=== PATIENT | female | born 1950 | race American Indian/Alaskan Native ===

== ENCOUNTER 2017-05-13 06:45 | Inpatient (IN) | payer MEDICARE, MEDICAID ==
[2017-05-13 06:46] VITALS: BMI 30.4
[2017-05-13 07:14] LABS: BASO # 0.1 K/uL (0.0-0.2); BASO % 1.4 % (0.0-2.0); EOS # 0.3 K/uL (0.0-0.7); EOS % 4.7 % (0.0-4.0); HEMATOCRIT 31.4 % (34.0-47.0); LYMPH # 0.7 K/uL (1.0-4.3); LYMPH % 12.5 % (20.0-40.0); MEAN CELL VOLUME 92.1 fL (81.0-99.0); MEAN CORPUSCULAR HEMOGLOBIN 28.8 pg (27.0-31.0); MEAN CORPUSCULAR HGB CONC 31.3 g/dL (33.0-37.0); MEAN PLATELET VOLUME 9.5 fL (7.2-11.7); MONO # 0.4 K/uL (0.0-0.8); MONO % 7.2 % (0.0-10.0); NRBC % 0.1 % (0.0-2.0); RED CELL DISTRIBUTION WIDTH 17.5 % (11.5-14.5); WHITE BLOOD COUNT 5.8 K/uL (4.8-10.8)
[2017-05-13 07:33] LABS: POTASSIUM 4.9 mmol/L (3.6-5.2)
[2017-05-13 07:35] LABS: ALB/GLOB RATIO 1.2 (1.0-2.1); BILIRUBIN,TOTAL 0.8 mg/dL (0.2-1.3); TOTAL PROTEIN 6.8 g/dL (6.3-8.3)
[2017-05-13 07:36] LABS: CALCIUM 8.5 mg/dl (8.6-10.4)
[2017-05-13 07:48] LABS: INR 2.4
[2017-05-13] MEDS ORDERED: Cefepime IV 1 gm in Dextrose 1 GM/50 ML BAG IVPB STA (08:23)
[2017-05-13] MEDS ORDERED: Sodium Chloride 0.9% 500 ML IV ONE ×2 (08:33→09:40)
--- NOTE | 2017-05-13 08:37 | C.PDOC ---
History Of Present Illness 67 year old female, with a PMHx of Diabetes, COPD, and CHF, sent to the ED from [facility] for evaluation of painful right heel wound for unknown duration. HPI limited due to language barrier, patient speaks Creole. Patient denies fever, but admits that the area is painful. Time Seen by Provider: 05/13/17 07:06 Chief Complaint (Nursing): Lower Extremity Problem/Injury History Per: Patient, Other (NH records & PMD) History/Exam Limitations: language barrier (patient speaks Creole ) Onset/Duration Of Symptoms: Unknown Current Symptoms Are (Timing): Still Present Severity: Moderate Additional History Per: Longterm Past Medical History Reviewed: Historical Data, Nursing Documentation, Vital Signs Vital Signs: Last Vital Signs Temp 97.9 F 05/13/17 06:52 Pulse 58 L 05/13/17 06:52 Resp 20 05/13/17 06:52 BP 154/98 H 05/13/17 06:52 Pulse Ox 94 L 05/13/17 08:42 - Medical History PMH: CHF, Diabetes, HTN, Hypercholesterolemia, End Stage Renal Disease, Chronic Kidney Disease - [facility] Procedures ANGIOPLASTY OF OTHER NON-CORONARY VESSEL(S) (09/15/14) ATHERECTOMY OF OTHER NON-CORONARY VESSEL(S) (01/14/14) CONTRAST ARTERIOGRAM-LEG (09/15/14) INSEJ [id number] PERIPHERAL NON-CORONARY VES STENT(S) (02/10/14) INSEJ OF DRUG-ELUTING STENT(S) OF OTH PERIPHERAL VESSEL(S) (09/15/14) INSERTION OF ONE VASCULAR STENT (09/15/14) LOC EXC LES METATAR/TAR (03/20/14) PACKED CELL TRANSFUSION (01/14/14) PROCEDURE ON SINGLE VESSEL (09/15/14) RADICAL EXCIS SKIN LES (01/11/99) VENOUS CATHETERIZATION NEC (03/03/14) Family History: States: No Known Family Hx - Social History Hx Tobacco Use: No Hx Alcohol Use: No Hx Substance Use: No - Immunization History Hx Tetanus Toxoid Vaccination: No (unknown) Hx Influenza Vaccination: No (unknown) Hx Pneumococcal Vaccination: (unknown) Review Of Systems Except As Marked, All Systems Reviewed And Found Negative. Constitutional: Negative for: Fever Cardiovascular: Negative for: Chest Pain, Palpitations Respiratory: Negative for: Cough, Shortness of Breath Gastrointestinal: Negative for: Abdominal Pain Musculoskeletal: Positive for: Other (right heel pain, wound ) Physical Exam - Physical Exam Appears: Well, Non-toxic, No Acute Distress Skin: Warm, Dry Head: Atraumatic, Normacephalic Eye(s): bilateral: Normal Inspection Oral Mucosa: Moist Cardiovascular: Rhythm Regular Respiratory: Normal Breath Sounds, No Rales, No Rhonchi, No Wheezing Gastrointestinal/Abdominal: Normal Exam, Bowel Sounds, Soft, No Tenderness, No Distention Extremity: Normal ROM, Tenderness (right heel ulcer, right foot warm to touch), No Pedal Edema, No Calf Tenderness, Other (approx 4-5 cm ulcer to the right heel with foul smelling, with discharge, chronic skin changes B/L lower legs) Pulses: Left Dorsalis Pedis: Normal, Right Dorsalis Pedis: Normal Neurological/Psych: Oriented x3 ED Course And Treatment - Laboratory Results Result Diagrams: 05/13/17 07:11 05/13/17 07:11 ECG: Interpreted By Me, Viewed By Me (sinus bradycardia 59 bpm, PVCs, left axis deviation, RBBB, no acute ST changes) ECG Interpretation: Abnormal O2 Sat by Pulse Oximetry: 94 (RA) Pulse Ox Interpretation: Normal - Other Rad right foot Xray X-Ray: Interpreted by Me, Viewed By Me (no fractures, no gas, no obvious periosteal elevation) Progress Note: Blood work, EKG, right foot X-Ray, and wound cultures were ordered. Patient given IV NS bolus, IV Vancomycin and IV cefepime. Consult entered for Dr. Romero, who has seen patient previously. - Physician Consult Information Physician Contacted: Maite Denis Outcome Of Conversation: Discussed patient with PMD, he agrees with admission for infected diabetic foot wound, dehydration/ARF. Disposition - Disposition Referrals: Maite Denis MD [Primary Care Provider] - Disposition Time: 08:33 Condition: STABLE Forms: [facility] (Bruneian) - Clinical Impression Clinical Impression: Diabetic infection of right foot, Acute on chronic renal failure, Dehydration - Scribe Statement The provider has reviewed the documentation as recorded by the Scribe Lesia Castellano All medical record entries made by the Scribe were at my direction and personally dictated by me. I have reviewed the chart and agree that the record accurately reflects my personal performance of the history, physical exam, medical decision making, and the department course for this patient. I have also personally directed, reviewed, and agree with the discharge instructions and disposition. Decision To Admit - Pt Status Changed To: Hospital Disposition Of: Inpatient - Admit Certification Admit to Inpatient:: After my assessment, the patient will require hospitalization for at least two midnights. This is because of the severity of symptoms shown, intensity of services needed, and/or the medical risk in this patient being treated as an outpatient. - InPatient: Physician Admission Certification: I certify that this patient requires 2 or more midnights of care for the following reason:: see notes - . Bed Request Type: Regular Admitting Physician: Maite Denis Patient Diagnosis: Diabetic infection of right foot, Dehydration, Acute on chronic renal failure
[2017-05-13] MEDS ORDERED: Vancomycin 1 gm/NS 200 ml 1 GM/200 ML BAG IVPB SCH (09:00)
[2017-05-13] MEDS ORDERED: Vancomycin 1 gm/NS 200 ml 1 GM/200 ML BAG IVPB ONE ×2 (09:00→10:00)
[2017-05-13] MEDS ORDERED: Vancomycin 1 GM 1 GM/250 ML BAG IVPB SCH (09:00)
[2017-05-13] MEDS ORDERED: Oxycodone/Acetaminophen 5/325 mg Tab PO PRN (10:01)
[2017-05-13] MEDS ORDERED: Sodium Chloride 0.9% 1,000 ML IV SCH (10:30)
--- NOTE | 2017-05-13 10:35 | CP.PCM.CON ---
History of Present Illness - History of Present Illness History of Present Illness: 67 year old female, with a PMHx of Diabetes, COPD, and CHF, sent to the ED from [facility] for evaluation of painful right heel wound for unknown duration. Has had surgery on right foot 2014 - 5th ray resection with angioplasty - Medical History PMH: CHF, Diabetes, HTN, Hypercholesterolemia, End Stage Renal Disease, Chronic Kidney Disease PVD - [facility] Procedures ANGIOPLASTY OF OTHER NON-CORONARY VESSEL(S) (09/15/14) ATHERECTOMY OF OTHER NON-CORONARY VESSEL(S) (01/14/14) CONTRAST ARTERIOGRAM-LEG (09/15/14) INSEJ [id number] PERIPHERAL NON-CORONARY VES STENT(S) (02/10/14) INSEJ OF DRUG-ELUTING STENT(S) OF OTH PERIPHERAL VESSEL(S) (09/15/14) INSERTION OF ONE VASCULAR STENT (09/15/14) LOC EXC LES METATAR/TAR (03/20/14) PACKED CELL TRANSFUSION (01/14/14) PROCEDURE ON SINGLE VESSEL (09/15/14) RADICAL EXCIS SKIN LES (01/11/99) VENOUS CATHETERIZATION NEC (03/03/14) Review of Systems - Constitutional Constitutional: As Per HPI - EENT Eyes: absent: As Per HPI, Blind Spots, Blurred Vision, Change in Vision, Decreased Night Vision, Diplopia, Discharge, Dry Eye, Exophthalmos, Floaters, Irritation, Itchy Eyes, Loss of Peripheral Vision, Pain, Photophobia, Requires Corrective Lenses, Sees Flashes, Spots in Vision, Tunnel Vision, Other Visual Disturbances, Loss of Vision, Other Ears: absent: As Per HPI, Decreased Hearing, Ear Discharge, Ear Pain, Tinnitus, Abnormal Hearing, Disequilibrium, Dizziness, Other Nose/Mouth/Throat: absent: As Per HPI, Epistaxis, Nasal Congestion, Nasal Discharge, Nasal Obstruction, Nasal Trauma, Nose Pain, Post Nasal Drip, Sinus Pain, Sinus Pressure, Bleeding Gums, Change in Voice, Dental Pain, Dry Mouth, Dysphagia, Halitosis, Hoarsness, Lip Swelling, Mouth Lesions, Mouth Pain, Odynophagia, Sore Throat, Throat Swelling, Tongue Swelling, Facial Pain, Neck Pain, Neck Mass, Other - Breasts Breasts: absent: As Per HPI, Change in Shape, Mass, Pain, Nipple Discharge, Nipple Inversion, Skin Changes, Swelling, Other - Cardiovascular Cardiovascular: absent: As Per HPI, Acrocyanosis, Chest Pain, Chest Pain at Rest , Chest Pain with Activity, Claudication, Diaphoresis, Dyspnea, Dyspnea on Exertion, Edema, Irregular Heart Rhythm, Pain Radiating to Arm/Neck/Jaw, Leg Edema, Leg Ulcers, Lightheadedness, Orthopnea, Palpitations, Paroxysmal Nocturnal Dyspnea, Pedal Edema, Radiating Pain, Rapid Heart Rate, Slow Heart Rate, Syncope, Other - Respiratory Respiratory: absent: As Per HPI, Cough, Dyspnea, Hemoptysis, Dyspnea on Exertion , Wheezing, Snoring, Stridor, Pain on Inspiration, Chest Congestion, Excessive Mucous Production, Change in Mucous Color, Pain with Coughing, Other - Gastrointestinal Gastrointestinal: absent: As Per HPI, Abdominal Pain, Belching, Bloating, Change in Bowel Habits, Change in Stool Character, Coffee Ground Emesis, Constipation, Cramping, Diarrhea, Dyspepsia, Dysphagia, Early Satiety, Excessive Flatus, Fecal Incontinence, Heartburn, Hematemesis, Hematochezia, Loose Stools, Melena, Nausea, Odynophagia, Temesmus, Vomiting, Other - Genitourinary Genitourinary: absent: As Per HPI, Change in Urinary Stream, Difficulty Urinating, Dysuria, Flank Pain, Hematuria, Pyuria, Nocturia, Urinary Incontinence, Urinary Frequency, Urinary Hesitance, Urinary Urgency, Voiding Freq/Small Amts, Freq UTI, Hx Renal/Bladder Calculi, Hx /Renal Surgery, Bladder Distension, Other - Reproductive: Female Reproductive:Female: absent: As Per HPI, Amenorrhea, Amenorrhea/ Control, Currently Menstual, Cycle <21 Days, Cycle >35 Days, Cycle Variable, Menses 1-7 Days, Menses >/= 8 Days, Menses Variable, Cycle > 4 Weeks Between, No Menses for 6 Months, Heavy Menses, Light Menses, Normal Menses, Spotting Between Cycles , S/P Hysterectomy, Menopausal, Post Menopausal, Premenarche, Abnormal Vaginal Bleeding, Dysmenorrhea, Dyspareunia, Genital Lesions, Genital Pruritis, Pelvic Pain, Prolapse Symptoms, Sexual Dysfunction, Vaginal Discharge, Vaginal Dryness , Vaginal Odor, Vaginal Pruritis, Other - Menstruation Menstruation: absent: As Per HPI, Amenorrhea, Amenorrhea/ Control, Currently Menstual, Cycle <21 Days, Cycle >35 Days, Cycle Variable, Menses 1-7 Days, Menses >/= 8 Days, Menses Variable, Cycle > 4 Weeks Between, No Menses for 6 Months, Heavy Menses, Light Menses, Normal Menses, Spotting Between Cycles , S/P Hysterectomy, Menopausal, Post Menopausal, Premenarche, Abnormal Vaginal Bleeding, Dysmenorrhea, Other - Musculoskeletal Musculoskeletal: As Per HPI, Numbness - Integumentary Integumentary: As Per HPI, Skin Pain, Wounds - Neurological Neurological: As Per HPI - Psychiatric Psychiatric: absent: As Per HPI, Abnormal Sleep Pattern, Anhedonia, Anxiety, Auditory Hallucinations, Behavioral Changes, Change in Appetite, Change in Libido, Confusion, Depression, Difficulty Concentrating, Hallucinations, Homicidal Ideation, Hopelessness, Irritability, Memory Loss, Mood Swings, Panic Attacks, Paranoia, Suicidal Ideation, Visual Hallucinations, Tactile Hallucinations, Other - Endocrine Endocrine: absent: As Per HPI, Change in Body Appearance, Change in Libido, Cold Intolorance, Deepening of Voice, Excessive Sweating, Fatigue, Flushing, Heat Intolorance, Increase in Ring/Shoe/Hat Size, Palpitations, Polydipsia, Polyphagia, Polyuria, Other - Hematologic/Lymphatic Hematologic: absent: As Per HPI, Easy Bleeding, Easy Bruising, Lymphadenopathy, Other Past Patient History - Past Medical History & Family History Past Medical History?: Yes - Past Social History Smoking Status: Never Smoked - CARDIAC Hx Congestive Heart Failure: Yes Hx Hypercholesterolemia: Yes Hx Hypertension: Yes - PULMONARY Hx Respiratory Disorders: Yes (Dyspnea) - NEUROLOGICAL Hx Neurological Disorder: Yes HX Cerebrovascular Accident: Yes - HEENT Hx HEENT Problems: No - RENAL Hx Chronic Kidney Disease: Yes - ENDOCRINE/METABOLIC Hx Endocrine Disorders: Yes Hx Diabetes Mellitus Type 2: Yes - HEMATOLOGICAL/ONCOLOGICAL Hx Blood Disorders: No - INTEGUMENTARY Hx Dermatological Problems: Yes Other/Comment: pt. w/ diabetic ulcer-left heel - MUSCULOSKELETAL/RHEUMATOLOGICAL Hx Musculoskeletal Disorders: Yes Hx Falls: Yes Hx Osteomyelitis: Yes - GASTROINTESTINAL Hx Gastrointestinal Disorders: No - GENITOURINARY/GYNECOLOGICAL Hx Genitourinary Disorders: No - PSYCHIATRIC Hx Substance Use: No - SURGICAL HISTORY Hx Surgeries: Yes Hx Amputation: Yes (Toe) Hx Angiogram: Yes Hx Angioplasty: Yes (02/10/14) - ANESTHESIA Hx Anesthesia: Yes Hx Anesthesia Reactions: No Hx Malignant Hyperthermia: No Meds Allergies/Adverse Reactions: Allergies Allergy/AdvReac Type Severity Reaction Status Date / Time No Known Allergies Allergy Verified 03/20/14 15:10 - Medications Medications: Current Medications Amlodipine Besylate (Norvasc) 5 mg PO DAILY ON LICENSE OF [facility] Clopidogrel Bisulfate (Plavix) 75 mg PO DAILY ON LICENSE OF [facility] Epoetin Etienne (Procrit) unit SC MWF ON LICENSE OF [facility] Fluoxetine HCl (Prozac) 20 mg PO DAILY ON LICENSE OF [facility] Furosemide (Lasix) 40 mg PO DAILY ON LICENSE OF [facility] Home Med (Atorvastatin [Lipitor]) 20 mg PO HS ON LICENSE OF [facility] Home Med (Calcium Acetate) 667 mg PO TID ON LICENSE OF [facility] Home Med (Warfarin [Coumadin]) 5 mg PO HS ON LICENSE OF [facility] Vancomycin/Sodium Chloride (Vancomycin 1 Gm/Ns 200 Ml) 1 gm in 200 mls @ 133.333 mls/hr IVPB ONCE ONE Stop: 05/13/17 11:29 Last Admin: 05/13/17 09:30 Dose: 133.333 mls/hr Sodium Chloride (Sodium Chloride 0.9%) 1,000 mls @ 60 mls/hr IV .[id number] ON LICENSE OF [facility] Insulin Aspart (Novolog Mix 70/30 (70/30 Units/Ml)) 0 units SC QID ON LICENSE OF [facility] PRN Reason: Protocol Insulin Glargine (Lantus) 10 unit SC HS ON [facility] OF [facility] Lactulose (Enulose) 20 gm PO HS ON LICENSE OF [facility] Oxycodone/Acetaminophen (Percocet 5/325 Mg Tab) 1 tab PO Q4 PRN PRN Reason: Pain, Mild (1-3) Stop: 05/16/17 10:02 Pantoprazole Sodium (Protonix Ec Tab) 40 mg PO DAILY ON [facility] Sucralfate (Carafate Tab) 1 gm PO BID ON LICENSE OF [facility] Vitamin B Complex/Vit C/Folic Acid (Nephro-Naren) 1 tab PO DAILY ON LICENSE OF [facility] Physical Exam - Constitutional Appears: Non-toxic, Chronically Ill - Head Exam Head Exam: ATRAUMATIC, NORMAL INSPECTION, NORMOCEPHALIC - Eye Exam Eye Exam: EOMI, PERRL. absent: Scleral icterus - ENT Exam ENT Exam: Mucous Membranes Dry, Normal External Ear Exam - Neck Exam Neck exam: Negative for: Lymphadenopathy - Respiratory Exam Respiratory Exam: Decreased Breath Sounds - Cardiovascular Exam Cardiovascular Exam: REGULAR RHYTHM, +S1, +S2 - GI/Abdominal Exam GI & Abdominal Exam: Diminished Bowel Sounds, Soft. absent: Tenderness - Rectal Exam Rectal Exam: Deferred - Extremities Exam Extremities exam: Positive for: pedal edema, tenderness. Negative for: calf tenderness, pedal pulses present - Back Exam Back exam: absent: CVA tenderness (L), CVA tenderness (R) - Neurological Exam Neurological exam: Alert, CN II-XII Intact, Reflexes Normal - Psychiatric Exam Psychiatric exam: Depressed - Skin Skin Exam: Dry, Intact Results - Vital Signs Recent Vital Signs: Last Vital Signs Temp 97.9 F 05/13/17 06:52 Pulse 58 L 05/13/17 06:52 Resp 20 05/13/17 06:52 BP 154/98 H 05/13/17 06:52 Pulse Ox 94 L 05/13/17 09:24 - Labs Result Diagrams: 05/13/17 07:11 05/13/17 07:11 Labs: Laboratory Results - last 24 hr 05/13/17 05/13/17 05/13/17 06:50 07:00 07:11 WBC 5.8 RBC 3.41 L Hgb 9.8 L Hct 31.4 L MCV 92.1 D MCH 28.8 MCHC 31.3 L RDW 17.5 H Plt Count 227 MPV 9.5 Neut % (Auto) 74.2 Lymph % (Auto) 12.5 L Giles % (Auto) 7.2 Eos % (Auto) 4.7 H Baso % (Auto) 1.4 Neut # 4.3 Lymph # 0.7 L Giles # 0.4 Eos # 0.3 Baso # 0.1 PT INR APTT Sodium Potassium Chloride Carbon Dioxide Anion Gap BUN Creatinine Est GFR ( Amer) Est GFR (Non-Af Amer) POC Glucose (mg/dL) 249 H Random Glucose Calcium Total Bilirubin AST ALT Alkaline Phosphatase Total Protein Albumin Globulin Albumin/Globulin Ratio Blood Type O POSITIVE Antibody Screen Negative 05/13/17 05/13/17 07:11 07:11 WBC RBC Hgb Hct MCV MCH MCHC RDW Plt Count MPV Neut % (Auto) Lymph % (Auto) Giles % (Auto) Eos % (Auto) Baso % (Auto) Neut # Lymph # Giles # Eos # Baso # PT 27.6 H INR 2.4 APTT 42 H Sodium 138 Potassium 4.9 Chloride 105 Carbon Dioxide 22 Anion Gap 16 BUN 73 H Creatinine 2.4 H Est GFR ( Amer) 24 Est GFR (Non-Af Amer) 20 POC Glucose (mg/dL) Random Glucose 214 H Calcium 8.5 L Total Bilirubin 0.8 AST 33 ALT 41 Alkaline Phosphatase 191 H Total Protein 6.8 Albumin 3.7 Globulin 3.1 Albumin/Globulin Ratio 1.2 Blood Type Antibody Screen Assessment & Plan (1) Acute on chronic renal failure Status: Acute (2) Dehydration Status: Acute (3) Diabetic infection of right foot Status: Acute (4) Anemia Status: Acute (5) Chronic heel ulcer Status: Acute - Assessment and Plan (Free Text) Assessment: recc: wound cultures, vascular eval , arterial dopplers, MRI and or ceretec scan r/o OM IV Vanco/ zosyn ordered
--- NOTE | 2017-05-13 10:42 | CP.PCM.PN ---
Subjective - Date & Time of Evaluation Date of Evaluation: 05/13/17 Time of Evaluation: 10:00 - Subjective Subjective: PGY3 Medicine Note - Dr. Denis's Service: Patient seen and examined at bedside this morning in the ED. Patient is a 67 year old female with PMHx of DM II, COPD, CHF, HLD, HtN, PVD, CvA, ESRD and osteomyelitis presenting for right heel ulcer. Patient speaks Creole and some Chinese. She says she does not walk without another person helping her. She is not sure how long she has had the ulcer but she thinks 3-4 days. She says it was bleeding and painful but does not hurt now because they gave her medicine for it. She says her legs are always swollen but the right one more than the left recently. Patient denies fever, chills, chest pain, SOB. PMHx: as above PSHx: Right 5th metatarsal amputation and angioplasty 2013 Social Hx: no tobacco, no ETOH, no drugs Allergies: NKDA Objective - Vital Signs/Intake and Output Vital Signs (last 24 hours): Temp Pulse Resp BP Pulse Ox 97.9 F 58 L 20 154/98 H 94 L 05/13/17 06:52 05/13/17 06:52 05/13/17 06:52 05/13/17 06:52 05/13/17 09:24 - Medications Medications: Current Medications Amlodipine Besylate (Norvasc) 5 mg PO DAILY [facility] Clopidogrel Bisulfate (Plavix) 75 mg PO DAILY [facility] Epoetin Etienne (Procrit) unit SC MWF [facility] Fluoxetine HCl (Prozac) 20 mg PO DAILY [facility] Furosemide (Lasix) 40 mg PO DAILY [facility] Home Med (Atorvastatin [Lipitor]) 20 mg PO HS [facility] Home Med (Calcium Acetate) 667 mg PO TID [facility] Home Med (Warfarin [Coumadin]) 5 mg PO HS [facility] Vancomycin/Sodium Chloride (Vancomycin 1 Gm/Ns 200 Ml) 1 gm in 200 mls @ 133.333 mls/hr IVPB ONCE ONE Stop: 05/13/17 11:29 Last Admin: 05/13/17 09:30 Dose: 133.333 mls/hr Sodium Chloride (Sodium Chloride 0.9%) 1,000 mls @ 60 mls/hr IV .[id number] [facility] Insulin Aspart (Novolog Mix 70/30 (70/30 Units/Ml)) 0 units SC QID [facility] PRN Reason: Protocol Insulin Glargine (Lantus) 10 unit SC HS [facility] Lactulose (Enulose) 20 gm PO HS [facility] Oxycodone/Acetaminophen (Percocet 5/325 Mg Tab) 1 tab PO Q4 PRN PRN Reason: Pain, Mild (1-3) Stop: 05/16/17 10:02 Pantoprazole Sodium (Protonix Ec Tab) 40 mg PO DAILY [facility] Sucralfate (Carafate Tab) 1 gm PO BID [facility] Vitamin B Complex/Vit C/Folic Acid (Nephro-Naren) 1 tab PO DAILY [facility] - Labs Labs: 05/13/17 07:11 05/13/17 07:11 PT 27.6 SECONDS (9.7-12.2) H 05/13/17 07:11 INR 2.4 05/13/17 07:11 APTT 42 SECONDS (21-34) H 05/13/17 07:11 - Constitutional Appears: Non-toxic, No Acute Distress - Head Exam Head Exam: NORMAL INSPECTION - Eye Exam Eye Exam: EOMI - ENT Exam ENT Exam: Mucous Membranes Moist - Respiratory Exam Respiratory Exam: Clear to Ausculation Bilateral, NORMAL BREATHING PATTERN. absent: Rales, Rhonchi, Wheezes - Cardiovascular Exam Cardiovascular Exam: REGULAR RHYTHM, +S1, +S2. absent: Gallop, Rubs, Murmur - GI/Abdominal Exam GI & Abdominal Exam: Soft, Normal Bowel Sounds. absent: Tenderness - Extremities Exam Extremities Exam: Pedal Edema Additional comments: pitting edema and venous stasis changes to mid calf b/l negative Shiloh's Warm toes b/l Right heel wrapped in clean bandage odorous feet - Neurological Exam Neurological Exam: Alert, Awake, Oriented x3 - Psychiatric Exam Psychiatric exam: Normal Affect, Normal Mood - Skin Skin Exam: Normal Color, Warm Assessment and Plan - Assessment and Plan (Free Text) Assessment: Right Diabetic Heel Ulcer F/U Right foot X ray result Cefepime and Vanco in ER ID consult - Dr. Nunez - f/u recs Vascular Surgery consult - Dr. Romero - f/u recs Wound Care Nurse consult - f/u recs NPO in case of surgery NS @ 60ml/hr Percocet 5/325mg PO Q4H PRN pain Pedal Edema and PVD Stopping Norvasc Starting Lisinopril 10mg PO daily Acute on Chronic ESRD Dailysis [facility] Procrit [facility] Nephrology consult - Dr. Jett - help appreciated Phoslo 667mg PO TID DMII F/U HgbA1C Lantus 10U SC HS Novolog 70/30 ISS H/O CVA Plavix 75mg PO daily H/O PVD with stents Plavix 75mg PO daily Warfarin 5mg PO HS INR 2.4 F/U INR daily H/O CHF Lasix 40mg PO daily No B-kam secondary to bradycardia Starting Lisinopril 10mg PO daily H/O Hyperlipidemia Converting home med of lipitor 20mg PO daily to formulary Depression Prozac 20mg PO daily Prophylaxis Protonix 40mg PO daily Sucralfate Warfarin Plavix All medical management per Dr. Denis
[2017-05-13] MEDS ORDERED: Sodium Chloride 0.9% 1,000 ML ONE (10:54)
--- NOTE | 2017-05-13 11:49 | RAD ---
PROCEDURE: Right Foot Radiographs. HISTORY: heel wound, r/o gas, osteo COMPARISON: 03/02/2014 FINDINGS: BONES: No evidence of acute osteomyelitis. Postoperative findings related to resection of the 5th digit and distal 5th metatarsal. JOINTS: Normal. SOFT TISSUES: Ulcer adjacent to the calcaneus without evidence of calcaneal osteomyelitis. Diffuse soft tissue swelling about the right ankle and foot. OTHER FINDINGS: None. IMPRESSION: Soft tissue swelling without acute articular or osseous abnormality. No evidence radiographically of acute osteomyelitis. Concordant results with the preliminary interpretation rendered by the emergency department physician procedure.
[2017-05-13] MEDS: Piperacill/Tazo 2.25gm in Dex 2.25 GM/50 ML BAG IVPB SCH ×2 (12:05→20:00)
--- NOTE | 2017-05-13 15:11 | CP.PCM.CON ---
History of Present Illness - History of Present Illness History of Present Illness: Initial Nephrology Consultation: Assessment: Stable Non-healing ulcer on heel with celluliits Diabetic chronic Kidney Disease (E11.22) Hypertensive Chronic Kidney Disease (I12.9) Chronic Kidney Disease (N18.4) Stage 4 with ? mg proteinuria (R80.9) possibly due to DM and or HTN Anemia (D64.9), Hyperphosphatemia (E83.39), HTN (I12.9) CHF, obesity, PVD, depression Plan No acute need for renal replacement therapy at this time. Hypertension control with meds as ordered. Patient on ACEI/ARB as lisinopril Monitor Input/Output, daily weights and renal function with basic metabolic panel if planned for angiogram, pt will be at increased risk of contrast nephropathy. IVF not indicated due to CHF and current edema (would hold lasix in that case) and continue with statin, give mucormyst 1200 mg bid x 48 hrs. continue with her home dose epogen (hold if Hb>11) and phoslo Check urine analysis, spot protein/creatinine and albumin/creatinine ratio, renal sonogram. Check for 25-OH vitamin D, iPTH, TSAT and Ferritin Check serum protein electrophoresis with immunofixation Dose meds/antibiotics for reduced GFR. Avoid fleets enema/magnesium based laxatives. Avoid nephrotoxins/NSAIDs/ iodinated contrast (unless needed emergently) Glycemic control Further work up/management as per primary team Thanks for allowing me to participate in care of your patient. Will follow patient with you. Please call if any Qs Dr Juan Torres Office: [phone] Chief Complaint; heel ulcer HPI: Pt is a 67 y/o F with hx of diabetes Mellitus hypertension, CHF, chronic anemia, hyperphos, DVT on coumadin, drpression, obesity, dementia, CVA, CKD ? stage and a long-term resident at [facility] presented with complaints of non healing ulcer Rt heel. staff helped in creole interpretation. She Denies chest pain, palpitation, shortness of breath, leg swelling but unable to provide comprehensive ROS due to her dementia ROS: unable to obtain further Physical Examination: General Appearance: Comfortable, in no acute respiratory distress, co-operative . obese Vitals reviewed and noted as below Head; Atraumatic, normocephalic ENT: no ulcers no thrush. Tongue is midline. Oropharynx: no rash or ulcers. EYES: Pupils are equal, round and reactive to light accommodation. Eye muscles and extraocular movement intact. Sclera is anicteric. Neck; supple no lymphadenopathy, no thyromegaly or bruit Lungs: Normal respiratory rate/effort. Breath sounds bilateral equal and clear Heart: Normal rate. s1s2 normal. No rub or gallop. Extremities: 1-2+ edema. No varicose veins. has chronic venous stasis changes. both feets in dressings. Neurological: Patient is alert, awake and not oriented to person, place or time. No focal deficit. Strength bilateral appropriate and equal Skin: Warm and dry. Normal turgor. No rash. Palpitation: Normal elasticity for age Abdomen: Abdomen is soft. Bowel sounds +. There is no abdominal tenderness, no guarding/rigidity no organomegaly. she is obese, flank and lower abdomen fullness noted. Psych: lack insight MSK: no joint tenderness or swelling. Digits and nails normal, no deformity : kidney or bladder not palpable Labs/imaging/EKG reviewed. Past medical history, past surgical history, family history, social history, allergy reviewed and noted as below Family hx: no hx of CKD. Rest non-contributory Past Patient History - Past Medical History & Family History Past Medical History?: Yes - Past Social History Smoking Status: Never Smoked - CARDIAC Hx Congestive Heart Failure: Yes Hx Hypercholesterolemia: Yes Hx Hypertension: Yes - PULMONARY Hx Respiratory Disorders: Yes (Dyspnea) - NEUROLOGICAL Hx Neurological Disorder: Yes HX Cerebrovascular Accident: Yes - HEENT Hx HEENT Problems: No - RENAL Hx Chronic Kidney Disease: Yes - ENDOCRINE/METABOLIC Hx Endocrine Disorders: Yes Hx Diabetes Mellitus Type 2: Yes - HEMATOLOGICAL/ONCOLOGICAL Hx Blood Disorders: No - INTEGUMENTARY Hx Dermatological Problems: Yes Other/Comment: pt. w/ diabetic ulcer-left heel - MUSCULOSKELETAL/RHEUMATOLOGICAL Hx Musculoskeletal Disorders: Yes Hx Falls: Yes Hx Osteomyelitis: Yes - GASTROINTESTINAL Hx Gastrointestinal Disorders: No - GENITOURINARY/GYNECOLOGICAL Hx Genitourinary Disorders: No - PSYCHIATRIC Hx Substance Use: No - SURGICAL HISTORY Hx Surgeries: Yes Hx Amputation: Yes (Toe) Hx Angiogram: Yes Hx Angioplasty: Yes (02/10/14) - ANESTHESIA Hx Anesthesia: Yes Hx Anesthesia Reactions: No Hx Malignant Hyperthermia: No Meds Allergies/Adverse Reactions: Allergies Allergy/AdvReac Type Severity Reaction Status Date / Time No Known Allergies Allergy Verified 03/20/14 15:10 - Medications Medications: Current Medications Calcium Acetate (Phoslo) 667 mg PO TID [facility] Last Admin: 05/13/17 14:22 Dose: 667 mg Clopidogrel Bisulfate (Plavix) 75 mg PO DAILY [facility] Epoetin Etienne (Procrit) 10,000 unit SC MWF [facility] Fluoxetine HCl (Prozac) 20 mg PO DAILY [facility] Furosemide (Lasix) 40 mg PO DAILY [facility] Sodium Chloride (Sodium Chloride 0.9%) 1,000 mls @ 60 mls/hr IV .[id number] [facility] Last Admin: 05/13/17 10:55 Dose: 60 mls/hr Piperacillin Sod/Tazobactam Sod (Zosyn 2.25 Gm Iv Premix) 2.25 gm in 50 mls @ 100 mls/hr IVPB Q8H [facility] Last Admin: 05/13/17 12:05 Dose: 100 mls/hr Vancomycin HCl 1,000 mg/ (Sodium Chloride) 100 mls @ 100 mls/hr IVPB MWF [facility] Insulin Aspart (Novolog Mix 70/30 (70/30 Units/Ml)) 0 units SC QID [facility] PRN Reason: Protocol Insulin Glargine (Lantus) 10 unit SC HS [facility] Lactulose (Enulose) 20 gm PO HS [facility] Lisinopril (Zestril) 10 mg PO DAILY [facility] Last Admin: 05/13/17 11:58 Dose: Not Given Oxycodone/Acetaminophen (Percocet 5/325 Mg Tab) 1 tab PO Q4 PRN PRN Reason: Pain, Mild (1-3) Stop: 05/16/17 10:02 Pantoprazole Sodium (Protonix Ec Tab) 40 mg PO DAILY [facility] Rosuvastatin Calcium (Crestor) 10 mg PO HS [facility] Sucralfate (Carafate Tab) 1 gm PO BID [facility] Vitamin B Complex/Vit C/Folic Acid (Nephro-Naren) 1 tab PO DAILY [facility] Warfarin Sodium (Coumadin) 5 mg PO DAILY@1800 [facility] Results - Vital Signs Recent Vital Signs: Last Vital Signs Temp 98.6 F 05/13/17 14:17 Pulse 88 05/13/17 14:17 Resp 18 05/13/17 14:17 BP 176/84 H 05/13/17 14:17 Pulse Ox 95 05/13/17 14:17 - Labs Result Diagrams: 05/13/17 07:11 05/13/17 07:11 Labs: Laboratory Results - last 24 hr 05/13/17 05/13/17 05/13/17 06:50 07:00 07:11 WBC 5.8 RBC 3.41 L Hgb 9.8 L Hct 31.4 L MCV 92.1 D MCH 28.8 MCHC 31.3 L RDW 17.5 H Plt Count 227 MPV 9.5 Neut % (Auto) 74.2 Lymph % (Auto) 12.5 L [place] % (Auto) 7.2 Eos % (Auto) 4.7 H Baso % (Auto) 1.4 Neut # 4.3 Lymph # 0.7 L [place] # 0.4 Eos # 0.3 Baso # 0.1 PT INR APTT Sodium Potassium Chloride Carbon Dioxide Anion Gap BUN Creatinine Est GFR ( Amer) Est GFR (Non-Af Amer) POC Glucose (mg/dL) 249 H Random Glucose Calcium Total Bilirubin AST ALT Alkaline Phosphatase Total Protein Albumin Globulin Albumin/Globulin Ratio Blood Type O POSITIVE Antibody Screen Negative 05/13/17 05/13/17 05/13/17 07:11 07:11 14:24 WBC RBC Hgb Hct MCV MCH MCHC RDW Plt Count MPV Neut % (Auto) Lymph % (Auto) [place] % (Auto) Eos % (Auto) Baso % (Auto) Neut # Lymph # [place] # Eos # Baso # PT 27.6 H INR 2.4 APTT 42 H Sodium 138 Potassium 4.9 Chloride 105 Carbon Dioxide 22 Anion Gap 16 BUN 73 H Creatinine 2.4 H Est GFR ( Amer) 24 Est GFR (Non-Af Amer) 20 POC Glucose (mg/dL) 200 H Random Glucose 214 H Calcium 8.5 L Total Bilirubin 0.8 AST 33 ALT 41 Alkaline Phosphatase 191 H Total Protein 6.8 Albumin 3.7 Globulin 3.1 Albumin/Globulin Ratio 1.2 Blood Type Antibody Screen
[2017-05-13] MEDS ORDERED: DEXTROSE 5% IVPB SCH (18:00)
[2017-05-13] MEDS ORDERED: WATER IVPB SCH (18:00)
[2017-05-13] MEDS ORDERED: ACETYLCYSTEINE IVPB SCH (18:00)
[2017-05-13] MEDS: (Novolog Mix 70/30) Insulin Aspart/Insulin Aspar 100 units/ml SC SCH ×2 (18:00→22:25)
--- NOTE | 2017-05-13 18:04 | CP.PCM.CON ---
History of Present Illness - History of Present Illness History of Present Illness: Vascular Surgery Consult Note for Dr. Romero Reason for consult: Right heel ulcer 67 year old female with past medical history of DM, HLD, HTN, PVD, CVA, ESRD presented to [facility] ED for complaint of right heel ulcer. Patient primarily speaks Creole. [employer] Operator was used to obtain most of the history. Patient states that she has had bilateral heel wounds for the past 5-6 months. Patient reports to having pain in both legs. She reports the pain is controlled during the day but is worse at night. She rates the pain as moderate. She describes the pain as intermittent and sharp located in bilateral feet without radiation. She denies any exacerbating and alleviating factors specifically. Admits fever/ chills. Denies chest pain, SOB, Past Medical history: DM, COPD, CHF, HLD, HTN, PVD, CVA, ESRD and osteomyelitis Meds: As per EMR Allergy: NKDA Past surgical history: Right 5th metatarsal amputation, knee surgery and angioplasty Family history: Unknown Social: denies tobacco/ETOH/illicit drug use Review of Systems - Review of Systems All systems: reviewed and no additional remarkable complaints except (fever/ chills, leg pain, heel wounds) Past Patient History - Past Medical History & Family History Past Medical History?: Yes - Past Social History Smoking Status: Never Smoked - CARDIAC Hx Congestive Heart Failure: Yes Hx Hypercholesterolemia: Yes Hx Hypertension: Yes - PULMONARY Hx Respiratory Disorders: Yes (Dyspnea) - NEUROLOGICAL Hx Neurological Disorder: Yes HX Cerebrovascular Accident: Yes - HEENT Hx HEENT Problems: No - RENAL Hx Chronic Kidney Disease: Yes - ENDOCRINE/METABOLIC Hx Endocrine Disorders: Yes Hx Diabetes Mellitus Type 2: Yes - HEMATOLOGICAL/ONCOLOGICAL Hx Blood Disorders: No - INTEGUMENTARY Hx Dermatological Problems: Yes Other/Comment: pt. w/ diabetic ulcer-left heel - MUSCULOSKELETAL/RHEUMATOLOGICAL Hx Musculoskeletal Disorders: Yes Hx Falls: Yes Hx Osteomyelitis: Yes - GASTROINTESTINAL Hx Gastrointestinal Disorders: No - GENITOURINARY/GYNECOLOGICAL Hx Genitourinary Disorders: No - PSYCHIATRIC Hx Substance Use: No - SURGICAL HISTORY Hx Surgeries: Yes Hx Amputation: Yes (Toe) Hx Angiogram: Yes Hx Angioplasty: Yes (02/10/14) - ANESTHESIA Hx Anesthesia: Yes Hx Anesthesia Reactions: No Hx Malignant Hyperthermia: No Meds Allergies/Adverse Reactions: Allergies Allergy/AdvReac Type Severity Reaction Status Date / Time No Known Allergies Allergy Verified 03/20/14 15:10 - Medications Medications: Current Medications Acetylcysteine (Acetylcysteine 20%) 6 ml PO Q12H [facility] Stop: 05/15/17 07:01 Calcium Acetate (Phoslo) 667 mg PO TID [facility] Last Admin: 05/13/17 17:53 Dose: 667 mg Clopidogrel Bisulfate (Plavix) 75 mg PO DAILY [facility] Epoetin Etienne (Procrit) 10,000 unit SC MWF [facility] Fluoxetine HCl (Prozac) 20 mg PO DAILY [facility] Furosemide (Lasix) 40 mg PO DAILY [facility] Piperacillin Sod/Tazobactam Sod (Zosyn 2.25 Gm Iv Premix) 2.25 gm in 50 mls @ 100 mls/hr IVPB Q8H [facility] Last Admin: 05/13/17 12:05 Dose: 100 mls/hr Vancomycin HCl 1,000 mg/ (Sodium Chloride) 100 mls @ 100 mls/hr IVPB MWF [facility] Insulin Aspart (Novolog Mix 70/30 (70/30 Units/Ml)) 0 units SC QID [facility] PRN Reason: Protocol Insulin Glargine (Lantus) 10 unit SC HS [facility] Lactulose (Enulose) 20 gm PO HS [facility] Lisinopril (Zestril) 10 mg PO DAILY [facility] Last Admin: 05/13/17 11:58 Dose: Not Given Oxycodone/Acetaminophen (Percocet 5/325 Mg Tab) 1 tab PO Q4 PRN PRN Reason: Pain, Mild (1-3) Stop: 05/16/17 10:02 Pantoprazole Sodium (Protonix Ec Tab) 40 mg PO DAILY [facility] Rosuvastatin Calcium (Crestor) 10 mg PO HS [facility] Sucralfate (Carafate Tab) 1 gm PO BID [facility] Last Admin: 05/13/17 17:52 Dose: 1 gm Vitamin B Complex/Vit C/Folic Acid (Nephro-Naren) 1 tab PO DAILY [facility] Warfarin Sodium (Coumadin) 5 mg PO DAILY@1800 [facility] Last Admin: 05/13/17 17:53 Dose: 5 mg Physical Exam - Constitutional Appears: No Acute Distress - Head Exam Head Exam: ATRAUMATIC, NORMOCEPHALIC - Eye Exam Eye Exam: EOMI, Normal appearance - ENT Exam ENT Exam: Mucous Membranes Moist - Respiratory Exam Respiratory Exam: NORMAL BREATHING PATTERN - Cardiovascular Exam Cardiovascular Exam: REGULAR RHYTHM - GI/Abdominal Exam GI & Abdominal Exam: Soft. absent: Tenderness - Extremities Exam Extremities exam: Positive for: pedal pulses present (via doppler). Negative for: calf tenderness Additional comments: DP/PT on right found via doppler DP on left found via doppler bilateral heel ulcers. dressings clean, dry, and intact - Neurological Exam Neurological exam: Alert, Oriented x3 - Psychiatric Exam Psychiatric exam: Normal Affect, Normal Mood - Skin Skin Exam: Dry, Warm Results - Vital Signs Recent Vital Signs: Last Vital Signs Temp 98.1 F 05/13/17 15:00 Pulse 61 05/13/17 15:00 Resp 20 05/13/17 15:00 BP 151/73 H 05/13/17 15:00 Pulse Ox 95 05/13/17 15:00 - Labs Result Diagrams: 05/13/17 07:11 05/13/17 07:11 Labs: Laboratory Results - last 24 hr 05/13/17 05/13/17 05/13/17 06:50 07:00 07:11 WBC 5.8 RBC 3.41 L Hgb 9.8 L Hct 31.4 L MCV 92.1 D MCH 28.8 MCHC 31.3 L RDW 17.5 H Plt Count 227 MPV 9.5 Neut % (Auto) 74.2 Lymph % (Auto) 12.5 L [place] % (Auto) 7.2 Eos % (Auto) 4.7 H Baso % (Auto) 1.4 Neut # 4.3 Lymph # 0.7 L [place] # 0.4 Eos # 0.3 Baso # 0.1 PT INR APTT Sodium Potassium Chloride Carbon Dioxide Anion Gap BUN Creatinine Est GFR ( Amer) Est GFR (Non-Af Amer) POC Glucose (mg/dL) 249 H Random Glucose Calcium Total Bilirubin AST ALT Alkaline Phosphatase Total Protein Albumin Globulin Albumin/Globulin Ratio Blood Type O POSITIVE Antibody Screen Negative 05/13/17 05/13/17 05/13/17 07:11 07:11 14:24 WBC RBC Hgb Hct MCV MCH MCHC RDW Plt Count MPV Neut % (Auto) Lymph % (Auto) [place] % (Auto) Eos % (Auto) Baso % (Auto) Neut # Lymph # [place] # Eos # Baso # PT 27.6 H INR 2.4 APTT 42 H Sodium 138 Potassium 4.9 Chloride 105 Carbon Dioxide 22 Anion Gap 16 BUN 73 H Creatinine 2.4 H Est GFR ( Amer) 24 Est GFR (Non-Af Amer) 20 POC Glucose (mg/dL) 200 H Random Glucose 214 H Calcium 8.5 L Total Bilirubin 0.8 AST 33 ALT 41 Alkaline Phosphatase 191 H Total Protein 6.8 Albumin 3.7 Globulin 3.1 Albumin/Globulin Ratio 1.2 Blood Type Antibody Screen 05/13/17 16:13 WBC RBC Hgb Hct MCV MCH MCHC RDW Plt Count MPV Neut % (Auto) Lymph % (Auto) [place] % (Auto) Eos % (Auto) Baso % (Auto) Neut # Lymph # [place] # Eos # Baso # PT INR APTT Sodium Potassium Chloride Carbon Dioxide Anion Gap BUN Creatinine Est GFR ( Amer) Est GFR (Non-Af Amer) POC Glucose (mg/dL) 218 H Random Glucose Calcium Total Bilirubin AST ALT Alkaline Phosphatase Total Protein Albumin Globulin Albumin/Globulin Ratio Blood Type Antibody Screen Assessment & Plan - Assessment and Plan (Free Text) Plan: 67 F with right heel ulcer -Angiogram Saturday -Mucomyst -Analgesics PRN -Medical management and optimization as per primary -Will Discuss with Dr. Heather Short PGY1
[2017-05-13] MEDS: Acetylcysteine 20% 3 ML NEB PO SCH (22:21)
[2017-05-13] MEDS: (Lantus) Insulin Glargine, Recombinant SC SCH (22:24)
[2017-05-14] MEDS: Piperacill/Tazo 2.25gm in Dex 2.25 GM/50 ML BAG IVPB SCH ×3 (03:25→19:00)
[2017-05-14] MEDS: Acetylcysteine 20% 3 ML NEB PO SCH ×2 (06:20→21:57)
--- NOTE | 2017-05-14 06:56 | HP ---
HISTORY OF PRESENT ILLNESS: Ms. Pizarro is a 67-year-old female with history of diabetic foot, history of diabetes, , hypertension, admitted to the hospital nonhealing diabetic foot in spite of antibiotics, local therapies and was admitted to the hospital. SOCIAL HISTORY: The patient does not smoke or drink. PHYSICAL EXAMINATION: GENERAL: The patient is awake, alert and oriented. VITAL SIGNS: Temperature 98 and pulse 90. HEENT: Within normal limits. NECK: Supple. CHEST: Symmetrical. HEART: Regular. ABDOMEN: Soft. EXTREMITIES: There is an ulcer in the foot present with exudate. Foot is warm, otherwise. ASSESSMENT AND PLAN: The patient with diabetic foot infection. The patient is on IV antibiotic. Infectious Disease and Vascular Surgery consult. Maite Denis MD
[2017-05-14 07:38] LABS: BASO % 0.4 % (0.0-2.0); EOS # 0.3 K/uL (0.0-0.7); EOS % 3.9 % (0.0-4.0); HEMATOCRIT 32.6 % (34.0-47.0); LYMPH # 0.8 K/uL (1.0-4.3); LYMPH % 12.2 % (20.0-40.0); MEAN CELL VOLUME 91.7 fL (81.0-99.0); MEAN CORPUSCULAR HEMOGLOBIN 28.9 pg (27.0-31.0); MEAN CORPUSCULAR HGB CONC 31.5 g/dL (33.0-37.0); MEAN PLATELET VOLUME 9.8 fL (7.2-11.7); MONO # 0.5 K/uL (0.0-0.8); MONO % 6.8 % (0.0-10.0); NRBC % 0.2 % (0.0-2.0); RED CELL DISTRIBUTION WIDTH 18.2 % (11.5-14.5); WHITE BLOOD COUNT 6.6 K/uL (4.8-10.8)
[2017-05-14 07:41] LABS: INR 2.1
[2017-05-14 07:46] LABS: POTASSIUM 4.9 mmol/L (3.6-5.2)
[2017-05-14 07:48] LABS: BILIRUBIN,TOTAL 0.9 mg/dL (0.2-1.3)
[2017-05-14 07:49] LABS: ALB/GLOB RATIO 1.2 (1.0-2.1); CALCIUM 8.6 mg/dl (8.6-10.4); TOTAL PROTEIN 7.2 g/dL (6.3-8.3)
[2017-05-14 08:09] LABS: VITAMIN D 25 OH TOTAL 20.8 NG/ML (30.0-100.0)
--- NOTE | 2017-05-14 08:54 | CP.PCM.PN ---
Subjective - Date & Time of Evaluation Date of Evaluation: 05/14/17 Time of Evaluation: 07:00 - Subjective Subjective: Vascular Surgery Note for Dr. Romero Patient seen and examined at bedside. No acute event overnight. Patient denies any pain this AM. She is tolerating diet and passing flatus. Patient has no complaints today. Dressings were changed this morning. Objective - Vital Signs/Intake and Output Vital Signs (last 24 hours): Temp Pulse Resp BP Pulse Ox 99.4 F 63 20 166/77 H 93 L 05/14/17 08:22 05/14/17 08:22 05/14/17 08:22 05/14/17 08:22 05/14/17 08:22 Intake and Output: 05/14/17 05/14/17 06:59 18:59 Intake Total 500 Balance 500 - Medications Medications: Current Medications Acetylcysteine (Acetylcysteine 20%) 6 ml PO Q12H [facility] Stop: 05/15/17 07:01 Last Admin: 05/13/17 22:21 Dose: 6 ml Calcium Acetate (Phoslo) 667 mg PO TID [facility] Last Admin: 05/13/17 17:53 Dose: 667 mg Clopidogrel Bisulfate (Plavix) 75 mg PO DAILY [facility] Epoetin Etienne (Procrit) 10,000 unit SC MWF [facility] Fluoxetine HCl (Prozac) 20 mg PO DAILY [facility] Furosemide (Lasix) 40 mg PO DAILY [facility] Piperacillin Sod/Tazobactam Sod (Zosyn 2.25 Gm Iv Premix) 2.25 gm in 50 mls @ 100 mls/hr IVPB Q8H [facility] Last Admin: 05/14/17 03:25 Dose: 100 mls/hr Vancomycin HCl 1,000 mg/ (Sodium Chloride) 100 mls @ 100 mls/hr IVPB MWF [facility] Insulin Aspart (Novolog Mix 70/30 (70/30 Units/Ml)) 0 units SC QID [facility] PRN Reason: Protocol Last Admin: 05/13/17 22:25 Dose: Not Given Insulin Glargine (Lantus) 10 unit SC HS [facility] Last Admin: 05/13/17 22:24 Dose: 10 unit Lactulose (Enulose) 20 gm PO HS [facility] Last Admin: 05/13/17 22:22 Dose: 20 gm Lisinopril (Zestril) 10 mg PO DAILY [facility] Last Admin: 05/13/17 11:58 Dose: Not Given Oxycodone/Acetaminophen (Percocet 5/325 Mg Tab) 1 tab PO Q4 PRN PRN Reason: Pain, Mild (1-3) Stop: 05/16/17 10:02 Pantoprazole Sodium (Protonix Ec Tab) 40 mg PO DAILY [facility] Pneumococcal Polyvalent Vaccine (Pneumovax 23 Vaccine) 0.5 ml IM .ONCE ONE Stop: 05/15/17 10:01 Rosuvastatin Calcium (Crestor) 10 mg PO HS [facility] Last Admin: 05/13/17 22:22 Dose: 10 mg Sucralfate (Carafate Tab) 1 gm PO BID [facility] Last Admin: 05/13/17 17:52 Dose: 1 gm Vitamin B Complex/Vit C/Folic Acid (Nephro-Naren) 1 tab PO DAILY [facility] - Labs Labs: 05/14/17 07:18 05/14/17 07:18 PT 24.0 SECONDS (9.7-12.2) H 05/14/17 07:18 INR 2.1 05/14/17 07:18 APTT 42 SECONDS (21-34) H 05/13/17 07:11 - Constitutional Appears: No Acute Distress - Head Exam Head Exam: ATRAUMATIC, NORMOCEPHALIC - Eye Exam Eye Exam: EOMI, Normal appearance Pupil Exam: PERRL - ENT Exam ENT Exam: Mucous Membranes Moist - Respiratory Exam Respiratory Exam: NORMAL BREATHING PATTERN - Cardiovascular Exam Cardiovascular Exam: REGULAR RHYTHM - GI/Abdominal Exam GI & Abdominal Exam: Soft. absent: Tenderness - Extremities Exam Extremities Exam: absent: Calf Tenderness Additional comments: Right heel ulcer about 3 x 3 cm with foul odor Left heel wound 2 mm in diameter dressings changed today DP/PT found via doppler bilaterally - Neurological Exam Neurological Exam: Alert, Awake, Oriented x3 - Psychiatric Exam Psychiatric exam: Normal Affect, Normal Mood - Skin Skin Exam: Dry, Warm Assessment and Plan - Assessment and Plan (Free Text) Plan: 67 F with right heel ulcer -Angiogram tomorrow morning -Continue Mucomyst -Analgesics PRN -Dressing changes daily -Medical management and optimization as per primary -Will Discuss with Dr. Heather Short PGY1
[2017-05-14] MEDS: (Novolog Mix 70/30) Insulin Aspart/Insulin Aspar 100 units/ml SC SCH ×4 (10:00→21:51)
[2017-05-14] MEDS: Pantoprazole 40 mg EC Tab PO SCH (11:35)
[2017-05-14] MEDS: Multivitamin Vitamin B Complex (Nephro-Vite) Tab PO SCH (11:36)
[2017-05-14] MEDS: Ergocalciferol 50,000 Intl Units Cap PO SCH (11:45)
--- NOTE | 2017-05-14 12:24 | CP.PCM.PN ---
Subjective - Date & Time of Evaluation Date of Evaluation: 05/14/17 Time of Evaluation: 07:00 - Subjective Subjective: painful right heel wound for unknown duration. Has had surgery on right foot 2014 - 5th ray resection with angioplasty Objective - Vital Signs/Intake and Output Vital Signs (last 24 hours): Temp Pulse Resp BP Pulse Ox 99.4 F 63 20 146/73 93 L 05/14/17 08:22 05/14/17 08:22 05/14/17 08:22 05/14/17 11:36 05/14/17 08:22 Intake and Output: 05/14/17 05/14/17 06:59 18:59 Intake Total 500 Balance 500 - Medications Medications: Current Medications Acetylcysteine (Acetylcysteine 20%) 6 ml PO Q12H [facility] Stop: 05/15/17 07:01 Last Admin: 05/13/17 22:21 Dose: 6 ml Calcium Acetate (Phoslo) 667 mg PO TID [facility] Last Admin: 05/14/17 11:35 Dose: 667 mg Clopidogrel Bisulfate (Plavix) 75 mg PO DAILY [facility] Last Admin: 05/14/17 11:37 Dose: 75 mg Epoetin Etienne (Procrit) 10,000 unit SC MWF [facility] Ergocalciferol (Drisdol 50,000 Intl Units Cap) 1 cap PO Q7D [facility] Last Admin: 05/14/17 11:45 Dose: 1 cap Fluoxetine HCl (Prozac) 20 mg PO DAILY [facility] Last Admin: 05/14/17 11:35 Dose: 20 mg Furosemide (Lasix) 40 mg PO DAILY [facility] Last Admin: 05/14/17 11:36 Dose: 40 mg Piperacillin Sod/Tazobactam Sod (Zosyn 2.25 Gm Iv Premix) 2.25 gm in 50 mls @ 100 mls/hr IVPB Q8H [facility] Last Admin: 05/14/17 11:59 Dose: 100 mls/hr Vancomycin HCl 1,000 mg/ (Sodium Chloride) 100 mls @ 100 mls/hr IVPB MWF [facility] Insulin Aspart (Novolog Mix 70/30 (70/30 Units/Ml)) 0 units SC QID [facility] PRN Reason: Protocol Last Admin: 05/14/17 10:00 Dose: 2 units Insulin Glargine (Lantus) 10 unit SC HS [facility] Last Admin: 05/13/17 22:24 Dose: 10 unit Lactulose (Enulose) 20 gm PO [facility] Last Admin: 05/13/17 22:22 Dose: 20 gm Lisinopril (Zestril) 10 mg PO DAILY [facility] Last Admin: 05/14/17 11:37 Dose: 10 mg Oxycodone/Acetaminophen (Percocet 5/325 Mg Tab) 1 tab PO Q4 PRN PRN Reason: Pain, Mild (1-3) Stop: 05/16/17 10:02 Pantoprazole Sodium (Protonix Ec Tab) 40 mg PO DAILY [facility] Last Admin: 05/14/17 11:35 Dose: 40 mg Pneumococcal Polyvalent Vaccine (Pneumovax 23 Vaccine) 0.5 ml IM .ONCE ONE Stop: 05/15/17 10:01 Rosuvastatin Calcium (Crestor) 10 mg PO [facility] Last Admin: 05/13/17 22:22 Dose: 10 mg Sucralfate (Carafate Tab) 1 gm PO BID [facility] Last Admin: 05/14/17 11:36 Dose: 1 gm Vitamin B Complex/Vit C/Folic Acid (Nephro-Naren) 1 tab PO DAILY [facility] Last Admin: 05/14/17 11:36 Dose: 1 tab - Labs Labs: 05/14/17 07:18 05/14/17 07:18 PT 24.0 SECONDS (9.7-12.2) H 05/14/17 07:18 INR 2.1 05/14/17 07:18 APTT 42 SECONDS (21-34) H 05/13/17 07:11 - Constitutional Appears: Non-toxic, Chronically Ill - Head Exam Head Exam: NORMOCEPHALIC - Eye Exam Eye Exam: PERRL - ENT Exam ENT Exam: Mucous Membranes Dry - Neck Exam Neck Exam: absent: Lymphadenopathy - Respiratory Exam Respiratory Exam: Decreased Breath Sounds - Cardiovascular Exam Cardiovascular Exam: REGULAR RHYTHM - GI/Abdominal Exam GI & Abdominal Exam: Distended, Soft Assessment and Plan (1) Acute on chronic renal failure Status: Acute (2) Dehydration Status: Acute (3) Diabetic infection of right foot Status: Acute (4) Anemia Status: Acute (5) Chronic heel ulcer Status: Acute
--- NOTE | 2017-05-14 14:15 | CP.PCM.PN ---
Subjective - Date & Time of Evaluation Date of Evaluation: 05/14/17 Time of Evaluation: 14:11 - Subjective Subjective: Medicine Progress Note- Dr Denis's service Patient seen and examined. Patient sitting in chair at bedside in no acute distress. Patient has no acute complaints and is tolerating her diet. She denies pain in feet. All other ROS negative. Objective - Vital Signs/Intake and Output Vital Signs (last 24 hours): Temp Pulse Resp BP Pulse Ox 99.4 F 63 20 146/73 95 05/14/17 08:22 05/14/17 13:15 05/14/17 08:22 05/14/17 11:36 05/14/17 13:15 Intake and Output: 05/14/17 05/14/17 06:59 18:59 Intake Total 500 Balance 500 - Medications Medications: Current Medications Acetylcysteine (Acetylcysteine 20%) 6 ml PO Q12H [facility] Stop: 05/15/17 07:01 Last Admin: 05/13/17 22:21 Dose: 6 ml Calcium Acetate (Phoslo) 667 mg PO TID [facility] Last Admin: 05/14/17 11:35 Dose: 667 mg Clopidogrel Bisulfate (Plavix) 75 mg PO DAILY [facility] Last Admin: 05/14/17 11:37 Dose: 75 mg Epoetin Etienne (Procrit) 10,000 unit SC MWF [facility] Ergocalciferol (Drisdol 50,000 Intl Units Cap) 1 cap PO Q7D [facility] Last Admin: 05/14/17 11:45 Dose: 1 cap Ferrous Gluconate (Fergon) 324 mg PO TID [facility] Fluoxetine HCl (Prozac) 20 mg PO DAILY [facility] Last Admin: 05/14/17 11:35 Dose: 20 mg Piperacillin Sod/Tazobactam Sod (Zosyn 2.25 Gm Iv Premix) 2.25 gm in 50 mls @ 100 mls/hr IVPB Q8H [facility] Last Admin: 05/14/17 11:59 Dose: 100 mls/hr Vancomycin HCl 1,000 mg/ (Sodium Chloride) 100 mls @ 100 mls/hr IVPB MWF [facility] Insulin Aspart (Novolog Mix 70/30 (70/30 Units/Ml)) 0 units SC QID [facility] PRN Reason: Protocol Last Admin: 05/14/17 10:00 Dose: 2 units Insulin Glargine (Lantus) 10 unit SC [facility] Last Admin: 05/13/17 22:24 Dose: 10 unit Lactulose (Enulose) 20 gm PO [facility] Last Admin: 05/13/17 22:22 Dose: 20 gm Lisinopril (Zestril) 10 mg PO DAILY [facility] Last Admin: 05/14/17 11:37 Dose: 10 mg Oxycodone/Acetaminophen (Percocet 5/325 Mg Tab) 1 tab PO Q4 PRN PRN Reason: Pain, Mild (1-3) Stop: 05/16/17 10:02 Pantoprazole Sodium (Protonix Ec Tab) 40 mg PO DAILY [facility] Last Admin: 05/14/17 11:35 Dose: 40 mg Pneumococcal Polyvalent Vaccine (Pneumovax 23 Vaccine) 0.5 ml IM .ONCE ONE Stop: 05/15/17 10:01 Rosuvastatin Calcium (Crestor) 10 mg PO [facility] Last Admin: 05/13/17 22:22 Dose: 10 mg Sucralfate (Carafate Tab) 1 gm PO BID [facility] Last Admin: 05/14/17 11:36 Dose: 1 gm Vitamin B Complex/Vit C/Folic Acid (Nephro-Naren) 1 tab PO DAILY [facility] Last Admin: 05/14/17 11:36 Dose: 1 tab - Labs Labs: 05/14/17 07:18 05/14/17 07:18 PT 24.0 SECONDS (9.7-12.2) H 05/14/17 07:18 INR 2.1 05/14/17 07:18 APTT 42 SECONDS (21-34) H 05/13/17 07:11 - Additional Findings Additional findings: - Constitutional Appears: No Acute Distress - Head Exam Head Exam: ATRAUMATIC, NORMOCEPHALIC - Eye Exam Eye Exam: EOMI, Normal appearance Pupil Exam: PERRL - ENT Exam ENT Exam: Mucous Membranes Moist - Respiratory Exam Respiratory Exam: NORMAL BREATHING PATTERN - Cardiovascular Exam Cardiovascular Exam: REGULAR RHYTHM - GI/Abdominal Exam GI & Abdominal Exam: Soft. absent: Tenderness - Extremities Exam Extremities Exam: absent: Calf Tenderness Additional comments: Bilateral feet dressing clean and dry, changed today Bilateral LE edema 2+ - Neurological Exam Neurological Exam: Alert, Awake, Oriented x3 - Psychiatric Exam Psychiatric exam: Normal Affect, Normal Mood - Skin Skin Exam: Dry, Warm Assessment and Plan - Assessment and Plan (Free Text) Assessment: 1. Right Diabetic Heel Ulcer Right foot X ray shows no evidence of osteomyelitis Cefepime and Vanco give fam ER ID consult - Dr. Nunez - Zosyn 2.25gm IV q8h (started on 05/13) and Vanco 1gm IV MWF (start on 05/15) Vascular Surgery consult - Dr. Romero - f/u recs Wound Care Nurse consult - f/u recs Percocet 5/325mg PO Q4H PRN pain f/u wound culture 2. Pedal Edema and PVD Stopped Norvasc Starting Lisinopril 10mg PO daily Lasix 40mg PO daily Elevated legs prn 3. [facility] - Dr. Jett - help appreciated Phoslo 667mg PO TID 4. DMII HgbA1C 10.3 Lantus 10U SC HS Novolog 70/30 ISS Accuchecks 5. Anemia Likely secondary to chronic kidney disease Iron 30, TIBC 373, % sat 8, ferritin 42 Continue [facility] Monitor CBC daily 6. H/O CVA Plavix 75mg PO daily PT evaluation 7. H/O PVD with stents Plavix 75mg PO daily Warfarin 5mg PO HS INR 2.1 F/U INR daily 8. H/O CHF Lasix 40mg PO daily No B-kam secondary to bradycardia Starting Lisinopril 10mg PO daily 9. H/O Hyperlipidemia Converting home med of lipitor 20mg PO daily to formulary 10. Depression Prozac 20mg PO daily Denies suicidal/homicidal ideations at this time 11. Prophylaxis Protonix 40mg PO daily Sucralfate Warfarin Plavix All medical management per Dr. Denis
--- NOTE | 2017-05-14 14:25 | US ---
Renal ultrasound History: Chronic kidney disease. Comparison: None available. Technique: Real-time sonography was performed through the kidneys. Findings: Right kidney: 10.2 x 4.4 x 5.6 centimeters. Increased echogenicity of the renal parenchymal cortex suggestive for medical renal disease. No calculi or hydronephrosis. Hypoechoic cyst within the right kidney measuring 2.7 x 2.8 x 2.8 centimeters. Left Kidney: 10.0 x 5.3 x 5.8 centimeters. Increased echogenicity of the renal parenchymal cortex suggestive for medical renal disease. No calculi or hydronephrosis. Urinary bladder not well distended, limiting evaluation. Free fluid within the lower pelvis. Incidentally noted is a 1.2 centimeter calculus at the neck of the gallbladder with associated gallbladder wall thickening measuring up to 7 millimeters and fluid adjacent to the gallbladder. Associated abdominal ascites. If there is concern for cholecystitis, consider further evaluation with a gallbladder ultrasound and or nuclear medicine study. Visualized aorta is grossly preserved. Distal aorta is not well visualized. Impression: Increased echogenicity of the bilateral renal parenchymal cortices suggestive for medical renal disease. 2.8 centimeter right renal cyst. Free fluid within the lower pelvis and abdomen. Limited evaluation of the urinary bladder. Cholelithiasis with associated thickened gallbladder wall and free fluid adjacent to the gallbladder. If there is concern for cholecystitis, consider further evaluation with gallbladder ultrasound and or nuclear medicine study. Clinical correlation.
--- NOTE | 2017-05-14 14:58 | CP.PCM.PN ---
Subjective - Date & Time of Evaluation Date of Evaluation: 05/14/17 Time of Evaluation: 14:56 - Subjective Subjective: Follow up Nephrology Consultation: Assessment: Stable Non-healing ulcer on heel with celluliits Diabetic chronic Kidney Disease (E11.22) Hypertensive Chronic Kidney Disease (I12.9) Chronic Kidney Disease (N18.4) Stage 4 with ? mg proteinuria (R80.9) possibly due to DM and or HTN Anemia (D64.9), Hyperphosphatemia (E83.39), HTN (I12.9) CHF, obesity, PVD, depression Plan No acute need for renal replacement therapy at this time. Hypertension control with meds as ordered. Patient on ACEI/ARB as lisinopril Monitor Input/Output, daily weights and renal function with basic metabolic panel planned for angiogram in AM, pt will be at increased risk of contrast nephropathy. IVF not indicated due to CHF and current edema (but could hold lasix for now) and continue with statin, give mucormyst 1200 mg bid x 48 hrs. continue with her home dose epogen (hold if Hb>11) and phoslo continue with vit D and oral iron supplementation ID and vascular surgery following Check urine analysis, spot protein/creatinine and albumin/creatinine ratio, Check serum protein electrophoresis with immunofixation Dose meds/antibiotics for reduced GFR. Avoid fleets enema/magnesium based laxatives. Avoid nephrotoxins/NSAIDs/ iodinated contrast (unless needed emergently) Glycemic control Further work up/management as per primary team Thanks for allowing me to participate in care of your patient. Will follow patient with you. Please call if any Qs Dr Juan Torres Office: [phone] Chief Complaint; heel ulcer HPI: Pt is a 67 y/o F with hx of diabetes Mellitus hypertension, CHF, chronic anemia, hyperphos, DVT on coumadin, drpression, obesity, dementia, CVA, CKD ? 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 staff helped in creole interpretation. ROS: She Denies chest pain, palpitation, shortness of breath Physical Examination: General Appearance: Comfortable, in no acute respiratory distress, co-operative . obese Vitals reviewed and noted as below Lungs: Normal respiratory rate/effort. Breath sounds bilateral equal and clear Heart: Normal rate. s1s2 normal. No rub or gallop. Extremities: 1-2+ edema. No varicose veins. has chronic venous stasis changes. both feets in dressings. Neurological: Patient is alert, awake and not oriented to person, place or time. No focal deficit. Strength bilateral appropriate and equal Skin: Warm and dry. Normal turgor. No rash. Palpitation: Normal elasticity for age Abdomen: Abdomen is soft. Bowel sounds +. There is no abdominal tenderness, no guarding/rigidity no organomegaly. she is obese, flank and lower abdomen fullness noted. Psych: lack insight MSK: no joint tenderness or swelling. Digits and nails normal, no deformity : kidney or bladder not palpable Labs/imaging/EKG reviewed. Past medical history, past surgical history, family history, social history, allergy reviewed and noted as below Family hx: no hx of CKD. Rest non-contributory Objective - Vital Signs/Intake and Output Vital Signs (last 24 hours): Temp Pulse Resp BP Pulse Ox 99.4 F 63 20 146/73 95 05/14/17 08:22 05/14/17 13:15 05/14/17 08:22 05/14/17 11:36 05/14/17 13:15 Intake and Output: 05/14/17 05/14/17 06:59 18:59 Intake Total 500 Balance 500 - Medications Medications: Current Medications Acetylcysteine (Acetylcysteine 20%) 6 ml PO Q12H [facility] Stop: 05/15/17 07:01 Last Admin: 05/13/17 22:21 Dose: 6 ml Calcium Acetate (Phoslo) 667 mg PO TID [facility] Last Admin: 05/14/17 11:35 Dose: 667 mg Clopidogrel Bisulfate (Plavix) 75 mg PO DAILY [facility] Last Admin: 05/14/17 11:37 Dose: 75 mg Epoetin Etienne (Procrit) 10,000 unit SC MWF [facility] Ergocalciferol (Drisdol 50,000 Intl Units Cap) 1 cap PO Q7D [facility] Last Admin: 05/14/17 11:45 Dose: 1 cap Ferrous Gluconate (Fergon) 324 mg PO TID [facility] Fluoxetine HCl (Prozac) 20 mg PO DAILY [facility] Last Admin: 05/14/17 11:35 Dose: 20 mg Piperacillin Sod/Tazobactam Sod (Zosyn 2.25 Gm Iv Premix) 2.25 gm in 50 mls @ 100 mls/hr IVPB Q8H [facility] Last Admin: 05/14/17 11:59 Dose: 100 mls/hr Vancomycin HCl 1,000 mg/ (Sodium Chloride) 100 mls @ 100 mls/hr IVPB MWF [facility] Insulin Aspart (Novolog Mix 70/30 (70/30 Units/Ml)) 0 units SC QID [facility] PRN Reason: Protocol Last Admin: 05/14/17 10:00 Dose: 2 units Insulin Glargine (Lantus) 10 unit SC [facility] Last Admin: 05/13/17 22:24 Dose: 10 unit Lactulose (Enulose) 20 gm PO HS [facility] Last Admin: 05/13/17 22:22 Dose: 20 gm Lisinopril (Zestril) 10 mg PO DAILY [facility] Last Admin: 05/14/17 11:37 Dose: 10 mg Oxycodone/Acetaminophen (Percocet 5/325 Mg Tab) 1 tab PO Q4 PRN PRN Reason: Pain, Mild (1-3) Stop: 05/16/17 10:02 Pantoprazole Sodium (Protonix Ec Tab) 40 mg PO DAILY [facility] Last Admin: 05/14/17 11:35 Dose: 40 mg Pneumococcal Polyvalent Vaccine (Pneumovax 23 Vaccine) 0.5 ml IM .ONCE ONE Stop: 05/15/17 10:01 Rosuvastatin Calcium (Crestor) 10 mg PO [facility] Last Admin: 05/13/17 22:22 Dose: 10 mg Sucralfate (Carafate Tab) 1 gm PO BID [facility] Last Admin: 05/14/17 11:36 Dose: 1 gm Vitamin B Complex/Vit C/Folic Acid (Nephro-Naren) 1 tab PO DAILY [facility] Last Admin: 05/14/17 11:36 Dose: 1 tab Warfarin Sodium (Coumadin) 5 mg PO 1800 [facility] Stop: 05/14/17 18:01 - Labs Labs: 05/14/17 07:18 05/14/17 07:18 PT 24.0 SECONDS (9.7-12.2) H 05/14/17 07:18 INR 2.1 05/14/17 07:18 APTT 42 SECONDS (21-34) H 05/13/17 07:11
--- NOTE | 2017-05-14 19:42 | PCM.ANES ---
Addendum Addendum: Pt is a 67 yo female ho dm, htn, chf , acute on chronic renal failure. Please document medical optimization prior to planned procedure. 05/14/17 19:40
--- NOTE | 2017-05-14 21:08 | CARD ---
APPROVED REPORT EKG Measurement Heart [id number] <Conclusion> Sinus bradycardia with sinus arrhythmia with occasional premature ventricular complexes Left axis deviation Right bundle branch block Abnormal ECG
[2017-05-14] MEDS: (Lantus) Insulin Glargine, Recombinant SC SCH (21:52)
[2017-05-14 22:55] LABS: CREATININE, RANDOM URINE 47.3 mg/dL
[2017-05-14 23:07] LABS: RBC URINE 1 /hpf (0-3); URINE BILIRUBIN NEGATIVE (NEGATIVE); URINE CALCIUM OXALATE CRYSTALS RARE /hpf (<OCC); URINE COLOR Yellow (YELLOW); URINE GLUCOSE (UA) NORMAL (Normal); URINE HYALINE CAST 0-2 /lpf (0-2); URINE KETONE NEGATIVE (NEGATIVE); URINE LEUKOCYTE ESTERASE NEG Leu/uL (Negative); URINE PROTEIN NEGATIVE (NEGATIVE); URINE UROBILINOGEN NORMAL mg/dL (0.2-1.0); WBC URINE 1 /hpf (0-5)
[2017-05-14 23:08] LABS: URINE BLOOD NEGATIVE (NEGATIVE)
[2017-05-15] MEDS: Piperacill/Tazo 2.25gm in Dex 2.25 GM/50 ML BAG IVPB SCH ×3 (02:30→18:01)
[2017-05-15] MEDS: Acetylcysteine 20% 3 ML NEB PO SCH (06:15)
[2017-05-15 06:55] LABS: BASO % 0.5 % (0.0-2.0); EOS # 0.4 K/uL (0.0-0.7); HEMATOCRIT 31.1 % (34.0-47.0); LYMPH % 18.3 % (20.0-40.0); MEAN CORPUSCULAR HEMOGLOBIN 29.1 pg (27.0-31.0); MEAN CORPUSCULAR HGB CONC 31.6 g/dL (33.0-37.0); MEAN PLATELET VOLUME 9.5 fL (7.2-11.7); MONO # 0.6 K/uL (0.0-0.8); MONO % 11.6 % (0.0-10.0); NRBC % 0.1 % (0.0-2.0); RED CELL DISTRIBUTION WIDTH 18.1 % (11.5-14.5); WHITE BLOOD COUNT 5.3 K/uL (4.8-10.8)
[2017-05-15 07:18] LABS: POTASSIUM 4.9 mmol/L (3.6-5.2)
[2017-05-15 07:20] LABS: BILIRUBIN,TOTAL 0.8 mg/dL (0.2-1.3)
[2017-05-15 07:21] LABS: ALB/GLOB RATIO 1.1 (1.0-2.1); TOTAL PROTEIN 6.3 g/dL (6.3-8.3)
[2017-05-15 07:22] LABS: CALCIUM 8.5 mg/dl (8.6-10.4)
[2017-05-15] MEDS: Epoetin Alfa 10,000 unit/ml Dialysis SC SCH (08:35)
[2017-05-15] MEDS: Multivitamin Vitamin B Complex (Nephro-Vite) Tab PO SCH (09:12)
[2017-05-15] MEDS: (Novolog Mix 70/30) Insulin Aspart/Insulin Aspar 100 units/ml SC SCH ×4 (09:12→21:38)
[2017-05-15] MEDS: Pantoprazole 40 mg EC Tab PO SCH (09:13)
[2017-05-15 09:51] LABS: TOTAL PROTEIN, SERUM 7.3 g/dL (6.1-8.1)
[2017-05-15] MEDS ORDERED: Pneumococcal 23-Valent Vaccine IM ONE (10:00)
[2017-05-15] MEDS ORDERED: Influenza Vaccine 60 mcg/0.5 mL SYR (4YR UP) IM ONE (10:00)
--- NOTE | 2017-05-15 11:19 | CP.PCM.PN ---
Subjective - Date & Time of Evaluation Date of Evaluation: 05/15/17 Time of Evaluation: 11:18 - Subjective Subjective: Follow up Nephrology Consultation: Assessment: Stable Non-healing ulcer on heel with celluliits Diabetic chronic Kidney Disease (E11.22) Hypertensive Chronic Kidney Disease (I12.9) Chronic Kidney Disease (N18.4) Stage 4 with ? mg proteinuria (R80.9) possibly due to DM and or HTN Anemia (D64.9), Hyperphosphatemia (E83.39), HTN (I12.9) CHF, obesity, PVD, depression Plan No acute need for renal replacement therapy at this time. Hypertension control with meds as ordered. Patient on ACEI/ARB as lisinopril. add low dose coreg. will try to increase lisinopril once creat stable after angiogram. Monitor Input/Output, daily weights and renal function with basic metabolic panel planned for angiogram in AM, pt will be at increased risk of contrast nephropathy. IVF not indicated due to CHF and current edema (but could hold lasix for now) and continue with statin, given mucormyst 1200 mg bid x 48 hrs. continue with her home dose epogen (hold if Hb>11) and phoslo continue with vit D and oral iron supplementation ID and vascular surgery following Check serum protein electrophoresis with immunofixation Dose meds/antibiotics for reduced GFR. Avoid fleets enema/magnesium based laxatives. Avoid nephrotoxins/NSAIDs/ iodinated contrast (unless needed emergently) Glycemic control Further work up/management as per primary team Thanks for allowing me to participate in care of your patient. Will follow patient with you. Please call if any Qs Dr Juan Torres Office: [phone] Chief Complaint; heel ulcer HPI: Pt is a 67 y/o F with hx of diabetes Mellitus hypertension, CHF, chronic anemia, hyperphos, DVT on coumadin, drpression, obesity, dementia, CVA, CKD ? stage and a [place] [facility] resident [facility] presented with complaints of non healing ulcer Rt heel. staff helped in creole interpretation. ROS: She Denies chest pain, palpitation, shortness of breath Physical Examination: General Appearance: Comfortable, in no acute respiratory distress, co-operative . obese Vitals reviewed and noted as below Lungs: Normal respiratory rate/effort. Breath sounds bilateral equal and clear Heart: Normal rate. s1s2 normal. No rub or gallop. Extremities: 1-2+ edema. No varicose veins. has chronic venous stasis changes. both feets in dressings. Neurological: Patient is alert, awake and not oriented to person, place or time. No focal deficit. Strength bilateral appropriate and equal Skin: Warm and dry. Normal turgor. No rash. Palpitation: Normal elasticity for age Abdomen: Abdomen is soft. Bowel sounds +. There is no abdominal tenderness, no guarding/rigidity no organomegaly. she is obese, flank and lower abdomen fullness noted. Psych: lack insight MSK: no joint tenderness or swelling. Digits and nails normal, no deformity : kidney or bladder not palpable Labs/imaging/EKG reviewed. Past medical history, past surgical history, family history, social history, allergy reviewed and noted as below Family hx: no hx of CKD. Rest non-contributory Objective - Vital Signs/Intake and Output Vital Signs (last 24 hours): Temp Pulse Resp BP Pulse Ox 97.9 F 63 20 127/69 96 05/15/17 08:08 05/15/17 08:08 05/15/17 08:08 05/15/17 08:08 05/15/17 08:08 Intake and Output: 05/15/17 05/15/17 06:59 18:59 Intake Total 150 Balance 150 - Medications Medications: Current Medications Calcium Acetate (Phoslo) 667 mg PO TID [facility] Last Admin: 05/15/17 09:12 Dose: Not Given Carvedilol (Coreg) 3.125 mg PO BID [facility] Clopidogrel Bisulfate (Plavix) 75 mg PO DAILY [facility] Last Admin: 05/15/17 09:13 Dose: Not Given Epoetin Etienne (Procrit) 10,000 unit SC MWF [facility] Last Admin: 05/15/17 08:35 Dose: 10,000 unit Ergocalciferol (Drisdol 50,000 Intl Units Cap) 1 cap PO Q7D [facility] Last Admin: 05/14/17 11:45 Dose: 1 cap Ferrous Gluconate (Fergon) 324 mg PO TID [facility] Last Admin: 05/15/17 09:12 Dose: Not Given Fluoxetine HCl (Prozac) 20 mg PO DAILY [facility] Last Admin: 05/15/17 09:13 Dose: Not Given Piperacillin Sod/Tazobactam Sod (Zosyn 2.25 Gm Iv Premix) 2.25 gm in 50 mls @ 100 mls/hr IVPB Q8H [facility] Last Admin: 05/15/17 02:30 Dose: 100 mls/hr Vancomycin HCl 1,000 mg/ (Sodium Chloride) 250 mls @ 166.667 mls/hr IVPB MWF [facility] Last Admin: 05/15/17 08:29 Dose: 166.667 mls/hr Insulin Aspart (Novolog Mix 70/30 (70/30 Units/Ml)) 0 units SC QID [facility] PRN Reason: Protocol Last Admin: 05/15/17 09:12 Dose: Not Given Insulin Glargine (Lantus) 10 unit SC [facility] Last Admin: 05/14/17 21:52 Dose: 10 unit Lactulose (Enulose) 20 gm PO HS [facility] Last Admin: 05/14/17 21:49 Dose: 20 gm Lisinopril (Zestril) 10 mg PO DAILY [facility] Last Admin: 05/15/17 09:13 Dose: Not Given Oxycodone/Acetaminophen (Percocet 5/325 Mg Tab) 1 tab PO Q4 PRN PRN Reason: Pain, Mild (1-3) Stop: 05/16/17 10:02 Pantoprazole Sodium (Protonix Ec Tab) 40 mg PO DAILY [facility] Last Admin: 05/15/17 09:13 Dose: Not Given Rosuvastatin Calcium (Crestor) 10 mg PO [facility] Last Admin: 05/14/17 21:49 Dose: 10 mg Sucralfate (Carafate Tab) 1 gm PO BID [facility] Last Admin: 05/15/17 09:12 Dose: Not Given Vitamin B Complex/Vit C/Folic Acid (Nephro-Naren) 1 tab PO DAILY [facility] Last Admin: 05/15/17 09:12 Dose: Not Given - Labs Labs: 05/15/17 06:48 05/15/17 06:48 PT 24.0 SECONDS (9.7-12.2) H 05/14/17 07:18 INR 2.1 05/14/17 07:18 APTT 42 SECONDS (21-34) H 05/13/17 07:11
[2017-05-15 11:58] LABS: INR 2.1
--- NOTE | 2017-05-15 11:58 | CP.PCM.PN ---
Subjective - Date & Time of Evaluation Date of Evaluation: 05/15/17 Time of Evaluation: 11:54 - Subjective Subjective: Medicine Progress Note- Dr Denis's service Patient seen and examined. Patient has no acute complaints today. Patient denies fever, chills, chest pain, leg pain, shortness of breath and cough. Objective - Vital Signs/Intake and Output Vital Signs (last 24 hours): Temp Pulse Resp BP Pulse Ox 97.9 F 63 20 127/69 96 05/15/17 08:08 05/15/17 08:08 05/15/17 08:08 05/15/17 08:08 05/15/17 08:08 Intake and Output: 05/15/17 05/15/17 06:59 18:59 Intake Total 150 Balance 150 - Medications Medications: Current Medications Calcium Acetate (Phoslo) 667 mg PO TID [facility] Last Admin: 05/15/17 09:12 Dose: Not Given Carvedilol (Coreg) 3.125 mg PO BID [facility] Last Admin: 05/15/17 11:49 Dose: 3.125 mg Clopidogrel Bisulfate (Plavix) 75 mg PO DAILY [facility] Last Admin: 05/15/17 09:13 Dose: Not Given Epoetin Etienne (Procrit) 10,000 unit SC MWF [facility] Last Admin: 05/15/17 08:35 Dose: 10,000 unit Ergocalciferol (Drisdol 50,000 Intl Units Cap) 1 cap PO Q7D [facility] Last Admin: 05/14/17 11:45 Dose: 1 cap Ferrous Gluconate (Fergon) 324 mg PO TID [facility] Last Admin: 05/15/17 09:12 Dose: Not Given Fluoxetine HCl (Prozac) 20 mg PO DAILY [facility] Last Admin: 05/15/17 09:13 Dose: Not Given Piperacillin Sod/Tazobactam Sod (Zosyn 2.25 Gm Iv Premix) 2.25 gm in 50 mls @ 100 mls/hr IVPB Q8H [facility] Last Admin: 05/15/17 02:30 Dose: 100 mls/hr Vancomycin HCl 1,000 mg/ (Sodium Chloride) 250 mls @ 166.667 mls/hr IVPB MWF [facility] Last Admin: 05/15/17 08:29 Dose: 166.667 mls/hr Insulin Aspart (Novolog Mix 70/30 (70/30 Units/Ml)) 0 units SC QID [facility] PRN Reason: Protocol Last Admin: 05/15/17 09:12 Dose: Not Given Insulin Glargine (Lantus) 10 unit SC [facility] Last Admin: 05/14/17 21:52 Dose: 10 unit Lactulose (Enulose) 20 gm PO [facility] Last Admin: 05/14/17 21:49 Dose: 20 gm Lisinopril (Zestril) 10 mg PO DAILY [facility] Last Admin: 05/15/17 09:13 Dose: Not Given Oxycodone/Acetaminophen (Percocet 5/325 Mg Tab) 1 tab PO Q4 PRN PRN Reason: Pain, Mild (1-3) Stop: 05/16/17 10:02 Pantoprazole Sodium (Protonix Ec Tab) 40 mg PO DAILY [facility] Last Admin: 05/15/17 09:13 Dose: Not Given Rosuvastatin Calcium (Crestor) 10 mg PO [facility] Last Admin: 05/14/17 21:49 Dose: 10 mg Sucralfate (Carafate Tab) 1 gm PO BID [facility] Last Admin: 05/15/17 09:12 Dose: Not Given Vitamin B Complex/Vit C/Folic Acid (Nephro-Naren) 1 tab PO DAILY [facility] Last Admin: 05/15/17 09:12 Dose: Not Given - Labs Labs: 05/15/17 06:48 05/15/17 06:48 PT 24.0 SECONDS (9.7-12.2) H 05/14/17 07:18 INR 2.1 05/14/17 07:18 APTT 42 SECONDS (21-34) H 05/13/17 07:11 - Additional Findings Additional findings: - Constitutional Appears: No Acute Distress - Head Exam Head Exam: ATRAUMATIC, NORMOCEPHALIC - Eye Exam Eye Exam: EOMI, Normal appearance Pupil Exam: PERRL - ENT Exam ENT Exam: Mucous Membranes Moist - Respiratory Exam Respiratory Exam: NORMAL BREATHING PATTERN - Cardiovascular Exam Cardiovascular Exam: REGULAR RHYTHM - GI/Abdominal Exam GI & Abdominal Exam: Soft. absent: Tenderness - Extremities Exam Extremities Exam: absent: Calf Tenderness Additional comments: Bilateral feet dressing clean and dry, changed today Bilateral LE edema 2+ - Neurological Exam Neurological Exam: Alert, Awake, Oriented x3 - Psychiatric Exam Psychiatric exam: Normal Affect, Normal Mood - Skin Skin Exam: Dry, Warm Assessment and Plan - Assessment and Plan (Free Text) Assessment: 1. Right Diabetic Heel Ulcer Right foot X ray shows no evidence of osteomyelitis Cefepime and Vanco given in ER ID consult - Dr. Nunez - Zosyn 2.25gm IV q8h (started on 05/13) and Vanco 1gm IV MWF (start on 05/15) Vascular Surgery consult - Dr. Romero - f/u recs Wound Care Nurse consult - f/u recs Percocet 5/325mg PO Q4H PRN pain 05/13 right ankle wound culture POSITIVE for proteus and staph aureus Patient is planned for angiogram today, but due to extensive medical problems will wait from clearance from regional training manager Dr Ledesma. Could not obtain previous ECHO. 2. Pedal Edema and PVD Stopped Norvasc Lisinopril 10mg PO daily Lasix 40mg PO daily Elevated legs prn 3. HTN BP elevated Lisinopril 10mg PO daily Lasix 40mg PO daily Low dose coreg 3.125mg PO BID (monitor for bradycardia) Monitor vitals q4h 4. Acute on Chronic Kidney Disease Procrit [facility] Nephrology consult - Dr. Torres - help appreciated Phoslo 667mg PO TID Avoid nephrotoxins/NSAIDs/ iodinated contrast (unless needed emergently) urine studies ordered 5. DMII HgbA1C 10.3 Lantus 10U SC HS Novolog 70/30 ISS Accuchecks 6. Anemia Likely secondary to chronic kidney disease Iron 30, TIBC 373, % sat 8, ferritin 42 Continue [facility] Monitor CBC daily 7. H/O CVA Plavix 75mg PO daily PT evaluation- recommend TROY upon discharge Fall risk protocol 8. H/O PVD with stents Plavix 75mg PO daily Warfarin 5mg PO HS F/U INR daily 9. H/O CHF Lasix 40mg PO daily Low dose coreg 3.125mg PO BID (monitor for bradycardia) Lisinopril 10mg PO daily 10. H/O Hyperlipidemia Converting home med of lipitor 20mg PO daily to formulary 11. Depression Prozac 20mg PO daily Denies suicidal/homicidal ideations at this time 12. Vitamin D deficiency Vit D 20.8 Start Ergocalciferol 50,000u qweekly 13. Prophylaxis Protonix 40mg PO daily Sucralfate Warfarin Plavix All medical management per Dr. Denis
[2017-05-15] MEDS ORDERED: Propofol 10 mg/ml Inj (20 ML) ONE (13:10)
[2017-05-15] MEDS ORDERED: Midazolam 2 MG/2 ML VIAL ONE (13:11)
[2017-05-15] MEDS ORDERED: Phytonadione 1 mg/0.5 ml Inj (Neonatal) IM ONE (13:48)
--- NOTE | 2017-05-15 14:02 | CP.PCM.PN ---
Subjective - Date & Time of Evaluation Date of Evaluation: 05/15/17 Time of Evaluation: 14:00 - Subjective Subjective: Surgery: Dr. Romero Elevated INR, will postpone Angio Vit K today and FFP starting 05/16 at 4:00AM Angio tomorrow if INR WNL discusses w. attending Navid PGY3 Objective - Vital Signs/Intake and Output Vital Signs (last 24 hours): Temp Pulse Resp BP Pulse Ox 97.9 F 63 20 127/69 96 05/15/17 08:08 05/15/17 08:08 05/15/17 08:08 05/15/17 08:08 05/15/17 08:08 Intake and Output: 05/15/17 05/15/17 06:59 18:59 Intake Total 150 Balance 150 - Medications Medications: Current Medications Calcium Acetate (Phoslo) 667 mg PO TID [facility] Last Admin: 05/15/17 13:24 Dose: Not Given Carvedilol (Coreg) 3.125 mg PO BID [facility] Last Admin: 05/15/17 11:49 Dose: 3.125 mg Clopidogrel Bisulfate (Plavix) 75 mg PO DAILY [facility] Last Admin: 05/15/17 09:13 Dose: Not Given Epoetin Etienne (Procrit) 10,000 unit SC MWF [facility] Last Admin: 05/15/17 08:35 Dose: 10,000 unit Ergocalciferol (Drisdol 50,000 Intl Units Cap) 1 cap PO Q7D [facility] Last Admin: 05/14/17 11:45 Dose: 1 cap Ferrous Gluconate (Fergon) 324 mg PO TID [facility] Last Admin: 05/15/17 13:24 Dose: Not Given Fluoxetine HCl (Prozac) 20 mg PO DAILY [facility] Last Admin: 05/15/17 09:13 Dose: Not Given Piperacillin Sod/Tazobactam Sod (Zosyn 2.25 Gm Iv Premix) 2.25 gm in 50 mls @ 100 mls/hr IVPB Q8H [facility] Last Admin: 05/15/17 12:00 Dose: 100 mls/hr Vancomycin HCl 1,000 mg/ (Sodium Chloride) 250 mls @ 166.667 mls/hr IVPB MWF [facility] Last Admin: 05/15/17 08:29 Dose: 166.667 mls/hr Insulin Aspart (Novolog Mix 70/30 (70/30 Units/Ml)) 0 units SC QID [facility] PRN Reason: Protocol Last Admin: 05/15/17 13:24 Dose: Not Given Insulin Glargine (Lantus) 10 unit SC [facility] Last Admin: 05/14/17 21:52 Dose: 10 unit Lactulose (Enulose) 20 gm PO HS [facility] Last Admin: 05/14/17 21:49 Dose: 20 gm Lisinopril (Zestril) 10 mg PO DAILY [facility] Last Admin: 05/15/17 09:13 Dose: Not Given Oxycodone/Acetaminophen (Percocet 5/325 Mg Tab) 1 tab PO Q4 PRN PRN Reason: Pain, Mild (1-3) Stop: 05/16/17 10:02 Pantoprazole Sodium (Protonix Ec Tab) 40 mg PO DAILY [facility] Last Admin: 05/15/17 09:13 Dose: Not Given Rosuvastatin Calcium (Crestor) 10 mg PO [facility] Last Admin: 05/14/17 21:49 Dose: 10 mg Sucralfate (Carafate Tab) 1 gm PO BID [facility] Last Admin: 05/15/17 09:12 Dose: Not Given Vitamin B Complex/Vit C/Folic Acid (Nephro-Naren) 1 tab PO DAILY [facility] Last Admin: 05/15/17 09:12 Dose: Not Given - Labs Labs: 05/15/17 06:48 05/15/17 06:48 PT 24.3 SECONDS (9.7-12.2) H 05/15/17 11:39 INR 2.1 05/15/17 11:39 APTT 40 SECONDS (21-34) H 05/15/17 11:39
--- NOTE | 2017-05-15 16:05 | CP.PCM.PN ---
Subjective - Date & Time of Evaluation Date of Evaluation: 05/15/17 Time of Evaluation: 05:00 - Subjective Subjective: awake alert NAD Objective - Vital Signs/Intake and Output Vital Signs (last 24 hours): Temp Pulse Resp BP Pulse Ox 97.7 F 65 20 187/83 H 95 05/15/17 14:26 05/15/17 14:26 05/15/17 14:26 05/15/17 14:26 05/15/17 14:26 Intake and Output: 05/15/17 05/15/17 06:59 18:59 Intake Total 150 Balance 150 - Medications Medications: Current Medications Calcium Acetate (Phoslo) 667 mg PO TID [facility] Last Admin: 05/15/17 13:24 Dose: Not Given Carvedilol (Coreg) 3.125 mg PO BID [facility] Last Admin: 05/15/17 11:49 Dose: 3.125 mg Clopidogrel Bisulfate (Plavix) 75 mg PO DAILY [facility] Last Admin: 05/15/17 09:13 Dose: Not Given [facility]poetin Etienne (Procrit) [facility] Last Admin: 05/15/17 08:35 Dose: 10,000 unit Ergocalciferol (Drisdol 50,000 Intl Units Cap) 1 cap PO Q7D [facility] Last Admin: 05/14/17 11:45 Dose: 1 cap Ferrous Gluconate (Fergon) 324 mg PO TID [facility] Last Admin: 05/15/17 13:24 Dose: Not Given Fluoxetine HCl (Prozac) 20 mg PO DAILY [facility] Last Admin: 05/15/17 09:13 Dose: Not Given Piperacillin Sod/Tazobactam Sod (Zosyn 2.25 Gm Iv Premix) 2.25 gm in 50 mls @ 100 mls/hr IVPB Q8H [facility] Last Admin: 05/15/17 12:00 Dose: 100 mls/hr Vancomycin HCl 1,000 mg/ (Sodium Chloride) 250 mls @ 166.667 mls/hr IVPB MWF [facility] Last Admin: 05/15/17 08:29 Dose: 166.667 mls/hr Insulin Aspart (Novolog Mix 70/30 (70/30 Units/Ml)) 0 units SC QID [facility] PRN Reason: Protocol Last Admin: 05/15/17 13:24 Dose: Not Given Insulin Glargine (Lantus) 10 unit SC [facility] Last Admin: 05/14/17 21:52 Dose: 10 unit Lactulose (Enulose) 20 gm PO HS [facility] Last Admin: 05/14/17 21:49 Dose: 20 gm Lisinopril (Zestril) 10 mg PO DAILY [facility] Last Admin: 05/15/17 09:13 Dose: Not Given Oxycodone/Acetaminophen (Percocet 5/325 Mg Tab) 1 tab PO Q4 PRN PRN Reason: Pain, Mild (1-3) Stop: 05/16/17 10:02 Pantoprazole Sodium (Protonix Ec Tab) 40 mg PO DAILY [facility] Last Admin: 05/15/17 09:13 Dose: Not Given Rosuvastatin Calcium (Crestor) 10 mg PO [facility] Last Admin: 05/14/17 21:49 Dose: 10 mg Sucralfate (Carafate Tab) 1 gm PO BID [facility] Last Admin: 05/15/17 09:12 Dose: Not Given Vitamin B Complex/Vit C/Folic Acid (Nephro-Naren) 1 tab PO DAILY [facility] Last Admin: 05/15/17 09:12 Dose: Not Given - Labs Labs: 05/15/17 06:48 05/15/17 06:48 PT 24.3 SECONDS (9.7-12.2) H 05/15/17 11:39 INR 2.1 05/15/17 11:39 APTT 40 SECONDS (21-34) H 05/15/17 11:39 - Constitutional Appears: Non-toxic, Chronically Ill - Head Exam Head Exam: NORMOCEPHALIC - Eye Exam Eye Exam: PERRL - ENT Exam ENT Exam: Mucous Membranes Dry - Neck Exam Neck Exam: absent: Lymphadenopathy - Respiratory Exam Respiratory Exam: Decreased Breath Sounds - Cardiovascular Exam Cardiovascular Exam: REGULAR RHYTHM - GI/Abdominal Exam GI & Abdominal Exam: Distended - Rectal Exam Rectal Exam: Deferred - Extremities Exam Extremities Exam: Pedal Edema, Tenderness - Back Exam Back Exam: absent: CVA tenderness (L), CVA tenderness (R) Assessment and Plan (1) Acute on chronic renal failure Status: Acute (2) Dehydration Status: Acute (3) Diabetic infection of right foot Status: Acute (4) Anemia Status: Acute (5) Chronic heel ulcer Status: Acute - Assessment and Plan (Free Text) Assessment: MSSA / Serratia in wound cont rx
[2017-05-15] MEDS: (Lantus) Insulin Glargine, Recombinant SC SCH (21:37)
--- NOTE | 2017-05-15 23:37 | CP.PCM.CON ---
History of Present Illness - History of Present Illness History of Present Illness: Patient seen and evaluated Due to multiple risk factors this patient assessed as moderate cardiac risk for cardiac events for the low risk peripheral angio and intervention Avoid fluid overload If benefit outweighs the risk, please proceed. cardiology will follow Patient is a 67 year old female with PMHx of DM II, COPD, CHF, HLD, HtN, PVD, CvA, ESRD and osteomyelitis presenting for right heel ulcer. Patient speaks Creole and some Icelandic. She says she does not walk without another person helping her. She is not sure how long she has had the ulcer but she thinks 3-4 days. She says it was bleeding and painful but does not hurt now because they gave her medicine for it. She says her legs are always swollen but the right one more than the left recently. Patient denies fever, chills, chest pain, SOB. PMHx: as above PSHx: Right 5th metatarsal amputation and angioplasty 2013 Social Hx: no tobacco, no ETOH, no drugs Allergies: NKDA Physical examination - Constitutional Appears: Non-toxic, No Acute Distress - Head Exam Head Exam: NORMAL INSPECTION - Eye Exam Eye Exam: EOMI - ENT Exam ENT Exam: Mucous Membranes Moist - Respiratory Exam Respiratory Exam: Clear to Ausculation Bilateral, NORMAL BREATHING PATTERN. absent: Rales, Rhonchi, Wheezes - Cardiovascular Exam Cardiovascular Exam: REGULAR RHYTHM, +S1, +S2. absent: Gallop, Rubs, Murmur - GI/Abdominal Exam GI & Abdominal Exam: Soft, Normal Bowel Sounds. absent: Tenderness - Extremities Exam Extremities Exam: Pedal Edema Additional comments: pitting edema and venous stasis changes to mid calf b/l negative Shiloh's Warm toes b/l Right heel wrapped in clean bandage odorous feet - Neurological Exam Neurological Exam: Alert, Awake, Oriented x3 - Psychiatric Exam Psychiatric exam: Normal Affect, Normal Mood - Skin Skin Exam: Normal Color, Warm Past Patient History - Past Medical History & Family History Past Medical History?: Yes - Past Social History Smoking Status: Never Smoked - CARDIAC Hx Congestive Heart Failure: Yes Hx Hypercholesterolemia: Yes Hx Hypertension: Yes - PULMONARY Hx Respiratory Disorders: Yes (Dyspnea) - NEUROLOGICAL HX Cerebrovascular Accident: Yes - HEENT Hx HEENT Problems: No - RENAL Hx Chronic Kidney Disease: Yes - ENDOCRINE/METABOLIC Hx Diabetes Mellitus Type 2: Yes - HEMATOLOGICAL/ONCOLOGICAL Hx Blood Disorders: No - INTEGUMENTARY Hx Dermatological Problems: Yes Other/Comment: pt. w/ diabetic ulcer-left heel - MUSCULOSKELETAL/RHEUMATOLOGICAL Hx Musculoskeletal Disorders: Yes Hx Falls: Yes Hx Osteomyelitis: Yes - GASTROINTESTINAL Hx Gastrointestinal Disorders: No - GENITOURINARY/GYNECOLOGICAL Hx Genitourinary Disorders: No - PSYCHIATRIC Hx Substance Use: No - SURGICAL HISTORY Hx Surgeries: Yes Hx Amputation: Yes (Toe) Hx Angiogram: Yes Hx Angioplasty: Yes (02/10/14) - ANESTHESIA Hx Anesthesia: Yes Hx Anesthesia Reactions: No Hx Malignant Hyperthermia: No Meds Allergies/Adverse Reactions: Allergies Allergy/AdvReac Type Severity Reaction Status Date / Time No Known Allergies Allergy Verified 03/20/14 15:10 - Medications Medications: Current Medications Acetylcysteine (Acetylcysteine 20%) 6 ml PO BID [facility] Stop: 05/17/17 10:01 Calcium Acetate (Phoslo) 667 mg PO TID [facility] Last Admin: 05/15/17 18:00 Dose: 667 mg Carvedilol (Coreg) 3.125 mg PO BID [facility] Last Admin: 05/15/17 18:00 Dose: 3.125 mg Clopidogrel Bisulfate (Plavix) 75 mg PO DAILY [facility] Last Admin: 05/15/17 09:13 Dose: Not Given Epoetin Etienne (Procrit) 10,000 unit SC MWF [facility] Last Admin: 05/15/17 08:35 Dose: 10,000 unit Ergocalciferol (Drisdol 50,000 Intl Units Cap) 1 cap PO Q7D [facility] Last Admin: 05/14/17 11:45 Dose: 1 cap Ferrous Gluconate (Fergon) 324 mg PO TID [facility] Last Admin: 05/15/17 18:00 Dose: 324 mg Fluoxetine HCl (Prozac) 20 mg PO DAILY [facility] Last Admin: 05/15/17 09:13 Dose: Not Given Piperacillin Sod/Tazobactam Sod (Zosyn 2.25 Gm Iv Premix) 2.25 gm in 50 mls @ 100 mls/hr IVPB Q8H [facility] Last Admin: 05/15/17 18:01 Dose: 100 mls/hr Insulin Aspart (Novolog Mix 70/30 (70/30 Units/Ml)) 0 units SC QID [facility] PRN Reason: Protocol Last Admin: 05/15/17 21:38 Dose: Not Given Insulin Glargine (Lantus) 10 unit SC HS [facility] Last Admin: 05/15/17 21:37 Dose: 10 unit Lactulose (Enulose) 20 gm PO HS [facility] Last Admin: 05/15/17 21:37 Dose: 20 gm Lisinopril (Zestril) 10 mg PO DAILY [facility] Last Admin: 05/15/17 09:13 Dose: Not Given Oxycodone/Acetaminophen (Percocet 5/325 Mg Tab) 1 tab PO Q4 PRN PRN Reason: Pain, Mild (1-3) Stop: 05/16/17 10:02 Pantoprazole Sodium (Protonix Ec Tab) 40 mg PO DAILY [facility] Last Admin: 05/15/17 09:13 Dose: Not Given Rosuvastatin Calcium (Crestor) 10 mg PO HS [facility] Last Admin: 05/15/17 21:37 Dose: 10 mg Sucralfate (Carafate Tab) 1 gm PO BID [facility] Last Admin: 05/15/17 18:00 Dose: 1 gm Vitamin B Complex/Vit C/Folic Acid (Nephro-Naren) 1 tab PO DAILY [facility] Last Admin: 05/15/17 09:12 Dose: Not Given Results - Vital Signs Recent Vital Signs: Last Vital Signs Temp 98.5 F 05/15/17 15:00 Pulse 63 05/15/17 15:00 Resp 20 05/15/17 15:00 BP 165/80 H 05/15/17 15:00 Pulse Ox 96 05/15/17 15:00 - Labs Result Diagrams: 05/26/17 06:24 05/26/17 06:24 Labs: Laboratory Results - last 24 hr 05/14/17 05/14/17 05/15/17 07:18 07:18 06:48 WBC 5.3 RBC 3.38 L Hgb 9.8 L Hct 31.1 L MCV 92.0 MCH 29.1 MCHC 31.6 L RDW 18.1 H Plt Count 219 MPV 9.5 Neut % (Auto) 62.6 Lymph % (Auto) 18.3 L Holt % (Auto) 11.6 H Eos % (Auto) 7.0 H Baso % (Auto) 0.5 Neut # 3.3 Lymph # 1.0 Holt # 0.6 Eos # 0.4 Baso # 0.0 PT INR APTT Sodium Potassium Chloride Carbon Dioxide Anion Gap BUN Creatinine Est GFR ( Amer) Est GFR (Non-Af Amer) POC Glucose (mg/dL) Random Glucose Calcium Total Bilirubin AST ALT Alkaline Phosphatase Total Protein Total Protein (PEP) 7.3 Albumin Globulin Albumin/Globulin Ratio PTH Intact Whole Molec 115 H Blood Type Antibody Screen 05/15/17 05/15/17 05/15/17 06:48 07:08 11:15 WBC RBC Hgb Hct MCV MCH MCHC RDW Plt Count MPV Neut % (Auto) Lymph % (Auto) Holt % (Auto) Eos % (Auto) Baso % (Auto) Neut # Lymph # Holt # Eos # Baso # PT INR APTT Sodium 139 Potassium 4.9 Chloride 107 Carbon Dioxide 22 Anion Gap 14 BUN 64 H Creatinine 2.3 H Est GFR ( Amer) 26 Est GFR (Non-Af Amer) 21 POC Glucose (mg/dL) 154 H 150 H Random Glucose 139 H Calcium 8.5 L Total Bilirubin 0.8 AST 22 ALT 42 Alkaline Phosphatase 157 H D Total Protein 6.3 Total Protein (PEP) Albumin 3.4 L Globulin 3.0 Albumin/Globulin Ratio 1.1 PTH Intact Whole Molec Blood Type Antibody Screen 05/15/17 05/15/17 05/15/17 11:39 16:30 17:21 WBC RBC Hgb Hct MCV MCH MCHC RDW Plt Count MPV Neut % (Auto) Lymph % (Auto) Holt % (Auto) Eos % (Auto) Baso % (Auto) Neut # Lymph # Holt # Eos # Baso # PT 24.3 H INR 2.1 APTT 40 H Sodium Potassium Chloride Carbon Dioxide Anion Gap BUN Creatinine Est GFR ( Amer) Est GFR (Non-Af Amer) POC Glucose (mg/dL) 104 Random Glucose Calcium Total Bilirubin AST ALT Alkaline Phosphatase Total Protein Total Protein (PEP) Albumin Globulin Albumin/Globulin Ratio PTH Intact Whole Molec Blood Type O POSITIVE Antibody Screen Negative 05/15/17 21:10 WBC RBC Hgb Hct MCV MCH MCHC RDW Plt Count MPV Neut % (Auto) Lymph % (Auto) Holt % (Auto) Eos % (Auto) Baso % (Auto) Neut # Lymph # Holt # Eos # Baso # PT INR APTT Sodium Potassium Chloride Carbon Dioxide Anion Gap BUN Creatinine Est GFR ( Amer) Est GFR (Non-Af Amer) POC Glucose (mg/dL) 91 Random Glucose Calcium Total Bilirubin AST ALT Alkaline Phosphatase Total Protein Total Protein (PEP) Albumin Globulin Albumin/Globulin Ratio PTH Intact Whole Molec Blood Type Antibody Screen Assessment & Plan - Assessment and Plan (Free Text) Assessment: Assessment and Plan - Assessment and Plan (Free Text) Assessment: Right Diabetic Heel Ulcer F/U Right foot X ray result Cefepime and Vanco in ER ID consult - Dr. Nunez - f/u recs Vascular Surgery consult - Dr. Romero - f/u recs Wound Care Nurse consult - f/u recs NPO in case of surgery NS @ 60ml/hr Percocet 5/325mg PO Q4H PRN pain Pedal Edema and PVD Stopping Norvasc Starting Lisinopril 10mg PO daily Acute on Chronic ESRD Dailysis F Procrit [facility] Nephrology consult - Dr. Jett - help appreciated Phoslo 667mg PO TID DMII F/U HgbA1C Lantus 10U SC HS Novolog 70/30 ISS H/O CVA Plavix 75mg PO daily H/O PVD with stents Plavix 75mg PO daily Warfarin 5mg PO HS INR 2.4 F/U INR daily H/O CHF Lasix 40mg PO daily No B-kam secondary to bradycardia Starting Lisinopril 10mg PO daily H/O Hyperlipidemia Converting home med of lipitor 20mg PO daily to formulary Depression Prozac 20mg PO daily Prophylaxis Protonix 40mg PO daily Sucralfate Warfarin Plavix
[2017-05-16] MEDS: Piperacill/Tazo 2.25gm in Dex 2.25 GM/50 ML BAG IVPB SCH ×3 (02:00→18:20)
[2017-05-16 07:22] LABS: BETA 1 GLOBULIN 0.5 g/dL (0.4-0.6); BETA 2 GLOBULIN 0.4 g/dL (0.2-0.5); GAMMA GLOBULIN 1.6 g/dL (0.8-1.7)
[2017-05-16 07:58] LABS: INR 1.9
[2017-05-16 08:06] LABS: BASO % 0.5 % (0.0-2.0); EOS # 0.3 K/uL (0.0-0.7); EOS % 4.3 % (0.0-4.0); HEMATOCRIT 29.8 % (34.0-47.0); LYMPH # 1.1 K/uL (1.0-4.3); LYMPH % 15.8 % (20.0-40.0); MEAN CELL VOLUME 90.8 fL (81.0-99.0); MEAN CORPUSCULAR HEMOGLOBIN 29.1 pg (27.0-31.0); MEAN PLATELET VOLUME 9.5 fL (7.2-11.7); MONO # 0.7 K/uL (0.0-0.8); NRBC % 0.2 % (0.0-2.0); RED CELL DISTRIBUTION WIDTH 17.9 % (11.5-14.5); WHITE BLOOD COUNT 6.8 K/uL (4.8-10.8)
[2017-05-16 08:13] LABS: POTASSIUM 4.8 mmol/L (3.6-5.2)
[2017-05-16 08:15] LABS: ALB/GLOB RATIO 1.1 (1.0-2.1); TOTAL PROTEIN 6.5 g/dL (6.3-8.3)
[2017-05-16 08:16] LABS: CALCIUM 8.6 mg/dl (8.6-10.4)
[2017-05-16] MEDS: Multivitamin Vitamin B Complex (Nephro-Vite) Tab PO SCH (10:13)
[2017-05-16] MEDS: (Novolog Mix 70/30) Insulin Aspart/Insulin Aspar 100 units/ml SC SCH ×4 (10:13→21:36)
[2017-05-16] MEDS: Pantoprazole 40 mg EC Tab PO SCH (10:14)
--- NOTE | 2017-05-16 13:05 | CP.PCM.PN ---
Subjective - Date & Time of Evaluation Date of Evaluation: 05/16/17 Time of Evaluation: 13:00 - Subjective Subjective: Progress note. Attending: Dr. Denis Pt seen and examined at bedside. No acute distress. No events overnight. Patient will most likely have angiogram tomorrow. Waiting on INR. No complaints. No fevers, chills, vomiting, diarrhea, chest pain, shortness of breath. Objective - Vital Signs/Intake and Output Vital Signs (last 24 hours): Temp Pulse Resp BP Pulse Ox 97.7 F 67 20 161/75 H 95 05/16/17 09:32 05/16/17 11:51 05/16/17 09:32 05/16/17 11:51 05/16/17 11:51 Intake and Output: 05/16/17 05/16/17 06:59 18:59 Intake Total 587 Balance 587 - Medications Medications: Current Medications Acetylcysteine (Acetylcysteine 20%) 6 ml PO BID [facility] Stop: 05/17/17 10:01 Calcium Acetate (Phoslo) 667 mg PO TID [facility] Last Admin: 05/16/17 10:14 Dose: Not Given Carvedilol (Coreg) 3.125 mg PO BID [facility] Last Admin: 05/16/17 10:28 Dose: 3.125 mg Clopidogrel Bisulfate (Plavix) 75 mg PO DAILY [facility] Last Admin: 05/16/17 10:14 Dose: Not Given Epoetin Etienne (Procrit) 10,000 unit SC MWF [facility] Last Admin: 05/15/17 08:35 Dose: 10,000 unit Ergocalciferol (Drisdol 50,000 Intl Units Cap) 1 cap PO Q7D [facility] Last Admin: 05/14/17 11:45 Dose: 1 cap Ferrous Gluconate (Fergon) 324 mg PO TID [facility] Last Admin: 05/16/17 10:13 Dose: Not Given Fluoxetine HCl (Prozac) 20 mg PO DAILY [facility] Last Admin: 05/16/17 10:14 Dose: Not Given Piperacillin Sod/Tazobactam Sod (Zosyn 2.25 Gm Iv Premix) 2.25 gm in 50 mls @ 100 mls/hr IVPB Q8H [facility] Last Admin: 05/16/17 11:12 Dose: 100 mls/hr Insulin Aspart (Novolog Mix 70/30 (70/30 Units/Ml)) 0 units SC QID [facility] PRN Reason: Protocol Last Admin: 05/16/17 10:13 Dose: Not Given Insulin Glargine (Lantus) 10 unit SC [facility] Last Admin: 05/15/17 21:37 Dose: 10 unit Lactulose (Enulose) 20 gm PO HS [facility] Last Admin: 05/15/17 21:37 Dose: 20 gm Lisinopril (Zestril) 10 mg PO DAILY [facility] Last Admin: 05/16/17 10:17 Dose: Not Given Pantoprazole Sodium (Protonix Ec Tab) 40 mg PO DAILY [facility] Last Admin: 05/16/17 10:14 Dose: Not Given Rosuvastatin Calcium (Crestor) 10 mg PO [facility] Last Admin: 05/15/17 21:37 Dose: 10 mg Sucralfate (Carafate Tab) 1 gm PO BID [facility] Last Admin: 05/16/17 10:13 Dose: Not Given Vitamin B Complex/Vit C/Folic Acid (Nephro-Naren) 1 tab PO DAILY [facility] Last Admin: 05/16/17 10:13 Dose: Not Given - Labs Labs: 05/16/17 07:43 05/16/17 07:43 PT 21.9 SECONDS (9.7-12.2) H 05/16/17 07:43 INR 1.9 05/16/17 07:43 APTT 40 SECONDS (21-34) H 05/15/17 11:39 - Constitutional Appears: Non-toxic, No Acute Distress - Head Exam Head Exam: ATRAUMATIC, NORMAL INSPECTION, NORMOCEPHALIC - Eye Exam Eye Exam: EOMI - ENT Exam ENT Exam: Mucous Membranes Moist - Neck Exam Neck Exam: Full ROM, Normal Inspection - Respiratory Exam Respiratory Exam: NORMAL BREATHING PATTERN. absent: Respiratory Distress - Cardiovascular Exam Cardiovascular Exam: +S1, +S2 - GI/Abdominal Exam GI & Abdominal Exam: Soft, Normal Bowel Sounds. absent: Tenderness - Extremities Exam Additional comments: B/L leg edema 2 + dressing clean, dry, intact. - Neurological Exam Neurological Exam: Alert, Awake, Oriented x3 - Psychiatric Exam Psychiatric exam: Normal Affect, Normal Mood - Skin Skin Exam: Dry, Intact, Normal Color, Warm Assessment and Plan - Assessment and Plan (Free Text) Assessment: This is a 67 yo female with 1. Right Diabetic Heel Ulcer -Right foot X ray shows no evidence of osteomyelitis -Cefepime and vancomycin given in ER -ID consult - Dr. Nunez - recs appreciated. - Zosyn 2.25gm IV q8h (started on 05/13) and Vanco 1gm IV MWF (start on 05/15) -Vascular Surgery consult - Dr. Romero - f/u recs - Wound Care Nurse consult - f/u recs -Percocet 5/325mg PO Q4H PRN pain -05/13 right ankle wound culture POSITIVE for proteus and staph aureus -cardio consult. Dr. Ledesma. recs appreciated. -angiogram most likely happening tomorrow -echo pending 2. Pedal Edema and PVD -amlodipine has been discontinued 3. Hx of HTN -BP elevated -Lisinopril 10mg PO daily -Lasix 40mg PO daily -low dose coreg 3.125 mg PO BID (monitor for bradycardia) -Monitor vitals q4h 4. Acute on Chronic Kidney Disease -Procrit [facility] -Nephrology consult - Dr. Torres - help appreciated -Phoslo 667mg PO TID -Avoid nephrotoxins/NSAIDs/ iodinated contrast (unless needed emergently) -urine studies ordered 5. DMII -HgbA1C 10.3 -Lantus 10U SC HS -Novolog 70/30 ISS -Accuchecks 6. Anemia -normocytic -Likely secondary to chronic kidney disease -Iron 30, TIBC 373, % sat 8, [facility]ritin [facility]Monitor CBC daily -continue ferrous gluconate 324 tid 7. H/O CVA -Plavix 75mg PO daily -PT evaluation- recommend TROY upon discharge -Fall risk protocol 8. H/O PVD with stents -Plavix 75mg PO daily -F/U INR daily 9. H/O CHF -Lasix 40mg PO daily -Low dose coreg 3.125mg PO BID (monitor for bradycardia) -Lisinopril 10mg PO daily 10. H/O Hyperlipidemia -continue crestor 10 mg PO HS 11. Depression -Prozac 20mg PO daily -Denies suicidal/homicidal ideations at this time 12. Vitamin D deficiency -Vit D 20.8 -continue Ergocalciferol 50,000u qweekly 13. Prophylaxis -Protonix 40mg PO daily -Sucralfate -Warfarin -Plavix [address] Denis
--- NOTE | 2017-05-16 17:00 | CP.PCM.PN ---
Subjective - Date & Time of Evaluation Date of Evaluation: 05/16/17 Time of Evaluation: 16:59 - Subjective Subjective: Follow up Nephrology Consultation: Assessment: Stable Non-healing ulcer on heel with celluliits Diabetic chronic Kidney Disease (E11.22) Hypertensive Chronic Kidney Disease (I12.9) Chronic Kidney Disease (N18.4) Stage 4 with ? mg proteinuria (R80.9) possibly due to DM and or HTN Anemia (D64.9), Hyperphosphatemia (E83.39), HTN (I12.9) CHF, obesity, PVD, depression Plan No acute need for renal replacement therapy at this time. Hypertension control with meds as ordered. Patient on ACEI/ARB as lisinopril. added low dose coreg. will try to increase lisinopril and resume lasix once creat stable after angiogram. Monitor Input/Output, daily weights and renal function with basic metabolic panel planned for angiogram in AM, pt will be at increased risk of contrast nephropathy. IVF not indicated due to CHF and current edema (but could hold lasix for now) and continue with statin, given mucormyst 1200 mg bid x 48 hrs. continue with her home dose epogen (hold if Hb>11) and phoslo continue with vit D and oral iron supplementation ID and vascular surgery following Dose meds/antibiotics for reduced GFR. Avoid fleets enema/magnesium based laxatives. Avoid nephrotoxins/NSAIDs/ iodinated contrast (unless needed emergently) Glycemic control Further work up/management as per primary team Thanks for allowing me to participate in care of your patient. Will follow patient with you. Please call if any Qs Dr Juan Torres Office: [phone] Chief Complaint; heel ulcer HPI: Pt is a 67 y/o F with hx of diabetes Mellitus hypertension, CHF, chronic anemia, hyperphos, DVT on coumadin, drpression, obesity, dementia, CVA, CKD ? 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 staff helped in creole interpretation. ROS: She Denies chest pain, palpitation, shortness of breath Physical Examination: General Appearance: Comfortable, in no acute respiratory distress, co-operative . obese Vitals reviewed and noted as below Lungs: Normal respiratory rate/effort. Breath sounds bilateral equal and clear Heart: Normal rate. s1s2 normal. No rub or gallop. Extremities: 1-2+ edema. No varicose veins. has chronic venous stasis changes. both feets in dressings. Neurological: Patient is alert, awake and not oriented to person, place or time. No focal deficit. Strength bilateral appropriate and equal Skin: Warm and dry. Normal turgor. No rash. Palpitation: Normal elasticity for age Abdomen: Abdomen is soft. Bowel sounds +. There is no abdominal tenderness, no guarding/rigidity no organomegaly. she is obese, flank and lower abdomen fullness noted. Psych: lack insight MSK: no joint tenderness or swelling. Digits and nails normal, no deformity : kidney or bladder not palpable Labs/imaging/EKG reviewed. Past medical history, past surgical history, family history, social history, allergy reviewed and noted as below Family hx: no hx of CKD. Rest non-contributory Objective - Vital Signs/Intake and Output Vital Signs (last 24 hours): Temp Pulse Resp BP Pulse Ox 98.5 F 70 20 169/100 H 98 05/16/17 15:00 05/16/17 15:00 05/16/17 15:00 05/16/17 15:00 05/16/17 15:00 Intake and Output: 05/16/17 05/16/17 06:59 18:59 Intake Total 587 Balance 587 - Medications Medications: Current Medications Acetylcysteine (Acetylcysteine 20%) 6 ml PO BID [facility] Stop: 05/17/17 10:01 Calcium Acetate (Phoslo) 667 mg PO TID [facility] Last Admin: 05/16/17 13:13 Dose: 667 mg Carvedilol (Coreg) 3.125 mg PO BID [facility] Last Admin: 05/16/17 10:28 Dose: 3.125 mg Clopidogrel Bisulfate (Plavix) 75 mg PO DAILY [facility] Last Admin: 05/16/17 10:14 Dose: Not Given Epoetin Etienne (Procrit) 10,000 unit SC MWF [facility] Last Admin: 05/15/17 08:35 Dose: 10,000 unit Ergocalciferol (Drisdol 50,000 Intl Units Cap) 1 cap PO Q7D [facility] Last Admin: 05/14/17 11:45 Dose: 1 cap Ferrous Gluconate (Fergon) 324 mg PO TID [facility] Last Admin: 05/16/17 13:13 Dose: 324 mg Fluoxetine HCl (Prozac) 20 mg PO DAILY [facility] Last Admin: 05/16/17 10:14 Dose: Not Given Piperacillin Sod/Tazobactam Sod (Zosyn 2.25 Gm Iv Premix) 2.25 gm in 50 mls @ 100 mls/hr IVPB Q8H [facility] Last Admin: 05/16/17 11:12 Dose: 100 mls/hr Insulin Aspart (Novolog Mix 70/30 (70/30 Units/Ml)) 0 units SC QID [facility] PRN Reason: Protocol Last Admin: 05/16/17 14:25 Dose: Not Given Insulin Glargine (Lantus) 10 unit SC HS [facility] Last Admin: 05/15/17 21:37 Dose: 10 unit Lactulose (Enulose) 20 gm PO HS [facility] Last Admin: 05/15/17 21:37 Dose: 20 gm Lisinopril (Zestril) 10 mg PO DAILY [facility] Last Admin: 05/16/17 10:17 Dose: Not Given Pantoprazole Sodium (Protonix Ec Tab) 40 mg PO DAILY [facility] Last Admin: 05/16/17 10:14 Dose: Not Given Rosuvastatin Calcium (Crestor) 10 mg PO HS [facility] Last Admin: 05/15/17 21:37 Dose: 10 mg Sucralfate (Carafate Tab) 1 gm PO BID [facility] Last Admin: 05/16/17 10:13 Dose: Not Given Vitamin B Complex/Vit C/Folic Acid (Nephro-Naren) 1 tab PO DAILY [facility] Last Admin: 05/16/17 10:13 Dose: Not Given - Labs Labs: 05/16/17 07:43 05/16/17 07:43 PT 21.9 SECONDS (9.7-12.2) H 05/16/17 07:43 INR 1.9 05/16/17 07:43 APTT 40 SECONDS (21-34) H 05/15/17 11:39
[2017-05-16] MEDS: Acetylcysteine 20% Inhal Soln (4ml) PO SCH (18:38)
[2017-05-16 20:05] LABS: INR 1.7
[2017-05-16] MEDS: (Lantus) Insulin Glargine, Recombinant SC SCH (21:40)
--- NOTE | 2017-05-17 00:15 | CP.PCM.PN ---
Subjective - Date & Time of Evaluation Date of Evaluation: 05/16/17 Time of Evaluation: 15:15 - Subjective Subjective: Patient seen and evaluated Denies chest pain and dyspnea No cardiac events noted Physical examination - Constitutional Appears: Non-toxic, No Acute Distress - Head Exam Head Exam: NORMAL INSPECTION - Eye Exam Eye Exam: EOMI - ENT Exam ENT Exam: Mucous Membranes Moist - Respiratory Exam Respiratory Exam: Clear to Ausculation Bilateral, NORMAL BREATHING PATTERN. absent: Rales, Rhonchi, Wheezes - Cardiovascular Exam Cardiovascular Exam: REGULAR RHYTHM, +S1, +S2. absent: Gallop, Rubs, Murmur - GI/Abdominal Exam GI & Abdominal Exam: Soft, Normal Bowel Sounds. absent: Tenderness - Extremities Exam Extremities Exam: Pedal Edema Additional comments: pitting edema and venous stasis changes to mid calf b/l negative Shiloh's Warm toes b/l Right heel wrapped in clean bandage odorous feet - Neurological Exam Neurological Exam: Alert, Awake, Oriented x3 - Psychiatric Exam Psychiatric exam: Normal Affect, Normal Mood - Skin Skin Exam: Normal Color, Warm Objective - Vital Signs/Intake and Output Vital Signs (last 24 hours): Temp Pulse Resp BP Pulse Ox 98.5 F 70 20 169/100 H 98 05/16/17 15:00 05/16/17 15:00 05/16/17 15:00 05/16/17 15:00 05/16/17 15:00 Intake and Output: 05/16/17 05/17/17 18:59 06:59 Intake Total 200 Balance 200 - Medications Medications: Current Medications Acetylcysteine (Acetylcysteine 20%) 6 ml PO BID [facility] Stop: 05/17/17 10:01 Last Admin: 05/16/17 18:38 Dose: 6 ml Calcium Acetate (Phoslo) 667 mg PO TID [facility] Last Admin: 05/16/17 18:20 Dose: 667 mg Carvedilol (Coreg) 3.125 mg PO BID [facility] Last Admin: 05/16/17 18:20 Dose: 3.125 mg Clopidogrel Bisulfate (Plavix) 75 mg PO DAILY [facility] Last Admin: 05/16/17 10:14 Dose: Not Given Epoetin Etienne (Procrit) 10,000 unit SC MWF [facility] Last Admin: 05/15/17 08:35 Dose: 10,000 unit Ergocalciferol (Drisdol 50,000 Intl Units Cap) 1 cap PO Q7D [facility] Last Admin: 05/14/17 11:45 Dose: 1 cap Ferrous Gluconate (Fergon) 324 mg PO TID [facility] Last Admin: 05/16/17 18:20 Dose: 324 mg Fluoxetine HCl (Prozac) 20 mg PO DAILY [facility] Last Admin: 05/16/17 10:14 Dose: Not Given Hydralazine HCl (Apresoline) 25 mg PO Q4 PRN PRN Reason: Other Piperacillin Sod/Tazobactam Sod (Zosyn 2.25 Gm Iv Premix) 2.25 gm in 50 mls @ 100 mls/hr IVPB Q8H [facility] Last Admin: 05/16/17 18:20 Dose: 100 mls/hr Insulin Aspart (Novolog Mix 70/30 (70/30 Units/Ml)) 0 units SC QID [facility] PRN Reason: Protocol Last Admin: 05/16/17 21:36 Dose: Not Given Insulin Glargine (Lantus) 10 unit SC [facility] Last Admin: 05/16/17 21:40 Dose: 10 unit Lactulose (Enulose) 20 gm PO [facility] Last Admin: 05/16/17 21:43 Dose: Not Given Lisinopril (Zestril) 10 mg PO DAILY [facility] Last Admin: 05/16/17 10:17 Dose: Not Given Pantoprazole Sodium (Protonix Ec Tab) 40 mg PO DAILY [facility] Last Admin: 05/16/17 10:14 Dose: Not Given Rosuvastatin Calcium (Crestor) 10 mg PO [facility] Last Admin: 05/16/17 21:38 Dose: 10 mg Sucralfate (Carafate Tab) 1 gm PO BID [facility] Last Admin: 05/16/17 18:28 Dose: 1 gm Vitamin B Complex/Vit C/Folic Acid (Nephro-Naren) 1 tab PO DAILY [facility] Last Admin: 05/16/17 10:13 Dose: Not Given - Labs Labs: 05/16/17 07:43 05/16/17 07:43 PT 19.1 SECONDS (9.7-12.2) H 05/16/17 19:46 INR 1.7 05/16/17 19:46 APTT 40 SECONDS (21-34) H 05/15/17 11:39 Assessment and Plan - Assessment and Plan (Free Text) Assessment: Assessment and Plan - Assessment and Plan (Free Text) Assessment: Right Diabetic Heel Ulcer F/U Right foot X ray result Cefepime and Vanco in ER ID consult - Dr. Nunez - f/u recs Vascular Surgery consult - Dr. Romero - f/u recs Wound Care Nurse consult - f/u recs NPO in case of surgery NS @ 60ml/hr Percocet 5/325mg PO Q4H PRN pain Pedal Edema and PVD Stopping Norvasc Starting Lisinopril 10mg PO daily Acute on Chronic ESRD Dailysis MW Procrit [facility] Nephrology consult - Dr. Jett - help appreciated Phoslo 667mg PO TID DMII F/U HgbA1C Lantus 10U SC HS Novolog 70/30 ISS H/O CVA Plavix 75mg PO daily H/O PVD with stents Plavix 75mg PO daily Warfarin 5mg PO HS INR 2.4 F/U INR daily H/O CHF Lasix 40mg PO daily No B-kam secondary to bradycardia Starting Lisinopril 10mg PO daily H/O Hyperlipidemia Converting home med of lipitor 20mg PO daily to formulary Depression Prozac 20mg PO daily Prophylaxis Protonix 40mg PO daily Sucralfate Warfarin Plavix All medical management per Dr. Denis
[2017-05-17] MEDS: Piperacill/Tazo 2.25gm in Dex 2.25 GM/50 ML BAG IVPB SCH ×3 (03:22→19:42)
[2017-05-17] MEDS ORDERED: Phytonadione 10 mg/ml Inj (Adult) SC STA (04:28)
[2017-05-17 06:44] LABS: INR 1.5
[2017-05-17 06:54] LABS: ALB/GLOB RATIO 0.9 (1.0-2.1); BILIRUBIN,TOTAL 0.8 mg/dL (0.2-1.3); CALCIUM 8.7 mg/dl (8.6-10.4); MAGNESIUM 1.8 mg/dL (1.6-2.3); PHOSPHOROUS 3.8 mg/dL (2.5-4.5); POTASSIUM 4.6 mmol/L (3.6-5.2); TOTAL PROTEIN 7.4 g/dL (6.3-8.3)
[2017-05-17 07:25] LABS: BASO % 0.4 % (0.0-2.0); EOS # 0.2 K/uL (0.0-0.7); EOS % 3.1 % (0.0-4.0); HEMATOCRIT 30.2 % (34.0-47.0); LYMPH % 14.1 % (20.0-40.0); MEAN CELL VOLUME 91.2 fL (81.0-99.0); MEAN CORPUSCULAR HEMOGLOBIN 29.3 pg (27.0-31.0); MEAN CORPUSCULAR HGB CONC 32.1 g/dL (33.0-37.0); MEAN PLATELET VOLUME 9.5 fL (7.2-11.7); MONO # 0.8 K/uL (0.0-0.8); MONO % 11.8 % (0.0-10.0); NRBC % 0.4 % (0.0-2.0); RED CELL DISTRIBUTION WIDTH 18.1 % (11.5-14.5); WHITE BLOOD COUNT 7.1 K/uL (4.8-10.8)
[2017-05-17] MEDS: Epoetin Alfa 10,000 unit/ml Dialysis SC SCH (09:08)
[2017-05-17] MEDS: (Novolog Mix 70/30) Insulin Aspart/Insulin Aspar 100 units/ml SC SCH ×3 (09:10→19:37)
[2017-05-17] MEDS: Pantoprazole 40 mg EC Tab PO SCH (09:30)
[2017-05-17] MEDS: Multivitamin Vitamin B Complex (Nephro-Vite) Tab PO SCH (09:36)
[2017-05-17] MEDS: Acetylcysteine 20% Inhal Soln (4ml) PO SCH (10:03)
--- NOTE | 2017-05-17 13:59 | CP.PCM.PN ---
Subjective - Date & Time of Evaluation Date of Evaluation: 05/17/17 Time of Evaluation: 07:30 - Subjective Subjective: Medicine Progress Note- Dr Denis's service Patient seen and examined. Patient states that she feels well. No acute events overnight. Patient is scheduled for angiogram today. ECHO done this morning. Objective - Vital Signs/Intake and Output Vital Signs (last 24 hours): Temp Pulse Resp BP Pulse Ox 98.0 F 85 20 149/84 94 L 05/17/17 08:50 05/17/17 08:50 05/17/17 08:50 05/17/17 08:50 05/17/17 08:50 Intake and Output: 05/17/17 05/17/17 06:59 18:59 Intake Total 200 50 Balance 200 50 - Medications Medications: Current Medications Calcium Acetate (Phoslo) 667 mg PO TID [facility] Last Admin: 05/17/17 13:50 Dose: Not Given Carvedilol (Coreg) 3.125 mg PO BID [facility] Last Admin: 05/17/17 09:29 Dose: 3.125 mg Clopidogrel Bisulfate (Plavix) 75 mg PO DAILY [facility] Last Admin: 05/17/17 09:30 Dose: Not Given Epoetin Etienne (Procrit) 10,000 unit SC MWF [facility] Last Admin: 05/17/17 09:08 Dose: 10,000 unit Ergocalciferol (Drisdol 50,000 Intl Units Cap) 1 cap PO Q7D [facility] Last Admin: 05/14/17 11:45 Dose: 1 cap Ferrous Gluconate (Fergon) 324 mg PO TID [facility] Last Admin: 05/17/17 13:50 Dose: Not Given Fluoxetine HCl (Prozac) 20 mg PO DAILY [facility] Last Admin: 05/17/17 09:36 Dose: 20 mg Hydralazine HCl (Apresoline) 25 mg PO Q4 PRN PRN Reason: Other Piperacillin Sod/Tazobactam Sod (Zosyn 2.25 Gm Iv Premix) 2.25 gm in 50 mls @ 100 mls/hr IVPB Q8H [facility] Last Admin: 05/17/17 10:03 Dose: 100 mls/hr Insulin Aspart (Novolog Mix 70/30 (70/30 Units/Ml)) 0 units SC QID [facility] PRN Reason: Protocol Last Admin: 05/17/17 13:50 Dose: Not Given Insulin Glargine (Lantus) [address] [facility] Last Admin: 05/16/17 21:40 Dose: 10 unit Lactulose (Enulose) [address] [facility] Last Admin: 05/16/17 21:43 Dose: Not Given Lisinopril (Zestril) 10 mg PO DAILY [facility] Last Admin: 05/17/17 09:29 Dose: 10 mg Pantoprazole Sodium (Protonix Ec Tab) 40 mg PO DAILY [facility] Last Admin: 05/17/17 09:30 Dose: 40 mg Rosuvastatin Calcium (Crestor) [address] [facility] Last Admin: 05/16/17 21:38 Dose: 10 mg Sucralfate (Carafate Tab) 1 gm PO BID [facility] Last Admin: 05/17/17 09:30 Dose: 1 gm Vitamin B Complex/Vit C/Folic Acid (Nephro-Naren) 1 tab PO DAILY [facility] Last Admin: 05/17/17 09:36 Dose: 1 tab - Labs Labs: 05/17/17 06:31 05/17/17 06:31 PT 17.0 SECONDS (9.7-12.2) H 05/17/17 06:31 INR 1.5 05/17/17 06:31 APTT 40 SECONDS (21-34) H 05/15/17 11:39 - Additional Findings Additional findings: - Constitutional Appears: Non-toxic, No Acute Distress - Head Exam Head Exam: ATRAUMATIC, NORMAL INSPECTION, NORMOCEPHALIC - Eye Exam Eye Exam: EOMI - ENT Exam ENT Exam: Mucous Membranes Moist - Neck Exam Neck Exam: Full ROM, Normal Inspection - Respiratory Exam Respiratory Exam: NORMAL BREATHING PATTERN. absent: Respiratory Distress - Cardiovascular Exam Cardiovascular Exam: +S1, +S2 - GI/Abdominal Exam GI & Abdominal Exam: Soft, Normal Bowel Sounds. absent: Tenderness - Extremities Exam Additional comments: B/L leg edema 2 + dressing clean, dry, intact. - Neurological Exam Neurological Exam: Alert, Awake, Oriented x3 - Psychiatric Exam Psychiatric exam: Normal Affect, Normal Mood - Skin Skin Exam: Dry, Intact, Normal Color, Warm Assessment and Plan - Assessment and Plan (Free Text) Assessment: 1. Right Diabetic Heel Ulcer -Right foot X ray shows no evidence of osteomyelitis -Cefepime and vancomycin given in ER -ID consult - Dr. Nunez - recs appreciated. - Zosyn 2.25gm IV q8h (started on 05/13) and Vanco 1gm IV MWF (start on 05/15) -Vascular Surgery consult - Dr. Romero - f/u recs - Wound Care Nurse consult - f/u recs -Percocet 5/325mg PO Q4H PRN pain -05/13 right ankle wound culture POSITIVE for proteus and staph aureus -Blood culture + coag neg staph aureus -cardio consult. Dr. Ledesma. recs that patient may go ahead with angiogram. recommendation appreciated. -ECHO done today with results pending -Follow up angiogram results 2. Pedal Edema and PVD -amlodipine has been discontinued -Chronic. f/u vascular surgery recs -keep legs elevated 3. Hx of HTN -BP elevated -Lisinopril 10mg PO daily -Lasix 40mg PO daily -low dose coreg 3.125 mg PO BID (monitor for bradycardia) -Monitor vitals q4h 4. Acute on Chronic Kidney Disease [facility] -Nephrology consult - Dr. Torres - help appreciated -Phoslo 667mg PO TID -Avoid nephrotoxins/NSAIDs/ iodinated contrast (unless needed emergently) -urine studies ordered 5. DMII -HgbA1C 10.3 -Lantus 10U SC HS -Novolog 70/30 ISS -Accuchecks 6. Anemia -normocytic -Likely secondary to chronic kidney disease -Iron 30, TIBC 373, % sat 8, ferritin 42 [facility] -Monitor CBC daily -continue ferrous gluconate 324 tid 7. H/O CVA -Plavix 75mg PO daily -PT evaluation- recommend TROY upon discharge -Fall risk protocol 8. H/O PVD with stents -Plavix 75mg PO daily -F/U INR daily 9. H/O CHF -Lasix 40mg PO daily -Low dose coreg 3.125mg PO BID (monitor for bradycardia) -Lisinopril 10mg PO daily 10. H/O Hyperlipidemia -continue crestor 10 mg PO HS 11. Depression -Prozac 20mg PO daily -Denies suicidal/homicidal ideations at this time 12. Vitamin D deficiency -Vit D 20.8 -continue Ergocalciferol 50,000u qweekly 13. Prophylaxis -Protonix 40mg PO daily -Sucralfate -Warfarin -Plavix [address] Denis
[2017-05-17] MEDS ORDERED: Iodixanol 320 MG/ML 100 ML BOTTLE IV ONE (15:16)
[2017-05-17] MEDS ORDERED: Lidocaine 2% Inj (20ml) ONE (15:16)
[2017-05-17] MEDS ORDERED: Iodixanol 320 MG/ML 200 ML BOTTLE IV ONE (15:16)
--- NOTE | 2017-05-17 16:37 | PCM.SURG1 ---
Surgeon's Initial Post Op Note - Surgeon's Notes Surgeon: henrietta [employer] Wafer: 0 Type of Anesthesia: IV Sedation Anesthesia Administered By: alex damian Pre-Operative Diagnosis: gangrene right foot. ischemic ulcer left heel Operative Findings: severe tibial disease on right. no endovascular or surgical target available. left focal occlusion of popliteal with single vessel , posterior tibial to foot Post-Operative Diagnosis: same Operation Performed: aortofemoral angiogram via left groin with selective catherization of right. no intervention Specimen/Specimens Removed: 0 Estimated Blood Loss: EBL {In ML}: 25 Blood Products Given: N/A Drains Used: No Drains Post-Op Condition: Good Date of Surgery/Procedure: 05/17/17 Time of Surgery/Procedure: 16:38
--- NOTE | 2017-05-17 16:41 | CP.PCM.PN ---
Subjective - Date & Time of Evaluation Date of Evaluation: 05/17/17 Time of Evaluation: 16:39 - Subjective Subjective: severe PVD , no named vessels on right not suitable for surgical or endovascular Rx recommend BKA left side has focal occlusion of popliteal suitable for endovascular Rx need to recheck renal function and plan in near future Objective - Vital Signs/Intake and Output Vital Signs (last 24 hours): Temp Pulse Resp BP Pulse Ox 98.0 F 82 20 149/84 91 L 05/17/17 08:50 05/17/17 13:47 05/17/17 08:50 05/17/17 08:50 05/17/17 13:47 Intake and Output: 05/17/17 05/17/17 06:59 18:59 Intake Total 200 50 Balance 200 50 - Medications Medications: Current Medications Calcium Acetate (Phoslo) 667 mg PO TID [facility] Last Admin: 05/17/17 13:50 Dose: Not Given Carvedilol (Coreg) 3.125 mg PO BID [facility] Last Admin: 05/17/17 09:29 Dose: 3.125 mg Clopidogrel Bisulfate (Plavix) 75 mg PO DAILY [facility] Last Admin: 05/17/17 09:30 Dose: Not Given Epoetin Etienne (Procrit) 10,000 unit SC MWF [facility] Last Admin: 05/17/17 09:08 Dose: 10,000 unit Ergocalciferol (Drisdol 50,000 Intl Units Cap) 1 cap PO Q7D [facility] Last Admin: 05/14/17 11:45 Dose: 1 cap Ferrous Gluconate (Fergon) 324 mg PO TID [facility] Last Admin: 05/17/17 13:50 Dose: Not Given Fluoxetine HCl (Prozac) 20 mg PO DAILY [facility] Last Admin: 05/17/17 09:36 Dose: 20 mg Hydralazine HCl (Apresoline) 25 mg PO Q4 PRN PRN Reason: Other Piperacillin Sod/Tazobactam Sod (Zosyn 2.25 Gm Iv Premix) 2.25 gm in 50 mls @ 100 mls/hr IVPB Q8H [facility] Last Admin: 05/17/17 10:03 Dose: 100 mls/hr Insulin Aspart (Novolog Mix 70/30 (70/30 Units/Ml)) 0 units SC QID [facility] PRN Reason: Protocol Last Admin: 05/17/17 13:50 Dose: Not Given Insulin Glargine (Lantus) 10 unit SC [facility] Last Admin: 05/16/17 21:40 Dose: 10 unit Lactulose (Enulose) 20 gm PO HS [facility] Last Admin: 05/16/17 21:43 Dose: Not Given Lisinopril (Zestril) 10 mg PO DAILY [facility] Last Admin: 05/17/17 09:29 Dose: 10 mg Pantoprazole Sodium (Protonix Ec Tab) 40 mg PO DAILY [facility] Last Admin: 05/17/17 09:30 Dose: 40 mg Rosuvastatin Calcium (Crestor) 10 mg PO [facility] Last Admin: 05/16/17 21:38 Dose: 10 mg Sucralfate (Carafate Tab) 1 gm PO BID [facility] Last Admin: 05/17/17 09:30 Dose: 1 gm Vitamin B Complex/Vit C/Folic Acid (Nephro-Naren) 1 tab PO DAILY [facility] Last Admin: 05/17/17 09:36 Dose: 1 tab - Labs Labs: 05/17/17 06:31 05/17/17 06:31 PT 17.0 SECONDS (9.7-12.2) H 05/17/17 06:31 INR 1.5 05/17/17 06:31 APTT 40 SECONDS (21-34) H 05/15/17 11:39
--- NOTE | 2017-05-17 16:50 | CP.PCM.PN ---
Subjective - Date & Time of Evaluation Date of Evaluation: 05/17/17 Time of Evaluation: 11:00 - Subjective Subjective: Follow up Nephrology Consultation: Assessment: Stable Non-healing ulcer on heel with celluliits Diabetic chronic Kidney Disease (E11.22) Hypertensive Chronic Kidney Disease (I12.9) Chronic Kidney Disease (N18.4) Stage 4 with ? mg proteinuria (R80.9) possibly due to DM and or HTN Anemia (D64.9), Hyperphosphatemia (E83.39), HTN (I12.9) CHF, obesity, PVD, depression Plan No acute need for renal replacement therapy at this time. Hypertension control with meds as ordered. Patient on ACEI/ARB as lisinopril. added low dose coreg. will try to increase lisinopril and resume lasix once creat stable after angiogram. Monitor Input/Output, daily weights and renal function with basic metabolic panel planned for angiogram today, pt will be at increased risk of contrast nephropathy. IVF not indicated due to CHF and current edema (but could hold lasix for now) and continue with statin, given mucormyst 1200 mg bid x 48 hrs. continue with her home dose epogen (hold if Hb>11) and phoslo continue with vit D and oral iron supplementation ID and vascular surgery following Dose meds/antibiotics for reduced GFR. Avoid fleets enema/magnesium based laxatives. Avoid nephrotoxins/NSAIDs/ iodinated contrast (unless needed emergently) Glycemic control Further work up/management as per primary team Thanks for allowing me to participate in care of your patient. Will follow patient with you. Please call if any Qs Dr Juan Torres Office: [phone] Chief Complaint; heel ulcer HPI: Pt is a 67 y/o F with hx of diabetes Mellitus hypertension, CHF, chronic anemia, hyperphos, DVT on coumadin, drpression, obesity, dementia, CVA, CKD ? 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 presented with complaints of non healing ulcer Rt heel. staff helped in creole interpretation. ROS: She Denies chest pain, palpitation, shortness of breath Physical Examination: General Appearance: Comfortable, in no acute respiratory distress, co-operative . obese Vitals reviewed and noted as below Lungs: Normal respiratory rate/effort. Breath sounds bilateral equal and clear Heart: Normal rate. s1s2 normal. No rub or gallop. Extremities: 1-2+ edema. No varicose veins. has chronic venous stasis changes. both feets in dressings. Neurological: Patient is alert, awake and not oriented to person, place or time. No focal deficit. Strength bilateral appropriate and equal Skin: Warm and dry. Normal turgor. No rash. Palpitation: Normal elasticity for age Abdomen: Abdomen is soft. Bowel sounds +. There is no abdominal tenderness, no guarding/rigidity no organomegaly. she is obese, flank and lower abdomen fullness noted. Psych: lack insight MSK: no joint tenderness or swelling. Digits and nails normal, no deformity : kidney or bladder not palpable Labs/imaging/EKG reviewed. Past medical history, past surgical history, family history, social history, allergy reviewed and noted as below Family hx: no hx of CKD. Rest non-contributory Objective - Vital Signs/Intake and Output Vital Signs (last 24 hours): Temp Pulse Resp BP Pulse Ox 98.0 F 82 20 149/84 91 L 05/17/17 08:50 05/17/17 13:47 05/17/17 08:50 05/17/17 08:50 05/17/17 13:47 Intake and Output: 05/17/17 05/17/17 06:59 18:59 Intake Total 200 50 Balance 200 50 - Medications Medications: Current Medications Calcium Acetate (Phoslo) 667 mg PO TID [facility] Last Admin: 05/17/17 13:50 Dose: Not Given Carvedilol (Coreg) 3.125 mg PO BID [facility] Last Admin: 05/17/17 09:29 Dose: 3.125 mg Clopidogrel Bisulfate (Plavix) 75 mg PO DAILY [facility] Last Admin: 05/17/17 09:30 Dose: Not Given Epoetin Etienne (Procrit) 10,000 unit SC MWF [facility] Last Admin: 05/17/17 09:08 Dose: 10,000 unit Ergocalciferol (Drisdol 50,000 Intl Units Cap) 1 cap PO Q7D [facility] Last Admin: 05/14/17 11:45 Dose: 1 cap Ferrous Gluconate (Fergon) 324 mg PO TID [facility] Last Admin: 05/17/17 13:50 Dose: Not Given Fluoxetine HCl (Prozac) 20 mg PO DAILY [facility] Last Admin: 05/17/17 09:36 Dose: 20 mg Hydralazine HCl (Apresoline) 25 mg PO Q4 PRN PRN Reason: Other Piperacillin Sod/Tazobactam Sod (Zosyn 2.25 Gm Iv Premix) 2.25 gm in 50 mls @ 100 mls/hr IVPB Q8H [facility] Last Admin: 05/17/17 10:03 Dose: 100 mls/hr Insulin Aspart (Novolog Mix 70/30 (70/30 Units/Ml)) 0 units SC QID [facility] PRN Reason: Protocol Last Admin: 05/17/17 13:50 Dose: Not Given Insulin Glargine (Lantus) 10 unit SC HS [facility] Last Admin: 05/16/17 21:40 Dose: 10 unit Lactulose (Enulose) 20 gm PO HS [facility] Last Admin: 05/16/17 21:43 Dose: Not Given Lisinopril (Zestril) 10 mg PO DAILY [facility] Last Admin: 05/17/17 09:29 Dose: 10 mg Pantoprazole Sodium (Protonix Ec Tab) 40 mg PO DAILY [facility] Last Admin: 05/17/17 09:30 Dose: 40 mg Rosuvastatin Calcium (Crestor) 10 mg PO HS [facility] Last Admin: 05/16/17 21:38 Dose: 10 mg Sucralfate (Carafate Tab) 1 gm PO BID [facility] Last Admin: 05/17/17 09:30 Dose: 1 gm Vitamin B Complex/Vit C/Folic Acid (Nephro-Naren) 1 tab PO DAILY [facility] Last Admin: 05/17/17 09:36 Dose: 1 tab - Labs Labs: 05/17/17 06:31 05/17/17 06:31 PT 17.0 SECONDS (9.7-12.2) H 05/17/17 06:31 INR 1.5 05/17/17 06:31 APTT 40 SECONDS (21-34) H 05/15/17 11:39
--- NOTE | 2017-05-17 18:39 | CP.PCM.PN ---
Subjective - Date & Time of Evaluation Date of Evaluation: 05/17/17 Time of Evaluation: 09:00 - Subjective Subjective: events noted severe PVD IV antibiotic to cont Objective - Vital Signs/Intake and Output Vital Signs (last 24 hours): Temp Pulse Resp BP Pulse Ox 98.0 F 82 20 149/84 91 L 05/17/17 08:50 05/17/17 13:47 05/17/17 08:50 05/17/17 08:50 05/17/17 13:47 Intake and Output: 05/17/17 05/17/17 06:59 18:59 Intake Total 200 50 Balance 200 50 - Medications Medications: Current Medications Calcium Acetate (Phoslo) 667 mg PO TID [facility] Last Admin: 05/17/17 13:50 Dose: Not Given Carvedilol (Coreg) 3.125 mg PO BID [facility] Last Admin: 05/17/17 09:29 Dose: 3.125 mg Clopidogrel Bisulfate (Plavix) 75 mg PO DAILY [facility] Last Admin: 05/17/17 09:30 Dose: Not Given Epoetin Etienne (Procrit) 10,000 unit SC MWF [facility] Last Admin: 05/17/17 09:08 Dose: 10,000 unit Ergocalciferol (Drisdol 50,000 Intl Units Cap) 1 cap PO Q7D [facility] Last Admin: 05/14/17 11:45 Dose: 1 cap Ferrous Gluconate (Fergon) 324 mg PO TID [facility] Last Admin: 05/17/17 13:50 Dose: Not Given Fluoxetine HCl (Prozac) 20 mg PO DAILY [facility] Last Admin: 05/17/17 09:36 Dose: 20 mg Hydralazine HCl (Apresoline) 25 mg PO Q4 PRN PRN Reason: Other Piperacillin Sod/Tazobactam Sod (Zosyn 2.25 Gm Iv Premix) 2.25 gm in 50 mls @ 100 mls/hr IVPB Q8H [facility] Last Admin: 05/17/17 10:03 Dose: 100 mls/hr Insulin Aspart (Novolog Mix 70/30 (70/30 Units/Ml)) 0 units SC QID [facility] PRN Reason: Protocol Last Admin: 05/17/17 13:50 Dose: Not Given Insulin Glargine (Lantus) 10 unit SC [facility] Last Admin: 05/16/17 21:40 Dose: 10 unit Lactulose (Enulose) 20 gm PO HS [facility] Last Admin: 05/16/17 21:43 Dose: Not Given Lisinopril (Zestril) 10 mg PO DAILY [facility] Last Admin: 05/17/17 09:29 Dose: 10 mg Pantoprazole Sodium (Protonix Ec Tab) 40 mg PO DAILY [facility] Last Admin: 05/17/17 09:30 Dose: 40 mg Rosuvastatin Calcium (Crestor) 10 mg PO HS [facility] Last Admin: 05/16/17 21:38 Dose: 10 mg Sucralfate (Carafate Tab) 1 gm PO BID [facility] Last Admin: 05/17/17 09:30 Dose: 1 gm Vitamin B Complex/Vit C/Folic Acid (Nephro-Naren) 1 tab PO DAILY [facility] Last Admin: 05/17/17 09:36 Dose: 1 tab - Labs Labs: 05/17/17 06:31 05/17/17 06:31 PT 17.0 SECONDS (9.7-12.2) H 05/17/17 06:31 INR 1.5 05/17/17 06:31 APTT 40 SECONDS (21-34) H 05/15/17 11:39 - Constitutional Appears: Non-toxic, Chronically Ill - Head Exam Head Exam: NORMOCEPHALIC - Eye Exam Eye Exam: PERRL - ENT Exam ENT Exam: Mucous Membranes Dry - Neck Exam Neck Exam: absent: Lymphadenopathy - Respiratory Exam Respiratory Exam: Decreased Breath Sounds - Cardiovascular Exam Cardiovascular Exam: REGULAR RHYTHM - GI/Abdominal Exam GI & Abdominal Exam: Distended Assessment and Plan (1) Acute on chronic renal failure Status: Acute (2) Dehydration Status: Acute (3) Diabetic infection of right foot Status: Acute (4) Anemia Status: Acute (5) Chronic heel ulcer Status: Acute
--- NOTE | 2017-05-17 19:25 | CARD ---
APPROVED REPORT EXAM: Two-dimensional and M-mode echocardiogram with Doppler and color Doppler. Other Information Quality : GoodRhythm : INDICATION Systolic Acute Renal Failure RISK FACTORS Hypertension Hyperlipidemia Diabetes 2D DIMENSIONS IVSd1.3 (0.7-1.1cm)LVDd5.7 (3.9-5.9cm) PWd1.3 (0.7-1.1cm)LVDs4.3 (2.5-4.0cm) FS (%) 24.8 %LVEF (%)35.0 (>50%) M-Mode DIMENSIONS Left Atrium (MM)4.49 (2.5-4.0cm)Aortic Root3.42 (2.2-3.7cm) Aortic Cusp Exc.2.21 (1.5-2.0cm) Mitral Valve MV E Yiminvrj944.7cm/sMV A Sasoibjy57.4cm/sE/A ratio2.7 TDI E/Lateral E'0.0E/Medial E'0.0 Tricuspid Valve TR Peak Egrudrct145ae/sTR Peak [id number] LEFT VENTRICLE The left ventricle is normal size. There is normal left ventricular wall thickness. The systolic function is moderately impaired. The left ventricular diastolic function is normal. RIGHT VENTRICLE The right ventricle is normal size. ATRIA The left atrium is mildly dilated. The right atrium size is normal. AORTIC VALVE The aortic valve is normal in structure. MITRAL VALVE Mitral regurgitation is mild. TRICUSPID VALVE There is moderate to severe tricuspid regurgitation. <Conclusion> Moderate LV systolic dysfunction. Dilated LA. Mild MR. Moderate to severe TR.
--- NOTE | 2017-05-17 20:47 | CP.PCM.PN ---
Subjective - Date & Time of Evaluation Date of Evaluation: 05/17/17 Time of Evaluation: 14:30 - Subjective Subjective: Patient seen and evaluated No cardiac events noted Denies chest pain and dyspnea Objective - Vital Signs/Intake and Output Vital Signs (last 24 hours): Temp Pulse Resp BP Pulse Ox 97.5 F L 51 L 20 163/86 H 100 05/17/17 19:00 05/17/17 19:00 05/17/17 19:00 05/17/17 19:00 05/17/17 19:00 Intake and Output: 05/17/17 05/18/17 18:59 06:59 Intake Total 50 Balance 50 - Medications Medications: Current Medications Calcium Acetate (Phoslo) 667 mg PO TID [facility] Last Admin: 05/17/17 19:37 Dose: Not Given Carvedilol (Coreg) 3.125 mg PO BID [facility] Last Admin: 05/17/17 19:37 Dose: Not Given Clopidogrel Bisulfate (Plavix) 75 mg PO DAILY [facility] Last Admin: 05/17/17 09:30 Dose: Not Given Epoetin Etienne (Procrit) 10,000 unit SC MWF [facility] Last Admin: 05/17/17 09:08 Dose: 10,000 unit Ergocalciferol (Drisdol 50,000 Intl Units Cap) 1 cap PO Q7D [facility] Last Admin: 05/14/17 11:45 Dose: 1 cap Ferrous Gluconate (Fergon) 324 mg PO TID [facility] Last Admin: 05/17/17 19:37 Dose: Not Given Fluoxetine HCl (Prozac) 20 mg PO DAILY [facility] Last Admin: 05/17/17 09:36 Dose: 20 mg Hydralazine HCl (Apresoline) 25 mg PO Q4 PRN PRN Reason: Other Piperacillin Sod/Tazobactam Sod (Zosyn 2.25 Gm Iv Premix) 2.25 gm in 50 mls @ 100 mls/hr IVPB Q8H [facility] Last Admin: 05/17/17 19:42 Dose: 100 mls/hr Insulin Aspart (Novolog Mix 70/30 (70/30 Units/Ml)) 0 units SC QID [facility] PRN Reason: Protocol Last Admin: 05/17/17 19:37 Dose: Not Given Insulin Glargine (Lantus) 10 unit SC [facility] Last Admin: 05/16/17 21:40 Dose: 10 unit Lactulose (Enulose) 20 gm PO HS [facility] Last Admin: 05/16/17 21:43 Dose: Not Given Lisinopril (Zestril) 10 mg PO DAILY [facility] Last Admin: 05/17/17 09:29 Dose: 10 mg Pantoprazole Sodium (Protonix Ec Tab) 40 mg PO DAILY [facility] Last Admin: 05/17/17 09:30 Dose: 40 mg Rosuvastatin Calcium (Crestor) 10 mg PO [facility] Last Admin: 05/16/17 21:38 Dose: 10 mg Sucralfate (Carafate Tab) 1 gm PO BID [facility] Last Admin: 05/17/17 19:37 Dose: Not Given Vitamin B Complex/Vit C/Folic Acid (Nephro-Naren) 1 tab PO DAILY [facility] Last Admin: 05/17/17 09:36 Dose: 1 tab - Labs Labs: 05/17/17 06:31 05/17/17 06:31 PT 17.0 SECONDS (9.7-12.2) H 05/17/17 06:31 INR 1.5 05/17/17 06:31 APTT 40 SECONDS (21-34) H 05/15/17 11:39
[2017-05-17] MEDS: (Lantus) Insulin Glargine, Recombinant SC SCH (22:02)
[2017-05-18] MEDS: Piperacill/Tazo 2.25gm in Dex 2.25 GM/50 ML BAG IVPB SCH ×3 (03:08→19:50)
[2017-05-18 07:47] LABS: BASO % 0.4 % (0.0-2.0); EOS # 0.5 K/uL (0.0-0.7); EOS % 6.2 % (0.0-4.0); HEMATOCRIT 35.8 % (34.0-47.0); LYMPH # 1.2 K/uL (1.0-4.3); LYMPH % 14.2 % (20.0-40.0); MEAN CORPUSCULAR HEMOGLOBIN 29.3 pg (27.0-31.0); MEAN CORPUSCULAR HGB CONC 31.5 g/dL (33.0-37.0); MEAN PLATELET VOLUME 9.5 fL (7.2-11.7); MONO # 1.2 K/uL (0.0-0.8); MONO % 14.8 % (0.0-10.0); NRBC % 0.8 % (0.0-2.0); RED CELL DISTRIBUTION WIDTH 18.4 % (11.5-14.5); WHITE BLOOD COUNT 8.1 K/uL (4.8-10.8)
--- NOTE | 2017-05-18 07:50 | CP.PCM.PN ---
Subjective - Date & Time of Evaluation Date of Evaluation: 05/18/17 Time of Evaluation: 07:00 - Subjective Subjective: Vascular Surgery Note for Dr. Romero Patient seen and examined at bedside. No acute event overnight. She is s/p angiogram of bilateral lower extremities POD#1. As per Dr. Romero, Right leg with need eventual BKA while left leg can be revascularized with angioplasty. She is tolerating diet and having BMs. Patient has no complaints today. Objective - Vital Signs/Intake and Output Vital Signs (last 24 hours): Temp Pulse Resp BP Pulse Ox 98.6 F 61 20 176/83 H 100 05/18/17 07:37 05/18/17 07:37 05/18/17 07:37 05/18/17 07:37 05/18/17 07:37 Intake and Output: 05/18/17 05/18/17 06:59 18:59 Intake Total 50 Balance 50 - Medications Medications: Current Medications Calcium Acetate (Phoslo) 667 mg PO TID [facility] Last Admin: 05/17/17 19:37 Dose: Not Given Carvedilol (Coreg) 3.125 mg PO BID [facility] Last Admin: 05/17/17 19:37 Dose: Not Given Clopidogrel Bisulfate (Plavix) 75 mg PO DAILY [facility] Last Admin: 05/17/17 09:30 Dose: Not Given Epoetin Etienne (Procrit) 10,000 unit SC MWF [facility] Last Admin: 05/17/17 09:08 Dose: 10,000 unit Ergocalciferol (Drisdol 50,000 Intl Units Cap) 1 cap PO Q7D [facility] Last Admin: 05/14/17 11:45 Dose: 1 cap Ferrous Gluconate (Fergon) 324 mg PO TID [facility] Last Admin: 05/17/17 19:37 Dose: Not Given Fluoxetine HCl (Prozac) 20 mg PO DAILY [facility] Last Admin: 05/17/17 09:36 Dose: 20 mg Hydralazine HCl (Apresoline) 25 mg PO Q4 PRN PRN Reason: Other Piperacillin Sod/Tazobactam Sod (Zosyn 2.25 Gm Iv Premix) 2.25 gm in 50 mls @ 100 mls/hr IVPB Q8H [facility] Last Admin: 05/18/17 03:08 Dose: 100 mls/hr Insulin Aspart (Novolog Mix 70/30 (70/30 Units/Ml)) 0 units SC QID [facility] PRN Reason: Protocol Last Admin: 05/17/17 19:37 Dose: Not Given Insulin Glargine (Lantus) 10 unit SC [facility] Last Admin: 05/17/17 22:02 Dose: Not Given Lactulose (Enulose) 20 gm PO [facility] Last Admin: 05/17/17 22:00 Dose: Not Given Lisinopril (Zestril) 10 mg PO DAILY [facility] Last Admin: 05/17/17 09:29 Dose: 10 mg Pantoprazole Sodium (Protonix Ec Tab) 40 mg PO DAILY [facility] Last Admin: 05/17/17 09:30 Dose: 40 mg Rosuvastatin Calcium (Crestor) 10 mg PO [facility] Last Admin: 05/17/17 22:00 Dose: Not Given Sucralfate (Carafate Tab) 1 gm PO BID [facility] Last Admin: 05/17/17 19:37 Dose: Not Given Vitamin B Complex/Vit C/Folic Acid (Nephro-Naren) 1 tab PO DAILY [facility] Last Admin: 05/17/17 09:36 Dose: 1 tab - Labs Labs: 05/17/17 06:31 05/17/17 06:31 PT 17.0 SECONDS (9.7-12.2) H 05/17/17 06:31 INR 1.5 05/17/17 06:31 APTT 40 SECONDS (21-34) H 05/15/17 11:39 - Constitutional Appears: No Acute Distress - Head Exam Head Exam: ATRAUMATIC, NORMOCEPHALIC - Eye Exam Eye Exam: Normal appearance - ENT Exam ENT Exam: Mucous Membranes Moist - Respiratory Exam Respiratory Exam: NORMAL BREATHING PATTERN - Cardiovascular Exam Cardiovascular Exam: REGULAR RHYTHM - GI/Abdominal Exam GI & Abdominal Exam: Soft. absent: Tenderness - Extremities Exam Additional comments: Right heel ulcer with foul odor - dressing clean dry and intact left foot dressing clean dry and intact - Back Exam Back Exam: absent: CVA tenderness (L), CVA tenderness (R) - Neurological Exam Neurological Exam: Alert, Awake - Psychiatric Exam Psychiatric exam: Normal Affect, Normal Mood - Skin Skin Exam: Dry, Normal Color, Warm Assessment and Plan - Assessment and Plan (Free Text) Plan: 67 F with Right heel ulcer s/p angiogram POD #1 -Dressing changes as needed -Will plan for angiogram with intervention for left leg next week -Improve renal function -Management as per primary -Discussed with Dr. Heather Short PGY1
[2017-05-18 08:08] LABS: MEAN CELL VOLUME 93.2 fL (81.0-99.0)
[2017-05-18 08:31] LABS: POTASSIUM 4.8 mmol/L (3.6-5.2)
[2017-05-18 08:34] LABS: ALB/GLOB RATIO 1.1 (1.0-2.1); BILIRUBIN,TOTAL 1.1 mg/dL (0.2-1.3); CALCIUM 8.7 mg/dl (8.6-10.4); TOTAL PROTEIN 6.9 g/dL (6.3-8.3)
[2017-05-18] MEDS: Pantoprazole 40 mg EC Tab PO SCH (11:09)
[2017-05-18] MEDS: Multivitamin Vitamin B Complex (Nephro-Vite) Tab PO SCH (11:10)
[2017-05-18] MEDS: (Novolog Mix 70/30) Insulin Aspart/Insulin Aspar 100 units/ml SC SCH ×4 (11:11→22:40)
--- NOTE | 2017-05-18 22:26 | CP.PCM.PN ---
Subjective - Date & Time of Evaluation Date of Evaluation: 05/18/17 Time of Evaluation: 10:40 - Subjective Subjective: Patient with no cardiac events Stress test Saturday Physical examination - Constitutional Appears: Non-toxic, No Acute Distress - Head Exam Head Exam: NORMAL INSPECTION - Eye Exam Eye Exam: EOMI - ENT Exam ENT Exam: Mucous Membranes Moist - Respiratory Exam Respiratory Exam: Clear to Ausculation Bilateral, NORMAL BREATHING PATTERN. absent: Rales, Rhonchi, Wheezes - Cardiovascular Exam Cardiovascular Exam: REGULAR RHYTHM, +S1, +S2. absent: Gallop, Rubs, Murmur - GI/Abdominal Exam GI & Abdominal Exam: Soft, Normal Bowel Sounds. absent: Tenderness - Extremities Exam Extremities Exam: Pedal Edema Additional comments: pitting edema and venous stasis changes to mid calf b/l negative Shiloh's Warm toes b/l Right heel wrapped in clean bandage odorous feet - Neurological Exam Neurological Exam: Alert, Awake, Oriented x3 - Psychiatric Exam Psychiatric exam: Normal Affect, Normal Mood - Skin Skin Exam: Normal Color, Warm Objective - Vital Signs/Intake and Output Vital Signs (last 24 hours): Temp Pulse Resp BP Pulse Ox 98.2 F 66 20 133/74 100 05/18/17 15:00 05/18/17 15:00 05/18/17 15:00 05/18/17 15:00 05/18/17 15:00 Intake and Output: 05/18/17 05/19/17 18:59 06:59 Intake Total 350 Balance 350 - Medications Medications: Current Medications Calcium Acetate (Phoslo) 667 mg PO TIDAC [facility] Last Admin: 05/18/17 17:15 Dose: 667 mg Carvedilol (Coreg) 3.125 mg PO BID [facility] Last Admin: 05/18/17 17:28 Dose: 3.125 mg Clopidogrel Bisulfate (Plavix) 75 mg PO DAILY [facility] Last Admin: 05/18/17 11:10 Dose: 75 mg Epoetin Etienne (Procrit) 10,000 unit SC MWF [facility] Last Admin: 05/17/17 09:08 Dose: 10,000 unit Ergocalciferol (Drisdol 50,000 Intl Units Cap) 1 cap PO Q7D [facility] Last Admin: 05/14/17 11:45 Dose: 1 cap Ferrous Gluconate (Fergon) 324 mg PO TID [facility] Last Admin: 05/18/17 17:38 Dose: 324 mg Fluoxetine HCl (Prozac) 20 mg PO DAILY [facility] Last Admin: 05/18/17 11:10 Dose: 20 mg Hydralazine HCl (Apresoline) 25 mg PO Q4 PRN PRN Reason: Other Piperacillin Sod/Tazobactam Sod (Zosyn 2.25 Gm Iv Premix) 2.25 gm in 50 mls @ 100 mls/hr IVPB Q8H [facility] Last Admin: 05/18/17 19:50 Dose: 100 mls/hr Insulin Aspart (Novolog Mix 70/30 (70/30 Units/Ml)) 0 units SC [facility] PRN Reason: Protocol Last Admin: 05/18/17 17:50 Dose: 2 units Insulin Glargine (Lantus) 10 unit SC [facility] Last Admin: 05/17/17 22:02 Dose: Not Given Lactulose (Enulose) 20 gm PO [facility] Last Admin: 05/18/17 21:22 Dose: 20 gm Lisinopril (Zestril) 10 mg PO DAILY [facility] Last Admin: 05/18/17 11:09 Dose: 10 mg Pantoprazole Sodium (Protonix Ec Tab) 40 mg PO DAILY [facility] Last Admin: 05/18/17 11:09 Dose: 40 mg Rosuvastatin Calcium (Crestor) 10 mg PO [facility] Last Admin: 05/18/17 21:22 Dose: 10 mg Sucralfate (Carafate Tab) 1 gm PO BID [facility] Last Admin: 05/18/17 17:32 Dose: 1 gm Vitamin B Complex/Vit C/Folic Acid (Nephro-Naren) 1 tab PO DAILY [facility] Last Admin: 05/18/17 11:10 Dose: 1 tab - Labs Labs: 05/18/17 07:14 05/18/17 07:14 PT 17.0 SECONDS (9.7-12.2) H 05/17/17 06:31 INR 1.5 05/17/17 06:31 APTT 40 SECONDS (21-34) H 05/15/17 11:39 Assessment and Plan - Assessment and Plan (Free Text) Assessment: Assessment and Plan - Assessment and Plan (Free Text) Assessment: Right Diabetic Heel Ulcer F/U Right foot X ray result Cefepime and Vanco in ER ID consult - Dr. Nunez - f/u recs Vascular Surgery consult - Dr. Romero - f/u recs Wound Care Nurse consult - f/u recs NPO in case of surgery NS @ 60ml/hr Percocet 5/325mg PO Q4H PRN pain Pedal Edema and PVD Stopping Norvasc Starting Lisinopril 10mg PO daily Acute on Chronic ESRD Dailysis [facility] Procrit [facility] Nephrology consult - Dr. Jett - help appreciated Phoslo 667mg PO TID DMII F/U HgbA1C Lantus 10U SC HS Novolog 70/30 ISS H/O CVA Plavix 75mg PO daily H/O PVD with stents Plavix 75mg PO daily Warfarin 5mg PO HS INR 2.4 F/U INR daily H/O CHF Lasix 40mg PO daily No B-kam secondary to bradycardia Starting Lisinopril 10mg PO daily H/O Hyperlipidemia Converting home med of lipitor 20mg PO daily to formulary Depression Prozac 20mg PO daily Prophylaxis Protonix 40mg PO daily Sucralfate Warfarin Plavix All medical management per Dr. Denis
[2017-05-18] MEDS: (Lantus) Insulin Glargine, Recombinant SC SCH (22:40)
[2017-05-19] MEDS: Piperacill/Tazo 2.25gm in Dex 2.25 GM/50 ML BAG IVPB SCH ×3 (02:09→18:55)
[2017-05-19] MEDS: (Novolog Mix 70/30) Insulin Aspart/Insulin Aspar 100 units/ml SC SCH (08:11)
--- NOTE | 2017-05-19 08:39 | CP.PCM.PN ---
Subjective - Date & Time of Evaluation Date of Evaluation: 05/19/17 Time of Evaluation: 07:10 - Subjective Subjective: Vascular Surgery Note for Dr. Romero Patient seen and examined at bedside. No acute event overnight. She is s/p angiogram of bilateral lower extremities POD#2. She is tolerating diet and having BMs. Patient has no complaints today. Objective - Vital Signs/Intake and Output Vital Signs (last 24 hours): Temp Pulse Resp BP Pulse Ox 98 F 68 20 136/78 97 05/19/17 07:43 05/19/17 07:43 05/19/17 07:43 05/19/17 07:43 05/19/17 07:43 Intake and Output: 05/19/17 05/19/17 06:59 18:59 Intake Total 640 Balance 640 - Medications Medications: Current Medications Calcium Acetate (Phoslo) 667 mg PO TIDAC [facility] Last Admin: 05/19/17 08:34 Dose: 667 mg Carvedilol (Coreg) 3.125 mg PO BID [facility] Last Admin: 05/18/17 17:28 Dose: 3.125 mg Clopidogrel Bisulfate (Plavix) 75 mg PO DAILY [facility] Last Admin: 05/18/17 11:10 Dose: 75 mg Epoetin Etienne (Procrit) 10,000 unit SC MWF [facility] Last Admin: 05/17/17 09:08 Dose: 10,000 unit Ergocalciferol (Drisdol 50,000 Intl Units Cap) 1 cap PO Q7D [facility] Last Admin: 05/14/17 11:45 Dose: 1 cap Ferrous Gluconate (Fergon) 324 mg PO TID [facility] Last Admin: 05/18/17 17:38 Dose: 324 mg Fluoxetine HCl (Prozac) 20 mg PO DAILY [facility] Last Admin: 05/18/17 11:10 Dose: 20 mg Hydralazine HCl (Apresoline) 25 mg PO Q4 PRN PRN Reason: Other Piperacillin Sod/Tazobactam Sod (Zosyn 2.25 Gm Iv Premix) 2.25 gm in 50 mls @ 100 mls/hr IVPB Q8H [facility] Last Admin: 05/19/17 02:09 Dose: 100 mls/hr Insulin Aspart (Novolog Mix 70/30 (70/30 Units/Ml)) 0 units SC [facility] PRN Reason: Protocol Last Admin: 05/19/17 08:11 Dose: Not Given Insulin Glargine (Lantus) 10 unit SC [facility] Last Admin: 05/18/17 22:40 Dose: Not Given Lactulose (Enulose) 20 gm PO HS [facility] Last Admin: 05/18/17 21:22 Dose: 20 gm Lisinopril (Zestril) 10 mg PO DAILY [facility] Last Admin: 05/18/17 11:09 Dose: 10 mg Pantoprazole Sodium (Protonix Ec Tab) 40 mg PO DAILY [facility] Last Admin: 05/18/17 11:09 Dose: 40 mg Rosuvastatin Calcium (Crestor) 10 mg PO [facility] Last Admin: 05/18/17 21:22 Dose: 10 mg Sucralfate (Carafate Tab) 1 gm PO BID [facility] Last Admin: 05/18/17 17:32 Dose: 1 gm Vitamin B Complex/Vit C/Folic Acid (Nephro-Naren) 1 tab PO DAILY [facility] Last Admin: 05/18/17 11:10 Dose: 1 tab - Labs Labs: 05/18/17 07:14 05/18/17 07:14 PT 17.0 SECONDS (9.7-12.2) H 05/17/17 06:31 INR 1.5 05/17/17 06:31 APTT 40 SECONDS (21-34) H 05/15/17 11:39 - Constitutional Appears: No Acute Distress - Head Exam Head Exam: ATRAUMATIC, NORMOCEPHALIC - Eye Exam Eye Exam: Normal appearance - ENT Exam ENT Exam: Mucous Membranes Moist - Respiratory Exam Respiratory Exam: NORMAL BREATHING PATTERN - Cardiovascular Exam Cardiovascular Exam: REGULAR RHYTHM - Extremities Exam Additional comments: Right heel ulcer with foul odor - dressing clean dry and intact left foot dressing clean dry and intact - Neurological Exam Neurological Exam: Alert, Awake, Oriented x3 - Psychiatric Exam Psychiatric exam: Normal Affect, Normal Mood - Skin Skin Exam: Dry, Warm Assessment and Plan - Assessment and Plan (Free Text) Plan: 67 F with Right heel ulcer s/p angiogram POD #2 -Will plan for angiogram with intervention for left leg this week -Management as per primary -Discussed with Dr. Heather Short PGY1
[2017-05-19 09:14] LABS: BASO % 0.2 % (0.0-2.0); EOS # 0.2 K/uL (0.0-0.7); HEMATOCRIT 29.3 % (34.0-47.0); LYMPH # 0.8 K/uL (1.0-4.3); LYMPH % 10.4 % (20.0-40.0); MEAN CELL VOLUME 93.8 fL (81.0-99.0); MEAN CORPUSCULAR HEMOGLOBIN 29.3 pg (27.0-31.0); MEAN CORPUSCULAR HGB CONC 31.2 g/dL (33.0-37.0); MEAN PLATELET VOLUME 9.6 fL (7.2-11.7); MONO # 0.9 K/uL (0.0-0.8); MONO % 10.6 % (0.0-10.0); NRBC % 1.2 % (0.0-2.0); RED CELL DISTRIBUTION WIDTH 18.1 % (11.5-14.5); WHITE BLOOD COUNT 8.1 K/uL (4.8-10.8)
[2017-05-19 09:31] LABS: ALB/GLOB RATIO 0.8 (1.0-2.1); BILIRUBIN,TOTAL 0.6 mg/dL (0.2-1.3); TOTAL PROTEIN 7.3 g/dL (6.3-8.3)
[2017-05-19 09:32] LABS: CALCIUM 8.3 mg/dl (8.6-10.4)
[2017-05-19] MEDS: Multivitamin Vitamin B Complex (Nephro-Vite) Tab PO SCH (10:29)
[2017-05-19] MEDS: Pantoprazole 40 mg EC Tab PO SCH (10:29)
[2017-05-19] MEDS: (Novolog) Insulin Aspart, Recombinant 100 u/ml 10 ml vial SC SCH ×3 (13:46→21:43)
--- NOTE | 2017-05-19 15:52 | CP.PCM.PN ---
Subjective - Date & Time of Evaluation Date of Evaluation: 05/19/17 Time of Evaluation: 09:00 - Subjective Subjective: for angio and intervention with vascular once cleared by dr Ledesma IV rx renewed for OM right heel Objective - Vital Signs/Intake and Output Vital Signs (last 24 hours): Temp Pulse Resp BP Pulse Ox 98 F 68 20 136/78 97 05/19/17 07:43 05/19/17 07:43 05/19/17 07:43 05/19/17 07:43 05/19/17 07:43 Intake and Output: 05/19/17 05/19/17 06:59 18:59 Intake Total 640 Balance 640 - Medications Medications: Current Medications Calcium Acetate (Phoslo) 667 mg PO TIDAC [facility] Last Admin: 05/19/17 13:43 Dose: 667 mg Carvedilol (Coreg) 3.125 mg PO BID [facility] Last Admin: 05/19/17 10:29 Dose: 3.125 mg Clopidogrel Bisulfate (Plavix) 75 mg PO DAILY [facility] Last Admin: 05/19/17 10:29 Dose: 75 mg Epoetin Etienne (Procrit) 10,000 unit SC MWF [facility] Last Admin: 05/17/17 09:08 Dose: 10,000 unit Ergocalciferol (Drisdol 50,000 Intl Units Cap) 1 cap PO Q7D [facility] Last Admin: 05/14/17 11:45 Dose: 1 cap Ferrous Gluconate (Fergon) 324 mg PO TID [facility] Last Admin: 05/19/17 13:43 Dose: 324 mg Fluoxetine HCl (Prozac) 20 mg PO DAILY [facility] Last Admin: 05/19/17 10:29 Dose: 20 mg Hydralazine HCl (Apresoline) 25 mg PO Q4 PRN PRN Reason: Other Piperacillin Sod/Tazobactam Sod (Zosyn 2.25 Gm Iv Premix) 2.25 gm in 50 mls @ 100 mls/hr IVPB Q8H [facility] Last Admin: 05/19/17 10:27 Dose: 100 mls/hr Insulin Aspart (Novolog) 0 unit SC ACHS [facility] PRN Reason: Protocol Last Admin: 05/19/17 13:46 Dose: 3 unit Insulin Glargine (Lantus) 10 unit SC HS [facility] Last Admin: 05/18/17 22:40 Dose: Not Given Lactulose (Enulose) 20 gm PO HS [facility] Last Admin: 05/18/17 21:22 Dose: 20 gm Lisinopril (Zestril) 10 mg PO DAILY [facility] Last Admin: 05/19/17 10:29 Dose: 10 mg Pantoprazole Sodium (Protonix Ec Tab) 40 mg PO DAILY [facility] Last Admin: 05/19/17 10:29 Dose: 40 mg Rosuvastatin Calcium (Crestor) 10 mg PO HS [facility] Last Admin: 05/18/17 21:22 Dose: 10 mg Sucralfate (Carafate Tab) 1 gm PO BID [facility] Last Admin: 05/19/17 10:29 Dose: 1 gm Vitamin B Complex/Vit C/Folic Acid (Nephro-Naren) 1 tab PO DAILY [facility] Last Admin: 05/19/17 10:29 Dose: 1 tab - Labs Labs: 05/19/17 09:06 05/19/17 09:06 PT 17.0 SECONDS (9.7-12.2) H 05/17/17 06:31 INR 1.5 05/17/17 06:31 APTT 40 SECONDS (21-34) H 05/15/17 11:39 - Constitutional Appears: Non-toxic, Chronically Ill - Head Exam Head Exam: NORMOCEPHALIC - Eye Exam Eye Exam: PERRL - ENT Exam ENT Exam: Mucous Membranes Dry - Neck Exam Neck Exam: absent: Lymphadenopathy - Respiratory Exam Respiratory Exam: Decreased Breath Sounds - GI/Abdominal Exam GI & Abdominal Exam: Distended, Soft - Rectal Exam Rectal Exam: Deferred - Exam Exam: NORMAL INSPECTION - Extremities Exam Extremities Exam: absent: Pedal Edema - Back Exam Back Exam: absent: CVA tenderness (L), CVA tenderness (R) - Neurological Exam Neurological Exam: Alert, Awake, CN II-XII Intact, Oriented x3 Assessment and Plan (1) Acute on chronic renal failure Status: Acute (2) Dehydration Status: Acute (3) Diabetic infection of right foot Status: Acute (4) Anemia Status: Acute (5) Chronic heel ulcer Status: Acute
[2017-05-19] MEDS ORDERED: (Novolog) Insulin Aspart, Recombinant 100 u/ml 10 ml vial SC SCH (16:30)
--- NOTE | 2017-05-19 18:03 | CP.PCM.PN ---
Subjective - Date & Time of Evaluation Date of Evaluation: 05/19/17 Time of Evaluation: 15:00 - Subjective Subjective: Patient seen and evaluated denies chest pain and dyspnea For stress test in am Physical examination - Constitutional Appears: Non-toxic, No Acute Distress - Head Exam Head Exam: NORMAL INSPECTION - Eye Exam Eye Exam: EOMI - ENT Exam ENT Exam: Mucous Membranes Moist - Respiratory Exam Respiratory Exam: Clear to Ausculation Bilateral, NORMAL BREATHING PATTERN. absent: Rales, Rhonchi, Wheezes - Cardiovascular Exam Cardiovascular Exam: REGULAR RHYTHM, +S1, +S2. absent: Gallop, Rubs, Murmur - GI/Abdominal Exam GI & Abdominal Exam: Soft, Normal Bowel Sounds. absent: Tenderness - Extremities Exam Extremities Exam: Pedal Edema Additional comments: pitting edema and venous stasis changes to mid calf b/l negative Shiloh's Warm toes b/l Right heel wrapped in clean bandage odorous feet - Neurological Exam Neurological Exam: Alert, Awake, Oriented x3 - Psychiatric Exam Psychiatric exam: Normal Affect, Normal Mood - Skin Skin Exam: Normal Color, Warm Objective - Vital Signs/Intake and Output Vital Signs (last 24 hours): Temp Pulse Resp BP Pulse Ox 97.7 F 64 20 133/70 99 05/19/17 15:00 05/19/17 15:00 05/19/17 15:00 05/19/17 15:00 05/19/17 15:00 Intake and Output: 05/19/17 05/19/17 06:59 18:59 Intake Total 640 350 Balance 640 350 - Medications Medications: Current Medications Calcium Acetate (Phoslo) 667 mg PO TIDAC [facility] Last Admin: 05/19/17 17:10 Dose: 667 mg Carvedilol (Coreg) 3.125 mg PO BID [facility] Last Admin: 05/19/17 17:51 Dose: 3.125 mg Clopidogrel Bisulfate (Plavix) 75 mg PO DAILY [facility] Last Admin: 05/19/17 10:29 Dose: 75 mg Epoetin Etienne (Procrit) 10,000 unit SC MWF [facility] Last Admin: 05/17/17 09:08 Dose: 10,000 unit Ergocalciferol (Drisdol 50,000 Intl Units Cap) 1 cap PO Q7D [facility] Last Admin: 05/14/17 11:45 Dose: 1 cap Ferrous Gluconate (Fergon) 324 mg PO TID [facility] Last Admin: 05/19/17 17:52 Dose: 324 mg Fluoxetine HCl (Prozac) 20 mg PO DAILY [facility] Last Admin: 05/19/17 10:29 Dose: 20 mg Hydralazine HCl (Apresoline) 25 mg PO Q4 PRN PRN Reason: Other Piperacillin Sod/Tazobactam Sod (Zosyn 2.25 Gm Iv Premix) 2.25 gm in 50 mls @ 100 mls/hr IVPB Q8H [facility] Last Admin: 05/19/17 10:27 Dose: 100 mls/hr Insulin Aspart (Novolog) 0 unit SC [facility] PRN Reason: Protocol Last Admin: 05/19/17 17:10 Dose: 2 unit Insulin Glargine (Lantus) 10 unit SC [facility] Last Admin: 05/18/17 22:40 Dose: Not Given Lactulose (Enulose) 20 gm PO HS [facility] Last Admin: 05/18/17 21:22 Dose: 20 gm Lisinopril (Zestril) 10 mg PO DAILY [facility] Last Admin: 05/19/17 10:29 Dose: 10 mg Pantoprazole Sodium (Protonix Ec Tab) 40 mg PO DAILY [facility] Last Admin: 05/19/17 10:29 Dose: 40 mg Rosuvastatin Calcium (Crestor) 10 mg PO HS [facility] Last Admin: 05/18/17 21:22 Dose: 10 mg Sucralfate (Carafate Tab) 1 gm PO BID [facility] Last Admin: 05/19/17 17:51 Dose: 1 gm Vitamin B Complex/Vit C/Folic Acid (Nephro-Naren) 1 tab PO DAILY [facility] Last Admin: 05/19/17 10:29 Dose: 1 tab - Labs Labs: 05/19/17 09:06 05/19/17 09:06 PT 17.0 SECONDS (9.7-12.2) H 05/17/17 06:31 INR 1.5 05/17/17 06:31 APTT 40 SECONDS (21-34) H 05/15/17 11:39 Assessment and Plan - Assessment and Plan (Free Text) Assessment: Assessment and Plan - Assessment and Plan (Free Text) Assessment: Right Diabetic Heel Ulcer F/U Right foot X ray result Cefepime and Vanco in ER ID consult - Dr. Nunez - f/u recs Vascular Surgery consult - Dr. Romero - f/u recs Wound Care Nurse consult - f/u recs NPO in case of surgery NS @ 60ml/hr Percocet 5/325mg PO Q4H PRN pain Pedal Edema and PVD Stopping Norvasc Starting Lisinopril 10mg PO daily Acute on Chronic ESRD Dailysis [facility] Procrit [facility] Nephrology consult - Dr. Jett - help appreciated Phoslo 667mg PO TID DMII F/U HgbA1C Lantus 10U SC HS Novolog 70/30 ISS H/O CVA Plavix 75mg PO daily H/O PVD with stents Plavix 75mg PO daily Warfarin 5mg PO HS INR 2.4 F/U INR daily H/O CHF Lasix 40mg PO daily No B-kam secondary to bradycardia Starting Lisinopril 10mg PO daily H/O Hyperlipidemia Converting home med of lipitor 20mg PO daily to formulary Depression Prozac 20mg PO daily Prophylaxis Protonix 40mg PO daily Sucralfate Warfarin Plavix
[2017-05-19] MEDS: (Lantus) Insulin Glargine, Recombinant SC SCH (21:42)
[2017-05-20] MEDS: Piperacill/Tazo 2.25gm in Dex 2.25 GM/50 ML BAG IVPB SCH ×3 (02:14→18:49)
[2017-05-20] MEDS ORDERED: Aminophylline 25 mg/ml Inj ONE (07:20)
[2017-05-20] MEDS: (Novolog) Insulin Aspart, Recombinant 100 u/ml 10 ml vial SC SCH ×4 (08:10→21:50)
[2017-05-20 08:25] LABS: BILIRUBIN,TOTAL 0.8 mg/dL (0.2-1.3)
[2017-05-20 08:26] LABS: ALB/GLOB RATIO 1.1 (1.0-2.1); CALCIUM 7.8 mg/dl (8.6-10.4); MAGNESIUM 1.9 mg/dL (1.6-2.3); PHOSPHOROUS 5.2 mg/dL (2.5-4.5); TOTAL PROTEIN 6.4 g/dL (6.3-8.3)
[2017-05-20 08:33] LABS: POTASSIUM 5.4 mmol/L (3.6-5.2)
[2017-05-20 08:52] LABS: BASO # 0.1 K/uL (0.0-0.2); EOS # 0.3 K/uL (0.0-0.7); EOS % 3.9 % (0.0-4.0); HEMATOCRIT 29.5 % (34.0-47.0); LYMPH # 1.1 K/uL (1.0-4.3); LYMPH % 13.9 % (20.0-40.0); MEAN CELL VOLUME 94.5 fL (81.0-99.0); MEAN CORPUSCULAR HEMOGLOBIN 29.4 pg (27.0-31.0); MEAN CORPUSCULAR HGB CONC 31.1 g/dL (33.0-37.0); MEAN PLATELET VOLUME 9.6 fL (7.2-11.7); MONO # 0.9 K/uL (0.0-0.8); MONO % 12.1 % (0.0-10.0); NRBC % 0.9 % (0.0-2.0); RED CELL DISTRIBUTION WIDTH 18.6 % (11.5-14.5); WHITE BLOOD COUNT 7.7 K/uL (4.8-10.8)
[2017-05-20] MEDS ORDERED: Sod Polystyrene Sulf 15 gm/60 ml Susp PO ONE (10:21)
[2017-05-20] MEDS: Epoetin Alfa 10,000 unit/ml Dialysis SC SCH (10:46)
[2017-05-20] MEDS: Multivitamin Vitamin B Complex (Nephro-Vite) Tab PO SCH (10:46)
[2017-05-20] MEDS: Pantoprazole 40 mg EC Tab PO SCH (10:47)
--- NOTE | 2017-05-20 11:38 | CP.PCM.PN ---
Subjective - Date & Time of Evaluation Date of Evaluation: 05/20/17 Time of Evaluation: 11:30 - Subjective Subjective: Progress note. Attending: Dr. Denis Pt seen and examined at bedside. No acute distress. No events overnight. Pt going for procedure today. No fevers, chills, vomiting, diarrhea. Objective - Vital Signs/Intake and Output Vital Signs (last 24 hours): Temp Pulse Resp BP Pulse Ox 98.3 F 64 20 130/74 99 05/20/17 00:00 05/20/17 00:00 05/20/17 00:00 05/20/17 00:00 05/20/17 00:00 Intake and Output: 05/20/17 05/20/17 06:59 18:59 Intake Total 300 50 Balance 300 50 - Medications Medications: Current Medications Calcium Acetate (Phoslo) 667 mg PO TIDAC [facility] Last Admin: 05/20/17 08:10 Dose: Not Given Carvedilol (Coreg) 3.125 mg PO BID [facility] Last Admin: 05/20/17 10:46 Dose: Not Given Clopidogrel Bisulfate (Plavix) 75 mg PO DAILY [facility] Last Admin: 05/20/17 10:46 Dose: Not Given Epoetin Etienne (Procrit) 10,000 unit SC MWF [facility] Last Admin: 05/20/17 10:46 Dose: Not Given Ergocalciferol (Drisdol 50,000 Intl Units Cap) 1 cap PO Q7D [facility] Last Admin: 05/14/17 11:45 Dose: 1 cap Ferrous Gluconate (Fergon) 324 mg PO TID [facility] Last Admin: 05/20/17 10:46 Dose: Not Given Fluoxetine HCl (Prozac) 20 mg PO DAILY [facility] Last Admin: 05/20/17 10:47 Dose: Not Given Hydralazine HCl (Apresoline) 25 mg PO Q4 PRN PRN Reason: Other Piperacillin Sod/Tazobactam Sod (Zosyn 2.25 Gm Iv Premix) 2.25 gm in 50 mls @ 100 mls/hr IVPB Q8H [facility] Last Admin: 05/20/17 02:14 Dose: 100 mls/hr Insulin Aspart (Novolog) 0 unit SC ACHS [facility] PRN Reason: Protocol Last Admin: 05/20/17 08:10 Dose: Not Given Insulin Glargine (Lantus) 10 unit SC [facility] Last Admin: 05/19/17 21:42 Dose: Not Given Lactulose (Enulose) 20 gm PO [facility] Last Admin: 05/19/17 21:41 Dose: 20 gm Pantoprazole Sodium (Protonix Ec Tab) 40 mg PO DAILY [facility] Last Admin: 05/20/17 10:47 Dose: Not Given Rosuvastatin Calcium (Crestor) 10 mg PO [facility] Last Admin: 05/19/17 21:41 Dose: 10 mg Sucralfate (Carafate Tab) 1 gm PO BID [facility] Last Admin: 05/20/17 10:46 Dose: Not Given Vitamin B Complex/Vit C/Folic Acid (Nephro-Naren) 1 tab PO DAILY [facility] Last Admin: 05/20/17 10:46 Dose: Not Given - Labs Labs: 05/20/17 07:57 05/20/17 07:57 PT 17.0 SECONDS (9.7-12.2) H 05/17/17 06:31 INR 1.5 05/17/17 06:31 APTT 40 SECONDS (21-34) H 05/15/17 11:39 - Constitutional Appears: Non-toxic, No Acute Distress - Head Exam Head Exam: ATRAUMATIC, NORMAL INSPECTION, NORMOCEPHALIC - Eye Exam Eye Exam: EOMI - ENT Exam ENT Exam: Mucous Membranes Moist - Neck Exam Neck Exam: Full ROM, Normal Inspection - Respiratory Exam Respiratory Exam: NORMAL BREATHING PATTERN. absent: Respiratory Distress - Cardiovascular Exam Cardiovascular Exam: +S1, +S2 - GI/Abdominal Exam GI & Abdominal Exam: Soft, Normal Bowel Sounds. absent: Tenderness - Extremities Exam Extremities Exam: absent: Full ROM, Normal Inspection - Back Exam Back Exam: NORMAL INSPECTION - Neurological Exam Neurological Exam: Alert, Awake, Oriented x3 - Psychiatric Exam Psychiatric exam: Normal Affect, Normal Mood - Skin Skin Exam: Dry, Intact, Normal Color, Warm Assessment and Plan - Assessment and Plan (Free Text) Assessment: 1. Right Diabetic Heel Ulcer -Right foot X ray shows no evidence of osteomyelitis -Cefepime and vancomycin given in ER -ID consult - Dr. Nunez - recs appreciated. - Zosyn 2.25gm IV q8h (started on 05/13) and Vanco 1gm IV MWF (start on 05/15) -Vascular Surgery consult - Dr. Romero - f/u recs - Wound Care Nurse consult - f/u recs -Percocet 5/325mg PO Q4H PRN pain -05/13 right ankle wound culture POSITIVE for proteus and staph aureus -Blood culture + coag neg staph aureus -cardio consult. Dr. Ledesma. recs that patient may go ahead with angiogram. recommendation appreciated. -ECHO shows moderate LV dysfunction -severe tricuspid regurgitation -plan for angioplasty today 2. Pedal Edema and PVD -amlodipine has been discontinued -Chronic. f/u vascular surgery recs -keep legs elevated 3. Hx of HTN -BP elevated -Lisinopril 10mg PO daily -Lasix 40mg PO daily -low dose coreg 3.125 mg PO BID (monitor for bradycardia) -Monitor vitals q4h 4. Acute on Chronic Kidney Disease -[facility] -Nephrology consult - Dr. Torres - help appreciated -Phoslo 667mg PO TID -Avoid nephrotoxins/NSAIDs/ iodinated contrast (unless needed emergently) -urine studies ordered 5. DMII -HgbA1C 10.3 -Lantus 10U SC HS -Novolog 70/30 ISS -Accuchecks 6. Anemia -normocytic -Likely secondary to chronic kidney disease -Iron 30, TIBC 373, % sat 8, ferritin 42 Continue [facility] -Monitor CBC daily -continue ferrous gluconate 324 tid 7. H/O CVA -Plavix 75mg PO daily -PT evaluation- recommend TROY upon discharge -Fall risk protocol 8. H/O PVD with stents -Plavix 75mg PO daily -F/U INR daily 9. H/O CHF -Lasix 40mg PO daily -Low dose coreg 3.125mg PO BID (monitor for bradycardia) -Lisinopril 10mg PO daily 10. H/O Hyperlipidemia -continue crestor 10 mg PO HS 11. Depression -Prozac 20mg PO daily -Denies suicidal/homicidal ideations at this time 12. Vitamin D deficiency -Vit D 20.8 -continue Ergocalciferol 50,000u qweekly 13. Prophylaxis -Protonix 40mg PO daily -Sucralfate -Warfarin held -Plavix held Discussed with Dr. Denis
--- NOTE | 2017-05-20 15:33 | CP.PCM.PN ---
Subjective - Date & Time of Evaluation Date of Evaluation: 05/20/17 Time of Evaluation: 15:31 - Subjective Subjective: Follow up Nephrology Consultation: Assessment: Stable Acute Kidney Injury likely contrast nephropathy Non-healing ulcer on heel with celluliits Diabetic chronic Kidney Disease (E11.22) Hypertensive Chronic Kidney Disease (I12.9) Chronic Kidney Disease (N18.4) Stage 4 with ? mg proteinuria (R80.9) possibly due to DM and or HTN Anemia (D64.9), Hyperphosphatemia (E83.39), HTN (I12.9) CHF, obesity, PVD, depression Plan No acute need for renal replacement therapy at this time. continue to monitor for renal function closely. Hypertension control with meds as ordered. continue with low dose coreg. hold lisinopril/lasix for now due to TRINITY Monitor Input/Output, daily weights and renal function with basic metabolic panel continue with her home dose epogen (hold if Hb>11) and phoslo continue with vit D and oral iron supplementation ID and vascular surgery following Dose meds/antibiotics for reduced GFR. Avoid fleets enema/magnesium based laxatives. Avoid nephrotoxins/NSAIDs/ iodinated contrast (unless needed emergently) Glycemic control Further work up/management as per primary team Thanks for allowing me to participate in care of your patient. Will follow patient with you. Please call if any Qs Dr Juan Torres Office: [phone] Chief Complaint; heel ulcer HPI: Pt is a 67 y/o F with hx of diabetes Mellitus hypertension, CHF, chronic anemia, hyperphos, DVT on coumadin, drpression, obesity, dementia, CVA, CKD ? 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 staff helped in creole interpretation. ROS: She Denies chest pain, palpitation, shortness of breath Physical Examination: General Appearance: Comfortable, in no acute respiratory distress, co-operative . obese Vitals reviewed and noted as below Lungs: Normal respiratory rate/effort. Breath sounds bilateral equal and clear Heart: Normal rate. s1s2 normal. No rub or gallop. Extremities: 1-2+ edema. No varicose veins. has chronic venous stasis changes. both feets in dressings. Neurological: Patient is alert, awake and not oriented to person, place or time. No focal deficit. Strength bilateral appropriate and equal Skin: Warm and dry. Normal turgor. No rash. Palpitation: Normal elasticity for age Abdomen: Abdomen is soft. Bowel sounds +. There is no abdominal tenderness, no guarding/rigidity no organomegaly. she is obese, flank and lower abdomen fullness noted. Psych: lack insight MSK: no joint tenderness or swelling. Digits and nails normal, no deformity : kidney or bladder not palpable Labs/imaging/EKG reviewed. Past medical history, past surgical history, family history, social history, allergy reviewed and noted as below Family hx: no hx of CKD. Rest non-contributory Objective - Vital Signs/Intake and Output Vital Signs (last 24 hours): Temp Pulse Resp BP Pulse Ox 98.3 F 64 20 130/74 99 05/20/17 00:00 05/20/17 00:00 05/20/17 00:00 05/20/17 00:00 05/20/17 00:00 Intake and Output: 05/20/17 05/20/17 06:59 18:59 Intake Total 300 50 Balance 300 50 - Medications Medications: Current Medications Calcium Acetate (Phoslo) 667 mg PO TIDAC [facility] Last Admin: 05/20/17 11:30 Dose: Not Given Carvedilol (Coreg) 3.125 mg PO BID [facility] Last Admin: 05/20/17 10:46 Dose: Not Given Clopidogrel Bisulfate (Plavix) 75 mg PO DAILY [facility] Last Admin: 05/20/17 10:46 Dose: Not Given Epoetin Etienne (Procrit) 10,000 unit SC MWF [facility] Last Admin: 05/20/17 10:46 Dose: Not Given Ergocalciferol (Drisdol 50,000 Intl Units Cap) 1 cap PO Q7D [facility] Last Admin: 05/14/17 11:45 Dose: 1 cap Ferrous Gluconate (Fergon) 324 mg PO TID [facility] Last Admin: 05/20/17 13:06 Dose: Not Given Fluoxetine HCl (Prozac) 20 mg PO DAILY [facility] Last Admin: 05/20/17 10:47 Dose: Not Given Hydralazine HCl (Apresoline) 25 mg PO Q4 PRN PRN Reason: Other Piperacillin Sod/Tazobactam Sod (Zosyn 2.25 Gm Iv Premix) 2.25 gm in 50 mls @ 100 mls/hr IVPB Q8H [facility] Last Admin: 05/20/17 11:00 Dose: Not Given Insulin Aspart (Novolog) 0 unit SC [facility] PRN Reason: Protocol Last Admin: 05/20/17 11:30 Dose: Not Given Insulin Glargine (Lantus) 10 unit SC [facility] Last Admin: 05/19/17 21:42 Dose: Not Given Lactulose (Enulose) 20 gm PO [facility] Last Admin: 05/19/17 21:41 Dose: 20 gm Pantoprazole Sodium (Protonix Ec Tab) 40 mg PO DAILY [facility] Last Admin: 05/20/17 10:47 Dose: Not Given Rosuvastatin Calcium (Crestor) 10 mg PO [facility] Last Admin: 05/19/17 21:41 Dose: 10 mg Sucralfate (Carafate Tab) 1 gm PO BID [facility] Last Admin: 05/20/17 10:46 Dose: Not Given Vitamin B Complex/Vit C/Folic Acid (Nephro-Naren) 1 tab PO DAILY [facility] Last Admin: 05/20/17 10:46 Dose: Not Given - Labs Labs: 05/20/17 07:57 05/20/17 07:57 PT 17.0 SECONDS (9.7-12.2) H 05/17/17 06:31 INR 1.5 05/17/17 06:31 APTT 40 SECONDS (21-34) H 05/15/17 11:39
--- NOTE | 2017-05-20 16:23 | CP.PCM.PN ---
Subjective - Date & Time of Evaluation Date of Evaluation: 05/20/17 Time of Evaluation: 07:15 - Subjective Subjective: Vascular Surgery Note for Dr. Romero Patient seen and examined at bedside. No acute event overnight. She is resting in bed comfortably. She is tolerating diet and having BMs. No complaints at this time. Objective - Vital Signs/Intake and Output Vital Signs (last 24 hours): Temp Pulse Resp BP Pulse Ox 98.3 F 64 20 130/74 99 05/20/17 00:00 05/20/17 00:00 05/20/17 00:00 05/20/17 00:00 05/20/17 00:00 Intake and Output: 05/20/17 05/20/17 06:59 18:59 Intake Total 300 50 Balance 300 50 - Medications Medications: Current Medications Calcium Acetate (Phoslo) 667 mg PO TIDAC [facility] Last Admin: 05/20/17 11:30 Dose: Not Given Carvedilol (Coreg) 3.125 mg PO BID [facility] Last Admin: 05/20/17 10:46 Dose: Not Given Clopidogrel Bisulfate (Plavix) 75 mg PO DAILY [facility] Last Admin: 05/20/17 10:46 Dose: Not Given Epoetin Etienne (Procrit) 10,000 unit SC MWF [facility] Last Admin: 05/20/17 10:46 Dose: Not Given Ergocalciferol (Drisdol 50,000 Intl Units Cap) 1 cap PO Q7D [facility] Last Admin: 05/14/17 11:45 Dose: 1 cap Ferrous Gluconate (Fergon) 324 mg PO TID [facility] Last Admin: 05/20/17 13:06 Dose: Not Given Fluoxetine HCl (Prozac) 20 mg PO DAILY [facility] Last Admin: 05/20/17 10:47 Dose: Not Given Hydralazine HCl (Apresoline) 25 mg PO Q4 PRN PRN Reason: Other Piperacillin Sod/Tazobactam Sod (Zosyn 2.25 Gm Iv Premix) 2.25 gm in 50 mls @ 100 mls/hr IVPB Q8H [facility] Last Admin: 05/20/17 11:00 Dose: Not Given Insulin Aspart (Novolog) 0 unit SC ACHS [facility] PRN Reason: Protocol Last Admin: 05/20/17 11:30 Dose: Not Given Insulin Glargine (Lantus) 10 unit SC [facility] Last Admin: 05/19/17 21:42 Dose: Not Given Lactulose (Enulose) 20 gm PO [facility] Last Admin: 05/19/17 21:41 Dose: 20 gm Pantoprazole Sodium (Protonix Ec Tab) 40 mg PO DAILY [facility] Last Admin: 05/20/17 10:47 Dose: Not Given Rosuvastatin Calcium (Crestor) 10 mg PO [facility] Last Admin: 05/19/17 21:41 Dose: 10 mg Sucralfate (Carafate Tab) 1 gm PO BID [facility] Last Admin: 05/20/17 10:46 Dose: Not Given Vitamin B Complex/Vit C/Folic Acid (Nephro-Naren) 1 tab PO DAILY [facility] Last Admin: 05/20/17 10:46 Dose: Not Given - Labs Labs: 05/20/17 07:57 05/20/17 07:57 PT 17.0 SECONDS (9.7-12.2) H 05/17/17 06:31 INR 1.5 05/17/17 06:31 APTT 40 SECONDS (21-34) H 05/15/17 11:39 - Constitutional Appears: No Acute Distress - Head Exam Head Exam: ATRAUMATIC, NORMOCEPHALIC - Eye Exam Eye Exam: Normal appearance - ENT Exam ENT Exam: Mucous Membranes Moist - Respiratory Exam Respiratory Exam: NORMAL BREATHING PATTERN - Cardiovascular Exam Cardiovascular Exam: REGULAR RHYTHM - Extremities Exam Additional comments: Right heel ulcer with foul odor left foot has small wound on heel - Neurological Exam Neurological Exam: Alert, Awake - Psychiatric Exam Psychiatric exam: Normal Affect, Normal Mood - Skin Skin Exam: Dry, Warm Assessment and Plan - Assessment and Plan (Free Text) Plan: 67 F with Right heel ulcer s/p angiogram POD #3 -Plan for angiogram with intervention once renal function improves -f/u Nephrology recommendations -Dressing changes as needed by nursing -Management as per primary -Discussed with Dr. Heather Short PGY1
--- NOTE | 2017-05-20 16:37 | CP.PCM.PN ---
Subjective - Date & Time of Evaluation Date of Evaluation: 05/20/17 Time of Evaluation: 16:36 - Subjective Subjective: bun and cr both up despite precaustions Dr Torres's note noted will need to defer left leg rx for j carlos Objective - Vital Signs/Intake and Output Vital Signs (last 24 hours): Temp Pulse Resp BP Pulse Ox 98.3 F 64 20 130/74 99 05/20/17 00:00 05/20/17 00:00 05/20/17 00:00 05/20/17 00:00 05/20/17 00:00 Intake and Output: 05/20/17 05/20/17 06:59 18:59 Intake Total 300 50 Balance 300 50 - Medications Medications: Current Medications Calcium Acetate (Phoslo) 667 mg PO TIDAC [facility] Last Admin: 05/20/17 11:30 Dose: Not Given Carvedilol (Coreg) 3.125 mg PO BID [facility] Last Admin: 05/20/17 10:46 Dose: Not Given Clopidogrel Bisulfate (Plavix) 75 mg PO DAILY [facility] Last Admin: 05/20/17 10:46 Dose: Not Given Epoetin Etienne (Procrit) 10,000 unit SC MWF [facility] Last Admin: 05/20/17 10:46 Dose: Not Given Ergocalciferol (Drisdol 50,000 Intl Units Cap) 1 cap PO Q7D [facility] Last Admin: 05/14/17 11:45 Dose: 1 cap Ferrous Gluconate (Fergon) 324 mg PO TID [facility] Last Admin: 05/20/17 13:06 Dose: Not Given Fluoxetine HCl (Prozac) 20 mg PO DAILY [facility] Last Admin: 05/20/17 10:47 Dose: Not Given Hydralazine HCl (Apresoline) 25 mg PO Q4 PRN PRN Reason: Other Piperacillin Sod/Tazobactam Sod (Zosyn 2.25 Gm Iv Premix) 2.25 gm in 50 mls @ 100 mls/hr IVPB Q8H [facility] Last Admin: 05/20/17 11:00 Dose: Not Given Insulin Aspart (Novolog) 0 unit SC ACHS [facility] PRN Reason: Protocol Last Admin: 05/20/17 11:30 Dose: Not Given Insulin Glargine (Lantus) 10 unit SC HS [facility] Last Admin: 05/19/17 21:42 Dose: Not Given Lactulose (Enulose) 20 gm PO HS [facility] Last Admin: 05/19/17 21:41 Dose: 20 gm Pantoprazole Sodium (Protonix Ec Tab) 40 mg PO DAILY [facility] Last Admin: 05/20/17 10:47 Dose: Not Given Rosuvastatin Calcium (Crestor) 10 mg PO HS [facility] Last Admin: 05/19/17 21:41 Dose: 10 mg Sucralfate (Carafate Tab) 1 gm PO BID [facility] Last Admin: 05/20/17 10:46 Dose: Not Given Vitamin B Complex/Vit C/Folic Acid (Nephro-Naren) 1 tab PO DAILY [facility] Last Admin: 05/20/17 10:46 Dose: Not Given - Labs Labs: 05/20/17 07:57 05/20/17 07:57 PT 17.0 SECONDS (9.7-12.2) H 05/17/17 06:31 INR 1.5 05/17/17 06:31 APTT 40 SECONDS (21-34) H 05/15/17 11:39
[2017-05-20] MEDS: (Lantus) Insulin Glargine, Recombinant SC SCH (21:51)
--- NOTE | 2017-05-20 21:54 | CP.PCM.PN ---
Subjective - Date & Time of Evaluation Date of Evaluation: 05/20/17 Time of Evaluation: 17:35 - Subjective Subjective: Patient seen and evaluated Comfortable S/P Stress test and ECHO Ischemic Cardiomyopathy with EF 35% Abnormal stress test Severe Pulmonary HTN Will need cath prior to any surgery Will defer cath now due to rising Creatinine and CKD stage 4-5 Physical examination - Constitutional Appears: Non-toxic, No Acute Distress - Head Exam Head Exam: NORMAL INSPECTION - Eye Exam Eye Exam: EOMI - ENT Exam ENT Exam: Mucous Membranes Moist - Respiratory Exam Respiratory Exam: Clear to Ausculation Bilateral, NORMAL BREATHING PATTERN. absent: Rales, Rhonchi, Wheezes - Cardiovascular Exam Cardiovascular Exam: REGULAR RHYTHM, +S1, +S2. absent: Gallop, Rubs, Murmur - GI/Abdominal Exam GI & Abdominal Exam: Soft, Normal Bowel Sounds. absent: Tenderness - Extremities Exam Extremities Exam: Pedal Edema Additional comments: pitting edema and venous stasis changes to mid calf b/l negative Shiloh's Warm toes b/l Right heel wrapped in clean bandage odorous feet - Neurological Exam Neurological Exam: Alert, Awake, Oriented x3 - Psychiatric Exam Psychiatric exam: Normal Affect, Normal Mood - Skin Skin Exam: Normal Color, Warm Objective - Vital Signs/Intake and Output Vital Signs (last 24 hours): Temp Pulse Resp BP Pulse Ox 98.0 F 67 20 183/85 H 97 05/20/17 15:00 05/20/17 15:00 05/20/17 15:00 05/20/17 15:00 05/20/17 15:00 Intake and Output: 05/20/17 05/21/17 18:59 06:59 Intake Total 50 Balance 50 - Medications Medications: Current Medications Calcium Acetate (Phoslo) 667 mg PO TIDAC [facility] Last Admin: 05/20/17 17:10 Dose: 667 mg Carvedilol (Coreg) 3.125 mg PO BID [facility] Last Admin: 05/20/17 18:43 Dose: 3.125 mg Clopidogrel Bisulfate (Plavix) 75 mg PO DAILY [facility] Last Admin: 05/20/17 10:46 Dose: Not Given Epoetin Etienne (Procrit) 10,000 unit SC MWF [facility] Last Admin: 05/20/17 10:46 Dose: Not Given Ergocalciferol (Drisdol 50,000 Intl Units Cap) 1 cap PO Q7D [facility] Last Admin: 05/14/17 11:45 Dose: 1 cap Ferrous Gluconate (Fergon) 324 mg PO TID [facility] Last Admin: 05/20/17 18:44 Dose: 324 mg Fluoxetine HCl (Prozac) 20 mg PO DAILY [facility] Last Admin: 05/20/17 10:47 Dose: Not Given Hydralazine HCl (Apresoline) 25 mg PO Q4 PRN PRN Reason: Other Piperacillin Sod/Tazobactam Sod (Zosyn 2.25 Gm Iv Premix) 2.25 gm in 50 mls @ 100 mls/hr IVPB Q8H [facility] Last Admin: 05/20/17 18:49 Dose: 100 mls/hr Insulin Aspart (Novolog) 0 unit SC ACHS [facility] PRN Reason: Protocol Last Admin: 05/20/17 21:50 Dose: Not Given Insulin Glargine (Lantus) 10 unit SC [facility] Last Admin: 05/19/17 21:42 Dose: Not Given Lactulose (Enulose) 20 gm PO [facility] Last Admin: 05/20/17 21:45 Dose: 20 gm Pantoprazole Sodium (Protonix Ec Tab) 40 mg PO DAILY [facility] Last Admin: 05/20/17 10:47 Dose: Not Given Rosuvastatin Calcium (Crestor) 10 mg PO [facility] Last Admin: 05/20/17 21:45 Dose: 10 mg Sucralfate (Carafate Tab) 1 gm PO BID [facility] Last Admin: 05/20/17 18:44 Dose: 1 gm Vitamin B Complex/Vit C/Folic Acid (Nephro-Naren) 1 tab PO DAILY [facility] Last Admin: 05/20/17 10:46 Dose: Not Given - Labs Labs: 05/20/17 07:57 05/20/17 07:57 PT 17.0 SECONDS (9.7-12.2) H 05/17/17 06:31 INR 1.5 05/17/17 06:31 APTT 40 SECONDS (21-34) H 05/15/17 11:39 Assessment and Plan - Assessment and Plan (Free Text) Assessment: Acute on Chronic ESRD Dailysis MWF Procrit [facility] Nephrology consult - Dr. Jett - help appreciated Phoslo 667mg PO TID DMII F/U HgbA1C Lantus 10U SC HS Novolog 70/30 ISS H/O CVA Plavix 75mg PO daily H/O PVD with stents Plavix 75mg PO daily Warfarin 5mg PO HS INR 2.4 F/U INR daily H/O CHF Lasix 40mg PO daily No B-kam secondary to bradycardia Starting Lisinopril 10mg PO daily H/O Hyperlipidemia Converting home med of lipitor 20mg PO daily to formulary Depression Prozac 20mg PO daily Prophylaxis Protonix 40mg PO daily Sucralfate Warfarin Plavix
--- NOTE | 2017-05-21 00:31 | CARD ---
APPROVED REPORT Protocol: PHARMACOLOGICAL STRESS Test Type: LEXISCAN Test Indications: PRE PAD Medications: LIST SCAN Medical History: PRE OP,PAD Target HR: 154 bpm Resting ECG: abnormal Resting Heart Rate: 62 bpm Resting Blood Pressure: 141/80mmHg submaximum (85%): 131 bpm TEST SUMMARY [id number]:250.00.01.063/.0. PREINFSNHYPERV.06:[id number]/80.0. INFUSIONDOSE 100:300.00.01.065/.0. EMZKSAJRA87:[id number]/80.0. PROCEDURE Pharmacologic stress testing was performed using 0.4mg per 5ml of regadenoson given intravenously over 7-10 seconds. POST EXERCISE Target HR: No Max HR: 65 bpm 43% of Maximum Predicted HR: 154 bpm Exercise duration: 00:30 min:sec, 0 Stage Exercise capacity: 1.0METs Max Blood Pressure: 141/80mmHg Chest Pain: No, none Angina index: 0 Arrhythmia: Yes, atrial premature beats ST Change: No, none Deviation: 0 mm INTERPRETATION Stress EKG Conclusion: Nondiagnostic stress test EXAM: Myocardial Perfusion REST/STRESS Imaging Protocol The imaging protocol used to acquire images was Rest Tc-99m/stress Tc-99m 1 day Rest Spect myocardial perfusion imaging was performed in supine position 45 minutes following the injection of 12.9 mCi of Tc-99 Myoview. Gated Stress Spect was performed 45 minutes after intravenous 32.0 mCi Tc-99 Myoview injection. The images were gated to evaluate regional wall motion and calculate ventricular ejection fraction.Images were reconstructed using backfilter projection method in short horizontal and verticle long axis. Spect slices were generated. RESTING DATA DFK755.06hqRE7.40L/min ESV79.00mlMyocardial Ojys430.00g Av. Heart Rate64.00bpm EF41.00% STRESS DATA NLC896.26keTR1.60L/min ESV91.00mlMyocardial Ryex392.00g EF42.00% Regional WT score at stress:2.00 Regional WM score at stress:0.00 Summed WT score at stress:34.00 Av. Heart Rate70.00bpmSummed WM score at stress:34.00 LV Perf. Quant 17 Seg. SSS26.00 17 Seg. SRS25.00 17 Seg. SDS4.00 Stress Defect Extent (% LAD)21.30Rest Defect Extent (% LAD)12.50Rev. Defect Extent (% LAD)5.60 Stress Defect Extent (% LCX)100.00Rest Defect Extent (% LCX)100.00Rev. Defect Extent (% LCX)20.00 Stress Defect Extent (% RCA)12.20Rest Defect Extent (% RCA)21.10Rev. Defect Extent (% RCA)0.00 Stress Defect Extent (% LB)43.30Rest Defect Extent (% LB)41.30Rev. Defect Extent (% LB)12.20 Left Ventricle LV Size/Shape: The left ventricle is normal size. LV Function:Left ventricle systolic function is moderately impaired The Ejection Fraction is 42% up from 41% at rest. Regional Wall Motion:There is hypokinesis in the anterolateral wall. Metabolism/Perfusion Reversible/Irreversible: There is a large irreversible perfusion/metabolism defect in the anterolateral wall. Conclusion 1. Left ventricle systolic function is moderately impaired 2. The Ejection Fraction is 42% up from 41% at rest. 3. [place] lateral ME, No Ischemia.
[2017-05-21] MEDS: Piperacill/Tazo 2.25gm in Dex 2.25 GM/50 ML BAG IVPB SCH ×3 (03:04→21:36)
[2017-05-21 07:48] LABS: INR 1.2
[2017-05-21 07:56] LABS: BASO % 0.6 % (0.0-2.0); EOS # 0.3 K/uL (0.0-0.7); EOS % 4.1 % (0.0-4.0); HEMATOCRIT 28.8 % (34.0-47.0); LYMPH # 0.8 K/uL (1.0-4.3); LYMPH % 11.8 % (20.0-40.0); MEAN CELL VOLUME 93.4 fL (81.0-99.0); MEAN CORPUSCULAR HEMOGLOBIN 29.4 pg (27.0-31.0); MEAN CORPUSCULAR HGB CONC 31.5 g/dL (33.0-37.0); MONO # 0.9 K/uL (0.0-0.8); MONO % 12.5 % (0.0-10.0); NRBC % 0.4 % (0.0-2.0); RED CELL DISTRIBUTION WIDTH 18.3 % (11.5-14.5); WHITE BLOOD COUNT 7.2 K/uL (4.8-10.8)
[2017-05-21 07:58] LABS: POTASSIUM 5.4 mmol/L (3.6-5.2)
[2017-05-21] MEDS: (Novolog) Insulin Aspart, Recombinant 100 u/ml 10 ml vial SC SCH ×4 (07:59→21:39)
[2017-05-21 08:01] LABS: ALB/GLOB RATIO 1.1 (1.0-2.1); BILIRUBIN,TOTAL 0.7 mg/dL (0.2-1.3); PHOSPHOROUS 5.5 mg/dL (2.5-4.5); TOTAL PROTEIN 6.2 g/dL (6.3-8.3)
[2017-05-21 08:02] LABS: MAGNESIUM 1.9 mg/dL (1.6-2.3)
--- NOTE | 2017-05-21 08:36 | CP.PCM.PN ---
Subjective - Date & Time of Evaluation Date of Evaluation: 05/21/17 Time of Evaluation: 07:25 - Subjective Subjective: Vascular Surgery Pt S&E, NAEO. Has some LE pain b/l. No other complaints at this time. Objective - Vital Signs/Intake and Output Vital Signs (last 24 hours): Temp Pulse Resp BP Pulse Ox 98.0 F 63 20 171/84 H 96 05/21/17 08:21 05/21/17 08:21 05/21/17 08:21 05/21/17 08:21 05/21/17 08:21 Intake and Output: 05/21/17 05/21/17 06:59 18:59 Intake Total 500 Balance 500 - Medications Medications: Current Medications Calcium Acetate (Phoslo) 667 mg PO TIDAC [facility] Last Admin: 05/20/17 17:10 Dose: 667 mg Carvedilol (Coreg) 3.125 mg PO BID [facility] Last Admin: 05/20/17 18:43 Dose: 3.125 mg Clopidogrel Bisulfate (Plavix) 75 mg PO DAILY [facility] Last Admin: 05/20/17 10:46 Dose: Not Given Epoetin Etienne (Procrit) 10,000 unit SC MWF [facility] Last Admin: 05/20/17 10:46 Dose: Not Given Ergocalciferol (Drisdol 50,000 Intl Units Cap) 1 cap PO Q7D [facility] Last Admin: 05/14/17 11:45 Dose: 1 cap Ferrous Gluconate (Fergon) 324 mg PO TID [facility] Last Admin: 05/20/17 18:44 Dose: 324 mg Fluoxetine HCl (Prozac) 20 mg PO DAILY [facility] Last Admin: 05/20/17 10:47 Dose: Not Given Hydralazine HCl (Apresoline) 25 mg PO Q4 PRN PRN Reason: Other Piperacillin Sod/Tazobactam Sod (Zosyn 2.25 Gm Iv Premix) 2.25 gm in 50 mls @ 100 mls/hr IVPB Q8H [facility] Last Admin: 05/21/17 03:04 Dose: 100 mls/hr Insulin Aspart (Novolog) 0 unit SC ACHS [facility] PRN Reason: Protocol Last Admin: 05/21/17 07:59 Dose: Not Given Insulin Glargine (Lantus) 10 unit SC HS [facility] Last Admin: 05/20/17 21:51 Dose: 10 unit Lactulose (Enulose) 20 gm PO HS [facility] Last Admin: 05/20/17 21:45 Dose: 20 gm Pantoprazole Sodium (Protonix Ec Tab) 40 mg PO DAILY [facility] Last Admin: 05/20/17 10:47 Dose: Not Given Rosuvastatin Calcium (Crestor) 10 mg PO [facility] Last Admin: 05/20/17 21:45 Dose: 10 mg Sucralfate (Carafate Tab) 1 gm PO BID [facility] Last Admin: 05/20/17 18:44 Dose: 1 gm Vitamin B Complex/Vit C/Folic Acid (Nephro-Naren) 1 tab PO DAILY [facility] Last Admin: 05/20/17 10:46 Dose: Not Given - Labs Labs: 05/21/17 07:30 05/21/17 07:30 PT 13.8 SECONDS (9.7-12.2) H 05/21/17 07:30 INR 1.2 05/21/17 07:30 APTT 32 SECONDS (21-34) 05/21/17 07:30 - Constitutional Appears: Non-toxic, No Acute Distress - Head Exam Head Exam: ATRAUMATIC, NORMOCEPHALIC - Respiratory Exam Respiratory Exam: NORMAL BREATHING PATTERN. absent: Respiratory Distress - GI/Abdominal Exam GI & Abdominal Exam: Soft. absent: Distended, Tenderness - Extremities Exam Extremities Exam: Pedal Edema Additional comments: Dressings on B/L feet with some staining. - Neurological Exam Neurological Exam: Alert, Awake - Skin Skin Exam: Dry, Warm Assessment and Plan - Assessment and Plan (Free Text) Assessment: 67 F with Right heel ulcer s/p angiogram POD #4 with TRINITY from contrast. Plan: Awaiting improvement in kidney function prior to LLE angiogram/plasty procedure. TRINITY worse today Eventual R BKA Appreciate Nephrology recs Will D/W Dr. Heather Jimenez PGY4
[2017-05-21] MEDS: Pantoprazole 40 mg EC Tab PO SCH (09:48)
[2017-05-21] MEDS: Ergocalciferol 50,000 Intl Units Cap PO SCH (09:48)
[2017-05-21] MEDS: Multivitamin Vitamin B Complex (Nephro-Vite) Tab PO SCH (09:50)
--- NOTE | 2017-05-21 10:41 | CP.PCM.PN ---
Subjective - Date & Time of Evaluation Date of Evaluation: 05/21/17 Time of Evaluation: 07:00 - Subjective Subjective: S/P Stress test and ECHO Ischemic Cardiomyopathy with EF 35% Abnormal stress test Severe Pulmonary HTN Will need cath prior to any surgery Objective - Vital Signs/Intake and Output Vital Signs (last 24 hours): Temp Pulse Resp BP Pulse Ox 98.0 F 63 20 171/84 H 96 05/21/17 08:21 05/21/17 08:21 05/21/17 08:21 05/21/17 08:21 05/21/17 08:21 Intake and Output: 05/21/17 05/21/17 06:59 18:59 Intake Total 500 Balance 500 - Medications Medications: Current Medications Calcium Acetate (Phoslo) 667 mg PO TIDAC [facility] Last Admin: 05/21/17 07:49 Dose: 667 mg Carvedilol (Coreg) 3.125 mg PO BID [facility] Last Admin: 05/21/17 09:50 Dose: 3.125 mg Clopidogrel Bisulfate (Plavix) 75 mg PO DAILY [facility] Last Admin: 05/21/17 09:48 Dose: 75 mg Epoetin Etienne (Procrit) 10,000 unit SC MWF [facility] Last Admin: 05/20/17 10:46 Dose: Not Given Ergocalciferol (Drisdol 50,000 Intl Units Cap) 1 cap PO Q7D [facility] Last Admin: 05/21/17 09:48 Dose: 1 cap Ferrous Gluconate (Fergon) 324 mg PO TID [facility] Last Admin: 05/21/17 09:50 Dose: 324 mg Fluoxetine HCl (Prozac) 20 mg PO DAILY [facility] Last Admin: 05/21/17 09:50 Dose: 20 mg Hydralazine HCl (Apresoline) 25 mg PO Q4 PRN PRN Reason: Other Piperacillin Sod/Tazobactam Sod (Zosyn 2.25 Gm Iv Premix) 2.25 gm in 50 mls @ 100 mls/hr IVPB Q8H [facility] Last Admin: 05/21/17 03:04 Dose: 100 mls/hr Insulin Aspart (Novolog) 0 unit SC ACHS [facility] PRN Reason: Protocol Last Admin: 05/21/17 07:59 Dose: Not Given Insulin Glargine (Lantus) 10 unit SC HS [facility] Last Admin: 05/20/17 21:51 Dose: 10 unit Lactulose (Enulose) 20 gm PO HS [facility] Last Admin: 05/20/17 21:45 Dose: 20 gm Pantoprazole Sodium (Protonix Ec Tab) 40 mg PO DAILY [facility] Last Admin: 05/21/17 09:48 Dose: 40 mg Rosuvastatin Calcium (Crestor) 10 mg PO HS [facility] Last Admin: 05/20/17 21:45 Dose: 10 mg Sucralfate (Carafate Tab) 1 gm PO BID [facility] Last Admin: 05/21/17 09:48 Dose: 1 gm Vitamin B Complex/Vit C/Folic Acid (Nephro-Naren) 1 tab PO DAILY [facility] Last Admin: 05/21/17 09:50 Dose: 1 tab - Labs Labs: 05/21/17 07:30 05/21/17 07:30 PT 13.8 SECONDS (9.7-12.2) H 05/21/17 07:30 INR 1.2 05/21/17 07:30 APTT 32 SECONDS (21-34) 05/21/17 07:30 - Constitutional Appears: Non-toxic, Chronically Ill - Head Exam Head Exam: NORMOCEPHALIC - Eye Exam Eye Exam: PERRL - ENT Exam ENT Exam: Mucous Membranes Dry - Neck Exam Neck Exam: absent: Lymphadenopathy - Respiratory Exam Respiratory Exam: Decreased Breath Sounds, Rhonchi - Cardiovascular Exam Cardiovascular Exam: REGULAR RHYTHM, +S1, +S2 Assessment and Plan (1) Acute on chronic renal failure Status: Acute (2) Dehydration Status: Acute (3) Diabetic infection of right foot Status: Acute (4) Anemia Status: Acute (5) Chronic heel ulcer Status: Acute
[2017-05-21] MEDS ORDERED: Sod Polystyrene Sulf 15 gm/60 ml Susp PO ONE (11:34)
--- NOTE | 2017-05-21 11:46 | CP.PCM.PN ---
Subjective - Date & Time of Evaluation Date of Evaluation: 05/21/17 Time of Evaluation: 11:35 - Subjective Subjective: Medicine Progress Note- Dr Denis's service Patient seen and examined. No acute events overnight. Patient states that she feels well with no complaints. Denies chest pain and shortness of breath. Objective - Vital Signs/Intake and Output Vital Signs (last 24 hours): Temp Pulse Resp BP Pulse Ox 98.0 F 63 20 171/84 H 96 05/21/17 08:21 05/21/17 08:21 05/21/17 08:21 05/21/17 08:21 05/21/17 08:21 Intake and Output: 05/21/17 05/21/17 06:59 18:59 Intake Total 500 Balance 500 - Medications Medications: Current Medications Calcium Acetate (Phoslo) 667 mg PO TIDAC [facility] Last Admin: 05/21/17 11:07 Dose: 667 mg Carvedilol (Coreg) 3.125 mg PO BID [facility] Last Admin: 05/21/17 09:50 Dose: 3.125 mg Clopidogrel Bisulfate (Plavix) 75 mg PO DAILY [facility] Last Admin: 05/21/17 09:48 Dose: 75 mg Epoetin Etienne (Procrit) 10,000 unit SC MWF [facility] Last Admin: 05/20/17 10:46 Dose: Not Given Ergocalciferol (Drisdol 50,000 Intl Units Cap) 1 cap PO Q7D [facility] Last Admin: 05/21/17 09:48 Dose: 1 cap Ferrous Gluconate (Fergon) 324 mg PO TID [facility] Last Admin: 05/21/17 09:50 Dose: 324 mg Fluoxetine HCl (Prozac) 20 mg PO DAILY [facility] Last Admin: 05/21/17 09:50 Dose: 20 mg Hydralazine HCl (Apresoline) 25 mg PO Q4 PRN PRN Reason: Other Hydralazine HCl (Apresoline) 50 mg PO BID [facility] Last Admin: 05/21/17 11:07 Dose: 50 mg Piperacillin Sod/Tazobactam Sod (Zosyn 2.25 Gm Iv Premix) 2.25 gm in 50 mls @ 100 mls/hr IVPB Q8H [facility] Last Admin: 05/21/17 11:07 Dose: 100 mls/hr Insulin Aspart (Novolog) 0 unit SC [facility] PRN Reason: Protocol Last Admin: 05/21/17 07:59 Dose: Not Given Insulin Glargine (Lantus) 10 unit SC [facility] Last Admin: 05/20/17 21:51 Dose: 10 unit Lactulose (Enulose) 20 gm PO HS [facility] Last Admin: 05/20/17 21:45 Dose: 20 gm Pantoprazole Sodium (Protonix Ec Tab) 40 mg PO DAILY [facility] Last Admin: 05/21/17 09:48 Dose: 40 mg Rosuvastatin Calcium (Crestor) 10 mg PO [facility] Last Admin: 05/20/17 21:45 Dose: 10 mg Sodium Polystyrene Sulfonate (Kayexalate Susp) 30 gm PO ONCE ONE Stop: 05/21/17 11:35 Sucralfate (Carafate Tab) 1 gm PO BID [facility] Last Admin: 05/21/17 09:48 Dose: 1 gm Vitamin B Complex/Vit C/Folic Acid (Nephro-Naren) 1 tab PO DAILY [facility] Last Admin: 05/21/17 09:50 Dose: 1 tab - Labs Labs: 05/21/17 07:30 05/21/17 07:30 PT 13.8 SECONDS (9.7-12.2) H 05/21/17 07:30 INR 1.2 05/21/17 07:30 APTT 32 SECONDS (21-34) 05/21/17 07:30 - Additional Findings Additional findings: - Constitutional Appears: Non-toxic, No Acute Distress - Head Exam Head Exam: ATRAUMATIC, NORMOCEPHALIC - Respiratory Exam Respiratory Exam: NORMAL BREATHING PATTERN. absent: Respiratory Distress - GI/Abdominal Exam GI & Abdominal Exam: Soft. absent: Distended, Tenderness - Extremities Exam Extremities Exam: Pedal Edema Additional comments: Dressings on B/L feet with some staining. - Neurological Exam Neurological Exam: Alert, Awake - Skin Skin Exam: Dry, Warm Assessment and Plan - Assessment and Plan (Free Text) Assessment: 1. Right Diabetic Heel Ulcer -Right foot X ray shows no evidence of osteomyelitis -Cefepime and vancomycin given in ER -ID consult - Dr. Nunez - recs appreciated. - Zosyn 2.25gm IV q8h (started on 05/13) and Vanco 1gm IV MWF (start on 11/8) -Vascular Surgery consult - Dr. Romero - f/u recs - Wound Care Nurse consult - f/u recs -Percocet 5/325mg PO Q4H PRN pain -05/13 right ankle wound culture POSITIVE for proteus and staph aureus -Blood culture + coag neg staph aureus -cardio consult. Dr. Ledesma. recs that patient may go ahead with angiogram. recommendation appreciated. -ECHO shows moderate LV dysfunction -severe tricuspid regurgitation -plan for angioplasty today 2. Pedal Edema and PVD -Chronic -Vascular Surgery consult - Dr. Romero -help appreciated -s/p angiogram POD #4 -keep legs elevated 3. Hx of HTN -BP elevated, however due to kidney function we must avoid certain BP medications -Added Hydralazine 50mg PO BID on 05/21 per desktop publishing associate, help appreciated -low dose coreg 3.125 mg PO BID (monitor for bradycardia) -Monitor vitals q4h 4. Acute on Chronic Kidney Disease -BUN/Cr increased to 12/5.4 due to contrast from procedure. Will continue to monitor -Procrit [facility] -Nephrology consult - Dr. Torres - help appreciated -Phoslo 667mg PO TID -Avoid nephrotoxins/NSAIDs/ iodinated contrast (unless needed emergently) -urine studies ordered -Potassium elevated today likely due to TRINITY, given Kayexelate 30gm PO solution once today. f/u BMP tomorrow 5. Insulin dependent DMII -HgbA1C 10.3 -Lantus 10U SC HS -Novolog 70/30 ISS -Accuchecks 6. Anemia -normocytic -Likely secondary to chronic kidney disease -Iron 30, TIBC 373, % sat 8, ferritin 42 -Continue Procrit MWF -Monitor CBC daily -continue ferrous gluconate 324 tid 7. H/O CVA -Plavix 75mg PO daily -PT evaluation- recommend TROY upon discharge -Fall risk protocol 8. H/O PVD with stents -Plavix 75mg PO daily -Warfarin held due to pending procedure -INR 1.2 -F/U INR daily -Slip Cover Cutter Dr Ledesma consulted for cardiac clearance pending further procedures. Stress test and ECHO done showed LV EF 35%. The patient needs a cardiac cath prior to any other procedure. Cath can not be done at this time due to TRINITY. 9. H/O CHF -Lasix 40mg PO daily -Low dose coreg 3.125mg PO BID (monitor for bradycardia) -Lisinopril 10mg PO daily -Stress test and ECHO done showed LV EF 35% 10. H/O Hyperlipidemia -continue crestor 10 mg PO HS 11. Depression -Prozac 20mg PO daily -Denies suicidal/homicidal ideations at this time 12. Vitamin D deficiency -Vit D 20.8 -continue Ergocalciferol 50,000u qweekly 13. Prophylaxis -Protonix 40mg PO daily -Sucralfate -Warfarin held Discussed with Dr. Denis
--- NOTE | 2017-05-21 13:06 | CP.PCM.PN ---
Subjective - Date & Time of Evaluation Date of Evaluation: 05/21/17 Time of Evaluation: 13:00 - Subjective Subjective: Follow up Nephrology Consultation: Assessment: worsening Acute Kidney Injury likely contrast induced nephropathy: worsening Non-healing ulcer on heel with celluliits Diabetic chronic Kidney Disease (E11.22) Hypertensive Chronic Kidney Disease (I12.9) Chronic Kidney Disease (N18.4) Stage 4 with 500 mg proteinuria (R80.9) possibly due to DM and or HTN Anemia (D64.9), Hyperphosphatemia (E83.39), HTN (I12.9) systolic CHF, Morbid obesity, PVD, depression Mild Hyperkalemia Plan No acute need for renal replacement therapy at this time but likely will need if no spontaneous renal recovery soon. continue to monitor for renal function and I/O closely. I discussed with pt about potential need for dialysis soon but she had limited understanding. I called her son to discuss as well but no answer. agree with kayexylate in the interim Hypertension control with meds as ordered. continue with low dose coreg. added hydralazine 50 mg bid. hold lisinopril/lasix for now due to TRINITY but may give IV lasix 40-80 mg if needed for shortness of breath continue with her home dose epogen (hold if Hb>11) and phoslo continue with vit D and oral iron supplementation ID and vascular surgery following Dose meds/antibiotics for reduced GFR. Avoid fleets enema/magnesium based laxatives. Avoid nephrotoxins/NSAIDs/ iodinated contrast (unless needed emergently) Glycemic control Further work up/management as per primary team Thanks for allowing me to participate in care of your patient. Will follow patient with you. Please call if any Qs Dr Juan Torres Office: [phone] HPI: Pt is a 67 y/o F with hx of diabetes Mellitus hypertension, CHF, chronic anemia, hyperphos, DVT on coumadin, drpression, obesity, dementia, CVA, CKD ? stage and a long-term resident at [facility] presented with complaints of non healing ulcer Rt heel. Used [employer] for creole interpretation. ROS: She Denies chest pain, palpitation, shortness of breath or urinary complaints Physical Examination: General Appearance: Comfortable, in no acute respiratory distress, co-operative . obese Vitals reviewed and noted as below Lungs: Normal respiratory rate/effort. Breath sounds bilateral equal and clear except few left basal crackles Heart: Normal rate. s1s2 normal. No rub or gallop. Extremities: 1-2+ edema. No varicose veins. has chronic venous stasis changes. both feets in dressings. LUE swelling + Neurological: Patient is alert, awake and not oriented to person, place or time. ? has dementia. No focal deficit. Strength bilateral appropriate and equal Skin: Warm and dry. Normal turgor. No rash. Palpitation: Normal elasticity for age Abdomen: Abdomen is soft. Bowel sounds +. There is no abdominal tenderness, no guarding/rigidity no organomegaly. she is obese, flank and lower abdomen fullness noted. Psych: lack insight MSK: no joint tenderness or swelling. Digits and nails normal, no deformity : kidney or bladder not palpable Labs/imaging/EKG reviewed. Past medical history, past surgical history, family history, social history, allergy reviewed and noted as below Family hx: no hx of CKD. Rest non-contributory Objective - Vital Signs/Intake and Output Vital Signs (last 24 hours): Temp Pulse Resp BP Pulse Ox 98.0 F 63 20 171/84 H 96 05/21/17 08:21 05/21/17 08:21 05/21/17 08:21 05/21/17 08:21 05/21/17 08:21 Intake and Output: 05/21/17 05/21/17 06:59 18:59 Intake Total 500 Balance 500 - Medications Medications: Current Medications Calcium Acetate (Phoslo) 667 mg PO TIDAC [facility] Last Admin: 05/21/17 11:07 Dose: 667 mg Carvedilol (Coreg) 3.125 mg PO BID [facility] Last Admin: 05/21/17 09:50 Dose: 3.125 mg Clopidogrel Bisulfate (Plavix) 75 mg PO DAILY [facility] Last Admin: 05/21/17 09:48 Dose: 75 mg Epoetin Etienne (Procrit) 10,000 unit SC MWF [facility] Last Admin: 05/20/17 10:46 Dose: Not Given Ergocalciferol (Drisdol 50,000 Intl Units Cap) 1 cap PO Q7D [facility] Last Admin: 05/21/17 09:48 Dose: 1 cap Ferrous Gluconate (Fergon) 324 mg PO TID [facility] Last Admin: 05/21/17 09:50 Dose: 324 mg Fluoxetine HCl (Prozac) 20 mg PO DAILY [facility] Last Admin: 05/21/17 09:50 Dose: 20 mg Hydralazine HCl (Apresoline) 25 mg PO Q4 PRN PRN Reason: Other Hydralazine HCl (Apresoline) 50 mg PO BID [facility] Last Admin: 05/21/17 11:07 Dose: 50 mg Piperacillin Sod/Tazobactam Sod (Zosyn 2.25 Gm Iv Premix) 2.25 gm in 50 mls @ 100 mls/hr IVPB Q8H [facility] Last Admin: 05/21/17 11:07 Dose: 100 mls/hr Insulin Aspart (Novolog) 0 unit SC ACHS [facility] PRN Reason: Protocol Last Admin: 05/21/17 12:30 Dose: 2 unit Insulin Glargine (Lantus) 10 unit SC HS [facility] Last Admin: 05/20/17 21:51 Dose: 10 unit Lactulose (Enulose) 20 gm PO HS [facility] Last Admin: 05/20/17 21:45 Dose: 20 gm Pantoprazole Sodium (Protonix Ec Tab) 40 mg PO DAILY [facility] Last Admin: 05/21/17 09:48 Dose: 40 mg Rosuvastatin Calcium (Crestor) 10 mg PO HS [facility] Last Admin: 05/20/17 21:45 Dose: 10 mg Sucralfate (Carafate Tab) 1 gm PO BID [facility] Last Admin: 05/21/17 09:48 Dose: 1 gm Vitamin B Complex/Vit C/Folic Acid (Nephro-Naren) 1 tab PO DAILY [facility] Last Admin: 05/21/17 09:50 Dose: 1 tab - Labs Labs: 05/21/17 07:30 05/21/17 07:30 PT 13.8 SECONDS (9.7-12.2) H 05/21/17 07:30 INR 1.2 05/21/17 07:30 APTT 32 SECONDS (21-34) 05/21/17 07:30
--- NOTE | 2017-05-21 16:13 | CP.PCM.PN ---
<Rama Preciado DO - Last Filed: 05/21/17 16:01> Subjective - Date & Time of Evaluation Date of Evaluation: 05/21/17 Time of Evaluation: 10:00 - Subjective Subjective: Cardiology progress note for Dr. Ledesma Patient seen and examined. No acute events overnight per report. Patient denies complaints at this time. Objective - Vital Signs/Intake and Output Vital Signs (last 24 hours): Temp Pulse Resp BP Pulse Ox 98.0 F 63 20 171/84 H 96 05/21/17 08:21 05/21/17 08:21 05/21/17 08:21 05/21/17 08:21 05/21/17 08:21 Intake and Output: 05/21/17 05/21/17 06:59 18:59 Intake Total 500 250 Balance 500 250 - Medications Medications: Current Medications Calcium Acetate (Phoslo) 667 mg PO TIDAC [facility] Last Admin: 05/21/17 11:07 Dose: 667 mg Carvedilol (Coreg) 3.125 mg PO BID [facility] Last Admin: 05/21/17 09:50 Dose: 3.125 mg Clopidogrel Bisulfate (Plavix) 75 mg PO DAILY [facility] Last Admin: 05/21/17 09:48 Dose: 75 mg Epoetin Etienne (Procrit) 10,000 unit SC MWF [facility] Last Admin: 05/20/17 10:46 Dose: Not Given Ergocalciferol (Drisdol 50,000 Intl Units Cap) 1 cap PO Q7D [facility] Last Admin: 05/21/17 09:48 Dose: 1 cap Ferrous Gluconate (Fergon) 324 mg PO TID [facility] Last Admin: 05/21/17 13:42 Dose: 324 mg Fluoxetine HCl (Prozac) 20 mg PO DAILY [facility] Last Admin: 05/21/17 09:50 Dose: 20 mg Hydralazine HCl (Apresoline) 25 mg PO Q4 PRN PRN Reason: Other Hydralazine HCl (Apresoline) 50 mg PO BID [facility] Last Admin: 05/21/17 11:07 Dose: 50 mg Piperacillin Sod/Tazobactam Sod (Zosyn 2.25 Gm Iv Premix) 2.25 gm in 50 mls @ 100 mls/hr IVPB Q8H [facility] Last Admin: 05/21/17 11:07 Dose: 100 mls/hr Insulin Aspart (Novolog) 0 unit SC [facility] PRN Reason: Protocol Last Admin: 05/21/17 12:30 Dose: 2 unit Insulin Glargine (Lantus) 10 unit SC [facility] Last Admin: 05/20/17 21:51 Dose: 10 unit Lactulose (Enulose) 20 gm PO [facility] Last Admin: 05/20/17 21:45 Dose: 20 gm Pantoprazole Sodium (Protonix Ec Tab) 40 mg PO DAILY [facility] Last Admin: 05/21/17 09:48 Dose: 40 mg Rosuvastatin Calcium (Crestor) 10 mg PO [facility] Last Admin: 05/20/17 21:45 Dose: 10 mg Sucralfate (Carafate Tab) 1 gm PO BID [facility] Last Admin: 05/21/17 09:48 Dose: 1 gm Vitamin B Complex/Vit C/Folic Acid (Nephro-Naren) 1 tab PO DAILY [facility] Last Admin: 05/21/17 09:50 Dose: 1 tab - Labs Labs: 05/21/17 07:30 05/21/17 07:30 PT 13.8 SECONDS (9.7-12.2) H 05/21/17 07:30 INR 1.2 05/21/17 07:30 APTT 32 SECONDS (21-34) 05/21/17 07:30 - Constitutional Appears: No Acute Distress - Head Exam Head Exam: ATRAUMATIC, NORMOCEPHALIC - Eye Exam Eye Exam: EOMI - Respiratory Exam Respiratory Exam: Decreased Breath Sounds, NORMAL BREATHING PATTERN - Cardiovascular Exam Cardiovascular Exam: +S1, +S2 - GI/Abdominal Exam GI & Abdominal Exam: Soft. absent: Tenderness - Extremities Exam Extremities Exam: Pedal Edema Additional comments: dressings on bilateral heels, right heel with serous staining - Neurological Exam Neurological Exam: Alert, Awake - Psychiatric Exam Psychiatric exam: Normal Affect - Skin Skin Exam: Warm Assessment and Plan - Assessment and Plan (Free Text) Assessment: 67 year old female with PMHx DM II, COPD, CHF, HLD, HTN, PVD, CVA, ESRD and osteomyelitis who presents for worsening right heel ulcer CHF Echo: systolic function moderately impaired, LV diastolic function normal, mild mitral regurgitation, moderate to severe tricuspid regurgitation. EF 30-35% Stress test abnormal, moderately impaired LV systolic function, old anterolateral MA, no ischemia, EF 42% up from 41% at rest due to low EF, patient will need Life Vest before discharge PVD no target vessel for endovascular or surgical target, per Dr. Romero, recommend BKA on right leg. Left leg has focal occlusion in popliteal patient Patient will need cardiac cath prior to procedure but patient is currently not a candidate for cath due to TRINITY on CKD continue to optimize renal function as per nephrology HTN continue coreg 3.125 BID, hydralazine 50mg PO BID Plan as per Dr. Ledesma <Arnulfo Ledesma - Last Filed: 05/21/17 18:25> Objective - Vital Signs/Intake and Output Vital Signs (last 24 hours): Temp Pulse Resp BP Pulse Ox 98.1 F 65 20 159/82 H 100 05/21/17 16:00 05/21/17 16:00 05/21/17 16:00 05/21/17 16:00 05/21/17 16:00 Intake and Output: 05/21/17 05/21/17 06:59 18:59 Intake Total 500 250 Balance 500 250 - Medications Medications: Current Medications Calcium Acetate (Phoslo) 667 mg PO TIDAC [facility] Last Admin: 05/21/17 11:07 Dose: 667 mg Carvedilol (Coreg) 3.125 mg PO BID [facility] Last Admin: 05/21/17 17:17 Dose: 3.125 mg Clopidogrel Bisulfate (Plavix) 75 mg PO DAILY [facility] Last Admin: 05/21/17 09:48 Dose: 75 mg Epoetin Etienne (Procrit) 10,000 unit SC MWF [facility] Last Admin: 05/20/17 10:46 Dose: Not Given Ergocalciferol (Drisdol 50,000 Intl Units Cap) 1 cap PO Q7D [facility] Last Admin: 05/21/17 09:48 Dose: 1 cap Ferrous Gluconate (Fergon) 324 mg PO TID [facility] Last Admin: 05/21/17 17:19 Dose: 324 mg Fluoxetine HCl (Prozac) 20 mg PO DAILY [facility] Last Admin: 05/21/17 09:50 Dose: 20 mg Hydralazine HCl (Apresoline) 25 mg PO Q4 PRN PRN Reason: Other Hydralazine HCl (Apresoline) 50 mg PO BID [facility] Last Admin: 05/21/17 17:18 Dose: 50 mg Piperacillin Sod/Tazobactam Sod (Zosyn 2.25 Gm Iv Premix) 2.25 gm in 50 mls @ 100 mls/hr IVPB Q8H [facility] Last Admin: 05/21/17 11:07 Dose: 100 mls/hr Insulin Aspart (Novolog) 0 unit SC ACHS [facility] PRN Reason: Protocol Last Admin: 05/21/17 17:25 Dose: 3 unit Insulin Glargine (Lantus) 10 unit SC HS [facility] Last Admin: 05/20/17 21:51 Dose: 10 unit Lactulose (Enulose) 20 gm PO HS [facility] Last Admin: 05/20/17 21:45 Dose: 20 gm Pantoprazole Sodium (Protonix Ec Tab) 40 mg PO DAILY [facility] Last Admin: 05/21/17 09:48 Dose: 40 mg Rosuvastatin Calcium (Crestor) 10 mg PO HS [facility] Last Admin: 05/20/17 21:45 Dose: 10 mg Sucralfate (Carafate Tab) 1 gm PO BID [facility] Last Admin: 05/21/17 17:20 Dose: 1 gm Vitamin B Complex/Vit C/Folic Acid (Nephro-Naren) 1 tab PO DAILY [facility] Last Admin: 05/21/17 09:50 Dose: 1 tab - Labs Labs: 05/21/17 07:30 05/21/17 07:30 PT 13.8 SECONDS (9.7-12.2) H 05/21/17 07:30 INR 1.2 05/21/17 07:30 APTT 32 SECONDS (21-34) 05/21/17 07:30 Assessment and Plan - Assessment and Plan (Free Text) Assessment: Patient personally seen and evaluated by me Discussed during rounds Plan of care as documented EF 35% (Ischemic CMP) Needs LifeVest prior to ICD eval Needs cath prior to surgery but due to rising creatinine defer cath for now Considered high risk for amputation surgery (?BKA) If the benefit outweighs the the risks please proceed with the surgery Will follow Thank you
[2017-05-21] MEDS: (Lantus) Insulin Glargine, Recombinant SC SCH (21:38)
[2017-05-22] MEDS: Piperacill/Tazo 2.25gm in Dex 2.25 GM/50 ML BAG IVPB SCH ×3 (03:06→19:00)
[2017-05-22 07:13] LABS: BASO % 0.4 % (0.0-2.0); EOS # 0.3 K/uL (0.0-0.7); EOS % 3.4 % (0.0-4.0); HEMATOCRIT 29.1 % (34.0-47.0); LYMPH % 11.9 % (20.0-40.0); MEAN CELL VOLUME 93.9 fL (81.0-99.0); MEAN CORPUSCULAR HEMOGLOBIN 29.6 pg (27.0-31.0); MEAN CORPUSCULAR HGB CONC 31.5 g/dL (33.0-37.0); MEAN PLATELET VOLUME 8.9 fL (7.2-11.7); MONO # 0.9 K/uL (0.0-0.8); MONO % 11.6 % (0.0-10.0); NRBC % 0.2 % (0.0-2.0); RED CELL DISTRIBUTION WIDTH 18.3 % (11.5-14.5); WHITE BLOOD COUNT 8.1 K/uL (4.8-10.8)
[2017-05-22 08:02] LABS: CALCIUM 7.9 mg/dl (8.6-10.4); PHOSPHOROUS 6.2 mg/dL (2.5-4.5); POTASSIUM 5.2 mmol/L (3.6-5.2)
[2017-05-22] MEDS: (Novolog) Insulin Aspart, Recombinant 100 u/ml 10 ml vial SC SCH ×4 (08:30→22:02)
--- NOTE | 2017-05-22 09:52 | CP.PCM.PN ---
Subjective - Date & Time of Evaluation Date of Evaluation: 05/22/17 Time of Evaluation: 13:22 - Subjective Subjective: Medicine Progress Note- Dr Denis's service Patient seen and examined. No acute events overnight. Patient is stable pending evaluation for lifevest. Objective - Vital Signs/Intake and Output Vital Signs (last 24 hours): Temp Pulse Resp BP Pulse Ox 98.4 F 67 20 144/81 100 05/22/17 07:36 05/22/17 07:36 05/22/17 07:36 05/22/17 07:36 05/22/17 07:36 Intake and Output: 05/22/17 05/22/17 06:59 18:59 Intake Total 400 Balance 400 - Medications Medications: Current Medications Calcium Acetate (Phoslo) 667 mg PO TIDAC [facility] Last Admin: 05/22/17 08:30 Dose: 667 mg Carvedilol (Coreg) 3.125 mg PO BID [facility] Last Admin: 05/21/17 17:17 Dose: 3.125 mg Clopidogrel Bisulfate (Plavix) 75 mg PO DAILY [facility] Last Admin: 05/21/17 09:48 Dose: 75 mg Epoetin Etienne (Procrit) 10,000 unit SC MWF [facility] Last Admin: 05/20/17 10:46 Dose: Not Given Ergocalciferol (Drisdol 50,000 Intl Units Cap) 1 cap PO Q7D [facility] Last Admin: 05/21/17 09:48 Dose: 1 cap Ferrous Gluconate (Fergon) 324 mg PO TID [facility] Last Admin: 05/21/17 17:19 Dose: 324 mg Fluoxetine HCl (Prozac) 20 mg PO DAILY [facility] Last Admin: 05/21/17 09:50 Dose: 20 mg Hydralazine HCl (Apresoline) 25 mg PO Q4 PRN PRN Reason: Other Hydralazine HCl (Apresoline) 50 mg PO BID [facility] Last Admin: 05/21/17 17:18 Dose: 50 mg Piperacillin Sod/Tazobactam Sod (Zosyn 2.25 Gm Iv Premix) 2.25 gm in 50 mls @ 100 mls/hr IVPB Q8H [facility] Last Admin: 05/22/17 03:06 Dose: 100 mls/hr Insulin Aspart (Novolog) 0 unit SC ACHS [facility] PRN Reason: Protocol Last Admin: 05/22/17 08:30 Dose: Not Given Insulin Glargine (Lantus) 10 unit SC [facility] Last Admin: 05/21/17 21:38 Dose: 10 unit Lactulose (Enulose) 20 gm PO HS [facility] Last Admin: 05/21/17 21:37 Dose: 20 gm Pantoprazole Sodium (Protonix Ec Tab) 40 mg PO DAILY [facility] Last Admin: 05/21/17 09:48 Dose: 40 mg Rosuvastatin Calcium (Crestor) 10 mg PO [facility] Last Admin: 05/21/17 21:37 Dose: 10 mg Sucralfate (Carafate Tab) 1 gm PO BID [facility] Last Admin: 05/21/17 17:20 Dose: 1 gm Vitamin B Complex/Vit C/Folic Acid (Nephro-Naren) 1 tab PO DAILY [facility] Last Admin: 05/21/17 09:50 Dose: 1 tab - Labs Labs: 05/22/17 07:05 05/22/17 07:05 PT 13.8 SECONDS (9.7-12.2) H 05/21/17 07:30 INR 1.2 05/21/17 07:30 APTT 32 SECONDS (21-34) 05/21/17 07:30 - Constitutional Appears: Non-toxic, No Acute Distress - Head Exam Head Exam: ATRAUMATIC, NORMOCEPHALIC - Respiratory Exam Respiratory Exam: NORMAL BREATHING PATTERN. absent: Respiratory Distress - GI/Abdominal Exam GI & Abdominal Exam: Soft. absent: Distended, Tenderness - Extremities Exam Extremities Exam: Pedal Edema Additional comments: Dressings on B/L feet with some staining. - Neurological Exam Neurological Exam: Alert, Awake - Skin Skin Exam: Dry, Warm Assessment and Plan - Assessment and Plan (Free Text) Assessment: Right Diabetic Heel Ulcer -Right foot X ray shows no evidence of osteomyelitis -Cefepime and vancomycin given in ER -ID consult - Dr. Nunez - recs appreciated. -Continue Zosyn 2.25gm IV q8h (started on 05/13) -Discontinued Vanco -Vascular Surgery consult - Dr. Romero - f/u recs -Wound Care Nurse consult -Percocet 5/325mg PO Q4H PRN pain -05/13 right ankle wound culture POSITIVE for proteus and staph aureus -Blood culture + coag neg staph aureus Acute on Chronic Kidney Disease -Creatinine continues to increase, 6.3 today. Hammer Smith recommends emergent dialysis if patient's kidney function does not improve by tomorrow. Will monitor for another [address] Romero made aware of plan. Will place temporary access for dialysis tomorrow if needed. -Nephrology consult - Dr. 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 Romero -help appreciated -s/p angiogram POD #5 -keep legs elevated Hx of HTN -BP elevated, however due to kidney function we must avoid certain BP medications -Added Hydralazine 50mg PO BID on 05/21 per offset duplicating machine operator, help appreciated -low dose coreg 3.125 mg PO BID (monitor for bradycardia) -Monitor vitals q4h H/O PVD with stents -Plavix 75mg PO daily -Warfarin held due to pending procedures -INR 1.2 -F/U INR daily -Footwear Production Machine Operator Dr Ledesma consulted for cardiac clearance pending further procedures. Stress test and ECHO done showed LV EF 35%. The patient needs a cardiac cath prior to any other procedure. Cath can not be done at this time due to TRINITY. Patient is high risk for any procedure. Insulin dependent DMII -HgbA1C 10.3 -Lantus 10U SC HS -Novolog 70/30 ISS -Accuchecks Anemia -stable -normocytic -Likely secondary to chronic kidney disease -Iron 30, TIBC 373, % sat 8, ferritin 42 -Continue Procrit MWF -Monitor CBC daily -continue ferrous gluconate 324 tid H/O CVA -Plavix 75mg PO daily -PT evaluation- recommend TROY upon discharge -Fall risk protocol H/O Hyperlipidemia -continue crestor 10 mg PO HS Depression -Prozac 20mg PO daily -Denies suicidal/homicidal ideations at this time Vitamin D deficiency -Vit D 20.8 -continue Ergocalciferol 50,000u qweekly Prophylaxis -Protonix 40mg PO daily -Sucralfate -Warfarin held Discussed with Dr. Denis
[2017-05-22] MEDS: Pantoprazole 40 mg EC Tab PO SCH (11:00)
[2017-05-22] MEDS: Multivitamin Vitamin B Complex (Nephro-Vite) Tab PO SCH (11:00)
--- NOTE | 2017-05-22 12:26 | CP.PCM.PN ---
Subjective - Date & Time of Evaluation Date of Evaluation: 05/22/17 Time of Evaluation: 12:20 - Subjective Subjective: Follow up Nephrology Consultation: Assessment: worsening Acute Kidney Injury likely contrast induced nephropathy: worsening Non-healing ulcer on heel with celluliits Diabetic chronic Kidney Disease (E11.22) Hypertensive Chronic Kidney Disease (I12.9) Chronic Kidney Disease (N18.4) Stage 4 with 500 mg proteinuria (R80.9) possibly due to DM and or HTN Anemia (D64.9), Hyperphosphatemia (E83.39), HTN (I12.9) systolic CHF, Morbid obesity, PVD, depression Mild Hyperkalemia Plan renal replacement therapy d/w patient but she deferred it to her son. I called her son, Raji who is in [place] and d/w about current renal condition/prognosis/ recovery chances, likely need for dialysis soon considering her worsening renal function, other co-morbs including CHF, need for other invasive interventions such as cardiac cath, leg amputation/PVD intervention. He agreed for HD, consent obtained will observe for another 24 hrs, if continue to worsen then please consult vascular surgery for temporary dialysis access and then will initiate dialysis tomorrow. continue to monitor for renal function and I/O closely. Hypertension control with meds as ordered. continue with low dose coreg, hydralazine 50 mg bid. hold lisinopril/lasix for now due to TRINITY but may give IV lasix 40-80 mg if needed for shortness of breath continue with her home dose epogen (hold if Hb>11) and phoslo continue with vit D and oral iron supplementation ID and vascular surgery following Dose meds/antibiotics for reduced GFR <10. Avoid fleets enema/magnesium based laxatives. Avoid nephrotoxins/NSAIDs/ iodinated contrast (unless needed emergently) Glycemic control Further work up/management as per primary team Thanks for allowing me to participate in care of your patient. Will follow patient with you. Please call if any Qs. d/w team Dr Juan Torres Office: [phone] HPI: Pt is a 67 y/o F with hx of diabetes Mellitus hypertension, CHF, chronic anemia, hyperphos, DVT on coumadin, drpression, obesity, dementia, CVA, CKD ? 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 Used [employer] for creole interpretation. ROS: She Denies chest pain, palpitation, shortness of breath. urinary complaints : as decreased urine output Physical Examination: General Appearance: Comfortable, in no acute respiratory distress, co-operative . obese Vitals reviewed and noted as below Lungs: Normal respiratory rate/effort. Breath sounds bilateral equal and clear Heart: Normal rate. s1s2 normal. No rub or gallop. Extremities: 1-2+ edema. No varicose veins. has chronic venous stasis changes. both feets in dressings. LUE swelling + Neurological: Patient is alert, awake and not oriented to person, place or time. ? has dementia. No focal deficit. Strength bilateral appropriate and equal Skin: Warm and dry. Normal turgor. No rash. Palpitation: Normal elasticity for age Abdomen: Abdomen is soft. Bowel sounds +. There is no abdominal tenderness, no guarding/rigidity no organomegaly. she is obese, flank and lower abdomen fullness noted. Psych: lack insight MSK: no joint tenderness or swelling. Digits and nails normal, no deformity : kidney or bladder not palpable Labs/imaging/EKG reviewed. Past medical history, past surgical history, family history, social history, allergy reviewed and noted as below Family hx: no hx of CKD. Rest non-contributory Objective - Vital Signs/Intake and Output Vital Signs (last 24 hours): Temp Pulse Resp BP Pulse Ox 98.4 F 67 20 144/81 100 05/22/17 07:36 05/22/17 07:36 05/22/17 07:36 05/22/17 07:36 05/22/17 07:36 Intake and Output: 05/22/17 05/22/17 06:59 18:59 Intake Total 400 Balance 400 - Medications Medications: Current Medications Calcium Acetate (Phoslo) 667 mg PO TIDAC [facility] Last Admin: 05/22/17 08:30 Dose: 667 mg Carvedilol (Coreg) 3.125 mg PO BID [facility] Last Admin: 05/22/17 11:00 Dose: 3.125 mg Clopidogrel Bisulfate (Plavix) 75 mg PO DAILY [facility] Last Admin: 05/22/17 11:00 Dose: 75 mg Epoetin Etienne (Procrit) 10,000 unit SC MWF [facility] Last Admin: 05/20/17 10:46 Dose: Not Given Ergocalciferol (Drisdol 50,000 Intl Units Cap) 1 cap PO Q7D [facility] Last Admin: 05/21/17 09:48 Dose: 1 cap Ferrous Gluconate (Fergon) 324 mg PO TID [facility] Last Admin: 05/22/17 11:00 Dose: 324 mg Fluoxetine HCl (Prozac) 20 mg PO DAILY [facility] Last Admin: 05/22/17 11:00 Dose: 20 mg Hydralazine HCl (Apresoline) 25 mg PO Q4 PRN PRN Reason: Other Hydralazine HCl (Apresoline) 50 mg PO BID [facility] Last Admin: 05/22/17 11:00 Dose: 50 mg Piperacillin Sod/Tazobactam Sod (Zosyn 2.25 Gm Iv Premix) 2.25 gm in 50 mls @ 100 mls/hr IVPB Q8H [facility] Last Admin: 05/22/17 11:16 Dose: 100 mls/hr Insulin Aspart (Novolog) 0 unit SC ACHS [facility] PRN Reason: Protocol Last Admin: 05/22/17 08:30 Dose: Not Given Insulin Glargine (Lantus) 10 unit SC HS [facility] Last Admin: 05/21/17 21:38 Dose: 10 unit Lactulose (Enulose) 20 gm PO HS [facility] Last Admin: 05/21/17 21:37 Dose: 20 gm Pantoprazole Sodium (Protonix Ec Tab) 40 mg PO DAILY [facility] Last Admin: 05/22/17 11:00 Dose: 40 mg Rosuvastatin Calcium (Crestor) 10 mg PO HS [facility] Last Admin: 05/21/17 21:37 Dose: 10 mg Sucralfate (Carafate Tab) 1 gm PO BID [facility] Last Admin: 05/22/17 11:00 Dose: 1 gm Vitamin B Complex/Vit C/Folic Acid (Nephro-Naren) 1 tab PO DAILY [facility] Last Admin: 05/22/17 11:00 Dose: 1 tab - Labs Labs: 05/22/17 07:05 05/22/17 07:05 PT 13.8 SECONDS (9.7-12.2) H 05/21/17 07:30 INR 1.2 05/21/17 07:30 APTT 32 SECONDS (21-34) 05/21/17 07:30
[2017-05-22] MEDS: Epoetin Alfa 10,000 unit/ml Dialysis SC SCH (12:30)
--- NOTE | 2017-05-22 13:05 | CP.PCM.PN ---
Subjective - Date & Time of Evaluation Date of Evaluation: 05/22/17 Time of Evaluation: 10:20 - Subjective Subjective: Vascular Surgery Pt S&E, NAEO. Has some LE pain b/l. No other complaint. Objective - Vital Signs/Intake and Output Vital Signs (last 24 hours): Temp Pulse Resp BP Pulse Ox 98.4 F 67 20 144/81 100 05/22/17 07:36 05/22/17 07:36 05/22/17 07:36 05/22/17 07:36 05/22/17 07:36 Intake and Output: 05/22/17 05/22/17 06:59 18:59 Intake Total 400 Balance 400 - Medications Medications: Current Medications Calcium Acetate (Phoslo) 667 mg PO TIDAC [facility] Last Admin: 05/22/17 12:30 Dose: 667 mg Carvedilol (Coreg) 3.125 mg PO BID [facility] Last Admin: 05/22/17 11:00 Dose: 3.125 mg Clopidogrel Bisulfate (Plavix) 75 mg PO DAILY [facility] Last Admin: 05/22/17 11:00 Dose: 75 mg Epoetin Etienne (Procrit) 10,000 unit SC MWF [facility] Last Admin: 05/20/17 10:46 Dose: Not Given Ergocalciferol (Drisdol 50,000 Intl Units Cap) 1 cap PO Q7D [facility] Last Admin: 05/21/17 09:48 Dose: 1 cap Ferrous Gluconate (Fergon) 324 mg PO TID [facility] Last Admin: 05/22/17 11:00 Dose: 324 mg Fluoxetine HCl (Prozac) 20 mg PO DAILY [facility] Last Admin: 05/22/17 11:00 Dose: 20 mg Hydralazine HCl (Apresoline) 25 mg PO Q4 PRN PRN Reason: Other Hydralazine HCl (Apresoline) 50 mg PO BID [facility] Last Admin: 05/22/17 11:00 Dose: 50 mg Piperacillin Sod/Tazobactam Sod (Zosyn 2.25 Gm Iv Premix) 2.25 gm in 50 mls @ 100 mls/hr IVPB Q8H [facility] Last Admin: 05/22/17 11:16 Dose: 100 mls/hr Insulin Aspart (Novolog) 0 unit SC ACHS [facility] PRN Reason: Protocol Last Admin: 05/22/17 12:30 Dose: 2 unit Insulin Glargine (Lantus) 10 unit SC [facility] Last Admin: 05/21/17 21:38 Dose: 10 unit Lactulose (Enulose) 20 gm PO HS [facility] Last Admin: 05/21/17 21:37 Dose: 20 gm Pantoprazole Sodium (Protonix Ec Tab) 40 mg PO DAILY [facility] Last Admin: 05/22/17 11:00 Dose: 40 mg Rosuvastatin Calcium (Crestor) 10 mg PO [facility] Last Admin: 05/21/17 21:37 Dose: 10 mg Sucralfate (Carafate Tab) 1 gm PO BID [facility] Last Admin: 05/22/17 11:00 Dose: 1 gm Vitamin B Complex/Vit C/Folic Acid (Nephro-Naren) 1 tab PO DAILY [facility] Last Admin: 05/22/17 11:00 Dose: 1 tab - Labs Labs: 05/22/17 07:05 05/22/17 07:05 PT 13.8 SECONDS (9.7-12.2) H 05/21/17 07:30 INR 1.2 05/21/17 07:30 APTT 32 SECONDS (21-34) 05/21/17 07:30 - Constitutional Appears: Non-toxic, No Acute Distress - Head Exam Head Exam: ATRAUMATIC, NORMOCEPHALIC - Respiratory Exam Respiratory Exam: NORMAL BREATHING PATTERN. absent: Respiratory Distress - Extremities Exam Additional comments: Dressings on B/L feet with some staining. - Neurological Exam Neurological Exam: Alert, Awake - Skin Skin Exam: Dry, Warm Assessment and Plan - Assessment and Plan (Free Text) Assessment: 67 F with Right heel ulcer s/p angiogram POD #5 with worsening TRINITY from contrast. Plan: TRINITY worse today Nephrology requesting temporary HD cath for possible dialysis tomorrow if renal function worsens. Eventual L angioplasty Eventual R BKA May place temporary cath today, will D/W Dr. Heather Jimenez PGY4
[2017-05-22] MEDS: (Lantus) Insulin Glargine, Recombinant SC SCH (21:29)
--- NOTE | 2017-05-22 23:49 | CP.PCM.PN ---
Subjective - Date & Time of Evaluation Date of Evaluation: 05/22/17 Time of Evaluation: 16:45 - Subjective Subjective: Patient seen and evaluated No cardiac events noted Worsening renal function Possible HD as per Renal Physical examination - Constitutional Appears: Non-toxic, No Acute Distress - Head Exam Head Exam: NORMAL INSPECTION - Eye Exam Eye Exam: EOMI - ENT Exam ENT Exam: Mucous Membranes Moist - Respiratory Exam Respiratory Exam: Clear to Ausculation Bilateral, NORMAL BREATHING PATTERN. absent: Rales, Rhonchi, Wheezes - Cardiovascular Exam Cardiovascular Exam: REGULAR RHYTHM, +S1, +S2. absent: Gallop, Rubs, Murmur - GI/Abdominal Exam GI & Abdominal Exam: Soft, Normal Bowel Sounds. absent: Tenderness - Extremities Exam Extremities Exam: Pedal Edema Additional comments: pitting edema and venous stasis changes to mid calf b/l negative Shiloh's Warm toes b/l Right heel wrapped in clean bandage odorous feet - Neurological Exam Neurological Exam: Alert, Awake, Oriented x3 - Psychiatric Exam Psychiatric exam: Normal Affect, Normal Mood - Skin Skin Exam: Normal Color, Warm Objective - Vital Signs/Intake and Output Vital Signs (last 24 hours): Temp Pulse Resp BP Pulse Ox 97.6 F 67 20 144/81 98 05/22/17 15:00 05/22/17 16:01 05/22/17 15:00 05/22/17 16:01 05/22/17 16:01 Intake and Output: 05/22/17 05/23/17 18:59 06:59 Intake Total 410 300 Balance 410 300 - Medications Medications: Current Medications Calcium Acetate (Phoslo) 667 mg PO TIDAC [facility] Last Admin: 05/22/17 17:30 Dose: 667 mg Carvedilol (Coreg) 3.125 mg PO BID [facility] Last Admin: 05/22/17 17:41 Dose: 3.125 mg Clopidogrel Bisulfate (Plavix) 75 mg PO DAILY [facility] Last Admin: 05/22/17 11:00 Dose: 75 mg Epoetin Etienne (Procrit) 10,000 unit SC MWF [facility] Last Admin: 05/22/17 12:30 Dose: 10,000 unit Ergocalciferol (Drisdol 50,000 Intl Units Cap) 1 cap PO Q7D [facility] Last Admin: 05/21/17 09:48 Dose: 1 cap Ferrous Gluconate (Fergon) 324 mg PO TID [facility] Last Admin: 05/22/17 17:41 Dose: 324 mg Fluoxetine HCl (Prozac) 20 mg PO DAILY [facility] Last Admin: 05/22/17 11:00 Dose: 20 mg Hydralazine HCl (Apresoline) 25 mg PO Q4 PRN PRN Reason: Other Hydralazine HCl (Apresoline) 50 mg PO BID [facility] Last Admin: 05/22/17 17:41 Dose: 50 mg Piperacillin Sod/Tazobactam Sod (Zosyn 2.25 Gm Iv Premix) 2.25 gm in 50 mls @ 100 mls/hr IVPB Q8H [facility] Last Admin: 05/22/17 19:00 Dose: 100 mls/hr Insulin Aspart (Novolog) 0 unit SC ACHS [facility] PRN Reason: Protocol Last Admin: 05/22/17 22:02 Dose: Not Given Insulin Glargine (Lantus) 10 unit SC HS [facility] Last Admin: 05/22/17 21:29 Dose: 10 unit Lactulose (Enulose) 20 gm PO HS [facility] Last Admin: 05/22/17 21:23 Dose: 20 gm Pantoprazole Sodium (Protonix Ec Tab) 40 mg PO DAILY [facility] Last Admin: 05/22/17 11:00 Dose: 40 mg Rosuvastatin Calcium (Crestor) 10 mg PO HS [facility] Last Admin: 05/22/17 21:24 Dose: 10 mg Sucralfate (Carafate Tab) 1 gm PO BID [facility] Last Admin: 05/22/17 17:41 Dose: 1 gm Vitamin B Complex/Vit C/Folic Acid (Nephro-Naren) 1 tab PO DAILY [facility] Last Admin: 05/22/17 11:00 Dose: 1 tab - Labs Labs: 05/22/17 07:05 05/22/17 07:05 PT 13.8 SECONDS (9.7-12.2) H 05/21/17 07:30 INR 1.2 05/21/17 07:30 APTT 32 SECONDS (21-34) 05/21/17 07:30 Assessment and Plan - Assessment and Plan (Free Text) Assessment: Acute on Chronic ESRD Dailysis MWF Procrit [facility] Nephrology consult - Dr. Jett - help appreciated Phoslo 667mg PO TID DMII F/U HgbA1C Lantus 10U SC HS Novolog 70/30 ISS H/O CVA Plavix 75mg PO daily H/O PVD with stents Plavix 75mg PO daily Warfarin 5mg PO HS INR 2.4 F/U INR daily H/O CHF Lasix 40mg PO daily No B-kam secondary to bradycardia Starting Lisinopril 10mg PO daily H/O Hyperlipidemia Converting home med of lipitor 20mg PO daily to formulary Depression Prozac 20mg PO daily Prophylaxis Protonix 40mg PO daily Sucralfate Warfarin Plavix
[2017-05-23] MEDS: Piperacill/Tazo 2.25gm in Dex 2.25 GM/50 ML BAG IVPB SCH ×3 (02:57→22:33)
[2017-05-23 07:12] LABS: BASO % 0.2 % (0.0-2.0); EOS # 0.3 K/uL (0.0-0.7); HEMATOCRIT 30.3 % (34.0-47.0); LYMPH # 0.9 K/uL (1.0-4.3); LYMPH % 12.7 % (20.0-40.0); MEAN CELL VOLUME 94.7 fL (81.0-99.0); MEAN CORPUSCULAR HEMOGLOBIN 28.6 pg (27.0-31.0); MEAN CORPUSCULAR HGB CONC 30.3 g/dL (33.0-37.0); MEAN PLATELET VOLUME 8.9 fL (7.2-11.7); MONO # 0.9 K/uL (0.0-0.8); NRBC % 0.3 % (0.0-2.0); WHITE BLOOD COUNT 7.2 K/uL (4.8-10.8)
[2017-05-23 07:43] LABS: CALCIUM 7.9 mg/dl (8.6-10.4); PHOSPHOROUS 6.6 mg/dL (2.5-4.5); POTASSIUM 5.3 mmol/L (3.6-5.2)
[2017-05-23] MEDS: (Novolog) Insulin Aspart, Recombinant 100 u/ml 10 ml vial SC SCH ×4 (08:30→22:17)
[2017-05-23] MEDS: Multivitamin Vitamin B Complex (Nephro-Vite) Tab PO SCH (11:06)
[2017-05-23] MEDS: Pantoprazole 40 mg EC Tab PO SCH (11:06)
--- NOTE | 2017-05-23 12:27 | CP.PCM.PN ---
Subjective - Date & Time of Evaluation Date of Evaluation: 05/23/17 Time of Evaluation: 12:23 - Subjective Subjective: Follow up Nephrology Consultation: Assessment: worsening Acute Kidney Injury likely contrast induced nephropathy: worsening Non-healing ulcer on heel with celluliits Diabetic chronic Kidney Disease (E11.22) Hypertensive Chronic Kidney Disease (I12.9) Chronic Kidney Disease (N18.4) Stage 4 with 500 mg proteinuria (R80.9) possibly due to DM and or HTN Anemia (D64.9), Hyperphosphatemia (E83.39), HTN (I12.9) systolic CHF, Morbid obesity, PVD, depression Mild Hyperkalemia Plan renal replacement therapy indicated now considering her worsening renal function , other co-morbs including CHF, need for other invasive interventions such as cardiac cath, leg amputation/PVD intervention. please consult vascular surgery for temporary dialysis access and then will initiate dialysis today. further exposure to iodinated contrast IV may reduce the chances of spontaneous renal recovery but may be needed to facilitate diagnostic and therapeutic interventions for CAD, PVD. Please assess risk versus benefit. continue to monitor for renal function and I/O closely. Hypertension control with meds as ordered. continue with low dose coreg, hydralazine 50 mg bid. continue with her home dose epogen (hold if Hb>11) and phoslo continue with vit D and oral iron supplementation ID and vascular surgery following Dose meds/antibiotics for reduced GFR <10. Avoid fleets enema/magnesium based laxatives. Avoid nephrotoxins/NSAIDs Glycemic control Further work up/management as per primary team Thanks for allowing me to participate in care of your patient. Will follow patient with you. Please call if any Qs. d/w team Dr Juan Torres Office: [phone] HPI: Pt is a 67 y/o F with hx of diabetes Mellitus hypertension, CHF, chronic anemia, hyperphos, DVT on coumadin, drpression, obesity, dementia, CVA, CKD ? stage and a half-way resident at [facility] presented with complaints of non healing ulcer Rt heel. Used [employer] for creole interpretation. ROS: She Denies chest pain, palpitation, shortness of breath. has urinary complaints as decreased urine output Physical Examination: General Appearance: Comfortable, in no acute respiratory distress, co-operative . obese Vitals reviewed and noted as below Lungs: Normal respiratory rate/effort. Breath sounds bilateral equal and has basal rales + Heart: Normal rate. s1s2 normal. No rub or gallop. Extremities: 1-2+ edema. No varicose veins. has chronic venous stasis changes. both feets in dressings. LUE swelling + Neurological: Patient is alert, awake and not oriented to person, place or time. ? has dementia. No focal deficit. Strength bilateral appropriate and equal Skin: Warm and dry. Normal turgor. No rash. Palpitation: Normal elasticity for age Abdomen: Abdomen is soft. Bowel sounds +. There is no abdominal tenderness, no guarding/rigidity no organomegaly. she is obese Psych: lack insight MSK: no joint tenderness or swelling. Digits and nails normal, no deformity : kidney or bladder not palpable Labs/imaging/EKG reviewed. Past medical history, past surgical history, family history, social history, allergy reviewed and noted as below Family hx: no hx of CKD. Rest non-contributory Objective - Vital Signs/Intake and Output Vital Signs (last 24 hours): Temp Pulse Resp BP Pulse Ox 98.7 F 71 20 146/79 97 05/23/17 07:59 05/23/17 07:59 05/23/17 07:59 05/23/17 07:59 05/23/17 07:59 Intake and Output: 05/23/17 05/23/17 06:59 18:59 Intake Total 300 Balance 300 - Medications Medications: Current Medications Calcium Acetate (Phoslo) 667 mg PO TIDAC [facility] Last Admin: 05/23/17 11:06 Dose: Not Given Carvedilol (Coreg) 3.125 mg PO BID [facility] Last Admin: 05/23/17 11:05 Dose: Not Given Clopidogrel Bisulfate (Plavix) 75 mg PO DAILY [facility] Last Admin: 05/23/17 11:06 Dose: Not Given Epoetin Etienne (Procrit) 10,000 unit SC MWF [facility] Last Admin: 05/22/17 12:30 Dose: 10,000 unit Ergocalciferol (Drisdol 50,000 Intl Units Cap) 1 cap PO Q7D [facility] Last Admin: 05/21/17 09:48 Dose: 1 cap Ferrous Gluconate (Fergon) 324 mg PO TID [facility] Last Admin: 05/23/17 11:05 Dose: Not Given Fluoxetine HCl (Prozac) 20 mg PO DAILY [facility] Last Admin: 05/23/17 11:06 Dose: Not Given Hydralazine HCl (Apresoline) 25 mg PO Q4 PRN PRN Reason: Other Hydralazine HCl (Apresoline) 50 mg PO BID [facility] Last Admin: 05/23/17 11:05 Dose: Not Given Piperacillin Sod/Tazobactam Sod (Zosyn 2.25 Gm Iv Premix) 2.25 gm in 50 mls @ 100 mls/hr IVPB Q8H [facility] Last Admin: 05/23/17 11:02 Dose: 100 mls/hr Insulin Aspart (Novolog) 0 unit SC ACHS [facility] PRN Reason: Protocol Last Admin: 05/23/17 08:30 Dose: Not Given Insulin Glargine (Lantus) 10 unit SC HS [facility] Last Admin: 05/22/17 21:29 Dose: 10 unit Lactulose (Enulose) 20 gm PO HS [facility] Last Admin: 05/22/17 21:23 Dose: 20 gm Pantoprazole Sodium (Protonix Ec Tab) 40 mg PO DAILY [facility] Last Admin: 05/23/17 11:06 Dose: Not Given Rosuvastatin Calcium (Crestor) 10 mg PO HS [facility] Last Admin: 05/22/17 21:24 Dose: 10 mg Sucralfate (Carafate Tab) 1 gm PO BID [facility] Last Admin: 05/23/17 11:05 Dose: Not Given Vitamin B Complex/Vit C/Folic Acid (Nephro-Naren) 1 tab PO DAILY [facility] Last Admin: 05/23/17 11:06 Dose: Not Given - Labs Labs: 05/23/17 07:04 05/23/17 07:04 PT 13.8 SECONDS (9.7-12.2) H 05/21/17 07:30 INR 1.2 05/21/17 07:30 APTT 32 SECONDS (21-34) 05/21/17 07:30
--- NOTE | 2017-05-23 14:51 | CP.PCM.PN ---
Subjective - Date & Time of Evaluation Date of Evaluation: 05/23/17 Time of Evaluation: 14:50 - Subjective Subjective: Progress note. Attending: Dr. Denis Pt seen and examined at bedside. No acute distress. No current complaints. No fevers, chills, vomiting, diarrhea, cp, sob. Pending ICD/lifevest. Access pending for emergent HD. Objective - Vital Signs/Intake and Output Vital Signs (last 24 hours): Temp Pulse Resp BP Pulse Ox 98.7 F 72 20 153/84 H 97 05/23/17 07:59 05/23/17 12:35 05/23/17 07:59 05/23/17 12:35 05/23/17 07:59 Intake and Output: 05/23/17 05/23/17 06:59 18:59 Intake Total 300 Balance 300 - Medications Medications: Current Medications Calcium Acetate (Phoslo) 667 mg PO TIDAC [facility] Last Admin: 05/23/17 11:06 Dose: Not Given Carvedilol (Coreg) 3.125 mg PO BID [facility] Last Admin: 05/23/17 12:37 Dose: 3.125 mg Clopidogrel Bisulfate (Plavix) 75 mg PO DAILY [facility] Last Admin: 05/23/17 11:06 Dose: Not Given Epoetin Etienne (Procrit) 10,000 unit SC MWF [facility] Last Admin: 05/22/17 12:30 Dose: 10,000 unit Ergocalciferol (Drisdol 50,000 Intl Units Cap) 1 cap PO Q7D [facility] Last Admin: 05/21/17 09:48 Dose: 1 cap Ferrous Gluconate (Fergon) 324 mg PO TID [facility] Last Admin: 05/23/17 11:05 Dose: Not Given Fluoxetine HCl (Prozac) 20 mg PO DAILY [facility] Last Admin: 05/23/17 11:06 Dose: Not Given Hydralazine HCl (Apresoline) 25 mg PO Q4 PRN PRN Reason: Other Hydralazine HCl (Apresoline) 50 mg PO BID [facility] Last Admin: 05/23/17 11:05 Dose: Not Given Piperacillin Sod/Tazobactam Sod (Zosyn 2.25 Gm Iv Premix) 2.25 gm in 50 mls @ 100 mls/hr IVPB Q8H [facility] Last Admin: 05/23/17 11:02 Dose: 100 mls/hr Insulin Aspart (Novolog) 0 unit SC [facility] PRN Reason: Protocol Last Admin: 05/23/17 12:22 Dose: Not Given Insulin Glargine (Lantus) 10 unit SC [facility] Last Admin: 05/22/17 21:29 Dose: 10 unit Lactulose (Enulose) 20 gm PO HS [facility] Last Admin: 05/22/17 21:23 Dose: 20 gm Pantoprazole Sodium (Protonix Ec Tab) 40 mg PO DAILY [facility] Last Admin: 05/23/17 11:06 Dose: Not Given Rosuvastatin Calcium (Crestor) 10 mg PO [facility] Last Admin: 05/22/17 21:24 Dose: 10 mg Sucralfate (Carafate Tab) 1 gm PO BID [facility] Last Admin: 05/23/17 11:05 Dose: Not Given Vitamin B Complex/Vit C/Folic Acid (Nephro-Naren) 1 tab PO DAILY [facility] Last Admin: 05/23/17 11:06 Dose: Not Given - Labs Labs: 05/23/17 07:04 05/23/17 07:04 PT 13.8 SECONDS (9.7-12.2) H 05/21/17 07:30 INR 1.2 05/21/17 07:30 APTT 32 SECONDS (21-34) 05/21/17 07:30 - Constitutional Appears: Non-toxic, No Acute Distress - Head Exam Head Exam: ATRAUMATIC, NORMAL INSPECTION, NORMOCEPHALIC - Eye Exam Eye Exam: EOMI - ENT Exam ENT Exam: absent: Mucous Membranes Moist - Neck Exam Neck Exam: Full ROM, Normal Inspection - Respiratory Exam Respiratory Exam: NORMAL BREATHING PATTERN. absent: Respiratory Distress - Cardiovascular Exam Cardiovascular Exam: +S1, +S2 - GI/Abdominal Exam GI & Abdominal Exam: Soft, Normal Bowel Sounds. absent: Tenderness - Extremities Exam Extremities Exam: absent: Full ROM, Normal Inspection Additional comments: dressing clean dry intact - Neurological Exam Neurological Exam: Alert, Awake, Oriented x3 - Psychiatric Exam Psychiatric exam: Flat Affect - Skin Skin Exam: Dry, Intact, Normal Color, Warm Assessment and Plan - Assessment and Plan (Free Text) Assessment: This is a 67 yo female with Right Diabetic Heel Ulcer -Right foot X ray shows no evidence of osteomyelitis -Cefepime and vancomycin given in ER -ID consult - Dr. Nunez - recs appreciated. -Continue Zosyn 2.25gm IV q8h (started on 05/13) -Discontinued Vanco -Vascular Surgery consult - Dr. Romero - f/u recs -Wound Care Nurse consult -Percocet 5/325mg PO Q4H PRN pain -05/13 right ankle wound culture POSITIVE for proteus and staph aureus -Blood culture + coag neg staph aureus Acute on Chronic Kidney Disease -CR up today to 7.1 Plan for emergent HD today -Nephrology consult - Dr. Torres - help appreciated -Procrit MWF -Phoslo 667mg PO TID -Avoid nephrotoxins/NSAIDs/ iodinated contrast (unless needed emergently) -urine studies ordered: urine total protein elevated, urine random CR normal -05/13 Renal US: medical renal disease Systolic CHF -ECHO: moderate LV systolic dysfunction (EF 35%), dilated LA, mild MR, moderate to severe TR -Lens Examiner recommends patient receive LifeVest pending ICD evaluation -Low dose coreg 3.125mg PO BID (monitor for bradycardia) -Avoid WILMA-I due to renal disease Pedal Edema and PVD -Chronic -Vascular Surgery consult - Dr. Romero -help appreciated -s/p angiogram POD #6 -keep legs elevated Hx of HTN -BP elevated, avoid wilma at this time -Added Hydralazine 50mg PO BID on 05/21 per electronic equipment repairmen, help appreciated -low dose coreg 3.125 mg PO BID (monitor for bradycardia) -Monitor vitals q4h H/O PVD with stents -Plavix 75mg PO daily -Warfarin held due to pending procedures -F/U INR daily -Lens Examiner Dr Ledesma consulted for cardiac clearance pending further procedures. Stress test and ECHO done showed LV EF 35%. The patient needs a cardiac cath prior to any other procedure. Cath can not be done at this time due to TRINITY. Patient is high risk for any procedure. Insulin dependent DMII -HgbA1C 10.3 -Lantus 10 units SC HS -Novolog 70/30 ISS -Accuchecks Anemia -stable -normocytic -Likely secondary to chronic kidney disease -Iron 30, TIBC 373, % sat 8, ferritin 42 -Continue Procrit MWF -Monitor CBC daily -continue ferrous gluconate 324 TID H/O CVA -Plavix 75 mg PO daily -PT evaluation- recommend TROY upon discharge -Fall risk protocol H/O Hyperlipidemia -continue crestor 10 mg PO HS Depression -Prozac 20mg PO daily -Denies suicidal/homicidal ideations at this time Vitamin D deficiency -Vit D 20.8 -continue Ergocalciferol 50,000 units qweekly Prophylaxis -Protonix 40mg PO daily -Sucralfate -Warfarin held Discussed with Dr. Denis
[2017-05-23] MEDS ORDERED: Sodium Chloride 0.9% 500 ML IV ONE (16:09)
[2017-05-23] MEDS ORDERED: Lidocaine 1% Inj (20ml) ONE (16:15)
[2017-05-23] MEDS ORDERED: Iodixanol 320 MG/ML 200 ML BOTTLE IV ONE (16:15)
[2017-05-23] MEDS ORDERED: HEPARIN-NS 5,000 UNITS/500 ML 5,000 UNIT/500 ML BAG IV ONE (16:15)
[2017-05-23] MEDS ORDERED: Midazolam 2 MG/2 ML VIAL ONE (16:16)
--- NOTE | 2017-05-23 18:49 | PCM.SURG1 ---
Surgeon's Initial Post Op Note - Surgeon's Notes Surgeon: Heather Director Of Recruitment: PGY4 Type of Anesthesia: IV Sedation, Local Pre-Operative Diagnosis: ESRD Operative Findings: good placement of permacath Post-Operative Diagnosis: ESRD Operation Performed: Insertion of R IJ permacath Specimen/Specimens Removed: NA Estimated Blood Loss: EBL {In ML}: 25 Blood Products Given: N/A Drains Used: No Drains Post-Op Condition: Good Date of Surgery/Procedure: 05/23/17 Time of Surgery/Procedure: 16:00
--- NOTE | 2017-05-23 21:28 | CP.PCM.PN ---
Subjective - Date & Time of Evaluation Date of Evaluation: 05/23/17 Time of Evaluation: 13:10 - Subjective Subjective: Patient seen and evaluated For Permacath today Patient will go on HD Possible cath Bridgett Physical examination - Constitutional Appears: Non-toxic, No Acute Distress - Head Exam Head Exam: NORMAL INSPECTION - Eye Exam Eye Exam: EOMI - ENT Exam ENT Exam: Mucous Membranes Moist - Respiratory Exam Respiratory Exam: Clear to Ausculation Bilateral, NORMAL BREATHING PATTERN. absent: Rales, Rhonchi, Wheezes - Cardiovascular Exam Cardiovascular Exam: REGULAR RHYTHM, +S1, +S2. absent: Gallop, Rubs, Murmur - GI/Abdominal Exam GI & Abdominal Exam: Soft, Normal Bowel Sounds. absent: Tenderness - Extremities Exam Extremities Exam: Pedal Edema Additional comments: pitting edema and venous stasis changes to mid calf b/l negative Shiloh's Warm toes b/l Right heel wrapped in clean bandage odorous feet - Neurological Exam Neurological Exam: Alert, Awake, Oriented x3 - Psychiatric Exam Psychiatric exam: Normal Affect, Normal Mood - Skin Skin Exam: Normal Color, Warm Objective - Vital Signs/Intake and Output Vital Signs (last 24 hours): Temp Pulse Resp BP Pulse Ox 97.8 F 76 16 157/82 H 97 05/23/17 19:45 05/23/17 20:20 05/23/17 20:20 05/23/17 20:20 05/23/17 20:20 Intake and Output: 05/23/17 05/24/17 18:59 06:59 Intake Total 50 150 Balance 50 150 - Medications Medications: Current Medications Calcium Acetate (Phoslo) 667 mg PO TIDAC [facility] Last Admin: 05/23/17 11:06 Dose: Not Given Carvedilol (Coreg) 3.125 mg PO BID [facility] Last Admin: 05/23/17 12:37 Dose: 3.125 mg Clopidogrel Bisulfate (Plavix) 75 mg PO DAILY [facility] Last Admin: 05/23/17 11:06 Dose: Not Given Epoetin Etienne (Procrit) 10,000 unit SC MWF [facility] Last Admin: 05/22/17 12:30 Dose: 10,000 unit Ergocalciferol (Drisdol 50,000 Intl Units Cap) 1 cap PO Q7D [facility] Last Admin: 05/21/17 09:48 Dose: 1 cap Ferrous Gluconate (Fergon) 324 mg PO TID [facility] Last Admin: 05/23/17 15:00 Dose: Not Given Fluoxetine HCl (Prozac) 20 mg PO DAILY [facility] Last Admin: 05/23/17 11:06 Dose: Not Given Hydralazine HCl (Apresoline) 25 mg PO Q4 PRN PRN Reason: Other Hydralazine HCl (Apresoline) 50 mg PO BID [facility] Last Admin: 05/23/17 11:05 Dose: Not Given Piperacillin Sod/Tazobactam Sod (Zosyn 2.25 Gm Iv Premix) 2.25 gm in 50 mls @ 100 mls/hr IVPB Q8H [facility] Last Admin: 05/23/17 11:02 Dose: 100 mls/hr Insulin Aspart (Novolog) 0 unit SC ACHS [facility] PRN Reason: Protocol Last Admin: 05/23/17 12:22 Dose: Not Given Insulin Glargine (Lantus) 10 unit SC [facility] Last Admin: 05/22/17 21:29 Dose: 10 unit Lactulose (Enulose) 20 gm PO HS [facility] Last Admin: 05/22/17 21:23 Dose: 20 gm Pantoprazole Sodium (Protonix Ec Tab) 40 mg PO DAILY [facility] Last Admin: 05/23/17 11:06 Dose: Not Given Rosuvastatin Calcium (Crestor) 10 mg PO [facility] Last Admin: 05/22/17 21:24 Dose: 10 mg Sucralfate (Carafate Tab) 1 gm PO BID [facility] Last Admin: 05/23/17 11:05 Dose: Not Given Vitamin B Complex/Vit C/Folic Acid (Nephro-Naren) 1 tab PO DAILY [facility] Last Admin: 05/23/17 11:06 Dose: Not Given - Labs Labs: 05/23/17 07:04 05/23/17 07:04 PT 13.8 SECONDS (9.7-12.2) H 05/21/17 07:30 INR 1.2 05/21/17 07:30 APTT 32 SECONDS (21-34) 05/21/17 07:30 Assessment and Plan - Assessment and Plan (Free Text) Assessment: Acute on Chronic ESRD Dailysis MWF Procrit [facility] Nephrology consult - Dr. Jett - help appreciated Phoslo 667mg PO TID DMII F/U HgbA1C Lantus 10U SC HS Novolog 70/30 ISS H/O CVA Plavix 75mg PO daily H/O PVD with stents Plavix 75mg PO daily Warfarin 5mg PO HS INR 2.4 F/U INR daily H/O CHF Lasix 40mg PO daily No B-kam secondary to bradycardia Starting Lisinopril 10mg PO daily H/O Hyperlipidemia Converting home med of lipitor 20mg PO daily to formulary Depression Prozac 20mg PO daily Prophylaxis Protonix 40mg PO daily Sucralfate Warfarin Plavix
[2017-05-23] MEDS: (Lantus) Insulin Glargine, Recombinant SC SCH (22:31)
--- NOTE | 2017-05-24 01:28 | OP ---
PROCEDURE DATE: 05/23/2017 PREOPERATIVE DIAGNOSIS: Renal failure. POSTOPERATIVE DIAGNOSIS: Renal failure. PROCEDURE CARRIED OUT: Placement of Perm-A-Cath, right jugular vein with C-arm fluoroscopy, ultrasound-guided puncture, and micropuncture technique. SURGEON: Devon Romero Jr., MD. ASSURANCE SENIOR: Dr. Jimenez. ANESTHESIOLOGIST: Marika Melara CRNA. INDICATIONS: The patient is an elderly woman with recent angiogram, has developed renal insufficiency postoperatively despite all the preventive measures that were available. OPERATIVE FINDINGS: Catheter was inserted uneventfully via the jugular vein. DESCRIPTION OF PROCEDURE: After the skin prepping and draping, the patient in the standard appropriate fashion; using ultrasound guidance and micropuncture technique, the right jugular vein was punctured. Under fluoroscopic control, guidewire was advanced centrally. This was subsequently substituted for an 0.35 wire. A sheath dilator was passed over this. The catheter was then positioned with the tip adjacent to the right atrium and superior vena cava. The procedure was terminated with excellent return and excellent flow. It was flushed with heparinized saline. Blood loss for the procedure was approximately 50 to 100 mL. Operation carried out is Perm-A-Cath, right jugular vein with C-arm fluoroscopy, ultrasound-guided puncture, and micropuncture technique. The catheter originated on the chest wall and terminated in the superior vena cava on the right side. Devon Romero Jr., MD
[2017-05-24] MEDS: Piperacill/Tazo 2.25gm in Dex 2.25 GM/50 ML BAG IVPB SCH ×3 (02:12→18:00)
--- NOTE | 2017-05-24 08:04 | RAD ---
HISTORY: Permacath right IJ insertion COMPARISON: Portable chest 03/20/2014. FINDINGS: An interval tunneled right central venous dialysis catheter is in place with the tip terminating at the distal superior cava. No pneumothorax is appreciated bilaterally. LUNGS: Moderate left perihilar airspace disease now identified and possibly also the right infrahilar space with the hilar vascular markings appearing somewhat prominent centrally, potentially reflecting possible pulmonary venous congestion. Clinically correlate. PLEURA: No significant pleural effusion identified, no pneumothorax apparent. CARDIOVASCULAR: Cardiomegaly is again identified. Pulmonary venous congestion pattern is discussed above. OSSEOUS STRUCTURES: No significant abnormalities. VISUALIZED UPPER ABDOMEN: Normal. OTHER FINDINGS: None. IMPRESSION: 1. Interval total right center venous catheter placement is noted. No pneumothorax. 2. Mild pulmonary venous congestion in question. Bilateral perihilar airspace disease is identified. No pleural effusion bilaterally.
[2017-05-24 08:15] LABS: BASO % 0.2 % (0.0-2.0); EOS # 0.3 K/uL (0.0-0.7); HEMATOCRIT 28.9 % (34.0-47.0); LYMPH # 0.6 K/uL (1.0-4.3); LYMPH % 7.4 % (20.0-40.0); MEAN CELL VOLUME 93.6 fL (81.0-99.0); MEAN CORPUSCULAR HEMOGLOBIN 29.4 pg (27.0-31.0); MEAN CORPUSCULAR HGB CONC 31.4 g/dL (33.0-37.0); MEAN PLATELET VOLUME 8.9 fL (7.2-11.7); MONO # 0.8 K/uL (0.0-0.8); MONO % 9.7 % (0.0-10.0); NRBC % 0.2 % (0.0-2.0); PLATELET COUNT 171 K/uL (130-400); WHITE BLOOD COUNT 8.6 K/uL (4.8-10.8)
[2017-05-24] MEDS: (Novolog) Insulin Aspart, Recombinant 100 u/ml 10 ml vial SC SCH ×4 (08:38→21:52)
[2017-05-24 08:41] LABS: BILIRUBIN,TOTAL 0.7 mg/dL (0.2-1.3); CALCIUM 7.9 mg/dl (8.6-10.4); MAGNESIUM 1.9 mg/dL (1.6-2.3)
--- NOTE | 2017-05-24 08:53 | RAD ---
PROCEDURE: Intraoperative Fluoroscopy. HISTORY: RENAL FAILURE FINDINGS: Fluoroscopic assistance was provided for right central venous catheter placement. Please refer to the operative report from
[2017-05-24 09:30] LABS: EOSINOPHIL 3 % (0-4); NEUTROPHIL 78 % (50-75); TOTAL CELLS COUNTED 100
[2017-05-24 09:35] LABS: LARGE PLATELETS PRESENT
--- NOTE | 2017-05-24 10:04 | CP.PCM.PN ---
Subjective - Date & Time of Evaluation Date of Evaluation: 05/24/17 Time of Evaluation: 10:01 - Subjective Subjective: Medicine Progress Note- Dr Denis's service Patient seen and examined. Patient is POD #1 s/p RIJ catheter placement for emergent dialysis. The patient had dialysis yesterday and tolerated the procedure well. No acute events overnight. Patient denies chest pain and shortness of breath. Objective - Vital Signs/Intake and Output Vital Signs (last 24 hours): Temp Pulse Resp BP Pulse Ox 97.8 F 93 H 18 176/69 H 95 05/24/17 07:15 05/24/17 07:15 05/24/17 07:15 05/24/17 07:15 05/24/17 07:15 Intake and Output: 05/24/17 05/24/17 06:59 18:59 Intake Total 150 Balance 150 - Medications Medications: Current Medications Calcium Acetate (Phoslo) 667 mg PO TIDAC [facility] Last Admin: 05/24/17 08:38 Dose: 667 mg Carvedilol (Coreg) 3.125 mg PO BID [facility] Last Admin: 05/23/17 18:00 Dose: Not Given Clopidogrel Bisulfate (Plavix) 75 mg PO DAILY [facility] Last Admin: 05/23/17 11:06 Dose: Not Given Epoetin Etienne (Procrit) 10,000 unit SC MWF [facility] Last Admin: 05/22/17 12:30 Dose: 10,000 unit Ergocalciferol (Drisdol 50,000 Intl Units Cap) 1 cap PO Q7D [facility] Last Admin: 05/21/17 09:48 Dose: 1 cap Ferrous Gluconate (Fergon) 324 mg PO TID [facility] Last Admin: 05/23/17 18:00 Dose: Not Given Fluoxetine HCl (Prozac) 20 mg PO DAILY [facility] Last Admin: 05/23/17 11:06 Dose: Not Given Hydralazine HCl (Apresoline) 25 mg PO Q4 PRN PRN Reason: Other Hydralazine HCl (Apresoline) 50 mg PO BID [facility] Last Admin: 05/23/17 18:00 Dose: Not Given Piperacillin Sod/Tazobactam Sod (Zosyn 2.25 Gm Iv Premix) 2.25 gm in 50 mls @ 100 mls/hr IVPB Q8H [facility] Last Admin: 05/24/17 02:12 Dose: 100 mls/hr Insulin Aspart (Novolog) 0 unit SC [facility] PRN Reason: Protocol Last Admin: 05/24/17 08:38 Dose: 2 unit Insulin Glargine (Lantus) 10 unit SC [facility] Last Admin: 05/23/17 22:31 Dose: Not Given Lactulose (Enulose) 20 gm PO [facility] Last Admin: 05/23/17 22:30 Dose: Not Given Pantoprazole Sodium (Protonix Ec Tab) 40 mg PO DAILY [facility] Last Admin: 05/23/17 11:06 Dose: Not Given Rosuvastatin Calcium (Crestor) 10 mg PO [facility] Last Admin: 05/23/17 22:30 Dose: Not Given Sucralfate (Carafate Tab) 1 gm PO BID [facility] Last Admin: 05/23/17 18:00 Dose: Not Given Vitamin B Complex/Vit C/Folic Acid (Nephro-Naren) 1 tab PO DAILY [facility] Last Admin: 05/23/17 11:06 Dose: Not Given - Labs Labs: 05/24/17 08:08 05/24/17 08:08 PT 13.8 SECONDS (9.7-12.2) H 05/21/17 07:30 INR 1.2 05/21/17 07:30 APTT 32 SECONDS (21-34) 05/21/17 07:30 - Constitutional Appears: Non-toxic, No Acute Distress - Head Exam Head Exam: ATRAUMATIC, NORMOCEPHALIC - Eye Exam Eye Exam: EOMI, Normal appearance - ENT Exam ENT Exam: Mucous Membranes Moist - Respiratory Exam Respiratory Exam: Clear to Ausculation Bilateral, NORMAL BREATHING PATTERN. absent: Rhonchi, Wheezes, Respiratory Distress - Cardiovascular Exam Cardiovascular Exam: REGULAR RHYTHM, +S1, +S2. absent: Irregular Rhythm - GI/Abdominal Exam GI & Abdominal Exam: Soft, Normal Bowel Sounds. absent: Distended, Firm, Guarding, Rigid, Tenderness - Extremities Exam Extremities Exam: Pedal Edema (edema to bilateral knees, chronic skin changes, dressing dry and clean ) - Neurological Exam Neurological Exam: Alert, Awake, Oriented x3 - Psychiatric Exam Psychiatric exam: Normal Affect, Normal Mood - Skin Skin Exam: Dry, Warm Assessment and Plan - Assessment and Plan (Free Text) Assessment: Right Diabetic Heel Ulcer -Right foot X ray shows no evidence of osteomyelitis -Cefepime and vancomycin given in ER -ID consult - Dr. Nunez - recs appreciated. -Continue Zosyn 2.25gm IV q8h (started on 05/13) -Discontinued Vanco -Vascular Surgery consult - Dr. Romero -Wound Care Nurse consult -Percocet 5/325mg PO Q4H PRN pain -05/13 right ankle wound culture POSITIVE for proteus and staph aureus -Blood culture + coag neg staph aureus Acute on Chronic Kidney Disease -POD#1 s/p placement of R IJ catheter by Dr Romero- emergent dialysis done yesterday. Cr improved to 6.5 post dialysis -Nephrology consult - Dr. Torres - help appreciated -Procrit MWF -Phoslo 667mg PO TID -Avoid nephrotoxins/NSAIDs/ iodinated contrast (unless needed emergently) -urine studies ordered: urine total protein elevated, urine random CR normal -05/13 Renal US: medical renal disease Systolic CHF -ECHO: moderate LV systolic dysfunction (EF 35%), dilated LA, mild MR, moderate to severe TR -Hydraulics Engineer recommends patient receive LifeVest pending ICD evaluation -Low dose coreg 3.125mg PO BID (monitor for bradycardia) -Avoid WILMA-I due to renal disease Pedal Edema and PVD -Chronic -Vascular Surgery consult - Dr. Romero -help appreciated -s/p angiogram -keep legs elevated Hx of HTN -BP elevated, avoid wilma at this time -Added Hydralazine 50mg PO BID on 05/21 per storage battery tester, osei appreciated -low dose coreg 3.125 mg PO BID (monitor for bradycardia) -Monitor vitals q4h H/O PVD with stents -Plavix 75mg PO daily -Warfarin held due to pending procedures -F/U INR daily -Hydraulics Engineer Dr Ledesma consulted for cardiac clearance pending further procedures. Stress test and ECHO done showed LV EF 35%. The patient needs a cardiac cath prior to any other procedure. Cath can not be done at this time due to TRINITY. Patient is high risk for any procedure. Insulin dependent DMII -HgbA1C 10.3 -Lantus 10 units SC HS -Novolog 70/30 ISS -Accuchecks Anemia -stable -normocytic -Likely secondary to chronic kidney disease -Iron 30, TIBC 373, % sat 8, ferritin 42 -Continue Procrit MWF -Monitor CBC daily -continue ferrous gluconate 324 TID H/O CVA -Plavix 75 mg PO daily -PT evaluation- recommend TROY upon discharge -Fall risk protocol H/O Hyperlipidemia -continue crestor 10 mg PO HS Depression -Prozac 20mg PO daily -Denies suicidal/homicidal ideations at this time Vitamin D deficiency -Vit D 20.8 -continue Ergocalciferol 50,000 units qweekly Prophylaxis -Protonix 40mg PO daily -Sucralfate -Warfarin held Discussed with Dr. Denis
[2017-05-24] MEDS: Multivitamin Vitamin B Complex (Nephro-Vite) Tab PO SCH (10:23)
[2017-05-24] MEDS: Pantoprazole 40 mg EC Tab PO SCH (10:24)
[2017-05-24 11:59] LABS: PHOSPHOROUS 6.1 mg/dL (2.5-4.5); POTASSIUM 5.2 mmol/L (3.6-5.2); TOTAL PROTEIN 6.2 g/dL (6.3-8.3)
--- NOTE | 2017-05-24 15:09 | CT ---
PROCEDURE: CT HEAD WITHOUT CONTRAST. HISTORY: code stroke COMPARISON: None available. TECHNIQUE: Axial computed tomography images were obtained through the head/brain without intravenous contrast. Radiation dose: Total exam DLP = 1071.24 mGy-cm. This CT exam was performed using one or more of the following dose reduction techniques: Automated exposure control, adjustment of the mA and/or kV according to patient size, and/or use of iterative reconstruction technique. FINDINGS: HEMORRHAGE: No intracranial hemorrhage. BRAIN: A chronic lacune is seen at the right basal ganglia. No mass-effect is appreciated throughout. Limited chronic microangiopathy is appreciate the periventricular and centrum semiovale white matter spaces bilaterally and there is limited expansion of the ventricular sulcal and cisternal spaces compatible with limited diffuse cerebral atrophy. No suspicious extra-axial fluid collection identified. Midline brain and appears unremarkable diffusely. VENTRICLES: Unremarkable. No hydrocephalus. CALVARIUM: Unremarkable. PARANASAL SINUSES: Unremarkable as visualized. No significant inflammatory changes. MASTOID AIR CELLS: Unremarkable as visualized. No inflammatory changes. OTHER FINDINGS: None. IMPRESSION: Minimal age related neuro degenerative change are identified as well as a chronic lacune right basal ganglia. No definitive acute intracranial findings by standard CT criteria. Follow-up CT or MRI can be performed as clinically warranted. Findings were discussed with Marcel Swanson APN with written down and read back verification, 05/24/2017 3:03 p.m..
--- NOTE | 2017-05-24 15:40 | CP.PCM.CON ---
History of Present Illness - History of Present Illness History of Present Illness: Mrs. Taveras is a 67-year-old woman with a past medical history of DM, HLD, HTN , PVD, CVA, ESRD, who was to undergo emergent dialysis. She has had many fluctuations in her blood pressure with intermittent hypertensive and hypotensive episodes. Prior to dialysis today, the patient become acutely confused, had slurred speech and generalized weakness. She usually has left sided weakness, but she had bilateral upper and lower extremity weakness today. Her NIHSS was initially 31. CT scan of the head did not show any acute findings. However, when I saw the patient she was back to baseline and I was able to examine her with the aid of a rn hospice. Her NIHSS was down to a 6, which is likely her chronic baseline and was limited due to severe peripheral edema. Review of Systems - Review of Systems Systems not reviewed;Unavailable: Altered Mental Status All systems: reviewed and no additional remarkable complaints except Past Patient History - Past Medical History & Family History Past Medical History?: Yes - Past Social History Smoking Status: Never Smoked - CARDIAC Hx Congestive Heart Failure: Yes Hx Hypercholesterolemia: Yes Hx Hypertension: Yes - PULMONARY Hx Respiratory Disorders: Yes (Dyspnea) - NEUROLOGICAL HX Cerebrovascular Accident: Yes - HEENT Hx HEENT Problems: No - RENAL Hx Chronic Kidney Disease: Yes - ENDOCRINE/METABOLIC Hx Diabetes Mellitus Type 2: Yes - HEMATOLOGICAL/ONCOLOGICAL Hx Blood Disorders: No - INTEGUMENTARY Hx Dermatological Problems: Yes Other/Comment: pt. w/ diabetic ulcer-left heel - MUSCULOSKELETAL/RHEUMATOLOGICAL Hx Musculoskeletal Disorders: Yes Hx Falls: Yes Hx Osteomyelitis: Yes - GASTROINTESTINAL Hx Gastrointestinal Disorders: No - GENITOURINARY/GYNECOLOGICAL Hx Genitourinary Disorders: No - PSYCHIATRIC Hx Substance Use: No - SURGICAL HISTORY Hx Surgeries: Yes Hx Amputation: Yes (Toe) Hx Angiogram: Yes Hx Angioplasty: Yes (02/10/14) - ANESTHESIA Hx Anesthesia: Yes Hx Anesthesia Reactions: No Hx Malignant Hyperthermia: No Meds Allergies/Adverse Reactions: Allergies Allergy/AdvReac Type Severity Reaction Status Date / Time No Known Allergies Allergy Verified 03/20/14 15:10 - Medications Medications: Current Medications Calcium Acetate (Phoslo) 667 mg PO TIDAC [facility] Last Admin: 05/24/17 11:43 Dose: 667 mg Carvedilol (Coreg) 3.125 mg PO BID [facility] Last Admin: 05/24/17 10:23 Dose: 3.125 mg Clopidogrel Bisulfate (Plavix) 75 mg PO DAILY [facility] Last Admin: 05/24/17 10:24 Dose: 75 mg Epoetin Etienne (Procrit) 10,000 unit SC MWF [facility] Last Admin: 05/22/17 12:30 Dose: 10,000 unit Ergocalciferol (Drisdol 50,000 Intl Units Cap) 1 cap PO Q7D [facility] Last Admin: 05/21/17 09:48 Dose: 1 cap Ferrous Gluconate (Fergon) 324 mg PO TID [facility] Last Admin: 05/24/17 14:21 Dose: Not Given Fluoxetine HCl (Prozac) 20 mg PO DAILY [facility] Last Admin: 05/24/17 10:24 Dose: 20 mg Hydralazine HCl (Apresoline) 25 mg PO Q4 PRN PRN Reason: Other Hydralazine HCl (Apresoline) 50 mg PO BID [facility] Last Admin: 05/24/17 10:24 Dose: 50 mg Piperacillin Sod/Tazobactam Sod (Zosyn 2.25 Gm Iv Premix) 2.25 gm in 50 mls @ 100 mls/hr IVPB Q8H [facility] Last Admin: 05/24/17 10:25 Dose: 100 mls/hr Insulin Aspart (Novolog) 0 unit SC [facility] PRN Reason: Protocol Last Admin: 05/24/17 11:43 Dose: 3 unit Insulin Glargine (Lantus) 10 unit SC [facility] Last Admin: 05/23/17 22:31 Dose: Not Given Lactulose (Enulose) 20 gm PO [facility] Last Admin: 05/23/17 22:30 Dose: Not Given Pantoprazole Sodium (Protonix Ec Tab) 40 mg PO DAILY [facility] Last Admin: 05/24/17 10:24 Dose: 40 mg Rosuvastatin Calcium (Crestor) 10 mg PO HS [facility] Last Admin: 05/23/17 22:30 Dose: Not Given Sucralfate (Carafate Tab) 1 gm PO BID [facility] Last Admin: 05/24/17 10:24 Dose: 1 gm Vitamin B Complex/Vit C/Folic Acid (Nephro-Naren) 1 tab PO DAILY [facility] Last Admin: 05/24/17 10:23 Dose: 1 tab Physical Exam - Constitutional Appears: Chronically Ill - Head Exam Head Exam: ATRAUMATIC, NORMAL INSPECTION, NORMOCEPHALIC - Eye Exam Eye Exam: EOMI, Normal appearance, PERRL - ENT Exam ENT Exam: Mucous Membranes Moist, Normal Exam - Neck Exam Neck exam: Positive for: Normal Inspection - Respiratory Exam Respiratory Exam: Clear to Auscultation Bilateral, NORMAL BREATHING PATTERN - Cardiovascular Exam Cardiovascular Exam: REGULAR RHYTHM - GI/Abdominal Exam GI & Abdominal Exam: Normal Bowel Sounds, Soft. absent: Tenderness - Rectal Exam Rectal Exam: Deferred - Back Exam Back exam: NORMAL INSPECTION - Neurological Exam Neurological exam: Abnormal Gait, Altered, CN II-XII Intact, Reflexes Normal Additional comments: Presence of asterixis in both upper extremities, worse on the right side. She had generalized weakness, but strength was 4/5 in both upper extremities, and 2/ 5 in both lower extremities. No significant focal weakness was noted. No facial droop. She was disarthric, but this appears to be her baseline. She was able to converse normally with the rn hospice. No sensory deficits were noted. - Psychiatric Exam Psychiatric exam: Flat Affect - Skin Skin Exam: Diaphoretic, Dry, Rash Results - Vital Signs Recent Vital Signs: Last Vital Signs Temp 98 F 05/24/17 14:24 Pulse 96 H 05/24/17 14:24 Resp 16 05/24/17 14:24 BP 88/53 L 05/24/17 14:31 Pulse Ox 98 05/24/17 14:24 - Labs Result Diagrams: 05/24/17 08:08 05/24/17 08:08 Labs: Laboratory Results - last 24 hr 05/23/17 05/23/17 05/23/17 18:17 20:12 20:12 WBC RBC Hgb Hct MCV MCH MCHC RDW Plt Count MPV Neut % (Auto) Lymph % (Auto) [place] % (Auto) Eos % (Auto) Baso % (Auto) Neut # Lymph # [place] # Eos # Baso # Neutrophils % (Manual) Lymphocytes % (Manual) Monocytes % (Manual) Eosinophils % (Manual) Platelet Estimate Large Platelets Polychromasia Hypochromasia (manual) Poikilocytosis (manual Anisocytosis (manual) Target Cells Tear Drop Cells [place] Cells Sodium Potassium Chloride Carbon Dioxide Anion Gap BUN Creatinine Est GFR ( Amer) Est GFR (Non-Af Amer) POC Glucose (mg/dL) 114 H Random Glucose Calcium Phosphorus Magnesium Total Bilirubin AST ALT Alkaline Phosphatase Total Protein Albumin Globulin Albumin/Globulin Ratio Hep Bs Antigen Negative Hep Bs Antibody Negative Hep B Core IgM Ab Negative Hepatitis C Antibody Negative 05/23/17 05/24/17 05/24/17 21:32 06:35 08:08 WBC RBC Hgb Hct MCV MCH MCHC RDW Plt Count MPV Neut % (Auto) Lymph % (Auto) [place] % (Auto) Eos % (Auto) Baso % (Auto) Neut # Lymph # [place] # Eos # Baso # Neutrophils % (Manual) Lymphocytes % (Manual) Monocytes % (Manual) Eosinophils % (Manual) Platelet Estimate Large Platelets Polychromasia Hypochromasia (manual) Poikilocytosis (manual Anisocytosis (manual) Target Cells Tear Drop Cells [place] Cells Sodium 137 Potassium 5.2 Chloride 103 Carbon Dioxide 21 L Anion Gap 18 BUN 72 H Creatinine 6.5 H Est GFR ( Amer) 8 Est GFR (Non-Af Amer) 6 POC Glucose (mg/dL) 122 H 171 H Random Glucose 150 H Calcium 7.9 L Phosphorus 6.1 H Magnesium 1.9 Total Bilirubin 0.7 AST 33 ALT 34 Alkaline Phosphatase 110 Total Protein 6.2 L Albumin 3.2 L Globulin 3.0 Albumin/Globulin Ratio 1.0 Hep Bs Antigen Hep Bs Antibody Hep B Core IgM Ab Hepatitis C Antibody 05/24/17 05/24/17 05/24/17 08:08 11:16 14:41 WBC 8.6 RBC 3.09 L Hgb 9.1 L Hct 28.9 L MCV 93.6 MCH 29.4 MCHC 31.4 L RDW 19.0 H Plt Count 171 MPV 8.9 Neut % (Auto) 79.7 H Lymph % (Auto) 7.4 L [place] % (Auto) 9.7 Eos % (Auto) 3.0 Baso % (Auto) 0.2 Neut # 6.8 Lymph # 0.6 L [place] # 0.8 Eos # 0.3 Baso # 0.0 Neutrophils % (Manual) 78 H Lymphocytes % (Manual) 10 L Monocytes % (Manual) 9 Eosinophils % (Manual) 3 Platelet Estimate Normal Large Platelets Present Polychromasia Slight Hypochromasia (manual) Slight Poikilocytosis (manual Slight Anisocytosis (manual) Slight Target Cells Slight Tear Drop Cells Slight [place] Cells Slight Sodium Potassium Chloride Carbon Dioxide Anion Gap BUN Creatinine Est GFR ( Amer) Est GFR (Non-Af Amer) POC Glucose (mg/dL) 200 H 231 H Random Glucose Calcium Phosphorus Magnesium Total Bilirubin AST ALT Alkaline Phosphatase Total Protein Albumin Globulin Albumin/Globulin Ratio Hep Bs Antigen Hep Bs Antibody Hep B Core IgM Ab Hepatitis C Antibody Assessment & Plan (1) Encephalopathy acute Assessment and Plan: Likely due to metabolic and hemodynamic changes. No current focal neurologic deficits. Back to baseline. I recommend the followin. Telemetry 2. MRI of the brain without contrast, MRA of the head/neck without contrast 3. Echocardiogram with bubble study 4. Aspirin 81 mg daily 5. PT/OT eval and treat 6. Statin to maintain LDL< 100 7. Dialysis as needed 8. Check HbA1c, Lipid panel, TSH, T3/T4, metabolic panel, B12, Vitamin D levels 9. Case management consult 10. Control BP to maintain cerebral perfusion (maintain between 130 mm Hg and 180 mm Hg systolic) Thank you. Status: Acute Priority: High
--- NOTE | 2017-05-24 15:44 | CP.PCM.PN ---
Subjective - Date & Time of Evaluation Date of Evaluation: 05/24/17 Time of Evaluation: 11:42 - Subjective Subjective: Follow up Nephrology Consultation: Assessment: worsening Acute Kidney Injury likely contrast induced nephropathy: now on HD since Non-healing ulcer on heel with celluliits Diabetic chronic Kidney Disease (E11.22) Hypertensive Chronic Kidney Disease (I12.9) Chronic Kidney Disease (N18.4) Stage 4 with 500 mg proteinuria (R80.9) possibly due to DM and or HTN Anemia (D64.9), Hyperphosphatemia (E83.39), HTN (I12.9) systolic CHF, Morbid obesity, PVD, depression Mild Hyperkalemia Plan HD today as 2nd session ordered. next HD tomorrow further exposure to iodinated contrast IV may reduce the chances of spontaneous renal recovery but may be needed to facilitate diagnostic and therapeutic interventions for CAD, PVD. Please assess risk versus benefit. continue to monitor for renal function and I/O closely. Hypertension control with meds as ordered. continue with low dose coreg, hydralazine 50 mg bid. continue with her home dose epogen (hold if Hb>11) and phoslo continue with vit D and oral iron supplementation ID and vascular surgery following Dose meds/antibiotics for reduced GFR <10. Avoid fleets enema/magnesium based laxatives. Avoid nephrotoxins/NSAIDs Glycemic control Further work up/management as per primary team Thanks for allowing me to participate in care of your patient. Will follow patient with you. Please call if any Qs. Dr Juan Torres Office: [phone] HPI: Pt is a 67 y/o F with hx of diabetes Mellitus hypertension, CHF, chronic anemia, hyperphos, DVT on coumadin, drpression, obesity, dementia, CVA, CKD ? 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 Used [employer] for creole interpretation. ROS: She Denies chest pain, palpitation, shortness of breath. has urinary complaints as decreased urine output Physical Examination: General Appearance: Comfortable, in no acute respiratory distress, co-operative . obese Vitals reviewed and noted as below Lungs: Normal respiratory rate/effort. Breath sounds bilateral equal and has basal rales + Heart: Normal rate. s1s2 normal. No rub or gallop. Extremities: 1-2+ edema. No varicose veins. has chronic venous stasis changes. both feets in dressings. LUE swelling + Neurological: Patient is alert, awake and not oriented to person, place or time. ? has dementia. No focal deficit. Strength bilateral appropriate and equal Skin: Warm and dry. Normal turgor. No rash. Palpitation: Normal elasticity for age Abdomen: Abdomen is soft. Bowel sounds +. There is no abdominal tenderness, no guarding/rigidity no organomegaly. she is obese Psych: lack insight MSK: no joint tenderness or swelling. Digits and nails normal, no deformity : kidney or bladder not palpable Labs/imaging/EKG reviewed. Past medical history, past surgical history, family history, social history, allergy reviewed and noted as below Family hx: no hx of CKD. Rest non-contributory Objective - Vital Signs/Intake and Output Vital Signs (last 24 hours): Temp Pulse Resp BP Pulse Ox 98 F 96 H 16 88/53 L 98 05/24/17 14:24 05/24/17 14:24 05/24/17 14:24 05/24/17 14:31 05/24/17 14:24 Intake and Output: 05/24/17 05/24/17 06:59 18:59 Intake Total 150 Balance 150 - Medications Medications: Current Medications Calcium Acetate (Phoslo) 667 mg PO TIDAC [facility] Last Admin: 05/24/17 11:43 Dose: 667 mg Carvedilol (Coreg) 3.125 mg PO BID [facility] Last Admin: 05/24/17 10:23 Dose: 3.125 mg Clopidogrel Bisulfate (Plavix) 75 mg PO DAILY [facility] Last Admin: 05/24/17 10:24 Dose: 75 mg Epoetin Etienne (Procrit) 10,000 unit SC MWF [facility] Last Admin: 05/22/17 12:30 Dose: 10,000 unit Ergocalciferol (Drisdol 50,000 Intl Units Cap) 1 cap PO Q7D [facility] Last Admin: 05/21/17 09:48 Dose: 1 cap Ferrous Gluconate (Fergon) 324 mg PO TID [facility] Last Admin: 05/24/17 14:21 Dose: Not Given Fluoxetine HCl (Prozac) 20 mg PO DAILY [facility] Last Admin: 05/24/17 10:24 Dose: 20 mg Hydralazine HCl (Apresoline) 25 mg PO Q4 PRN PRN Reason: Other Hydralazine HCl (Apresoline) 50 mg PO BID [facility] Last Admin: 05/24/17 10:24 Dose: 50 mg Piperacillin Sod/Tazobactam Sod (Zosyn 2.25 Gm Iv Premix) 2.25 gm in 50 mls @ 100 mls/hr IVPB Q8H [facility] Last Admin: 05/24/17 10:25 Dose: 100 mls/hr Insulin Aspart (Novolog) 0 unit SC [facility] PRN Reason: Protocol Last Admin: 05/24/17 11:43 Dose: 3 unit Insulin Glargine (Lantus) 10 unit SC [facility] Last Admin: 05/23/17 22:31 Dose: Not Given Lactulose (Enulose) 20 gm PO [facility] Last Admin: 05/23/17 22:30 Dose: Not Given Pantoprazole Sodium (Protonix Ec Tab) 40 mg PO DAILY [facility] Last Admin: 05/24/17 10:24 Dose: 40 mg Rosuvastatin Calcium (Crestor) 10 mg PO [facility] Last Admin: 05/23/17 22:30 Dose: Not Given Sucralfate (Carafate Tab) 1 gm PO BID [facility] Last Admin: 05/24/17 10:24 Dose: 1 gm Vitamin B Complex/Vit C/Folic Acid (Nephro-Naren) 1 tab PO DAILY [facility] Last Admin: 05/24/17 10:23 Dose: 1 tab - Labs Labs: 05/24/17 08:08 05/24/17 08:08 PT 13.8 SECONDS (9.7-12.2) H 05/21/17 07:30 INR 1.2 05/21/17 07:30 APTT 32 SECONDS (21-34) 05/21/17 07:30
--- NOTE | 2017-05-24 15:58 | CP.PCM.PN ---
Subjective - Date & Time of Evaluation Date of Evaluation: 05/24/17 Time of Evaluation: 07:00 - Subjective Subjective: Vascular Surgery Note for Dr. Romero Patient seen and examined at bedside. No acute event overnight. Patient is s/p permacath insertion POD#1. She is lying in bed comfortably. She is tolerating diet. Patient has no complaints today. Objective - Vital Signs/Intake and Output Vital Signs (last 24 hours): Temp Pulse Resp BP Pulse Ox 98 F 96 H 16 88/53 L 98 05/24/17 14:24 05/24/17 14:24 05/24/17 14:24 05/24/17 14:31 05/24/17 14:24 Intake and Output: 05/24/17 05/24/17 06:59 18:59 Intake Total 150 Balance 150 - Medications Medications: Current Medications Calcium Acetate (Phoslo) 667 mg PO TIDAC [facility] Last Admin: 05/24/17 11:43 Dose: 667 mg Carvedilol (Coreg) 3.125 mg PO BID [facility] Last Admin: 05/24/17 10:23 Dose: 3.125 mg Clopidogrel Bisulfate (Plavix) 75 mg PO DAILY [facility] Last Admin: 05/24/17 10:24 Dose: 75 mg Epoetin Etienne (Procrit) 10,000 unit SC MWF [facility] Last Admin: 05/22/17 12:30 Dose: 10,000 unit Ergocalciferol (Drisdol 50,000 Intl Units Cap) 1 cap PO Q7D [facility] Last Admin: 05/21/17 09:48 Dose: 1 cap Ferrous Gluconate (Fergon) 324 mg PO TID [facility] Last Admin: 05/24/17 14:21 Dose: Not Given Fluoxetine HCl (Prozac) 20 mg PO DAILY [facility] Last Admin: 05/24/17 10:24 Dose: 20 mg Hydralazine HCl (Apresoline) 25 mg PO Q4 PRN PRN Reason: Other Hydralazine HCl (Apresoline) 50 mg PO BID [facility] Last Admin: 05/24/17 10:24 Dose: 50 mg Piperacillin Sod/Tazobactam Sod (Zosyn 2.25 Gm Iv Premix) 2.25 gm in 50 mls @ 100 mls/hr IVPB Q8H [facility] Last Admin: 05/24/17 10:25 Dose: 100 mls/hr Insulin Aspart (Novolog) [address] [facility] PRN Reason: Protocol Last Admin: 05/24/17 11:43 Dose: 3 unit Insulin Glargine (Lantus) 10 unit SC [facility] Last Admin: 05/23/17 22:31 Dose: Not Given Lactulose (Enulose) 20 gm PO HS [facility] Last Admin: 05/23/17 22:30 Dose: Not Given Pantoprazole Sodium (Protonix Ec Tab) 40 mg PO DAILY [facility] Last Admin: 05/24/17 10:24 Dose: 40 mg Rosuvastatin Calcium (Crestor) 10 mg PO HS [facility] Last Admin: 05/23/17 22:30 Dose: Not Given Sucralfate (Carafate Tab) 1 gm PO BID [facility] Last Admin: 05/24/17 10:24 Dose: 1 gm Vitamin B Complex/Vit C/Folic Acid (Nephro-Naren) 1 tab PO DAILY [facility] Last Admin: 05/24/17 10:23 Dose: 1 tab - Labs Labs: 05/24/17 08:08 05/24/17 08:08 PT 13.8 SECONDS (9.7-12.2) H 05/21/17 07:30 INR 1.2 05/21/17 07:30 APTT 32 SECONDS (21-34) 05/21/17 07:30 - Constitutional Appears: No Acute Distress - Head Exam Head Exam: ATRAUMATIC, NORMOCEPHALIC - Eye Exam Eye Exam: Normal appearance - ENT Exam ENT Exam: Mucous Membranes Moist - Respiratory Exam Respiratory Exam: NORMAL BREATHING PATTERN - Cardiovascular Exam Cardiovascular Exam: REGULAR RHYTHM - GI/Abdominal Exam GI & Abdominal Exam: Soft. absent: Tenderness - Extremities Exam Additional comments: bilateral dressing with some stains - Neurological Exam Neurological Exam: Alert, Awake, Oriented x3 - Psychiatric Exam Psychiatric exam: Normal Affect, Normal Mood - Skin Skin Exam: Dry, Warm Assessment and Plan - Assessment and Plan (Free Text) Plan: 67 F with Right heel ulcer and worsening TRINITY from contrast s/p Permacath insertion POD #1 -Possible left lower extremity angiogram and intervention next week -Dialysis as scheduled -f/u Nephrology recommendations -Eventual R BKA -Discussed with Dr. Heather Short PGY1
--- NOTE | 2017-05-24 21:39 | CP.PCM.PN ---
Subjective - Date & Time of Evaluation Date of Evaluation: 05/24/17 Time of Evaluation: 19:35 - Subjective Subjective: Patient seen and evaluated Code stroke events noted No chest pain or dyspnea Physical examination - Constitutional Appears: Non-toxic, No Acute Distress - Head Exam Head Exam: NORMAL INSPECTION - Eye Exam Eye Exam: EOMI - ENT Exam ENT Exam: Mucous Membranes Moist - Respiratory Exam Respiratory Exam: Clear to Ausculation Bilateral, NORMAL BREATHING PATTERN. absent: Rales, Rhonchi, Wheezes - Cardiovascular Exam Cardiovascular Exam: REGULAR RHYTHM, +S1, +S2. absent: Gallop, Rubs, Murmur - GI/Abdominal Exam GI & Abdominal Exam: Soft, Normal Bowel Sounds. absent: Tenderness - Extremities Exam Extremities Exam: Pedal Edema Additional comments: pitting edema and venous stasis changes to mid calf b/l negative Shiloh's Warm toes b/l Right heel wrapped in clean bandage odorous feet - Neurological Exam Neurological Exam: Alert, Awake, Oriented x3 - Psychiatric Exam Psychiatric exam: Normal Affect, Normal Mood - Skin Skin Exam: Normal Color, Warm Objective - Vital Signs/Intake and Output Vital Signs (last 24 hours): Temp Pulse Resp BP Pulse Ox 98.6 F 89 20 134/80 100 05/24/17 16:09 05/24/17 16:09 05/24/17 16:09 05/24/17 16:09 05/24/17 16:09 - Medications Medications: Current Medications Calcium Acetate (Phoslo) 667 mg PO TIDAC [facility] Last Admin: 05/24/17 17:15 Dose: 667 mg Carvedilol (Coreg) 3.125 mg PO BID [facility] Last Admin: 05/24/17 18:00 Dose: 3.125 mg Clopidogrel Bisulfate (Plavix) 75 mg PO DAILY [facility] Last Admin: 05/24/17 10:24 Dose: 75 mg Epoetin Etienne (Procrit) 10,000 unit SC MWF [facility] Last Admin: 05/22/17 12:30 Dose: 10,000 unit Ergocalciferol (Drisdol 50,000 Intl Units Cap) 1 cap PO Q7D [facility] Last Admin: 05/21/17 09:48 Dose: 1 cap Ferrous Gluconate (Fergon) 324 mg PO TID [facility] Last Admin: 05/24/17 18:00 Dose: 324 mg Fluoxetine HCl (Prozac) 20 mg PO DAILY [facility] Last Admin: 05/24/17 10:24 Dose: 20 mg Hydralazine HCl (Apresoline) 25 mg PO Q4 PRN PRN Reason: Other Hydralazine HCl (Apresoline) 50 mg PO BID [facility] Last Admin: 05/24/17 18:00 Dose: 50 mg Piperacillin Sod/Tazobactam Sod (Zosyn 2.25 Gm Iv Premix) 2.25 gm in 50 mls @ 100 mls/hr IVPB Q8H [facility] Last Admin: 05/24/17 18:00 Dose: 100 mls/hr Insulin Aspart (Novolog) 0 unit SC ACHS [facility] PRN Reason: Protocol Last Admin: 05/24/17 17:15 Dose: 3 unit Insulin Glargine (Lantus) 10 unit SC [facility] Last Admin: 05/23/17 22:31 Dose: Not Given Lactulose (Enulose) 20 gm PO [facility] Last Admin: 05/23/17 22:30 Dose: Not Given Pantoprazole Sodium (Protonix Ec Tab) 40 mg PO DAILY [facility] Last Admin: 05/24/17 10:24 Dose: 40 mg Rosuvastatin Calcium (Crestor) 10 mg PO [facility] Last Admin: 05/23/17 22:30 Dose: Not Given Sucralfate (Carafate Tab) 1 gm PO BID [facility] Last Admin: 05/24/17 17:59 Dose: 1 gm Vitamin B Complex/Vit C/Folic Acid (Nephro-Naren) 1 tab PO DAILY [facility] Last Admin: 05/24/17 10:23 Dose: 1 tab - Labs Labs: 05/24/17 08:08 05/24/17 08:08 PT 13.8 SECONDS (9.7-12.2) H 05/21/17 07:30 INR 1.2 05/21/17 07:30 APTT 32 SECONDS (21-34) 05/21/17 07:30 Assessment and Plan - Assessment and Plan (Free Text) Assessment: Acute on Chronic ESRD Dailysis MWF Procrit [facility] Nephrology consult - Dr. Jett - help appreciated Phoslo 667mg PO TID DMII F/U HgbA1C Lantus 10U SC HS Novolog 70/30 ISS H/O CVA Plavix 75mg PO daily H/O PVD with stents Plavix 75mg PO daily Warfarin 5mg PO HS INR 2.4 F/U INR daily H/O CHF Lasix 40mg PO daily No B-kam secondary to bradycardia Starting Lisinopril 10mg PO daily H/O Hyperlipidemia Converting home med of lipitor 20mg PO daily to formulary Depression Prozac 20mg PO daily Prophylaxis Protonix 40mg PO daily Sucralfate Warfarin Plavix
[2017-05-24] MEDS: (Lantus) Insulin Glargine, Recombinant SC SCH (22:14)
--- NOTE | 2017-05-24 22:17 | PCM.RRT ---
<AnnikaArnulfo guerra - Last Filed: 05/24/17 22:17> TOWER OBSERVER Nurses Assessment - Situation Date: 05/24/17 Time TOWER OBSERVER was called: 14:32 TOWER OBSERVER Responder Arrival Time:: 14:32 TOWER OBSERVER Location:: 3D Dialysis TOWER OBSERVER Reason for Call: Change in Mental Status TOWER OBSERVER Called By: RN - IV IV Inserted during TOWER OBSERVER?: No - Respiratory TOWER OBSERVER Delivery Method: Face Mask @% Oxygen Flow Rate: 15 Received Nebulizer Treatments: No Was the Patient Ventilated with Bag/Mask 100% O2?: No Secretions Suctioned?: No Was the Patient Intubated?: No Was the Patient Placed on a Ventilator?: No - Diagnostic Test Ordered EKG: No Chest X-Ray: No CT Scan: Yes Other Diagnostic Test Ordered: HEAD CT CODE STROKE CPR started during TOWER OBSERVER?: No - Vital Signs Vital Signs: Rapid Response Vital Sign Blood Pressure 88/53 - Sepsis Screen Part 1 Sepsis Screen Part 1: Hypotensive - Vital Signs at end of TOWER OBSERVER Vital Signs at end of TOWER OBSERVER: Rapid Response End Vital Sign Blood Pressure 147/90 Pulse Rate 96 - Recommendations Notifications: Attending Physician, Consultations - Respiratory Oxygen Delivery Method: Face Mask @% Oxygen Flow Rate: 15 <Medina Fang V - Last Filed: 05/26/17 08:22> TOWER OBSERVER Nurses Assessment - Vital Signs Vital Signs: Rapid Response Vital Sign Blood Pressure 168/100 Pulse Rate 85 Respiratory Rate 20 Oxygen Saturation 100 - Vital Signs at end of TOWER OBSERVER Vital Signs at end of TOWER OBSERVER: Rapid Response End Vital Sign Blood Pressure 168/100 Pulse Rate 85 Respiratory Rate 20 Temperature 98.0 F O2 Sat by Pulse Oximetry 100 Attending/Attestation - Attestation I have personally seen and examined this patient.: Yes I have fully participated in the care of the patient.: Yes I have reviewed all pertinent clinical information, including history, physical exam and plan: Yes Notes (Text): Brief Hospitalist Note: TOWER OBSERVER: hypotension and change in mental status. 67 year old Female with multiple co-morbidities seen in dialysis for hypotension and mental status change. Patient mainly Creole speaking lady, Assistance with Creole translation using In-demand translation. Patient initially with heavy breathing, lethargy, non-way breather put on, patient started to speak but appeared garbled. NIHSS: 2 at NIHSS:29. Discussed with resident, Monserrat, and nurse, Yaa that this is a change from this morning. Patient has been off Coumadin given for permcath placement. Patient has hx of prior CVA, PVD, DM, and new on dialysis Patient seen and reports she understands what the hand printed circuit board assembler is saying. Code stroke called. CT head negative for acute pathology. Patient transferred to back to the floor. Patient threw up on the way on the floor and moving all extremities compared to initial assessment. Neurology was called, and assessed, does not stroke; likely change due to metabolic arrangement. Patient back to baseline. PMD informed by Resident Monserrat, who was monitoring the patient during the day. Patient was placed Permcath yesteday, and today was about 2nd session dialysis. NIHSS Stroke Scale - Date/Time Evaluation Performed Date Performed: 05/24/17 Time Performed: 14:15 When Was NIHSS Performed: Baseline - How Severe is the Stoke Level of Consciousness: 1=Drowsy LOC to Questions: 2=Neither correct (didnt know at hospital) LOC to commands: 0=Obeys both correctly Best Gaze: 0=Normal Visual: 0=No visual loss Facial: 0=Normal Motor Arm - Left: 4=No movement Motor Arm - Right: 3=No effort against gravity (falls immediately) Motor Leg - Left: 4=No movement Motor Leg - Right: 3=No effort against gravity (falls immediately) Limb Ataxia: 1=Present Upper or Lower Sensory: 0=Normal Best Language: 2=Severe aphasia Dysarthia: 2=Severe, near unintelligible or worse Extinction & Inattention (Neglect): 0=Normal, no object Score: 22 Severity Of Stroke: 21-42= Severe Stroke (at initial: 215PM)
[2017-05-25] MEDS: Piperacill/Tazo 2.25gm in Dex 2.25 GM/50 ML BAG IVPB SCH ×3 (02:09→19:13)
[2017-05-25 08:10] LABS: BASO # 0.1 K/uL (0.0-0.2); BASO % 0.9 % (0.0-2.0); EOS # 0.2 K/uL (0.0-0.7); EOS % 2.5 % (0.0-4.0); HEMATOCRIT 27.9 % (34.0-47.0); LYMPH # 0.8 K/uL (1.0-4.3); LYMPH % 12.6 % (20.0-40.0); MEAN CELL VOLUME 92.8 fL (81.0-99.0); MEAN CORPUSCULAR HEMOGLOBIN 29.6 pg (27.0-31.0); MEAN CORPUSCULAR HGB CONC 31.9 g/dL (33.0-37.0); MEAN PLATELET VOLUME 8.8 fL (7.2-11.7); MONO # 0.9 K/uL (0.0-0.8); MONO % 13.1 % (0.0-10.0); NRBC % 0.3 % (0.0-2.0); RED CELL DISTRIBUTION WIDTH 19.2 % (11.5-14.5); WHITE BLOOD COUNT 6.5 K/uL (4.8-10.8)
[2017-05-25] MEDS: (Novolog) Insulin Aspart, Recombinant 100 u/ml 10 ml vial SC SCH ×3 (08:10→22:00)
[2017-05-25 08:47] LABS: ALB/GLOB RATIO 0.7 (1.0-2.1); BILIRUBIN,TOTAL 0.4 mg/dL (0.2-1.3); CALCIUM 7.9 mg/dl (8.6-10.4); POTASSIUM 4.9 mmol/L (3.6-5.2)
[2017-05-25] MEDS: Pantoprazole 40 mg EC Tab PO SCH (09:44)
[2017-05-25] MEDS: Multivitamin Vitamin B Complex (Nephro-Vite) Tab PO SCH (09:47)
--- NOTE | 2017-05-25 10:06 | CP.PCM.PN ---
Subjective - Date & Time of Evaluation Date of Evaluation: 05/25/17 Time of Evaluation: 07:45 - Subjective Subjective: Vascular Surgery Dr. Romero Pt S&E @bedside. NAEO. pt has no complaints. denies F/C, CP, SOB, N/V, leg pain. tolerating diet. Objective - Vital Signs/Intake and Output Vital Signs (last 24 hours): Temp Pulse Resp BP Pulse Ox 98 F 71 18 137/78 97 05/25/17 07:20 05/25/17 09:45 05/25/17 07:20 05/25/17 09:45 05/25/17 07:20 Intake and Output: 05/25/17 05/25/17 06:59 18:59 Intake Total 350 Balance 350 - Medications Medications: Current Medications Calcium Acetate (Phoslo) 667 mg PO TIDAC [facility] Last Admin: 05/25/17 08:10 Dose: 667 mg Carvedilol (Coreg) 3.125 mg PO BID [facility] Last Admin: 05/25/17 09:44 Dose: 3.125 mg Clopidogrel Bisulfate (Plavix) 75 mg PO DAILY [facility] Last Admin: 05/25/17 09:44 Dose: 75 mg Epoetin Etienne (Procrit) 10,000 unit SC MWF [facility] Last Admin: 05/22/17 12:30 Dose: 10,000 unit Ergocalciferol (Drisdol 50,000 Intl Units Cap) 1 cap PO Q7D [facility] Last Admin: 05/21/17 09:48 Dose: 1 cap Ferrous Gluconate (Fergon) 324 mg PO TID [facility] Last Admin: 05/25/17 09:44 Dose: 324 mg Fluoxetine HCl (Prozac) 20 mg PO DAILY [facility] Last Admin: 05/25/17 09:44 Dose: 20 mg Hydralazine HCl (Apresoline) 25 mg PO Q4 PRN PRN Reason: Other Hydralazine HCl (Apresoline) 50 mg PO BID [facility] Last Admin: 05/25/17 09:44 Dose: 50 mg Piperacillin Sod/Tazobactam Sod (Zosyn 2.25 Gm Iv Premix) 2.25 gm in 50 mls @ 100 mls/hr IVPB Q8H [facility] Last Admin: 05/25/17 02:09 Dose: 100 mls/hr Insulin Aspart (Novolog) 0 unit SC [facility] PRN Reason: Protocol Last Admin: 05/25/17 08:10 Dose: 2 unit Insulin Glargine (Lantus) [address] [facility] Last Admin: 05/24/17 22:14 Dose: 10 unit Lactulose (Enulose) 20 gm PO HS [facility] Last Admin: 05/24/17 22:14 Dose: 20 gm Pantoprazole Sodium (Protonix Ec Tab) 40 mg PO DAILY [facility] Last Admin: 05/25/17 09:44 Dose: 40 mg Rosuvastatin Calcium (Crestor) [address] [facility] Last Admin: 05/24/17 22:14 Dose: 10 mg Sucralfate (Carafate Tab) 1 gm PO BID [facility] Last Admin: 05/25/17 09:44 Dose: 1 gm Vitamin B Complex/Vit C/Folic Acid (Nephro-Naren) 1 tab PO DAILY [facility] Last Admin: 05/25/17 09:47 Dose: 1 tab - Labs Labs: 05/25/17 08:01 05/25/17 08:01 PT 13.8 SECONDS (9.7-12.2) H 05/21/17 07:30 INR 1.2 05/21/17 07:30 APTT 32 SECONDS (21-34) 05/21/17 07:30 - Constitutional Appears: Non-toxic, No Acute Distress - Head Exam Head Exam: NORMAL INSPECTION - Eye Exam Eye Exam: Normal appearance - ENT Exam ENT Exam: Mucous Membranes Moist - Respiratory Exam Respiratory Exam: NORMAL BREATHING PATTERN. absent: Accessory Muscle Use, Respiratory Distress - Cardiovascular Exam Cardiovascular Exam: absent: Bradycardia, Tachycardia - GI/Abdominal Exam GI & Abdominal Exam: Soft. absent: Distended, Tenderness - Extremities Exam Additional comments: air boots in place dressing c/d/i - Neurological Exam Neurological Exam: Alert, Awake - Psychiatric Exam Psychiatric exam: Normal Affect, Normal Mood - Skin Skin Exam: Dry, Normal Color, Warm Assessment and Plan - Assessment and Plan (Free Text) Assessment: 67 y/o F w (R) heel ulcer and s/p Permacath insertion POD #2 - Possible LLE angiogram next week - cont HD per nephrololgy - Eventual R BKA Pt discussed w/ Dr. Heather Grullon DO PGY2
[2017-05-25] MEDS ORDERED: Vancomycin 1 gm/NS 200 ml 1 GM/200 ML BAG IVPB STA (11:54)
--- NOTE | 2017-05-25 12:00 | CP.PCM.PN ---
Subjective - Date & Time of Evaluation Date of Evaluation: 05/25/17 Time of Evaluation: 11:59 - Subjective Subjective: seen and examined on HD - pt once again w/in 10 min had syncopal event, shawna + / - loss of rhythm though not completely clear. HD discontinued immediatly and pt improved mental status and being transferred to unit. o: Physical Examination: General Appearance: Comfortable, in no acute respiratory distress, co-operative . obese Vitals reviewed and noted as below Lungs: Normal respiratory rate/effort. Breath sounds bilateral equal and has basal rales + Heart: Normal rate. s1s2 normal. No rub or gallop. Extremities: 1-2+ edema. No varicose veins. has chronic venous stasis changes. both feets in dressings. LUE swelling + Neurological: Patient is alert, awake and not oriented to person, place or time. No focal deficit. Strength bilateral appropriate and equal Skin: Warm and dry. Normal turgor. No rash. Palpitation: Normal elasticity for age Abdomen: Abdomen is soft. Bowel sounds +. There is no abdominal tenderness, no guarding/rigidity no organomegaly. she is obese Psych: lack insight MSK: no joint tenderness or swelling. Digits and nails normal, no deformity : kidney or bladder not palpable access: TDC r chest Objective - Vital Signs/Intake and Output Vital Signs (last 24 hours): Temp Pulse Resp BP Pulse Ox 98 F 71 18 137/78 97 05/25/17 07:20 05/25/17 09:45 05/25/17 07:20 05/25/17 09:45 05/25/17 07:20 Intake and Output: 05/25/17 05/25/17 06:59 18:59 Intake Total 350 Balance 350 - Medications Medications: Current Medications Calcium Acetate (Phoslo) 667 mg PO TIDAC [facility] Last Admin: 05/25/17 08:10 Dose: 667 mg Carvedilol (Coreg) 3.125 mg PO BID [facility] Last Admin: 05/25/17 09:44 Dose: 3.125 mg Clopidogrel Bisulfate (Plavix) 75 mg PO DAILY [facility] Last Admin: 05/25/17 09:44 Dose: 75 mg Epoetin Etienne (Procrit) 10,000 unit SC MWF [facility] Last Admin: 05/22/17 12:30 Dose: 10,000 unit Ergocalciferol (Drisdol 50,000 Intl Units Cap) 1 cap PO Q7D [facility] Last Admin: 05/21/17 09:48 Dose: 1 cap Ferrous Gluconate (Fergon) 324 mg PO TID [facility] Last Admin: 05/25/17 09:44 Dose: 324 mg Fluoxetine HCl (Prozac) 20 mg PO DAILY [facility] Last Admin: 05/25/17 09:44 Dose: 20 mg Hydralazine HCl (Apresoline) 25 mg PO Q4 PRN PRN Reason: Other Hydralazine HCl (Apresoline) 50 mg PO BID [facility] Last Admin: 05/25/17 09:44 Dose: 50 mg Piperacillin Sod/Tazobactam Sod (Zosyn 2.25 Gm Iv Premix) 2.25 gm in 50 mls @ 100 mls/hr IVPB Q8H [facility] Last Admin: 05/25/17 10:49 Dose: 100 mls/hr Vancomycin/Sodium Chloride (Vancomycin 1 Gm/Ns 200 Ml) 1 gm in 200 mls @ 166.7 mls/hr IVPB STAT STA Stop: 05/25/17 13:05 Insulin Aspart (Novolog) 0 unit SC ACHS [facility] PRN Reason: Protocol Last Admin: 05/25/17 08:10 Dose: 2 unit Insulin Glargine (Lantus) 10 unit SC HS [facility] Last Admin: 05/24/17 22:14 Dose: 10 unit Lactulose (Enulose) 20 gm PO HS [facility] Last Admin: 05/24/17 22:14 Dose: 20 gm Pantoprazole Sodium (Protonix Ec Tab) 40 mg PO DAILY [facility] Last Admin: 05/25/17 09:44 Dose: 40 mg Rosuvastatin Calcium (Crestor) 10 mg PO HS [facility] Last Admin: 05/24/17 22:14 Dose: 10 mg Sucralfate (Carafate Tab) 1 gm PO BID [facility] Last Admin: 05/25/17 09:44 Dose: 1 gm Vitamin B Complex/Vit C/Folic Acid (Nephro-Naren) 1 tab PO DAILY [facility] Last Admin: 05/25/17 09:47 Dose: 1 tab - Labs Labs: 05/25/17 08:01 05/25/17 08:01 PT 13.8 SECONDS (9.7-12.2) H 05/21/17 07:30 INR 1.2 05/21/17 07:30 APTT 32 SECONDS (21-34) 05/21/17 07:30 Assessment and Plan - Assessment and Plan (Free Text) Assessment: Acute Kidney Injury likely contrast induced nephropathy: now on HD since Non-healing ulcer on heel with celluliits Diabetic chronic Kidney Disease (E11.22) Hypertensive Chronic Kidney Disease (I12.9) Chronic Kidney Disease (N18.4) Stage 4 with 500 mg proteinuria (R80.9) possibly due to DM and or HTN Anemia (D64.9), Hyperphosphatemia (E83.39), HTN (I12.9) systolic CHF, Morbid obesity, PVD, depression Mild Hyperkalemia Plan Did not tolerated HD again today - syncopiezed +/- loss of rhythm? At this point the etiology of htis not clear - positioning of cathether leading to vagal? infected cathether? dialyzer reaction. Machine was primed w/ 1 L. Attempted to get an alternative dialyzter for attempt at next treatment. Will txf to unit and when we decide on HD again will do in ICU and monitor closley. Hypertension control with meds as ordered. continue with low dose coreg, hydralazine 50 mg bid. continue epo continue with vit D and oral iron supplementation check bcx from line and from peripheral.
--- NOTE | 2017-05-25 12:08 | PCM.RRT ---
GUEST SERVICES COORDINATOR Nurses Assessment - Situation Date: 05/25/17 Time GUEST SERVICES COORDINATOR was called: 11:35 GUEST SERVICES COORDINATOR Responder Arrival Time:: 11:36 GUEST SERVICES COORDINATOR Location:: 3D Dialysis Room Number: dialysis GUEST SERVICES COORDINATOR Reason for Call: Change in Mental Status GUEST SERVICES COORDINATOR Called By: RN, Physician - IV IV Inserted during GUEST SERVICES COORDINATOR?: No - Respiratory GUEST SERVICES COORDINATOR Delivery Method: Non Rebreather @% Oxygen Flow Rate: 100 Received Nebulizer Treatments: No Was the Patient Ventilated with Bag/Mask 100% O2?: No Secretions Suctioned?: No Was the Patient Intubated?: No Was the Patient Placed on a Ventilator?: No - Diagnostic Test Ordered EKG: Yes Chest X-Ray: Yes CT Scan: No - Stat Labs Ordered GUEST SERVICES COORDINATOR Stat Labs Ordered: TROPONIN CPR started during GUEST SERVICES COORDINATOR?: No - Vital Signs Vital Signs: Rapid Response Vital Sign Blood Pressure 168/100 Pulse Rate 85 Respiratory Rate 20 Oxygen Saturation 100 - Sepsis Screen Part 1 Sepsis Screen Part 1: Hypotensive - Vital Signs at end of GUEST SERVICES COORDINATOR Vital Signs at end of GUEST SERVICES COORDINATOR: Rapid Response End Vital Sign Blood Pressure 168/100 Pulse Rate 85 Respiratory Rate 20 Temperature 98.0 F O2 Sat by Pulse Oximetry 100 - Recommendations Notifications: Attending Physician I.Reason for GUEST SERVICES COORDINATOR - A) Acute Change in Patient: (Select all that apply): Acute change in mental status Subjective: Rapid response was called at 11:35 and less than a minute later a code blue was called. Arrived at 11:36. Per nursing they thought the patient was not breathing, however, upon arrival the patient was breathing and had a pulse. No chest compressions were started and epi was not given for this reason. Dialysis was discontinued. Patient began moving her extremities and opened her eyes about 1 minute after arrival. She was following commands. Vitals were as follows: BP: 168/100 O2 sat: 100% Pulse: 84 bpm NSR - Respiratory Oxygen Delivery Method: Non Rebreather @% Oxygen Flow Rate: 100 - Constitutional Appears: In Acute Distress - Head Head Exam: ATRAUMATIC, NORMAL INSPECTION, NORMOCEPHALIC - Eyes Eye Exam: EOMI - Respiratory Exam Respiratory Exam: Accessory Muscle Use Additional comments: on 100% non rebreather - Cardiovascular Exam Cardiovascular Exam: REGULAR RHYTHM, +S1, +S2. absent: Bradycardia, Tachycardia - GI/Abdominal Exam GI & Abdominal Exam: Soft - Neurological Exam Additional exam: altered upon arrival but became alert within 1 minute of arrival - Extremities Exam Extremities Exam: Pedal Edema Plan - Assessment of Findings&Treatment Plan EKG BAKARI CXR repeated blood culture CMP transfer to ICU Pending ICD eval
--- NOTE | 2017-05-25 13:31 | RAD ---
Chest x-ray single frontal view History: Congestive heart failure. Comparison: 05/23/2017 Findings: Lines and tubes in stable position. Persistent moderate to severe venous congestion with bibasilar airspace opacities and bilateral pleural effusions. Cardiomegaly. Degenerative changes in the spine and shoulders. Impression: No significant interval change in findings concerning for prominent congestive heart failure. Clinical correlation.
[2017-05-25 16:47] LABS: ALB/GLOB RATIO 0.8 (1.0-2.1); BILIRUBIN,TOTAL 0.4 mg/dL (0.2-1.3); CALCIUM 7.7 mg/dl (8.6-10.4); POTASSIUM 4.6 mmol/L (3.6-5.2); TOTAL PROTEIN 7.2 g/dL (6.3-8.3)
[2017-05-25 16:54] LABS: TROPONIN I 0.091 ng/mL (0.00-0.120)
--- NOTE | 2017-05-25 20:15 | CP.PCM.CON ---
History of Present Illness - History of Present Illness History of Present Illness: 67 y/[facility] female [facility] resident with hx of diabetes Mellitus ,CAD, hypertension, CHF, chronic anemia, DVT on coumadin, depression, obesity, dementia, CVA, renal failure admitted with non healing ulcer Rt heel. staff helped in creole interpretation. She Denies chest pain, palpitation, shortness of breath, abdominal pain Rapid response followd by Yaw lobato called this morning as patient was not breathing and unresponsive.Dialysis was discontinued. De.Upon arrival the patient was breathing and had a pulse (bradycardiac initially ). No chest compressions were started and epi was not given . Patient began moving her extremities and opened her eyes about 1 minute after arrival and followed commands.Similar episode yesterday when HD was initiated. Patient was transferred to ICU and had HD using different dialysate and tolerated without change in mental status History from chart and patient Review of Systems - Review of Systems Systems not reviewed;Unavailable: Dementia - Constitutional Constitutional: absent: Chills, Fever, Lethargy - EENT Eyes: absent: Change in Vision, Pain Nose/Mouth/Throat: absent: Bleeding Gums, Sore Throat, Neck Pain - Breasts Breasts: absent: Change in Shape, Mass - Cardiovascular Cardiovascular: Edema, Leg Ulcers. absent: Chest Pain, Dyspnea - Respiratory Respiratory: absent: Cough, Dyspnea, Excessive Mucous Production - Gastrointestinal Gastrointestinal: absent: Abdominal Pain, Nausea, Vomiting - Musculoskeletal Musculoskeletal: absent: Atrophy, Back Pain - Integumentary Integumentary: absent: Pruritus, Rash - Neurological Neurological: Memory Loss. absent: Vertigo, Weakness - Endocrine Endocrine: absent: Palpitations - Hematologic/Lymphatic Hematologic: absent: Easy Bleeding Past Patient History - Past Medical History & Family History Past Medical History?: Yes - Past Social History Smoking Status: Never Smoked - CARDIAC Hx Congestive Heart Failure: Yes Hx Hypercholesterolemia: Yes Hx Hypertension: Yes - PULMONARY Hx Respiratory Disorders: Yes (Dyspnea) - NEUROLOGICAL HX Cerebrovascular Accident: Yes - HEENT Hx HEENT Problems: No - RENAL Hx Chronic Kidney Disease: Yes - ENDOCRINE/METABOLIC Hx Diabetes Mellitus Type 2: Yes - HEMATOLOGICAL/ONCOLOGICAL Hx Blood Disorders: No - INTEGUMENTARY Hx Dermatological Problems: Yes Other/Comment: pt. w/ diabetic ulcer-left heel - MUSCULOSKELETAL/RHEUMATOLOGICAL Hx Musculoskeletal Disorders: Yes Hx Falls: Yes Hx Osteomyelitis: Yes - GASTROINTESTINAL Hx Gastrointestinal Disorders: No - GENITOURINARY/GYNECOLOGICAL Hx Genitourinary Disorders: No - PSYCHIATRIC Hx Substance Use: No - SURGICAL HISTORY Hx Surgeries: Yes Hx Amputation: Yes (Toe) Hx Angiogram: Yes Hx Angioplasty: Yes (02/10/14) - ANESTHESIA Hx Anesthesia: Yes Hx Anesthesia Reactions: No Hx Malignant Hyperthermia: No Meds Allergies/Adverse Reactions: Allergies Allergy/AdvReac Type Severity Reaction Status Date / Time No Known Allergies Allergy Verified 03/20/14 15:10 - Medications Medications: Current Medications Calcium Acetate (Phoslo) 667 mg PO TIDAC [facility] Last Admin: 05/25/17 17:00 Dose: 667 mg Carvedilol (Coreg) 3.125 mg PO BID [facility] Last Admin: 05/25/17 19:03 Dose: 3.125 mg Clopidogrel Bisulfate (Plavix) 75 mg PO DAILY [facility] Last Admin: 05/25/17 09:44 Dose: 75 mg Epoetin Etienne (Procrit) 10,000 unit SC MWF [facility] Last Admin: 05/22/17 12:30 Dose: 10,000 unit Ergocalciferol (Drisdol 50,000 Intl Units Cap) 1 cap PO Q7D [facility] Last Admin: 05/21/17 09:48 Dose: 1 cap Ferrous Gluconate (Fergon) 324 mg PO TID [facility] Last Admin: 05/25/17 19:04 Dose: 324 mg Fluoxetine HCl (Prozac) 20 mg PO DAILY [facility] Last Admin: 05/25/17 09:44 Dose: 20 mg Hydralazine HCl (Apresoline) 25 mg PO Q4 PRN PRN Reason: Other Hydralazine HCl (Apresoline) 50 mg PO BID [facility] Last Admin: 05/25/17 19:02 Dose: 50 mg Piperacillin Sod/Tazobactam Sod (Zosyn 2.25 Gm Iv Premix) 2.25 gm in 50 mls @ 100 mls/hr IVPB Q8H [facility] Last Admin: 05/25/17 19:13 Dose: 100 mls/hr Insulin Aspart (Novolog) 0 unit SC ACHS [facility] PRN Reason: Protocol Last Admin: 05/25/17 19:04 Dose: 3 unit Insulin Glargine (Lantus) 10 unit SC HS [facility] Last Admin: 05/24/17 22:14 Dose: 10 unit Lactulose (Enulose) 20 gm PO HS [facility] Last Admin: 05/24/17 22:14 Dose: 20 gm Pantoprazole Sodium (Protonix Ec Tab) 40 mg PO DAILY [facility] Last Admin: 05/25/17 09:44 Dose: 40 mg Rosuvastatin Calcium (Crestor) 10 mg PO HS [facility] Last Admin: 05/24/17 22:14 Dose: 10 mg Sucralfate (Carafate Tab) 1 gm PO BID [facility] Last Admin: 05/25/17 19:03 Dose: 1 gm Vitamin B Complex/Vit C/Folic Acid (Nephro-Naren) 1 tab PO DAILY [facility] Last Admin: 05/25/17 09:47 Dose: 1 tab Physical Exam - Constitutional Appears: No Acute Distress, Chronically Ill - Head Exam Head Exam: ATRAUMATIC, NORMAL INSPECTION, NORMOCEPHALIC - Eye Exam Eye Exam: EOMI, Normal appearance, PERRL. absent: Conjunctival injection, Scleral icterus - ENT Exam ENT Exam: Mucous Membranes Moist, Normal Oropharynx - Neck Exam Neck exam: Positive for: Normal Inspection. Negative for: Lymphadenopathy - Respiratory Exam Respiratory Exam: Clear to Auscultation Bilateral, NORMAL BREATHING PATTERN Additional comments: Decreased airentry in bases - Cardiovascular Exam Cardiovascular Exam: REGULAR RHYTHM. absent: JVD, Systolic Murmur - GI/Abdominal Exam GI & Abdominal Exam: Normal Bowel Sounds, Soft. absent: Tenderness - Rectal Exam Rectal Exam: Deferred - Extremities Exam Extremities exam: Negative for: calf tenderness Additional comments: bilateral leg swelling with chronic skin changes.Bilateral heel ulcers bilateral Upper extremity swelling ,Left >right - Neurological Exam Neurological exam: Alert - Psychiatric Exam Psychiatric exam: Normal Affect - Skin Skin Exam: Normal Color Additional comments: right chest with Subclavian perma cath Results - Vital Signs Recent Vital Signs: Last Vital Signs Temp 97.6 F 05/25/17 16:53 Pulse 84 05/25/17 19:00 Resp 16 05/25/17 18:02 BP 155/92 H 05/25/17 19:00 Pulse Ox 100 05/25/17 18:02 - Labs Result Diagrams: 05/25/17 08:01 05/25/17 16:24 Labs: Laboratory Results - last 24 hr 05/24/17 05/25/17 05/25/17 21:23 06:44 08:01 WBC RBC Hgb Hct MCV MCH MCHC RDW Plt Count MPV Neut % (Auto) Lymph % (Auto) Bath % (Auto) Eos % (Auto) Baso % (Auto) Neut # Lymph # Bath # Eos # Baso # Sodium 137 Potassium 4.9 Chloride 102 Carbon Dioxide 23 Anion Gap 17 BUN 67 H Creatinine 6.8 H Est GFR ( Amer) 7 Est GFR (Non-Af Amer) 6 POC Glucose (mg/dL) 233 H 157 H Random Glucose 154 H Calcium 7.9 L Total Bilirubin 0.4 AST 17 ALT 41 Alkaline Phosphatase 107 Total Creatine Kinase CK-MB (Mass) Troponin I Total Protein 7.0 Albumin 3.0 L Globulin 4.0 H Albumin/Globulin Ratio 0.7 L Vitamin B12 952 H 05/25/17 05/25/17 05/25/17 08:01 11:43 16:24 WBC 6.5 RBC 3.00 L Hgb 8.9 L Hct 27.9 L MCV 92.8 MCH 29.6 MCHC 31.9 L RDW 19.2 H Plt Count 147 MPV 8.8 Neut % (Auto) 70.9 Lymph % (Auto) 12.6 L Bath % (Auto) 13.1 H Eos % (Auto) 2.5 Baso % (Auto) 0.9 Neut # 4.6 Lymph # 0.8 L Bath # 0.9 H Eos # 0.2 Baso # 0.1 Sodium 136 Potassium 4.6 Chloride 103 Carbon Dioxide 20 L Anion Gap 18 BUN 65 H Creatinine 6.5 H Est GFR ( Amer) 8 Est GFR (Non-Af Amer) 6 POC Glucose (mg/dL) 171 H Random Glucose 154 H Calcium 7.7 L Total Bilirubin 0.4 AST 23 ALT 43 Alkaline Phosphatase 117 Total Creatine Kinase 51 CK-MB (Mass) 0.93 Troponin I 0.0910 Total Protein 7.2 Albumin 3.2 L Globulin 4.1 H Albumin/Globulin Ratio 0.8 L Vitamin B12 05/25/17 16:33 WBC RBC Hgb Hct MCV MCH MCHC RDW Plt Count MPV Neut % (Auto) Lymph % (Auto) Bath % (Auto) Eos % (Auto) Baso % (Auto) Neut # Lymph # Bath # Eos # Baso # Sodium Potassium Chloride Carbon Dioxide Anion Gap BUN Creatinine Est GFR ( Amer) Est GFR (Non-Af Amer) POC Glucose (mg/dL) 223 H Random Glucose Calcium Total Bilirubin AST ALT Alkaline Phosphatase Total Creatine Kinase CK-MB (Mass) Troponin I Total Protein Albumin Globulin Albumin/Globulin Ratio Vitamin B12 Assessment & Plan - Assessment and Plan (Free Text) Assessment: 1.Altered mental status with absent breathing during HD x2.Probably a reaction to dialysate fluid.First time Hd yesterday.Had HD without incident after change of Dialysis fluid. 2.HTN/CAD-continue meds 3.Renal failure on HD 4.Iron Deficiency Anemia-on iron and procrit 5.DM -cont Rx 6.Foot ulcer-on antibiotics
[2017-05-25] MEDS: (Lantus) Insulin Glargine, Recombinant SC SCH (22:00)
--- NOTE | 2017-05-25 23:14 | CP.PCM.PN ---
Subjective - Date & Time of Evaluation Date of Evaluation: 05/25/17 Time of Evaluation: 12:05 - Subjective Subjective: Patient seen and evaluated Comfortable denies chest pain and dyspnea Physical examination - Constitutional Appears: Non-toxic, No Acute Distress - Head Exam Head Exam: NORMAL INSPECTION - Eye Exam Eye Exam: EOMI - ENT Exam ENT Exam: Mucous Membranes Moist - Respiratory Exam Respiratory Exam: Clear to Ausculation Bilateral, NORMAL BREATHING PATTERN. absent: Rales, Rhonchi, Wheezes - Cardiovascular Exam Cardiovascular Exam: REGULAR RHYTHM, +S1, +S2. absent: Gallop, Rubs, Murmur - GI/Abdominal Exam GI & Abdominal Exam: Soft, Normal Bowel Sounds. absent: Tenderness - Extremities Exam Extremities Exam: Pedal Edema Additional comments: pitting edema and venous stasis changes to mid calf b/l negative Shiloh's Warm toes b/l Right heel wrapped in clean bandage odorous feet - Neurological Exam Neurological Exam: Alert, Awake, Oriented x3 - Psychiatric Exam Psychiatric exam: Normal Affect, Normal Mood - Skin Skin Exam: Normal Color, Warm Objective - Vital Signs/Intake and Output Vital Signs (last 24 hours): Temp Pulse Resp BP Pulse Ox 97.4 F L 68 17 154/76 H 100 05/25/17 20:00 05/25/17 22:01 05/25/17 22:01 05/25/17 22:01 05/25/17 22:01 Intake and Output: 05/25/17 05/26/17 18:59 06:59 Intake Total 250 120 Output Total 0 0 Balance 250 120 - Medications Medications: Current Medications Calcium Acetate (Phoslo) 667 mg PO TIDAC [facility] Last Admin: 05/25/17 17:00 Dose: 667 mg Carvedilol (Coreg) 3.125 mg PO BID [facility] Last Admin: 05/25/17 19:03 Dose: 3.125 mg Clopidogrel Bisulfate (Plavix) 75 mg PO DAILY [facility] Last Admin: 05/25/17 09:44 Dose: 75 mg Epoetin Etienne (Procrit) 10,000 unit SC MWF [facility] Last Admin: 05/22/17 12:30 Dose: 10,000 unit Ergocalciferol (Drisdol 50,000 Intl Units Cap) 1 cap PO Q7D [facility] Last Admin: 05/21/17 09:48 Dose: 1 cap Ferrous Gluconate (Fergon) 324 mg PO TID [facility] Last Admin: 05/25/17 19:04 Dose: 324 mg Fluoxetine HCl (Prozac) 20 mg PO DAILY [facility] Last Admin: 05/25/17 09:44 Dose: 20 mg Heparin Sodium (Porcine) (Heparin) 5,000 units SC Q8 [facility] Last Admin: 05/25/17 22:15 Dose: 5,000 units Hydralazine HCl (Apresoline) 25 mg PO Q4 PRN PRN Reason: Other Hydralazine HCl (Apresoline) 50 mg PO BID [facility] Last Admin: 05/25/17 19:02 Dose: 50 mg Piperacillin Sod/Tazobactam Sod (Zosyn 2.25 Gm Iv Premix) 2.25 gm in 50 mls @ 100 mls/hr IVPB Q8H [facility] Last Admin: 05/25/17 19:13 Dose: 100 mls/hr Insulin Aspart (Novolog) 0 unit SC ACHS [facility] PRN Reason: Protocol Last Admin: 05/25/17 22:00 Dose: Not Given Insulin Glargine (Lantus) 10 unit SC [facility] Last Admin: 05/25/17 22:00 Dose: Not Given Lactulose (Enulose) 20 gm PO HS [facility] Last Admin: 05/25/17 22:00 Dose: Not Given Pantoprazole Sodium (Protonix Ec Tab) 40 mg PO DAILY [facility] Last Admin: 05/25/17 09:44 Dose: 40 mg Rosuvastatin Calcium (Crestor) 10 mg PO [facility] Last Admin: 05/25/17 22:15 Dose: 10 mg Sucralfate (Carafate Tab) 1 gm PO BID [facility] Last Admin: 05/25/17 19:03 Dose: 1 gm Vitamin B Complex/Vit C/Folic Acid (Nephro-Naren) 1 tab PO DAILY [facility] Last Admin: 05/25/17 09:47 Dose: 1 tab - Labs Labs: 05/25/17 08:01 05/25/17 16:24 PT 13.8 SECONDS (9.7-12.2) H 05/21/17 07:30 INR 1.2 05/21/17 07:30 APTT 32 SECONDS (21-34) 05/21/17 07:30 Assessment and Plan - Assessment and Plan (Free Text) Assessment: Acute on Chronic ESRD Dailysis MWF Procrit [facility] Nephrology consult - Dr. Jett - help appreciated Phoslo 667mg PO TID DMII F/U HgbA1C Lantus 10U SC HS Novolog 70/30 ISS H/O CVA Plavix 75mg PO daily H/O PVD with stents Plavix 75mg PO daily Warfarin 5mg PO HS INR 2.4 F/U INR daily H/O CHF Lasix 40mg PO daily No B-kam secondary to bradycardia Starting Lisinopril 10mg PO daily H/O Hyperlipidemia Converting home med of lipitor 20mg PO daily to formulary Depression Prozac 20mg PO daily Prophylaxis Protonix 40mg PO daily Sucralfate Warfarin Plavix
[2017-05-26] MEDS: Piperacill/Tazo 2.25gm in Dex 2.25 GM/50 ML BAG IVPB SCH ×2 (03:25→11:00)
[2017-05-26 06:38] LABS: BASO # 0.1 K/uL (0.0-0.2); BASO % 0.8 % (0.0-2.0); EOS # 0.4 K/uL (0.0-0.7); EOS % 5.2 % (0.0-4.0); HEMATOCRIT 29.9 % (34.0-47.0); LYMPH # 0.8 K/uL (1.0-4.3); LYMPH % 11.2 % (20.0-40.0); MEAN CELL VOLUME 94.5 fL (81.0-99.0); MEAN CORPUSCULAR HEMOGLOBIN 28.8 pg (27.0-31.0); MEAN CORPUSCULAR HGB CONC 30.4 g/dL (33.0-37.0); MEAN PLATELET VOLUME 9.6 fL (7.2-11.7); MONO % 14.5 % (0.0-10.0); NRBC % 0.3 % (0.0-2.0); RED CELL DISTRIBUTION WIDTH 19.3 % (11.5-14.5); WHITE BLOOD COUNT 6.8 K/uL (4.8-10.8)
[2017-05-26 06:42] LABS: ALB/GLOB RATIO 0.7 (1.0-2.1); BILIRUBIN,TOTAL 0.5 mg/dL (0.2-1.3); CALCIUM 7.8 mg/dl (8.6-10.4); POTASSIUM 4.3 mmol/L (3.6-5.2); TOTAL PROTEIN 7.2 g/dL (6.3-8.3)
--- NOTE | 2017-05-26 08:27 | CP.PCM.PN ---
Subjective - Date & Time of Evaluation Date of Evaluation: 05/26/17 Time of Evaluation: 07:00 - Subjective Subjective: Vascular Surgery- Dr. Romero Patient seen and examined at bedside this morning. Yesterday Rapid response was called during dialysis. This is the second time this week. Patient was then transferred to the ICU. Patient currently doing well with no complaints. Denies Fevers, chills, chest pain, shortness of breath, nausea vomiting diarrhea. Objective - Vital Signs/Intake and Output Vital Signs (last 24 hours): Temp Pulse Resp BP Pulse Ox 98.2 F 88 18 150/74 99 05/26/17 04:00 05/26/17 07:01 05/26/17 07:01 05/26/17 07:01 05/26/17 07:01 Intake and Output: 05/26/17 05/26/17 06:59 18:59 Intake Total 120 Output Total 0 0 Balance 120 0 - Medications Medications: Current Medications Calcium Acetate (Phoslo) 667 mg PO TIDAC [facility] Last Admin: 05/25/17 17:00 Dose: 667 mg Carvedilol (Coreg) 3.125 mg PO BID [facility] Last Admin: 05/25/17 19:03 Dose: 3.125 mg Clopidogrel Bisulfate (Plavix) 75 mg PO DAILY [facility] Last Admin: 05/25/17 09:44 Dose: 75 mg Epoetin Etienne (Procrit) 10,000 unit SC MWF [facility] Last Admin: 05/22/17 12:30 Dose: 10,000 unit Ergocalciferol (Drisdol 50,000 Intl Units Cap) 1 cap PO Q7D [facility] Last Admin: 05/21/17 09:48 Dose: 1 cap Ferrous Gluconate (Fergon) 324 mg PO TID [facility] Last Admin: 05/25/17 19:04 Dose: 324 mg Fluoxetine HCl (Prozac) 20 mg PO DAILY [facility] Last Admin: 05/25/17 09:44 Dose: 20 mg Heparin Sodium (Porcine) (Heparin) 5,000 units SC Q8 [facility] Last Admin: 05/26/17 05:45 Dose: 5,000 units Hydralazine HCl (Apresoline) 25 mg PO Q4 PRN PRN Reason: Other Hydralazine HCl (Apresoline) 50 mg PO BID [facility] Last Admin: 05/25/17 19:02 Dose: 50 mg Piperacillin Sod/Tazobactam Sod (Zosyn 2.25 Gm Iv Premix) 2.25 gm in 50 mls @ 100 mls/hr IVPB Q8H [facility] Last Admin: 05/26/17 03:25 Dose: 100 mls/hr Insulin Aspart (Novolog) 0 unit SC ACHS [facility] PRN Reason: Protocol Last Admin: 05/25/17 22:00 Dose: Not Given Insulin Glargine (Lantus) [address] [facility] Last Admin: 05/25/17 22:00 Dose: Not Given Lactulose (Enulose) 20 gm PO HS [facility] Last Admin: 05/25/17 22:00 Dose: Not Given Pantoprazole Sodium (Protonix Ec Tab) 40 mg PO DAILY [facility] Last Admin: 05/25/17 09:44 Dose: 40 mg Rosuvastatin Calcium (Crestor) [address] [facility] Last Admin: 05/25/17 22:15 Dose: 10 mg Sucralfate (Carafate Tab) 1 gm PO BID [facility] Last Admin: 05/25/17 19:03 Dose: 1 gm Vitamin B Complex/Vit C/Folic Acid (Nephro-Naren) 1 tab PO DAILY [facility] Last Admin: 05/25/17 09:47 Dose: 1 tab - Labs Labs: 05/26/17 06:24 05/26/17 06:24 PT 13.8 SECONDS (9.7-12.2) H 05/21/17 07:30 INR 1.2 05/21/17 07:30 APTT 32 SECONDS (21-34) 05/21/17 07:30 - Constitutional Appears: No Acute Distress - Head Exam Head Exam: ATRAUMATIC - Eye Exam Eye Exam: EOMI. absent: Scleral icterus - ENT Exam ENT Exam: Mucous Membranes Moist - Respiratory Exam Respiratory Exam: NORMAL BREATHING PATTERN. absent: Accessory Muscle Use, Respiratory Distress - Cardiovascular Exam Cardiovascular Exam: +S1, +S2. absent: Bradycardia, Tachycardia - GI/Abdominal Exam GI & Abdominal Exam: Soft. absent: Distended, Firm, Guarding, Tenderness - Extremities Exam Extremities Exam: Normal Inspection. absent: Calf Tenderness - Neurological Exam Neurological Exam: Alert, Awake, Oriented x3 - Skin Skin Exam: Normal Color, Warm Assessment and Plan - Assessment and Plan (Free Text) Assessment: 67 y/o F w (R) heel ulcer and s/p Permacath insertion POD #2 Recieved dialysis yesterday using Glover Diasylate. No issues during dialysis Plan: - continue glover Diasylate during dialysis - Possible LLE angiogram next week - cont HD per nephrololgy - Eventual R BKA - further recs per Dr. Heather Butt PGY1
[2017-05-26] MEDS: (Novolog) Insulin Aspart, Recombinant 100 u/ml 10 ml vial SC SCH ×4 (08:30→22:00)
[2017-05-26] MEDS: Pantoprazole 40 mg EC Tab PO SCH (11:00)
[2017-05-26] MEDS: Multivitamin Vitamin B Complex (Nephro-Vite) Tab PO SCH (12:11)
--- NOTE | 2017-05-26 12:56 | CP.PCM.PN ---
Subjective - Date & Time of Evaluation Date of Evaluation: 05/26/17 Time of Evaluation: 05:00 - Subjective Subjective: awake alert responsive denies chest pain cough or sob + swelling of extremities no fever Objective - Vital Signs/Intake and Output Vital Signs (last 24 hours): Temp Pulse Resp BP Pulse Ox 98.2 F 73 16 146/74 96 05/26/17 08:00 05/26/17 11:01 05/26/17 11:01 05/26/17 11:01 05/26/17 11:01 Intake and Output: 05/26/17 05/26/17 06:59 18:59 Intake Total 120 400 Output Total 0 0 Balance 120 400 - Medications Medications: Current Medications Calcium Acetate (Phoslo) 667 mg PO TIDAC [facility] Last Admin: 05/26/17 12:00 Dose: 667 mg Carvedilol (Coreg) 3.125 mg PO BID [facility] Last Admin: 05/26/17 11:00 Dose: 3.125 mg Clopidogrel Bisulfate (Plavix) 75 mg PO DAILY [facility] Last Admin: 05/26/17 11:00 Dose: 75 mg Epoetin Etienne (Procrit) 10,000 unit SC MWF [facility] Last Admin: 05/22/17 12:30 Dose: 10,000 unit Ergocalciferol (Drisdol 50,000 Intl Units Cap) 1 cap PO Q7D [facility] Last Admin: 05/21/17 09:48 Dose: 1 cap Ferrous Gluconate (Fergon) 324 mg PO TID [facility] Last Admin: 05/26/17 12:12 Dose: 324 mg Fluoxetine HCl (Prozac) 20 mg PO DAILY [facility] Last Admin: 05/26/17 12:11 Dose: 20 mg Heparin Sodium (Porcine) (Heparin) 5,000 units SC Q8 [facility] Last Admin: 05/26/17 05:45 Dose: 5,000 units Hydralazine HCl (Apresoline) 25 mg PO Q4 PRN PRN Reason: Other Hydralazine HCl (Apresoline) 50 mg PO BID [facility] Last Admin: 05/26/17 11:00 Dose: 50 mg Piperacillin Sod/Tazobactam Sod (Zosyn 2.25 Gm Iv Premix) 2.25 gm in 50 mls @ 100 mls/hr IVPB Q8H [facility] Last Admin: 05/26/17 11:00 Dose: 100 mls/hr Insulin Aspart (Novolog) 0 unit SC [facility] PRN Reason: Protocol Last Admin: 05/26/17 11:57 Dose: 3 unit Insulin Glargine (Lantus) 10 unit SC [facility] Last Admin: 05/25/17 22:00 Dose: Not Given Lactulose (Enulose) 20 gm PO [facility] Last Admin: 05/25/17 22:00 Dose: Not Given Pantoprazole Sodium (Protonix Ec Tab) 40 mg PO DAILY [facility] Last Admin: 05/26/17 11:00 Dose: 40 mg Rosuvastatin Calcium (Crestor) 10 mg PO [facility] Last Admin: 05/25/17 22:15 Dose: 10 mg Sucralfate (Carafate Tab) 1 gm PO BID [facility] Last Admin: 05/26/17 11:00 Dose: 1 gm Vitamin B Complex/Vit C/Folic Acid (Nephro-Naren) 1 tab PO DAILY [facility] Last Admin: 05/26/17 12:11 Dose: 1 tab - Labs Labs: 05/26/17 06:24 05/26/17 06:24 PT 13.8 SECONDS (9.7-12.2) H 05/21/17 07:30 INR 1.2 05/21/17 07:30 APTT 32 SECONDS (21-34) 05/21/17 07:30 - Constitutional Appears: Well - Head Exam Head Exam: ATRAUMATIC, NORMAL INSPECTION, NORMOCEPHALIC - Eye Exam Eye Exam: EOMI, Normal appearance, PERRL Pupil Exam: NORMAL ACCOMODATION, PERRL - ENT Exam ENT Exam: Mucous Membranes Moist, Normal Exam - Neck Exam Neck Exam: Full ROM, Normal Inspection. absent: Lymphadenopathy - Respiratory Exam Respiratory Exam: Clear to Ausculation Bilateral, NORMAL BREATHING PATTERN - Cardiovascular Exam Cardiovascular Exam: REGULAR RHYTHM, +S1, +S2. absent: Murmur - GI/Abdominal Exam GI & Abdominal Exam: Soft, Normal Bowel Sounds. absent: Tenderness - Rectal Exam Rectal Exam: NORMAL INSPECTION - Exam Exam: NORMAL INSPECTION - Extremities Exam Extremities Exam: Full ROM, Normal Capillary Refill, Normal Inspection. absent : Joint Swelling, Pedal Edema - Back Exam Back Exam: NORMAL INSPECTION - Neurological Exam Neurological Exam: Alert, Awake, CN II-XII Intact, Normal Gait, Oriented x3 - Psychiatric Exam Psychiatric exam: Normal Affect, Normal Mood - Skin Skin Exam: Dry, Intact, Normal Color, Warm Assessment and Plan (1) Acute on chronic renal failure Status: Acute (2) Dehydration Status: Acute (3) Diabetic infection of right foot Status: Acute (4) Anemia Status: Acute (5) Chronic heel ulcer Status: Acute - Assessment and Plan (Free Text) Assessment: cont iv antibioitics HD as needed Plan: cont wound care
[2017-05-26] MEDS ORDERED: ceFAZolin IV 2 gm in Dextrose 1 GM/50 ML BAG IVPB ONE (13:30)
--- NOTE | 2017-05-26 19:41 | CP.PCM.PN ---
Subjective - Date & Time of Evaluation Date of Evaluation: 05/26/17 Time of Evaluation: 17:00 - Subjective Subjective: Patient seen and evaluated in ICU Denies chest pain and dyspnea Cardiac cath prior to Vascular surgery cath either tomorrow or Saturday Physical examination - Constitutional Appears: Non-toxic, No Acute Distress - Head Exam Head Exam: NORMAL INSPECTION - Eye Exam Eye Exam: EOMI - ENT Exam ENT Exam: Mucous Membranes Moist - Respiratory Exam Respiratory Exam: Clear to Ausculation Bilateral, NORMAL BREATHING PATTERN. absent: Rales, Rhonchi, Wheezes - Cardiovascular Exam Cardiovascular Exam: REGULAR RHYTHM, +S1, +S2. absent: Gallop, Rubs, Murmur - GI/Abdominal Exam GI & Abdominal Exam: Soft, Normal Bowel Sounds. absent: Tenderness - Extremities Exam Extremities Exam: Pedal Edema Additional comments: pitting edema and venous stasis changes to mid calf b/l negative Shiloh's Warm toes b/l Right heel wrapped in clean bandage odorous feet - Neurological Exam Neurological Exam: Alert, Awake, Oriented x3 - Psychiatric Exam Psychiatric exam: Normal Affect, Normal Mood - Skin Skin Exam: Normal Color, Warm Objective - Vital Signs/Intake and Output Vital Signs (last 24 hours): Temp Pulse Resp BP Pulse Ox 98.2 F 73 12 159/75 H 95 05/26/17 16:00 05/26/17 18:01 05/26/17 17:01 05/26/17 18:01 05/26/17 18:01 Intake and Output: 05/26/17 05/27/17 18:59 06:59 Intake Total 1500 Output Total 0 Balance 1500 - Medications Medications: Current Medications Calcium Acetate (Phoslo) 667 mg PO TIDAC [facility] Last Admin: 05/26/17 17:56 Dose: 667 mg Carvedilol (Coreg) 3.125 mg PO BID [facility] Last Admin: 05/26/17 17:57 Dose: 3.125 mg Clopidogrel Bisulfate (Plavix) 75 mg PO DAILY [facility] Last Admin: 05/26/17 11:00 Dose: 75 mg Epoetin Etienne (Procrit) 10,000 unit SC MWF [facility] Last Admin: 05/22/17 12:30 Dose: 10,000 unit Ergocalciferol (Drisdol 50,000 Intl Units Cap) 1 cap PO Q7D [facility] Last Admin: 05/21/17 09:48 Dose: 1 cap Ferrous Gluconate (Fergon) 324 mg PO TID [facility] Last Admin: 05/26/17 14:00 Dose: 324 mg Fluoxetine HCl (Prozac) 20 mg PO DAILY [facility] Last Admin: 05/26/17 12:11 Dose: 20 mg Heparin Sodium (Porcine) (Heparin) 5,000 units SC Q8 [facility] Last Admin: 05/26/17 15:00 Dose: 5,000 units Hydralazine HCl (Apresoline) 25 mg PO Q4 PRN PRN Reason: Other Hydralazine HCl (Apresoline) 50 mg PO BID [facility] Last Admin: 05/26/17 17:56 Dose: 50 mg Cefazolin Sodium/Dextrose (Ancef Iv 2 Gm Duplex) 2 gm in 50 mls @ 100 mls/hr IVPB MWF [facility] Insulin Aspart (Novolog) 0 unit SC ACHS [facility] PRN Reason: Protocol Last Admin: 05/26/17 17:58 Dose: 3 unit Insulin Glargine (Lantus) 10 unit SC [facility] Last Admin: 05/25/17 22:00 Dose: Not Given Lactulose (Enulose) 20 gm PO HS [facility] Last Admin: 05/25/17 22:00 Dose: Not Given Pantoprazole Sodium (Protonix Ec Tab) 40 mg PO DAILY [facility] Last Admin: 05/26/17 11:00 Dose: 40 mg Rosuvastatin Calcium (Crestor) 10 mg PO HS [facility] Last Admin: 05/25/17 22:15 Dose: 10 mg Sucralfate (Carafate Tab) 1 gm PO BID [facility] Last Admin: 05/26/17 17:55 Dose: 1 gm Vitamin B Complex/Vit C/Folic Acid (Nephro-Naren) 1 tab PO DAILY [facility] Last Admin: 05/26/17 12:11 Dose: 1 tab - Labs Labs: 05/26/17 06:24 05/26/17 06:24 PT 13.8 SECONDS (9.7-12.2) H 05/21/17 07:30 INR 1.2 05/21/17 07:30 APTT 32 SECONDS (21-34) 05/21/17 07:30 Assessment and Plan - Assessment and Plan (Free Text) Assessment: 1, 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 DM 2 3. HTN 4. PAD 5. Hyperlipidemia 6. CKD on HD For Cath Saturday prior to surgery
--- NOTE | 2017-05-26 19:56 | CP.CCUPN ---
CCU Subjective - Physician Review Events Since Last Encounter (Free Text): 05/26/17 19:53 Patient currently doing well with no complaints. Denies Fevers, chills, chest pain, shortness of breath, nausea vomiting diarrhea. patient to be in ICU for 2nd hemodialysis which is scheduled for tomorrow morningi CCU Objective - Vital Signs / Intake & Output Vital Signs (Last 4 hours): Vital Signs Temp Pulse Resp BP Pulse Ox 05/26/17 18:01 73 159/75 H 95 05/26/17 17:01 74 12 150/75 98 05/26/17 16:00 98.2 F Intake and Output (Last 8hrs): Intake & Output 05/26/17 05/26/17 05/26/17 06:59 14:59 22:59 Intake Total 1000 500 Output Total 0 0 0 Balance 0 1000 500 Weight 276 lb 270 lb Intake: Oral 1000 500 Output: Urine 0 0 0 Urine, Voided 0 0 0 Other: # Bowel Movements 1 - Physical Exam Physical Exam Limitations: Negative for: Altered Mental Status Head: Positive for: Atraumatic, Normocephalic Pupils: Positive for: PERRL Extroacular Muscles: Positive for: EOMI Conjunctiva: Positive for: Normal Mouth: Positive for: Moist Mucous Membranes Pharnyx: Negative for: ERYTHEMA Nose (External): Negative for: Laceration Nose (Internal): Positive for: Normal Inspection Neck: Positive for: Normal Range of Motion Respiratory/Chest: Positive for: Clear to Auscultation, Other (decreased airentry in bases) Cardiovascular: Positive for: Regular Rate and Rhythm, Normal S1, S2. Negative for: Murmurs Abdomen: Positive for: Normal Bowel Sounds. Negative for: Tenderness, Distention, Feeding Tubes Upper Extremity: Positive for: Edema (edema left >right) Lower Extremity: Positive for: Edema (bilateral leg ebema with chronic skin changes,foot ulcers) Skin: Positive for: Warm - Medications Active Medications: Active Medications Generic Name Dose Route Start Last Admin Trade Name Freq PRN Reason Stop Dose Admin Calcium Acetate 667 mg 05/18/17 11:30 05/26/17 17:56 Phoslo PO 667 mg TIDAC [facility] Administration Carvedilol 3.125 mg 05/15/17 11:30 05/26/17 17:57 Coreg PO 3.125 mg BID [facility] Administration Clopidogrel Bisulfate 75 mg 05/14/17 10:00 05/26/17 11:00 Plavix PO 75 mg DAILY [facility] Administration Epoetin Etienne 10,000 unit 05/15/17 09:00 05/22/17 12:30 [place] 10,000 [place] [facility] Ergocalciferol 1 cap 05/14/17 10:15 05/21/17 09:48 Drisdol 50,000 Intl Units Cap PO 1 cap Q7D [facility] Administration Ferrous Gluconate 324 mg 05/14/17 14:00 05/26/17 14:00 Fergon PO 324 mg TID [facility] Administration Fluoxetine HCl 20 mg 05/14/17 10:00 05/26/17 12:11 Prozac PO 20 mg DAILY [facility] Administration Heparin Sodium (Porcine) 5,000 units 05/25/17 22:00 05/26/17 15:00 Heparin SC 5,000 units Q8 [facility] Administration Hydralazine HCl 25 mg 05/16/17 16:58 Apresoline PO Q4 PRN Other Hydralazine HCl 50 mg 05/21/17 11:00 05/26/17 17:56 Apresoline PO 50 mg BID [facility] Administration Cefazolin Sodium/Dextrose 2 gm in 50 mls @ 100 mls/hr 05/27/17 09:00 Ancef Iv 2 Gm Duplex [place] [facility]ulin Aspart 0 unit 05/19/17 12:30 05/26/17 17:58 Novolog SC [address] [facility] Administration Protocol Insulin Glargine 10 unit 05/13/17 22:00 05/25/17 22:00 Lantus SC Not Given HS [facility] Lactulose 20 gm 05/13/17 22:00 05/25/17 22:00 Enulose PO Not Given HS [facility] Pantoprazole Sodium 40 mg 05/14/17 10:00 05/26/17 11:00 Protonix Ec Tab PO 40 mg DAILY [facility] Administration Rosuvastatin Calcium 10 mg 05/13/17 22:00 05/25/17 22:15 Crestor PO 10 mg HS [facility] Administration Sucralfate 1 gm 05/13/17 18:00 05/26/17 17:55 Carafate Tab PO 1 gm BID [facility] Administration Vitamin B Complex/Vit C/Folic Acid 1 tab 05/14/17 10:00 05/26/17 12:11 Nephro-Naren PO 1 tab DAILY [facility] Administration - Patient Studies Lab Studies: Microbiology Studies 05/25/17 13:30 Blood Culture - Preliminary Blood-Venous NO GROWTH AFTER 24 HOURS 05/25/17 14:00 Blood Culture - Preliminary Blood-Venous NO GROWTH AFTER 24 HOURS 05/25/17 13:18 MRSA Culture (Admit) - Final Naris MRSA NOT DETECTED Lab Studies 05/26/17 05/26/17 05/26/17 Range/Units 15:54 11:29 06:24 WBC (4.8-10.8) K/uL RBC (3.80-5.20) Mil/uL Hgb (11.0-16.0) g/dL Hct (34.0-47.0) % MCV (81.0-99.0) fL MCH (27.0-31.0) pg MCHC (33.0-37.0) g/dL RDW (11.5-14.5) % Plt Count (130-400) K/uL MPV (7.2-11.7) fL Neut % (Auto) (50.0-75.0) % Lymph % (Auto) (20.0-40.0) % [place] % (Auto) (0.0-10.0) % Eos % (Auto) (0.0-4.0) % Baso % (Auto) (0.0-2.0) % Neut # (1.8-7.0) K/uL Lymph # (1.0-4.3) K/uL [place] # (0.0-0.8) K/uL Eos # (0.0-0.7) K/uL Baso # (0.0-0.2) K/uL Sodium 135 (132-148) mmol/L Potassium 4.3 (3.6-5.2) mmol/L Chloride 102 (98-107) mmol/L Carbon Dioxide 23 (22-30) mmol/L Anion Gap 15 (10-20) BUN 48 H (7-17) mg/dL Creatinine 5.2 H (0.7-1.2) mg/dL Est GFR ( Amer) 10 Est GFR (Non-Af Amer) 8 POC Glucose (mg/dL) 211 H 223 H (65-110) mg/dL Random Glucose 108 H (65-105) mg/dL Calcium 7.8 L (8.6-10.4) mg/dl Total Bilirubin 0.5 (0.2-1.3) mg/dL AST 25 (14-36) U/L ALT 40 (9-52) U/L Alkaline Phosphatase 112 (38-126) U/L Total Protein 7.2 (6.3-8.3) g/dL Albumin 3.1 L (3.5-5.0) g/dL Globulin 4.1 H (2.2-3.9) gm/dL Albumin/Globulin Ratio 0.7 L (1.0-2.1) 05/26/17 05/25/17 Range/Units 06:24 21:09 WBC 6.8 (4.8-10.8) K/uL RBC 3.16 L (3.80-5.20) Mil/uL Hgb 9.1 L (11.0-16.0) g/dL Hct 29.9 L (34.0-47.0) % MCV 94.5 (81.0-99.0) fL MCH 28.8 (27.0-31.0) pg MCHC 30.4 L (33.0-37.0) g/dL RDW 19.3 H (11.5-14.5) % Plt Count 158 (130-400) K/uL MPV 9.6 (7.2-11.7) fL Neut % (Auto) 68.3 (50.0-75.0) % Lymph % (Auto) 11.2 L (20.0-40.0) % [place] % (Auto) 14.5 H (0.0-10.0) % Eos % (Auto) 5.2 H (0.0-4.0) % Baso % (Auto) 0.8 (0.0-2.0) % Neut # 4.6 (1.8-7.0) K/uL Lymph # 0.8 L (1.0-4.3) K/uL [place] # 1.0 H (0.0-0.8) K/uL Eos # 0.4 (0.0-0.7) K/uL Baso # 0.1 (0.0-0.2) K/uL Sodium (132-148) mmol/L Potassium (3.6-5.2) mmol/L Chloride (98-107) mmol/L Carbon Dioxide (22-30) mmol/L Anion Gap (10-20) BUN (7-17) mg/dL Creatinine (0.7-1.2) mg/dL Est GFR ( Amer) Est GFR (Non-Af Amer) POC Glucose (mg/dL) 171 H (65-110) mg/dL Random Glucose (65-105) mg/dL Calcium (8.6-10.4) mg/dl Total Bilirubin (0.2-1.3) mg/dL AST (14-36) U/L ALT (9-52) U/L Alkaline Phosphatase (38-126) U/L Total Protein (6.3-8.3) g/dL Albumin (3.5-5.0) g/dL Globulin (2.2-3.9) gm/dL Albumin/Globulin Ratio (1.0-2.1) Laboratory Results - last 24 hr 05/25/17 05/26/17 05/26/17 21:09 06:24 06:24 WBC 6.8 RBC 3.16 L Hgb 9.1 L Hct 29.9 L MCV 94.5 MCH 28.8 MCHC 30.4 L RDW 19.3 H Plt Count 158 MPV 9.6 Neut % (Auto) 68.3 Lymph % (Auto) 11.2 L [place] % (Auto) 14.5 H Eos % (Auto) 5.2 H Baso % (Auto) 0.8 Neut # 4.6 Lymph # 0.8 L [place] # 1.0 H Eos # 0.4 Baso # 0.1 Sodium 135 Potassium 4.3 Chloride 102 Carbon Dioxide 23 Anion Gap 15 BUN 48 H Creatinine 5.2 H Est GFR ( Amer) 10 Est GFR (Non-Af Amer) 8 POC Glucose (mg/dL) 171 H Random Glucose 108 H Calcium 7.8 L Total Bilirubin 0.5 AST 25 ALT 40 Alkaline Phosphatase 112 Total Protein 7.2 Albumin 3.1 L Globulin 4.1 H Albumin/Globulin Ratio 0.7 L 05/26/17 05/26/17 11:29 15:54 WBC RBC Hgb Hct MCV MCH MCHC RDW Plt Count MPV Neut % (Auto) Lymph % (Auto) [place] % (Auto) Eos % (Auto) Baso % (Auto) Neut # Lymph # [place] # Eos # Baso # Sodium Potassium Chloride Carbon Dioxide Anion Gap BUN Creatinine Est GFR ( Amer) Est GFR (Non-Af Amer) POC Glucose (mg/dL) 223 H 211 H Random Glucose Calcium Total Bilirubin AST ALT Alkaline Phosphatase Total Protein Albumin Globulin Albumin/Globulin Ratio Fingerstick Blood Sugar Results: 211 Review of Systems - EENT Nose/Mouth/Throat: absent: Epistaxis, Sore Throat, Neck Pain, Neck Mass - Cardiovascular Cardiovascular: Leg Ulcers. absent: Chest Pain, Lightheadedness, Palpitations - Respiratory Respiratory: absent: Cough, Dyspnea - Gastrointestinal Gastrointestinal: absent: Diarrhea, Nausea, Vomiting - Musculoskeletal Musculoskeletal: absent: Muscle Weakness - Integumentary Integumentary: Skin Ulcer. absent: Pruritus - Neurological Neurological: absent: Dizziness - Hematologic/Lymphatic Hematologic: absent: Easy Bleeding Critical Care Progress Note - Prophylaxis GI Prophylaxis GI: PPI - Prophylaxis DVT Prophylaxis DVT: Heparin SQ - Nutrition Nutrition: Nutrition Category Date Time Status Renal Diet [DIET] Diets 05/23/17 Dinner Active Assessment/Plan - Assessment and Plan (Free Text) Assessment: 1.Renal failure on Hemodialysis.Had reaction as soon as dialysis was started on 2 consequative days .Dialysate changed and patient tolerated HD yesterday.will be observed in ICU during HD tomorrow 2.Anemia stable Hb 3.DM on meds 4.Heel Ulcer on antbiotics awaiting further work up.
[2017-05-26] MEDS: (Lantus) Insulin Glargine, Recombinant SC SCH (21:55)
[2017-05-27 06:33] LABS: BASO # 0.1 K/uL (0.0-0.2); BASO % 1.1 % (0.0-2.0); EOS # 0.3 K/uL (0.0-0.7); EOS % 4.7 % (0.0-4.0); HEMATOCRIT 28.5 % (34.0-47.0); LYMPH # 0.9 K/uL (1.0-4.3); MEAN CELL VOLUME 94.1 fL (81.0-99.0); MEAN CORPUSCULAR HEMOGLOBIN 28.8 pg (27.0-31.0); MEAN CORPUSCULAR HGB CONC 30.6 g/dL (33.0-37.0); MEAN PLATELET VOLUME 9.4 fL (7.2-11.7); MONO # 0.9 K/uL (0.0-0.8); MONO % 13.5 % (0.0-10.0); NRBC % 0.3 % (0.0-2.0); RED CELL DISTRIBUTION WIDTH 19.4 % (11.5-14.5); WHITE BLOOD COUNT 6.7 K/uL (4.8-10.8)
[2017-05-27 06:51] LABS: ALB/GLOB RATIO 0.8 (1.0-2.1); BILIRUBIN,TOTAL 0.4 mg/dL (0.2-1.3); CALCIUM 8.1 mg/dl (8.6-10.4); POTASSIUM 4.4 mmol/L (3.6-5.2); TOTAL PROTEIN 6.9 g/dL (6.3-8.3)
[2017-05-27] MEDS ORDERED: ceFAZolin IV 2 gm in Dextrose 2 GM/50 ML BAG IVPB SCH (09:00)
[2017-05-27] MEDS: Pantoprazole 40 mg EC Tab PO SCH (09:15)
[2017-05-27] MEDS: Multivitamin Vitamin B Complex (Nephro-Vite) Tab PO SCH (09:15)
--- NOTE | 2017-05-27 09:19 | CP.PCM.PN ---
Subjective - Date & Time of Evaluation Date of Evaluation: 05/27/17 Time of Evaluation: 09:15 - Subjective Subjective: Ms. Taveras was seen and examined at the bedside. She is alert, but with episode of confusion. She is not able to verbalize her name, time, and place. She think she is still in [facility]. She denies any headache, blurred vision, nausea , or vomiting.She is able to follow simple commands such as eye and finger to nose accommodation. There is no upper extremities drift. There is no untoward events overnight. Objective - Vital Signs/Intake and Output Vital Signs (last 24 hours): Temp Pulse Resp BP Pulse Ox 98.2 F 73 17 130/83 98 05/27/17 08:00 05/27/17 09:01 05/27/17 09:01 05/27/17 09:01 05/27/17 09:01 Intake and Output: 05/27/17 05/27/17 06:59 18:59 Intake Total 120 400 Output Total 0 0 Balance 120 400 - Medications Medications: Current Medications Calcium Acetate (Phoslo) 667 mg PO TIDAC [facility] Last Admin: 05/26/17 17:56 Dose: 667 mg Carvedilol (Coreg) 3.125 mg PO BID [facility] Last Admin: 05/26/17 17:57 Dose: 3.125 mg Clopidogrel Bisulfate (Plavix) 75 mg PO DAILY [facility] Last Admin: 05/26/17 11:00 Dose: 75 mg Epoetin Etienne (Procrit) 10,000 unit SC MWF [facility] Last Admin: 05/22/17 12:30 Dose: 10,000 unit Ergocalciferol (Drisdol 50,000 Intl Units Cap) 1 cap PO Q7D [facility] Last Admin: 05/21/17 09:48 Dose: 1 cap Ferrous Gluconate (Fergon) 324 mg PO TID [facility] Last Admin: 05/26/17 14:00 Dose: 324 mg Fluoxetine HCl (Prozac) 20 mg PO DAILY [facility] Last Admin: 05/26/17 12:11 Dose: 20 mg Heparin Sodium (Porcine) (Heparin) 5,000 units SC Q8 [facility] Last Admin: 05/27/17 07:00 Dose: 5,000 units Hydralazine HCl (Apresoline) 25 mg PO Q4 PRN PRN Reason: Other Hydralazine HCl (Apresoline) 50 mg PO BID [facility] Last Admin: 05/26/17 17:56 Dose: 50 mg Cefazolin Sodium/Dextrose (Ancef Iv 2 Gm Duplex) 2 gm in 50 mls @ 100 mls/hr IVPB [facility] Insulin Aspart (Novolog) 0 unit SC [facility] PRN Reason: Protocol Last Admin: 05/26/17 22:00 Dose: Not Given Insulin Glargine (Lantus) 10 unit SC [facility] Last Admin: 05/26/17 21:55 Dose: 10 unit Lactulose (Enulose) 20 gm PO [facility] Last Admin: 05/26/17 22:00 Dose: Not Given Pantoprazole Sodium (Protonix Ec Tab) 40 mg PO DAILY [facility] Last Admin: 05/26/17 11:00 Dose: 40 mg Rosuvastatin Calcium (Crestor) 10 mg PO [facility] Last Admin: 05/26/17 21:55 Dose: 10 mg Sucralfate (Carafate Tab) 1 gm PO BID [facility] Last Admin: 05/26/17 17:55 Dose: 1 gm Vitamin B Complex/Vit C/Folic Acid (Nephro-Naren) 1 tab PO DAILY [facility] Last Admin: 05/26/17 12:11 Dose: 1 tab - Labs Labs: 05/27/17 06:23 05/27/17 06:24 PT 13.8 SECONDS (9.7-12.2) H 05/21/17 07:30 INR 1.2 05/21/17 07:30 APTT 32 SECONDS (21-34) 05/21/17 07:30 - Constitutional Appears: No Acute Distress - Head Exam Head Exam: ATRAUMATIC - Neurological Exam Neurological Exam: Alert, Awake Neuro motor strength exam: Left Upper Extremity: 5, Right Upper Extremity: 5, Left Lower Extremity: 5, Right Lower Extremity: 5 Additional comments: She is unable to answer questions appropriately, but follow simple commands. Sensation remains intact. Assessment and Plan (1) Encephalopathy acute Assessment & Plan: Case discussed with Dr. Devine, Recommends MRI of the brain without contrast, MRA of the head/neck without contrast, Echocardiogram with bubble study, Aspirin 81 mg daily. Continue all other medical regimen. Status: Acute
[2017-05-27] MEDS: (Novolog) Insulin Aspart, Recombinant 100 u/ml 10 ml vial SC SCH ×4 (09:22→22:19)
--- NOTE | 2017-05-27 14:32 | CP.CCUPN ---
<Alex Carranza - Last Filed: 05/27/17 18:55> CCU Subjective - Physician Review Subjective (Free Text): 05/27/17 14:27 Patient seen and examined at bedside this morning. Patient is alert but is confused this morning. When asked where she is, patient states [place]. She does not answer questions of name or date. Patient denies all complaints at this time but ROS are not reliable due to patient's confusion. CCU Objective - Vital Signs / Intake & Output Vital Signs (Last 4 hours): Vital Signs Pulse Resp BP Pulse Ox 05/27/17 11:01 72 15 138/75 97 Intake and Output (Last 8hrs): Intake & Output 05/26/17 05/27/17 05/27/17 22:59 06:59 14:59 Intake Total 620 400 Output Total 0 0 0 Balance 620 0 400 Weight 276 lb 4 oz 276 lb Intake: Oral 620 400 Output: Urine 0 0 0 Urine, Voided 0 0 0 Other: # Bowel Movements 1 - Physical Exam Head: Positive for: Atraumatic, Normocephalic Pupils: Positive for: PERRL Extroacular Muscles: Positive for: EOMI Conjunctiva: Positive for: Normal Mouth: Positive for: Moist Mucous Membranes Pharnyx: Negative for: ERYTHEMA Nose (External): Negative for: Laceration Nose (Internal): Positive for: Normal Inspection Neck: Positive for: Normal Range of Motion Respiratory/Chest: Positive for: Clear to Auscultation, Other (decreased airentry in bases) Cardiovascular: Positive for: Regular Rate and Rhythm, Normal S1, S2. Negative for: Murmurs Abdomen: Positive for: Normal Bowel Sounds. Negative for: Tenderness, Distention, Feeding Tubes Upper Extremity: Positive for: Edema (edema left >right), NORMAL PULSES Lower Extremity: Positive for: Edema (bilateral leg ebema with chronic skin changes,foot ulcers), NORMAL PULSES, Capillary Refill < 2 s. Negative for: CALF TENDERNESS Skin: Positive for: Warm - Medications Active Medications: Active Medications Generic Name Dose Route Start Last Admin Trade Name Freq PRN Reason Stop Dose Admin Calcium Acetate 667 mg 05/18/17 11:30 05/27/17 09:15 Phoslo PO 667 mg TIDAC DONALD Administration Carvedilol 3.125 mg 05/15/17 11:30 05/27/17 09:15 Coreg PO 3.125 mg BID DONALD Administration Clopidogrel Bisulfate 75 mg 05/14/17 10:00 05/27/17 09:14 Plavix PO 75 mg DAILY [facility] Administration Epoetin Etienne 10,000 unit 05/15/17 09:00 05/22/17 12:30 Procrit SC 10,000 unit [facility] Administration Ergocalciferol 1 cap 05/14/17 10:15 05/21/17 09:48 Drisdol 50,000 Intl Units Cap PO 1 cap Q7D DONALD Administration Ferrous Gluconate 324 mg 05/14/17 14:00 05/27/17 09:15 Fergon PO 324 mg TID DONALD Administration Fluoxetine HCl 20 mg 05/14/17 10:00 05/27/17 09:14 Prozac PO 20 mg DAILY [facility] Administration Heparin Sodium (Porcine) 5,000 units 05/25/17 22:00 05/27/17 07:00 Heparin SC 5,000 units Q8 DONALD Administration Heparin Sodium (Porcine) 2,000 units 05/28/17 10:00 Heparin IVP 06/06/17 10:01 TTS [facility] Hydralazine HCl 25 mg 05/16/17 16:58 Apresoline PO Q4 PRN Other Hydralazine HCl 50 mg 05/21/17 11:00 05/27/17 09:14 Apresoline PO 50 mg BID DONALD Administration Cefazolin Sodium/Dextrose 2 gm in 50 mls @ 100 mls/hr 05/27/17 09:00 09:16 Ancef Iv 2 Gm Duplex IVPB 100 mls/hr [facility] Administration Insulin Aspart 0 unit 05/19/17 12:30 05/27/17 09:22 Novolog SC Not Given [facility] Protocol Insulin Glargine 10 unit 05/13/17 22:00 05/26/17 21:55 Lantus SC 10 unit HS [facility] Administration Lactulose 20 gm 05/13/17 22:00 05/26/17 22:00 Enulose PO Not Given HS [facility] Pantoprazole Sodium 40 mg 05/14/17 10:00 05/27/17 09:15 Protonix Ec Tab PO 40 mg DAILY [facility] Administration Rosuvastatin Calcium 10 mg 05/13/17 22:00 05/26/17 21:55 Crestor PO 10 mg HS DONALD Administration Sucralfate 1 gm 05/13/17 18:00 05/27/17 09:15 Carafate Tab PO 1 gm BID DONALD Administration Vitamin B Complex/Vit C/Folic Acid 1 tab 05/14/17 10:00 05/27/17 09:15 Nephro-Naren PO 1 tab DAILY DONALD Administration - Patient Studies Lab Studies: Microbiology Studies 05/25/17 13:30 Blood Culture - Preliminary Blood-Venous NO GROWTH AFTER 24 HOURS 05/25/17 14:00 Blood Culture - Preliminary Blood-Venous NO GROWTH AFTER 24 HOURS 05/25/17 13:18 MRSA Culture (Admit) - Final Naris MRSA NOT DETECTED Lab Studies 05/27/17 05/27/17 05/27/17 Range/Units 11:42 07:48 06:24 WBC (4.8-10.8) K/uL RBC (3.80-5.20) Mil/uL Hgb (11.0-16.0) g/dL Hct (34.0-47.0) % MCV (81.0-99.0) fL MCH (27.0-31.0) pg MCHC (33.0-37.0) g/dL RDW (11.5-14.5) % Plt Count (130-400) K/uL MPV (7.2-11.7) fL Neut % (Auto) (50.0-75.0) % Lymph % (Auto) (20.0-40.0) % Alcorn % (Auto) (0.0-10.0) % Eos % (Auto) (0.0-4.0) % Baso % (Auto) (0.0-2.0) % Neut # (1.8-7.0) K/uL Lymph # (1.0-4.3) K/uL Alcorn # (0.0-0.8) K/uL Eos # (0.0-0.7) K/uL Baso # (0.0-0.2) K/uL Sodium 133 (132-148) mmol/L Potassium 4.4 (3.6-5.2) mmol/L Chloride 101 (98-107) mmol/L Carbon Dioxide 24 (22-30) mmol/L Anion Gap 12 (10-20) BUN 48 H (7-17) mg/dL Creatinine 5.4 H (0.7-1.2) mg/dL Est GFR ( Amer) 10 Est GFR (Non-Af Amer) 8 POC Glucose (mg/dL) 221 H 149 H (65-110) mg/dL Random Glucose 142 H (65-105) mg/dL Calcium 8.1 L (8.6-10.4) mg/dl Total Bilirubin 0.4 (0.2-1.3) mg/dL AST 19 (14-36) U/L ALT 38 (9-52) U/L Alkaline Phosphatase 100 (38-126) U/L Total Protein 6.9 (6.3-8.3) g/dL Albumin 3.0 L (3.5-5.0) g/dL Globulin 3.9 (2.2-3.9) gm/dL Albumin/Globulin Ratio 0.8 L (1.0-2.1) 05/27/17 05/26/17 05/26/17 Range/Units 06:23 21:28 15:54 WBC 6.7 (4.8-10.8) K/uL RBC 3.03 L (3.80-5.20) Mil/uL Hgb 8.7 L (11.0-16.0) g/dL Hct 28.5 L (34.0-47.0) % MCV 94.1 (81.0-99.0) fL MCH 28.8 (27.0-31.0) pg MCHC 30.6 L (33.0-37.0) g/dL RDW 19.4 H (11.5-14.5) % Plt Count 156 (130-400) K/uL MPV 9.4 (7.2-11.7) fL Neut % (Auto) 67.7 (50.0-75.0) % Lymph % (Auto) 13.0 L (20.0-40.0) % Alcorn % (Auto) 13.5 H (0.0-10.0) % Eos % (Auto) 4.7 H (0.0-4.0) % Baso % (Auto) 1.1 (0.0-2.0) % Neut # 4.6 (1.8-7.0) K/uL Lymph # 0.9 L (1.0-4.3) K/uL Alcorn # 0.9 H (0.0-0.8) K/uL Eos # 0.3 (0.0-0.7) K/uL Baso # 0.1 (0.0-0.2) K/uL Sodium (132-148) mmol/L Potassium (3.6-5.2) mmol/L Chloride (98-107) mmol/L Carbon Dioxide (22-30) mmol/L Anion Gap (10-20) BUN (7-17) mg/dL Creatinine (0.7-1.2) mg/dL Est GFR ( Amer) Est GFR (Non-Af Amer) POC Glucose (mg/dL) 214 H 211 H (65-110) mg/dL Random Glucose (65-105) mg/dL Calcium (8.6-10.4) mg/dl Total Bilirubin (0.2-1.3) mg/dL AST (14-36) U/L ALT (9-52) U/L Alkaline Phosphatase (38-126) U/L Total Protein (6.3-8.3) g/dL Albumin (3.5-5.0) g/dL Globulin (2.2-3.9) gm/dL Albumin/Globulin Ratio (1.0-2.1) Laboratory Results - last 24 hr 05/26/17 05/26/17 05/27/17 15:54 21:28 06:23 WBC 6.7 RBC 3.03 L Hgb 8.7 L Hct 28.5 L MCV 94.1 MCH 28.8 MCHC 30.6 L RDW 19.4 H Plt Count 156 MPV 9.4 Neut % (Auto) 67.7 Lymph % (Auto) 13.0 L Alcorn % (Auto) 13.5 H Eos % (Auto) 4.7 H Baso % (Auto) 1.1 Neut # 4.6 Lymph # 0.9 L Alcorn # 0.9 H Eos # 0.3 Baso # 0.1 Sodium Potassium Chloride Carbon Dioxide Anion Gap BUN Creatinine Est GFR ( Amer) Est GFR (Non-Af Amer) POC Glucose (mg/dL) 211 H 214 H Random Glucose Calcium Total Bilirubin AST ALT Alkaline Phosphatase Total Protein Albumin Globulin Albumin/Globulin Ratio 05/27/17 05/27/17 05/27/17 06:24 07:48 11:42 WBC RBC Hgb Hct MCV MCH MCHC RDW Plt Count MPV Neut % (Auto) Lymph % (Auto) Alcorn % (Auto) Eos % (Auto) Baso % (Auto) Neut # Lymph # Alcorn # Eos # Baso # Sodium 133 Potassium 4.4 Chloride 101 Carbon Dioxide 24 Anion Gap 12 BUN 48 H Creatinine 5.4 H Est GFR ( Amer) 10 Est GFR (Non-Af Amer) 8 POC Glucose (mg/dL) 149 H 221 H Random Glucose 142 H Calcium 8.1 L Total Bilirubin 0.4 AST 19 ALT 38 Alkaline Phosphatase 100 Total Protein 6.9 Albumin 3.0 L Globulin 3.9 Albumin/Globulin Ratio 0.8 L Fingerstick Blood Sugar Results: 214 Critical Care Progress Note - Nutrition Nutrition: Nutrition Category Date Time Status Renal Diet [DIET] Diets 05/23/17 Dinner Active Assessment/Plan - Assessment and Plan (Free Text) Assessment: 67 year old s/p [employer] - code blue in HD w/acute encephalopathy, s/p Permacath insertion POD #3 Plan: Renal: Dr. Jett consulted, help appreciated Renal Failure now on HD. Patient had reaction to dialysis which caused her to syncopize. She was scheduled to get dialysis today and be monitored in ICU, but dialysis was delayed one day, per nephro. Patient already had successful dialysis treatment during ICU stay. Patient safe to transfer out of ICU, per Dr. Torres. Patient schedule for Dialysis tomorrow morning. hx of HTN Neuro: Dr. Devine consulted, help appreciated f/u brain MRI f/u neuro recs Plavix 75mg PO daily (hx of CVA) Cardio: Dr. Ledesma consulted, help appreciated Planning for cardiac cath tomorrow morning. hx of systolic CHF Coreg 3.125mg PO BID Crestor 10mg PO HS Endo: DM2 Lantus 10 units SC HS ISS Heme: hx of CVA hx of anemia (likely 2/2 chronic kidney disease) H/H - 8.7/28.5, continue to monitor Skin: Dr. Nunez consulted, help appreciated Diabetic foot ulcer Cefazolin 2gm IVPB MWF abx per ID blood cultures negative at 48 hours Transfer order placed to telemetry Case discussed with Dr. Kirit Johnson Dillon PGY1 <Emily Beth - Last Filed: 05/28/17 22:29> CCU Objective - Vital Signs / Intake & Output Vital Signs (Last 4 hours): Vital Signs Temp Pulse Resp BP BP Pulse Ox 05/28/17 21:39 79 12 146/67 05/28/17 20:39 97.6 F 80 14 142/72 05/28/17 20:03 87 12 135/71 100 05/28/17 20:00 87 13 98 05/28/17 19:37 84 16 144/79 100 05/28/17 19:33 82 12 153/81 H 100 05/28/17 19:25 88 14 153/81 H 05/28/17 19:10 150/90 05/28/17 19:03 84 9 L 165/83 H 100 05/28/17 19:00 92 H 11 L 100 05/28/17 18:57 71 21 150/90 100 05/28/17 18:42 86 13 159/100 H 100 05/28/17 18:40 168/98 H 05/28/17 18:38 70 14 168/98 H 100 Intake and Output (Last 8hrs): Intake & Output 05/28/17 05/28/17 05/28/17 06:59 14:59 22:59 Intake Total 50 50 200 Output Total 0 3600 Balance 50 50 -3400 Weight 296 lb 9 oz Intake: Oral 50 50 200 Output: Urine 0 0 Urine, Voided 0 0 Stool 0 Other 3600 Other: # Voids Urine, Voided 0 # Bowel Movements 0 0 - Medications Active Medications: Active Medications Generic Name Dose Route Start Last Admin Trade Name Balajiq PRN Reason Stop Dose Admin Acetaminophen 650 mg 05/28/17 14:20 Tylenol 325mg Tab PO Q6 PRN Pain, moderate (4-7) Aspirin 81 mg 05/28/17 10:00 05/28/17 10:07 Aspirin Chewable PO 81 mg DAILY [facility] Administration Calcium Acetate 667 mg 05/18/17 11:30 05/28/17 16:35 Phoslo PO 667 mg TIDAC DONALD Administration Carvedilol 3.125 mg 05/15/17 11:30 05/28/17 18:56 Coreg PO 3.125 mg BID DONALD Administration Clopidogrel Bisulfate 75 mg 05/29/17 10:00 Plavix PO DAILY [facility] Epoetin Etienne 4,000 unit 05/28/17 17:15 05/28/17 17:13 Procrit IV 4,000 unit TTS DONALD Administration Epoetin Etienne 10,000 unit 05/28/17 17:15 05/28/17 17:14 Procrit IV 10,000 unit TTS DONALD Administration Ergocalciferol 1 cap 06/04/17 10:00 Drisdol 50,000 Intl Units Cap PO Q7D DONALD Famotidine 20 mg 05/28/17 18:00 05/28/17 18:57 Pepcid PO 20 mg BID DONALD Administration Ferrous Gluconate 324 mg 05/14/17 14:00 05/28/17 18:56 Fergon PO 324 mg TID DONALD Administration Fluoxetine HCl 20 mg 05/29/17 10:00 Prozac PO DAILY DONALD Heparin Sodium (Porcine) 2,000 units 05/28/17 10:00 05/28/17 16:54 Heparin IVP 06/06/17 10:01 Not Given TTS DONALD Heparin Sodium (Porcine) 5,000 units 05/28/17 14:00 05/28/17 22:15 Heparin SC 5,000 units Q8 DONALD Administration Hydralazine HCl 25 mg 05/16/17 16:58 05/28/17 05:44 Apresoline PO 25 mg Q4 PRN Administration Other Hydralazine HCl 50 mg 05/21/17 11:00 05/28/17 18:56 Apresoline PO 50 mg BID DONALD Administration Cefazolin Sodium/Dextrose 2 gm in 50 mls @ 100 mls/hr 05/28/17 16:00 19:00 Ancef Iv 2 Gm Duplex IVPB 100 mls/hr TTS DONALD Administration Insulin Aspart 0 unit 05/19/17 12:30 05/28/17 22:24 Novolog SC Not Given ACHS [facility] Protocol Insulin Glargine 10 unit 05/13/17 22:00 05/28/17 22:16 Lantus SC 10 unit HS DONALD Administration Lactulose 20 gm 05/28/17 22:00 05/28/17 22:15 Enulose PO 20 gm HS DONALD Administration Rosuvastatin Calcium 10 mg 05/28/17 22:00 05/28/17 22:15 Crestor PO 10 mg HS DONALD Administration Sucralfate 1 gm 05/28/17 18:00 05/28/17 18:56 Carafate Tab PO 1 gm BID DONALD Administration Vitamin B Complex/Vit C/Folic Acid 1 tab 05/29/17 10:00 Nephro-Naren PO DAILY DONALD - Patient Studies Lab Studies: Microbiology Studies 05/25/17 13:30 Blood Culture - Preliminary Blood-Venous NO GROWTH AFTER 3 DAYS 05/25/17 14:00 Blood Culture - Preliminary Blood-Venous NO GROWTH AFTER 3 DAYS Lab Studies 05/28/17 05/28/17 05/28/17 Range/Units 21:11 16:26 11:08 WBC (4.8-10.8) K/uL RBC (3.80-5.20) Mil/uL Hgb (11.0-16.0) g/dL Hct (34.0-47.0) % MCV (81.0-99.0) fL MCH (27.0-31.0) pg MCHC (33.0-37.0) g/dL RDW (11.5-14.5) % Plt Count (130-400) K/uL MPV (7.2-11.7) fL Neut % (Auto) (50.0-75.0) % Lymph % (Auto) (20.0-40.0) % Alcorn % (Auto) (0.0-10.0) % Eos % (Auto) (0.0-4.0) % Baso % (Auto) (0.0-2.0) % Neut # (1.8-7.0) K/uL Lymph # (1.0-4.3) K/uL Alcorn # (0.0-0.8) K/uL Eos # (0.0-0.7) K/uL Baso # (0.0-0.2) K/uL PT (9.7-12.2) SECONDS INR APTT (21-34) SECONDS Sodium (132-148) mmol/L Potassium (3.6-5.2) mmol/L Chloride (98-107) mmol/L Carbon Dioxide (22-30) mmol/L Anion Gap (10-20) BUN (7-17) mg/dL Creatinine (0.7-1.2) mg/dL Est GFR ( Amer) Est GFR (Non-Af Amer) POC Glucose (mg/dL) 139 H 99 115 H (65-110) mg/dL Random Glucose (65-105) mg/dL Calcium (8.6-10.4) mg/dl Total Bilirubin (0.2-1.3) mg/dL AST (14-36) U/L ALT (9-52) U/L Alkaline Phosphatase (38-126) U/L Total Protein (6.3-8.3) g/dL Albumin (3.5-5.0) g/dL Globulin (2.2-3.9) gm/dL Albumin/Globulin Ratio (1.0-2.1) 05/28/17 05/28/17 05/28/17 Range/Units 07:18 06:43 06:43 WBC 6.2 (4.8-10.8) K/uL RBC 2.90 L (3.80-5.20) Mil/uL Hgb 8.6 L (11.0-16.0) g/dL Hct 27.1 L (34.0-47.0) % MCV 93.7 (81.0-99.0) fL MCH 29.6 (27.0-31.0) pg MCHC 31.5 L (33.0-37.0) g/dL RDW 19.0 H (11.5-14.5) % Plt Count 157 (130-400) K/uL MPV 9.3 (7.2-11.7) fL Neut % (Auto) 66.5 (50.0-75.0) % Lymph % (Auto) 15.2 L (20.0-40.0) % Alcorn % (Auto) 12.5 H (0.0-10.0) % Eos % (Auto) 5.1 H (0.0-4.0) % Baso % (Auto) 0.7 (0.0-2.0) % Neut # 4.1 (1.8-7.0) K/uL Lymph # 0.9 L (1.0-4.3) K/uL Alcorn # 0.8 (0.0-0.8) K/uL Eos # 0.3 (0.0-0.7) K/uL Baso # 0.0 (0.0-0.2) K/uL PT 13.5 H (9.7-12.2) SECONDS INR 1.2 APTT 40 H (21-34) SECONDS Sodium (132-148) mmol/L Potassium (3.6-5.2) mmol/L Chloride (98-107) mmol/L Carbon Dioxide (22-30) mmol/L Anion Gap (10-20) BUN (7-17) mg/dL Creatinine (0.7-1.2) mg/dL Est GFR ( Amer) Est GFR (Non-Af Amer) POC Glucose (mg/dL) 171 H (65-110) mg/dL Random Glucose (65-105) mg/dL Calcium (8.6-10.4) mg/dl Total Bilirubin (0.2-1.3) mg/dL AST (14-36) U/L ALT (9-52) U/L Alkaline Phosphatase (38-126) U/L Total Protein (6.3-8.3) g/dL Albumin (3.5-5.0) g/dL Globulin (2.2-3.9) gm/dL Albumin/Globulin Ratio (1.0-2.1) 05/28/17 Range/Units 06:36 WBC (4.8-10.8) K/uL RBC (3.80-5.20) Mil/uL Hgb (11.0-16.0) g/dL Hct (34.0-47.0) % MCV (81.0-99.0) fL MCH (27.0-31.0) pg MCHC (33.0-37.0) g/dL RDW (11.5-14.5) % Plt Count (130-400) K/uL MPV (7.2-11.7) fL Neut % (Auto) (50.0-75.0) % Lymph % (Auto) (20.0-40.0) % Alcorn % (Auto) (0.0-10.0) % Eos % (Auto) (0.0-4.0) % Baso % (Auto) (0.0-2.0) % Neut # (1.8-7.0) K/uL Lymph # (1.0-4.3) K/uL Alcorn # (0.0-0.8) K/uL Eos # (0.0-0.7) K/uL Baso # (0.0-0.2) K/uL PT (9.7-12.2) SECONDS INR APTT (21-34) SECONDS Sodium 136 (132-148) mmol/L Potassium 4.2 (3.6-5.2) mmol/L Chloride 102 (98-107) mmol/L Carbon Dioxide 25 (22-30) mmol/L Anion Gap 14 (10-20) BUN 51 H (7-17) mg/dL Creatinine 5.4 H (0.7-1.2) mg/dL Est GFR ( Amer) 10 Est GFR (Non-Af Amer) 8 POC Glucose (mg/dL) (65-110) mg/dL Random Glucose 113 H (65-105) mg/dL Calcium 8.2 L (8.6-10.4) mg/dl Total Bilirubin 0.6 (0.2-1.3) mg/dL AST 17 (14-36) U/L ALT 29 (9-52) U/L Alkaline Phosphatase 101 (38-126) U/L Total Protein 6.0 L (6.3-8.3) g/dL Albumin 3.0 L (3.5-5.0) g/dL Globulin 3.0 (2.2-3.9) gm/dL Albumin/Globulin Ratio 1.0 (1.0-2.1) Laboratory Results - last 24 hr 05/28/17 05/28/17 05/28/17 06:36 06:43 06:43 WBC 6.2 RBC 2.90 L Hgb 8.6 L Hct 27.1 L MCV 93.7 MCH 29.6 MCHC 31.5 L RDW 19.0 H Plt Count 157 MPV 9.3 Neut % (Auto) 66.5 Lymph % (Auto) 15.2 L Alcorn % (Auto) 12.5 H Eos % (Auto) 5.1 H Baso % (Auto) 0.7 Neut # 4.1 Lymph # 0.9 L Alcorn # 0.8 Eos # 0.3 Baso # 0.0 PT 13.5 H INR 1.2 APTT 40 H Sodium 136 Potassium 4.2 Chloride 102 Carbon Dioxide 25 Anion Gap 14 BUN 51 H Creatinine 5.4 H Est GFR ( Amer) 10 Est GFR (Non-Af Amer) 8 POC Glucose (mg/dL) Random Glucose 113 H Calcium 8.2 L Total Bilirubin 0.6 AST 17 ALT 29 Alkaline Phosphatase 101 Total Protein 6.0 L Albumin 3.0 L Globulin 3.0 Albumin/Globulin Ratio 1.0 05/28/17 05/28/17 05/28/17 07:18 11:08 16:26 WBC RBC Hgb Hct MCV MCH MCHC RDW Plt Count MPV Neut % (Auto) Lymph % (Auto) Alcorn % (Auto) Eos % (Auto) Baso % (Auto) Neut # Lymph # Alcorn # Eos # Baso # PT INR APTT Sodium Potassium Chloride Carbon Dioxide Anion Gap BUN Creatinine Est GFR ( Amer) Est GFR (Non-Af Amer) POC Glucose (mg/dL) 171 H 115 H 99 Random Glucose Calcium Total Bilirubin AST ALT Alkaline Phosphatase Total Protein Albumin Globulin Albumin/Globulin Ratio 05/28/17 21:11 WBC RBC Hgb Hct MCV MCH MCHC RDW Plt Count MPV Neut % (Auto) Lymph % (Auto) Alcorn % (Auto) Eos % (Auto) Baso % (Auto) Neut # Lymph # Alcorn # Eos # Baso # PT INR APTT Sodium Potassium Chloride Carbon Dioxide Anion Gap BUN Creatinine Est GFR ( Amer) Est GFR (Non-Af Amer) POC Glucose (mg/dL) 139 H Random Glucose Calcium Total Bilirubin AST ALT Alkaline Phosphatase Total Protein Albumin Globulin Albumin/Globulin Ratio Critical Care Progress Note - Nutrition Nutrition: Nutrition Category Date Time Status Diabetic [Consistent Carbohydrate] [DIET] Diets 05/28/17 Lunch Active Attending/Attestation - Attestation I have personally seen and examined this patient.: Yes I have fully participated in the care of the patient.: Yes I have reviewed all pertinent clinical information: Yes Notes (Text): 05/28/17 22:29 agree with note
--- NOTE | 2017-05-27 15:28 | CP.PCM.PN ---
Subjective - Date & Time of Evaluation Date of Evaluation: 05/27/17 Time of Evaluation: 15:24 - Subjective Subjective: Follow up Nephrology Consultation: Assessment: stable Acute Kidney Injury likely contrast induced nephropathy: now on HD since ? allergic reaction to dialyzer Non-healing ulcer on heel with celluliits Diabetic chronic Kidney Disease (E11.22) Hypertensive Chronic Kidney Disease (I12.9) Chronic Kidney Disease (N18.4) Stage 4 with 500 mg proteinuria (R80.9) possibly due to DM and or HTN Anemia (D64.9), Hyperphosphatemia (E83.39), HTN (I12.9) systolic CHF, Morbid obesity, PVD, depression Mild Hyperkalemia Plan No acute need for HD today. will plan for HD tomorrow with non-sulphone Glover Exeltra dialyzer. she tolerated last HD well on sat with this dialyzer. she can be transferred out of ICU from renal perspective. cardiology planning for cardiac cath 05/27/17. Further exposure to iodinated contrast IV may reduce the chances of spontaneous renal recovery but likely seems to be needed to facilitate diagnostic and therapeutic interventions for CAD, PVD. continue to monitor for renal function and I/O closely. Hypertension control with meds as ordered. continue with low dose coreg, hydralazine 50 mg bid. continue with her home dose epogen (hold if Hb>11) and phoslo continue with vit D and oral iron supplementation ID and vascular surgery following Dose meds/antibiotics for reduced GFR <10. Avoid fleets enema/magnesium based laxatives. Avoid nephrotoxins/NSAIDs Glycemic control Further work up/management as per primary team Thanks for allowing me to participate in care of your patient. Will follow patient with you. Please call if any Qs. d/w team Dr Juan Torres Office: [phone] HPI: Pt is a 67 y/o F with hx of diabetes Mellitus hypertension, CHF, chronic anemia, hyperphos, DVT on coumadin, drpression, obesity, dementia, CVA, CKD ? 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 staff helped in creole interpretation. ROS: She Denies chest pain, palpitation, shortness of breath. has urinary complaints as decreased urine output Physical Examination: General Appearance: Comfortable, in no acute respiratory distress, co-operative . obese Vitals reviewed and noted as below Lungs: Normal respiratory rate/effort. Breath sounds bilateral equal and clear Heart: Normal rate. s1s2 normal. No rub or gallop. Extremities: 1-2+ edema. No varicose veins. has chronic venous stasis changes. both feets in dressings. LUE swelling + Neurological: Patient is alert, awake and not oriented to person, place or time. ? has dementia. No focal deficit. Strength bilateral appropriate and equal Skin: Warm and dry. Normal turgor. No rash. Palpitation: Normal elasticity for age Abdomen: Abdomen is soft. Bowel sounds +. There is no abdominal tenderness, no guarding/rigidity no organomegaly. she is obese Psych: lack insight MSK: no joint tenderness or swelling. Digits and nails normal, no deformity : kidney or bladder not palpable Access: permacath Rt IJ Labs/imaging/EKG reviewed. Past medical history, past surgical history, family history, social history, allergy reviewed and noted as below Family hx: no hx of CKD. Rest non-contributory Objective - Vital Signs/Intake and Output Vital Signs (last 24 hours): Temp Pulse Resp BP Pulse Ox 98.2 F 72 13 155/83 H 100 05/27/17 12:00 05/27/17 15:01 05/27/17 15:01 05/27/17 15:01 05/27/17 15:01 Intake and Output: 05/27/17 05/27/17 06:59 18:59 Intake Total 120 900 Output Total 0 0 Balance 120 900 - Medications Medications: Current Medications Calcium Acetate (Phoslo) 667 mg PO TIDAC [facility] Last Admin: 05/27/17 09:15 Dose: 667 mg Carvedilol (Coreg) 3.125 mg PO BID [facility] Last Admin: 05/27/17 09:15 Dose: 3.125 mg Clopidogrel Bisulfate (Plavix) 75 mg PO DAILY [facility] Last Admin: 05/27/17 09:14 Dose: 75 mg Epoetin Etienne (Procrit) 10,000 unit SC MWF [facility] Last Admin: 05/22/17 12:30 Dose: 10,000 unit Ergocalciferol (Drisdol 50,000 Intl Units Cap) 1 cap PO Q7D [facility] Last Admin: 05/21/17 09:48 Dose: 1 cap Ferrous Gluconate (Fergon) 324 mg PO TID [facility] Last Admin: 05/27/17 09:15 Dose: 324 mg Fluoxetine HCl (Prozac) 20 mg PO DAILY [facility] Last Admin: 05/27/17 09:14 Dose: 20 mg Heparin Sodium (Porcine) (Heparin) 5,000 units SC Q8 [facility] Last Admin: 05/27/17 07:00 Dose: 5,000 units Heparin Sodium (Porcine) (Heparin) 2,000 units IVP TTS [facility] Stop: 06/06/17 10:01 Hydralazine HCl (Apresoline) 25 mg PO Q4 PRN PRN Reason: Other Hydralazine HCl (Apresoline) 50 mg PO BID [facility] Last Admin: 05/27/17 09:14 Dose: 50 mg Cefazolin Sodium/Dextrose (Ancef Iv 2 Gm Duplex) 2 gm in 50 mls @ 100 mls/hr IVPB MWF [facility] Last Admin: 05/27/17 09:16 Dose: 100 mls/hr Insulin Aspart (Novolog) 0 unit SC ACHS [facility] PRN Reason: Protocol Last Admin: 05/27/17 09:22 Dose: Not Given Insulin Glargine (Lantus) 10 unit SC HS [facility] Last Admin: 05/26/17 21:55 Dose: 10 unit Lactulose (Enulose) 20 gm PO HS [facility] Last Admin: 05/26/17 22:00 Dose: Not Given Pantoprazole Sodium (Protonix Ec Tab) 40 mg PO DAILY [facility] Last Admin: 05/27/17 09:15 Dose: 40 mg Rosuvastatin Calcium (Crestor) 10 mg PO HS [facility] Last Admin: 05/26/17 21:55 Dose: 10 mg Sucralfate (Carafate Tab) 1 gm PO BID [facility] Last Admin: 05/27/17 09:15 Dose: 1 gm Vitamin B Complex/Vit C/Folic Acid (Nephro-Naren) 1 tab PO DAILY [facility] Last Admin: 05/27/17 09:15 Dose: 1 tab - Labs Labs: 05/27/17 06:23 05/27/17 06:24 PT 13.8 SECONDS (9.7-12.2) H 05/21/17 07:30 INR 1.2 05/21/17 07:30 APTT 32 SECONDS (21-34) 05/21/17 07:30
--- NOTE | 2017-05-27 17:44 | CARD ---
APPROVED REPORT EKG Measurement Heart [id number] <Conclusion> Normal sinus rhythm Right bundle branch block Left anterior fascicular block Bifascicular block Abnormal ECG
[2017-05-27] MEDS: Epoetin Alfa 10,000 unit/ml Dialysis SC SCH ×2 (18:26→18:27)
--- NOTE | 2017-05-27 21:23 | CARD ---
APPROVED REPORT EXAM: LIMITED Two-dimensional and M-mode echocardiogram with Doppler and color Dopple WITH BUBBLE STUDY INDICATION CVA/TIA Mitral Valve E/A ratio0.0 TDI E/Lateral E'0.0E/Medial E'0.0 <Conclusion> Limited study No evidence of an intracardiac shunt with saline contrast
[2017-05-27] MEDS: (Lantus) Insulin Glargine, Recombinant SC SCH (22:18)
[2017-05-28 06:52] LABS: BASO % 0.7 % (0.0-2.0); EOS # 0.3 K/uL (0.0-0.7); EOS % 5.1 % (0.0-4.0); HEMATOCRIT 27.1 % (34.0-47.0); LYMPH # 0.9 K/uL (1.0-4.3); LYMPH % 15.2 % (20.0-40.0); MEAN CELL VOLUME 93.7 fL (81.0-99.0); MEAN CORPUSCULAR HEMOGLOBIN 29.6 pg (27.0-31.0); MEAN CORPUSCULAR HGB CONC 31.5 g/dL (33.0-37.0); MEAN PLATELET VOLUME 9.3 fL (7.2-11.7); MONO # 0.8 K/uL (0.0-0.8); MONO % 12.5 % (0.0-10.0); NRBC % 0.2 % (0.0-2.0); WHITE BLOOD COUNT 6.2 K/uL (4.8-10.8)
[2017-05-28 06:55] LABS: INR 1.2
[2017-05-28 06:58] LABS: BILIRUBIN,TOTAL 0.6 mg/dL (0.2-1.3); CALCIUM 8.2 mg/dl (8.6-10.4); POTASSIUM 4.2 mmol/L (3.6-5.2)
--- NOTE | 2017-05-28 07:34 | PN ---
DATE: 05/27/2017 SUBJECTIVE: The patient has chief complaint of weakness, fatigue, tiredness. The patient is getting dialysis today, supportive care. Maite Denis MD
[2017-05-28] MEDS: (Novolog) Insulin Aspart, Recombinant 100 u/ml 10 ml vial SC SCH ×4 (08:14→22:24)
--- NOTE | 2017-05-28 08:28 | CP.PCM.PN ---
Subjective - Date & Time of Evaluation Date of Evaluation: 05/28/17 Time of Evaluation: 08:26 - Subjective Subjective: Ms. Taveras was seen and examined at the bedside. She is able to verbalize her name and year, but still states place as [place]. She denies any headache, dizziness, weakness, nausea, or vomiting. She is able to follow simple commands. There was no untoward events overnight. Objective - Vital Signs/Intake and Output Vital Signs (last 24 hours): Temp Pulse Resp BP Pulse Ox 98.5 F 90 14 178/76 H 100 05/28/17 08:00 05/28/17 05:00 05/28/17 05:00 05/28/17 04:02 05/28/17 05:00 Intake and Output: 05/28/17 05/28/17 06:59 18:59 Intake Total 100 Balance 100 - Medications Medications: Current Medications Aspirin (Aspirin Chewable) 81 mg PO DAILY [facility] Calcium Acetate (Phoslo) 667 mg PO TIDAC [facility] Last Admin: 05/28/17 08:14 Dose: Not Given Carvedilol (Coreg) 3.125 mg PO BID [facility] Last Admin: 05/27/17 17:38 Dose: 3.125 mg Clopidogrel Bisulfate (Plavix) 75 mg PO DAILY [facility] Last Admin: 05/27/17 09:14 Dose: 75 mg Epoetin Etienne (Procrit) 10,000 unit SC MWF [facility] Last Admin: 05/27/17 18:27 Dose: 10,000 unit Ergocalciferol (Drisdol 50,000 Intl Units Cap) 1 cap PO Q7D [facility] Last Admin: 05/21/17 09:48 Dose: 1 cap Ferrous Gluconate (Fergon) 324 mg PO TID [facility] Last Admin: 05/27/17 17:38 Dose: 324 mg Fluoxetine HCl (Prozac) 20 mg PO DAILY [facility] Last Admin: 05/27/17 09:14 Dose: 20 mg Heparin Sodium (Porcine) (Heparin) 5,000 units SC Q8 [facility] Last Admin: 05/28/17 05:34 Dose: Not Given Heparin Sodium (Porcine) (Heparin) 2,000 units IVP TTS [facility] Stop: 06/06/17 10:01 Hydralazine HCl (Apresoline) 25 mg PO Q4 PRN PRN Reason: Other Last Admin: 05/28/17 05:44 Dose: 25 mg Hydralazine HCl (Apresoline) 50 mg PO BID [facility] Last Admin: 05/27/17 17:38 Dose: 50 mg Cefazolin Sodium/Dextrose (Ancef Iv 2 Gm Duplex) 2 gm in 50 mls @ 100 mls/hr IVPB MWF [facility] Last Admin: 05/27/17 09:16 Dose: 100 mls/hr Insulin Aspart (Novolog) 0 unit SC ACHS [facility] PRN Reason: Protocol Last Admin: 05/28/17 08:14 Dose: Not Given Insulin Glargine (Lantus) 10 unit SC [facility] Last Admin: 05/27/17 22:18 Dose: Not Given Lactulose (Enulose) 20 gm PO [facility] Last Admin: 05/27/17 21:54 Dose: Not Given Pantoprazole Sodium (Protonix Ec Tab) 40 mg PO DAILY [facility] Last Admin: 05/27/17 09:15 Dose: 40 mg Rosuvastatin Calcium (Crestor) 10 mg PO [facility] Last Admin: 05/27/17 22:15 Dose: 10 mg Sucralfate (Carafate Tab) 1 gm PO BID [facility] Last Admin: 05/27/17 17:39 Dose: 1 gm Vitamin B Complex/Vit C/Folic Acid (Nephro-Naren) 1 tab PO DAILY [facility] Last Admin: 05/27/17 09:15 Dose: 1 tab - Labs Labs: 05/28/17 06:43 05/28/17 06:36 PT 13.5 SECONDS (9.7-12.2) H 05/28/17 06:43 INR 1.2 05/28/17 06:43 APTT 40 SECONDS (21-34) H 05/28/17 06:43 - Constitutional Appears: No Acute Distress - Head Exam Head Exam: ATRAUMATIC - Neurological Exam Neurological Exam: Alert, Awake Neuro motor strength exam: Left Upper Extremity: 5, Right Upper Extremity: 5, Left Lower Extremity: 5, Right Lower Extremity: 5 Additional comments: She is able to answer dew questions appropriately such as her name and year, but remains confuse to place.She is able to follow simple commands such as eye field accommodation, finger to nose test, and strength test. Assessment and Plan (1) Encephalopathy acute Assessment & Plan: Case discussed with Dr. Devine, continue all current medical, physical, and occupational therapies. Recommends MRI of the brain without contrast, MRA of the head/neck without contrast and echocardiogram with bubble study. Status: Acute
[2017-05-28] MEDS ORDERED: Epoetin Alfa 10,000 unit/ml Dialysis IV SCH (10:00)
[2017-05-28] MEDS: Pantoprazole 40 mg EC Tab PO SCH (10:08)
[2017-05-28] MEDS: Multivitamin Vitamin B Complex (Nephro-Vite) Tab PO SCH (10:09)
[2017-05-28] MEDS: Ergocalciferol 50,000 Intl Units Cap PO SCH (10:09)
[2017-05-28] MEDS ORDERED: Iodixanol 320 MG/ML 200 ML BOTTLE IV ONE ×2 (12:16→12:50)
[2017-05-28] MEDS ORDERED: Midazolam 2 MG/2 ML VIAL ONE (12:16)
[2017-05-28] MEDS ORDERED: Nitroglycerin 50mg in D5W 50 MG/250 ML BOTTLE IV ONE (12:17)
--- NOTE | 2017-05-28 12:28 | CP.PCM.PN ---
Subjective - Date & Time of Evaluation Date of Evaluation: 05/28/17 Time of Evaluation: 12:23 - Subjective Subjective: Follow up Nephrology Consultation: Assessment: stable Acute Kidney Injury likely contrast induced nephropathy: now on HD since ? allergic reaction to dialyzer Non-healing ulcer on heel with celluliits Diabetic chronic Kidney Disease (E11.22) Hypertensive Chronic Kidney Disease (I12.9) Chronic Kidney Disease (N18.4) Stage 4 with 500 mg proteinuria (R80.9) possibly due to DM and or HTN Anemia (D64.9), Hyperphosphatemia (E83.39), HTN (I12.9) systolic CHF, Morbid obesity, PVD, depression Mild Hyperkalemia Plan will plan for HD today with non-polysulphone [place] Exeltra dialyzer. she tolerated last HD well on sat with this dialyzer. she can be transferred out of ICU from renal perspective. had d/w dialysis unit to arrange for special dialyzer for future HD cardiology planning for cardiac cath 05/28/17. Further exposure to iodinated contrast IV may reduce the chances of spontaneous renal recovery but likely seems to be needed to facilitate diagnostic and therapeutic interventions for CAD, PVD. continue to monitor for renal function and I/O closely. Hypertension control with meds as ordered. continue with coreg, hydralazine 50 mg bid. Increased epogen 20625 unit with HD and continue with phoslo continue with vit D and iron supplementation ID, cardiology and vascular surgery following Dose meds/antibiotics for reduced GFR <10. Avoid fleets enema/magnesium based laxatives. Avoid nephrotoxins/NSAIDs Glycemic control Further work up/management as per primary team Thanks for allowing me to participate in care of your patient. Will follow patient with you. Please call if any Qs. d/w team Dr Juan Torres Office: [phone] HPI: Pt is a 67 y/o F with hx of diabetes Mellitus hypertension, CHF, chronic anemia, hyperphos, DVT on coumadin, drpression, obesity, dementia, CVA, CKD ? stage and a nursing home resident at [facility] presented with complaints of non healing ulcer Rt heel. [employer] service used for creole interpretation. ROS: She Denies chest pain, palpitation, shortness of breath. has urinary complaints as decreased urine output. c/o pain Rt neck at permacat suture site Physical Examination: General Appearance: Comfortable, in no acute respiratory distress, co-operative . obese Vitals reviewed and noted as below Lungs: Normal respiratory rate/effort. Breath sounds bilateral equal and clear anteriorly Heart: Normal rate. s1s2 normal. No rub or gallop. Extremities: 1-2+ edema. No varicose veins. has chronic venous stasis changes. both feets in dressings. bilateral upper extremity swelling + Neurological: Patient is alert, awake and not oriented to person, place or time. ? has dementia. No focal deficit. Strength bilateral appropriate and equal Skin: Warm and dry. Normal turgor. No rash. Palpitation: Normal elasticity for age Abdomen: Abdomen is soft. Bowel sounds +. There is no abdominal tenderness, no guarding/rigidity no organomegaly. she is obese MSK: no joint tenderness or swelling. Digits and nails normal, no deformity : kidney or bladder not palpable Access: permacath Rt IJ Labs/imaging/EKG reviewed. Past medical history, past surgical history, family history, social history, allergy reviewed and noted as below Family hx: no hx of CKD. Rest non-contributory Objective - Vital Signs/Intake and Output Vital Signs (last 24 hours): Temp Pulse Resp BP Pulse Ox 97.6 F 69 12 135/78 100 05/28/17 12:00 05/28/17 11:00 05/28/17 11:00 05/28/17 10:07 05/28/17 11:00 Intake and Output: 05/28/17 05/28/17 06:59 18:59 Intake Total 100 50 Output Total 0 Balance 100 50 - Medications Medications: Current Medications Aspirin (Aspirin Chewable) 81 mg PO DAILY [facility] Last Admin: 05/28/17 10:07 Dose: 81 mg Calcium Acetate (Phoslo) 667 mg PO TIDAC [facility] Last Admin: 05/28/17 11:49 Dose: Not Given Carvedilol (Coreg) 3.125 mg PO BID [facility] Last Admin: 05/28/17 10:08 Dose: 3.125 mg Clopidogrel Bisulfate (Plavix) 75 mg PO DAILY [facility] Epoetin Etienne (Procrit) 14,000 unit IV TTS [facility] Ergocalciferol (Drisdol 50,000 Intl Units Cap) 1 cap PO Q7D [facility] Famotidine (Pepcid) 20 mg PO BID [facility] Ferrous Gluconate (Fergon) 324 mg PO TID [facility] Last Admin: 05/28/17 10:09 Dose: 324 mg Fluoxetine HCl (Prozac) 20 mg PO DAILY [facility] Heparin Sodium (Porcine) (Heparin) 2,000 units IVP TTS [facility] Stop: 06/06/17 10:01 Heparin Sodium (Porcine) (Heparin) 5,000 units SC Q8 [facility] Hydralazine HCl (Apresoline) 25 mg PO Q4 PRN PRN Reason: Other Last Admin: 05/28/17 05:44 Dose: 25 mg Hydralazine HCl (Apresoline) 50 mg PO BID [facility] Last Admin: 05/28/17 10:08 Dose: 50 mg Cefazolin Sodium/Dextrose (Ancef Iv 2 Gm Duplex) 2 gm in 50 mls @ 100 mls/hr IVPB MWF [facility] Last Admin: 05/27/17 09:16 Dose: 100 mls/hr Insulin Aspart (Novolog) 0 unit SC ACHS [facility] PRN Reason: Protocol Last Admin: 05/28/17 11:39 Dose: Not Given Insulin Glargine (Lantus) 10 unit SC HS [facility] Last Admin: 05/27/17 22:18 Dose: Not Given Lactulose (Enulose) 20 gm PO HS [facility] Rosuvastatin Calcium (Crestor) 10 mg PO HS [facility] Sucralfate (Carafate Tab) 1 gm PO BID [facility] Vitamin B Complex/Vit C/Folic Acid (Nephro-Naren) 1 tab PO DAILY [facility] - Labs Labs: 05/28/17 06:43 05/28/17 06:36 PT 13.5 SECONDS (9.7-12.2) H 05/28/17 06:43 INR 1.2 05/28/17 06:43 APTT 40 SECONDS (21-34) H 05/28/17 06:43
[2017-05-28] MEDS ORDERED: ceFAZolin IV 2 gm in Dextrose 2 GM/50 ML BAG IVPB SCH (14:20)
--- NOTE | 2017-05-28 14:30 | CP.PCM.PN ---
Subjective - Date & Time of Evaluation Date of Evaluation: 05/28/17 Time of Evaluation: 14:27 - Subjective Subjective: Patient s/p Cath 1. L Main: Patent 2. Mid LAD 30%. D1 70% 3. Distal L Cx 80%, OM2 99% 4. RCA Patent 5. EF: 25%, Global hypokinesis, EDP 30 Plan: PCI of L Cx after the leg surgery Moderate CAD and considered moderate rsik for coronary events for Leg surgery Objective - Vital Signs/Intake and Output Vital Signs (last 24 hours): Temp Pulse Resp BP Pulse Ox 97.6 F 69 12 135/78 100 05/28/17 12:00 05/28/17 11:00 05/28/17 11:00 05/28/17 10:07 05/28/17 11:00 Intake and Output: 05/28/17 05/28/17 06:59 18:59 Intake Total 100 50 Output Total 0 Balance 100 50 - Medications Medications: Current Medications Acetaminophen (Tylenol 325mg Tab) 650 mg PO Q6 PRN PRN Reason: Pain, moderate (4-7) Aspirin (Aspirin Chewable) 81 mg PO DAILY [facility] Last Admin: 05/28/17 10:07 Dose: 81 mg Calcium Acetate (Phoslo) 667 mg PO TIDAC [facility] Last Admin: 05/28/17 11:49 Dose: Not Given Carvedilol (Coreg) 3.125 mg PO BID [facility] Last Admin: 05/28/17 10:08 Dose: 3.125 mg Clopidogrel Bisulfate (Plavix) 75 mg PO DAILY [facility] Epoetin Etienne (Procrit) 14,000 unit IV TTS [facility] Ergocalciferol (Drisdol 50,000 Intl Units Cap) 1 cap PO Q7D [facility] Famotidine (Pepcid) 20 mg PO BID [facility] Ferrous Gluconate (Fergon) 324 mg PO TID [facility] Last Admin: 05/28/17 14:05 Dose: Not Given Fluoxetine HCl (Prozac) 20 mg PO DAILY [facility] Heparin Sodium (Porcine) (Heparin) 2,000 units IVP TTS [facility] Stop: 06/06/17 10:01 Heparin Sodium (Porcine) (Heparin) 5,000 units SC Q8 [facility] Hydralazine HCl (Apresoline) 25 mg PO Q4 PRN PRN Reason: Other Last Admin: 05/28/17 05:44 Dose: 25 mg Hydralazine HCl (Apresoline) 50 mg PO BID [facility] Last Admin: 05/28/17 10:08 Dose: 50 mg Cefazolin Sodium/Dextrose (Ancef Iv 2 Gm Duplex) 2 gm in 50 mls @ 100 mls/hr IVPB TTS [facility] Insulin Aspart (Novolog) 0 unit SC ACHS [facility] PRN Reason: Protocol Last Admin: 05/28/17 11:39 Dose: Not Given Insulin Glargine (Lantus) 10 unit SC HS [facility] Last Admin: 05/27/17 22:18 Dose: Not Given Lactulose (Enulose) 20 gm PO HS [facility] Rosuvastatin Calcium (Crestor) 10 mg PO HS [facility] Sucralfate (Carafate Tab) 1 gm PO BID [facility] Vitamin B Complex/Vit C/Folic Acid (Nephro-Naren) 1 tab PO DAILY [facility] - Labs Labs: 05/28/17 06:43 05/28/17 06:36 PT 13.5 SECONDS (9.7-12.2) H 05/28/17 06:43 INR 1.2 05/28/17 06:43 APTT 40 SECONDS (21-34) H 05/28/17 06:43
[2017-05-28] MEDS: EPOETIN ALFA 4,000 UNIT/ML ML Dialysis IV SCH (17:13)
[2017-05-28] MEDS: Epoetin Alfa 10,000 unit/ml Dialysis IV SCH (17:14)
[2017-05-28] MEDS: ceFAZolin IV 2 gm in Dextrose 2 GM/50 ML BAG IVPB SCH (19:00)
[2017-05-28] MEDS: (Lantus) Insulin Glargine, Recombinant SC SCH (22:16)
[2017-05-29] MEDS: (Novolog) Insulin Aspart, Recombinant 100 u/ml 10 ml vial SC SCH ×4 (07:54→22:31)
--- NOTE | 2017-05-29 08:02 | CP.PCM.PN ---
Subjective - Date & Time of Evaluation Date of Evaluation: 05/29/17 Time of Evaluation: 07:58 - Subjective Subjective: Ms. Taveras was seen and examined at the bedside. She is alert, but with episode of confusion to all spheres. She verbalizes that she is in [place]. Unable to verbalize time and person. She is able to follow commands such as field accommodation, finger to nose test, and strength test. She denies any headache, nausea, blurred vision, or vomiting. There was no untoward events overnight. Objective - Vital Signs/Intake and Output Vital Signs (last 24 hours): Temp Pulse Resp BP Pulse Ox 97.7 F 79 25 H 155/87 H 94 L 05/29/17 00:00 05/29/17 05:03 05/29/17 05:00 05/29/17 06:03 05/29/17 02:03 Intake and Output: 05/29/17 05/29/17 06:59 18:59 Intake Total 120 Output Total 200 Balance -80 - Medications Medications: Current Medications Acetaminophen (Tylenol 325mg Tab) 650 mg PO Q6 PRN PRN Reason: Pain, moderate (4-7) Aspirin (Aspirin Chewable) 81 mg PO DAILY [facility] Last Admin: 05/28/17 10:07 Dose: 81 mg Calcium Acetate (Phoslo) 667 mg PO TIDAC [facility] Last Admin: 05/29/17 07:56 Dose: 667 mg Carvedilol (Coreg) 3.125 mg PO BID [facility] Last Admin: 05/28/17 18:56 Dose: 3.125 mg Clopidogrel Bisulfate (Plavix) 75 mg PO DAILY [facility] Epoetin Etienne (Procrit) 4,000 unit IV TTS [facility] Last Admin: 05/28/17 17:13 Dose: 4,000 unit Epoetin Etienne (Procrit) 10,000 unit IV TTS [facility] Last Admin: 05/28/17 17:14 Dose: 10,000 unit Ergocalciferol (Drisdol 50,000 Intl Units Cap) 1 cap PO Q7D [facility] Famotidine (Pepcid) 20 mg PO BID [facility] Last Admin: 05/28/17 18:57 Dose: 20 mg Ferrous Gluconate (Fergon) 324 mg PO TID [facility] Last Admin: 05/28/17 18:56 Dose: 324 mg Fluoxetine HCl (Prozac) 20 mg PO DAILY [facility] Heparin Sodium (Porcine) (Heparin) 2,000 units IVP TTS [facility] Stop: 06/06/17 10:01 Last Admin: 05/28/17 16:54 Dose: Not Given Heparin Sodium (Porcine) (Heparin) 5,000 units SC Q8 [facility] Last Admin: 05/29/17 06:03 Dose: 5,000 units Hydralazine HCl (Apresoline) 25 mg PO Q4 PRN PRN Reason: Other Last Admin: 05/28/17 05:44 Dose: 25 mg Hydralazine HCl (Apresoline) 50 mg PO BID [facility] Last Admin: 05/28/17 18:56 Dose: 50 mg Cefazolin Sodium/Dextrose (Ancef Iv 2 Gm Duplex) 2 gm in 50 mls @ 100 mls/hr IVPB TTS [facility] Last Admin: 05/28/17 19:00 Dose: 100 mls/hr Insulin Aspart (Novolog) 0 unit SC ACHS [facility] PRN Reason: Protocol Last Admin: 05/29/17 07:54 Dose: Not Given Insulin Glargine (Lantus) 10 unit SC HS [facility] Last Admin: 05/28/17 22:16 Dose: 10 unit Lactulose (Enulose) 20 gm PO HS [facility] Last Admin: 05/28/17 22:15 Dose: 20 gm Rosuvastatin Calcium (Crestor) 10 mg PO HS [facility] Last Admin: 05/28/17 22:15 Dose: 10 mg Sucralfate (Carafate Tab) 1 gm PO BID [facility] Last Admin: 05/28/17 18:56 Dose: 1 gm Vitamin B Complex/Vit C/Folic Acid (Nephro-Naren) 1 tab PO DAILY [facility] - Labs Labs: 05/28/17 06:43 05/28/17 06:36 PT 13.5 SECONDS (9.7-12.2) H 05/28/17 06:43 INR 1.2 05/28/17 06:43 APTT 40 SECONDS (21-34) H 05/28/17 06:43 - Constitutional Appears: No Acute Distress - Head Exam Head Exam: ATRAUMATIC - Neurological Exam Neurological Exam: Awake Neuro motor strength exam: Left Upper Extremity: 5, Right Upper Extremity: 5, Left Lower Extremity: 5, Right Lower Extremity: 5 Additional comments: She still has episode of confusion, but able to answer few simple questions. She is able to follow commands such as field accommodation, finger to nose test , and strength test. Sensation remains intact. Assessment and Plan (1) Encephalopathy acute Assessment & Plan: Case discussed with Dr. Devine, continue all current medical, physical, and occupational therapies. Patient had cardiac catheterization yesterday and MRI was pending.Follow up MRI of the brain and MRA of the head and neck. Status: Acute
--- NOTE | 2017-05-29 08:07 | PN ---
SUBJECTIVE: Patient still in ICU for cardiac catheterization today by Dr. Ledesma, supportive care. Maite Denis MD
--- NOTE | 2017-05-29 08:58 | CP.PCM.PN ---
Subjective - Date & Time of Evaluation Date of Evaluation: 05/29/17 Time of Evaluation: 10:00 - Subjective Subjective: Dr. Denis note: Patient seen and examined in room. She has no new complaints of pain and is not in any distress. Objective - Vital Signs/Intake and Output Vital Signs (last 24 hours): Temp Pulse Resp BP Pulse Ox 97.9 F 88 18 134/80 98 05/29/17 08:00 05/29/17 08:00 05/29/17 08:00 05/29/17 08:00 05/29/17 08:00 Intake and Output: 05/29/17 05/29/17 06:59 18:59 Intake Total 120 100 Output Total 200 0 Balance -80 100 - Medications Medications: Current Medications Acetaminophen (Tylenol 325mg Tab) 650 mg PO Q6 PRN PRN Reason: Pain, moderate (4-7) Aspirin (Aspirin Chewable) 81 mg PO DAILY [facility] Last Admin: 05/28/17 10:07 Dose: 81 mg Calcium Acetate (Phoslo) 667 mg PO TIDAC [facility] Last Admin: 05/29/17 07:56 Dose: 667 mg Carvedilol (Coreg) 3.125 mg PO BID [facility] Last Admin: 05/28/17 18:56 Dose: 3.125 mg Clopidogrel Bisulfate (Plavix) 75 mg PO DAILY [facility] Epoetin Etienne (Procrit) 4,000 unit IV TTS [facility] Last Admin: 05/28/17 17:13 Dose: 4,000 unit Epoetin Etienne (Procrit) 10,000 unit IV TTS [facility] Last Admin: 05/28/17 17:14 Dose: 10,000 unit Ergocalciferol (Drisdol 50,000 Intl Units Cap) 1 cap PO Q7D [facility] Famotidine (Pepcid) 20 mg PO BID [facility] Last Admin: 05/28/17 18:57 Dose: 20 mg Ferrous Gluconate (Fergon) 324 mg PO TID [facility] Last Admin: 05/28/17 18:56 Dose: 324 mg Fluoxetine HCl (Prozac) 20 mg PO DAILY [facility] Heparin Sodium (Porcine) (Heparin) 2,000 units IVP TTS [facility] Stop: 06/06/17 10:01 Last Admin: 05/28/17 16:54 Dose: Not Given Heparin Sodium (Porcine) (Heparin) 5,000 units SC Q8 [facility] Last Admin: 05/29/17 06:03 Dose: 5,000 units Hydralazine HCl (Apresoline) 25 mg PO Q4 PRN PRN Reason: Other Last Admin: 05/28/17 05:44 Dose: 25 mg Hydralazine HCl (Apresoline) 50 mg PO BID [facility] Last Admin: 05/28/17 18:56 Dose: 50 mg Cefazolin Sodium/Dextrose (Ancef Iv 2 Gm Duplex) 2 gm in 50 mls @ 100 mls/hr IVPB TTS [facility] Last Admin: 05/28/17 19:00 Dose: 100 mls/hr Insulin Aspart (Novolog) 0 unit SC ACHS [facility] PRN Reason: Protocol Last Admin: 05/29/17 07:54 Dose: Not Given Insulin Glargine (Lantus) 10 unit SC HS [facility] Last Admin: 05/28/17 22:16 Dose: 10 unit Lactulose (Enulose) 20 gm PO HS [facility] Last Admin: 05/28/17 22:15 Dose: 20 gm Rosuvastatin Calcium (Crestor) 10 mg PO HS [facility] Last Admin: 05/28/17 22:15 Dose: 10 mg Sucralfate (Carafate Tab) 1 gm PO BID [facility] Last Admin: 05/28/17 18:56 Dose: 1 gm Vitamin B Complex/Vit C/Folic Acid (Nephro-Naren) 1 tab PO DAILY [facility] - Labs Labs: 05/28/17 06:43 05/28/17 06:36 PT 13.5 SECONDS (9.7-12.2) H 05/28/17 06:43 INR 1.2 05/28/17 06:43 APTT 40 SECONDS (21-34) H 05/28/17 06:43 - Constitutional Appears: Non-toxic, No Acute Distress - Respiratory Exam Respiratory Exam: Clear to Ausculation Bilateral. absent: Rhonchi, Wheezes - Cardiovascular Exam Cardiovascular Exam: REGULAR RHYTHM, RRR, +S1, +S2. absent: Gallop, Rubs - GI/Abdominal Exam GI & Abdominal Exam: Soft, Normal Bowel Sounds. absent: Tenderness - Extremities Exam Extremities Exam: absent: Normal Inspection Additional comments: swelling - Back Exam Back Exam: NORMAL INSPECTION - Psychiatric Exam Psychiatric exam: Normal Affect, Normal Mood - Skin Skin Exam: Normal Color, Warm Assessment and Plan (1) PVD (peripheral vascular disease) Assessment & Plan: Patient should go for angio with Dr. Tovar again for possible arthoplasty, on Aspirin and Plavix for now. Status: Acute (2) Diabetic infection of right foot Assessment & Plan: IV ancef 2gram post dialysis. Status: Acute (3) Acute on chronic renal failure Assessment & Plan: Patient has a permacath in for dialysis, nephrology is onboard. Continue with dialysis, will need to find out if patient needs AV fistula. Status: Acute (4) Encephalopathy acute Assessment & Plan: Seems to be improving, MRI/MRA today, neurology onboard. Laculose 20 gm daily. Status: Acute (5) CAD (coronary artery disease) Assessment & Plan: Patient went for Cath with Dr. Ledesma please see his note, she will need PCI which can be done after her leg surgery with Dr. Ledesma. Aspirin, plavix, and Cretor 10mg. Status: Acute (6) Systolic CHF Assessment & Plan: on Beta kam, will need to follow up with Dr. Ledesma as far medical management. per report from cath, she has a LV EF of 25%. Status: Chronic (7) Anemia Assessment & Plan: Procrit 1000 units and also PO iron. Status: Chronic (8) Diabetes Assessment & Plan: sliding scale and accu checks with hypoglycemia protocol, Lantus 20 units daily HS. Status: Chronic (9) HTN (hypertension) Assessment & Plan: Coreg 3.125gm bid, hydralazine 25mg q4 prn, and also 50mg bid, Status: Acute (10) Depression Assessment & Plan: prozac 20mg daily Status: Chronic (11) Prophylactic measure Assessment & Plan: pepcid 20mg bid, carafacte, heparin 5000 units q8h, tylenol for pain. Status: Acute
[2017-05-29] MEDS: Multivitamin Vitamin B Complex (Nephro-Vite) Tab PO SCH (09:34)
--- NOTE | 2017-05-29 15:59 | CP.PCM.PN ---
Subjective - Date & Time of Evaluation Date of Evaluation: 05/29/17 Time of Evaluation: 15:57 - Subjective Subjective: Follow up Nephrology Consultation: Assessment: stable Acute Kidney Injury likely contrast induced nephropathy: now on HD since ? allergic reaction to dialyzer Non-healing ulcer on heel with celluliits Diabetic chronic Kidney Disease (E11.22) Hypertensive Chronic Kidney Disease (I12.9) Chronic Kidney Disease (N18.4) Stage 4 with 500 mg proteinuria (R80.9) possibly due to DM and or HTN Anemia (D64.9), Hyperphosphatemia (E83.39), HTN (I12.9) systolic CHF, Morbid obesity, PVD, depression, CAD Mild Hyperkalemia Plan will plan for HD tomorrow with non-polysulphone Glover Exeltra dialyzer. she tolerated last HD well with this dialyzer. she can be transferred out of ICU from renal perspective. had d/w dialysis unit to arrange for special dialyzer for future HD check labs with HD as much possible continue to monitor for renal recovery and I/O closely. Hypertension control with meds as ordered. continue with coreg, hydralazine 50 mg bid. Increased epogen 21090 unit with HD and continue with phoslo continue with vit D and iron supplementation ID, cardiology and vascular surgery following Dose meds/antibiotics for reduced GFR <10. Avoid fleets enema/magnesium based laxatives. Avoid nephrotoxins/NSAIDs Glycemic control Further work up/management as per primary team Thanks for allowing me to participate in care of your patient. Will follow patient with you. Please call if any Qs. d/w team Dr Juan Torres Office: [phone] HPI: Pt is a 67 y/o F with hx of diabetes Mellitus hypertension, CHF, chronic anemia, hyperphos, DVT on coumadin, drpression, obesity, dementia, CVA, CKD ? stage and a care home resident at [facility] presented with complaints of non healing ulcer Rt heel. [employer] service used for creole interpretation. ROS: She Denies chest pain, palpitation, shortness of breath. has urinary complaints as decreased urine output. c/o pain Rt neck at permacath suture site Physical Examination: General Appearance: Comfortable, in no acute respiratory distress, co-operative . obese Vitals reviewed and noted as below Lungs: Normal respiratory rate/effort. Breath sounds bilateral equal and clear anteriorly Heart: Normal rate. s1s2 normal. No rub or gallop. Extremities: 1-2+ edema. No varicose veins. has chronic venous stasis changes. both feets in dressings. bilateral upper extremity swelling + Neurological: Patient is alert, awake and not oriented to person, place or time. ? has dementia. No focal deficit. Strength bilateral appropriate and equal Skin: Warm and dry. Normal turgor. No rash. Palpitation: Normal elasticity for age Abdomen: Abdomen is soft. Bowel sounds +. There is no abdominal tenderness, no guarding/rigidity no organomegaly. she is obese MSK: no joint tenderness or swelling. Digits and nails normal, no deformity : kidney or bladder not palpable Access: permacath Rt IJ Labs/imaging/EKG reviewed. Past medical history, past surgical history, family history, social history, allergy reviewed and noted as below Family hx: no hx of CKD. Rest non-contributory Objective - Vital Signs/Intake and Output Vital Signs (last 24 hours): Temp Pulse Resp BP Pulse Ox 98.4 F 86 18 143/72 100 05/29/17 12:00 05/29/17 12:00 05/29/17 12:00 05/29/17 12:00 05/29/17 12:00 Intake and Output: 05/29/17 05/29/17 06:59 18:59 Intake Total 120 200 Output Total 200 0 Balance -80 200 - Medications Medications: Current Medications Acetaminophen (Tylenol 325mg Tab) 650 mg PO Q6 PRN PRN Reason: Pain, moderate (4-7) Aspirin (Aspirin Chewable) 81 mg PO DAILY [facility] Last Admin: 05/29/17 09:32 Dose: 81 mg Calcium Acetate (Phoslo) 667 mg PO TIDAC [facility] Last Admin: 05/29/17 11:31 Dose: 667 mg Carvedilol (Coreg) 3.125 mg PO BID [facility] Last Admin: 05/29/17 09:33 Dose: 3.125 mg Clopidogrel Bisulfate (Plavix) 75 mg PO DAILY [facility] Last Admin: 05/29/17 09:34 Dose: 75 mg Epoetin Etienne (Procrit) 4,000 unit IV TTS [facility] Last Admin: 05/28/17 17:13 Dose: 4,000 unit Epoetin Etienne (Procrit) 10,000 unit IV TTS [facility] Last Admin: 05/28/17 17:14 Dose: 10,000 unit Ergocalciferol (Drisdol 50,000 Intl Units Cap) 1 cap PO Q7D [facility] Famotidine (Pepcid) 20 mg PO BID [facility] Last Admin: 05/29/17 09:34 Dose: 20 mg Ferrous Gluconate (Fergon) 324 mg PO TID [facility] Last Admin: 05/29/17 13:33 Dose: 324 mg Fluoxetine HCl (Prozac) 20 mg PO DAILY [facility] Last Admin: 05/29/17 09:35 Dose: 20 mg Heparin Sodium (Porcine) (Heparin) 2,000 units IVP TTS [facility] Stop: 06/06/17 10:01 Last Admin: 05/28/17 16:54 Dose: Not Given Heparin Sodium (Porcine) (Heparin) 5,000 units SC Q8 [facility] Last Admin: 05/29/17 13:35 Dose: 5,000 units Hydralazine HCl (Apresoline) 25 mg PO Q4 PRN PRN Reason: Other Last Admin: 05/28/17 05:44 Dose: 25 mg Hydralazine HCl (Apresoline) 50 mg PO BID [facility] Last Admin: 05/29/17 09:32 Dose: 50 mg Cefazolin Sodium/Dextrose (Ancef Iv 2 Gm Duplex) 2 gm in 50 mls @ 100 mls/hr IVPB TTS [facility] Last Admin: 05/28/17 19:00 Dose: 100 mls/hr Insulin Aspart (Novolog) 0 unit SC ACHS [facility] PRN Reason: Protocol Last Admin: 05/29/17 11:30 Dose: Not Given Insulin Glargine (Lantus) 10 unit SC HS [facility] Last Admin: 05/28/17 22:16 Dose: 10 unit Lactulose (Enulose) 20 gm PO HS [facility] Last Admin: 05/28/17 22:15 Dose: 20 gm Rosuvastatin Calcium (Crestor) 10 mg PO HS [facility] Last Admin: 05/28/17 22:15 Dose: 10 mg Sucralfate (Carafate Tab) 1 gm PO BID [facility] Last Admin: 05/29/17 09:33 Dose: 1 gm Vitamin B Complex/Vit C/Folic Acid (Nephro-Naren) 1 tab PO DAILY [facility] Last Admin: 05/29/17 09:34 Dose: 1 tab - Labs Labs: 05/28/17 06:43 05/28/17 06:36 PT 13.5 SECONDS (9.7-12.2) H 05/28/17 06:43 INR 1.2 05/28/17 06:43 APTT 40 SECONDS (21-34) H 05/28/17 06:43
--- NOTE | 2017-05-29 16:02 | CP.PCM.PN ---
Subjective - Date & Time of Evaluation Date of Evaluation: 05/29/17 Time of Evaluation: 09:00 - Subjective Subjective: EVENTS NOTED IV RX IN PROGRESS ORDERS WRITTEN Objective - Vital Signs/Intake and Output Vital Signs (last 24 hours): Temp Pulse Resp BP Pulse Ox 98.4 F 86 18 143/72 100 05/29/17 12:00 05/29/17 12:00 05/29/17 12:00 05/29/17 12:00 05/29/17 12:00 Intake and Output: 05/29/17 05/29/17 06:59 18:59 Intake Total 120 200 Output Total 200 0 Balance -80 200 - Medications Medications: Current Medications Acetaminophen (Tylenol 325mg Tab) 650 mg PO Q6 PRN PRN Reason: Pain, moderate (4-7) Aspirin (Aspirin Chewable) 81 mg PO DAILY [facility] Last Admin: 05/29/17 09:32 Dose: 81 mg Calcium Acetate (Phoslo) 667 mg PO TIDAC [facility] Last Admin: 05/29/17 11:31 Dose: 667 mg Carvedilol (Coreg) 3.125 mg PO BID [facility] Last Admin: 05/29/17 09:33 Dose: 3.125 mg Clopidogrel Bisulfate (Plavix) 75 mg PO DAILY [facility] Last Admin: 05/29/17 09:34 Dose: 75 mg Epoetin Etienne (Procrit) 4,000 unit IV TTS [facility] Last Admin: 05/28/17 17:13 Dose: 4,000 unit Epoetin Etienne (Procrit) 10,000 unit IV TTS [facility] Last Admin: 05/28/17 17:14 Dose: 10,000 unit Ergocalciferol (Drisdol 50,000 Intl Units Cap) 1 cap PO Q7D [facility] Famotidine (Pepcid) 20 mg PO BID [facility] Last Admin: 05/29/17 09:34 Dose: 20 mg Ferrous Gluconate (Fergon) 324 mg PO TID [facility] Last Admin: 05/29/17 13:33 Dose: 324 mg Fluoxetine HCl (Prozac) 20 mg PO DAILY [facility] Last Admin: 05/29/17 09:35 Dose: 20 mg Heparin Sodium (Porcine) (Heparin) 2,000 units IVP TTS [facility] Stop: 06/06/17 10:01 Last Admin: 05/28/17 16:54 Dose: Not Given Heparin Sodium (Porcine) (Heparin) 5,000 units SC Q8 [facility] Last Admin: 05/29/17 13:35 Dose: 5,000 units Hydralazine HCl (Apresoline) 25 mg PO Q4 PRN PRN Reason: Other Last Admin: 05/28/17 05:44 Dose: 25 mg Hydralazine HCl (Apresoline) 50 mg PO BID [facility] Last Admin: 05/29/17 09:32 Dose: 50 mg Cefazolin Sodium/Dextrose (Ancef Iv 2 Gm Duplex) 2 gm in 50 mls @ 100 mls/hr IVPB TTS [facility] Last Admin: 05/28/17 19:00 Dose: 100 mls/hr Insulin Aspart (Novolog) 0 unit SC ACHS [facility] PRN Reason: Protocol Last Admin: 05/29/17 11:30 Dose: Not Given Insulin Glargine (Lantus) 10 unit SC HS [facility] Last Admin: 05/28/17 22:16 Dose: 10 unit Lactulose (Enulose) 20 gm PO HS [facility] Last Admin: 05/28/17 22:15 Dose: 20 gm Rosuvastatin Calcium (Crestor) 10 mg PO HS [facility] Last Admin: 05/28/17 22:15 Dose: 10 mg Sucralfate (Carafate Tab) 1 gm PO BID [facility] Last Admin: 05/29/17 09:33 Dose: 1 gm Vitamin B Complex/Vit C/Folic Acid (Nephro-Naren) 1 tab PO DAILY [facility] Last Admin: 05/29/17 09:34 Dose: 1 tab - Labs Labs: 05/28/17 06:43 05/28/17 06:36 PT 13.5 SECONDS (9.7-12.2) H 05/28/17 06:43 INR 1.2 05/28/17 06:43 APTT 40 SECONDS (21-34) H 05/28/17 06:43 - Constitutional Appears: Non-toxic, Confused, Cachectic, Chronically Ill - Head Exam Head Exam: NORMOCEPHALIC - Eye Exam Eye Exam: absent: Scleral icterus - ENT Exam ENT Exam: Mucous Membranes Dry - Neck Exam Neck Exam: absent: Lymphadenopathy - Respiratory Exam Respiratory Exam: Decreased Breath Sounds - Cardiovascular Exam Cardiovascular Exam: REGULAR RHYTHM - GI/Abdominal Exam GI & Abdominal Exam: Distended, Soft - Rectal Exam Rectal Exam: Deferred - Exam Exam: NORMAL INSPECTION - Extremities Exam Extremities Exam: absent: Pedal Edema - Back Exam Back Exam: absent: CVA tenderness (L), CVA tenderness (R) Assessment and Plan (1) Acute on chronic renal failure Status: Acute (2) Dehydration Status: Acute (3) Diabetic infection of right foot Status: Acute (4) Anemia Status: Acute (5) Chronic heel ulcer Status: Acute
[2017-05-29] MEDS ORDERED: Dextrose 50% SYRINGE Inj (50 ml) IV PRN (16:53)
[2017-05-29] MEDS: (Lantus) Insulin Glargine, Recombinant SC SCH (22:00)
[2017-05-30 06:34] LABS: BASO % 0.6 % (0.0-2.0); EOS # 0.3 K/uL (0.0-0.7); EOS % 3.9 % (0.0-4.0); HEMATOCRIT 26.6 % (34.0-47.0); LYMPH # 0.9 K/uL (1.0-4.3); LYMPH % 12.9 % (20.0-40.0); MEAN CELL VOLUME 93.3 fL (81.0-99.0); MEAN CORPUSCULAR HEMOGLOBIN 29.6 pg (27.0-31.0); MEAN CORPUSCULAR HGB CONC 31.7 g/dL (33.0-37.0); MEAN PLATELET VOLUME 9.2 fL (7.2-11.7); MONO % 15.4 % (0.0-10.0); NRBC % 0.3 % (0.0-2.0); RED CELL DISTRIBUTION WIDTH 18.8 % (11.5-14.5); WHITE BLOOD COUNT 6.6 K/uL (4.8-10.8)
[2017-05-30 07:03] LABS: BILIRUBIN,TOTAL 0.6 mg/dL (0.2-1.3); MAGNESIUM 1.9 mg/dL (1.6-2.3); TOTAL PROTEIN 5.9 g/dL (6.3-8.3)
[2017-05-30] MEDS: (Novolog) Insulin Aspart, Recombinant 100 u/ml 10 ml vial SC SCH ×5 (07:33→21:49)
[2017-05-30] MEDS: ceFAZolin IV 2 gm in Dextrose 2 GM/50 ML BAG IVPB SCH (09:23)
[2017-05-30] MEDS: Multivitamin Vitamin B Complex (Nephro-Vite) Tab PO SCH (09:26)
[2017-05-30] MEDS: EPOETIN ALFA 4,000 UNIT/ML ML Dialysis IV SCH (11:10)
[2017-05-30] MEDS: Epoetin Alfa 10,000 unit/ml Dialysis IV SCH (11:11)
--- NOTE | 2017-05-30 16:33 | CP.PCM.PN ---
Subjective - Date & Time of Evaluation Date of Evaluation: 05/30/17 Time of Evaluation: 16:32 - Subjective Subjective: Follow up Nephrology Consultation: Assessment: stable Acute Kidney Injury likely contrast induced nephropathy: now on HD since ? severe allergic reaction to polysulphone dialyzer Non-healing ulcer on heel with celluliits Diabetic chronic Kidney Disease (E11.22) Hypertensive Chronic Kidney Disease (I12.9) Chronic Kidney Disease (N18.4) Stage 4 with 500 mg proteinuria (R80.9) possibly due to DM and or HTN Anemia (D64.9), Hyperphosphatemia (E83.39), HTN (I12.9) systolic CHF, Morbid obesity, PVD, depression, CAD Mild Hyperkalemia Plan plan for HD today with non-polysulphone Glover Exeltra dialyzer. she tolerating HD well with this dialyzer. check labs with HD as much possible continue to monitor for renal recovery and I/O closely. Hypertension control with meds as ordered. continue with coreg, hydralazine 50 mg bid. Increased epogen 02100 unit with HD and continue with phoslo continue with vit D and iron supplementation ID, cardiology and vascular surgery following Dose meds/antibiotics for reduced GFR <10. Avoid fleets enema/magnesium based laxatives. Avoid nephrotoxins/NSAIDs Glycemic control Further work up/management as per primary team Thanks for allowing me to participate in care of your patient. Will follow patient with you. Please call if any Qs. d/w team Dr Juan Torres Office: [phone] HPI: Pt is a 67 y/o F with hx of diabetes Mellitus hypertension, CHF, chronic anemia, hyperphos, DVT on coumadin, drpression, obesity, dementia, CVA, CKD ? 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 [employer] service used for creole interpretation. ROS: She Denies chest pain, palpitation, shortness of breath. has urinary complaints as decreased urine output. c/o pain Rt neck at permacath suture site but better Physical Examination: General Appearance: Comfortable, in no acute respiratory distress, co-operative . obese Vitals reviewed and noted as below Lungs: Normal respiratory rate/effort. Breath sounds bilateral equal and clear anteriorly Heart: Normal rate. s1s2 normal. No rub or gallop. Extremities: 1-2+ edema. No varicose veins. has chronic venous stasis changes. both feets in dressings. bilateral upper extremity swelling + Neurological: Patient is alert, awake and not oriented to person, place or time. ? has dementia. No focal deficit. Strength bilateral appropriate and equal Skin: Warm and dry. Normal turgor. No rash. Palpitation: Normal elasticity for age Abdomen: Abdomen is soft. Bowel sounds +. There is no abdominal tenderness, no guarding/rigidity no organomegaly. she is obese MSK: no joint tenderness or swelling. Digits and nails normal, no deformity : kidney or bladder not palpable Access: permacath Rt IJ Labs/imaging/EKG reviewed. Past medical history, past surgical history, family history, social history, allergy reviewed and noted as below Family hx: no hx of CKD. Rest non-contributory Objective - Vital Signs/Intake and Output Vital Signs (last 24 hours): Temp Pulse Resp BP Pulse Ox 97.5 F L 63 14 143/76 100 05/30/17 10:30 05/30/17 10:30 05/30/17 13:00 05/30/17 13:00 05/30/17 13:00 Intake and Output: 05/30/17 05/30/17 06:59 18:59 Intake Total 250 Output Total 0 Balance 250 - Medications Medications: Current Medications Acetaminophen (Tylenol 325mg Tab) 650 mg PO Q6 PRN PRN Reason: Pain, moderate (4-7) Aspirin (Aspirin Chewable) 81 mg PO DAILY [facility] Last Admin: 05/30/17 09:24 Dose: 81 mg Calcium Acetate (Phoslo) 667 mg PO TIDAC [facility] Last Admin: 05/30/17 12:30 Dose: 667 mg Carvedilol (Coreg) 3.125 mg PO BID [facility] Last Admin: 05/30/17 09:25 Dose: 3.125 mg Clopidogrel Bisulfate (Plavix) 75 mg PO DAILY [facility] Last Admin: 05/30/17 09:27 Dose: 75 mg Dextrose (Dextrose 50% Inj) 0 ml IV STAT PRN; Protocol PRN Reason: Hypoglycemia Protocol Dextrose (Glutose 15) 0 gm PO ONCE PRN; Protocol PRN Reason: Hypoglycemia Protocol Epoetin Etienne (Procrit) 4,000 unit IV TTS [facility] Last Admin: 05/30/17 11:10 Dose: 4,000 unit Epoetin Etienne (Procrit) 10,000 unit IV TTS [facility] Last Admin: 05/30/17 11:11 Dose: 10,000 unit Ergocalciferol (Drisdol 50,000 Intl Units Cap) 1 cap PO Q7D [facility] Famotidine (Pepcid) 20 mg PO BID [facility] Last Admin: 05/30/17 09:27 Dose: 20 mg Ferrous Gluconate (Fergon) 324 mg PO TID [facility] Last Admin: 05/30/17 15:14 Dose: 324 mg Fluoxetine HCl (Prozac) 20 mg PO DAILY [facility] Last Admin: 05/30/17 09:27 Dose: 20 mg Heparin Sodium (Porcine) (Heparin) 2,000 units IVP [facility] Stop: 06/06/17 10:01 Last Admin: 05/30/17 10:30 Dose: 2,000 units Heparin Sodium (Porcine) (Heparin) 5,000 units SC Q8 [facility] Last Admin: 05/30/17 15:14 Dose: 5,000 units Hydralazine HCl (Apresoline) 25 mg PO Q4 PRN PRN Reason: Other Last Admin: 05/28/17 05:44 Dose: 25 mg Hydralazine HCl (Apresoline) 50 mg PO BID [facility] Last Admin: 05/30/17 09:24 Dose: 50 mg Cefazolin Sodium/Dextrose (Ancef Iv 2 Gm Duplex) 2 gm in 50 mls @ 100 mls/hr IVPB [facility] Last Admin: 05/30/17 09:23 Dose: 100 mls/hr Dextrose (Dextrose 5% In Water 1000 Ml) 1,000 mls @ 0 mls/hr IV .Q0M PRN; Protocol; Per Protocol PRN Reason: Hypoglycemia Protocol Insulin Aspart (Novolog) 0 unit SC [facility] PRN Reason: Protocol Last Admin: 05/30/17 12:18 Dose: Not Given Insulin Glargine (Lantus) 10 unit SC [facility] Last Admin: 05/29/17 22:00 Dose: 10 unit Lactulose (Enulose) 20 gm PO [facility] Last Admin: 05/29/17 22:33 Dose: 20 gm Rosuvastatin Calcium (Crestor) 10 mg PO [facility] Last Admin: 05/29/17 22:33 Dose: 10 mg Sucralfate (Carafate Tab) 1 gm PO BID [facility] Last Admin: 05/30/17 09:25 Dose: 1 gm Vitamin B Complex/Vit C/Folic Acid (Nephro-Naren) 1 tab PO DAILY [facility] Last Admin: 05/30/17 09:26 Dose: 1 tab - Labs Labs: 05/30/17 06:16 05/30/17 06:16 PT 13.5 SECONDS (9.7-12.2) H 05/28/17 06:43 INR 1.2 05/28/17 06:43 APTT 40 SECONDS (21-34) H 05/28/17 06:43
[2017-05-30] MEDS: (Lantus) Insulin Glargine, Recombinant SC SCH (21:49)
--- NOTE | 2017-05-30 23:43 | CP.PCM.PN ---
Subjective - Date & Time of Evaluation Date of Evaluation: 05/27/17 Time of Evaluation: 08:25 - Subjective Subjective: Patient seen and evaluated For Cath tomorrow At present patient denies chest pain and dyspnea Physical examination - Constitutional Appears: Non-toxic, No Acute Distress - Head Exam Head Exam: NORMAL INSPECTION - Eye Exam Eye Exam: EOMI - ENT Exam ENT Exam: Mucous Membranes Moist - Respiratory Exam Respiratory Exam: Clear to Ausculation Bilateral, NORMAL BREATHING PATTERN. absent: Rales, Rhonchi, Wheezes - Cardiovascular Exam Cardiovascular Exam: REGULAR RHYTHM, +S1, +S2. absent: Gallop, Rubs, Murmur - GI/Abdominal Exam GI & Abdominal Exam: Soft, Normal Bowel Sounds. absent: Tenderness - Extremities Exam Extremities Exam: Pedal Edema Additional comments: pitting edema and venous stasis changes to mid calf b/l negative Shiloh's Warm toes b/l Right heel wrapped in clean bandage odorous feet - Neurological Exam Neurological Exam: Alert, Awake, Oriented x3 - Psychiatric Exam Psychiatric exam: Normal Affect, Normal Mood - Skin Skin Exam: Normal Color, Warm Objective - Vital Signs/Intake and Output Vital Signs (last 24 hours): Temp Pulse Resp BP Pulse Ox 98 F 71 18 143/76 100 05/30/17 20:00 05/30/17 23:00 05/30/17 23:00 05/30/17 22:44 05/30/17 23:00 Intake and Output: 05/30/17 05/31/17 18:59 06:59 Intake Total 520 100 Output Total 0 0 Balance 520 100 - Medications Medications: Current Medications Acetaminophen (Tylenol 325mg Tab) 650 mg PO Q6 PRN PRN Reason: Pain, moderate (4-7) Aspirin (Aspirin Chewable) 81 mg PO DAILY [facility] Last Admin: 05/30/17 09:24 Dose: 81 mg Calcium Acetate (Phoslo) 667 mg PO TIDAC [facility] Last Admin: 05/30/17 17:07 Dose: 667 mg Carvedilol (Coreg) 3.125 mg PO BID [facility] Last Admin: 05/30/17 17:38 Dose: 3.125 mg Clopidogrel Bisulfate (Plavix) 75 mg PO DAILY [facility] Last Admin: 05/30/17 09:27 Dose: 75 mg Dextrose (Dextrose 50% Inj) 0 ml IV STAT PRN; Protocol PRN Reason: Hypoglycemia Protocol Dextrose (Glutose 15) 0 gm PO ONCE PRN; Protocol PRN Reason: Hypoglycemia Protocol Epoetin Etienne (Procrit) 4,000 unit IV [facility] Last Admin: 05/30/17 11:10 Dose: 4,000 unit Epoetin Etienne (Procrit) 10,000 unit IV TTS [facility] Last Admin: 05/30/17 11:11 Dose: 10,000 unit Ergocalciferol (Drisdol 50,000 Intl Units Cap) 1 cap PO Q7D [facility] Famotidine (Pepcid) 20 mg PO BID [facility] Last Admin: 05/30/17 17:38 Dose: 20 mg Ferrous Gluconate (Fergon) 324 mg PO TID [facility] Last Admin: 05/30/17 17:38 Dose: 324 mg Fluoxetine HCl (Prozac) 20 mg PO DAILY [facility] Last Admin: 05/30/17 09:27 Dose: 20 mg Heparin Sodium (Porcine) (Heparin) 2,000 units IVP [facility] Stop: 06/06/17 10:01 Last Admin: 05/30/17 10:30 Dose: 2,000 units Heparin Sodium (Porcine) (Heparin) 5,000 units SC Q8 [facility] Last Admin: 05/30/17 21:51 Dose: 5,000 units Hydralazine HCl (Apresoline) 25 mg PO Q4 PRN PRN Reason: Other Last Admin: 05/28/17 05:44 Dose: 25 mg Hydralazine HCl (Apresoline) 50 mg PO BID [facility] Last Admin: 05/30/17 17:38 Dose: 50 mg Cefazolin Sodium/Dextrose (Ancef Iv 2 Gm Duplex) 2 gm in 50 mls @ 100 mls/hr IVPB [facility] Last Admin: 05/30/17 09:23 Dose: 100 mls/hr Dextrose (Dextrose 5% In Water 1000 Ml) 1,000 mls @ 0 mls/hr IV .Q0M PRN; Protocol; Per Protocol PRN Reason: Hypoglycemia Protocol Insulin Aspart (Novolog) 0 unit SC ACHS [facility] PRN Reason: Protocol Last Admin: 05/30/17 21:49 Dose: 3 unit Insulin Glargine (Lantus) 10 unit SC [facility] Last Admin: 05/30/17 21:49 Dose: 10 unit Lactulose (Enulose) 20 gm PO [facility] Last Admin: 05/30/17 21:50 Dose: 20 gm Rosuvastatin Calcium (Crestor) 10 mg PO HS [facility] Last Admin: 05/30/17 21:50 Dose: 10 mg Sucralfate (Carafate Tab) 1 gm PO BID [facility] Last Admin: 05/30/17 17:38 Dose: 1 gm Vitamin B Complex/Vit C/Folic Acid (Nephro-Naren) 1 tab PO DAILY [facility] Last Admin: 05/30/17 09:26 Dose: 1 tab - Labs Labs: 05/30/17 06:16 05/30/17 06:16 PT 13.5 SECONDS (9.7-12.2) H 05/28/17 06:43 INR 1.2 05/28/17 06:43 APTT 40 SECONDS (21-34) H 05/28/17 06:43 Assessment and Plan - Assessment and Plan (Free Text) Assessment: (1) PVD (peripheral vascular disease) Assessment & Plan: Dr. Romero on case Status: Acute (2) Diabetic infection of right foot Assessment & Plan: IV ancef 2gram post dialysis. Status: Acute (3) Acute on chronic renal failure Assessment & Plan: Patient has a permacath in for dialysis, nephrology is onboard. Continue with dialysis, will need to find out if patient needs AV fistula. Status: Acute (4) Encephalopathy acute Assessment & Plan: Seems to be improving, MRI/MRA today, neurology onboard. Laculose 20 gm daily. Status: Acute (5) CAD (coronary artery disease) Assessment & Plan: Aspirin, plavix, and Cretor 10mg. Status: Acute (6) Systolic CHF Assessment & Plan: on Beta kam, will need to follow up with Dr. Ledesma as far medical management. per report from cath, she has a LV EF of 25%. Status: Chronic (7) Anemia Assessment & Plan: Procrit 1000 units and also PO iron. Status: Chronic (8) Diabetes Assessment & Plan: sliding scale and accu checks with hypoglycemia protocol, Lantus 20 units daily HS. Status: Chronic (9) HTN (hypertension) Assessment & Plan: Coreg 3.125gm bid, hydralazine 25mg q4 prn, and also 50mg bid, Status: Acute (10) Depression Assessment & Plan: prozac 20mg daily Status: Chronic (11) Prophylactic measure Assessment & Plan: pepcid 20mg bid, carafacte, heparin 5000 units q8h, tylenol for pain. Status: Acute
--- NOTE | 2017-05-30 23:44 | CP.PCM.PN ---
Subjective - Date & Time of Evaluation Date of Evaluation: 05/29/17 Time of Evaluation: 09:05 - Subjective Subjective: Patient seen and evaluated Moderate CAD PCI after the surgery Physical examination - Constitutional Appears: Non-toxic, No Acute Distress - Head Exam Head Exam: NORMAL INSPECTION - Eye Exam Eye Exam: EOMI - ENT Exam ENT Exam: Mucous Membranes Moist - Respiratory Exam Respiratory Exam: Clear to Ausculation Bilateral, NORMAL BREATHING PATTERN. absent: Rales, Rhonchi, Wheezes - Cardiovascular Exam Cardiovascular Exam: REGULAR RHYTHM, +S1, +S2. absent: Gallop, Rubs, Murmur - GI/Abdominal Exam GI & Abdominal Exam: Soft, Normal Bowel Sounds. absent: Tenderness - Extremities Exam Extremities Exam: Pedal Edema Additional comments: pitting edema and venous stasis changes to mid calf b/l negative Shiloh's Warm toes b/l Right heel wrapped in clean bandage odorous feet - Neurological Exam Neurological Exam: Alert, Awake, Oriented x3 - Psychiatric Exam Psychiatric exam: Normal Affect, Normal Mood - Skin Skin Exam: Normal Color, Warm Objective - Vital Signs/Intake and Output Vital Signs (last 24 hours): Temp Pulse Resp BP Pulse Ox 98 F 71 18 143/76 100 05/30/17 20:00 05/30/17 23:00 05/30/17 23:00 05/30/17 22:44 05/30/17 23:00 Intake and Output: 05/30/17 05/31/17 18:59 06:59 Intake Total 520 100 Output Total 0 0 Balance 520 100 - Medications Medications: Current Medications Acetaminophen (Tylenol 325mg Tab) 650 mg PO Q6 PRN PRN Reason: Pain, moderate (4-7) Aspirin (Aspirin Chewable) 81 mg PO DAILY [facility] Last Admin: 05/30/17 09:24 Dose: 81 mg Calcium Acetate (Phoslo) 667 mg PO TIDAC [facility] Last Admin: 05/30/17 17:07 Dose: 667 mg Carvedilol (Coreg) 3.125 mg PO BID [facility] Last Admin: 05/30/17 17:38 Dose: 3.125 mg Clopidogrel Bisulfate (Plavix) 75 mg PO DAILY [facility] Last Admin: 05/30/17 09:27 Dose: 75 mg Dextrose (Dextrose 50% Inj) 0 ml IV STAT PRN; Protocol PRN Reason: Hypoglycemia Protocol Dextrose (Glutose 15) 0 gm PO ONCE PRN; Protocol PRN Reason: Hypoglycemia Protocol Epoetin Etienne (Procrit) 4,000 unit IV [facility] Last Admin: 05/30/17 11:10 Dose: 4,000 unit Epoetin Etienne (Procrit) 10,000 unit IV [facility] Last Admin: 05/30/17 11:11 Dose: 10,000 unit Ergocalciferol (Drisdol 50,000 Intl Units Cap) 1 cap PO Q7D [facility] Famotidine (Pepcid) 20 mg PO BID [facility] Last Admin: 05/30/17 17:38 Dose: 20 mg Ferrous Gluconate (Fergon) 324 mg PO TID [facility] Last Admin: 05/30/17 17:38 Dose: 324 mg Fluoxetine HCl (Prozac) 20 mg PO DAILY [facility] Last Admin: 05/30/17 09:27 Dose: 20 mg Heparin Sodium (Porcine) (Heparin) 2,000 units IVP [facility] Stop: 06/06/17 10:01 Last Admin: 05/30/17 10:30 Dose: 2,000 units Heparin Sodium (Porcine) (Heparin) 5,000 units SC Q8 [facility] Last Admin: 05/30/17 21:51 Dose: 5,000 units Hydralazine HCl (Apresoline) 25 mg PO Q4 PRN PRN Reason: Other Last Admin: 05/28/17 05:44 Dose: 25 mg Hydralazine HCl (Apresoline) 50 mg PO BID [facility] Last Admin: 05/30/17 17:38 Dose: 50 mg Cefazolin Sodium/Dextrose (Ancef Iv 2 Gm Duplex) 2 gm in 50 mls @ 100 mls/hr IVPB [facility] Last Admin: 05/30/17 09:23 Dose: 100 mls/hr Dextrose (Dextrose 5% In Water 1000 Ml) 1,000 mls @ 0 mls/hr IV .Q0M PRN; Protocol; Per Protocol PRN Reason: Hypoglycemia Protocol Insulin Aspart (Novolog) 0 unit SC ACHS [facility] PRN Reason: Protocol Last Admin: 05/30/17 21:49 Dose: 3 unit Insulin Glargine (Lantus) 10 unit SC [facility] Last Admin: 05/30/17 21:49 Dose: 10 unit Lactulose (Enulose) 20 gm PO [facility] Last Admin: 05/30/17 21:50 Dose: 20 gm Rosuvastatin Calcium (Crestor) 10 mg PO HS [facility] Last Admin: 05/30/17 21:50 Dose: 10 mg Sucralfate (Carafate Tab) 1 gm PO BID [facility] Last Admin: 05/30/17 17:38 Dose: 1 gm Vitamin B Complex/Vit C/Folic Acid (Nephro-Naren) 1 tab PO DAILY [facility] Last Admin: 05/30/17 09:26 Dose: 1 tab - Labs Labs: 05/30/17 06:16 05/30/17 06:16 PT 13.5 SECONDS (9.7-12.2) H 05/28/17 06:43 INR 1.2 05/28/17 06:43 APTT 40 SECONDS (21-34) H 05/28/17 06:43 Assessment and Plan - Assessment and Plan (Free Text) Assessment: 1, 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 DM 2 3. HTN 4. PAD 5. Hyperlipidemia 6. CKD on HD Recommend LifeVest L Cx PCI after AV fistula
--- NOTE | 2017-05-30 23:45 | CP.PCM.PN ---
Subjective - Date & Time of Evaluation Date of Evaluation: 05/30/17 Time of Evaluation: 10:20 - Subjective Subjective: Patient seen and evaluated No cardiac complaints Awaiting surgery Moderate Cardiac risk Physical examination - Constitutional Appears: Non-toxic, No Acute Distress - Head Exam Head Exam: NORMAL INSPECTION - Eye Exam Eye Exam: EOMI - ENT Exam ENT Exam: Mucous Membranes Moist - Respiratory Exam Respiratory Exam: Clear to Ausculation Bilateral, NORMAL BREATHING PATTERN. absent: Rales, Rhonchi, Wheezes - Cardiovascular Exam Cardiovascular Exam: REGULAR RHYTHM, +S1, +S2. absent: Gallop, Rubs, Murmur - GI/Abdominal Exam GI & Abdominal Exam: Soft, Normal Bowel Sounds. absent: Tenderness - Extremities Exam Extremities Exam: Pedal Edema Additional comments: pitting edema and venous stasis changes to mid calf b/l negative Shiloh's Warm toes b/l Right heel wrapped in clean bandage odorous feet - Neurological Exam Neurological Exam: Alert, Awake, Oriented x3 - Psychiatric Exam Psychiatric exam: Normal Affect, Normal Mood - Skin Skin Exam: Normal Color, Warm Objective - Vital Signs/Intake and Output Vital Signs (last 24 hours): Temp Pulse Resp BP Pulse Ox 98 F 71 18 143/76 100 05/30/17 20:00 05/30/17 23:00 05/30/17 23:00 05/30/17 22:44 05/30/17 23:00 Intake and Output: 05/30/17 05/31/17 18:59 06:59 Intake Total 520 100 Output Total 0 0 Balance 520 100 - Medications Medications: Current Medications Acetaminophen (Tylenol 325mg Tab) 650 mg PO Q6 PRN PRN Reason: Pain, moderate (4-7) Aspirin (Aspirin Chewable) 81 mg PO DAILY [facility] Last Admin: 05/30/17 09:24 Dose: 81 mg Calcium Acetate (Phoslo) 667 mg PO TIDAC [facility] Last Admin: 05/30/17 17:07 Dose: 667 mg Carvedilol (Coreg) 3.125 mg PO BID [facility] Last Admin: 05/30/17 17:38 Dose: 3.125 mg Clopidogrel Bisulfate (Plavix) 75 mg PO DAILY [facility] Last Admin: 05/30/17 09:27 Dose: 75 mg Dextrose (Dextrose 50% Inj) 0 ml IV STAT PRN; Protocol PRN Reason: Hypoglycemia Protocol Dextrose (Glutose 15) 0 gm PO ONCE PRN; Protocol PRN Reason: Hypoglycemia Protocol Epoetin Etienne (Procrit) 4,000 unit IV [facility] Last Admin: 05/30/17 11:10 Dose: 4,000 unit Epoetin Etienne (Procrit) 10,000 unit IV TTS [facility] Last Admin: 05/30/17 11:11 Dose: 10,000 unit Ergocalciferol (Drisdol 50,000 Intl Units Cap) 1 cap PO Q7D [facility] Famotidine (Pepcid) 20 mg PO BID [facility] Last Admin: 05/30/17 17:38 Dose: 20 mg Ferrous Gluconate (Fergon) 324 mg PO TID [facility] Last Admin: 05/30/17 17:38 Dose: 324 mg Fluoxetine HCl (Prozac) 20 mg PO DAILY [facility] Last Admin: 05/30/17 09:27 Dose: 20 mg Heparin Sodium (Porcine) (Heparin) 2,000 units IVP [facility] Stop: 06/06/17 10:01 Last Admin: 05/30/17 10:30 Dose: 2,000 units Heparin Sodium (Porcine) (Heparin) 5,000 units SC Q8 [facility] Last Admin: 05/30/17 21:51 Dose: 5,000 units Hydralazine HCl (Apresoline) 25 mg PO Q4 PRN PRN Reason: Other Last Admin: 05/28/17 05:44 Dose: 25 mg Hydralazine HCl (Apresoline) 50 mg PO BID [facility] Last Admin: 05/30/17 17:38 Dose: 50 mg Cefazolin Sodium/Dextrose (Ancef Iv 2 Gm Duplex) 2 gm in 50 mls @ 100 mls/hr IVPB [facility] Last Admin: 05/30/17 09:23 Dose: 100 mls/hr Dextrose (Dextrose 5% In Water 1000 Ml) 1,000 mls @ 0 mls/hr IV .Q0M PRN; Protocol; Per Protocol PRN Reason: Hypoglycemia Protocol Insulin Aspart (Novolog) 0 unit SC ACHS [facility] PRN Reason: Protocol Last Admin: 05/30/17 21:49 Dose: 3 unit Insulin Glargine (Lantus) 10 unit SC [facility] Last Admin: 05/30/17 21:49 Dose: 10 unit Lactulose (Enulose) 20 gm PO [facility] Last Admin: 05/30/17 21:50 Dose: 20 gm Rosuvastatin Calcium (Crestor) 10 mg PO HS [facility] Last Admin: 05/30/17 21:50 Dose: 10 mg Sucralfate (Carafate Tab) 1 gm PO BID [facility] Last Admin: 05/30/17 17:38 Dose: 1 gm Vitamin B Complex/Vit C/Folic Acid (Nephro-Naren) 1 tab PO DAILY [facility] Last Admin: 05/30/17 09:26 Dose: 1 tab - Labs Labs: 05/30/17 06:16 05/30/17 06:16 PT 13.5 SECONDS (9.7-12.2) H 05/28/17 06:43 INR 1.2 05/28/17 06:43 APTT 40 SECONDS (21-34) H 05/28/17 06:43 Assessment and Plan - Assessment and Plan (Free Text) Assessment: (1) PVD (peripheral vascular disease) Assessment & Plan: Dr. Romero on case Status: Acute (2) Diabetic infection of right foot Assessment & Plan: IV ancef 2gram post dialysis. Status: Acute (3) Acute on chronic renal failure Assessment & Plan: Patient has a permacath in for dialysis, nephrology is onboard. Continue with dialysis, will need to find out if patient needs AV fistula. Status: Acute (4) Encephalopathy acute Assessment & Plan: Seems to be improving, MRI/MRA today, neurology onboard. Laculose 20 gm daily. Status: Acute (5) CAD (coronary artery disease) Assessment & Plan: PCI as out patient Aspirin, plavix, and Cretor 10mg. Status: Acute (6) Systolic CHF Assessment & Plan: on Beta kam, will need to follow up with Dr. Ledesma as far medical management. per report from cath, she has a LV EF of 25%. Status: Chronic (7) Anemia Assessment & Plan: Procrit 1000 units and also PO iron. Status: Chronic (8) Diabetes Assessment & Plan: sliding scale and accu checks with hypoglycemia protocol, Lantus 20 units daily HS. Status: Chronic (9) HTN (hypertension) Assessment & Plan: Coreg 3.125gm bid, hydralazine 25mg q4 prn, and also 50mg bid, Status: Acute (10) Depression Assessment & Plan: prozac 20mg daily Status: Chronic (11) Prophylactic measure Assessment & Plan: pepcid 20mg bid, carafacte, heparin 5000 units q8h, tylenol for pain. Status: Acute
--- NOTE | 2017-05-31 06:55 | CP.PCM.PN ---
Subjective - Date & Time of Evaluation Date of Evaluation: 05/31/17 Time of Evaluation: 06:52 - Subjective Subjective: Ms. Taveras was seen and examined at the bedside. She is alert, oriented to person and time, but unable to verbalize place. She mainly speaks creole, but understands Belarusian. She denies any headache, dizziness, lightheadedness, nausea , or vomiting. She is able to follow simple commands such as field accommodation , finger to nose, and strength test. There was no untoward events overnight. Objective - Vital Signs/Intake and Output Vital Signs (last 24 hours): Temp Pulse Resp BP Pulse Ox 98.2 F 77 10 L 117/61 100 05/31/17 04:00 05/31/17 04:00 05/31/17 03:44 05/31/17 03:44 05/31/17 03:44 Intake and Output: 05/30/17 05/31/17 18:59 06:59 Intake Total 520 100 Output Total 0 0 Balance 520 100 - Medications Medications: Current Medications Acetaminophen (Tylenol 325mg Tab) 650 mg PO Q6 PRN PRN Reason: Pain, moderate (4-7) Aspirin (Aspirin Chewable) 81 mg PO DAILY [facility] Last Admin: 05/30/17 09:24 Dose: 81 mg Calcium Acetate (Phoslo) 667 mg PO TIDAC [facility] Last Admin: 05/30/17 17:07 Dose: 667 mg Carvedilol (Coreg) 3.125 mg PO BID [facility] Last Admin: 05/30/17 17:38 Dose: 3.125 mg Clopidogrel Bisulfate (Plavix) 75 mg PO DAILY [facility] Last Admin: 05/30/17 09:27 Dose: 75 mg Dextrose (Dextrose 50% Inj) 0 ml IV STAT PRN; Protocol PRN Reason: Hypoglycemia Protocol Dextrose (Glutose 15) 0 gm PO ONCE PRN; Protocol PRN Reason: Hypoglycemia Protocol Epoetin Etienne (Procrit) 4,000 unit IV TTS [facility] Last Admin: 05/30/17 11:10 Dose: 4,000 unit Epoetin Etienne (Procrit) 10,000 unit IV TTS [facility] Last Admin: 05/30/17 11:11 Dose: 10,000 unit Ergocalciferol (Drisdol 50,000 Intl Units Cap) 1 cap PO Q7D [facility] Famotidine (Pepcid) 20 mg PO BID [facility] Last Admin: 05/30/17 17:38 Dose: 20 mg Ferrous Gluconate (Fergon) 324 mg PO TID [facility] Last Admin: 05/30/17 17:38 Dose: 324 mg Fluoxetine HCl (Prozac) 20 mg PO DAILY [facility] Last Admin: 05/30/17 09:27 Dose: 20 mg Heparin Sodium (Porcine) (Heparin) 2,000 units IVP [facility] Stop: 06/06/17 10:01 Last Admin: 05/30/17 10:30 Dose: 2,000 units Heparin Sodium (Porcine) (Heparin) 5,000 units SC Q8 [facility] Last Admin: 05/30/17 21:51 Dose: 5,000 units Hydralazine HCl (Apresoline) 25 mg PO Q4 PRN PRN Reason: Other Last Admin: 05/28/17 05:44 Dose: 25 mg Hydralazine HCl (Apresoline) 50 mg PO BID [facility] Last Admin: 05/30/17 17:38 Dose: 50 mg Cefazolin Sodium/Dextrose (Ancef Iv 2 Gm Duplex) 2 gm in 50 mls @ 100 mls/hr IVPB TTS [facility] Last Admin: 05/30/17 09:23 Dose: 100 mls/hr Dextrose (Dextrose 5% In Water 1000 Ml) 1,000 mls @ 0 mls/hr IV .Q0M PRN; Protocol; Per Protocol PRN Reason: Hypoglycemia Protocol Insulin Aspart (Novolog) 0 unit SC ACHS [facility] PRN Reason: Protocol Last Admin: 05/30/17 21:49 Dose: 3 unit Insulin Glargine (Lantus) 10 unit SC HS [facility] Last Admin: 05/30/17 21:49 Dose: 10 unit Lactulose (Enulose) 20 gm PO HS [facility] Last Admin: 05/30/17 21:50 Dose: 20 gm Rosuvastatin Calcium (Crestor) 10 mg PO HS [facility] Last Admin: 05/30/17 21:50 Dose: 10 mg Sucralfate (Carafate Tab) 1 gm PO BID [facility] Last Admin: 05/30/17 17:38 Dose: 1 gm Vitamin B Complex/Vit C/Folic Acid (Nephro-Naren) 1 tab PO DAILY [facility] Last Admin: 05/30/17 09:26 Dose: 1 tab - Labs Labs: 05/30/17 06:16 05/30/17 06:16 PT 13.5 SECONDS (9.7-12.2) H 05/28/17 06:43 INR 1.2 05/28/17 06:43 APTT 40 SECONDS (21-34) H 05/28/17 06:43 - Constitutional Appears: No Acute Distress - Head Exam Head Exam: ATRAUMATIC - Extremities Exam Additional comments: +3 edema on bilateral upper and lower extremities. - Neurological Exam Neurological Exam: Alert, Awake Neuro motor strength exam: Left Upper Extremity: 5, Right Upper Extremity: 5, Left Lower Extremity: 5, Right Lower Extremity: 5 Additional comments: Neurological unchanged from previous examination. Sensation remains intact. Assessment and Plan (1) Encephalopathy acute Assessment & Plan: Case discussed with Dr. Devine, continue all current medical, physical, and occupational therapies. Status: Acute
--- NOTE | 2017-05-31 10:49 | CP.PCM.PN ---
Subjective - Date & Time of Evaluation Date of Evaluation: 05/31/17 Time of Evaluation: 10:50 - Subjective Subjective: Dr. Denis Note; PGY2 Medicine Note This patient was seen and examined with attending physician; the patient was unwilling to talk to us with sheet covered over head; unable to perform subjective history taking portion of exam. Objective - Vital Signs/Intake and Output Vital Signs (last 24 hours): Temp Pulse Resp BP Pulse Ox 98.2 F 83 13 138/69 100 05/31/17 04:00 05/31/17 07:00 05/31/17 07:00 05/31/17 06:44 05/31/17 07:00 Intake and Output: 05/31/17 05/31/17 06:59 18:59 Intake Total 100 Output Total 0 Balance 100 - Medications Medications: Current Medications Acetaminophen (Tylenol 325mg Tab) 650 mg PO Q6 PRN PRN Reason: Pain, moderate (4-7) Aspirin (Aspirin Chewable) 81 mg PO DAILY [facility] Last Admin: 05/30/17 09:24 Dose: 81 mg Calcium Acetate (Phoslo) 667 mg PO TIDAC [facility] Last Admin: 05/30/17 17:07 Dose: 667 mg Carvedilol (Coreg) 3.125 mg PO BID [facility] Last Admin: 05/30/17 17:38 Dose: 3.125 mg Clopidogrel Bisulfate (Plavix) 75 mg PO DAILY [facility] Last Admin: 05/30/17 09:27 Dose: 75 mg Dextrose (Dextrose 50% Inj) 0 ml IV STAT PRN; Protocol PRN Reason: Hypoglycemia Protocol Dextrose (Glutose 15) 0 gm PO ONCE PRN; Protocol PRN Reason: Hypoglycemia Protocol Epoetin Etienne (Procrit) 4,000 unit IV TTS [facility] Last Admin: 05/30/17 11:10 Dose: 4,000 unit Epoetin Etienne (Procrit) 10,000 unit IV TTS [facility] Last Admin: 05/30/17 11:11 Dose: 10,000 unit Ergocalciferol (Drisdol 50,000 Intl Units Cap) 1 cap PO Q7D [facility] Famotidine (Pepcid) 20 mg PO BID [facility] Last Admin: 05/30/17 17:38 Dose: 20 mg Ferrous Gluconate (Fergon) 324 mg PO TID [facility] Last Admin: 05/30/17 17:38 Dose: 324 mg Fluoxetine HCl (Prozac) 20 mg PO DAILY [facility] Last Admin: 05/30/17 09:27 Dose: 20 mg Heparin Sodium (Porcine) (Heparin) 2,000 units IVP TTS [facility] Stop: 06/06/17 10:01 Last Admin: 05/30/17 10:30 Dose: 2,000 units Heparin Sodium (Porcine) (Heparin) 5,000 units SC Q8 [facility] Last Admin: 05/30/17 21:51 Dose: 5,000 units Hydralazine HCl (Apresoline) 25 mg PO Q4 PRN PRN Reason: Other Last Admin: 05/28/17 05:44 Dose: 25 mg Hydralazine HCl (Apresoline) 50 mg PO BID [facility] Last Admin: 05/30/17 17:38 Dose: 50 mg Cefazolin Sodium/Dextrose (Ancef Iv 2 Gm Duplex) 2 gm in 50 mls @ 100 mls/hr IVPB TTS [facility] Last Admin: 05/30/17 09:23 Dose: 100 mls/hr Dextrose (Dextrose 5% In Water 1000 Ml) 1,000 mls @ 0 mls/hr IV .Q0M PRN; Protocol; Per Protocol PRN Reason: Hypoglycemia Protocol Insulin Aspart (Novolog) 0 unit SC ACHS [facility] PRN Reason: Protocol Last Admin: 05/30/17 21:49 Dose: 3 unit Insulin Glargine (Lantus) 10 unit SC HS [facility] Last Admin: 05/30/17 21:49 Dose: 10 unit Lactulose (Enulose) 20 gm PO HS [facility] Last Admin: 05/30/17 21:50 Dose: 20 gm Rosuvastatin Calcium (Crestor) 10 mg PO HS [facility] Last Admin: 05/30/17 21:50 Dose: 10 mg Sucralfate (Carafate Tab) 1 gm PO BID [facility] Last Admin: 05/30/17 17:38 Dose: 1 gm Vitamin B Complex/Vit C/Folic Acid (Nephro-Naren) 1 tab PO DAILY [facility] Last Admin: 05/30/17 09:26 Dose: 1 tab - Labs Labs: 05/30/17 06:16 05/30/17 06:16 PT 13.5 SECONDS (9.7-12.2) H 05/28/17 06:43 INR 1.2 11/21/17 06:43 APTT 40 SECONDS (21-34) H 05/28/17 06:43 - Constitutional Appears: Non-toxic - Head Exam Head Exam: ATRAUMATIC - Eye Exam Eye Exam: EOMI - ENT Exam ENT Exam: Mucous Membranes Moist - Neck Exam Neck Exam: Full ROM - Respiratory Exam Respiratory Exam: Clear to Ausculation Bilateral - Cardiovascular Exam Cardiovascular Exam: REGULAR RHYTHM - GI/Abdominal Exam GI & Abdominal Exam: Soft - Neurological Exam Neurological Exam: Awake - Psychiatric Exam Psychiatric exam: Normal Affect - Skin Skin Exam: Warm Assessment and Plan - Assessment and Plan (Free Text) Assessment: PVD (peripheral vascular disease) Patient should go for angio with Dr. Tovar again for possible arthoplasty, on Aspirin and Plavix for now patient will need amputation; will reconfirm with surgery Diabetic infection of right foot; chronic DM uncontrolled IV ancef 2gram post dialysis Diabetes is uncontrolled A1C 10.1 sliding scale and accu checks with hypoglycemia protocol, Lantus 20 units daily HS. Acute on chronic renal failure Patient has a permacath in for dialysis nephrology is onboard. Continue with dialysis, will need to find out if patient needs AV fistula. Encephalopathy; resolving Seems to be improving neurology onboard; appreciate recs Laculose 20 gm daily. CAD (coronary artery disease) Patient went for Cath with Dr. Ledesma please see his note, she will need PCI which can be done after her leg surgery with Dr. Ledesma. Aspirin, plavix, and Crestor 10mg. Systolic CHF; acute on chronic also 2/2 to noncompliance on Beta kam, will need to follow up with Dr. Ledesma as far medical management. per report from cath, she has a LV EF of 25% patient is on sudden cardiac protocol here with monitor Anemia;chronic Assessment & Plan: Procrit 1000 units and also PO iron. HTN (hypertension); chronic uncontrolled Assessment & Plan: Coreg 3.125gm bid, hydralazine 25mg q4 prn, and also 50mg bid, Depression;chronic prozac 20mg daily Patient is not suicidal however very internally preoccupied Prophylactic measure pepcid 20mg bid, carafate, heparin 5000 units q8h, tylenol for pain. All management as per Dr. Denis
[2017-05-31] MEDS: (Novolog) Insulin Aspart, Recombinant 100 u/ml 10 ml vial SC SCH ×4 (11:45→21:34)
[2017-05-31] MEDS: Multivitamin Vitamin B Complex (Nephro-Vite) Tab PO SCH (12:00)
--- NOTE | 2017-05-31 14:46 | CP.PCM.PN ---
Subjective - Date & Time of Evaluation Date of Evaluation: 05/31/17 Time of Evaluation: 14:45 - Subjective Subjective: Follow up Nephrology Consultation: Assessment: stable Acute Kidney Injury likely contrast induced nephropathy: now on HD since ? severe allergic reaction to polysulphone dialyzer Non-healing ulcer on heel with celluliits Diabetic chronic Kidney Disease (E11.22) Hypertensive Chronic Kidney Disease (I12.9) Chronic Kidney Disease (N18.4) Stage 4 with 500 mg proteinuria (R80.9) possibly due to DM and or HTN Anemia (D64.9), Hyperphosphatemia (E83.39), HTN (I12.9) systolic CHF, Morbid obesity, PVD, depression, CAD Mild Hyperkalemia Plan plan for HD tomorrow with non-polysulphone Glover Exeltra dialyzer. she tolerating HD well with this dialyzer. check labs with HD as much possible continue to monitor for renal recovery and I/O closely. Hypertension control with meds as ordered. continue with coreg, hydralazine 50 mg bid. Increased epogen 56916 unit with HD and continue with phoslo continue with vit D and iron supplementation ID, cardiology and vascular surgery following pt with advanced CKD 4 at baseline, vascular can plan for AV access placement from renal perspective Dose meds/antibiotics for reduced GFR <10. Avoid fleets enema/magnesium based laxatives. Avoid nephrotoxins/NSAIDs Glycemic control Further work up/management as per primary team Thanks for allowing me to participate in care of your patient. Will follow patient with you. Please call if any Qs. Dr Juan Torres Office: [phone] HPI: Pt is a 67 y/o F with hx of diabetes Mellitus hypertension, CHF, chronic anemia, hyperphos, DVT on coumadin, drpression, obesity, dementia, CVA, CKD ? 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 [employer] service used for creole interpretation. ROS: She Denies chest pain, palpitation, shortness of breath. has urinary complaints as decreased urine output. pain Rt neck at permacath suture site better Physical Examination: General Appearance: Comfortable, in no acute respiratory distress, co-operative . obese Vitals reviewed and noted as below Lungs: Normal respiratory rate/effort. Breath sounds bilateral equal and clear anteriorly Heart: Normal rate. s1s2 normal. No rub or gallop. Extremities: 1-2+ edema. No varicose veins. has chronic venous stasis changes. both feets in dressings. bilateral upper extremity swelling + Neurological: Patient is alert, awake and not oriented to person, place or time. ? has dementia. No focal deficit. Strength bilateral appropriate and equal Skin: Warm and dry. Normal turgor. No rash. Palpitation: Normal elasticity for age Abdomen: Abdomen is soft. Bowel sounds +. There is no abdominal tenderness, no guarding/rigidity no organomegaly. she is obese MSK: no joint tenderness or swelling. Digits and nails normal, no deformity : kidney or bladder not palpable Access: permacath Rt IJ Labs/imaging/EKG reviewed. Past medical history, past surgical history, family history, social history, allergy reviewed and noted as below Family hx: no hx of CKD. Rest non-contributory Objective - Vital Signs/Intake and Output Vital Signs (last 24 hours): Temp Pulse Resp BP Pulse Ox 98.2 F 83 13 138/69 100 05/31/17 04:00 05/31/17 07:00 05/31/17 07:00 05/31/17 06:44 05/31/17 07:00 Intake and Output: 05/31/17 05/31/17 06:59 18:59 Intake Total 100 Output Total 0 Balance 100 - Medications Medications: Current Medications Acetaminophen (Tylenol 325mg Tab) 650 mg PO Q6 PRN PRN Reason: Pain, moderate (4-7) Aspirin (Aspirin Chewable) 81 mg PO DAILY [facility] Last Admin: 05/31/17 12:00 Dose: 81 mg Calcium Acetate (Phoslo) 667 mg PO TIDAC [facility] Last Admin: 05/31/17 11:59 Dose: 667 mg Carvedilol (Coreg) 3.125 mg PO BID [facility] Last Admin: 05/31/17 12:00 Dose: 3.125 mg Clopidogrel Bisulfate (Plavix) 75 mg PO DAILY [facility] Last Admin: 05/31/17 12:08 Dose: 75 mg Dextrose (Dextrose 50% Inj) 0 ml IV STAT PRN; Protocol PRN Reason: Hypoglycemia Protocol Dextrose (Glutose 15) 0 gm PO ONCE PRN; Protocol PRN Reason: Hypoglycemia Protocol Epoetin Etienne (Procrit) 4,000 unit IV [facility] Last Admin: 05/30/17 11:10 Dose: 4,000 unit Epoetin Etienne (Procrit) 10,000 unit IV [facility] Last Admin: 05/30/17 11:11 Dose: 10,000 unit Ergocalciferol (Drisdol 50,000 Intl Units Cap) 1 cap PO Q7D [facility] Famotidine (Pepcid) 20 mg PO BID [facility] Last Admin: 05/31/17 12:07 Dose: 20 mg Ferrous Gluconate (Fergon) 324 mg PO TID [facility] Last Admin: 05/31/17 12:00 Dose: 324 mg Fluoxetine HCl (Prozac) 20 mg PO DAILY [facility] Last Admin: 05/31/17 12:08 Dose: 20 mg Heparin Sodium (Porcine) (Heparin) 2,000 units IVP [facility] Stop: 06/06/17 10:01 Last Admin: 05/30/17 10:30 Dose: 2,000 units Hydralazine HCl (Apresoline) 25 mg PO Q4 PRN PRN Reason: Other Last Admin: 05/28/17 05:44 Dose: 25 mg Hydralazine HCl (Apresoline) 50 mg PO BID [facility] Last Admin: 05/31/17 12:04 Dose: 50 mg Cefazolin Sodium/Dextrose (Ancef Iv 2 Gm Duplex) 2 gm in 50 mls @ 100 mls/hr IVPB [facility] Last Admin: 05/30/17 09:23 Dose: 100 mls/hr Dextrose (Dextrose 5% In Water 1000 Ml) 1,000 mls @ 0 mls/hr IV .Q0M PRN; Protocol; Per Protocol PRN Reason: Hypoglycemia Protocol Insulin Aspart (Novolog) 0 unit SC [facility] PRN Reason: Protocol Last Admin: 05/31/17 12:15 Dose: 2 unit Insulin Glargine (Lantus) 10 unit SC [facility] Last Admin: 05/30/17 21:49 Dose: 10 unit Lactulose (Enulose) 20 gm PO [facility] Last Admin: 05/30/17 21:50 Dose: 20 gm Rosuvastatin Calcium (Crestor) 10 mg PO HS [facility] Last Admin: 05/30/17 21:50 Dose: 10 mg Sucralfate (Carafate Tab) 1 gm PO BID [facility] Last Admin: 05/31/17 12:00 Dose: 1 gm Vitamin B Complex/Vit C/Folic Acid (Nephro-Naren) 1 tab PO DAILY [facility] Last Admin: 05/31/17 12:00 Dose: 1 tab - Labs Labs: 05/30/17 06:16 05/30/17 06:16 PT 13.5 SECONDS (9.7-12.2) H 05/28/17 06:43 INR 1.2 05/28/17 06:43 APTT 40 SECONDS (21-34) H 05/28/17 06:43
--- NOTE | 2017-05-31 19:08 | CP.PCM.PN ---
Subjective - Date & Time of Evaluation Date of Evaluation: 05/31/17 Time of Evaluation: 06:00 - Subjective Subjective: EVENTS NOTED AFEB ON IV RX CONT RX/ WOUND CARE Objective - Vital Signs/Intake and Output Vital Signs (last 24 hours): Temp Pulse Resp BP Pulse Ox 98.8 F 76 12 147/75 100 05/31/17 16:00 05/31/17 15:44 05/31/17 15:44 05/31/17 15:44 05/31/17 11:44 Intake and Output: 05/31/17 06/01/17 18:59 06:59 Intake Total 550 Output Total 0 Balance 550 - Medications Medications: Current Medications Acetaminophen (Tylenol 325mg Tab) 650 mg PO Q6 PRN PRN Reason: Pain, moderate (4-7) Aspirin (Aspirin Chewable) 81 mg PO DAILY [facility] Last Admin: 05/31/17 12:00 Dose: 81 mg Calcium Acetate (Phoslo) 667 mg PO TIDAC [facility] Last Admin: 05/31/17 18:32 Dose: 667 mg Carvedilol (Coreg) 3.125 mg PO BID [facility] Last Admin: 05/31/17 18:34 Dose: 3.125 mg Clopidogrel Bisulfate (Plavix) 75 mg PO DAILY [facility] Last Admin: 05/31/17 12:08 Dose: 75 mg Dextrose (Dextrose 50% Inj) 0 ml IV STAT PRN; Protocol PRN Reason: Hypoglycemia Protocol Dextrose (Glutose 15) 0 gm PO ONCE PRN; Protocol PRN Reason: Hypoglycemia Protocol Epoetin Etienne (Procrit) 4,000 unit IV TTS [facility] Last Admin: 05/30/17 11:10 Dose: 4,000 unit Epoetin Etienne (Procrit) 10,000 unit IV TTS [facility] Last Admin: 05/30/17 11:11 Dose: 10,000 unit Ergocalciferol (Drisdol 50,000 Intl Units Cap) 1 cap PO Q7D [facility] Famotidine (Pepcid) 20 mg PO BID [facility] Last Admin: 05/31/17 18:34 Dose: 20 mg Ferrous Gluconate (Fergon) 324 mg PO TID [facility] Last Admin: 05/31/17 18:33 Dose: 324 mg Fluoxetine HCl (Prozac) 20 mg PO DAILY [facility] Last Admin: 05/31/17 12:08 Dose: 20 mg Heparin Sodium (Porcine) (Heparin) 2,000 units IVP [facility] Stop: 06/06/17 10:01 Last Admin: 05/30/17 10:30 Dose: 2,000 units Hydralazine HCl (Apresoline) 25 mg PO Q4 PRN PRN Reason: Other Last Admin: 05/28/17 05:44 Dose: 25 mg Hydralazine HCl (Apresoline) 50 mg PO BID [facility] Last Admin: 05/31/17 18:35 Dose: 50 mg Cefazolin Sodium/Dextrose (Ancef Iv 2 Gm Duplex) 2 gm in 50 mls @ 100 mls/hr IVPB [facility] Last Admin: 05/30/17 09:23 Dose: 100 mls/hr Dextrose (Dextrose 5% In Water 1000 Ml) 1,000 mls @ 0 mls/hr IV .Q0M PRN; Protocol; Per Protocol PRN Reason: Hypoglycemia Protocol Insulin Aspart (Novolog) 0 unit SC [facility] PRN Reason: Protocol Last Admin: 05/31/17 18:32 Dose: 2 unit Insulin Glargine (Lantus) 10 unit SC HS [facility] Last Admin: 05/30/17 21:49 Dose: 10 unit Lactulose (Enulose) 20 gm PO HS [facility] Last Admin: 05/30/17 21:50 Dose: 20 gm Rosuvastatin Calcium (Crestor) 10 mg PO HS [facility] Last Admin: 05/30/17 21:50 Dose: 10 mg Sucralfate (Carafate Tab) 1 gm PO BID [facility] Last Admin: 05/31/17 18:33 Dose: 1 gm Vitamin B Complex/Vit C/Folic Acid (Nephro-Naren) 1 tab PO DAILY [facility] Last Admin: 05/31/17 12:00 Dose: 1 tab - Labs Labs: 05/30/17 06:16 05/30/17 06:16 PT 13.5 SECONDS (9.7-12.2) H 05/28/17 06:43 INR 1.2 05/28/17 06:43 APTT 40 SECONDS (21-34) H 05/28/17 06:43 - Constitutional Appears: Chronically Ill - Eye Exam Eye Exam: absent: Scleral icterus - ENT Exam ENT Exam: Mucous Membranes Dry - Neck Exam Neck Exam: absent: Lymphadenopathy - Respiratory Exam Respiratory Exam: Decreased Breath Sounds - Cardiovascular Exam Cardiovascular Exam: REGULAR RHYTHM - GI/Abdominal Exam GI & Abdominal Exam: Distended, Soft Assessment and Plan (1) Acute on chronic renal failure Status: Acute (2) Dehydration Status: Acute (3) Diabetic infection of right foot Status: Acute (4) Anemia Status: Chronic (5) Chronic heel ulcer Status: Acute
[2017-05-31] MEDS: (Lantus) Insulin Glargine, Recombinant SC SCH (21:38)
--- NOTE | 2017-05-31 22:01 | CP.PCM.PN ---
Subjective - Date & Time of Evaluation Date of Evaluation: 05/31/17 Time of Evaluation: 12:00 - Subjective Subjective: Patient seen and evaluated Denies chest pain and dyspnea For CTA today Physical examination - Constitutional Appears: Non-toxic, No Acute Distress - Head Exam Head Exam: NORMAL INSPECTION - Eye Exam Eye Exam: EOMI - ENT Exam ENT Exam: Mucous Membranes Moist - Respiratory Exam Respiratory Exam: Clear to Ausculation Bilateral, NORMAL BREATHING PATTERN. absent: Rales, Rhonchi, Wheezes - Cardiovascular Exam Cardiovascular Exam: REGULAR RHYTHM, +S1, +S2. absent: Gallop, Rubs, Murmur - GI/Abdominal Exam GI & Abdominal Exam: Soft, Normal Bowel Sounds. absent: Tenderness - Extremities Exam Extremities Exam: Pedal Edema Additional comments: pitting edema and venous stasis changes to mid calf b/l negative Shiloh's Warm toes b/l Right heel wrapped in clean bandage odorous feet - Neurological Exam Neurological Exam: Alert, Awake, Oriented x3 - Psychiatric Exam Psychiatric exam: Normal Affect, Normal Mood - Skin Skin Exam: Normal Color, Warm Objective - Vital Signs/Intake and Output Vital Signs (last 24 hours): Temp Pulse Resp BP Pulse Ox 98.0 F 75 14 125/63 98 05/31/17 19:30 05/31/17 21:00 05/31/17 21:00 05/31/17 20:43 05/31/17 19:30 Intake and Output: 05/31/17 06/01/17 18:59 06:59 Intake Total 550 0 Output Total 0 0 Balance 550 0 - Medications Medications: Current Medications Acetaminophen (Tylenol 325mg Tab) 650 mg PO Q6 PRN PRN Reason: Pain, moderate (4-7) Aspirin (Aspirin Chewable) 81 mg PO DAILY [facility] Last Admin: 05/31/17 12:00 Dose: 81 mg Calcium Acetate (Phoslo) 667 mg PO TIDAC [facility] Last Admin: 05/31/17 18:32 Dose: 667 mg Carvedilol (Coreg) 3.125 mg PO BID [facility] Last Admin: 05/31/17 18:34 Dose: 3.125 mg Clopidogrel Bisulfate (Plavix) 75 mg PO DAILY [facility] Last Admin: 05/31/17 12:08 Dose: 75 mg Dextrose (Dextrose 50% Inj) 0 ml IV STAT PRN; Protocol PRN Reason: Hypoglycemia Protocol Dextrose (Glutose 15) 0 gm PO ONCE PRN; Protocol PRN Reason: Hypoglycemia Protocol Epoetin Etienne (Procrit) 4,000 unit IV TTS [facility] Last Admin: 05/30/17 11:10 Dose: 4,000 unit Epoetin Etienne (Procrit) 10,000 unit IV TTS [facility] Last Admin: 05/30/17 11:11 Dose: 10,000 unit Ergocalciferol (Drisdol 50,000 Intl Units Cap) 1 cap PO Q7D [facility] Famotidine (Pepcid) 20 mg PO BID [facility] Last Admin: 05/31/17 18:34 Dose: 20 mg Ferrous Gluconate (Fergon) 324 mg PO TID [facility] Last Admin: 05/31/17 18:33 Dose: 324 mg Fluoxetine HCl (Prozac) 20 mg PO DAILY [facility] Last Admin: 05/31/17 12:08 Dose: 20 mg Heparin Sodium (Porcine) (Heparin) 2,000 units IVP [facility] Stop: 06/06/17 10:01 Last Admin: 05/30/17 10:30 Dose: 2,000 units Hydralazine HCl (Apresoline) 25 mg PO Q4 PRN PRN Reason: Other Last Admin: 05/28/17 05:44 Dose: 25 mg Hydralazine HCl (Apresoline) 50 mg PO BID [facility] Last Admin: 05/31/17 18:35 Dose: 50 mg Cefazolin Sodium/Dextrose (Ancef Iv 2 Gm Duplex) 2 gm in 50 mls @ 100 mls/hr IVPB [facility] Last Admin: 05/30/17 09:23 Dose: 100 mls/hr Dextrose (Dextrose 5% In Water 1000 Ml) 1,000 mls @ 0 mls/hr IV .Q0M PRN; Protocol; Per Protocol PRN Reason: Hypoglycemia Protocol Insulin Aspart (Novolog) 0 unit SC [facility] PRN Reason: Protocol Last Admin: 05/31/17 21:34 Dose: Not Given Insulin Glargine (Lantus) 10 unit SC HS [facility] Last Admin: 05/31/17 21:38 Dose: 10 unit Lactulose (Enulose) 20 gm PO HS [facility] Last Admin: 05/31/17 21:33 Dose: 20 gm Rosuvastatin Calcium (Crestor) 10 mg PO HS [facility] Last Admin: 05/31/17 21:33 Dose: 10 mg Sucralfate (Carafate Tab) 1 gm PO BID [facility] Last Admin: 05/31/17 18:33 Dose: 1 gm Vitamin B Complex/Vit C/Folic Acid (Nephro-Naren) 1 tab PO DAILY [facility] Last Admin: 05/31/17 12:00 Dose: 1 tab - Labs Labs: 05/30/17 06:16 05/30/17 06:16 PT 13.5 SECONDS (9.7-12.2) H 05/28/17 06:43 INR 1.2 05/28/17 06:43 APTT 40 SECONDS (21-34) H 05/28/17 06:43 Assessment and Plan - Assessment and Plan (Free Text) Assessment: (1) PVD (peripheral vascular disease) Assessment & Plan: Dr. Romero on case Status: Acute (2) Diabetic infection of right foot Assessment & Plan: IV ancef 2gram post dialysis. Status: Acute (3) Acute on chronic renal failure Assessment & Plan: Patient has a permacath in for dialysis, nephrology is onboard. Continue with dialysis, will need to find out if patient needs AV fistula. Status: Acute (4) Encephalopathy acute Assessment & Plan: Seems to be improving, MRI/MRA today, neurology onboard. Laculose 20 gm daily. Status: Acute (5) CAD (coronary artery disease) Assessment & Plan: Aspirin, plavix, and Cretor 10mg. Status: Acute (6) Systolic CHF Assessment & Plan: on Beta kam, will need to follow up with Dr. Ledesma as far medical management. per report from cath, she has a LV EF of 25%. Status: Chronic (7) Anemia Assessment & Plan: Procrit 1000 units and also PO iron. Status: Chronic (8) Diabetes Assessment & Plan: sliding scale and accu checks with hypoglycemia protocol, Lantus 20 units daily HS. Status: Chronic (9) HTN (hypertension) Assessment & Plan: Coreg 3.125gm bid, hydralazine 25mg q4 prn, and also 50mg bid, Status: Acute (10) Depression Assessment & Plan: prozac 20mg daily Status: Chronic (11) Prophylactic measure Assessment & Plan: pepcid 20mg bid, carafacte, heparin 5000 units q8h, tylenol for pain. Status: Acute
[2017-06-01 06:51] LABS: ALB/GLOB RATIO 0.8 (1.0-2.1); BILIRUBIN,TOTAL 0.5 mg/dL (0.2-1.3); CALCIUM 7.8 mg/dl (8.6-10.4); PHOSPHOROUS 3.9 mg/dL (2.5-4.5); POTASSIUM 4.6 mmol/L (3.6-5.2); TOTAL PROTEIN 6.8 g/dL (6.3-8.3)
[2017-06-01] MEDS: (Novolog) Insulin Aspart, Recombinant 100 u/ml 10 ml vial SC SCH ×4 (07:42→21:55)
[2017-06-01] MEDS: Multivitamin Vitamin B Complex (Nephro-Vite) Tab PO SCH (09:11)
[2017-06-01] MEDS: Epoetin Alfa 10,000 unit/ml Dialysis IV SCH (10:04)
[2017-06-01] MEDS: EPOETIN ALFA 4,000 UNIT/ML ML Dialysis IV SCH (10:04)
[2017-06-01] MEDS: ceFAZolin IV 2 gm in Dextrose 2 GM/50 ML BAG IVPB SCH (12:44)
--- NOTE | 2017-06-01 17:09 | CP.PCM.PN ---
Subjective - Date & Time of Evaluation Date of Evaluation: 06/01/17 Time of Evaluation: 17:08 - Subjective Subjective: Follow up Nephrology Consultation: Assessment: stable Acute Kidney Injury likely contrast induced nephropathy: now on HD since ? severe allergic reaction to polysulphone dialyzer Non-healing ulcer on heel with celluliits Diabetic chronic Kidney Disease (E11.22) Hypertensive Chronic Kidney Disease (I12.9) Chronic Kidney Disease (N18.4) Stage 4 with 500 mg proteinuria (R80.9) possibly due to DM and or HTN Anemia (D64.9), Hyperphosphatemia (E83.39), HTN (I12.9) systolic CHF, Morbid obesity, PVD, depression, CAD Mild Hyperkalemia Plan plan for HD today with non-polysulphone Glover Exeltra dialyzer. she tolerating HD well with this dialyzer. check labs with HD as much possible continue to monitor for renal recovery and I/O closely. Hypertension control with meds as ordered. continue with coreg, d/c hydralazine. may add losartan if needed Increased epogen 22547 unit with HD and continue with phoslo continue with vit D and iron supplementation ID, cardiology and vascular surgery following pt with advanced CKD 4 at baseline, vascular can plan for AV access placement from renal perspective Dose meds/antibiotics for reduced GFR <10. Avoid fleets enema/magnesium based laxatives. Avoid nephrotoxins/NSAIDs Glycemic control Further work up/management as per primary team Thanks for allowing me to participate in care of your patient. Will follow patient with you. Please call if any Qs. Dr Juan Torres Office: [phone] HPI: Pt is a 67 y/o F with hx of diabetes Mellitus hypertension, CHF, chronic anemia, hyperphos, DVT on coumadin, drpression, obesity, dementia, CVA, CKD ? 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 [employer] service used for creole interpretation. ROS: She Denies chest pain, palpitation, shortness of breath. has urinary complaints as decreased urine output. pain Rt neck at permacath suture site better Physical Examination: General Appearance: Comfortable, in no acute respiratory distress, co-operative . obese Vitals reviewed and noted as below Lungs: Normal respiratory rate/effort. Breath sounds bilateral equal and clear anteriorly Heart: Normal rate. s1s2 normal. No rub or gallop. Extremities: 1-2+ edema. No varicose veins. has chronic venous stasis changes. both feets in dressings. bilateral upper extremity swelling + Neurological: Patient is alert, awake and not oriented to person, place or time. ? has dementia. No focal deficit. Strength bilateral appropriate and equal Skin: Warm and dry. Normal turgor. No rash. Palpitation: Normal elasticity for age Abdomen: Abdomen is soft. Bowel sounds +. There is no abdominal tenderness, no guarding/rigidity no organomegaly. she is obese MSK: no joint tenderness or swelling. Digits and nails normal, no deformity : kidney or bladder not palpable Access: permacath Rt IJ Labs/imaging/EKG reviewed. Past medical history, past surgical history, family history, social history, allergy reviewed and noted as below Family hx: no hx of CKD. Rest non-contributory Objective - Vital Signs/Intake and Output Vital Signs (last 24 hours): Temp Pulse Resp BP Pulse Ox 98.4 F 88 12 128/68 99 06/01/17 16:00 06/01/17 16:02 06/01/17 16:02 06/01/17 16:02 06/01/17 15:00 Intake and Output: 06/01/17 06/01/17 06:59 18:59 Intake Total 100 690 Output Total 0 Balance 100 690 - Medications Medications: Current Medications Acetaminophen (Tylenol 325mg Tab) 650 mg PO Q6 PRN PRN Reason: Pain, moderate (4-7) Aspirin (Aspirin Chewable) 81 mg PO DAILY [facility] Last Admin: 06/01/17 09:12 Dose: 81 mg Calcium Acetate (Phoslo) 667 mg PO TIDAC [facility] Last Admin: 06/01/17 12:43 Dose: 667 mg Carvedilol (Coreg) 3.125 mg PO BID [facility] Last Admin: 06/01/17 09:13 Dose: Not Given Clopidogrel Bisulfate (Plavix) 75 mg PO DAILY [facility] Last Admin: 06/01/17 09:12 Dose: 75 mg Dextrose (Dextrose 50% Inj) 0 ml IV STAT PRN; Protocol PRN Reason: Hypoglycemia Protocol Dextrose (Glutose 15) 0 gm PO ONCE PRN; Protocol PRN Reason: Hypoglycemia Protocol Epoetin Etienne (Procrit) 4,000 unit IV [facility] Last Admin: 06/01/17 10:04 Dose: 4,000 unit Epoetin Etienne (Procrit) 10,000 unit IV TTS [facility] Last Admin: 06/01/17 10:04 Dose: 10,000 unit Ergocalciferol (Drisdol 50,000 Intl Units Cap) 1 cap PO Q7D [facility] Famotidine (Pepcid) 20 mg PO BID [facility] Last Admin: 06/01/17 09:11 Dose: 20 mg Ferrous Gluconate (Fergon) 324 mg PO TID [facility] Last Admin: 06/01/17 13:41 Dose: 324 mg Fluoxetine HCl (Prozac) 20 mg PO DAILY [facility] Last Admin: 06/01/17 09:12 Dose: 20 mg Heparin Sodium (Porcine) (Heparin) 2,000 units IVP [facility] Stop: 06/06/17 10:01 Last Admin: 06/01/17 10:03 Dose: 2,000 units Heparin Sodium (Porcine) (Heparin) 5,000 units SC Q8 [facility] Last Admin: 06/01/17 13:42 Dose: 5,000 units Hydralazine HCl (Apresoline) 25 mg PO Q4 PRN PRN Reason: Other Last Admin: 05/28/17 05:44 Dose: 25 mg Cefazolin Sodium/Dextrose (Ancef Iv 2 Gm Duplex) 2 gm in 50 mls @ 100 mls/hr IVPB [facility] Last Admin: 06/01/17 12:44 Dose: 100 mls/hr Dextrose (Dextrose 5% In Water 1000 Ml) 1,000 mls @ 0 mls/hr IV .Q0M PRN; Protocol; Per Protocol PRN Reason: Hypoglycemia Protocol Insulin Aspart (Novolog) 0 unit SC [facility] PRN Reason: Protocol Last Admin: 06/01/17 12:43 Dose: 2 unit Insulin Glargine (Lantus) 10 unit SC [facility] Last Admin: 05/31/17 21:38 Dose: 10 unit Lactulose (Enulose) 20 gm PO [facility] Last Admin: 05/31/17 21:33 Dose: 20 gm Rosuvastatin Calcium (Crestor) 10 mg PO HS [facility] Last Admin: 05/31/17 21:33 Dose: 10 mg Sucralfate (Carafate Tab) 1 gm PO BID [facility] Last Admin: 06/01/17 09:12 Dose: 1 gm Vitamin B Complex/Vit C/Folic Acid (Nephro-Naren) 1 tab PO DAILY [facility] Last Admin: 06/01/17 09:11 Dose: 1 tab - Labs Labs: 05/30/17 06:16 06/01/17 06:34 PT 13.5 SECONDS (9.7-12.2) H 05/28/17 06:43 INR 1.2 05/28/17 06:43 APTT 40 SECONDS (21-34) H 05/28/17 06:43
--- NOTE | 2017-06-01 18:31 | CARDCATH ---
PROCEDURE DATE: 05/28/2017 PROCEDURES: 1. Left heart catheterization. 2. Coronary angiogram. 3. Radiological supervision and radiological interpretation of the coronary angiogram and left ventricular angiogram. CLINICAL INDICATIONS: 1. Dyspnea. 2. Abnormal stress test. 3. Hypertension. 4. Coronary artery disease. 5. Chronic kidney disease, on hemodialysis. 6. Hyperlipidemia. 7. Preop cardiac risk assessment. REFERRING PHYSICIAN: Maite Denis MD PERFORMING PHYSICIAN: Arnulfo Ledesma MD PROCEDURE: Initially, cardiac cath was attempted via the right radial access. However, the patient has radial loop. Hence, the access was switched to right groin. A 2% lidocaine was given in the right groin for local anesthesia. Using micropuncture technique, a 6-[place] sheath was introduced into right common femoral artery. A JL4, 6-[place] diagnostic catheter engaged into left main coronary artery. Contrast injected and left coronary angiogram was performed. Then, IM catheter engaged into right coronary artery. Contrast injected and right coronary angiogram was performed. A #6-[place] pigtail catheter crossed into the left ventricle across aortic valve. LV pressures measured. Contrast injected with power injector. LV angiogram was performed. Pigtail catheter pulled back. Pressure gradient measured across the aortic valve. The patient tolerated the procedure well. FINDINGS: 1. Left main coronary artery is patent. 2. Proximal LAD and distal LAD and diagonal branches are patent. Mid LAD has 30% to 40% nonobstructive stenosis. 3. Distal left circumflex has 80% concentric stenosis. Small obtuse marginal 1 and obtuse marginal 2 branches have diffuse disease. 4. Right coronary artery is codominant system. Proximal right coronary artery has 40% stenosis. 5. Dilated left ventricle with global hypokinesis. Estimated EF is 30%. IMPRESSION: 1. Moderate coronary artery disease as described above. 2. Dilated left ventricle with ejection fraction of 30%. Global hypokinesis. End-diastolic pressure is 30. No gradient across the aortic valve. 3. Plan to intervene left circumflex after the surgery. Arnulfo Ledesma MD [facility]
[2017-06-01] MEDS: (Lantus) Insulin Glargine, Recombinant SC SCH (22:05)
--- NOTE | 2017-06-01 22:23 | CP.PCM.PN ---
Subjective - Date & Time of Evaluation Date of Evaluation: 06/01/17 Time of Evaluation: 11:15 - Subjective Subjective: Patient seen and evaluated No cardiac events Patient for LE angiogram Saturday Physical examination - Constitutional Appears: Non-toxic, No Acute Distress - Head Exam Head Exam: NORMAL INSPECTION - Eye Exam Eye Exam: EOMI - ENT Exam ENT Exam: Mucous Membranes Moist - Respiratory Exam Respiratory Exam: Clear to Ausculation Bilateral, NORMAL BREATHING PATTERN. absent: Rales, Rhonchi, Wheezes - Cardiovascular Exam Cardiovascular Exam: REGULAR RHYTHM, +S1, +S2. absent: Gallop, Rubs, Murmur - GI/Abdominal Exam GI & Abdominal Exam: Soft, Normal Bowel Sounds. absent: Tenderness - Extremities Exam Extremities Exam: Pedal Edema Additional comments: pitting edema and venous stasis changes to mid calf b/l negative Shiloh's Warm toes b/l Right heel wrapped in clean bandage odorous feet - Neurological Exam Neurological Exam: Alert, Awake, Oriented x3 - Psychiatric Exam Psychiatric exam: Normal Affect, Normal Mood - Skin Skin Exam: Normal Color, Warm Objective - Vital Signs/Intake and Output Vital Signs (last 24 hours): Temp Pulse Resp BP Pulse Ox 98.5 F 74 18 128/63 91 L 06/01/17 20:00 06/01/17 22:00 06/01/17 22:00 06/01/17 21:58 06/01/17 22:00 Intake and Output: 06/01/17 06/02/17 18:59 06:59 Intake Total 790 0 Balance 790 0 - Medications Medications: Current Medications Acetaminophen (Tylenol 325mg Tab) 650 mg PO Q6 PRN PRN Reason: Pain, moderate (4-7) Aspirin (Aspirin Chewable) 81 mg PO DAILY [facility] Last Admin: 06/01/17 09:12 Dose: 81 mg Calcium Acetate (Phoslo) 667 mg PO TIDAC [facility] Last Admin: 06/01/17 17:24 Dose: 667 mg Carvedilol (Coreg) 3.125 mg PO BID [facility] Last Admin: 06/01/17 17:24 Dose: 3.125 mg Clopidogrel Bisulfate (Plavix) 75 mg PO DAILY [facility] Last Admin: 06/01/17 09:12 Dose: 75 mg Dextrose (Dextrose 50% Inj) 0 ml IV STAT PRN; Protocol PRN Reason: Hypoglycemia Protocol Dextrose (Glutose 15) 0 gm PO ONCE PRN; Protocol PRN Reason: Hypoglycemia Protocol Epoetin Etienne (Procrit) 4,000 unit IV TTS [facility] Last Admin: 06/01/17 10:04 Dose: 4,000 unit Epoetin Etienne (Procrit) 10,000 unit IV TTS [facility] Last Admin: 06/01/17 10:04 Dose: 10,000 unit Ergocalciferol (Drisdol 50,000 Intl Units Cap) 1 cap PO Q7D [facility] Famotidine (Pepcid) 20 mg PO BID [facility] Last Admin: 06/01/17 17:25 Dose: 20 mg Ferrous Gluconate (Fergon) 324 mg PO TID [facility] Last Admin: 06/01/17 17:24 Dose: 324 mg Fluoxetine HCl (Prozac) 20 mg PO DAILY [facility] Last Admin: 06/01/17 09:12 Dose: 20 mg Heparin Sodium (Porcine) (Heparin) 2,000 units IVP TTS [facility] Stop: 06/06/17 10:01 Last Admin: 06/01/17 10:03 Dose: 2,000 units Heparin Sodium (Porcine) (Heparin) 5,000 units SC Q8 [facility] Last Admin: 06/01/17 22:04 Dose: 5,000 units Hydralazine HCl (Apresoline) 25 mg PO Q4 PRN PRN Reason: Other Last Admin: 05/28/17 05:44 Dose: 25 mg Cefazolin Sodium/Dextrose (Ancef Iv 2 Gm Duplex) 2 gm in 50 mls @ 100 mls/hr IVPB TTS [facility] Last Admin: 06/01/17 12:44 Dose: 100 mls/hr Insulin Aspart (Novolog) 0 unit SC ACHS [facility] PRN Reason: Protocol Last Admin: 06/01/17 21:55 Dose: Not Given Insulin Glargine (Lantus) 10 unit SC HS [facility] Last Admin: 06/01/17 22:05 Dose: 10 unit Lactulose (Enulose) 20 gm PO HS [facility] Last Admin: 06/01/17 22:05 Dose: 20 gm Rosuvastatin Calcium (Crestor) 10 mg PO HS [facility] Last Admin: 06/01/17 22:03 Dose: 10 mg Sucralfate (Carafate Tab) 1 gm PO BID [facility] Last Admin: 06/01/17 17:24 Dose: 1 gm Vitamin B Complex/Vit C/Folic Acid (Nephro-Naren) 1 tab PO DAILY [facility] Last Admin: 06/01/17 09:11 Dose: 1 tab - Labs Labs: 05/30/17 06:16 06/01/17 06:34 PT 13.5 SECONDS (9.7-12.2) H 05/28/17 06:43 INR 1.2 05/28/17 06:43 APTT 40 SECONDS (21-34) H 05/28/17 06:43 Assessment and Plan - Assessment and Plan (Free Text) Assessment: (1) PVD (peripheral vascular disease) Assessment & Plan: Dr. Romero on case Status: Acute (2) Diabetic infection of right foot Assessment & Plan: IV ancef 2gram post dialysis. Status: Acute (3) Acute on chronic renal failure Assessment & Plan: Patient has a permacath in for dialysis, nephrology is onboard. Continue with dialysis, will need to find out if patient needs AV fistula. Status: Acute (4) Encephalopathy acute Assessment & Plan: Seems to be improving, MRI/MRA today, neurology onboard. Laculose 20 gm daily. Status: Acute (5) CAD (coronary artery disease) Assessment & Plan: Aspirin, plavix, and Cretor 10mg. Status: Acute (6) Systolic CHF Assessment & Plan: on Beta kam, will need to follow up with Dr. Ledesma as far medical management. per report from cath, she has a LV EF of 25%. Status: Chronic (7) Anemia Assessment & Plan: Procrit 1000 units and also PO iron. Status: Chronic (8) Diabetes Assessment & Plan: sliding scale and accu checks with hypoglycemia protocol, Lantus 20 units daily HS. Status: Chronic (9) HTN (hypertension) Assessment & Plan: Coreg 3.125gm bid, hydralazine 25mg q4 prn, and also 50mg bid, Status: Acute (10) Depression Assessment & Plan: prozac 20mg daily Status: Chronic (11) Prophylactic measure Assessment & Plan: pepcid 20mg bid, carafacte, heparin 5000 units q8h, tylenol for pain. Status: Acute
[2017-06-02] MEDS: (Novolog) Insulin Aspart, Recombinant 100 u/ml 10 ml vial SC SCH ×4 (08:34→21:55)
[2017-06-02] MEDS: Multivitamin Vitamin B Complex (Nephro-Vite) Tab PO SCH (10:03)
--- NOTE | 2017-06-02 12:13 | CP.PCM.PN ---
Subjective - Date & Time of Evaluation Date of Evaluation: 06/02/17 Time of Evaluation: 06:40 - Subjective Subjective: Vascular Surgery- Dr. Draper Pt S&E at bedside this AM. No acute events overnight. Pt received dialysis yesterday. tolerating current diet. Denies N/V/D F/C CP/SOB Objective - Vital Signs/Intake and Output Vital Signs (last 24 hours): Temp Pulse Resp BP Pulse Ox 98.9 F 73 12 128/58 L 100 06/02/17 08:00 06/02/17 10:00 06/02/17 10:00 06/02/17 09:58 06/02/17 10:00 Intake and Output: 06/02/17 06/02/17 06:59 18:59 Intake Total 240 320 Output Total 0 Balance 240 320 - Medications Medications: Current Medications Acetaminophen (Tylenol 325mg Tab) 650 mg PO Q6 PRN PRN Reason: Pain, moderate (4-7) Aspirin (Aspirin Chewable) 81 mg PO DAILY [facility] Last Admin: 06/02/17 10:03 Dose: 81 mg Calcium Acetate (Phoslo) 667 mg PO TIDAC [facility] Last Admin: 06/02/17 08:34 Dose: 667 mg Carvedilol (Coreg) 3.125 mg PO BID [facility] Last Admin: 06/02/17 10:03 Dose: 3.125 mg Clopidogrel Bisulfate (Plavix) 75 mg PO DAILY [facility] Last Admin: 06/02/17 10:03 Dose: 75 mg Dextrose (Dextrose 50% Inj) 0 ml IV STAT PRN; Protocol PRN Reason: Hypoglycemia Protocol Dextrose (Glutose 15) 0 gm PO ONCE PRN; Protocol PRN Reason: Hypoglycemia Protocol Epoetin Etienne (Procrit) 4,000 unit IV TTS [facility] Last Admin: 06/01/17 10:04 Dose: 4,000 unit Epoetin Etienne (Procrit) 10,000 unit IV TTS [facility] Last Admin: 06/01/17 10:04 Dose: 10,000 unit Ergocalciferol (Drisdol 50,000 Intl Units Cap) 1 cap PO Q7D [facility] Famotidine (Pepcid) 20 mg PO BID [facility] Last Admin: 06/02/17 10:03 Dose: 20 mg Ferrous Gluconate (Fergon) 324 mg PO TID [facility] Last Admin: 06/02/17 10:03 Dose: 324 mg Fluoxetine HCl (Prozac) 20 mg PO DAILY [facility] Last Admin: 06/02/17 10:03 Dose: 20 mg Heparin Sodium (Porcine) (Heparin) 2,000 units IVP TTS [facility] Stop: 06/06/17 10:01 Last Admin: 06/01/17 10:03 Dose: 2,000 units Heparin Sodium (Porcine) (Heparin) 5,000 units SC Q8 [facility] Last Admin: 06/02/17 05:42 Dose: 5,000 units Hydralazine HCl (Apresoline) 25 mg PO Q4 PRN PRN Reason: Other Last Admin: 05/28/17 05:44 Dose: 25 mg Cefazolin Sodium/Dextrose (Ancef Iv 2 Gm Duplex) 2 gm in 50 mls @ 100 mls/hr IVPB TTS [facility] Last Admin: 06/01/17 12:44 Dose: 100 mls/hr Insulin Aspart (Novolog) 0 unit SC ACHS [facility] PRN Reason: Protocol Last Admin: 06/02/17 08:34 Dose: Not Given Insulin Glargine (Lantus) 10 unit SC HS [facility] Last Admin: 06/01/17 22:05 Dose: 10 unit Lactulose (Enulose) 20 gm PO HS [facility] Last Admin: 06/01/17 22:05 Dose: 20 gm Rosuvastatin Calcium (Crestor) 10 mg PO HS [facility] Last Admin: 06/01/17 22:03 Dose: 10 mg Sucralfate (Carafate Tab) 1 gm PO BID [facility] Last Admin: 06/02/17 10:03 Dose: 1 gm Vitamin B Complex/Vit C/Folic Acid (Nephro-Naren) 1 tab PO DAILY [facility] Last Admin: 06/02/17 10:03 Dose: 1 tab - Labs Labs: 05/30/17 06:16 06/01/17 06:34 PT 13.5 SECONDS (9.7-12.2) H 05/28/17 06:43 INR 1.2 05/28/17 06:43 APTT 40 SECONDS (21-34) H 05/28/17 06:43 - Constitutional Appears: Non-toxic, No Acute Distress - Head Exam Head Exam: ATRAUMATIC - Eye Exam Eye Exam: EOMI. absent: Scleral icterus - ENT Exam ENT Exam: Mucous Membranes Moist - Respiratory Exam Respiratory Exam: NORMAL BREATHING PATTERN. absent: Accessory Muscle Use, Respiratory Distress - Cardiovascular Exam Cardiovascular Exam: +S1, +S2. absent: Bradycardia, Tachycardia - GI/Abdominal Exam GI & Abdominal Exam: Soft. absent: Distended, Tenderness - Extremities Exam Extremities Exam: Normal Inspection. absent: Calf Tenderness - Neurological Exam Neurological Exam: Awake - Psychiatric Exam Psychiatric exam: Normal Affect - Skin Skin Exam: Intact, Warm Assessment and Plan - Assessment and Plan (Free Text) Assessment: 67 y/o F w (R) heel ulcer and s/p Permacath insertion Received dialysis yesterday using Glover Diasylate. No issues during dialysis Plan: - NPO @ [facility] - Angio tomorrow - IVF - medical management per ICU team Maco Butt PGY1
--- NOTE | 2017-06-02 14:57 | CP.PCM.PN ---
Subjective - Date & Time of Evaluation Date of Evaluation: 06/02/17 Time of Evaluation: 14:56 - Subjective Subjective: Follow up Nephrology Consultation: Assessment: stable Acute Kidney Injury likely contrast induced nephropathy: now on HD since ? severe allergic reaction to polysulphone dialyzer Non-healing ulcer on heel with celluliits Diabetic chronic Kidney Disease (E11.22) Hypertensive Chronic Kidney Disease (I12.9) Chronic Kidney Disease (N18.4) Stage 4 with 500 mg proteinuria (R80.9) possibly due to DM and or HTN Anemia (D64.9), Hyperphosphatemia (E83.39), HTN (I12.9) systolic CHF, Morbid obesity, PVD, depression, CAD Mild Hyperkalemia Plan plan for HD saturday with non-polysulphone Glover Exeltra dialyzer. she tolerating HD well with this dialyzer. check labs with HD as much possible continue to monitor for renal recovery and I/O closely. Hypertension control with meds as ordered. continue with coreg, d/c hydralazine. may add losartan if needed Increased epogen 62453 unit with HD and continue with phoslo continue with vit D and iron supplementation ID, cardiology and vascular surgery following pt with advanced CKD 4 at baseline, vascular can plan for AV access placement from renal perspective Dose meds/antibiotics for reduced GFR <10. Avoid fleets enema/magnesium based laxatives. Avoid nephrotoxins/NSAIDs Glycemic control Further work up/management as per primary team Thanks for allowing me to participate in care of your patient. Will follow patient with you. Please call if any Qs. Dr Juan Torres Office: [phone] HPI: Pt is a 67 y/o F with hx of diabetes Mellitus hypertension, CHF, chronic anemia, hyperphos, DVT on coumadin, drpression, obesity, dementia, CVA, CKD ? 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 [employer] service used for creole interpretation. ROS: She Denies chest pain, palpitation, shortness of breath. has urinary complaints as decreased urine output. pain Rt neck at permacath suture site better Physical Examination: General Appearance: Comfortable, in no acute respiratory distress, co-operative . obese Vitals reviewed and noted as below Lungs: Normal respiratory rate/effort. Breath sounds bilateral equal and clear anteriorly Heart: Normal rate. s1s2 normal. No rub or gallop. Extremities: 1-2+ edema. No varicose veins. has chronic venous stasis changes. both feets in dressings. bilateral upper extremity swelling + Neurological: Patient is alert, awake and not oriented to person, place or time. ? has dementia. No focal deficit. Strength bilateral appropriate and equal Skin: Warm and dry. Normal turgor. No rash. Palpitation: Normal elasticity for age Abdomen: Abdomen is soft. Bowel sounds +. There is no abdominal tenderness, no guarding/rigidity no organomegaly. she is obese MSK: no joint tenderness or swelling. Digits and nails normal, no deformity : kidney or bladder not palpable Access: permacath Rt IJ Labs/imaging/EKG reviewed. Past medical history, past surgical history, family history, social history, allergy reviewed and noted as below Family hx: no hx of CKD. Rest non-contributory Objective - Vital Signs/Intake and Output Vital Signs (last 24 hours): Temp Pulse Resp BP Pulse Ox 98.9 F 72 13 123/63 95 06/02/17 08:00 06/02/17 14:00 06/02/17 14:00 06/02/17 11:58 06/02/17 14:00 Intake and Output: 06/02/17 06/02/17 06:59 18:59 Intake Total 240 520 Output Total 0 Balance 240 520 - Medications Medications: Current Medications Acetaminophen (Tylenol 325mg Tab) 650 mg PO Q6 PRN PRN Reason: Pain, moderate (4-7) Aspirin (Aspirin Chewable) 81 mg PO DAILY [facility] Last Admin: 06/02/17 10:03 Dose: 81 mg Calcium Acetate (Phoslo) 667 mg PO TIDAC [facility] Last Admin: 06/02/17 12:17 Dose: 667 mg Carvedilol (Coreg) 3.125 mg PO BID [facility] Last Admin: 06/02/17 10:03 Dose: 3.125 mg Clopidogrel Bisulfate (Plavix) 75 mg PO DAILY [facility] Last Admin: 06/02/17 10:03 Dose: 75 mg Dextrose (Dextrose 50% Inj) 0 ml IV STAT PRN; Protocol PRN Reason: Hypoglycemia Protocol Dextrose (Glutose 15) 0 gm PO ONCE PRN; Protocol PRN Reason: Hypoglycemia Protocol Epoetin Etienne (Procrit) 4,000 unit IV TTS [facility] Last Admin: 06/01/17 10:04 Dose: 4,000 unit Epoetin Etienne (Procrit) 10,000 unit IV TTS [facility] Last Admin: 06/01/17 10:04 Dose: 10,000 unit Ergocalciferol (Drisdol 50,000 Intl Units Cap) 1 cap PO Q7D [facility] Famotidine (Pepcid) 20 mg PO BID [facility] Last Admin: 06/02/17 10:03 Dose: 20 mg Ferrous Gluconate (Fergon) 324 mg PO TID [facility] Last Admin: 06/02/17 14:18 Dose: 324 mg Fluoxetine HCl (Prozac) 20 mg PO DAILY [facility] Last Admin: 06/02/17 10:03 Dose: 20 mg Heparin Sodium (Porcine) (Heparin) 2,000 units IVP TTS [facility] Stop: 06/06/17 10:01 Last Admin: 06/01/17 10:03 Dose: 2,000 units Heparin Sodium (Porcine) (Heparin) 5,000 units SC Q8 [facility] Last Admin: 06/02/17 14:18 Dose: 5,000 units Hydralazine HCl (Apresoline) 25 mg PO Q4 PRN PRN Reason: Other Last Admin: 05/28/17 05:44 Dose: 25 mg Cefazolin Sodium/Dextrose (Ancef Iv 2 Gm Duplex) 2 gm in 50 mls @ 100 mls/hr IVPB [facility] Last Admin: 06/01/17 12:44 Dose: 100 mls/hr Insulin Aspart (Novolog) 0 unit SC ACHS [facility] PRN Reason: Protocol Last Admin: 06/02/17 12:15 Dose: 2 unit Insulin Glargine (Lantus) 10 unit SC HS [facility] Last Admin: 06/01/17 22:05 Dose: 10 unit Lactulose (Enulose) 20 gm PO HS [facility] Last Admin: 06/01/17 22:05 Dose: 20 gm Rosuvastatin Calcium (Crestor) 10 mg PO HS [facility] Last Admin: 06/01/17 22:03 Dose: 10 mg Sucralfate (Carafate Tab) 1 gm PO BID [facility] Last Admin: 06/02/17 10:03 Dose: 1 gm Vitamin B Complex/Vit C/Folic Acid (Nephro-Naren) 1 tab PO DAILY [facility] Last Admin: 06/02/17 10:03 Dose: 1 tab - Labs Labs: 05/30/17 06:16 06/01/17 06:34 PT 13.5 SECONDS (9.7-12.2) H 05/28/17 06:43 INR 1.2 05/28/17 06:43 APTT 40 SECONDS (21-34) H 05/28/17 06:43
--- NOTE | 2017-06-02 16:38 | CP.PCM.PN ---
Subjective - Date & Time of Evaluation Date of Evaluation: 06/02/17 Time of Evaluation: 09:00 - Subjective Subjective: afebrile s/p contrast nephropathy iv rx for right foot ulcer/ om in progress Objective - Vital Signs/Intake and Output Vital Signs (last 24 hours): Temp Pulse Resp BP Pulse Ox 98.4 F 69 18 137/72 98 06/02/17 16:00 06/02/17 16:00 06/02/17 16:00 06/02/17 16:00 06/02/17 16:00 Intake and Output: 06/02/17 06/02/17 06:59 18:59 Intake Total 240 520 Output Total 0 Balance 240 520 - Medications Medications: Current Medications Acetaminophen (Tylenol 325mg Tab) 650 mg PO Q6 PRN PRN Reason: Pain, moderate (4-7) Aspirin (Aspirin Chewable) 81 mg PO DAILY [facility] Last Admin: 06/02/17 10:03 Dose: 81 mg Calcium Acetate (Phoslo) 667 mg PO TIDAC [facility] Last Admin: 06/02/17 12:17 Dose: 667 mg Carvedilol (Coreg) 3.125 mg PO BID [facility] Last Admin: 06/02/17 10:03 Dose: 3.125 mg Clopidogrel Bisulfate (Plavix) 75 mg PO DAILY [facility] Last Admin: 06/02/17 10:03 Dose: 75 mg Dextrose (Dextrose 50% Inj) 0 ml IV STAT PRN; Protocol PRN Reason: Hypoglycemia Protocol Dextrose (Glutose 15) 0 gm PO ONCE PRN; Protocol PRN Reason: Hypoglycemia Protocol Epoetin Etienne (Procrit) 4,000 unit IV TTS [facility] Last Admin: 06/01/17 10:04 Dose: 4,000 unit Epoetin Etienne (Procrit) 10,000 unit IV TTS [facility] Last Admin: 06/01/17 10:04 Dose: 10,000 unit Ergocalciferol (Drisdol 50,000 Intl Units Cap) 1 cap PO Q7D [facility] Famotidine (Pepcid) 20 mg PO BID [facility] Last Admin: 06/02/17 10:03 Dose: 20 mg Ferrous Gluconate (Fergon) 324 mg PO TID [facility] Last Admin: 06/02/17 14:18 Dose: 324 mg Fluoxetine HCl (Prozac) 20 mg PO DAILY [facility] Last Admin: 06/02/17 10:03 Dose: 20 mg Heparin Sodium (Porcine) (Heparin) 2,000 units IVP TTS [facility] Stop: 06/06/17 10:01 Last Admin: 06/01/17 10:03 Dose: 2,000 units Heparin Sodium (Porcine) (Heparin) 5,000 units SC Q8 [facility] Last Admin: 06/02/17 14:18 Dose: 5,000 units Hydralazine HCl (Apresoline) 25 mg PO Q4 PRN PRN Reason: Other Last Admin: 05/28/17 05:44 Dose: 25 mg Insulin Aspart (Novolog) 0 unit SC ACHS [facility] PRN Reason: Protocol Last Admin: 06/02/17 12:15 Dose: 2 unit Insulin Glargine (Lantus) 10 unit SC HS [facility] Last Admin: 06/01/17 22:05 Dose: 10 unit Lactulose (Enulose) 20 gm PO HS [facility] Last Admin: 06/01/17 22:05 Dose: 20 gm Rosuvastatin Calcium (Crestor) 10 mg PO HS [facility] Last Admin: 06/01/17 22:03 Dose: 10 mg Sucralfate (Carafate Tab) 1 gm PO BID [facility] Last Admin: 06/02/17 10:03 Dose: 1 gm Vitamin B Complex/Vit C/Folic Acid (Nephro-Naren) 1 tab PO DAILY [facility] Last Admin: 06/02/17 10:03 Dose: 1 tab - Labs Labs: 05/30/17 06:16 06/01/17 06:34 PT 13.5 SECONDS (9.7-12.2) H 05/28/17 06:43 INR 1.2 05/28/17 06:43 APTT 40 SECONDS (21-34) H 05/28/17 06:43 - Constitutional Appears: Non-toxic, Chronically Ill - Head Exam Head Exam: NORMOCEPHALIC - Eye Exam Eye Exam: PERRL - ENT Exam ENT Exam: Normal External Ear Exam - Neck Exam Neck Exam: absent: Lymphadenopathy - Respiratory Exam Respiratory Exam: Decreased Breath Sounds - Cardiovascular Exam Cardiovascular Exam: REGULAR RHYTHM - GI/Abdominal Exam GI & Abdominal Exam: Distended - Rectal Exam Rectal Exam: Deferred - Exam Exam: NORMAL INSPECTION - Extremities Exam Extremities Exam: absent: Pedal Edema - Back Exam Back Exam: absent: CVA tenderness (L), CVA tenderness (R) - Neurological Exam Neurological Exam: Altered - Psychiatric Exam Psychiatric exam: Depressed Assessment and Plan (1) Acute on chronic renal failure Status: Acute (2) Dehydration Status: Acute (3) Diabetic infection of right foot Status: Acute (4) Anemia Status: Chronic (5) Chronic heel ulcer Status: Acute
[2017-06-02] MEDS ORDERED: ceFAZolin IV 2 gm in Dextrose 1 GM/50 ML BAG IVPB ONE (16:39)
[2017-06-02] MEDS ORDERED: ceFAZolin IV 2 gm in Dextrose 1 GM/50 ML BAG IVPB SCH (18:00)
--- NOTE | 2017-06-02 19:49 | CP.PCM.PN ---
Subjective - Date & Time of Evaluation Date of Evaluation: 06/02/17 Time of Evaluation: 18:55 - Subjective Subjective: Patient seen and evaluated No cardiac events noted Denies chest pain and dyspnea For LE angiogram tomorrow Physical examination - Constitutional Appears: Non-toxic, No Acute Distress - Head Exam Head Exam: NORMAL INSPECTION - Eye Exam Eye Exam: EOMI - ENT Exam ENT Exam: Mucous Membranes Moist - Respiratory Exam Respiratory Exam: Clear to Ausculation Bilateral, NORMAL BREATHING PATTERN. absent: Rales, Rhonchi, Wheezes - Cardiovascular Exam Cardiovascular Exam: REGULAR RHYTHM, +S1, +S2. absent: Gallop, Rubs, Murmur - GI/Abdominal Exam GI & Abdominal Exam: Soft, Normal Bowel Sounds. absent: Tenderness - Extremities Exam Extremities Exam: Pedal Edema Additional comments: pitting edema and venous stasis changes to mid calf b/l negative Shiloh's Warm toes b/l Right heel wrapped in clean bandage odorous feet - Neurological Exam Neurological Exam: Alert, Awake, Oriented x3 - Psychiatric Exam Psychiatric exam: Normal Affect, Normal Mood - Skin Skin Exam: Normal Color, Warm Objective - Vital Signs/Intake and Output Vital Signs (last 24 hours): Temp Pulse Resp BP Pulse Ox 98.4 F 68 18 146/73 100 06/02/17 16:00 06/02/17 18:00 06/02/17 18:00 06/02/17 17:58 06/02/17 18:00 Intake and Output: 06/02/17 06/03/17 18:59 06:59 Intake Total 620 Output Total 0 Balance 620 - Medications Medications: Current Medications Acetaminophen (Tylenol 325mg Tab) 650 mg PO Q6 PRN PRN Reason: Pain, moderate (4-7) Aspirin (Aspirin Chewable) 81 mg PO DAILY [facility] Last Admin: 06/02/17 10:03 Dose: 81 mg Calcium Acetate (Phoslo) 667 mg PO TIDAC [facility] Last Admin: 06/02/17 16:37 Dose: 667 mg Carvedilol (Coreg) 3.125 mg PO BID [facility] Last Admin: 06/02/17 17:45 Dose: 3.125 mg Clopidogrel Bisulfate (Plavix) 75 mg PO DAILY [facility] Last Admin: 06/02/17 10:03 Dose: 75 mg Dextrose (Dextrose 50% Inj) 0 ml IV STAT PRN; Protocol PRN Reason: Hypoglycemia Protocol Dextrose (Glutose 15) 0 gm PO ONCE PRN; Protocol PRN Reason: Hypoglycemia Protocol Epoetin Etienne (Procrit) 4,000 unit IV TTS [facility] Last Admin: 06/01/17 10:04 Dose: 4,000 unit Epoetin Etienne (Procrit) 10,000 unit IV TTS [facility] Last Admin: 06/01/17 10:04 Dose: 10,000 unit Ergocalciferol (Drisdol 50,000 Intl Units Cap) 1 cap PO Q7D [facility] Famotidine (Pepcid) 20 mg PO BID [facility] Last Admin: 06/02/17 17:45 Dose: 20 mg Ferrous Gluconate (Fergon) 324 mg PO TID [facility] Last Admin: 06/02/17 17:45 Dose: 324 mg Fluoxetine HCl (Prozac) 20 mg PO DAILY [facility] Last Admin: 06/02/17 10:03 Dose: 20 mg Heparin Sodium (Porcine) (Heparin) 2,000 units IVP TTS [facility] Stop: 06/06/17 10:01 Last Admin: 06/01/17 10:03 Dose: 2,000 units Heparin Sodium (Porcine) (Heparin) 5,000 units SC Q8 [facility] Last Admin: 06/02/17 14:18 Dose: 5,000 units Hydralazine HCl (Apresoline) 25 mg PO Q4 PRN PRN Reason: Other Last Admin: 05/28/17 05:44 Dose: 25 mg Cefazolin Sodium/Dextrose (Ancef Iv 2 Gm Duplex) 1 gm in 50 mls @ 100 mls/hr IVPB TTS [facility] Insulin Aspart (Novolog) 0 unit SC ACHS [facility] PRN Reason: Protocol Last Admin: 06/02/17 16:37 Dose: 2 unit Insulin Glargine (Lantus) 10 unit SC HS [facility] Last Admin: 06/01/17 22:05 Dose: 10 unit Lactulose (Enulose) 20 gm PO HS [facility] Last Admin: 06/01/17 22:05 Dose: 20 gm Rosuvastatin Calcium (Crestor) 10 mg PO HS [facility] Last Admin: 06/01/17 22:03 Dose: 10 mg Sucralfate (Carafate Tab) 1 gm PO BID [facility] Last Admin: 06/02/17 17:45 Dose: 1 gm Vitamin B Complex/Vit C/Folic Acid (Nephro-Naren) 1 tab PO DAILY [facility] Last Admin: 06/02/17 10:03 Dose: 1 tab - Labs Labs: 05/30/17 06:16 06/01/17 06:34 PT 13.5 SECONDS (9.7-12.2) H 05/28/17 06:43 INR 1.2 05/28/17 06:43 APTT 40 SECONDS (21-34) H 05/28/17 06:43 Assessment and Plan - Assessment and Plan (Free Text) Assessment: (1) PVD (peripheral vascular disease) Assessment & Plan: Dr. Romero on case Status: Acute (2) Diabetic infection of right foot Assessment & Plan: IV ancef 2gram post dialysis. Status: Acute (3) Acute on chronic renal failure Assessment & Plan: Patient has a permacath in for dialysis, nephrology is onboard. Continue with dialysis, will need to find out if patient needs AV fistula. Status: Acute (4) Encephalopathy acute Assessment & Plan: Seems to be improving, MRI/MRA today, neurology onboard. Laculose 20 gm daily. Status: Acute (5) CAD (coronary artery disease) Assessment & Plan: Aspirin, plavix, and Cretor 10mg. Status: Acute (6) Systolic CHF Assessment & Plan: on Beta kam, will need to follow up with Dr. Ledesma as far medical management. per report from cath, she has a LV EF of 25%. Status: Chronic (7) Anemia Assessment & Plan: Procrit 1000 units and also PO iron. Status: Chronic (8) Diabetes Assessment & Plan: sliding scale and accu checks with hypoglycemia protocol, Lantus 20 units daily HS. Status: Chronic (9) HTN (hypertension) Assessment & Plan: Coreg 3.125gm bid, hydralazine 25mg q4 prn, and also 50mg bid, Status: Acute (10) Depression Assessment & Plan: prozac 20mg daily Status: Chronic (11) Prophylactic measure Assessment & Plan: pepcid 20mg bid, carafacte, heparin 5000 units q8h, tylenol for pain. Status: Acute
[2017-06-02] MEDS: (Lantus) Insulin Glargine, Recombinant SC SCH (22:15)
[2017-06-03 06:44] LABS: BASO # 0.1 K/uL (0.0-0.2); BASO % 0.7 % (0.0-2.0); EOS # 0.3 K/uL (0.0-0.7); EOS % 4.5 % (0.0-4.0); HEMATOCRIT 27.7 % (34.0-47.0); LYMPH # 1.2 K/uL (1.0-4.3); LYMPH % 15.2 % (20.0-40.0); MEAN CELL VOLUME 94.6 fL (81.0-99.0); MEAN CORPUSCULAR HEMOGLOBIN 30.2 pg (27.0-31.0); MEAN CORPUSCULAR HGB CONC 31.9 g/dL (33.0-37.0); MEAN PLATELET VOLUME 8.9 fL (7.2-11.7); MONO # 1.2 K/uL (0.0-0.8); MONO % 16.1 % (0.0-10.0); NRBC % 0.6 % (0.0-2.0); RED CELL DISTRIBUTION WIDTH 18.9 % (11.5-14.5); WHITE BLOOD COUNT 7.6 K/uL (4.8-10.8)
--- NOTE | 2017-06-03 07:18 | CP.PCM.PN ---
Subjective - Date & Time of Evaluation Date of Evaluation: 06/03/17 Time of Evaluation: 07:15 - Subjective Subjective: ms. Taveras was seen and examined at the bedside. She is alert, oriented to person and place, but thinks its Saturday. She denies any headache, dizziness, lightheadedness, weakness, nausea, or vomiting. She follows simple commands . She is for angiogram of her lower extremities today. There was no untoward events overnight. Objective - Vital Signs/Intake and Output Vital Signs (last 24 hours): Temp Pulse Resp BP Pulse Ox 98.7 F 68 20 147/80 99 06/03/17 04:00 06/03/17 04:00 06/03/17 04:00 06/03/17 03:58 06/03/17 04:00 Intake and Output: 06/03/17 06/03/17 06:59 18:59 Intake Total 150 Output Total 0 Balance 150 - Medications Medications: Current Medications Acetaminophen (Tylenol 325mg Tab) 650 mg PO Q6 PRN PRN Reason: Pain, moderate (4-7) Aspirin (Aspirin Chewable) 81 mg PO DAILY [facility] Last Admin: 06/02/17 10:03 Dose: 81 mg Calcium Acetate (Phoslo) 667 mg PO TIDAC [facility] Last Admin: 06/02/17 16:37 Dose: 667 mg Carvedilol (Coreg) 3.125 mg PO BID [facility] Last Admin: 06/02/17 17:45 Dose: 3.125 mg Clopidogrel Bisulfate (Plavix) 75 mg PO DAILY [facility] Last Admin: 06/02/17 10:03 Dose: 75 mg Dextrose (Dextrose 50% Inj) 0 ml IV STAT PRN; Protocol PRN Reason: Hypoglycemia Protocol Dextrose (Glutose 15) 0 gm PO ONCE PRN; Protocol PRN Reason: Hypoglycemia Protocol Epoetin Etienne (Procrit) 4,000 unit IV TTS [facility] Last Admin: 06/01/17 10:04 Dose: 4,000 unit Epoetin Etienne (Procrit) 10,000 unit IV TTS [facility] Last Admin: 06/01/17 10:04 Dose: 10,000 unit Ergocalciferol (Drisdol 50,000 Intl Units Cap) 1 cap PO Q7D [facility] Famotidine (Pepcid) 20 mg PO BID [facility] Last Admin: 06/02/17 17:45 Dose: 20 mg Ferrous Gluconate (Fergon) 324 mg PO TID [facility] Last Admin: 06/02/17 17:45 Dose: 324 mg Fluoxetine HCl (Prozac) 20 mg PO DAILY [facility] Last Admin: 06/02/17 10:03 Dose: 20 mg Heparin Sodium (Porcine) (Heparin) 2,000 units IVP TTS [facility] Stop: 06/06/17 10:01 Last Admin: 06/01/17 10:03 Dose: 2,000 units Heparin Sodium (Porcine) (Heparin) 5,000 units SC Q8 [facility] Last Admin: 06/03/17 06:14 Dose: 5,000 units Hydralazine HCl (Apresoline) 25 mg PO Q4 PRN PRN Reason: Other Last Admin: 05/28/17 05:44 Dose: 25 mg Cefazolin Sodium/Dextrose (Ancef Iv 2 Gm Duplex) 1 gm in 50 mls @ 100 mls/hr IVPB TTS [facility] Insulin Aspart (Novolog) 0 unit SC ACHS [facility] PRN Reason: Protocol Last Admin: 06/02/17 21:55 Dose: Not Given Insulin Glargine (Lantus) 10 unit SC HS [facility] Last Admin: 06/02/17 22:15 Dose: 10 unit Lactulose (Enulose) 20 gm PO HS [facility] Last Admin: 06/02/17 21:54 Dose: 20 gm Rosuvastatin Calcium (Crestor) 10 mg PO HS [facility] Last Admin: 06/02/17 21:54 Dose: 10 mg Sucralfate (Carafate Tab) 1 gm PO BID [facility] Last Admin: 06/02/17 17:45 Dose: 1 gm Vitamin B Complex/Vit C/Folic Acid (Nephro-Naren) 1 tab PO DAILY [facility] Last Admin: 06/02/17 10:03 Dose: 1 tab - Labs Labs: 06/03/17 06:20 06/01/17 06:34 PT 13.5 SECONDS (9.7-12.2) H 05/28/17 06:43 INR 1.2 05/28/17 06:43 APTT 40 SECONDS (21-34) H 05/28/17 06:43 - Constitutional Appears: No Acute Distress - Head Exam Head Exam: ATRAUMATIC - Neurological Exam Neurological Exam: Alert, Awake Neuro motor strength exam: Left Upper Extremity: 5, Right Upper Extremity: 5, Left Lower Extremity: 5, Right Lower Extremity: 5 Additional comments: She answers majority of the questions appropriately and follows simple commands. Sensation remains intact. Assessment and Plan (1) Encephalopathy acute Assessment & Plan: Case discussed with Dr. Devine, continue all current medical, physical, and occupational therapies. There is no new recommendations from neurology. Status: Acute
[2017-06-03 07:23] LABS: BILIRUBIN,TOTAL 0.7 mg/dL (0.2-1.3); CALCIUM 8.3 mg/dl (8.6-10.4); MAGNESIUM 2.1 mg/dL (1.6-2.3); PHOSPHOROUS 3.4 mg/dL (2.5-4.5); POTASSIUM 4.3 mmol/L (3.6-5.2); TOTAL PROTEIN 6.1 g/dL (6.3-8.3)
[2017-06-03] MEDS: (Novolog) Insulin Aspart, Recombinant 100 u/ml 10 ml vial SC SCH ×4 (08:19→21:26)
[2017-06-03] MEDS ORDERED: Iodixanol 320 MG/ML 100 ML BOTTLE IV ONE ×3 (08:51→09:53)
[2017-06-03] MEDS ORDERED: Nitroglycerin 50mg in D5W 50 MG/250 ML BOTTLE IV ONE (09:10)
[2017-06-03] MEDS ORDERED: Midazolam 2 MG/2 ML VIAL ONE (10:23)
--- NOTE | 2017-06-03 11:07 | CP.PCM.PN ---
Subjective - Date & Time of Evaluation Date of Evaluation: 06/03/17 Time of Evaluation: 07:00 - Subjective Subjective: await angio afeb iv rx renewed Objective - Vital Signs/Intake and Output Vital Signs (last 24 hours): Temp Pulse Resp BP Pulse Ox 99 F 67 22 144/81 100 06/03/17 08:00 06/03/17 08:00 06/03/17 08:00 06/03/17 08:00 06/03/17 08:00 Intake and Output: 06/03/17 06/03/17 06:59 18:59 Intake Total 150 Output Total 0 Balance 150 - Medications Medications: Current Medications Acetaminophen (Tylenol 325mg Tab) 650 mg PO Q6 PRN PRN Reason: Pain, moderate (4-7) Aspirin (Aspirin Chewable) 81 mg PO DAILY [facility] Last Admin: 06/02/17 10:03 Dose: 81 mg Calcium Acetate (Phoslo) 667 mg PO TIDAC [facility] Last Admin: 06/03/17 08:20 Dose: Not Given Carvedilol (Coreg) 3.125 mg PO BID [facility] Last Admin: 06/02/17 17:45 Dose: 3.125 mg Clopidogrel Bisulfate (Plavix) 75 mg PO DAILY [facility] Last Admin: 06/02/17 10:03 Dose: 75 mg Dextrose (Dextrose 50% Inj) 0 ml IV STAT PRN; Protocol PRN Reason: Hypoglycemia Protocol Dextrose (Glutose 15) 0 gm PO ONCE PRN; Protocol PRN Reason: Hypoglycemia Protocol Epoetin Etienne (Procrit) 4,000 unit IV TTS [facility] Last Admin: 06/01/17 10:04 Dose: 4,000 unit Epoetin Etienne (Procrit) 10,000 unit IV TTS [facility] Last Admin: 06/01/17 10:04 Dose: 10,000 unit Ergocalciferol (Drisdol 50,000 Intl Units Cap) 1 cap PO Q7D [facility] Famotidine (Pepcid) 20 mg PO BID [facility] Last Admin: 06/02/17 17:45 Dose: 20 mg Ferrous Gluconate (Fergon) 324 mg PO TID [facility] Last Admin: 06/02/17 17:45 Dose: 324 mg Fluoxetine HCl (Prozac) 20 mg PO DAILY [facility] Last Admin: 06/02/17 10:03 Dose: 20 mg Heparin Sodium (Porcine) (Heparin) 2,000 units IVP TTS [facility] Stop: 06/06/17 10:01 Last Admin: 06/01/17 10:03 Dose: 2,000 units Heparin Sodium (Porcine) (Heparin) 5,000 units SC Q8 [facility] Last Admin: 06/03/17 06:14 Dose: 5,000 units Hydralazine HCl (Apresoline) 25 mg PO Q4 PRN PRN Reason: Other Last Admin: 05/28/17 05:44 Dose: 25 mg Cefazolin Sodium/Dextrose (Ancef Iv 2 Gm Duplex) 1 gm in 50 mls @ 100 mls/hr IVPB TTS [facility] Insulin Aspart (Novolog) 0 unit SC ACHS [facility] PRN Reason: Protocol Last Admin: 06/03/17 08:19 Dose: Not Given Insulin Glargine (Lantus) 10 unit SC HS [facility] Last Admin: 06/02/17 22:15 Dose: 10 unit Lactulose (Enulose) 20 gm PO HS [facility] Last Admin: 06/02/17 21:54 Dose: 20 gm Rosuvastatin Calcium (Crestor) 10 mg PO HS [facility] Last Admin: 06/02/17 21:54 Dose: 10 mg Sucralfate (Carafate Tab) 1 gm PO BID [facility] Last Admin: 06/02/17 17:45 Dose: 1 gm Vitamin B Complex/Vit C/Folic Acid (Nephro-Naren) 1 tab PO DAILY [facility] Last Admin: 06/02/17 10:03 Dose: 1 tab - Labs Labs: 06/03/17 06:20 06/03/17 06:20 PT 13.5 SECONDS (9.7-12.2) H 05/28/17 06:43 INR 1.2 05/28/17 06:43 APTT 40 SECONDS (21-34) H 05/28/17 06:43 - Constitutional Appears: Non-toxic, Chronically Ill - Head Exam Head Exam: NORMOCEPHALIC - Eye Exam Eye Exam: PERRL - ENT Exam ENT Exam: Mucous Membranes Dry - Neck Exam Neck Exam: absent: Lymphadenopathy - Respiratory Exam Respiratory Exam: Decreased Breath Sounds - Cardiovascular Exam Cardiovascular Exam: REGULAR RHYTHM - GI/Abdominal Exam GI & Abdominal Exam: Distended, Soft - Rectal Exam Rectal Exam: Deferred Assessment and Plan (1) Acute on chronic renal failure Status: Acute (2) Dehydration Status: Acute (3) Diabetic infection of right foot Status: Acute (4) Anemia Status: Chronic (5) Chronic heel ulcer Status: Acute
--- NOTE | 2017-06-03 11:24 | PCM.SURG1 ---
Surgeon's Initial Post Op Note - Surgeon's Notes Surgeon: henrietta Scheduling Clerk: 0 Type of Anesthesia: IV Sedation Anesthesia Administered By: rosie Pre-Operative Diagnosis: gangrene left heel Operative Findings: occluded politeal artery left. PT only vessel to foot Post-Operative Diagnosis: same Operation Performed: aortofemoral angiogram via right groin. selective catherization of left femoral artery. pathway atherectomy of left popliteal and posterior tibial. dcb ballon angioplasty 4mm. perclose right Specimen/Specimens Removed: 0 Estimated Blood Loss: EBL {In ML}: 50 Blood Products Given: N/A Drains Used: No Drains Post-Op Condition: Good Date of Surgery/Procedure: 06/03/17 Time of Surgery/Procedure:
[2017-06-03] MEDS: Multivitamin Vitamin B Complex (Nephro-Vite) Tab PO SCH (12:35)
--- NOTE | 2017-06-03 16:01 | CP.PCM.PN ---
Subjective - Date & Time of Evaluation Date of Evaluation: 06/03/17 Time of Evaluation: 16:00 - Subjective Subjective: Follow up Nephrology Consultation: Assessment: stable Acute Kidney Injury likely contrast induced nephropathy: now on HD since ? severe allergic reaction to polysulphone dialyzer Non-healing ulcer on heel with celluliits Diabetic chronic Kidney Disease (E11.22) Hypertensive Chronic Kidney Disease (I12.9) Chronic Kidney Disease (N18.4) Stage 4 with 500 mg proteinuria (R80.9) possibly due to DM and or HTN Anemia (D64.9), Hyperphosphatemia (E83.39), HTN (I12.9) systolic CHF, Morbid obesity, PVD, depression, CAD Mild Hyperkalemia Plan plan for HD saturday with non-polysulphone Glover Exeltra dialyzer. she tolerating HD well with this dialyzer. check labs with HD as much possible continue to monitor for renal recovery and I/O closely. Hypertension control with meds as ordered. continue with coreg, d/c hydralazine. may add losartan if needed Increased epogen 80021 unit with HD and continue with phoslo continue with vit D and iron supplementation ID, cardiology and vascular surgery following pt with advanced CKD 4 at baseline, vascular can plan for AV access placement from renal perspective Dose meds/antibiotics for reduced GFR <10. Avoid fleets enema/magnesium based laxatives. Avoid nephrotoxins/NSAIDs Glycemic control Further work up/management as per primary team Thanks for allowing me to participate in care of your patient. Will follow patient with you. Please call if any Qs. Dr Juan Torres Office: [phone] HPI: Pt is a 67 y/o F with hx of diabetes Mellitus hypertension, CHF, chronic anemia, hyperphos, DVT on coumadin, drpression, obesity, dementia, CVA, CKD ? 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 [employer] service used for creole interpretation. ROS: She Denies chest pain, palpitation, shortness of breath. has urinary complaints as decreased urine output. pain Rt neck at permacath suture site better Physical Examination: General Appearance: Comfortable, in no acute respiratory distress, co-operative . obese Vitals reviewed and noted as below Lungs: Normal respiratory rate/effort. Breath sounds bilateral equal and clear anteriorly Heart: Normal rate. s1s2 normal. No rub or gallop. Extremities: 1-2+ edema. No varicose veins. has chronic venous stasis changes. both feets in dressings. bilateral upper extremity swelling + Neurological: Patient is alert, awake and not oriented to person, place or time. ? has dementia. No focal deficit. Strength bilateral appropriate and equal Skin: Warm and dry. Normal turgor. No rash. Palpitation: Normal elasticity for age Abdomen: Abdomen is soft. Bowel sounds +. There is no abdominal tenderness, no guarding/rigidity no organomegaly. she is obese MSK: no joint tenderness or swelling. Digits and nails normal, no deformity : kidney or bladder not palpable Access: permacath Rt IJ Labs/imaging/EKG reviewed. Past medical history, past surgical history, family history, social history, allergy reviewed and noted as below Family hx: no hx of CKD. Rest non-contributory Objective - Vital Signs/Intake and Output Vital Signs (last 24 hours): Temp Pulse Resp BP Pulse Ox 97.3 F L 70 18 141/70 100 06/03/17 11:45 06/03/17 14:00 06/03/17 14:00 06/03/17 14:00 06/03/17 08:00 Intake and Output: 06/03/17 06/03/17 06:59 18:59 Intake Total 150 Output Total 0 Balance 150 - Medications Medications: Current Medications Acetaminophen (Tylenol 325mg Tab) 650 mg PO Q6 PRN PRN Reason: Pain, moderate (4-7) Aspirin (Aspirin Chewable) 81 mg PO DAILY [facility] Last Admin: 06/03/17 12:34 Dose: Not Given Calcium Acetate (Phoslo) 667 mg PO TIDAC [facility] Last Admin: 06/03/17 12:37 Dose: Not Given Carvedilol (Coreg) 3.125 mg PO BID [facility] Last Admin: 06/03/17 12:34 Dose: Not Given Clopidogrel Bisulfate (Plavix) 75 mg PO DAILY [facility] Last Admin: 06/03/17 12:37 Dose: Not Given Dextrose (Dextrose 50% Inj) 0 ml IV STAT PRN; Protocol PRN Reason: Hypoglycemia Protocol Dextrose (Glutose 15) 0 gm PO ONCE PRN; Protocol PRN Reason: Hypoglycemia Protocol Epoetin Etienne (Procrit) 4,000 unit IV TTS [facility] Last Admin: 06/01/17 10:04 Dose: 4,000 unit Epoetin Etienne (Procrit) 10,000 unit IV TTS [facility] Last Admin: 06/01/17 10:04 Dose: 10,000 unit Ergocalciferol (Drisdol 50,000 Intl Units Cap) 1 cap PO Q7D [facility] Famotidine (Pepcid) 20 mg PO BID [facility] Last Admin: 06/03/17 12:36 Dose: Not Given Ferrous Gluconate (Fergon) 324 mg PO TID [facility] Last Admin: 06/03/17 14:27 Dose: 324 mg Fluoxetine HCl (Prozac) 20 mg PO DAILY [facility] Last Admin: 06/03/17 12:37 Dose: Not Given Heparin Sodium (Porcine) (Heparin) 2,000 units IVP TTS [facility] Stop: 06/06/17 10:01 Last Admin: 06/01/17 10:03 Dose: 2,000 units Heparin Sodium (Porcine) (Heparin) 5,000 units SC Q8 [facility] Last Admin: 06/03/17 14:27 Dose: 5,000 units Hydralazine HCl (Apresoline) 25 mg PO Q4 PRN PRN Reason: Other Last Admin: 05/28/17 05:44 Dose: 25 mg Cefazolin Sodium/Dextrose (Ancef Iv 2 Gm Duplex) 1 gm in 50 mls @ 100 mls/hr IVPB [facility] Insulin Aspart (Novolog) 0 unit SC ACHS [facility] PRN Reason: Protocol Last Admin: 06/03/17 12:35 Dose: Not Given Insulin Glargine (Lantus) 10 unit SC HS [facility] Last Admin: 06/02/17 22:15 Dose: 10 unit Lactulose (Enulose) 20 gm PO HS [facility] Last Admin: 06/02/17 21:54 Dose: 20 gm Rosuvastatin Calcium (Crestor) 10 mg PO HS [facility] Last Admin: 06/02/17 21:54 Dose: 10 mg Sucralfate (Carafate Tab) 1 gm PO BID [facility] Last Admin: 06/03/17 12:34 Dose: Not Given Vitamin B Complex/Vit C/Folic Acid (Nephro-Naren) 1 tab PO DAILY [facility] Last Admin: 06/03/17 12:35 Dose: Not Given - Labs Labs: 06/03/17 06:20 06/03/17 06:20 PT 13.5 SECONDS (9.7-12.2) H 05/28/17 06:43 INR 1.2 05/28/17 06:43 APTT 40 SECONDS (21-34) H 05/28/17 06:43
[2017-06-03] MEDS: (Lantus) Insulin Glargine, Recombinant SC SCH (21:26)
--- NOTE | 2017-06-04 03:07 | OP ---
DATE: 06/03/2017 PREOPERATIVE DIAGNOSIS: Gangrene, left heel. PROCEDURE CARRIED OUT: Aortofemoral angiogram with selective catheterization of left femoral artery, Pathway atherectomy of the left popliteal, posterior tibial balloon angioplasty using a drug-coated balloon of the posterior tibial and popliteal artery left side, Perclose closure right groin. SURGEON: Devon Romero Jr., MD ASSISTANTS: None. ANESTHESIOLOGIST: Mr. Arciniega. ANESTHESIA: Local with sedation. INDICATIONS: The patient is a 67-year-old woman with gangrene of both feet and no intervention could be carried-out on the right side. Subsequently, there were initial angiograms, she developed renal insufficiency which she now requires dialysis. OPERATIVE FINDINGS: The aorta, renal arteries, internal iliac, external iliac artery, common femoral artery, proximal superficial femoral artery, the profunda femoris arteries were widely patent. The superficial femoral arteries were widely patent down to the level of the knee. Below this, there was severe disease evidence of previous interventions. No named vessel reconstitution down to the foot. As seen on previous studies, on the left side, the popliteal artery occluded at the knee joint and reconstituted at the distal popliteal with a primary vessel into the foot and posterior tibial artery was supplied to the foot. No named vessels except for the dorsalis pedis came back distally. Subsequent to the performance of the diagnostic arteriogram, a stiff-angled guidewire was advanced to the aortic bifurcation with great difficulty in advancing a sheath over the aortic bifurcation. Using a variety of techniques, we eventually were able to place a Balkin sheath distal, external iliac artery and carried out intervention from this. The lesion was crossed with a Command ES wire and then this was changed from a bare-metal wire, the atherectomy was carried out after heparin was given and the balloon angioplasty was carried out using initially a 3 and then a 4 mm balloon, 6 mm in length, a drug-coated balloon. The final completion angiogram was excellent showing brisk flow into the foot through the posterior tibial artery. A Perclose device was then deployed in the right groin. OPERATION CARRIED OUT: 1. Aortofemoral angiogram with selective catheterization of the left femoral artery. 2. Pathway atherectomy of the left popliteal and posterior tibial arteries. Drug-coated balloon angioplasty of the left popliteal and posterior tibial arteries. Perclose closure right groin. Devon Romero Jr., MD cc: MD Devon Merino Jr., MD [facility] # [phone]
--- NOTE | 2017-06-04 07:00 | CP.PCM.PN ---
Subjective - Date & Time of Evaluation Date of Evaluation: 06/04/17 Time of Evaluation: 06:57 - Subjective Subjective: Ms. Taveras was seen and examined at the bedside. She is alert, oriented to place and person. She thinks its 2016. She denies any headache, dizziness, lightheadedness, nausea, vomiting, weakness, or numbness. She verbalizes that she had procedure with her lower extremities yesterday. The right groin dressing is intact. There was no untoward events overnight. Objective - Vital Signs/Intake and Output Vital Signs (last 24 hours): Temp Pulse Resp BP Pulse Ox 98.1 F 68 20 135/76 99 06/04/17 04:00 06/04/17 04:15 06/04/17 04:00 06/04/17 04:00 06/04/17 04:00 Intake and Output: 06/03/17 06/04/17 18:59 06:59 Intake Total 210 340 Output Total 0 Balance 210 340 - Medications Medications: Current Medications Acetaminophen (Tylenol 325mg Tab) 650 mg PO Q6 PRN PRN Reason: Pain, moderate (4-7) Aspirin (Aspirin Chewable) 81 mg PO DAILY [facility] Last Admin: 06/03/17 12:34 Dose: Not Given Calcium Acetate (Phoslo) 667 mg PO TIDAC [facility] Last Admin: 06/03/17 17:46 Dose: 667 mg Carvedilol (Coreg) 3.125 mg PO BID [facility] Last Admin: 06/03/17 17:46 Dose: 3.125 mg Clopidogrel Bisulfate (Plavix) 75 mg PO DAILY [facility] Last Admin: 06/03/17 12:37 Dose: Not Given Dextrose (Dextrose 50% Inj) 0 ml IV STAT PRN; Protocol PRN Reason: Hypoglycemia Protocol Dextrose (Glutose 15) 0 gm PO ONCE PRN; Protocol PRN Reason: Hypoglycemia Protocol Epoetin Etienne (Procrit) 4,000 unit IV TTS [facility] Last Admin: 06/01/17 10:04 Dose: 4,000 unit Epoetin Etienne (Procrit) 10,000 unit IV TTS [facility] Last Admin: 06/01/17 10:04 Dose: 10,000 unit Ergocalciferol (Drisdol 50,000 Intl Units Cap) 1 cap PO Q7D [facility] Famotidine (Pepcid) 20 mg PO BID [facility] Last Admin: 06/03/17 17:46 Dose: 20 mg Ferrous Gluconate (Fergon) 324 mg PO TID [facility] Last Admin: 06/03/17 17:46 Dose: 324 mg Fluoxetine HCl (Prozac) 20 mg PO DAILY [facility] Last Admin: 06/03/17 12:37 Dose: Not Given Heparin Sodium (Porcine) (Heparin) 2,000 units IVP TTS [facility] Stop: 06/06/17 10:01 Last Admin: 06/01/17 10:03 Dose: 2,000 units Hydralazine HCl (Apresoline) 25 mg PO Q4 PRN PRN Reason: Other Last Admin: 05/28/17 05:44 Dose: 25 mg Cefazolin Sodium/Dextrose (Ancef Iv 2 Gm Duplex) 1 gm in 50 mls @ 100 mls/hr IVPB TTS [facility] Insulin Aspart (Novolog) 0 unit SC ACHS [facility] PRN Reason: Protocol Last Admin: 06/03/17 21:26 Dose: Not Given Insulin Glargine (Lantus) 10 unit SC HS [facility] Last Admin: 06/03/17 21:26 Dose: 10 unit Lactulose (Enulose) 20 gm PO HS [facility] Last Admin: 06/03/17 21:26 Dose: 20 gm Rosuvastatin Calcium (Crestor) 10 mg PO HS [facility] Last Admin: 06/03/17 21:26 Dose: 10 mg Sucralfate (Carafate Tab) 1 gm PO BID [facility] Last Admin: 06/03/17 17:46 Dose: 1 gm Vitamin B Complex/Vit C/Folic Acid (Nephro-Naren) 1 tab PO DAILY [facility] Last Admin: 06/03/17 12:35 Dose: Not Given - Labs Labs: 06/03/17 06:20 06/03/17 06:20 PT 13.5 SECONDS (9.7-12.2) H 05/28/17 06:43 INR 1.2 05/28/17 06:43 APTT 40 SECONDS (21-34) H 05/28/17 06:43 - Constitutional Appears: No Acute Distress - Head Exam Head Exam: ATRAUMATIC - Neurological Exam Neurological Exam: Alert, Awake, Normal Gait Additional comments: Neurological unchanged from previous examination. Assessment and Plan (1) Encephalopathy acute Assessment & Plan: Case discussed with Dr. Devine, continue all current medical, physical, and occupational therapies. There is no new recommendation from neurology. Status: Acute
[2017-06-04] MEDS: (Novolog) Insulin Aspart, Recombinant 100 u/ml 10 ml vial SC SCH ×4 (07:34→22:24)
--- NOTE | 2017-06-04 07:42 | CP.PCM.PN ---
Subjective - Date & Time of Evaluation Date of Evaluation: 06/04/17 Time of Evaluation: 10:00 - Subjective Subjective: PGY3 medicine on Dr. Denis service: Pt seen and examined in dialysis. S/P angiogram and angioplasty LLE yesterday with Dr. Romero. No complaints at this time. No acute events overnight. Objective - Vital Signs/Intake and Output Vital Signs (last 24 hours): Temp Pulse Resp BP Pulse Ox 98.1 F 68 20 135/76 99 06/04/17 04:00 06/04/17 04:15 06/04/17 04:00 06/04/17 04:00 06/04/17 04:00 Intake and Output: 06/04/17 06/04/17 06:59 18:59 Intake Total 340 Balance 340 - Medications Medications: Current Medications Acetaminophen (Tylenol 325mg Tab) 650 mg PO Q6 PRN PRN Reason: Pain, moderate (4-7) Aspirin (Aspirin Chewable) 81 mg PO DAILY [facility] Last Admin: 06/03/17 12:34 Dose: Not Given Calcium Acetate (Phoslo) 667 mg PO TIDAC [facility] Last Admin: 06/03/17 17:46 Dose: 667 mg Carvedilol (Coreg) 3.125 mg PO BID [facility] Last Admin: 06/03/17 17:46 Dose: 3.125 mg Clopidogrel Bisulfate (Plavix) 75 mg PO DAILY [facility] Last Admin: 06/03/17 12:37 Dose: Not Given Dextrose (Dextrose 50% Inj) 0 ml IV STAT PRN; Protocol PRN Reason: Hypoglycemia Protocol Dextrose (Glutose 15) 0 gm PO ONCE PRN; Protocol PRN Reason: Hypoglycemia Protocol Epoetin Etienne (Procrit) 4,000 unit IV TTS [facility] Last Admin: 06/01/17 10:04 Dose: 4,000 unit Epoetin Etienne (Procrit) 10,000 unit IV TTS [facility] Last Admin: 06/01/17 10:04 Dose: 10,000 unit Ergocalciferol (Drisdol 50,000 Intl Units Cap) 1 cap PO Q7D [facility] Famotidine (Pepcid) 20 mg PO BID [facility] Last Admin: 06/03/17 17:46 Dose: 20 mg Ferrous Gluconate (Fergon) 324 mg PO TID [facility] Last Admin: 06/03/17 17:46 Dose: 324 mg Fluoxetine HCl (Prozac) 20 mg PO DAILY [facility] Last Admin: 06/03/17 12:37 Dose: Not Given Heparin Sodium (Porcine) (Heparin) 2,000 units IVP TTS [facility] Stop: 06/06/17 10:01 Last Admin: 06/01/17 10:03 Dose: 2,000 units Hydralazine HCl (Apresoline) 25 mg PO Q4 PRN PRN Reason: Other Last Admin: 05/28/17 05:44 Dose: 25 mg Cefazolin Sodium/Dextrose (Ancef Iv 2 Gm Duplex) 1 gm in 50 mls @ 100 mls/hr IVPB TTS [facility] Insulin Aspart (Novolog) 0 unit SC ACHS [facility] PRN Reason: Protocol Last Admin: 06/04/17 07:34 Dose: Not Given Insulin Glargine (Lantus) 10 unit SC HS [facility] Last Admin: 06/03/17 21:26 Dose: 10 unit Lactulose (Enulose) 20 gm PO HS [facility] Last Admin: 06/03/17 21:26 Dose: 20 gm Rosuvastatin Calcium (Crestor) 10 mg PO HS [facility] Last Admin: 06/03/17 21:26 Dose: 10 mg Sucralfate (Carafate Tab) 1 gm PO BID [facility] Last Admin: 06/03/17 17:46 Dose: 1 gm Vitamin B Complex/Vit C/Folic Acid (Nephro-Naren) 1 tab PO DAILY [facility] Last Admin: 06/03/17 12:35 Dose: Not Given - Labs Labs: 06/03/17 06:20 06/03/17 06:20 PT 13.5 SECONDS (9.7-12.2) H 05/28/17 06:43 INR 1.2 05/28/17 06:43 APTT 40 SECONDS (21-34) H 05/28/17 06:43 - Constitutional Appears: Non-toxic, No Acute Distress - Head Exam Head Exam: NORMOCEPHALIC - Eye Exam Eye Exam: Normal appearance Pupil Exam: NORMAL ACCOMODATION - Respiratory Exam Respiratory Exam: Clear to Ausculation Bilateral, NORMAL BREATHING PATTERN. absent: Wheezes - Cardiovascular Exam Cardiovascular Exam: REGULAR RHYTHM, +S1, +S2. absent: Gallop - GI/Abdominal Exam GI & Abdominal Exam: Soft, Normal Bowel Sounds. absent: Tenderness - Neurological Exam Neurological Exam: Alert, Awake - Psychiatric Exam Psychiatric exam: Normal Mood Assessment and Plan - Assessment and Plan (Free Text) Assessment: PVD (peripheral vascular disease) S/P angiography and angioplasty LLE. No further intervention at this point per surgery team. Diabetic infection of right foot; chronic DM uncontrolled IV ancef 2gram post dialysis Diabetes is uncontrolled A1C 10.1 sliding scale and accu checks with hypoglycemia protocol, Lantus 20 units daily HS. Pending dialysis placement. Patient will be switched to Vancomycin and Gentamycin upon discharge. Acute on chronic renal failure Patient has a permacath in for dialysis nephrology is onboard. Pending dialysis placement. Patient will be switched to Vancomycin and Gentamycin upon discharge. Encephalopathy; resolving Seems to be improving neurology onboard; appreciate recs Laculose 20 gm daily. CAD (coronary artery disease) Patient went for Cath with Dr. Ledesma please see his note, she will need PCI which can be done after her leg surgery with Dr. Ledesma. Aspirin, Plavix, and Crestor 10mg. Systolic CHF; acute on chronic also 2/2 to noncompliance on Beta kam will need to follow up with Dr. Ledesma as far medical management. per report from cath, she has a LV EF of 25% patient is on sudden cardiac protocol here with monitor Anemia; chronic Assessment & Plan: Procrit 1000 units and also PO iron. HTN (hypertension); chronic uncontrolled Assessment & Plan: Coreg 3.125gm bid, Hydralazine 25mg q4 prn, and also 50mg bid, Depression;chronic Prozac 20mg daily Patient is not suicidal however very internally preoccupied Prophylactic measure Pepcid 20mg bid, carafate, heparin 5000 units q8h, Tylenol for pain. Pending dialysis placement. All management as per Dr. Denis
[2017-06-04] MEDS: Ergocalciferol 50,000 Intl Units Cap PO SCH ×2 (10:00→13:40)
[2017-06-04] MEDS: Epoetin Alfa 10,000 unit/ml Dialysis IV SCH (10:08)
[2017-06-04] MEDS: EPOETIN ALFA 4,000 UNIT/ML ML Dialysis IV SCH (10:08)
[2017-06-04] MEDS: Multivitamin Vitamin B Complex (Nephro-Vite) Tab PO SCH (13:40)
[2017-06-04] MEDS: ceFAZolin IV 2 gm in Dextrose 1 GM/50 ML BAG IVPB SCH (14:56)
--- NOTE | 2017-06-04 15:06 | CP.PCM.PN ---
Subjective - Date & Time of Evaluation Date of Evaluation: 06/04/17 Time of Evaluation: 15:05 - Subjective Subjective: Follow up Nephrology Consultation: Assessment: stable Acute Kidney Injury likely contrast induced nephropathy: now on HD since ? severe allergic reaction to polysulphone dialyzer Non-healing ulcer on heel with celluliits Diabetic chronic Kidney Disease (E11.22) Hypertensive Chronic Kidney Disease (I12.9) Chronic Kidney Disease (N18.4) Stage 4 with 500 mg proteinuria (R80.9) possibly due to DM and or HTN Anemia (D64.9), Hyperphosphatemia (E83.39), HTN (I12.9) systolic CHF, Morbid obesity, PVD, depression, CAD Mild Hyperkalemia Plan plan for HD today with non-polysulphone Glover Exeltra dialyzer. she tolerating HD well with this dialyzer. check labs with HD as much possible continue to monitor for renal recovery and I/O closely. Hypertension control with meds as ordered. continue with coreg, added losartan Increased epogen 41726 unit with HD and continue with phoslo continue with vit D and iron supplementation ID, cardiology and vascular surgery following pt with advanced CKD 4 at baseline, vascular can plan for AV access placement from renal perspective Dose meds/antibiotics for reduced GFR <10. Avoid fleets enema/magnesium based laxatives. Avoid nephrotoxins/NSAIDs Glycemic control Further work up/management as per primary team Thanks for allowing me to participate in care of your patient. Will follow patient with you. Please call if any Qs. Dr Juan Torres Office: [phone] HPI: Pt is a 67 y/o F with hx of diabetes Mellitus hypertension, CHF, chronic anemia, hyperphos, DVT on coumadin, drpression, obesity, dementia, CVA, CKD ? 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 [employer]user[employer] service used for creole interpretation. ROS: She Denies chest pain, palpitation, shortness of breath. has urinary complaints as decreased urine output. Physical Examination: seen during HD General Appearance: Comfortable, in no acute respiratory distress, co-operative . obese Vitals reviewed and noted as below Lungs: Normal respiratory rate/effort. Breath sounds bilateral equal and clear anteriorly Heart: Normal rate. s1s2 normal. No rub or gallop. Extremities: 1-2+ edema. No varicose veins. has chronic venous stasis changes. both feets in dressings. bilateral upper extremity swelling + Neurological: Patient is alert, awake and not oriented to person, place or time. ? has dementia. No focal deficit. Strength bilateral appropriate and equal Skin: Warm and dry. Normal turgor. No rash. Palpitation: Normal elasticity for age Abdomen: Abdomen is soft. Bowel sounds +. There is no abdominal tenderness, no guarding/rigidity no organomegaly. she is obese MSK: no joint tenderness or swelling. Digits and nails normal, no deformity : kidney or bladder not palpable Access: permacath Rt IJ Labs/imaging/EKG reviewed. Past medical history, past surgical history, family history, social history, allergy reviewed and noted as below Family hx: no hx of CKD. Rest non-contributory Objective - Vital Signs/Intake and Output Vital Signs (last 24 hours): Temp Pulse Resp BP Pulse Ox 97.0 F L 85 18 160/87 H 100 06/04/17 13:30 06/04/17 13:30 06/04/17 13:30 06/04/17 13:30 06/04/17 13:30 Intake and Output: 06/04/17 06/04/17 06:59 18:59 Intake Total 340 250 Balance 340 250 - Medications Medications: Current Medications Acetaminophen (Tylenol 325mg Tab) 650 mg PO Q6 PRN PRN Reason: Pain, moderate (4-7) Aspirin (Aspirin Chewable) 81 mg PO DAILY [facility] Last Admin: 06/03/17 12:34 Dose: Not Given Calcium Acetate (Phoslo) 667 mg PO TIDAC [facility] Last Admin: 06/04/17 13:40 Dose: 667 mg Carvedilol (Coreg) 3.125 mg PO BID [facility] Last Admin: 06/03/17 17:46 Dose: 3.125 mg Clopidogrel Bisulfate (Plavix) 75 mg PO DAILY [facility] Last Admin: 06/04/17 13:40 Dose: 75 mg Dextrose (Dextrose 50% Inj) 0 ml IV STAT PRN; Protocol PRN Reason: Hypoglycemia Protocol Dextrose (Glutose 15) 0 gm PO ONCE PRN; Protocol PRN Reason: Hypoglycemia Protocol Epoetin Etienne (Procrit) 4,000 unit IV TTS [facility] Last Admin: 06/04/17 10:08 Dose: 4,000 unit Epoetin Etienne (Procrit) 10,000 unit IV TTS [facility] Last Admin: 06/04/17 10:08 Dose: 10,000 unit Ergocalciferol (Drisdol 50,000 Intl Units Cap) 1 cap PO Q7D [facility] Famotidine (Pepcid) 20 mg PO BID [facility] Last Admin: 06/04/17 13:40 Dose: 20 mg Ferrous Gluconate (Fergon) 324 mg PO TID [facility] Last Admin: 06/03/17 17:46 Dose: 324 mg Fluoxetine HCl (Prozac) 20 mg PO DAILY [facility] Last Admin: 06/03/17 12:37 Dose: Not Given Heparin Sodium (Porcine) (Heparin) 2,000 units IVP TTS [facility] Stop: 06/06/17 10:01 Last Admin: 06/04/17 09:52 Dose: 2,000 units Hydralazine HCl (Apresoline) 25 mg PO Q4 PRN PRN Reason: Other Last Admin: 05/28/17 05:44 Dose: 25 mg Cefazolin Sodium/Dextrose (Ancef Iv 2 Gm Duplex) 1 gm in 50 mls @ 100 mls/hr IVPB TTS [facility] Last Admin: 06/04/17 14:56 Dose: 100 mls/hr Insulin Aspart (Novolog) 0 unit SC ACHS [facility] PRN Reason: Protocol Last Admin: 06/04/17 11:30 Dose: Not Given Insulin Glargine (Lantus) 10 unit SC HS [facility] Last Admin: 06/03/17 21:26 Dose: 10 unit Lactulose (Enulose) 20 gm PO HS [facility] Last Admin: 06/03/17 21:26 Dose: 20 gm Losartan Potassium (Cozaar) 50 mg PO QPM [facility] Rosuvastatin Calcium (Crestor) 10 mg PO HS [facility] Last Admin: 06/03/17 21:26 Dose: 10 mg Sucralfate (Carafate Tab) 1 gm PO BID [facility] Last Admin: 06/03/17 17:46 Dose: 1 gm Vitamin B Complex/Vit C/Folic Acid (Nephro-Naren) 1 tab PO DAILY [facility] Last Admin: 06/04/17 13:40 Dose: 1 tab - Labs Labs: 06/03/17 06:20 06/03/17 06:20 PT 13.5 SECONDS (9.7-12.2) H 05/28/17 06:43 INR 1.2 05/28/17 06:43 APTT 40 SECONDS (21-34) H 05/28/17 06:43
--- NOTE | 2017-06-04 16:31 | CP.PCM.PN ---
Subjective - Date & Time of Evaluation Date of Evaluation: 06/04/17 Time of Evaluation: 16:27 - Subjective Subjective: VASCULAR SURGERY PROGRESS NOTE FOR DR. UGALDE Patient seen and examined at bedside. She came up to the floor from ICU. No complaints. Going for dialysis today. Objective - Vital Signs/Intake and Output Vital Signs (last 24 hours): Temp Pulse Resp BP Pulse Ox 98.5 F 69 20 126/78 93 L 06/04/17 15:00 06/04/17 15:00 06/04/17 15:00 06/04/17 15:00 06/04/17 15:00 Intake and Output: 06/04/17 06/04/17 06:59 18:59 Intake Total 340 250 Balance 340 250 - Medications Medications: Current Medications Acetaminophen (Tylenol 325mg Tab) 650 mg PO Q6 PRN PRN Reason: Pain, moderate (4-7) Aspirin (Aspirin Chewable) 81 mg PO DAILY [facility] Last Admin: 06/04/17 13:30 Dose: 81 mg Calcium Acetate (Phoslo) 667 mg PO TIDAC [facility] Last Admin: 06/04/17 13:40 Dose: 667 mg Carvedilol (Coreg) 3.125 mg PO BID [facility] Last Admin: 06/03/17 17:46 Dose: 3.125 mg Clopidogrel Bisulfate (Plavix) 75 mg PO DAILY [facility] Last Admin: 06/04/17 13:40 Dose: 75 mg Dextrose (Dextrose 50% Inj) 0 ml IV STAT PRN; Protocol PRN Reason: Hypoglycemia Protocol Dextrose (Glutose 15) 0 gm PO ONCE PRN; Protocol PRN Reason: Hypoglycemia Protocol Epoetin Etienne (Procrit) 4,000 unit IV TTS [facility] Last Admin: 06/04/17 10:08 Dose: 4,000 unit Epoetin Etienne (Procrit) 10,000 unit IV TTS [facility] Last Admin: 06/04/17 10:08 Dose: 10,000 unit Ergocalciferol (Drisdol 50,000 Intl Units Cap) 1 cap PO Q7D [facility] Last Admin: 06/04/17 13:40 Dose: 1 cap Famotidine (Pepcid) 20 mg PO BID [facility] Last Admin: 06/04/17 13:40 Dose: 20 mg Ferrous Gluconate (Fergon) 324 mg PO TID [facility] Last Admin: 06/03/17 17:46 Dose: 324 mg Fluoxetine HCl (Prozac) 20 mg PO DAILY [facility] Last Admin: 06/03/17 12:37 Dose: Not Given Heparin Sodium (Porcine) (Heparin) 2,000 units IVP TTS [facility] Stop: 06/06/17 10:01 Last Admin: 06/04/17 09:52 Dose: 2,000 units Hydralazine HCl (Apresoline) 25 mg PO Q4 PRN PRN Reason: Other Last Admin: 05/28/17 05:44 Dose: 25 mg Cefazolin Sodium/Dextrose (Ancef Iv 2 Gm Duplex) 1 gm in 50 mls @ 100 mls/hr IVPB TTS [facility] Last Admin: 06/04/17 14:56 Dose: 100 mls/hr Insulin Aspart (Novolog) 0 unit SC ACHS [facility] PRN Reason: Protocol Last Admin: 06/04/17 11:30 Dose: Not Given Insulin Glargine (Lantus) 10 unit SC HS [facility] Last Admin: 06/03/17 21:26 Dose: 10 unit Lactulose (Enulose) 20 gm PO HS [facility] Last Admin: 06/03/17 21:26 Dose: 20 gm Losartan Potassium (Cozaar) 50 mg PO QPM [facility] Rosuvastatin Calcium (Crestor) 10 mg PO HS [facility] Last Admin: 06/03/17 21:26 Dose: 10 mg Sucralfate (Carafate Tab) 1 gm PO BID [facility] Last Admin: 06/04/17 13:40 Dose: 1 gm Vitamin B Complex/Vit C/Folic Acid (Nephro-Naren) 1 tab PO DAILY [facility] Last Admin: 06/04/17 13:40 Dose: 1 tab - Labs Labs: 06/03/17 06:20 06/03/17 06:20 PT 13.5 SECONDS (9.7-12.2) H 05/28/17 06:43 INR 1.2 05/28/17 06:43 APTT 40 SECONDS (21-34) H 05/28/17 06:43 - Constitutional Appears: Non-toxic, No Acute Distress, Chronically Ill - Respiratory Exam Respiratory Exam: NORMAL BREATHING PATTERN. absent: Respiratory Distress - Cardiovascular Exam Cardiovascular Exam: +S1, +S2 - Extremities Exam Additional comments: Right groin dressing clean/dry/intact - Neurological Exam Neurological Exam: Alert, Awake - Psychiatric Exam Psychiatric exam: Normal Affect, Normal Mood - Skin Skin Exam: Dry, Warm Assessment and Plan - Assessment and Plan (Free Text) Assessment: 67yo F with heel ulcer s/p aortofemoral angiogram via right groin with selective catherization of left femoral artery. pathway atherectomy of left popliteal and posterior tibial. dcb ballon angioplasty 4mm. 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 Heather Olson PGY-3
[2017-06-04] MEDS: (Lantus) Insulin Glargine, Recombinant SC SCH (22:25)
--- NOTE | 2017-06-04 22:36 | CP.PCM.PN ---
Subjective - Date & Time of Evaluation Date of Evaluation: 06/04/17 Time of Evaluation: 13:05 - Subjective Subjective: Patient seen and evaluated No cardiac events noted Physical examination - Constitutional Appears: Non-toxic, No Acute Distress - Head Exam Head Exam: NORMAL INSPECTION - Eye Exam Eye Exam: EOMI - ENT Exam ENT Exam: Mucous Membranes Moist - Respiratory Exam Respiratory Exam: Clear to Ausculation Bilateral, NORMAL BREATHING PATTERN. absent: Rales, Rhonchi, Wheezes - Cardiovascular Exam Cardiovascular Exam: REGULAR RHYTHM, +S1, +S2. absent: Gallop, Rubs, Murmur - GI/Abdominal Exam GI & Abdominal Exam: Soft, Normal Bowel Sounds. absent: Tenderness - Extremities Exam Extremities Exam: Pedal Edema Additional comments: pitting edema and venous stasis changes to mid calf b/l negative Shiloh's Warm toes b/l Right heel wrapped in clean bandage odorous feet - Neurological Exam Neurological Exam: Alert, Awake, Oriented x3 - Psychiatric Exam Psychiatric exam: Normal Affect, Normal Mood - Skin Skin Exam: Normal Color, Warm Objective - Vital Signs/Intake and Output Vital Signs (last 24 hours): Temp Pulse Resp BP Pulse Ox 98.5 F 69 20 126/78 93 L 06/04/17 15:00 06/04/17 15:00 06/04/17 15:00 06/04/17 15:00 06/04/17 15:00 Intake and Output: 06/04/17 06/05/17 18:59 06:59 Intake Total 250 Balance 250 - Medications Medications: Current Medications Acetaminophen (Tylenol 325mg Tab) 650 mg PO Q6 PRN PRN Reason: Pain, moderate (4-7) Aspirin (Aspirin Chewable) 81 mg PO DAILY [facility] Last Admin: 06/04/17 13:30 Dose: 81 mg Calcium Acetate (Phoslo) 667 mg PO TIDAC [facility] Last Admin: 06/04/17 17:29 Dose: 667 mg Carvedilol (Coreg) 3.125 mg PO BID [facility] Last Admin: 06/04/17 18:05 Dose: 3.125 mg Clopidogrel Bisulfate (Plavix) 75 mg PO DAILY [facility] Last Admin: 06/04/17 13:40 Dose: 75 mg Dextrose (Dextrose 50% Inj) 0 ml IV STAT PRN; Protocol PRN Reason: Hypoglycemia Protocol Dextrose (Glutose 15) 0 gm PO ONCE PRN; Protocol PRN Reason: Hypoglycemia Protocol Epoetin Etienne (Procrit) 4,000 unit IV TTS [facility] Last Admin: 06/04/17 10:08 Dose: 4,000 unit Epoetin Etienne (Procrit) 10,000 unit IV TTS [facility] Last Admin: 06/04/17 10:08 Dose: 10,000 unit Ergocalciferol (Drisdol 50,000 Intl Units Cap) 1 cap PO Q7D [facility] Last Admin: 06/04/17 13:40 Dose: 1 cap Famotidine (Pepcid) 20 mg PO BID [facility] Last Admin: 06/04/17 18:05 Dose: 20 mg Ferrous Gluconate (Fergon) 324 mg PO TID [facility] Last Admin: 06/04/17 18:14 Dose: 324 mg Fluoxetine HCl (Prozac) 20 mg PO DAILY [facility] Last Admin: 06/03/17 12:37 Dose: Not Given Heparin Sodium (Porcine) (Heparin) 2,000 units IVP TTS [facility] Stop: 06/06/17 10:01 Last Admin: 06/04/17 09:52 Dose: 2,000 units Hydralazine HCl (Apresoline) 25 mg PO Q4 PRN PRN Reason: Other Last Admin: 05/28/17 05:44 Dose: 25 mg Cefazolin Sodium/Dextrose (Ancef Iv 2 Gm Duplex) 1 gm in 50 mls @ 100 mls/hr IVPB [facility] Last Admin: 06/04/17 14:56 Dose: 100 mls/hr Insulin Aspart (Novolog) 0 unit SC ACHS [facility] PRN Reason: Protocol Last Admin: 06/04/17 22:24 Dose: Not Given Lactulose (Enulose) 20 gm PO HS [facility] Last Admin: 06/04/17 21:33 Dose: 20 gm Losartan Potassium (Cozaar) 50 mg PO QPM [facility] Last Admin: 06/04/17 18:14 Dose: 50 mg Rosuvastatin Calcium (Crestor) 10 mg PO HS [facility] Last Admin: 06/04/17 21:32 Dose: 10 mg Sucralfate (Carafate Tab) 1 gm PO BID [facility] Last Admin: 06/04/17 18:04 Dose: 1 gm Vitamin B Complex/Vit C/Folic Acid (Nephro-Naren) 1 tab PO DAILY [facility] Last Admin: 06/04/17 13:40 Dose: 1 tab - Labs Labs: 06/03/17 06:20 06/03/17 06:20 PT 13.5 SECONDS (9.7-12.2) H 05/28/17 06:43 INR 1.2 05/28/17 06:43 APTT 40 SECONDS (21-34) H 05/28/17 06:43 Assessment and Plan - Assessment and Plan (Free Text) Assessment: (1) PVD (peripheral vascular disease) Assessment & Plan: Dr. Romero on case Status: Acute (2) Diabetic infection of right foot Assessment & Plan: IV ancef 2gram post dialysis. Status: Acute (3) Acute on chronic renal failure Assessment & Plan: Patient has a permacath in for dialysis, nephrology is onboard. Continue with dialysis, will need to find out if patient needs AV fistula. Status: Acute (4) Encephalopathy acute Assessment & Plan: Seems to be improving, MRI/MRA today, neurology onboard. Laculose 20 gm daily. Status: Acute (5) CAD (coronary artery disease) Assessment & Plan: Aspirin, plavix, and Cretor 10mg. Status: Acute (6) Systolic CHF Assessment & Plan: on Beta kam, will need to follow up with Dr. Ledesma as far medical management. per report from cath, she has a LV EF of 25%. Status: Chronic (7) Anemia Assessment & Plan: Procrit 1000 units and also PO iron. Status: Chronic (8) Diabetes Assessment & Plan: sliding scale and accu checks with hypoglycemia protocol, Lantus 20 units daily HS. Status: Chronic (9) HTN (hypertension) Assessment & Plan: Coreg 3.125gm bid, hydralazine 25mg q4 prn, and also 50mg bid, Status: Acute (10) Depression Assessment & Plan: prozac 20mg daily Status: Chronic (11) Prophylactic measure Assessment & Plan: pepcid 20mg bid, carafacte, heparin 5000 units q8h, tylenol for pain. Status: Acute
[2017-06-05 07:26] LABS: BASO # 0.1 K/uL (0.0-0.2); BASO % 0.7 % (0.0-2.0); EOS # 0.2 K/uL (0.0-0.7); EOS % 2.3 % (0.0-4.0); HEMATOCRIT 29.3 % (34.0-47.0); LYMPH # 0.8 K/uL (1.0-4.3); LYMPH % 11.5 % (20.0-40.0); MEAN CELL VOLUME 96.2 fL (81.0-99.0); MEAN CORPUSCULAR HEMOGLOBIN 29.3 pg (27.0-31.0); MEAN CORPUSCULAR HGB CONC 30.4 g/dL (33.0-37.0); MEAN PLATELET VOLUME 8.7 fL (7.2-11.7); MONO # 1.3 K/uL (0.0-0.8); MONO % 17.4 % (0.0-10.0); NRBC % 0.3 % (0.0-2.0); RED CELL DISTRIBUTION WIDTH 19.4 % (11.5-14.5); WHITE BLOOD COUNT 7.3 K/uL (4.8-10.8)
[2017-06-05] MEDS: (Novolog) Insulin Aspart, Recombinant 100 u/ml 10 ml vial SC SCH ×4 (07:38→21:48)
[2017-06-05 07:48] LABS: BILIRUBIN,TOTAL 0.6 mg/dL (0.2-1.3); CALCIUM 8.1 mg/dl (8.6-10.4); TOTAL PROTEIN 6.5 g/dL (6.3-8.3)
--- NOTE | 2017-06-05 08:55 | CP.PCM.PN ---
Subjective - Date & Time of Evaluation Date of Evaluation: 06/05/17 Time of Evaluation: 09:00 - Subjective Subjective: Dr. Denis note: Patient is seen and examined in room. She has no new complaints, no acute events overnight by nursing staff. Objective - Vital Signs/Intake and Output Vital Signs (last 24 hours): Temp Pulse Resp BP Pulse Ox 97.8 F 68 20 146/83 95 06/05/17 08:06 06/05/17 08:06 06/05/17 08:06 06/05/17 08:06 06/05/17 08:06 - Medications Medications: Current Medications Acetaminophen (Tylenol 325mg Tab) 650 mg PO Q6 PRN PRN Reason: Pain, moderate (4-7) Aspirin (Aspirin Chewable) 81 mg PO DAILY [facility] Last Admin: 06/04/17 13:30 Dose: 81 mg Calcium Acetate (Phoslo) 667 mg PO TIDAC [facility] Last Admin: 06/05/17 08:14 Dose: 667 mg Carvedilol (Coreg) 3.125 mg PO BID [facility] Last Admin: 06/04/17 18:05 Dose: 3.125 mg Clopidogrel Bisulfate (Plavix) 75 mg PO DAILY [facility] Last Admin: 06/04/17 13:40 Dose: 75 mg Dextrose (Dextrose 50% Inj) 0 ml IV STAT PRN; Protocol PRN Reason: Hypoglycemia Protocol Dextrose (Glutose 15) 0 gm PO ONCE PRN; Protocol PRN Reason: Hypoglycemia Protocol Epoetin Etienne (Procrit) 4,000 unit IV TTS [facility] Last Admin: 06/04/17 10:08 Dose: 4,000 unit Epoetin Etienne (Procrit) 10,000 unit IV TTS [facility] Last Admin: 06/04/17 10:08 Dose: 10,000 unit Ergocalciferol (Drisdol 50,000 Intl Units Cap) 1 cap PO Q7D [facility] Last Admin: 06/04/17 13:40 Dose: 1 cap Famotidine (Pepcid) 20 mg PO BID [facility] Last Admin: 06/04/17 18:05 Dose: 20 mg Ferrous Gluconate (Fergon) 324 mg PO TID [facility] Last Admin: 06/04/17 18:14 Dose: 324 mg Fluoxetine HCl (Prozac) 20 mg PO DAILY [facility] Last Admin: 06/03/17 12:37 Dose: Not Given Heparin Sodium (Porcine) (Heparin) 2,000 units IVP TTS [facility] Stop: 06/06/17 10:01 Last Admin: 06/04/17 09:52 Dose: 2,000 units Hydralazine HCl (Apresoline) 25 mg PO Q4 PRN PRN Reason: Other Last Admin: 05/28/17 05:44 Dose: 25 mg Cefazolin Sodium/Dextrose (Ancef Iv 2 Gm Duplex) 1 gm in 50 mls @ 100 mls/hr IVPB TTS [facility] Last Admin: 06/04/17 14:56 Dose: 100 mls/hr Insulin Aspart (Novolog) 0 unit SC ACHS [facility] PRN Reason: Protocol Last Admin: 06/05/17 07:38 Dose: 2 unit Lactulose (Enulose) 20 gm PO HS [facility] Last Admin: 06/04/17 21:33 Dose: 20 gm Losartan Potassium (Cozaar) 50 mg PO QPM [facility] Last Admin: 06/04/17 18:14 Dose: 50 mg Rosuvastatin Calcium (Crestor) 10 mg PO HS [facility] Last Admin: 06/04/17 21:32 Dose: 10 mg Sucralfate (Carafate Tab) 1 gm PO BID [facility] Last Admin: 06/04/17 18:04 Dose: 1 gm Vitamin B Complex/Vit C/Folic Acid (Nephro-Naren) 1 tab PO DAILY [facility] Last Admin: 06/04/17 13:40 Dose: 1 tab - Labs Labs: 06/05/17 07:10 06/05/17 07:10 PT 13.5 SECONDS (9.7-12.2) H 05/28/17 06:43 INR 1.2 05/28/17 06:43 APTT 40 SECONDS (21-34) H 05/28/17 06:43 - Constitutional Appears: Non-toxic, No Acute Distress - Eye Exam Eye Exam: Normal appearance - Respiratory Exam Respiratory Exam: Clear to Ausculation Bilateral. absent: Rhonchi, Wheezes - Cardiovascular Exam Cardiovascular Exam: REGULAR RHYTHM, RRR, +S1, +S2. absent: Gallop, Rubs - GI/Abdominal Exam GI & Abdominal Exam: Soft, Normal Bowel Sounds. absent: Tenderness - Extremities Exam Extremities Exam: Normal Inspection. absent: Pedal Edema - Back Exam Back Exam: NORMAL INSPECTION - Psychiatric Exam Psychiatric exam: Normal Affect, Normal Mood Assessment and Plan - Assessment and Plan (Free Text) Assessment: UPPER EXTREMITY DVT ON THE RIGHT 06/05: Started on Heparin drip, will need oral coaguation on discharge. PVD (peripheral vascular disease) 06/05: S/P angioplasty no further intervention on this problem. S/P angiography and angioplasty LLE. No further intervention at this point per surgery team. Diabetic infection of right foot; chronic DM uncontrolled 06/05: Still on IV Ancef post dialysis. IV ancef 2gram post dialysis Diabetes is uncontrolled A1C 10.1 sliding scale and accu checks with hypoglycemia protocol, Lantus 20 units daily HS. Pending dialysis placement. Patient will be switched to Vancomycin and Gentamycin upon discharge. Acute on chronic renal failure 05/05: Vein mapping showed an upper right extremity DVT. She may go for AV fistula later on this weak on the opposite arm. Patient has a permacath in for dialysis nephrology is onboard. Pending dialysis placement. Patient will be switched to Vancomycin and Gentamycin upon discharge. Encephalopathy; resolving Seems to be improving neurology onboard; appreciate recs Laculose 20 gm daily. CAD (coronary artery disease) Patient went for Cath with Dr. Ledesma please see his note, she will need PCI which can be done after her leg surgery with Dr. Ledesma. Aspirin, Plavix, and Crestor 10mg. Systolic CHF; acute on chronic also 2/2 to noncompliance on Beta kam will need to follow up with Dr. Ledesma as far medical management. per report from cath, she has a LV EF of 25% patient is on sudden cardiac protocol here with monitor Anemia; chronic Assessment & Plan: Procrit 1000 units and also PO iron. HTN (hypertension); chronic uncontrolled Assessment & Plan: Coreg 3.125gm bid, Hydralazine 25mg q4 prn, and also 50mg bid, Depression;chronic Prozac 20mg daily Patient is not suicidal however very internally preoccupied Prophylactic measure 05/05: Changed to heparin drip due to upper extremity DVT. Pepcid 20mg bid, carafate, heparin 5000 units q8h, Tylenol for pain. Pending dialysis placement. All management as per Dr. Denis
[2017-06-05] MEDS: Multivitamin Vitamin B Complex (Nephro-Vite) Tab PO SCH (10:38)
--- NOTE | 2017-06-05 10:48 | CP.PCM.PN ---
Subjective - Date & Time of Evaluation Date of Evaluation: 06/05/17 Time of Evaluation: 10:44 - Subjective Subjective: Ms. Taveras was seen and examined at the bedside. She is alert, oriented to place and time. She thinks the president is Jeremy. She is able to follow all simple commands. She denies any headache, dizziness, lightheadedness, blurred vision, numbness, nausea. or vomiting. There was no untoward events overnight. Objective - Vital Signs/Intake and Output Vital Signs (last 24 hours): Temp Pulse Resp BP Pulse Ox 97.8 F 68 20 146/83 95 06/05/17 08:06 06/05/17 08:06 06/05/17 08:06 06/05/17 08:06 06/05/17 08:06 - Medications Medications: Current Medications Acetaminophen (Tylenol 325mg Tab) 650 mg PO Q6 PRN PRN Reason: Pain, moderate (4-7) Aspirin (Aspirin Chewable) 81 mg PO DAILY [facility] Last Admin: 06/05/17 10:38 Dose: 81 mg Calcium Acetate (Phoslo) 667 mg PO TIDAC [facility] Last Admin: 06/05/17 08:14 Dose: 667 mg Carvedilol (Coreg) 3.125 mg PO BID [facility] Last Admin: 06/05/17 10:38 Dose: 3.125 mg Clopidogrel Bisulfate (Plavix) 75 mg PO DAILY [facility] Last Admin: 06/05/17 10:36 Dose: 75 mg Dextrose (Dextrose 50% Inj) 0 ml IV STAT PRN; Protocol PRN Reason: Hypoglycemia Protocol Dextrose (Glutose 15) 0 gm PO ONCE PRN; Protocol PRN Reason: Hypoglycemia Protocol Epoetin Etienne (Procrit) 4,000 unit IV TTS [facility] Last Admin: 06/04/17 10:08 Dose: 4,000 unit Epoetin Etienne (Procrit) 10,000 unit IV TTS [facility] Last Admin: 06/04/17 10:08 Dose: 10,000 unit Ergocalciferol (Drisdol 50,000 Intl Units Cap) 1 cap PO Q7D [facility] Last Admin: 06/04/17 13:40 Dose: 1 cap Famotidine (Pepcid) 20 mg PO BID [facility] Last Admin: 06/05/17 10:38 Dose: 20 mg Ferrous Gluconate (Fergon) 324 mg PO TID [facility] Last Admin: 06/05/17 10:37 Dose: 324 mg Fluoxetine HCl (Prozac) 20 mg PO DAILY [facility] Last Admin: 06/05/17 10:37 Dose: 20 mg Heparin Sodium (Porcine) (Heparin) 2,000 units IVP TTS [facility] Stop: 06/06/17 10:01 Last Admin: 06/04/17 09:52 Dose: 2,000 units Hydralazine HCl (Apresoline) 25 mg PO Q4 PRN PRN Reason: Other Last Admin: 05/28/17 05:44 Dose: 25 mg Cefazolin Sodium/Dextrose (Ancef Iv 2 Gm Duplex) 1 gm in 50 mls @ 100 mls/hr IVPB TTS [facility] Last Admin: 06/04/17 14:56 Dose: 100 mls/hr Insulin Aspart (Novolog) 0 unit SC ACHS [facility] PRN Reason: Protocol Last Admin: 06/05/17 07:38 Dose: 2 unit Lactulose (Enulose) 20 gm PO HS [facility] Last Admin: 06/04/17 21:33 Dose: 20 gm Losartan Potassium (Cozaar) 50 mg PO QPM [facility] Last Admin: 06/04/17 18:14 Dose: 50 mg Rosuvastatin Calcium (Crestor) 10 mg PO HS [facility] Last Admin: 06/04/17 21:32 Dose: 10 mg Sucralfate (Carafate Tab) 1 gm PO BID [facility] Last Admin: 06/05/17 10:37 Dose: 1 gm Vitamin B Complex/Vit C/Folic Acid (Nephro-Naren) 1 tab PO DAILY [facility] Last Admin: 06/05/17 10:38 Dose: 1 tab - Labs Labs: 06/05/17 07:10 06/05/17 07:10 PT 13.5 SECONDS (9.7-12.2) H 05/28/17 06:43 INR 1.2 05/28/17 06:43 APTT 40 SECONDS (21-34) H 05/28/17 06:43 - Constitutional Appears: No Acute Distress - Head Exam Head Exam: ATRAUMATIC - Neurological Exam Neurological Exam: Alert, Awake Neuro motor strength exam: Left Upper Extremity: 5, Right Upper Extremity: 5, Left Lower Extremity: 5, Right Lower Extremity: 5 Additional comments: Neurological unchanged from previous examination. Assessment and Plan (1) Encephalopathy acute Assessment & Plan: Case discussed with Dr. Devine, continue all current medical, physical, and occupational therapies. Status: Acute
--- NOTE | 2017-06-05 12:41 | VASCLAB ---
PROCEDURE: Upper Extremity Venous Duplex Exam HISTORY: for AV fistula PRIORS: None. TECHNIQUE: Bilateral upper extremity, internal jugular, subclavian, axillary, brachial, ulnar, radial, basilic and upper cephalic veins were evaluated. Flow was assessed with color Doppler, compressibility, assessment of phasic flow and augmentation response. Report prepared by BOBBY Servin, RVT FINDINGS: RIGHT: 1. Internal Jugular Vein: Compressibility - Partial: Thrombus - Acute : Flow - Absent 2. Subclavian Vein:Compressibility - Fully compressible: Thrombus - None : Flow - Phasic 3. Axillary Vein: Compressibility - Fully compressible: Thrombus - None 4. Brachial Vein: Compressibility - Fully compressible: Thrombus - None 5. Ulnar Vein:Compressibility - Fully compressible: Thrombus - None 6. Radial Vein:Compressibility - Fully compressible: Thrombus - None 7. Cephalic Vein: Compressibility - Fully compressible: thrombus - None 7.1. Upper Arm: Proximal Diameter: 0.40cm. Mid Diameter: 0.36cm. Distal Diameter: 0.30cm. Antecubital Fossa: 0.40cm. 7.2. Forearm: Proximal Diameter: 0.36cm. Mid Diameter:0.41cm. Distal Diameter: 0.38cm 8. Basilic Vein:Compressibility - Fully compressible: thrombus - None 8.1. Upper Arm:Proximal Diameter: 0.60cm. Mid Diameter: 0.48cm. Distal Diameter: 0.45cm. Antecubital Fossa: 0.46cm. 8.2. Forearm: Proximal Diameter: 0.36cm. Mid Diameter:0.40cm. Distal Diameter: 0.31cm. LEFT: 1. Internal Jugular Vein: Compressibility - Fully compressible: Thrombus - None : Flow - Phasic 2. Subclavian Vein:Compressibility - Fully compressible: Thrombus - None : Flow - Phasic 3. Axillary Vein: Compressibility - Fully compressible: Thrombus - None 4. Brachial Vein: Compressibility - Fully compressible: Thrombus - None 5. Ulnar Vein:Compressibility - Fully compressible: Thrombus - None 6. Radial Vein:Compressibility - Fully compressible: Thrombus - None 7. Cephalic Vein: Compressibility - Fully compressible: thrombus - None 7.1. Upper Arm: Proximal Diameter: 0.42cm. Mid Diameter: 0.40cm. Distal Diameter: 0.33cm. Antecubital Fossa: 0.51cm. 7.2. Forearm: Proximal Diameter: 0.43cm. Mid Diameter:0.37cm. Distal Diameter: 0.44cm 8. Basilic Vein:Compressibility - Fully compressible: thrombus - None 8.1. Upper Arm:Proximal Diameter: 0.66cm. Mid Diameter: 0.56cm. Distal Diameter: 0.46cm. Antecubital Fossa: 0.60cm. 8.2. Forearm: Proximal Diameter: 0.41cm. Mid Diameter:0.36cm. Distal Diameter: 0.38cm. OTHER FINDINGS: CLARIBEL Ortez notified about the findings. IMPRESSION: Right: Acute deep vein thrombosis noted tin the right jugular vein. Diameter measurements of the right cephalic vein is measured between 0.30 cm and 0.41 cm and basilic vein is measured between 0.31 cm and 0.60 cm. Left: Diameter measurements of the left cephalic vein is measured between 0.33 cm and 0.44 cm and basilic vein is measured between 0.36cm and 0.66cm.
--- NOTE | 2017-06-05 14:47 | CP.PCM.PN ---
Subjective - Date & Time of Evaluation Date of Evaluation: 06/05/17 Time of Evaluation: 14:45 - Subjective Subjective: Follow up Nephrology Consultation: Assessment: stable Acute Kidney Injury likely contrast induced nephropathy: now on HD since ? severe allergic reaction to polysulphone dialyzer Non-healing ulcer on heel with celluliits Diabetic chronic Kidney Disease (E11.22) Hypertensive Chronic Kidney Disease (I12.9) Chronic Kidney Disease (N18.4) Stage 4 with 500 mg proteinuria (R80.9) possibly due to DM and or HTN Anemia (D64.9), Hyperphosphatemia (E83.39), HTN (I12.9) systolic CHF, Morbid obesity, PVD, depression, CAD Hallucinations Plan plan for HD tomorrow with non-polysulphone Glover Exeltra dialyzer. she tolerating HD well with this dialyzer. check labs with HD as much possible. no evidence of significant renal reovery yet. consider psych consult continue to monitor for renal recovery and I/O closely. Hypertension control with meds as ordered. continue with coreg, added losartan Increased epogen 48694 unit with HD and continue with phoslo continue with vit D and iron supplementation ID, cardiology and vascular surgery following pt with advanced CKD 4 at baseline, vascular can plan for AV access placement from renal perspective Dose meds/antibiotics for reduced GFR <10. Avoid fleets enema/magnesium based laxatives. Avoid nephrotoxins/NSAIDs Glycemic control Further work up/management as per primary team Thanks for allowing me to participate in care of your patient. Will follow patient with you. Please call if any Qs. d/w team Dr Juan Torres Office: [phone] HPI: Pt is a 67 y/o F with hx of diabetes Mellitus hypertension, CHF, chronic anemia, hyperphos, DVT on coumadin, drpression, obesity, dementia, CVA, CKD ? stage and a fdc resident at [facility] presented with complaints of non healing ulcer Rt heel. [employer] service used for creole interpretation. ROS: She Denies chest pain, palpitation, shortness of breath. has urinary complaints as decreased urine output. says, had animals in room last night, reports them as snakes Physical Examination: General Appearance: Comfortable, in no acute respiratory distress, co-operative . obese Vitals reviewed and noted as below Lungs: Normal respiratory rate/effort. Breath sounds bilateral equal and clear anteriorly Heart: Normal rate. s1s2 normal. No rub or gallop. Extremities: 1-2+ edema. No varicose veins. has chronic venous stasis changes. both feets in dressings. Neurological: Patient is alert, awake and not oriented to person, place or time. ? has dementia. No focal deficit. Strength bilateral appropriate and equal Skin: Warm and dry. Normal turgor. No rash. Palpitation: Normal elasticity for age Abdomen: Abdomen is soft. Bowel sounds +. There is no abdominal tenderness, no guarding/rigidity no organomegaly. she is obese MSK: no joint tenderness or swelling. Digits and nails normal, no deformity : kidney or bladder not palpable Access: permacath Rt IJ Labs/imaging/EKG reviewed. Past medical history, past surgical history, family history, social history, allergy reviewed and noted as below Family hx: no hx of CKD. Rest non-contributory Objective - Vital Signs/Intake and Output Vital Signs (last 24 hours): Temp Pulse Resp BP Pulse Ox 97.8 F 68 20 146/83 95 06/05/17 08:06 06/05/17 08:06 06/05/17 08:06 06/05/17 08:06 06/05/17 08:06 - Medications Medications: Current Medications Acetaminophen (Tylenol 325mg Tab) 650 mg PO Q6 PRN PRN Reason: Pain, moderate (4-7) Aspirin (Aspirin Chewable) 81 mg PO DAILY [facility] Last Admin: 06/05/17 10:38 Dose: 81 mg Calcium Acetate (Phoslo) 667 mg PO TIDAC [facility] Last Admin: 06/05/17 12:25 Dose: 667 mg Carvedilol (Coreg) 3.125 mg PO BID [facility] Last Admin: 06/05/17 10:38 Dose: 3.125 mg Clopidogrel Bisulfate (Plavix) 75 mg PO DAILY [facility] Last Admin: 06/05/17 10:36 Dose: 75 mg Dextrose (Dextrose 50% Inj) 0 ml IV STAT PRN; Protocol PRN Reason: Hypoglycemia Protocol Dextrose (Glutose 15) 0 gm PO ONCE PRN; Protocol PRN Reason: Hypoglycemia Protocol Epoetin Etienne (Procrit) 4,000 unit IV TTS [facility] Last Admin: 06/04/17 10:08 Dose: 4,000 unit Epoetin Etienne (Procrit) 10,000 unit IV TTS [facility] Last Admin: 06/04/17 10:08 Dose: 10,000 unit Ergocalciferol (Drisdol 50,000 Intl Units Cap) 1 cap PO Q7D [facility] Last Admin: 06/04/17 13:40 Dose: 1 cap Famotidine (Pepcid) 20 mg PO BID [facility] Last Admin: 06/05/17 10:38 Dose: 20 mg Ferrous Gluconate (Fergon) 324 mg PO TID [facility] Last Admin: 06/05/17 13:44 Dose: 324 mg Fluoxetine HCl (Prozac) 20 mg PO DAILY [facility] Last Admin: 06/05/17 10:37 Dose: 20 mg Heparin Sodium (Porcine) (Heparin) 2,000 units IVP TTS [facility] Stop: 06/06/17 10:01 Last Admin: 06/04/17 09:52 Dose: 2,000 units Hydralazine HCl (Apresoline) 25 mg PO Q4 PRN PRN Reason: Other Last Admin: 05/28/17 05:44 Dose: 25 mg Cefazolin Sodium/Dextrose (Ancef Iv 2 Gm Duplex) 1 gm in 50 mls @ 100 mls/hr IVPB TTS [facility] Last Admin: 06/04/17 14:56 Dose: 100 mls/hr Insulin Aspart (Novolog) 0 unit SC ACHS [facility] PRN Reason: Protocol Last Admin: 06/05/17 12:24 Dose: 2 unit Lactulose (Enulose) 20 gm PO HS [facility] Last Admin: 06/04/17 21:33 Dose: 20 gm Losartan Potassium (Cozaar) 50 mg PO QPM [facility] Last Admin: 06/04/17 18:14 Dose: 50 mg Rosuvastatin Calcium (Crestor) 10 mg PO HS [facility] Last Admin: 06/04/17 21:32 Dose: 10 mg Sucralfate (Carafate Tab) 1 gm PO BID [facility] Last Admin: 06/05/17 10:37 Dose: 1 gm Vitamin B Complex/Vit C/Folic Acid (Nephro-Naren) 1 tab PO DAILY [facility] Last Admin: 06/05/17 10:38 Dose: 1 tab - Labs Labs: 06/05/17 07:10 06/05/17 07:10 PT 13.5 SECONDS (9.7-12.2) H 05/28/17 06:43 INR 1.2 05/28/17 06:43 APTT 40 SECONDS (21-34) H 05/28/17 06:43
--- NOTE | 2017-06-05 14:54 | CP.PCM.PN ---
Subjective - Date & Time of Evaluation Date of Evaluation: 06/05/17 Time of Evaluation: 12:06 - Subjective Subjective: UPON MORNING ROUNDS IT WAS DISCUSSED THAT PT IS A NEW HD PT. SHE IS PENDING HD SLOT. PT REQUIRES A HEP B CORE TOTAL AB TO BE DRAWN AND SENT PRIOR TO BEING GIVEN HD SLOT. I ORDERED THIS TEST; DOWNTIME FORM SLIP COMPLETED AND GIVEN TO PRIMARY RN ORESTES. ORESTES AWARE THAT THE LAB NEEDS TO DRAW THIS DURING NEXT ROUNDS THIS IS A SEND OUT. I HAVE ALSO NOTIFIED CM PAT ABOUT THIS BEING ORDERED TODAY. NO FURTHER ORDERS. Objective - Vital Signs/Intake and Output Vital Signs (last 24 hours): Temp Pulse Resp BP Pulse Ox 97.8 F 68 20 146/83 95 06/05/17 08:06 06/05/17 08:06 06/05/17 08:06 06/05/17 08:06 06/05/17 08:06 - Medications Medications: Current Medications Acetaminophen (Tylenol 325mg Tab) 650 mg PO Q6 PRN PRN Reason: Pain, moderate (4-7) Aspirin (Aspirin Chewable) 81 mg PO DAILY [facility] Last Admin: 06/05/17 10:38 Dose: 81 mg Calcium Acetate (Phoslo) 667 mg PO TIDAC [facility] Last Admin: 06/05/17 12:25 Dose: 667 mg Carvedilol (Coreg) 3.125 mg PO BID [facility] Last Admin: 06/05/17 10:38 Dose: 3.125 mg Clopidogrel Bisulfate (Plavix) 75 mg PO DAILY [facility] Last Admin: 06/05/17 10:36 Dose: 75 mg Dextrose (Dextrose 50% Inj) 0 ml IV STAT PRN; Protocol PRN Reason: Hypoglycemia Protocol Dextrose (Glutose 15) 0 gm PO ONCE PRN; Protocol PRN Reason: Hypoglycemia Protocol Epoetin Etienne (Procrit) 10,000 unit IV TTS [facility] Last Admin: 06/04/17 10:08 Dose: 10,000 unit Epoetin Etienne (Procrit) 6,000 unit IV TTS [facility] Ergocalciferol (Drisdol 50,000 Intl Units Cap) 1 cap PO Q7D [facility] Last Admin: 06/04/17 13:40 Dose: 1 cap Famotidine (Pepcid) 20 mg PO BID [facility] Last Admin: 06/05/17 10:38 Dose: 20 mg Ferrous Gluconate (Fergon) 324 mg PO TID [facility] Last Admin: 06/05/17 13:44 Dose: 324 mg Fluoxetine HCl (Prozac) 20 mg PO DAILY [facility] Last Admin: 06/05/17 10:37 Dose: 20 mg Heparin Sodium (Porcine) (Heparin) 2,000 units IVP TTS [facility] Stop: 06/06/17 10:01 Last Admin: 06/04/17 09:52 Dose: 2,000 units Hydralazine HCl (Apresoline) 25 mg PO Q4 PRN PRN Reason: Other Last Admin: 05/28/17 05:44 Dose: 25 mg Cefazolin Sodium/Dextrose (Ancef Iv 2 Gm Duplex) 1 gm in 50 mls @ 100 mls/hr IVPB TTS [facility] Last Admin: 06/04/17 14:56 Dose: 100 mls/hr Insulin Aspart (Novolog) 0 unit SC ACHS [facility] PRN Reason: Protocol Last Admin: 06/05/17 12:24 Dose: 2 unit Lactulose (Enulose) 20 gm PO HS [facility] Last Admin: 06/04/17 21:33 Dose: 20 gm Losartan Potassium (Cozaar) 50 mg PO QPM [facility] Last Admin: 06/04/17 18:14 Dose: 50 mg Rosuvastatin Calcium (Crestor) 10 mg PO HS [facility] Last Admin: 06/04/17 21:32 Dose: 10 mg Sucralfate (Carafate Tab) 1 gm PO BID [facility] Last Admin: 06/05/17 10:37 Dose: 1 gm Vitamin B Complex/Vit C/Folic Acid (Nephro-Naren) 1 tab PO DAILY [facility] Last Admin: 06/05/17 10:38 Dose: 1 tab - Labs Labs: 06/05/17 07:10 06/05/17 07:10 PT 13.5 SECONDS (9.7-12.2) H 05/28/17 06:43 INR 1.2 05/28/17 06:43 APTT 40 SECONDS (21-34) H 05/28/17 06:43
--- NOTE | 2017-06-05 16:43 | CP.PCM.PN ---
Subjective - Date & Time of Evaluation Date of Evaluation: 06/05/17 Time of Evaluation: 08:00 - Subjective Subjective: weak/ lethargic Objective - Vital Signs/Intake and Output Vital Signs (last 24 hours): Temp Pulse Resp BP Pulse Ox 97.8 F 68 20 146/83 95 06/05/17 08:06 06/05/17 08:06 06/05/17 08:06 06/05/17 08:06 06/05/17 08:06 Intake and Output: 06/05/17 06/05/17 06:59 18:59 Intake Total 250 Balance 250 - Medications Medications: Current Medications Acetaminophen (Tylenol 325mg Tab) 650 mg PO Q6 PRN PRN Reason: Pain, moderate (4-7) Aspirin (Aspirin Chewable) 81 mg PO DAILY [facility] Last Admin: 06/05/17 10:38 Dose: 81 mg Calcium Acetate (Phoslo) 667 mg PO TIDAC [facility] Last Admin: 06/05/17 12:25 Dose: 667 mg Carvedilol (Coreg) 3.125 mg PO BID [facility] Last Admin: 06/05/17 10:38 Dose: 3.125 mg Clopidogrel Bisulfate (Plavix) 75 mg PO DAILY [facility] Last Admin: 06/05/17 10:36 Dose: 75 mg Dextrose (Dextrose 50% Inj) 0 ml IV STAT PRN; Protocol PRN Reason: Hypoglycemia Protocol Dextrose (Glutose 15) 0 gm PO ONCE PRN; Protocol PRN Reason: Hypoglycemia Protocol Epoetin Etienne (Procrit) 10,000 unit IV TTS [facility] Last Admin: 06/04/17 10:08 Dose: 10,000 unit Epoetin Etienne (Procrit) 6,000 unit IV TTS [facility] Ergocalciferol (Drisdol 50,000 Intl Units Cap) 1 cap PO Q7D [facility] Last Admin: 06/04/17 13:40 Dose: 1 cap Famotidine (Pepcid) 20 mg PO BID [facility] Last Admin: 06/05/17 10:38 Dose: 20 mg Ferrous Gluconate (Fergon) 324 mg PO TID [facility] Last Admin: 06/05/17 13:44 Dose: 324 mg Fluoxetine HCl (Prozac) 20 mg PO DAILY [facility] Last Admin: 06/05/17 10:37 Dose: 20 mg Heparin Sodium (Porcine) (Heparin) 2,000 units IVP TTS [facility] Stop: 06/06/17 10:01 Last Admin: 06/04/17 09:52 Dose: 2,000 units Hydralazine HCl (Apresoline) 25 mg PO Q4 PRN PRN Reason: Other Last Admin: 05/28/17 05:44 Dose: 25 mg Cefazolin Sodium/Dextrose (Ancef Iv 2 Gm Duplex) 1 gm in 50 mls @ 100 mls/hr IVPB TTS [facility] Last Admin: 06/04/17 14:56 Dose: 100 mls/hr Insulin Aspart (Novolog) 0 unit SC ACHS [facility] PRN Reason: Protocol Last Admin: 06/05/17 12:24 Dose: 2 unit Lactulose (Enulose) 20 gm PO HS [facility] Last Admin: 06/04/17 21:33 Dose: 20 gm Losartan Potassium (Cozaar) 50 mg PO QPM [facility] Last Admin: 06/04/17 18:14 Dose: 50 mg Rosuvastatin Calcium (Crestor) 10 mg PO HS [facility] Last Admin: 06/04/17 21:32 Dose: 10 mg Sucralfate (Carafate Tab) 1 gm PO BID [facility] Last Admin: 06/05/17 10:37 Dose: 1 gm Vitamin B Complex/Vit C/Folic Acid (Nephro-Naren) 1 tab PO DAILY [facility] Last Admin: 06/05/17 10:38 Dose: 1 tab - Labs Labs: 06/05/17 07:10 06/05/17 07:10 PT 13.5 SECONDS (9.7-12.2) H 05/28/17 06:43 INR 1.2 05/28/17 06:43 APTT 40 SECONDS (21-34) H 05/28/17 06:43 - Constitutional Appears: Non-toxic, Chronically Ill - Head Exam Head Exam: NORMOCEPHALIC - Eye Exam Eye Exam: absent: Scleral icterus - ENT Exam ENT Exam: Mucous Membranes Dry - Neck Exam Neck Exam: absent: Lymphadenopathy - Respiratory Exam Respiratory Exam: Decreased Breath Sounds - Cardiovascular Exam Cardiovascular Exam: REGULAR RHYTHM - GI/Abdominal Exam GI & Abdominal Exam: Distended, Soft - Rectal Exam Rectal Exam: Deferred - Exam Exam: NORMAL INSPECTION - Extremities Exam Extremities Exam: absent: Pedal Edema - Back Exam Back Exam: absent: CVA tenderness (L), CVA tenderness (R) - Neurological Exam Neurological Exam: Alert, Altered, Awake - Psychiatric Exam Psychiatric exam: Depressed Assessment and Plan (1) Acute on chronic renal failure Status: Acute (2) Dehydration Status: Acute (3) Diabetic infection of right foot Status: Acute (4) Anemia Status: Chronic (5) Chronic heel ulcer Status: Acute
--- NOTE | 2017-06-05 16:43 | CP.PCM.PN ---
Subjective - Date & Time of Evaluation Date of Evaluation: 06/05/17 Time of Evaluation: 10:00 - Subjective Subjective: VASCULAR SURGERY PROGRESS NOTE FOR DR. UGALDE Patient currently in vein mapping US. Patient had dialysis yesterday. Objective - Vital Signs/Intake and Output Vital Signs (last 24 hours): Temp Pulse Resp BP Pulse Ox 97.8 F 68 20 146/83 95 06/05/17 08:06 06/05/17 08:06 06/05/17 08:06 06/05/17 08:06 06/05/17 08:06 Intake and Output: 06/05/17 06/05/17 06:59 18:59 Intake Total 250 Balance 250 - Medications Medications: Current Medications Acetaminophen (Tylenol 325mg Tab) 650 mg PO Q6 PRN PRN Reason: Pain, moderate (4-7) Aspirin (Aspirin Chewable) 81 mg PO DAILY [facility] Last Admin: 06/05/17 10:38 Dose: 81 mg Calcium Acetate (Phoslo) 667 mg PO TIDAC [facility] Last Admin: 06/05/17 12:25 Dose: 667 mg Carvedilol (Coreg) 3.125 mg PO BID [facility] Last Admin: 06/05/17 10:38 Dose: 3.125 mg Clopidogrel Bisulfate (Plavix) 75 mg PO DAILY [facility] Last Admin: 06/05/17 10:36 Dose: 75 mg Dextrose (Dextrose 50% Inj) 0 ml IV STAT PRN; Protocol PRN Reason: Hypoglycemia Protocol Dextrose (Glutose 15) 0 gm PO ONCE PRN; Protocol PRN Reason: Hypoglycemia Protocol Epoetin Etienne (Procrit) 10,000 unit IV TTS [facility] Last Admin: 06/04/17 10:08 Dose: 10,000 unit Epoetin Etienne (Procrit) 6,000 unit IV TTS [facility] Ergocalciferol (Drisdol 50,000 Intl Units Cap) 1 cap PO Q7D [facility] Last Admin: 06/04/17 13:40 Dose: 1 cap Famotidine (Pepcid) 20 mg PO BID [facility] Last Admin: 06/05/17 10:38 Dose: 20 mg Ferrous Gluconate (Fergon) 324 mg PO TID [facility] Last Admin: 06/05/17 13:44 Dose: 324 mg Fluoxetine HCl (Prozac) 20 mg PO DAILY [facility] Last Admin: 06/05/17 10:37 Dose: 20 mg Heparin Sodium (Porcine) (Heparin) 2,000 units IVP TTS [facility] Stop: 06/06/17 10:01 Last Admin: 06/04/17 09:52 Dose: 2,000 units Hydralazine HCl (Apresoline) 25 mg PO Q4 PRN PRN Reason: Other Last Admin: 05/28/17 05:44 Dose: 25 mg Cefazolin Sodium/Dextrose (Ancef Iv 2 Gm Duplex) 1 gm in 50 mls @ 100 mls/hr IVPB TTS [facility] Last Admin: 06/04/17 14:56 Dose: 100 mls/hr Insulin Aspart (Novolog) 0 unit SC ACHS [facility] PRN Reason: Protocol Last Admin: 06/05/17 12:24 Dose: 2 unit Lactulose (Enulose) 20 gm PO HS [facility] Last Admin: 06/04/17 21:33 Dose: 20 gm Losartan Potassium (Cozaar) 50 mg PO QPM [facility] Last Admin: 06/04/17 18:14 Dose: 50 mg Rosuvastatin Calcium (Crestor) 10 mg PO HS [facility] Last Admin: 06/04/17 21:32 Dose: 10 mg Sucralfate (Carafate Tab) 1 gm PO BID [facility] Last Admin: 06/05/17 10:37 Dose: 1 gm Vitamin B Complex/Vit C/Folic Acid (Nephro-Naren) 1 tab PO DAILY [facility] Last Admin: 06/05/17 10:38 Dose: 1 tab - Labs Labs: 06/05/17 07:10 06/05/17 07:10 PT 13.5 SECONDS (9.7-12.2) H 05/28/17 06:43 INR 1.2 05/28/17 06:43 APTT 40 SECONDS (21-34) H 05/28/17 06:43 Assessment and Plan - Assessment and Plan (Free Text) Assessment: 67yo F with heel ulcer s/p aortofemoral angiogram via right groin with selective catherization of left femoral artery. pathway atherectomy of left popliteal and posterior tibial. dcb ballon angioplasty 4mm. perclose right POD #2 and POD#13 of permacath placement - No amputation necessary - Vein mapping done for possible AV access, DVT seen in right jugular vein - pt started on Heparin drip - Possible OR Saturday for AV access - Discussed plan with Dr. Heather Olson PGY-3
[2017-06-05] MEDS ORDERED: Heparin25000 units/250ml 1/2NS 25,000 UNITS/250 ML BAG IV PRN (16:50)
[2017-06-06 06:43] LABS: HEMATOCRIT 28.2 % (34.0-47.0); MEAN CELL VOLUME 95.1 fL (81.0-99.0); MEAN CORPUSCULAR HEMOGLOBIN 29.2 pg (27.0-31.0); MEAN CORPUSCULAR HGB CONC 30.7 g/dL (33.0-37.0); MEAN PLATELET VOLUME 8.7 fL (7.2-11.7); PLATELET COUNT 219 K/uL (130-400); RED CELL DISTRIBUTION WIDTH 19.9 % (11.5-14.5); WHITE BLOOD COUNT 7.9 K/uL (4.8-10.8)
[2017-06-06] MEDS ORDERED: EPOETIN ALFA 4,000 UNIT/ML ML Dialysis IV SCH (07:00)
[2017-06-06] MEDS: (Novolog) Insulin Aspart, Recombinant 100 u/ml 10 ml vial SC SCH ×4 (08:07→21:19)
[2017-06-06] MEDS: Multivitamin Vitamin B Complex (Nephro-Vite) Tab PO SCH (09:00)
[2017-06-06] MEDS: Heparin25000 units/250ml 1/2NS 25,000 UNITS/250 ML BAG IV PRN ×3 (09:36→19:29)
--- NOTE | 2017-06-06 09:46 | CP.PCM.PN ---
Subjective - Date & Time of Evaluation Date of Evaluation: 06/06/17 Time of Evaluation: 09:43 - Subjective Subjective: Ms. Taveras was seen and examined at the bedside. She ia alert, oriented to place and time. She denies any pain, dizziness, lightheadedness, nausea, or vomiting. There was no untoward events overnight. Objective - Vital Signs/Intake and Output Vital Signs (last 24 hours): Temp Pulse Resp BP Pulse Ox 98.5 F 60 20 139/82 96 06/06/17 08:07 06/06/17 08:07 06/06/17 08:07 06/06/17 08:07 06/06/17 08:07 Intake and Output: 06/06/17 06/06/17 06:59 18:59 Intake Total 240 266.3 Balance 240 266.3 - Medications Medications: Current Medications Acetaminophen (Tylenol 325mg Tab) 650 mg PO Q6 PRN PRN Reason: Pain, moderate (4-7) Aspirin (Aspirin Chewable) 81 mg PO DAILY [facility] Last Admin: 06/06/17 09:03 Dose: 81 mg Calcium Acetate (Phoslo) 667 mg PO TIDAC [facility] Last Admin: 06/06/17 08:05 Dose: 667 mg Carvedilol (Coreg) 3.125 mg PO BID [facility] Last Admin: 06/05/17 18:32 Dose: 3.125 mg Clopidogrel Bisulfate (Plavix) 75 mg PO DAILY [facility] Last Admin: 06/06/17 09:00 Dose: 75 mg Dextrose (Dextrose 50% Inj) 0 ml IV STAT PRN; Protocol PRN Reason: Hypoglycemia Protocol Dextrose (Glutose 15) 0 gm PO ONCE PRN; Protocol PRN Reason: Hypoglycemia Protocol Epoetin Etienne (Procrit) 10,000 unit IV TTS [facility] Last Admin: 06/04/17 10:08 Dose: 10,000 unit Epoetin Etienne (Procrit) 6,000 unit IV TTS [facility] Ergocalciferol (Drisdol 50,000 Intl Units Cap) 1 cap PO Q7D [facility] Last Admin: 06/04/17 13:40 Dose: 1 cap Famotidine (Pepcid) 20 mg PO DAILY [facility] Last Admin: 06/06/17 09:42 Dose: 20 mg Ferrous Gluconate (Fergon) 324 mg PO TID [facility] Last Admin: 06/06/17 09:03 Dose: 324 mg Fluoxetine HCl (Prozac) 20 mg PO DAILY [facility] Last Admin: 06/06/17 09:02 Dose: 20 mg Heparin Sodium (Porcine) (Heparin) 2,000 units IVP TTS [facility] Stop: 06/06/17 10:01 Last Admin: 06/04/17 09:52 Dose: 2,000 units Hydralazine HCl (Apresoline) 25 mg PO Q4 PRN PRN Reason: Other Last Admin: 05/28/17 05:44 Dose: 25 mg Cefazolin Sodium/Dextrose (Ancef Iv 2 Gm Duplex) 1 gm in 50 mls @ 100 mls/hr IVPB TTS [facility] Last Admin: 06/04/17 14:56 Dose: 100 mls/hr Heparin Sodium/Sodium Chloride (Heparin 46423 Units/250ml 1/2 Normal Saline) 25 ,000 units in 250 mls @ 17.418 mls/hr IV .[id number] PRN; Protocol; 15 UNITS/KG/HR PRN Reason: ADJUST RATE PER PROTOCOL Last Admin: 06/06/17 09:36 Dose: 15 units/kg/hr, 17.418 mls/hr Insulin Aspart (Novolog) 0 unit SC ACHS [facility] PRN Reason: Protocol Last Admin: 06/06/17 08:07 Dose: Not Given Lactulose (Enulose) 20 gm PO HS [facility] Last Admin: 06/05/17 22:16 Dose: 20 gm Losartan Potassium (Cozaar) 50 mg PO QPM [facility] Last Admin: 06/05/17 18:31 Dose: 50 mg Rosuvastatin Calcium (Crestor) 10 mg PO HS [facility] Last Admin: 06/05/17 22:16 Dose: 10 mg Sucralfate (Carafate Tab) 1 gm PO BID [facility] Last Admin: 06/06/17 09:00 Dose: 1 gm Vitamin B Complex/Vit C/Folic Acid (Nephro-Naren) 1 tab PO DAILY [facility] Last Admin: 06/06/17 09:00 Dose: 1 tab - Labs Labs: 06/06/17 06:35 06/05/17 07:10 PT 13.5 SECONDS (9.7-12.2) H 05/28/17 06:43 INR 1.2 05/28/17 06:43 APTT 172 SECONDS (21-34) H* 06/06/17 06:35 - Constitutional Appears: No Acute Distress - Head Exam Head Exam: ATRAUMATIC - Neurological Exam Neurological Exam: Alert, Awake Neuro motor strength exam: Left Upper Extremity: 5, Right Upper Extremity: 5, Left Lower Extremity: 5, Right Lower Extremity: 5 Additional comments: Neurological unchanged from previous examination. Assessment and Plan (1) Encephalopathy acute Assessment & Plan: Case discussed with Dr. Devine, continue all current medical, physical, and occupational therapies. There is no new recommendation from neurology. Status: Acute
[2017-06-06] MEDS: ceFAZolin IV 2 gm in Dextrose 1 GM/50 ML BAG IVPB SCH (10:30)
[2017-06-06 11:05] LABS: BASOPHIL 1 % (0-2); EOSINOPHIL 6 % (0-4); NEUTROPHIL 72 % (50-75); TOTAL CELLS COUNTED 100
[2017-06-06 11:38] LABS: ALB/GLOB RATIO 0.8 (1.0-2.1); BILIRUBIN,TOTAL 0.3 mg/dL (0.2-1.3); CALCIUM 8.1 mg/dl (8.6-10.4)
--- NOTE | 2017-06-06 14:42 | CP.PCM.PN ---
Subjective - Date & Time of Evaluation Date of Evaluation: 06/06/17 Time of Evaluation: 14:41 - Subjective Subjective: Follow up Nephrology Consultation: Assessment: stable Acute Kidney Injury likely contrast induced nephropathy: now on HD since ? severe allergic reaction to polysulphone dialyzer Non-healing ulcer on heel with celluliits Diabetic chronic Kidney Disease (E11.22) Hypertensive Chronic Kidney Disease (I12.9) Chronic Kidney Disease (N18.4) Stage 4 with 500 mg proteinuria (R80.9) possibly due to DM and or HTN Anemia (D64.9), Hyperphosphatemia (E83.39), HTN (I12.9) systolic CHF, Morbid obesity, PVD, depression, CAD Hallucinations Plan plan for HD today with non-polysulphone [place]over Exeltra dialyzer. she tolerating HD well with this dialyzer. CM made aware for need of this dialyzer for outpt HD check labs with HD as much possible. no evidence of significant renal reovery yet. consider psych consult continue to monitor for renal recovery and I/O closely. Hypertension control with meds as ordered. continue with coreg, added losartan .now BP stable Increased epogen 25407 unit with HD and continue with phoslo continue with vit D and iron supplementation ID, cardiology and vascular surgery following pt with advanced CKD 4 at baseline, vascular can plan for AV access placement from renal perspective, plan for tomorrow Dose meds/antibiotics for reduced GFR <10. Avoid fleets enema/magnesium based laxatives. Avoid nephrotoxins/NSAIDs Glycemic control Further work up/management as per primary team Thanks for allowing me to participate in care of your patient. Will follow patient with you. Please call if any Qs. Dr Juan Torres Office: [phone] HPI: Pt is a 67 y/o F with hx of diabetes Mellitus hypertension, CHF, chronic anemia, hyperphos, DVT on coumadin, drpression, obesity, dementia, CVA, CKD ? 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 [employer] service used for creole interpretation. ROS: She Denies chest pain, palpitation, shortness of breath. has urinary complaints as decreased urine output. hallucinates in night, sees snakes Physical Examination: General Appearance: Comfortable, in no acute respiratory distress, co-operative . obese Vitals reviewed and noted as below Lungs: Normal respiratory rate/effort. Breath sounds bilateral equal and clear anteriorly Heart: Normal rate. s1s2 normal. No rub or gallop. Extremities: 1+ edema. No varicose veins. has chronic venous stasis changes. both feets in dressings. Neurological: Patient is alert, awake and not oriented to person, place or time. ? has dementia. No focal deficit. Strength bilateral appropriate and equal Skin: Warm and dry. Normal turgor. No rash. Palpitation: Normal elasticity for age Abdomen: Abdomen is soft. Bowel sounds +. There is no abdominal tenderness, no guarding/rigidity no organomegaly. she is obese MSK: no joint tenderness or swelling. Digits and nails normal, no deformity : kidney or bladder not palpable Access: permacath Rt IJ Labs/imaging/EKG reviewed. Past medical history, past surgical history, family history, social history, allergy reviewed and noted as below Family hx: no hx of CKD. Rest non-contributory Objective - Vital Signs/Intake and Output Vital Signs (last 24 hours): Temp Pulse Resp BP Pulse Ox 98.5 F 60 20 139/82 96 06/06/17 08:07 06/06/17 08:07 06/06/17 08:07 06/06/17 08:07 06/06/17 08:07 Intake and Output: 06/06/17 06/06/17 06:59 18:59 Intake Total 240 266.3 Balance 240 266.3 - Medications Medications: Current Medications Acetaminophen (Tylenol 325mg Tab) 650 mg PO Q6 PRN PRN Reason: Pain, moderate (4-7) Aspirin (Aspirin Chewable) 81 mg PO DAILY [facility] Last Admin: 06/06/17 09:03 Dose: 81 mg Calcium Acetate (Phoslo) 667 mg PO TIDAC [facility] Last Admin: 06/06/17 11:57 Dose: 667 mg Carvedilol (Coreg) 3.125 mg PO BID [facility] Last Admin: 06/06/17 10:30 Dose: 3.125 mg Clopidogrel Bisulfate (Plavix) 75 mg PO DAILY [facility] Last Admin: 06/06/17 09:00 Dose: 75 mg Dextrose (Dextrose 50% Inj) 0 ml IV STAT PRN; Protocol PRN Reason: Hypoglycemia Protocol Dextrose (Glutose 15) 0 gm PO ONCE PRN; Protocol PRN Reason: Hypoglycemia Protocol Epoetin Etienne (Procrit) 10,000 unit IV TTS [facility] Last Admin: 06/04/17 10:08 Dose: 10,000 unit Epoetin Etienne (Procrit) 6,000 unit IV TTS [facility] Ergocalciferol (Drisdol 50,000 Intl Units Cap) 1 cap PO Q7D [facility] Last Admin: 06/04/17 13:40 Dose: 1 cap Famotidine (Pepcid) 20 mg PO DAILY [facility] Last Admin: 06/06/17 09:42 Dose: 20 mg Ferrous Gluconate (Fergon) 324 mg PO TID [facility] Last Admin: 06/06/17 13:20 Dose: 324 mg Fluoxetine HCl (Prozac) 20 mg PO DAILY [facility] Last Admin: 06/06/17 09:02 Dose: 20 mg Hydralazine HCl (Apresoline) 25 mg PO Q4 PRN PRN Reason: Other Last Admin: 05/28/17 05:44 Dose: 25 mg Cefazolin Sodium/Dextrose (Ancef Iv 2 Gm Duplex) 1 gm in 50 mls @ 100 mls/hr IVPB TTS [facility] Last Admin: 06/06/17 10:30 Dose: 100 mls/hr Heparin Sodium/Sodium Chloride (Heparin 96847 Units/250ml 1/2 Normal Saline) 25 ,000 units in 250 mls @ 17.418 mls/hr IV .[id number] PRN; Protocol; 15 UNITS/KG/HR PRN Reason: ADJUST RATE PER PROTOCOL Last Admin: 06/06/17 09:36 Dose: 15 units/kg/hr, 17.418 mls/hr Insulin Aspart (Novolog) 0 unit SC ACHS [facility] PRN Reason: Protocol Last Admin: 06/06/17 11:58 Dose: 4 unit Lactulose (Enulose) 20 gm PO HS [facility] Last Admin: 06/05/17 22:16 Dose: 20 gm Losartan Potassium (Cozaar) 50 mg PO QPM [facility] Last Admin: 06/05/17 18:31 Dose: 50 mg Rosuvastatin Calcium (Crestor) 10 mg PO HS [facility] Last Admin: 06/05/17 22:16 Dose: 10 mg Sucralfate (Carafate Tab) 1 gm PO BID [facility] Last Admin: 06/06/17 09:00 Dose: 1 gm Vitamin B Complex/Vit C/Folic Acid (Nephro-Naren) 1 tab PO DAILY [facility] Last Admin: 06/06/17 09:00 Dose: 1 tab - Labs Labs: 06/06/17 06:35 06/06/17 10:03 PT 13.5 SECONDS (9.7-12.2) H 05/28/17 06:43 INR 1.2 05/28/17 06:43 APTT 172 SECONDS (21-34) H* 06/06/17 06:35
--- NOTE | 2017-06-06 14:59 | CP.PCM.PN ---
Subjective - Date & Time of Evaluation Date of Evaluation: 06/06/17 Time of Evaluation: 10:00 - Subjective Subjective: PGY3 on medicine Dr. Denis service: Pt seen and examined at bedside this morning. No acute events overnight. Mental status unchanged. Scheduled for dialysis today. Objective - Vital Signs/Intake and Output Vital Signs (last 24 hours): Temp Pulse Resp BP Pulse Ox 98.5 F 60 20 139/82 96 06/06/17 08:07 06/06/17 08:07 06/06/17 08:07 06/06/17 08:07 06/06/17 08:07 Intake and Output: 06/06/17 06/06/17 06:59 18:59 Intake Total 240 266.3 Balance 240 266.3 - Medications Medications: Current Medications Acetaminophen (Tylenol 325mg Tab) 650 mg PO Q6 PRN PRN Reason: Pain, moderate (4-7) Aspirin (Aspirin Chewable) 81 mg PO DAILY [facility] Last Admin: 06/06/17 09:03 Dose: 81 mg Calcium Acetate (Phoslo) 667 mg PO TIDAC [facility] Last Admin: 06/06/17 11:57 Dose: 667 mg Carvedilol (Coreg) 3.125 mg PO BID [facility] Last Admin: 06/06/17 10:30 Dose: 3.125 mg Clopidogrel Bisulfate (Plavix) 75 mg PO DAILY [facility] Last Admin: 06/06/17 09:00 Dose: 75 mg Dextrose (Dextrose 50% Inj) 0 ml IV STAT PRN; Protocol PRN Reason: Hypoglycemia Protocol Dextrose (Glutose 15) 0 gm PO ONCE PRN; Protocol PRN Reason: Hypoglycemia Protocol Epoetin Etienne (Procrit) 10,000 unit IV TTS [facility] Last Admin: 06/04/17 10:08 Dose: 10,000 unit Epoetin Etienne (Procrit) 6,000 unit IV TTS [facility] Ergocalciferol (Drisdol 50,000 Intl Units Cap) 1 cap PO Q7D [facility] Last Admin: 06/04/17 13:40 Dose: 1 cap Famotidine (Pepcid) 20 mg PO DAILY [facility] Last Admin: 06/06/17 09:42 Dose: 20 mg Ferrous Gluconate (Fergon) 324 mg PO TID [facility] Last Admin: 06/06/17 13:20 Dose: 324 mg Fluoxetine HCl (Prozac) 20 mg PO DAILY [facility] Last Admin: 06/06/17 09:02 Dose: 20 mg Hydralazine HCl (Apresoline) 25 mg PO Q4 PRN PRN Reason: Other Last Admin: 05/28/17 05:44 Dose: 25 mg Cefazolin Sodium/Dextrose (Ancef Iv 2 Gm Duplex) 1 gm in 50 mls @ 100 mls/hr IVPB TTS [facility] Last Admin: 06/06/17 10:30 Dose: 100 mls/hr Heparin Sodium/Sodium Chloride (Heparin 03253 Units/250ml 1/2 Normal Saline) 25 ,000 units in 250 mls @ 17.418 mls/hr IV .[id number] PRN; Protocol; 15 UNITS/KG/HR PRN Reason: ADJUST RATE PER PROTOCOL Last Admin: 06/06/17 09:36 Dose: 15 units/kg/hr, 17.418 mls/hr Insulin Aspart (Novolog) 0 unit SC ACHS [facility] PRN Reason: Protocol Last Admin: 06/06/17 11:58 Dose: 4 unit Lactulose (Enulose) 20 gm PO HS [facility] Last Admin: 06/05/17 22:16 Dose: 20 gm Losartan Potassium (Cozaar) 50 mg PO QPM [facility] Last Admin: 06/05/17 18:31 Dose: 50 mg Rosuvastatin Calcium (Crestor) 10 mg PO HS [facility] Last Admin: 06/05/17 22:16 Dose: 10 mg Sucralfate (Carafate Tab) 1 gm PO BID [facility] Last Admin: 06/06/17 09:00 Dose: 1 gm Vitamin B Complex/Vit C/Folic Acid (Nephro-Naren) 1 tab PO DAILY [facility] Last Admin: 06/06/17 09:00 Dose: 1 tab - Labs Labs: 06/06/17 06:35 06/06/17 10:03 PT 13.5 SECONDS (9.7-12.2) H 05/28/17 06:43 INR 1.2 05/28/17 06:43 APTT 172 SECONDS (21-34) H* 06/06/17 06:35 - Constitutional Appears: Non-toxic, No Acute Distress, Chronically Ill - Head Exam Head Exam: NORMOCEPHALIC - Eye Exam Eye Exam: Normal appearance - ENT Exam ENT Exam: Mucous Membranes Moist - Respiratory Exam Respiratory Exam: Clear to Ausculation Bilateral, NORMAL BREATHING PATTERN. absent: Wheezes - Cardiovascular Exam Cardiovascular Exam: REGULAR RHYTHM, +S1, +S2. absent: Gallop, Rubs - GI/Abdominal Exam GI & Abdominal Exam: Soft, Normal Bowel Sounds. absent: Tenderness - Neurological Exam Neurological Exam: Alert, Awake - Psychiatric Exam Psychiatric exam: Normal Mood Assessment and Plan - Assessment and Plan (Free Text) Assessment: Acute on chronic renal failure 06/06: pt scheduled for dialysis access in OR per surgery, NPO past midnight. Patient has a permacath in for dialysis nephrology is onboard. Pending dialysis placement. Patient will be switched to Vancomycin and Gentamycin upon discharge. UPPER EXTREMITY DVT ON THE RIGHT 06/05: Started on Heparin drip, will need oral coaguation on discharge. PVD (peripheral vascular disease) 06/05: S/P angioplasty no further intervention on this problem. S/P angiography and angioplasty LLE. No further intervention at this point per surgery team. Diabetic infection of right foot; chronic DM uncontrolled 06/05: Still on IV Ancef post dialysis. IV ancef 2gram post dialysis Diabetes is uncontrolled A1C 10.1 sliding scale and accu checks with hypoglycemia protocol, Lantus 20 units daily HS. Pending dialysis placement. Patient will be switched to Vancomycin and Gentamycin upon discharge. Encephalopathy; resolving Seems to be improving neurology onboard; appreciate recs Laculose 20 gm daily. CAD (coronary artery disease) Patient went for Cath with Dr. Ledesma please see his note, she will need PCI which can be done after her leg surgery with Dr. Ledesma. Aspirin, Plavix, and Crestor 10mg. Systolic CHF; acute on chronic also 2/2 to noncompliance on Beta kam will need to follow up with Dr. Ledesma as far medical management. per report from cath, she has a LV EF of 25% patient is on sudden cardiac protocol here with monitor Anemia; chronic Assessment & Plan: Procrit 1000 units and also PO iron. HTN (hypertension); chronic uncontrolled Assessment & Plan: Coreg 3.125gm bid, Hydralazine 25mg q4 prn, and also 50mg bid, Depression;chronic Prozac 20mg daily Patient is not suicidal however very internally preoccupied Prophylactic measure 05/05: Changed to heparin drip due to upper extremity DVT. Pepcid 20mg bid, carafate, heparin 5000 units q8h, Tylenol for pain. Pending dialysis placement. All management as per Dr. Denis
--- NOTE | 2017-06-06 16:43 | CP.PCM.PN ---
Subjective - Date & Time of Evaluation Date of Evaluation: 06/06/17 Time of Evaluation: 07:00 - Subjective Subjective: VASCULAR SURGERY PROGRESS NOTE FOR DR. UGALDE Patient seen and examined at bedside. Patient had dialysis today. Patient did physical therapy today. Patient has no complaints. Aware of surgery tomorrow. Objective - Vital Signs/Intake and Output Vital Signs (last 24 hours): Temp Pulse Resp BP Pulse Ox 98.1 F 65 16 173/99 H 100 06/06/17 14:55 06/06/17 14:55 06/06/17 14:55 06/06/17 15:25 06/06/17 14:55 Intake and Output: 06/06/17 06/06/17 06:59 18:59 Intake Total 240 966.3 Balance 240 966.3 - Medications Medications: Current Medications Acetaminophen (Tylenol 325mg Tab) 650 mg PO Q6 PRN PRN Reason: Pain, moderate (4-7) Aspirin (Aspirin Chewable) 81 mg PO DAILY [facility] Last Admin: 06/06/17 09:03 Dose: 81 mg Calcium Acetate (Phoslo) 667 mg PO TIDAC [facility] Last Admin: 06/06/17 11:57 Dose: 667 mg Carvedilol (Coreg) 3.125 mg PO BID [facility] Last Admin: 06/06/17 10:30 Dose: 3.125 mg Clopidogrel Bisulfate (Plavix) 75 mg PO DAILY [facility] Last Admin: 06/06/17 09:00 Dose: 75 mg Dextrose (Dextrose 50% Inj) 0 ml IV STAT PRN; Protocol PRN Reason: Hypoglycemia Protocol Dextrose (Glutose 15) 0 gm PO ONCE PRN; Protocol PRN Reason: Hypoglycemia Protocol Epoetin Etienne (Procrit) 10,000 unit IV TTS [facility] Last Admin: 06/04/17 10:08 Dose: 10,000 unit Epoetin Etienne (Procrit) 6,000 unit IV TTS [facility] Ergocalciferol (Drisdol 50,000 Intl Units Cap) 1 cap PO Q7D [facility] Last Admin: 06/04/17 13:40 Dose: 1 cap Famotidine (Pepcid) 20 mg PO DAILY [facility] Last Admin: 06/06/17 09:42 Dose: 20 mg Ferrous Gluconate (Fergon) 324 mg PO TID [facility] Last Admin: 06/06/17 13:20 Dose: 324 mg Fluoxetine HCl (Prozac) 20 mg PO DAILY [facility] Last Admin: 06/06/17 09:02 Dose: 20 mg Hydralazine HCl (Apresoline) 25 mg PO Q4 PRN PRN Reason: Other Last Admin: 05/28/17 05:44 Dose: 25 mg Cefazolin Sodium/Dextrose (Ancef Iv 2 Gm Duplex) 1 gm in 50 mls @ 100 mls/hr IVPB TTS [facility] Last Admin: 06/06/17 10:30 Dose: 100 mls/hr Heparin Sodium/Sodium Chloride (Heparin 82397 Units/250ml 1/2 Normal Saline) 25 ,000 units in 250 mls @ 17.418 mls/hr IV .[id number] PRN; Protocol; 15 UNITS/KG/HR PRN Reason: ADJUST RATE PER PROTOCOL Last Admin: 06/06/17 14:53 Dose: 15 units/kg/hr, 17.418 mls/hr Insulin Aspart (Novolog) 0 unit SC ACHS [facility] PRN Reason: Protocol Last Admin: 06/06/17 11:58 Dose: 4 unit Lactulose (Enulose) 20 gm PO HS [facility] Last Admin: 06/05/17 22:16 Dose: 20 gm Losartan Potassium (Cozaar) 50 mg PO QPM [facility] Last Admin: 06/05/17 18:31 Dose: 50 mg Rosuvastatin Calcium (Crestor) 10 mg PO HS [facility] Last Admin: 06/05/17 22:16 Dose: 10 mg Sucralfate (Carafate Tab) 1 gm PO BID [facility] Last Admin: 06/06/17 09:00 Dose: 1 gm Vitamin B Complex/Vit C/Folic Acid (Nephro-Naren) 1 tab PO DAILY [facility] Last Admin: 06/06/17 09:00 Dose: 1 tab - Labs Labs: 06/06/17 06:35 06/06/17 10:03 PT 13.5 SECONDS (9.7-12.2) H 05/28/17 06:43 INR 1.2 05/28/17 06:43 APTT 172 SECONDS (21-34) H* 06/06/17 06:35 Assessment and Plan - Assessment and Plan (Free Text) Assessment: 67yo F with heel ulcer s/p aortofemoral angiogram via right groin with selective catherization of left femoral artery. pathway atherectomy of left popliteal and posterior tibial. dcb ballon angioplasty 4mm. POD#3 and POD#14 of permacath placement - Vein mapping done for possible AV access, DVT seen in right jugular vein - pt on Heparin drip - OR tomorrow for AV fistula - Heparin drip to be held 6 hours prior to surgery tomorrow - NPO past midnight - Discussed plan with Dr. Heather Olson PGY-3
[2017-06-06] MEDS: Epoetin Alfa 10,000 unit/ml Dialysis IV SCH (17:13)
[2017-06-07 08:12] LABS: CALCIUM 8.3 mg/dl (8.6-10.4); POTASSIUM 3.9 mmol/L (3.6-5.2)
[2017-06-07 08:17] LABS: BASO % 0.4 % (0.0-2.0); EOS # 0.3 K/uL (0.0-0.7); EOS % 3.4 % (0.0-4.0); HEMATOCRIT 29.7 % (34.0-47.0); LYMPH # 0.9 K/uL (1.0-4.3); LYMPH % 10.3 % (20.0-40.0); MEAN CELL VOLUME 95.5 fL (81.0-99.0); MEAN CORPUSCULAR HEMOGLOBIN 29.1 pg (27.0-31.0); MEAN CORPUSCULAR HGB CONC 30.5 g/dL (33.0-37.0); MEAN PLATELET VOLUME 8.8 fL (7.2-11.7); MONO # 1.1 K/uL (0.0-0.8); MONO % 13.6 % (0.0-10.0); NRBC % 0.3 % (0.0-2.0); RED CELL DISTRIBUTION WIDTH 19.7 % (11.5-14.5); WHITE BLOOD COUNT 8.4 K/uL (4.8-10.8)
[2017-06-07] MEDS: (Novolog) Insulin Aspart, Recombinant 100 u/ml 10 ml vial SC SCH ×4 (08:28→21:15)
--- NOTE | 2017-06-07 09:04 | CP.PCM.PN ---
Subjective - Date & Time of Evaluation Date of Evaluation: 06/07/17 Time of Evaluation: 10:30 - Subjective Subjective: Dr. Denis note: Patient shanice 67 year old female that is here with Renal failure, with a history of HTN, DM, PVD, and lower extremity infection is pending to have a AV fistula. She has no new complaints, her scheduled AV fistula has been post poned till Saturday. Objective - Vital Signs/Intake and Output Vital Signs (last 24 hours): Temp Pulse Resp BP Pulse Ox 97.8 F 72 20 166/91 H 97 06/07/17 08:26 06/07/17 08:26 06/07/17 08:26 06/07/17 08:26 06/07/17 08:26 Intake and Output: 06/07/17 06/07/17 06:59 18:59 Intake Total 200 213.8 Balance 200 213.8 - Medications Medications: Current Medications Acetaminophen (Tylenol 325mg Tab) 650 mg PO Q6 PRN PRN Reason: Pain, moderate (4-7) Aspirin (Aspirin Chewable) 81 mg PO DAILY [facility] Last Admin: 06/06/17 09:03 Dose: 81 mg Calcium Acetate (Phoslo) 667 mg PO TIDAC [facility] Last Admin: 06/07/17 08:28 Dose: 667 mg Carvedilol (Coreg) 3.125 mg PO BID [facility] Last Admin: 06/06/17 18:32 Dose: 3.125 mg Clopidogrel Bisulfate (Plavix) 75 mg PO DAILY [facility] Last Admin: 06/06/17 09:00 Dose: 75 mg Dextrose (Dextrose 50% Inj) 0 ml IV STAT PRN; Protocol PRN Reason: Hypoglycemia Protocol Dextrose (Glutose 15) 0 gm PO ONCE PRN; Protocol PRN Reason: Hypoglycemia Protocol Epoetin Etienne (Procrit) 10,000 unit IV TTS [facility] Last Admin: 06/06/17 17:13 Dose: 10,000 unit Epoetin Etienne (Procrit) 6,000 unit IV TTS [facility] Last Admin: 06/06/17 17:14 Dose: 6,000 unit Ergocalciferol (Drisdol 50,000 Intl Units Cap) 1 cap PO Q7D [facility] Last Admin: 06/04/17 13:40 Dose: 1 cap Famotidine (Pepcid) 20 mg PO DAILY [facility] Last Admin: 06/06/17 09:42 Dose: 20 mg Ferrous Gluconate (Fergon) 324 mg PO TID [facility] Last Admin: 06/06/17 18:34 Dose: 324 mg Fluoxetine HCl (Prozac) 20 mg PO DAILY [facility] Last Admin: 06/06/17 09:02 Dose: 20 mg Hydralazine HCl (Apresoline) 25 mg PO Q4 PRN PRN Reason: Other Last Admin: 05/28/17 05:44 Dose: 25 mg Cefazolin Sodium/Dextrose (Ancef Iv 2 Gm Duplex) 1 gm in 50 mls @ 100 mls/hr IVPB TTS [facility] Last Admin: 06/06/17 10:30 Dose: 100 mls/hr Heparin Sodium/Sodium Chloride (Heparin 02361 Units/250ml 1/2 Normal Saline) 25 ,000 units in 250 mls @ 13.444 mls/hr IV .[id number] PRN; Protocol; 12 UNITS/KG/HR PRN Reason: ADJUST RATE PER PROTOCOL Last Admin: 06/06/17 19:29 Dose: 12 units/kg/hr, 13.444 mls/hr Insulin Aspart (Novolog) 0 unit SC ACHS [facility] PRN Reason: Protocol Last Admin: 06/07/17 08:28 Dose: 2 unit Lactulose (Enulose) 20 gm PO HS [facility] Last Admin: 06/06/17 21:07 Dose: 20 gm Losartan Potassium (Cozaar) 50 mg PO QPM [facility] Last Admin: 06/06/17 18:32 Dose: 50 mg Rosuvastatin Calcium (Crestor) 10 mg PO HS [facility] Last Admin: 06/06/17 21:07 Dose: 10 mg Sucralfate (Carafate Tab) 1 gm PO BID [facility] Last Admin: 06/06/17 18:32 Dose: 1 gm Vitamin B Complex/Vit C/Folic Acid (Nephro-Naren) 1 tab PO DAILY [facility] Last Admin: 06/06/17 09:00 Dose: 1 tab - Labs Labs: 06/07/17 07:43 06/07/17 07:43 PT 13.5 SECONDS (9.7-12.2) H 05/28/17 06:43 INR 1.2 05/28/17 06:43 APTT 44 SECONDS (21-34) H D 06/07/17 07:43 - Constitutional Appears: Non-toxic, No Acute Distress - Respiratory Exam Respiratory Exam: Clear to Ausculation Bilateral - Cardiovascular Exam Cardiovascular Exam: REGULAR RHYTHM, RRR, +S1, +S2. absent: Gallop, Rubs Additional comments: permcath on the right side. - GI/Abdominal Exam GI & Abdominal Exam: Soft, Normal Bowel Sounds - Extremities Exam Extremities Exam: Normal Inspection - Back Exam Back Exam: NORMAL INSPECTION - Psychiatric Exam Psychiatric exam: Normal Affect, Normal Mood - Skin Skin Exam: Normal Color Assessment and Plan - Assessment and Plan (Free Text) Assessment: Acute on chronic renal failure 06/07: AV fistula scheduled for 06/10: pt scheduled for dialysis access in OR per surgery, NPO past midnight. Patient has a permacath in for dialysis nephrology is onboard. Pending dialysis placement. Patient will be switched to Vancomycin and Gentamycin upon discharge. UPPER EXTREMITY DVT ON THE RIGHT 06/07: Still on Heparin drip 06/05: Started on Heparin drip, will need oral coaguation on discharge. PVD (peripheral vascular disease) 06/05: S/P angioplasty no further intervention on this problem. S/P angiography and angioplasty LLE. No further intervention at this point per surgery team. Diabetic infection of right foot; chronic DM uncontrolled 06/05: Still on IV Ancef post dialysis. IV ancef 2gram post dialysis Diabetes is uncontrolled A1C 10.1 sliding scale and accu checks with hypoglycemia protocol, Lantus 20 units daily HS. Pending dialysis placement. Patient will be switched to Vancomycin and Gentamycin upon discharge. Encephalopathy; resolving Seems to be improving neurology onboard; appreciate recs Laculose 20 gm daily. CAD (coronary artery disease) Patient went for Cath with Dr. Ledesma please see his note, she will need PCI which can be done after her leg surgery with Dr. Ledesma. Aspirin, Plavix, and Crestor 10mg. Systolic CHF; acute on chronic also 2/2 to noncompliance on Beta kam will need to follow up with Dr. Ledesma as far medical management. per report from cath, she has a LV EF of 25% patient is on sudden cardiac protocol here with monitor Anemia; chronic Assessment & Plan: Procrit 1000 units and also PO iron. HTN (hypertension); chronic uncontrolled Assessment & Plan: Coreg 3.125gm bid, Hydralazine 25mg q4 prn, and also 50mg bid, Depression;chronic Prozac 20mg daily Patient is not suicidal however very internally preoccupied Prophylactic measure 05/05: Changed to heparin drip due to upper extremity DVT. Pepcid 20mg bid, carafate, heparin 5000 units q8h, Tylenol for pain. Pending dialysis placement. All management as per Dr. Denis
[2017-06-07] MEDS: Multivitamin Vitamin B Complex (Nephro-Vite) Tab PO SCH (09:48)
--- NOTE | 2017-06-07 11:19 | CP.PCM.PN ---
Subjective - Date & Time of Evaluation Date of Evaluation: 06/07/17 Time of Evaluation: 11:16 - Subjective Subjective: Ms. Taveras was seen and examined at the bedside. She is alert, oriented. She denies any headache, dizziness, blurred vision, nausea, or vomiting. She loves to cover her head when sleeping. She is able to follow simple commands.She is not in any kind of distress. There was no untoward events overnight. Objective - Vital Signs/Intake and Output Vital Signs (last 24 hours): Temp Pulse Resp BP Pulse Ox 97.8 F 72 20 166/91 H 97 06/07/17 08:26 06/07/17 08:26 06/07/17 08:26 06/07/17 08:26 06/07/17 08:26 Intake and Output: 06/07/17 06/07/17 06:59 18:59 Intake Total 200 213.8 Balance 200 213.8 - Medications Medications: Current Medications Acetaminophen (Tylenol 325mg Tab) 650 mg PO Q6 PRN PRN Reason: Pain, moderate (4-7) Aspirin (Aspirin Chewable) 81 mg PO DAILY [facility] Last Admin: 06/07/17 09:45 Dose: Not Given Calcium Acetate (Phoslo) 667 mg PO TIDAC [facility] Last Admin: 06/07/17 10:56 Dose: Not Given Carvedilol (Coreg) 3.125 mg PO BID [facility] Last Admin: 06/07/17 09:45 Dose: Not Given Clopidogrel Bisulfate (Plavix) 75 mg PO DAILY [facility] Last Admin: 06/07/17 09:48 Dose: Not Given Dextrose (Dextrose 50% Inj) 0 ml IV STAT PRN; Protocol PRN Reason: Hypoglycemia Protocol Dextrose (Glutose 15) 0 gm PO ONCE PRN; Protocol PRN Reason: Hypoglycemia Protocol Epoetin Etienne (Procrit) 10,000 unit IV TTS [facility] Last Admin: 06/06/17 17:13 Dose: 10,000 unit Epoetin Etienne (Procrit) 6,000 unit IV TTS [facility] Last Admin: 06/06/17 17:14 Dose: 6,000 unit Ergocalciferol (Drisdol 50,000 Intl Units Cap) 1 cap PO Q7D [facility] Last Admin: 06/04/17 13:40 Dose: 1 cap Famotidine (Pepcid) 20 mg PO DAILY [facility] Last Admin: 06/07/17 10:56 Dose: Not Given Ferrous Gluconate (Fergon) 324 mg PO TID [facility] Last Admin: 06/07/17 09:47 Dose: Not Given Fluoxetine HCl (Prozac) 20 mg PO DAILY [facility] Last Admin: 06/07/17 09:48 Dose: Not Given Hydralazine HCl (Apresoline) 25 mg PO Q4 PRN PRN Reason: Other Last Admin: 05/28/17 05:44 Dose: 25 mg Cefazolin Sodium/Dextrose (Ancef Iv 2 Gm Duplex) 1 gm in 50 mls @ 100 mls/hr IVPB TTS [facility] Last Admin: 06/06/17 10:30 Dose: 100 mls/hr Heparin Sodium/Sodium Chloride (Heparin 40845 Units/250ml 1/2 Normal Saline) 25 ,000 units in 250 mls @ 13.444 mls/hr IV .[id number] PRN; Protocol; 12 UNITS/KG/HR PRN Reason: ADJUST RATE PER PROTOCOL Last Admin: 06/06/17 19:29 Dose: 12 units/kg/hr, 13.444 mls/hr Insulin Aspart (Novolog) 0 unit SC ACHS [facility] PRN Reason: Protocol Last Admin: 06/07/17 08:28 Dose: 2 unit Lactulose (Enulose) 20 gm PO HS [facility] Last Admin: 06/06/17 21:07 Dose: 20 gm Losartan Potassium (Cozaar) 100 mg PO QPM [facility] Rosuvastatin Calcium (Crestor) 10 mg PO HS [facility] Last Admin: 06/06/17 21:07 Dose: 10 mg Sucralfate (Carafate Tab) 1 gm PO BID [facility] Last Admin: 06/07/17 09:45 Dose: Not Given Vitamin B Complex/Vit C/Folic Acid (Nephro-Naren) 1 tab PO DAILY [facility] Last Admin: 06/07/17 09:48 Dose: Not Given - Labs Labs: 06/07/17 07:43 06/07/17 07:43 PT 13.5 SECONDS (9.7-12.2) H 05/28/17 06:43 INR 1.2 05/28/17 06:43 APTT 44 SECONDS (21-34) H D 06/07/17 07:43 - Constitutional Appears: No Acute Distress - Head Exam Head Exam: ATRAUMATIC - Neurological Exam Neurological Exam: Alert, Awake Neuro motor strength exam: Left Upper Extremity: 5, Right Upper Extremity: 5, Left Lower Extremity: 5, Right Lower Extremity: 5 Additional comments: Neurological unchanged from previous examination. Assessment and Plan (1) Encephalopathy acute Assessment & Plan: Case discussed with dr. Devine, continue all current medical, physical, and occupational therapies. There is no new recommendation from neurology. Status: Acute
[2017-06-07] MEDS ORDERED: HEPARIN-NS 5,000 UNITS/500 ML 0 UNIT/0 ML BAG IV ONE (14:03)
--- NOTE | 2017-06-07 15:19 | CP.PCM.PN ---
Subjective - Date & Time of Evaluation Date of Evaluation: 06/07/17 Time of Evaluation: 08:16 - Subjective Subjective: Surgery Progress note. Dr. Romero Pt seen and examined at bedside. No acute events overnight. She is alert and oriented. Denies any complaints. No F/C. No N/V/D. Objective - Vital Signs/Intake and Output Vital Signs (last 24 hours): Temp Pulse Resp BP Pulse Ox 97.8 F 72 20 166/91 H 97 06/07/17 08:26 06/07/17 08:26 06/07/17 08:26 06/07/17 08:26 06/07/17 08:26 Intake and Output: 06/07/17 06/07/17 06:59 18:59 Intake Total 200 213.8 Balance 200 213.8 - Medications Medications: Current Medications Acetaminophen (Tylenol 325mg Tab) 650 mg PO Q6 PRN PRN Reason: Pain, moderate (4-7) Aspirin (Aspirin Chewable) 81 mg PO DAILY [facility] Last Admin: 06/07/17 09:45 Dose: Not Given Calcium Acetate (Phoslo) 667 mg PO TIDAC [facility] Last Admin: 06/07/17 10:56 Dose: Not Given Carvedilol (Coreg) 3.125 mg PO BID [facility] Last Admin: 06/07/17 09:45 Dose: Not Given Clopidogrel Bisulfate (Plavix) 75 mg PO DAILY [facility] Last Admin: 06/07/17 09:48 Dose: Not Given Dextrose (Dextrose 50% Inj) 0 ml IV STAT PRN; Protocol PRN Reason: Hypoglycemia Protocol Dextrose (Glutose 15) 0 gm PO ONCE PRN; Protocol PRN Reason: Hypoglycemia Protocol Epoetin Etienne (Procrit) 10,000 unit IV TTS [facility] Last Admin: 06/06/17 17:13 Dose: 10,000 unit Epoetin Etienne (Procrit) 6,000 unit IV TTS [facility] Last Admin: 06/06/17 17:14 Dose: 6,000 unit Ergocalciferol (Drisdol 50,000 Intl Units Cap) 1 cap PO Q7D [facility] Last Admin: 06/04/17 13:40 Dose: 1 cap Famotidine (Pepcid) 20 mg PO DAILY [facility] Last Admin: 06/07/17 10:56 Dose: Not Given Ferrous Gluconate (Fergon) 324 mg PO TID [facility] Last Admin: 06/07/17 14:05 Dose: Not Given Fluoxetine HCl (Prozac) 20 mg PO DAILY [facility] Last Admin: 06/07/17 09:48 Dose: Not Given Hydralazine HCl (Apresoline) 25 mg PO Q4 PRN PRN Reason: Other Last Admin: 05/28/17 05:44 Dose: 25 mg Cefazolin Sodium/Dextrose (Ancef Iv 2 Gm Duplex) 1 gm in 50 mls @ 100 mls/hr IVPB TTS [facility] Last Admin: 06/06/17 10:30 Dose: 100 mls/hr Heparin Sodium/Sodium Chloride (Heparin 05877 Units/250ml 1/2 Normal Saline) 25 ,000 units in 250 mls @ 13.444 mls/hr IV .[id number] PRN; Protocol; 12 UNITS/KG/HR PRN Reason: ADJUST RATE PER PROTOCOL Last Admin: 06/06/17 19:29 Dose: 12 units/kg/hr, 13.444 mls/hr Insulin Aspart (Novolog) 0 unit SC ACHS [facility] PRN Reason: Protocol Last Admin: 06/07/17 11:41 Dose: Not Given Lactulose (Enulose) 20 gm PO HS [facility] Last Admin: 06/06/17 21:07 Dose: 20 gm Losartan Potassium (Cozaar) 100 mg PO QPM [facility] Rosuvastatin Calcium (Crestor) 10 mg PO HS [facility] Last Admin: 06/06/17 21:07 Dose: 10 mg Sucralfate (Carafate Tab) 1 gm PO BID [facility] Last Admin: 06/07/17 09:45 Dose: Not Given Vitamin B Complex/Vit C/Folic Acid (Nephro-Naren) 1 tab PO DAILY [facility] Last Admin: 06/07/17 09:48 Dose: Not Given - Labs Labs: 06/07/17 07:43 06/07/17 07:43 PT 13.5 SECONDS (9.7-12.2) H 05/28/17 06:43 INR 1.2 05/28/17 06:43 APTT 44 SECONDS (21-34) H D 06/07/17 07:43 - Constitutional Appears: Non-toxic, No Acute Distress - Head Exam Head Exam: ATRAUMATIC, NORMAL INSPECTION, NORMOCEPHALIC - Eye Exam Eye Exam: EOMI - ENT Exam ENT Exam: Mucous Membranes Moist - Respiratory Exam Respiratory Exam: NORMAL BREATHING PATTERN. absent: Accessory Muscle Use, Respiratory Distress - Cardiovascular Exam Cardiovascular Exam: RRR. absent: JVD - GI/Abdominal Exam GI & Abdominal Exam: Soft. absent: Distended, Guarding, Tenderness - Neurological Exam Neurological Exam: Alert, Awake Assessment and Plan - Assessment and Plan (Free Text) Assessment: 67yo F with heel ulcer s/p aortofemoral angiogram via right groin with selective catherization of left femoral artery. pathway atherectomy of left popliteal and posterior tibial. dcb ballon angioplasty 4mm. POD#4 and POD#15 of permacath placement. Awaiting placement of AV fistula - Vein mapping with DVT seen in right jugular vein - continue Heparin drip - Possible OR Saturday, 06/10, for AV fistula - Heparin drip to be held 6 hours prior to surgery - NPO past midnight Saturday Further recs as per Dr. Heather Sigala PGY1 surgery pager: [phone]
--- NOTE | 2017-06-07 16:31 | CP.PCM.PN ---
Subjective - Date & Time of Evaluation Date of Evaluation: 06/07/17 Time of Evaluation: 16:31 - Subjective Subjective: Follow up Nephrology Consultation: Assessment: stable Acute Kidney Injury likely contrast induced nephropathy: now on HD since ? severe allergic reaction to polysulphone dialyzer Non-healing ulcer on heel with celluliits Diabetic chronic Kidney Disease (E11.22) Hypertensive Chronic Kidney Disease (I12.9) Chronic Kidney Disease (N18.4) Stage 4 with 500 mg proteinuria (R80.9) possibly due to DM and or HTN Anemia (D64.9), Hyperphosphatemia (E83.39), HTN (I12.9) systolic CHF, Morbid obesity, PVD, depression, CAD Hallucinations Plan plan for HD tomorrow with non-polysulphone Glover Exeltra dialyzer. she tolerating HD well with this dialyzer. CM made aware for need of this dialyzer for outpt HD check labs with HD as much possible. no evidence of significant renal reovery yet. consider psych consult continue to monitor for renal recovery and I/O closely. Hypertension control with meds as ordered. continue with coreg, added losartan .now BP stable Increased epogen 71423 unit with HD and continue with phoslo continue with vit D and iron supplementation ID, cardiology and vascular surgery following pt with advanced CKD 4 at baseline, vascular can plan for AV access placement from renal perspective, plan for saturday Dose meds/antibiotics for reduced GFR <10. Avoid fleets enema/magnesium based laxatives. Avoid nephrotoxins/NSAIDs Glycemic control Further work up/management as per primary team Thanks for allowing me to participate in care of your patient. Will follow patient with you. Please call if any Qs. Dr Juan Torres Office: [phone] HPI: Pt is a 67 y/o F with hx of diabetes Mellitus hypertension, CHF, chronic anemia, hyperphos, DVT on coumadin, drpression, obesity, dementia, CVA, CKD ? stage and a [facility] resident at [facility] presented with complaints of non healing ulcer Rt heel. [employer] service used for creole interpretation. ROS: She Denies chest pain, palpitation, shortness of breath. has urinary complaints as decreased urine output. hallucinates in night, sees snakes Physical Examination: General Appearance: Comfortable, in no acute respiratory distress, co-operative . obese Vitals reviewed and noted as below Lungs: Normal respiratory rate/effort. Breath sounds bilateral equal and clear anteriorly Heart: Normal rate. s1s2 normal. No rub or gallop. Extremities: 1+ edema. No varicose veins. has chronic venous stasis changes. both feets in dressings. Neurological: Patient is alert, awake and not oriented to person, place or time. ? has dementia. No focal deficit. Strength bilateral appropriate and equal Skin: Warm and dry. Normal turgor. No rash. Palpitation: Normal elasticity for age Abdomen: Abdomen is soft. Bowel sounds +. There is no abdominal tenderness, no guarding/rigidity no organomegaly. she is obese MSK: no joint tenderness or swelling. Digits and nails normal, no deformity : kidney or bladder not palpable Access: permacath Rt IJ Labs/imaging/EKG reviewed. Past medical history, past surgical history, family history, social history, allergy reviewed and noted as below Family hx: no hx of CKD. Rest non-contributory Objective - Vital Signs/Intake and Output Vital Signs (last 24 hours): Temp Pulse Resp BP Pulse Ox 97.8 F 72 20 166/91 H 97 06/07/17 08:26 06/07/17 08:26 06/07/17 08:26 06/07/17 08:26 06/07/17 08:26 Intake and Output: 06/07/17 06/07/17 06:59 18:59 Intake Total 200 213.8 Balance 200 213.8 - Medications Medications: Current Medications Acetaminophen (Tylenol 325mg Tab) 650 mg PO Q6 PRN PRN Reason: Pain, moderate (4-7) Aspirin (Aspirin Chewable) 81 mg PO DAILY [facility] Last Admin: 06/07/17 09:45 Dose: Not Given Calcium Acetate (Phoslo) 667 mg PO TIDAC [facility] Last Admin: 06/07/17 10:56 Dose: Not Given Carvedilol (Coreg) 3.125 mg PO BID [facility] Last Admin: 06/07/17 09:45 Dose: Not Given Clopidogrel Bisulfate (Plavix) 75 mg PO DAILY [facility] Last Admin: 06/07/17 09:48 Dose: Not Given Dextrose (Dextrose 50% Inj) 0 ml IV STAT PRN; Protocol PRN Reason: Hypoglycemia Protocol Dextrose (Glutose 15) 0 gm PO ONCE PRN; Protocol PRN Reason: Hypoglycemia Protocol Epoetin Etienne (Procrit) 10,000 unit IV TTS [facility] Last Admin: 06/06/17 17:13 Dose: 10,000 unit Epoetin Etienne (Procrit) 6,000 unit IV TTS [facility] Last Admin: 06/06/17 17:14 Dose: 6,000 unit Ergocalciferol (Drisdol 50,000 Intl Units Cap) 1 cap PO Q7D [facility] Last Admin: 06/04/17 13:40 Dose: 1 cap Famotidine (Pepcid) 20 mg PO DAILY [facility] Last Admin: 06/07/17 10:56 Dose: Not Given Ferrous Gluconate (Fergon) 324 mg PO TID [facility] Last Admin: 06/07/17 14:05 Dose: Not Given Fluoxetine HCl (Prozac) 20 mg PO DAILY [facility] Last Admin: 06/07/17 09:48 Dose: Not Given Hydralazine HCl (Apresoline) 25 mg PO Q4 PRN PRN Reason: Other Last Admin: 05/28/17 05:44 Dose: 25 mg Cefazolin Sodium/Dextrose (Ancef Iv 2 Gm Duplex) 1 gm in 50 mls @ 100 mls/hr IVPB TTS [facility] Last Admin: 06/06/17 10:30 Dose: 100 mls/hr Heparin Sodium/Sodium Chloride (Heparin 21367 Units/250ml 1/2 Normal Saline) 25 ,000 units in 250 mls @ 13.444 mls/hr IV .[id number] PRN; Protocol; 12 UNITS/KG/HR PRN Reason: ADJUST RATE PER PROTOCOL Last Admin: 06/06/17 19:29 Dose: 12 units/kg/hr, 13.444 mls/hr Insulin Aspart (Novolog) 0 unit SC ACHS [facility] PRN Reason: Protocol Last Admin: 06/07/17 11:41 Dose: Not Given Lactulose (Enulose) 20 gm PO HS [facility] Last Admin: 06/06/17 21:07 Dose: 20 gm Losartan Potassium (Cozaar) 100 mg PO QPM [facility] Rosuvastatin Calcium (Crestor) 10 mg PO HS [facility] Last Admin: 06/06/17 21:07 Dose: 10 mg Sucralfate (Carafate Tab) 1 gm PO BID [facility] Last Admin: 06/07/17 09:45 Dose: Not Given Vitamin B Complex/Vit C/Folic Acid (Nephro-Naren) 1 tab PO DAILY [facility] Last Admin: 06/07/17 09:48 Dose: Not Given - Labs Labs: 06/07/17 07:43 06/07/17 07:43 PT 13.5 SECONDS (9.7-12.2) H 05/28/17 06:43 INR 1.2 05/28/17 06:43 APTT 44 SECONDS (21-34) H D 06/07/17 07:43
[2017-06-08] MEDS: Heparin25000 units/250ml 1/2NS 25,000 UNITS/250 ML BAG IV PRN ×2 (01:11→22:28)
[2017-06-08 07:27] LABS: BASO % 0.5 % (0.0-2.0); EOS # 0.3 K/uL (0.0-0.7); EOS % 4.3 % (0.0-4.0); HEMATOCRIT 28.7 % (34.0-47.0); LYMPH % 14.8 % (20.0-40.0); MEAN CELL VOLUME 94.3 fL (81.0-99.0); MEAN CORPUSCULAR HEMOGLOBIN 29.6 pg (27.0-31.0); MEAN CORPUSCULAR HGB CONC 31.4 g/dL (33.0-37.0); MEAN PLATELET VOLUME 8.9 fL (7.2-11.7); MONO % 14.6 % (0.0-10.0); NRBC % 0.5 % (0.0-2.0); RED CELL DISTRIBUTION WIDTH 19.7 % (11.5-14.5); WHITE BLOOD COUNT 6.7 K/uL (4.8-10.8)
[2017-06-08 07:58] LABS: BILIRUBIN,TOTAL 0.7 mg/dL (0.2-1.3); CALCIUM 8.4 mg/dl (8.6-10.4); MAGNESIUM 2.1 mg/dL (1.6-2.3); PHOSPHOROUS 3.3 mg/dL (2.5-4.5); POTASSIUM 4.2 mmol/L (3.6-5.2); TOTAL PROTEIN 6.3 g/dL (6.3-8.3)
--- NOTE | 2017-06-08 08:53 | RAD ---
HISTORY: preop prior showed chf COMPARISON: Portable chest 05/25/2017. TECHNIQUE: Chest PA and lateral FINDINGS: LUNGS: No active pulmonary disease. PLEURA: No significant pleural effusion identified. No pneumothorax apparent. CARDIOVASCULAR: Cardiomegaly again appreciated with [id number] residual pulmonary venous congestion remaining. External pacer appears to have been removed. OSSEOUS STRUCTURES: No significant abnormalities. VISUALIZED UPPER ABDOMEN: Normal. OTHER FINDINGS: None. IMPRESSION: Diminishing CHF pattern with no new airspace disease appreciable. Stable cardiomegaly.
[2017-06-08] MEDS: Epoetin Alfa 10,000 unit/ml Dialysis IV SCH (10:17)
[2017-06-08] MEDS: Epoetin Alfa Dialysis 3000 UNIT/ML Inj IV SCH (10:17)
[2017-06-08] MEDS: (Novolog) Insulin Aspart, Recombinant 100 u/ml 10 ml vial SC SCH ×4 (11:49→22:07)
[2017-06-08] MEDS: ceFAZolin IV 2 gm in Dextrose 1 GM/50 ML BAG IVPB SCH (13:57)
[2017-06-08] MEDS: Multivitamin Vitamin B Complex (Nephro-Vite) Tab PO SCH (15:25)
--- NOTE | 2017-06-08 16:59 | CP.PCM.PN ---
Subjective - Date & Time of Evaluation Date of Evaluation: 06/08/17 Time of Evaluation: 16:59 - Subjective Subjective: renal follow up note please call us at [phone] if any qs. no events overnight Physical Examination: General Appearance: Comfortable, in no acute respiratory distress, co-operative . obese Lungs: Normal respiratory rate/effort. Heart: Normal rate. s1s2 normal. Extremities: 1+ edema. has chronic venous stasis changes. both feets in dressings. Neurological: Patient is alert, awake and not oriented to person, place or time. Skin: Warm and dry. Normal turgor. Abdomen: Abdomen is soft. Bowel sounds +. Access: permacath Rt IJ PLAN: TRINITY/REUBEN/CKD stage 4/htn/dm/anemia/morbid obesity/sec hyperpth hd since may 23 for avf creation this hd tts, continue per schedule check labs on hd days continue epo with hd continue binders Objective - Vital Signs/Intake and Output Vital Signs (last 24 hours): Temp Pulse Resp BP Pulse Ox 97.4 F L 68 18 169/98 H 100 06/08/17 12:30 06/08/17 15:30 06/08/17 12:30 06/08/17 12:30 06/08/17 12:30 - Medications Medications: Current Medications Acetaminophen (Tylenol 325mg Tab) 650 mg PO Q6 PRN PRN Reason: Pain, moderate (4-7) Aspirin (Aspirin Chewable) 81 mg PO DAILY [facility] Last Admin: 06/08/17 13:56 Dose: 81 mg Calcium Acetate (Phoslo) 667 mg PO TIDAC [facility] Last Admin: 06/08/17 13:00 Dose: 667 mg Carvedilol (Coreg) 3.125 mg PO BID [facility] Last Admin: 06/08/17 11:51 Dose: Not Given Clopidogrel Bisulfate (Plavix) 75 mg PO DAILY [facility] Last Admin: 06/08/17 13:56 Dose: 75 mg Dextrose (Dextrose 50% Inj) 0 ml IV STAT PRN; Protocol PRN Reason: Hypoglycemia Protocol Dextrose (Glutose 15) 0 gm PO ONCE PRN; Protocol PRN Reason: Hypoglycemia Protocol Epoetin Etienne (Procrit) 10,000 unit IV TTS [facility] Last Admin: 06/08/17 10:17 Dose: 10,000 unit Epoetin Etienne (Procrit) 6,000 unit IV TTS [facility] Last Admin: 06/08/17 10:17 Dose: 6,000 unit Ergocalciferol (Drisdol 50,000 Intl Units Cap) 1 cap PO Q7D [facility] Last Admin: 06/04/17 13:40 Dose: 1 cap Famotidine (Pepcid) 20 mg PO DAILY [facility] Last Admin: 06/08/17 13:56 Dose: 20 mg Ferrous Gluconate (Fergon) 324 mg PO TID [facility] Last Admin: 06/08/17 14:03 Dose: 324 mg Fluoxetine HCl (Prozac) 20 mg PO DAILY [facility] Last Admin: 06/08/17 15:27 Dose: Not Given Hydralazine HCl (Apresoline) 25 mg PO Q4 PRN PRN Reason: Other Last Admin: 05/28/17 05:44 Dose: 25 mg Cefazolin Sodium/Dextrose (Ancef Iv 2 Gm Duplex) 1 gm in 50 mls @ 100 mls/hr IVPB TTS [facility] Last Admin: 06/08/17 13:57 Dose: 100 mls/hr Heparin Sodium/Sodium Chloride (Heparin 05346 Units/250ml 1/2 Normal Saline) 25 ,000 units in 250 mls @ 13.444 mls/hr IV .[id number] PRN; Protocol; 12 UNITS/KG/HR PRN Reason: ADJUST RATE PER PROTOCOL Last Admin: 06/08/17 01:11 Dose: 12 units/kg/hr, 13.444 mls/hr Insulin Aspart (Novolog) 0 unit SC ACHS [facility] PRN Reason: Protocol Last Admin: 06/08/17 15:25 Dose: Not Given Lactulose (Enulose) 20 gm PO HS [facility] Last Admin: 06/07/17 21:55 Dose: 20 gm Losartan Potassium (Cozaar) 100 mg PO QPM [facility] Last Admin: 06/07/17 18:00 Dose: 100 mg Rosuvastatin Calcium (Crestor) 10 mg PO HS [facility] Last Admin: 06/07/17 21:54 Dose: 10 mg Sucralfate (Carafate Tab) 1 gm PO BID [facility] Last Admin: 06/08/17 11:51 Dose: Not Given Vitamin B Complex/Vit C/Folic Acid (Nephro-Naren) 1 tab PO DAILY [facility] Last Admin: 06/08/17 15:25 Dose: 1 tab - Labs Labs: 12/02/17 07:12 06/08/17 07:12 PT 13.5 SECONDS (9.7-12.2) H 05/28/17 06:43 INR 1.2 05/28/17 06:43 APTT 76 SECONDS (21-34) H D 06/08/17 07:12
--- NOTE | 2017-06-08 22:56 | CP.PCM.PN ---
Subjective - Date & Time of Evaluation Date of Evaluation: 06/08/17 Time of Evaluation: 07:10 - Subjective Subjective: Vascular Surgery Progress note. Dr. Romero Pt seen and examined at bedside. Patient laying in bed with covers over her head. Easily awoken. Denies any new complaints. No acute events overnight. No F/ C. No N/V/D. No acute distress. Objective - Vital Signs/Intake and Output Vital Signs (last 24 hours): Temp Pulse Resp BP Pulse Ox 97.5 F L 68 18 153/82 H 100 06/08/17 17:05 06/08/17 17:05 06/08/17 17:05 06/08/17 17:05 06/08/17 17:05 Intake and Output: 06/08/17 06/09/17 18:59 06:59 Intake Total 250 Balance 250 - Medications Medications: Current Medications Acetaminophen (Tylenol 325mg Tab) 650 mg PO Q6 PRN PRN Reason: Pain, moderate (4-7) Aspirin (Aspirin Chewable) 81 mg PO DAILY [facility] Last Admin: 06/08/17 13:56 Dose: 81 mg Calcium Acetate (Phoslo) 667 mg PO TIDAC [facility] Last Admin: 06/08/17 17:20 Dose: 667 mg Carvedilol (Coreg) 3.125 mg PO BID [facility] Last Admin: 06/08/17 17:20 Dose: 3.125 mg Clopidogrel Bisulfate (Plavix) 75 mg PO DAILY [facility] Last Admin: 06/08/17 13:56 Dose: 75 mg Dextrose (Dextrose 50% Inj) 0 ml IV STAT PRN; Protocol PRN Reason: Hypoglycemia Protocol Dextrose (Glutose 15) 0 gm PO ONCE PRN; Protocol PRN Reason: Hypoglycemia Protocol Epoetin Etienne (Procrit) 10,000 unit IV TTS [facility] Last Admin: 06/08/17 10:17 Dose: 10,000 unit Epoetin Etienne (Procrit) 6,000 unit IV TTS [facility] Last Admin: 06/08/17 10:17 Dose: 6,000 unit Ergocalciferol (Drisdol 50,000 Intl Units Cap) 1 cap PO Q7D [facility] Last Admin: 06/04/17 13:40 Dose: 1 cap Famotidine (Pepcid) 20 mg PO DAILY [facility] Last Admin: 06/08/17 13:56 Dose: 20 mg Ferrous Gluconate (Fergon) 324 mg PO TID [facility] Last Admin: 06/08/17 17:20 Dose: 324 mg Fluoxetine HCl (Prozac) 20 mg PO DAILY [facility] Last Admin: 06/08/17 15:27 Dose: Not Given Hydralazine HCl (Apresoline) 25 mg PO Q4 PRN PRN Reason: Other Last Admin: 05/28/17 05:44 Dose: 25 mg Cefazolin Sodium/Dextrose (Ancef Iv 2 Gm Duplex) 1 gm in 50 mls @ 100 mls/hr IVPB TTS [facility] Last Admin: 06/08/17 13:57 Dose: 100 mls/hr Heparin Sodium/Sodium Chloride (Heparin 17045 Units/250ml 1/2 Normal Saline) 25 ,000 units in 250 mls @ 13.444 mls/hr IV .[id number] PRN; Protocol; 12 UNITS/KG/HR PRN Reason: ADJUST RATE PER PROTOCOL Last Admin: 06/08/17 22:28 Dose: 12 units/kg/hr, 13.444 mls/hr Insulin Aspart (Novolog) 0 unit SC ACHS [facility] PRN Reason: Protocol Last Admin: 06/08/17 22:07 Dose: Not Given Lactulose (Enulose) 20 gm PO HS [facility] Last Admin: 06/08/17 21:32 Dose: Not Given Losartan Potassium (Cozaar) 100 mg PO QPM [facility] Last Admin: 06/08/17 17:20 Dose: 100 mg Rosuvastatin Calcium (Crestor) 10 mg PO HS [facility] Last Admin: 06/08/17 21:30 Dose: 10 mg Sucralfate (Carafate Tab) 1 gm PO BID [facility] Last Admin: 06/08/17 17:20 Dose: Not Given Vitamin B Complex/Vit C/Folic Acid (Nephro-Naren) 1 tab PO DAILY [facility] Last Admin: 06/08/17 15:25 Dose: 1 tab - Labs Labs: 06/08/17 07:12 06/08/17 07:12 PT 13.5 SECONDS (9.7-12.2) H 05/28/17 06:43 INR 1.2 05/28/17 06:43 APTT 76 SECONDS (21-34) H D 06/08/17 07:12 - Constitutional Appears: Non-toxic, No Acute Distress - Head Exam Head Exam: ATRAUMATIC, NORMAL INSPECTION, NORMOCEPHALIC - Eye Exam Eye Exam: EOMI, Normal appearance - ENT Exam ENT Exam: Mucous Membranes Moist - Respiratory Exam Respiratory Exam: NORMAL BREATHING PATTERN. absent: Accessory Muscle Use, Respiratory Distress - GI/Abdominal Exam GI & Abdominal Exam: Soft. absent: Distended, Firm, Guarding, Rigid, Tenderness - Extremities Exam Additional comments: left arm precautions arm band noted. Lower extremity swelling. No Calf tenderness - Neurological Exam Neurological Exam: Alert, Awake, Oriented x3 - Skin Skin Exam: Dry, Intact, Normal Color, Warm Assessment and Plan - Assessment and Plan (Free Text) Assessment: 67yo F with left heel gangrene and ESRD. Right Jugular vein DVT, on heparin ggt. S/p aortofemoral angio with L popliteal and L posterior tibial arthrectomy with balloon angioplasy 06/03. S/p permacath placement 05/23. Awaiting AVF creation - Possible OR Saturday, 06/10 for AV fistula - Continue heparin drip as per protocol - NPO past mn Saturday Further recs as per Dr. Heather Sigala PGY1 surgery pager: [phone]
[2017-06-09 07:43] LABS: BASO % 0.4 % (0.0-2.0); EOS # 0.4 K/uL (0.0-0.7); EOS % 4.9 % (0.0-4.0); HEMATOCRIT 29.8 % (34.0-47.0); LYMPH # 1.1 K/uL (1.0-4.3); MEAN CELL VOLUME 95.3 fL (81.0-99.0); MEAN CORPUSCULAR HEMOGLOBIN 29.4 pg (27.0-31.0); MEAN CORPUSCULAR HGB CONC 30.8 g/dL (33.0-37.0); MEAN PLATELET VOLUME 8.7 fL (7.2-11.7); MONO # 1.2 K/uL (0.0-0.8); MONO % 15.9 % (0.0-10.0); NRBC % 0.7 % (0.0-2.0); RED CELL DISTRIBUTION WIDTH 19.9 % (11.5-14.5); WHITE BLOOD COUNT 7.5 K/uL (4.8-10.8)
[2017-06-09] MEDS: (Novolog) Insulin Aspart, Recombinant 100 u/ml 10 ml vial SC SCH ×4 (07:48→22:30)
[2017-06-09 08:06] LABS: ALB/GLOB RATIO 1.1 (1.0-2.1); BILIRUBIN,TOTAL 0.7 mg/dL (0.2-1.3); CALCIUM 8.1 mg/dl (8.6-10.4); PHOSPHOROUS 2.8 mg/dL (2.5-4.5); POTASSIUM 3.9 mmol/L (3.6-5.2); TOTAL PROTEIN 6.5 g/dL (6.3-8.3)
[2017-06-09] MEDS: Multivitamin Vitamin B Complex (Nephro-Vite) Tab PO SCH (10:52)
--- NOTE | 2017-06-09 12:03 | CP.PCM.PN ---
Subjective - Date & Time of Evaluation Date of Evaluation: 06/09/17 Time of Evaluation: 08:00 - Subjective Subjective: Vascular surgery progress note. Dr. Romero Pt seen and examined at bedside. No acute events overnight. Denies any new complaints. No F/C. No N/V/D. No Abd pain. Left arm precautions in place. Objective - Vital Signs/Intake and Output Vital Signs (last 24 hours): Temp Pulse Resp BP Pulse Ox 97.9 F 72 20 171/75 H 97 06/09/17 07:20 06/09/17 07:20 06/09/17 07:20 06/09/17 07:20 06/09/17 07:20 Intake and Output: 06/09/17 06/09/17 06:59 18:59 Intake Total 250 227.2 Balance 250 227.2 - Medications Medications: Current Medications Acetaminophen (Tylenol 325mg Tab) 650 mg PO Q6 PRN PRN Reason: Pain, moderate (4-7) Aspirin (Aspirin Chewable) 81 mg PO DAILY [facility] Last Admin: 06/09/17 10:51 Dose: 81 mg Calcium Acetate (Phoslo) 667 mg PO TIDAC [facility] Last Admin: 06/09/17 07:50 Dose: 667 mg Carvedilol (Coreg) 3.125 mg PO BID [facility] Last Admin: 06/09/17 10:52 Dose: 3.125 mg Clopidogrel Bisulfate (Plavix) 75 mg PO DAILY [facility] Last Admin: 06/09/17 10:51 Dose: 75 mg Dextrose (Dextrose 50% Inj) 0 ml IV STAT PRN; Protocol PRN Reason: Hypoglycemia Protocol Dextrose (Glutose 15) 0 gm PO ONCE PRN; Protocol PRN Reason: Hypoglycemia Protocol Epoetin Etienne (Procrit) 10,000 unit IV TTS [facility] Last Admin: 06/08/17 10:17 Dose: 10,000 unit Epoetin Etienne (Procrit) 6,000 unit IV TTS [facility] Last Admin: 06/08/17 10:17 Dose: 6,000 unit Ergocalciferol (Drisdol 50,000 Intl Units Cap) 1 cap PO Q7D [facility] Last Admin: 06/04/17 13:40 Dose: 1 cap Famotidine (Pepcid) 20 mg PO DAILY [facility] Last Admin: 06/09/17 10:52 Dose: 20 mg Ferrous Gluconate (Fergon) 324 mg PO TID [facility] Last Admin: 06/09/17 10:52 Dose: 324 mg Fluoxetine HCl (Prozac) 20 mg PO DAILY [facility] Last Admin: 06/09/17 10:52 Dose: 20 mg Hydralazine HCl (Apresoline) 25 mg PO Q4 PRN PRN Reason: Other Last Admin: 05/28/17 05:44 Dose: 25 mg Heparin Sodium/Sodium Chloride (Heparin 69654 Units/250ml 1/2 Normal Saline) 25 ,000 units in 250 mls @ 13.444 mls/hr IV .[id number] PRN; Protocol; 12 UNITS/KG/HR PRN Reason: ADJUST RATE PER PROTOCOL Last Admin: 06/08/17 22:28 Dose: 12 units/kg/hr, 13.444 mls/hr Insulin Aspart (Novolog) 0 unit SC ACHS [facility] PRN Reason: Protocol Last Admin: 06/09/17 07:48 Dose: Not Given Lactulose (Enulose) 20 gm PO HS [facility] Last Admin: 06/08/17 21:32 Dose: Not Given Losartan Potassium (Cozaar) 100 mg PO QPM [facility] Last Admin: 06/08/17 17:20 Dose: 100 mg Rosuvastatin Calcium (Crestor) 10 mg PO HS [facility] Last Admin: 06/08/17 21:30 Dose: 10 mg Sucralfate (Carafate Tab) 1 gm PO BID [facility] Last Admin: 06/09/17 10:51 Dose: 1 gm Vitamin B Complex/Vit C/Folic Acid (Nephro-Naren) 1 tab PO DAILY [facility] Last Admin: 06/09/17 10:52 Dose: 1 tab - Labs Labs: 06/09/17 07:24 06/09/17 07:24 PT 13.5 SECONDS (9.7-12.2) H 05/28/17 06:43 INR 1.2 05/28/17 06:43 APTT 86 SECONDS (21-34) H D 06/09/17 07:24 - Constitutional Appears: Well, No Acute Distress, Older Than Stated Age, Chronically Ill - Head Exam Head Exam: ATRAUMATIC, NORMAL INSPECTION, NORMOCEPHALIC - Eye Exam Eye Exam: EOMI - ENT Exam ENT Exam: Mucous Membranes Moist - Respiratory Exam Respiratory Exam: NORMAL BREATHING PATTERN. absent: Accessory Muscle Use, Respiratory Distress - Cardiovascular Exam Cardiovascular Exam: +S1, +S2. absent: JVD - GI/Abdominal Exam GI & Abdominal Exam: Soft. absent: Distended, Firm, Guarding, Rigid, Tenderness - Extremities Exam Additional comments: left arm precautions bracelet in place. distal pulses palpable. Lower extremity edema noted bilaterally. - Neurological Exam Neurological Exam: Alert, Awake - Psychiatric Exam Psychiatric exam: Normal Affect, Normal Mood Assessment and Plan - Assessment and Plan (Free Text) Assessment: 67yo F with left heel gangrene and ESRD. Right Jugular vein DVT, on heparin ggt. S/p aortofemoral angio with L popliteal and L posterior tibial arthrectomy with balloon angioplasy 06/03. S/p permacath placement 05/23. Awaiting AVF creation - Possible OR Saturday, 06/10 for AV fistula - Continue heparin drip as per protocol - NPO past mn Saturday - f/u AM labs - Will obtain consent in the AM Further recs as per Dr. Heatehr Sigala PGY1 surgery pager: [phone]
--- NOTE | 2017-06-09 14:29 | CP.PCM.PN ---
Subjective - Date & Time of Evaluation Date of Evaluation: 06/09/17 Time of Evaluation: 08:00 - Subjective Subjective: awake alert iv rx in progress for or in am Objective - Vital Signs/Intake and Output Vital Signs (last 24 hours): Temp Pulse Resp BP Pulse Ox 97.9 F 72 20 171/75 H 97 06/09/17 07:20 06/09/17 07:20 06/09/17 07:20 06/09/17 07:20 06/09/17 07:20 Intake and Output: 06/09/17 06/09/17 06:59 18:59 Intake Total 250 227.2 Balance 250 227.2 - Medications Medications: Current Medications Acetaminophen (Tylenol 325mg Tab) 650 mg PO Q6 PRN PRN Reason: Pain, moderate (4-7) Aspirin (Aspirin Chewable) 81 mg PO DAILY [facility] Last Admin: 06/09/17 10:51 Dose: 81 mg Calcium Acetate (Phoslo) 667 mg PO TIDAC [facility] Last Admin: 06/09/17 12:00 Dose: 667 mg Carvedilol (Coreg) 3.125 mg PO BID [facility] Last Admin: 06/09/17 10:52 Dose: 3.125 mg Clopidogrel Bisulfate (Plavix) 75 mg PO DAILY [facility] Last Admin: 06/09/17 10:51 Dose: 75 mg Dextrose (Dextrose 50% Inj) 0 ml IV STAT PRN; Protocol PRN Reason: Hypoglycemia Protocol Dextrose (Glutose 15) 0 gm PO ONCE PRN; Protocol PRN Reason: Hypoglycemia Protocol Epoetin Etienne (Procrit) 10,000 unit IV TTS [facility] Last Admin: 06/08/17 10:17 Dose: 10,000 unit Epoetin Etienne (Procrit) 6,000 unit IV TTS [facility] Last Admin: 06/08/17 10:17 Dose: 6,000 unit Ergocalciferol (Drisdol 50,000 Intl Units Cap) 1 cap PO Q7D [facility] Last Admin: 06/04/17 13:40 Dose: 1 cap Famotidine (Pepcid) 20 mg PO DAILY [facility] Last Admin: 06/09/17 10:52 Dose: 20 mg Ferrous Gluconate (Fergon) 324 mg PO TID [facility] Last Admin: 06/09/17 13:07 Dose: 324 mg Fluoxetine HCl (Prozac) 20 mg PO DAILY [facility] Last Admin: 06/09/17 10:52 Dose: 20 mg Hydralazine HCl (Apresoline) 25 mg PO Q4 PRN PRN Reason: Other Last Admin: 05/28/17 05:44 Dose: 25 mg Heparin Sodium/Sodium Chloride (Heparin 08549 Units/250ml 1/2 Normal Saline) 25 ,000 units in 250 mls @ 13.444 mls/hr IV .[id number] PRN; Protocol; 12 UNITS/KG/HR PRN Reason: ADJUST RATE PER PROTOCOL Last Admin: 06/08/17 22:28 Dose: 12 units/kg/hr, 13.444 mls/hr Insulin Aspart (Novolog) 0 unit SC ACHS [facility] PRN Reason: Protocol Last Admin: 06/09/17 12:00 Dose: 2 unit Lactulose (Enulose) 20 gm PO HS [facility] Last Admin: 06/08/17 21:32 Dose: Not Given Losartan Potassium (Cozaar) 100 mg PO QPM [facility] Last Admin: 06/08/17 17:20 Dose: 100 mg Rosuvastatin Calcium (Crestor) 10 mg PO HS [facility] Last Admin: 06/08/17 21:30 Dose: 10 mg Sucralfate (Carafate Tab) 1 gm PO BID [facility] Last Admin: 06/09/17 10:51 Dose: 1 gm Vitamin B Complex/Vit C/Folic Acid (Nephro-Naren) 1 tab PO DAILY [facility] Last Admin: 06/09/17 10:52 Dose: 1 tab - Labs Labs: 06/09/17 07:24 06/09/17 07:24 PT 13.5 SECONDS (9.7-12.2) H 05/28/17 06:43 INR 1.2 05/28/17 06:43 APTT 86 SECONDS (21-34) H D 06/09/17 07:24 - Constitutional Appears: Non-toxic, Chronically Ill - Head Exam Head Exam: NORMOCEPHALIC - Eye Exam Eye Exam: PERRL. absent: Scleral icterus - ENT Exam ENT Exam: Mucous Membranes Dry - Neck Exam Neck Exam: absent: Lymphadenopathy - Respiratory Exam Respiratory Exam: Decreased Breath Sounds - Cardiovascular Exam Cardiovascular Exam: REGULAR RHYTHM - GI/Abdominal Exam GI & Abdominal Exam: Distended, Soft - Rectal Exam Rectal Exam: Deferred - Exam Exam: NORMAL INSPECTION - Extremities Exam Extremities Exam: absent: Pedal Edema - Back Exam Back Exam: absent: CVA tenderness (L), CVA tenderness (R) - Neurological Exam Neurological Exam: Alert, Awake - Psychiatric Exam Psychiatric exam: Normal Mood - Skin Skin Exam: Dry Assessment and Plan (1) Acute on chronic renal failure Status: Acute (2) Dehydration Status: Acute (3) Diabetic infection of right foot Status: Acute (4) Anemia Status: Chronic (5) Chronic heel ulcer Status: Acute - Assessment and Plan (Free Text) Assessment: 67yo F with left heel gangrene and ESRD. Right Jugular vein DVT, on heparin ggt. S/p aortofemoral angio with L popliteal and L posterior tibial arthrectomy with balloon angioplasy 06/03. S/p permacath placement 05/23. Awaiting AVF creation - Possible OR Saturday, 06/10 for AV fistula
--- NOTE | 2017-06-09 21:31 | CP.PCM.PN ---
Subjective - Date & Time of Evaluation Date of Evaluation: 06/09/17 Time of Evaluation: 14:05 - Subjective Subjective: Patient seen and evaluated Moderate CAD PCI after the surgery Denies chest pain and dyspnea Physical examination - Constitutional Appears: Non-toxic, No Acute Distress - Head Exam Head Exam: NORMAL INSPECTION - Eye Exam Eye Exam: EOMI - ENT Exam ENT Exam: Mucous Membranes Moist - Respiratory Exam Respiratory Exam: Clear to Ausculation Bilateral, NORMAL BREATHING PATTERN. absent: Rales, Rhonchi, Wheezes - Cardiovascular Exam Cardiovascular Exam: REGULAR RHYTHM, +S1, +S2. absent: Gallop, Rubs, Murmur - GI/Abdominal Exam GI & Abdominal Exam: Soft, Normal Bowel Sounds. absent: Tenderness - Extremities Exam Extremities Exam: Pedal Edema Additional comments: pitting edema and venous stasis changes to mid calf b/l negative Shiloh's Warm toes b/l Right heel wrapped in clean bandage odorous feet - Neurological Exam Neurological Exam: Alert, Awake, Oriented x3 - Psychiatric Exam Psychiatric exam: Normal Affect, Normal Mood - Skin Skin Exam: Normal Color, Warm Objective - Vital Signs/Intake and Output Vital Signs (last 24 hours): Temp Pulse Resp BP Pulse Ox 97.4 F L 71 19 163/89 H 97 06/09/17 15:31 06/09/17 15:31 06/09/17 15:31 06/09/17 15:31 06/09/17 15:31 Intake and Output: 06/09/17 06/10/17 18:59 06:59 Intake Total 477.2 Balance 477.2 - Medications Medications: Current Medications Acetaminophen (Tylenol 325mg Tab) 650 mg PO Q6 PRN PRN Reason: Pain, moderate (4-7) Aspirin (Aspirin Chewable) 81 mg PO DAILY [facility] Last Admin: 06/09/17 10:51 Dose: 81 mg Calcium Acetate (Phoslo) 667 mg PO TIDAC [facility] Last Admin: 06/09/17 17:00 Dose: 667 mg Carvedilol (Coreg) 3.125 mg PO BID [facility] Last Admin: 06/09/17 17:52 Dose: 3.125 mg Clopidogrel Bisulfate (Plavix) 75 mg PO DAILY [facility] Last Admin: 06/09/17 10:51 Dose: 75 mg Dextrose (Dextrose 50% Inj) 0 ml IV STAT PRN; Protocol PRN Reason: Hypoglycemia Protocol Dextrose (Glutose 15) 0 gm PO ONCE PRN; Protocol PRN Reason: Hypoglycemia Protocol Epoetin Etienne (Procrit) 10,000 unit IV TTS [facility] Last Admin: 06/08/17 10:17 Dose: 10,000 unit Epoetin Etienne (Procrit) 6,000 unit IV TTS [facility] Last Admin: 06/08/17 10:17 Dose: 6,000 unit Ergocalciferol (Drisdol 50,000 Intl Units Cap) 1 cap PO Q7D [facility] Last Admin: 06/04/17 13:40 Dose: 1 cap Famotidine (Pepcid) 20 mg PO DAILY [facility] Last Admin: 06/09/17 10:52 Dose: 20 mg Ferrous Gluconate (Fergon) 324 mg PO TID [facility] Last Admin: 06/09/17 13:07 Dose: 324 mg Fluoxetine HCl (Prozac) 20 mg PO DAILY [facility] Last Admin: 06/09/17 10:52 Dose: 20 mg Hydralazine HCl (Apresoline) 25 mg PO Q4 PRN PRN Reason: Other Last Admin: 05/28/17 05:44 Dose: 25 mg Cefazolin Sodium (Ancef) 1 gm in 50 mls @ 100 mls/hr IVPB TTS [facility] Insulin Aspart (Novolog) 0 unit SC ACHS [facility] PRN Reason: Protocol Lactulose (Enulose) 20 gm PO HS [facility] Last Admin: 06/08/17 21:32 Dose: Not Given Losartan Potassium (Cozaar) 100 mg PO QPM [facility] Last Admin: 06/09/17 17:54 Dose: 100 mg Rosuvastatin Calcium (Crestor) 10 mg PO HS [facility] Last Admin: 06/08/17 21:30 Dose: 10 mg Sucralfate (Carafate Tab) 1 gm PO BID [facility] Last Admin: 06/09/17 17:52 Dose: 1 gm Vitamin B Complex/Vit C/Folic Acid (Nephro-Naren) 1 tab PO DAILY [facility] Last Admin: 06/09/17 10:52 Dose: 1 tab - Labs Labs: 06/09/17 07:24 06/09/17 07:24 PT 13.5 SECONDS (9.7-12.2) H 05/28/17 06:43 INR 1.2 05/28/17 06:43 APTT 53 SECONDS (21-34) H D 06/09/17 14:14 Assessment and Plan - Assessment and Plan (Free Text) Assessment: 1, 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 DM 2 3. HTN 4. PAD 5. Hyperlipidemia 6. CKD on HD Recommend LifeVest after AV fistula L Cx PCI after AV fistula Moderate risk for cardiac events for AV fistula surgery under general anaesthesia
[2017-06-10 06:33] LABS: BASO # 0.1 K/uL (0.0-0.2); BASO % 0.7 % (0.0-2.0); EOS # 0.4 K/uL (0.0-0.7); EOS % 4.9 % (0.0-4.0); HEMATOCRIT 29.5 % (34.0-47.0); LYMPH # 1.2 K/uL (1.0-4.3); LYMPH % 15.5 % (20.0-40.0); MEAN CORPUSCULAR HEMOGLOBIN 29.3 pg (27.0-31.0); MEAN CORPUSCULAR HGB CONC 31.2 g/dL (33.0-37.0); MEAN PLATELET VOLUME 8.6 fL (7.2-11.7); MONO # 1.1 K/uL (0.0-0.8); NRBC % 0.4 % (0.0-2.0); RED CELL DISTRIBUTION WIDTH 19.5 % (11.5-14.5); WHITE BLOOD COUNT 7.6 K/uL (4.8-10.8)
[2017-06-10 06:41] LABS: INR 1.1
[2017-06-10 06:54] LABS: ALB/GLOB RATIO 1.1 (1.0-2.1); BILIRUBIN,TOTAL 0.5 mg/dL (0.2-1.3); CALCIUM 8.3 mg/dl (8.6-10.4); MAGNESIUM 2.1 mg/dL (1.6-2.3); PHOSPHOROUS 3.4 mg/dL (2.5-4.5); TOTAL PROTEIN 6.7 g/dL (6.3-8.3)
[2017-06-10] MEDS: (Novolog) Insulin Aspart, Recombinant 100 u/ml 10 ml vial SC SCH ×4 (07:56→21:03)
[2017-06-10] MEDS ORDERED: Lidocaine 1% Inj (20ml) ONE (09:29)
[2017-06-10] MEDS ORDERED: HEPARIN-NS 5,000 UNITS/500 ML 5,000 UNIT/500 ML BAG IV ONE (09:29)
[2017-06-10] MEDS ORDERED: ceFAZolin IV 2 gm in Dextrose 2 GM/50 ML BAG IVPB ONE (09:29)
[2017-06-10] MEDS ORDERED: Midazolam 2 MG/2 ML VIAL ONE (09:43)
[2017-06-10] MEDS ORDERED: Propofol 10 mg/ml Inj (20 ML) ONE (09:43)
[2017-06-10] MEDS ORDERED: Lidocaine Hydrochloride 5 ML INJ ONE (09:44)
[2017-06-10] MEDS ORDERED: Etomidate 20 mg/10ml Inj IV ONE (09:44)
--- NOTE | 2017-06-10 09:55 | CP.PCM.PN ---
Subjective - Date & Time of Evaluation Date of Evaluation: 06/10/17 Time of Evaluation: 09:55 - Subjective Subjective: PGY2 Medicine Note for Dr. Denis; all management as per Dr. Denis Patient examined at bedside; patient is for surgery today; will f/u with surgery for recs Objective - Vital Signs/Intake and Output Vital Signs (last 24 hours): Temp Pulse Resp BP Pulse Ox 98.0 F 68 20 146/55 L 97 06/10/17 07:59 06/10/17 07:59 06/10/17 07:59 06/10/17 07:59 06/10/17 07:59 Intake and Output: 06/10/17 06/10/17 06:59 18:59 Intake Total 333.4 Balance 333.4 - Medications Medications: Current Medications Acetaminophen (Tylenol 325mg Tab) 650 mg PO Q6 PRN PRN Reason: Pain, moderate (4-7) Aspirin (Aspirin Chewable) 81 mg PO DAILY [facility] Last Admin: 06/09/17 10:51 Dose: 81 mg Calcium Acetate (Phoslo) 667 mg PO TIDAC [facility] Last Admin: 06/10/17 07:57 Dose: Not Given Carvedilol (Coreg) 3.125 mg PO BID [facility] Last Admin: 06/09/17 17:52 Dose: 3.125 mg Clopidogrel Bisulfate (Plavix) 75 mg PO DAILY [facility] Last Admin: 06/09/17 10:51 Dose: 75 mg Dextrose (Dextrose 50% Inj) 0 ml IV STAT PRN; Protocol PRN Reason: Hypoglycemia Protocol Dextrose (Glutose 15) 0 gm PO ONCE PRN; Protocol PRN Reason: Hypoglycemia Protocol Epoetin Etienne (Procrit) 10,000 unit IV TTS [facility] Last Admin: 06/08/17 10:17 Dose: 10,000 unit Epoetin Etienne (Procrit) 6,000 unit IV TTS [facility] Last Admin: 06/08/17 10:17 Dose: 6,000 unit Ergocalciferol (Drisdol 50,000 Intl Units Cap) 1 cap PO Q7D [facility] Last Admin: 06/04/17 13:40 Dose: 1 cap Famotidine (Pepcid) 20 mg PO DAILY [facility] Last Admin: 06/09/17 10:52 Dose: 20 mg Ferrous Gluconate (Fergon) 324 mg PO TID [facility] Last Admin: 06/09/17 19:30 Dose: 324 mg Fluoxetine HCl (Prozac) 20 mg PO DAILY [facility] Last Admin: 06/09/17 10:52 Dose: 20 mg Hydralazine HCl (Apresoline) 25 mg PO Q4 PRN PRN Reason: Other Last Admin: 06/10/17 01:00 Dose: 25 mg Cefazolin Sodium (Ancef) 1 gm in 50 mls @ 100 mls/hr IVPB TTS [facility] Insulin Aspart (Novolog) 0 unit SC ACHS [facility] PRN Reason: Protocol Last Admin: 06/10/17 07:56 Dose: Not Given Lactulose (Enulose) 20 gm PO HS [facility] Last Admin: 06/09/17 22:00 Dose: 20 gm Losartan Potassium (Cozaar) 100 mg PO QPM [facility] Last Admin: 06/09/17 17:54 Dose: 100 mg Rosuvastatin Calcium (Crestor) 10 mg PO HS [facility] Last Admin: 06/09/17 21:57 Dose: 10 mg Sucralfate (Carafate Tab) 1 gm PO BID [facility] Last Admin: 06/09/17 17:52 Dose: 1 gm Vitamin B Complex/Vit C/Folic Acid (Nephro-Naren) 1 tab PO DAILY [facility] Last Admin: 06/09/17 10:52 Dose: 1 tab - Labs Labs: 06/10/17 06:25 06/10/17 06:25 PT 12.7 SECONDS (9.7-12.2) H 06/10/17 06:25 INR 1.1 06/10/17 06:25 APTT 32 SECONDS (21-34) D 06/10/17 06:25 Assessment and Plan - Assessment and Plan (Free Text) Assessment: Acute on chronic renal failure 06/10; patient is in surgery for AV fistula placement; has temporary access that was given by surgery; patient will need 24 hours of monitoring s/p surgery until d/c 06/07: AV fistula scheduled for 06/10: pt scheduled for dialysis access in OR per surgery, NPO past midnight. Patient has a permacath in for dialysis nephrology is onboard. Pending dialysis placement. Patient will be switched to Vancomycin and Gentamycin upon discharge. UPPER EXTREMITY DVT ON THE RIGHT 06/10: will start PO anticoagulation 24 hours post surgery; f/u case mangement to see which is covered by insurance 06/07: Still on Heparin drip 06/05: Started on Heparin drip, will need oral coaguation on discharge. PVD (peripheral vascular disease) 06/05: S/P angioplasty no further intervention on this problem. S/P angiography and angioplasty LLE. No further intervention at this point per surgery team. Diabetic infection of right foot; chronic DM uncontrolled 06/05: Still on IV Ancef post dialysis. IV ancef 2gram post dialysis Diabetes is uncontrolled A1C 10.1 sliding scale and accu checks with hypoglycemia protocol, Lantus 20 units daily HS. Pending dialysis placement. Patient will be switched to Vancomycin and Gentamycin upon discharge; vanco will be given on dialysis schedule days as well as gentamycin as both are neprhotoxic and renally excreted Encephalopathy; resolving Seems to be improving neurology onboard; appreciate recs Laculose 20 gm daily. CAD (coronary artery disease) Patient went for Cath with Dr. Ledesma please see his note, she will need PCI which can be done after her leg surgery with Dr. Ledesma. Aspirin, Plavix, and Crestor 10mg. Systolic CHF; acute on chronic also 2/2 to noncompliance on Beta kam will need to follow up with Dr. Ledesma as far medical management. per report from cath, she has a LV EF of 25% patient is on sudden cardiac protocol here with monitor Anemia; chronic Assessment & Plan: Procrit 1000 units and also PO iron. HTN (hypertension); chronic uncontrolled Assessment & Plan: Coreg 3.125gm bid, Hydralazine 25mg q4 prn, and also 50mg bid, Depression;chronic Prozac 20mg daily Patient is not suicidal however very internally preoccupied Prophylactic measure 05/05: Changed to heparin drip due to upper extremity DVT. Pepcid 20mg bid, carafate, heparin 5000 units q8h, Tylenol for pain. Pending dialysis placement. Dispo: will need placement to snf care facility will need to continue with dialysis schedule will need to continue with oral anticoagulation until DVT is resolved 24 hours after surgery All management as per Dr. Denis
[2017-06-10] MEDS: Multivitamin Vitamin B Complex (Nephro-Vite) Tab PO SCH (10:00)
[2017-06-10] MEDS ORDERED: Sodium Chloride 0.9% 500 ML IV ONE (10:06)
[2017-06-10] MEDS ORDERED: Sodium Chloride 0.9% 250 ML IV ONE ×2 (10:06)
[2017-06-10] MEDS: Heparin25000 units/250ml 1/2NS 25,000 UNITS/250 ML BAG IV PRN (10:40)
[2017-06-10] MEDS ORDERED: Rocuronium 10 mg/ml (5 ml) ONE (10:56)
[2017-06-10] MEDS ORDERED: Neostigmine Methylsulfate 3mg/3ml Syringe IV ONE (12:38)
[2017-06-10] MEDS ORDERED: HYDROmorphone 0.5 mg/0.5 ml ISec IVP PRN (13:05)
--- NOTE | 2017-06-10 13:08 | PCM.SURG1 ---
Surgeon's Initial Post Op Note - Surgeon's Notes Surgeon: Dr. Romero Storage Worker: Dr. Grullon PGY2 Type of Anesthesia: General Endo Pre-Operative Diagnosis: End-stage renal disease Operative Findings: see dictation Post-Operative Diagnosis: same Operation Performed: Left AV fistula placement Specimen/Specimens Removed: none Estimated Blood Loss: EBL {In ML}: 50 Blood Products Given: N/A Drains Used: No Drains Post-Op Condition: Good Date of Surgery/Procedure: 06/10/17 Time of Surgery/Procedure: 10:10
--- NOTE | 2017-06-10 15:54 | CP.PCM.PN ---
Subjective - Date & Time of Evaluation Date of Evaluation: 06/10/17 Time of Evaluation: 15:52 - Subjective Subjective: Follow up Nephrology Consultation: Assessment: stable Acute Kidney Injury likely contrast induced nephropathy: now on HD since ? severe allergic reaction to polysulphone dialyzer Non-healing ulcer on heel with celluliits Diabetic chronic Kidney Disease (E11.22) Hypertensive Chronic Kidney Disease (I12.9) Chronic Kidney Disease (N18.4) Stage 4 with 500 mg proteinuria (R80.9) possibly due to DM and or HTN Anemia (D64.9), Hyperphosphatemia (E83.39), HTN (I12.9) systolic CHF, Morbid obesity, PVD, depression, CAD Hallucinations Plan plan for HD tomorrow with non-polysulphone Glover Exeltra dialyzer. she tolerating HD well with this dialyzer. CM made aware for need of this dialyzer for outpt HD check labs with HD as much possible. no evidence of significant renal recovery yet. consider psych consult continue to monitor for renal recovery and I/O closely. Hypertension control with meds as ordered. continue with coreg, added losartan .now BP stable Increased epogen 66236 unit with HD and continue with phoslo continue with vit D and iron supplementation ID, cardiology and vascular surgery following Dose meds/antibiotics for reduced GFR <10. Avoid fleets enema/magnesium based laxatives. Avoid nephrotoxins/NSAIDs Glycemic control Further work up/management as per primary team Thanks for allowing me to participate in care of your patient. Will follow patient with you. Please call if any Qs. Dr Juan Torres Office: [phone] HPI: Pt is a 67 y/o F with hx of diabetes Mellitus hypertension, CHF, chronic anemia, hyperphos, DVT on coumadin, depression, obesity, dementia, CVA, CKD ? 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 pt sleepy after AVF surgery. unable to obtain ROS Physical Examination: General Appearance: Comfortable, in no acute respiratory distress, co-operative . obese Vitals reviewed and noted as below Lungs: Normal respiratory rate/effort. Breath sounds bilateral equal and clear anteriorly Heart: Normal rate. s1s2 normal. No rub or gallop. Extremities: 1+ edema. No varicose veins. has chronic venous stasis changes. both feets in dressings. Neurological: Patient is sleepy post surgery Skin: Warm and dry. Normal turgor. No rash. Palpitation: Normal elasticity for age Abdomen: Abdomen is soft. Bowel sounds +. There is no abdominal tenderness, no guarding/rigidity no organomegaly. she is obese MSK: no joint tenderness or swelling. Digits and nails normal, no deformity : kidney or bladder not palpable Access: permacath Rt IJ. left foream AVF now Labs/imaging/EKG reviewed. Past medical history, past surgical history, family history, social history, allergy reviewed and noted as below Family hx: no hx of CKD. Rest non-contributory Objective - Vital Signs/Intake and Output Vital Signs (last 24 hours): Temp Pulse Resp BP Pulse Ox 97 F L 58 L 18 137/64 100 06/10/17 14:40 06/10/17 14:40 06/10/17 14:40 06/10/17 14:40 06/10/17 14:15 Intake and Output: 06/10/17 06/10/17 06:59 18:59 Intake Total 333.4 Balance 333.4 - Medications Medications: Current Medications Acetaminophen (Tylenol 325mg Tab) 650 mg PO Q6 PRN PRN Reason: Pain, moderate (4-7) Aspirin (Aspirin Chewable) 81 mg PO DAILY [facility] Last Admin: 06/10/17 10:08 Dose: Not Given Calcium Acetate (Phoslo) 667 mg PO TIDAC [facility] Last Admin: 06/10/17 10:00 Dose: Not Given Carvedilol (Coreg) 3.125 mg PO BID [facility] Clopidogrel Bisulfate (Plavix) 75 mg PO DAILY [facility] Last Admin: 06/10/17 10:00 Dose: Not Given Dextrose (Dextrose 50% Inj) 0 ml IV STAT PRN; Protocol PRN Reason: Hypoglycemia Protocol Dextrose (Glutose 15) 0 gm PO ONCE PRN; Protocol PRN Reason: Hypoglycemia Protocol Epoetin Etienne (Procrit) 10,000 unit IV TTS [facility] Last Admin: 06/08/17 10:17 Dose: 10,000 unit Epoetin Etienne (Procrit) 6,000 unit IV TTS [facility] Last Admin: 06/08/17 10:17 Dose: 6,000 unit Ergocalciferol (Drisdol 50,000 Intl Units Cap) 1 cap PO Q7D [facility] Last Admin: 06/04/17 13:40 Dose: 1 cap Famotidine (Pepcid) 20 mg PO DAILY [facility] Last Admin: 06/10/17 10:00 Dose: Not Given Ferrous Gluconate (Fergon) 324 mg PO TID [facility] Last Admin: 06/10/17 13:36 Dose: Not Given Fluoxetine HCl (Prozac) 20 mg PO DAILY [facility] Last Admin: 06/10/17 10:08 Dose: Not Given Hydralazine HCl (Apresoline) 25 mg PO Q4 PRN PRN Reason: Other Last Admin: 06/10/17 01:00 Dose: 25 mg Hydromorphone HCl (Dilaudid) 0.5 mg IVP Q3 PRN PRN Reason: Pain, severe (8-10) Cefazolin Sodium (Ancef) 1 gm in 50 mls @ 100 mls/hr IVPB TTS [facility] Insulin Aspart (Novolog) 0 unit SC ACHS DONALD PRN Reason: Protocol Last Admin: 06/10/17 11:30 Dose: Not Given Lactulose (Enulose) 20 gm PO HS [facility] Last Admin: 06/09/17 22:00 Dose: 20 gm Losartan Potassium (Cozaar) 100 mg PO QPM [facility] Last Admin: 06/09/17 17:54 Dose: 100 mg Rosuvastatin Calcium (Crestor) 10 mg PO HS [facility] Last Admin: 06/09/17 21:57 Dose: 10 mg Sucralfate (Carafate Tab) 1 gm PO BID [facility] Last Admin: 06/10/17 10:09 Dose: Not Given Vitamin B Complex/Vit C/Folic Acid (Nephro-Naren) 1 tab PO DAILY [facility] Last Admin: 06/10/17 10:00 Dose: Not Given - Labs Labs: 06/10/17 06:25 06/10/17 06:25 PT 12.7 SECONDS (9.7-12.2) H 06/10/17 06:25 INR 1.1 06/10/17 06:25 APTT 32 SECONDS (21-34) D 06/10/17 06:25
--- NOTE | 2017-06-10 22:10 | OP ---
PROCEDURE DATE: 06/10/2017 PREOPERATIVE DIAGNOSIS: Renal failure. PROCEDURE CARRIED OUT: Brachiobasilic fistula, left elbow. SURGEON: Devon Romero Jr., MD ASBESTOS SIDING MECHANIC: Dr. Alegria. ANESTHESIOLOGIST: Dr. Gerardo. INDICATION: The patient is an elderly woman with renal insufficiency, presently dialyzed by means of a catheter. OPERATIVE FINDINGS: The cephalic vein was of small size and could not be utilized in the upper portion of the arm; instead, however, the basilic vein was of good size, caliber, adjacent to the artery, so a [id number] fistula with bidirectional flow was created at the elbow. This was done using loop magnification, heparin anticoagulation, 6-0 Prolene sutures. After completion of the anastomosis, there were excellent biphasic Doppler signals of the wrist and there was brisk flow through the fistula. The procedure was then terminated and the skin was closed. There was a small amount of bleeding, less than 20 mL as we were closing, which required us to reopen the wound and look for the site which was identified. The wound was then closed with interrupted nylon sutures and the procedure was terminated. The operation carried out was brachiobasilic fistula, left elbow, with bidirectional flow. This most likely will require superficialization in the future. Devon Romero Jr., MD cc: Juan Torres MD.
[2017-06-11] MEDS: (Novolog) Insulin Aspart, Recombinant 100 u/ml 10 ml vial SC SCH ×4 (07:35→21:38)
--- NOTE | 2017-06-11 07:49 | CP.PCM.PN ---
Subjective - Date & Time of Evaluation Date of Evaluation: 06/11/17 Time of Evaluation: 09:31 - Subjective Subjective: PGY2 Medicine Note for Dr. Denis; all management as per Dr. Denis Pt seen and examined this AM at bedside; patient denies any acute complaints; states she has no pain from the surgery and was seen eating all of her breakfast ; wounds on lower extremities are clean dry and intact with fresh dressing; AV fistula with no bleeding at site; new HD port clean dry and intact as well; patient denies fevers/chills, TRAVIS, CP, SOB, abdominal pain, N/V/D, dysuria/freq/ urg, or lower extremity pain/swelling. Will restart DVT treatment today s/p procedure. Objective - Vital Signs/Intake and Output Vital Signs (last 24 hours): Temp Pulse Resp BP Pulse Ox 98.2 F 65 20 126/82 96 06/11/17 04:00 06/11/17 04:22 06/11/17 04:00 06/11/17 04:00 06/11/17 04:00 Intake and Output: 06/11/17 06/11/17 06:59 18:59 Intake Total 300 Balance 300 - Medications Medications: Current Medications Acetaminophen (Tylenol 325mg Tab) 650 mg PO Q6 PRN PRN Reason: Pain, moderate (4-7) Aspirin (Aspirin Chewable) 81 mg PO DAILY [facility] Last Admin: 06/10/17 10:08 Dose: Not Given Calcium Acetate (Phoslo) 667 mg PO TIDAC [facility] Last Admin: 06/10/17 17:45 Dose: 667 mg Carvedilol (Coreg) 3.125 mg PO BID [facility] Last Admin: 06/10/17 18:19 Dose: Not Given Clopidogrel Bisulfate (Plavix) 75 mg PO DAILY [facility] Last Admin: 06/10/17 10:00 Dose: Not Given Dextrose (Dextrose 50% Inj) 0 ml IV STAT PRN; Protocol PRN Reason: Hypoglycemia Protocol Dextrose (Glutose 15) 0 gm PO ONCE PRN; Protocol PRN Reason: Hypoglycemia Protocol Epoetin Etienne (Procrit) 10,000 unit IV TTS [facility] Last Admin: 06/08/17 10:17 Dose: 10,000 unit Epoetin Etienne (Procrit) 6,000 unit IV TTS [facility] Last Admin: 06/08/17 10:17 Dose: 6,000 unit Ergocalciferol (Drisdol 50,000 Intl Units Cap) 1 cap PO Q7D [facility] Last Admin: 06/04/17 13:40 Dose: 1 cap Famotidine (Pepcid) 20 mg PO DAILY [facility] Last Admin: 06/10/17 10:00 Dose: Not Given Ferrous Gluconate (Fergon) 324 mg PO TID [facility] Last Admin: 06/10/17 17:46 Dose: 324 mg Fluoxetine HCl (Prozac) 20 mg PO DAILY [facility] Last Admin: 06/10/17 10:08 Dose: Not Given Hydralazine HCl (Apresoline) 25 mg PO Q4 PRN PRN Reason: Other Last Admin: 06/10/17 01:00 Dose: 25 mg Hydromorphone HCl (Dilaudid) 0.5 mg IVP Q3 PRN PRN Reason: Pain, severe (8-10) Last Admin: 06/11/17 03:04 Dose: 0.5 mg Cefazolin Sodium/Dextrose (Ancef Iv 1 Gm Duplex) 1 gm in 50 mls @ 100 mls/hr IVPB TTS [facility] Insulin Aspart (Novolog) 0 unit SC ACHS DONALD PRN Reason: Protocol Last Admin: 06/11/17 07:35 Dose: Not Given Lactulose (Enulose) 20 gm PO HS [facility] Last Admin: 06/10/17 21:22 Dose: 20 gm Losartan Potassium (Cozaar) 100 mg PO QPM [facility] Last Admin: 06/10/17 17:45 Dose: 100 mg Rosuvastatin Calcium (Crestor) 10 mg PO HS [facility] Last Admin: 06/10/17 21:22 Dose: 10 mg Sucralfate (Carafate Tab) 1 gm PO BID [facility] Last Admin: 06/10/17 17:45 Dose: 1 gm Vitamin B Complex/Vit C/Folic Acid (Nephro-Naren) 1 tab PO DAILY [facility] Last Admin: 06/10/17 10:00 Dose: Not Given - Labs Labs: 06/10/17 06:25 06/10/17 06:25 PT 12.7 SECONDS (9.7-12.2) H 06/10/17 06:25 INR 1.1 06/10/17 06:25 APTT 32 SECONDS (21-34) D 06/10/17 06:25 - Constitutional Appears: Non-toxic - Head Exam Head Exam: ATRAUMATIC - Eye Exam Eye Exam: EOMI - ENT Exam ENT Exam: Mucous Membranes Moist - Neck Exam Neck Exam: Full ROM - Respiratory Exam Respiratory Exam: Clear to Ausculation Bilateral, NORMAL BREATHING PATTERN. absent: Rales, Rhonchi, Wheezes - Cardiovascular Exam Cardiovascular Exam: REGULAR RHYTHM, +S1, +S2, Murmur - GI/Abdominal Exam GI & Abdominal Exam: Soft - Extremities Exam Additional comments: b/l wounds covered clean dry and intact with no signs of pus Assessment and Plan - Assessment and Plan (Free Text) Assessment: Acute on chronic renal failure 06/11: pt is post op day 1 AV fistula placement; will f/u surgery recs 06/10; patient is in surgery for AV fistula placement; has temporary access that was given by surgery; patient will need 24 hours of monitoring s/p surgery until d/c 06/07: AV fistula scheduled for 06/10: pt scheduled for dialysis access in OR per surgery, NPO past midnight. Patient has a permacath in for dialysis nephrology is onboard. Pending dialysis placement. Patient will be switched to Vancomycin and Gentamycin upon discharge. UPPER EXTREMITY DVT ON THE RIGHT 06/11; will start PO anticoagulation today at 18:00; 10mg PO Eliquis for 7 days; then switch to 5mg PO BID afterwards 06/10: will start PO anticoagulation 24 hours post surgery; f/u case mangement to see which is covered by insurance 06/07: Still on Heparin drip 06/05: Started on Heparin drip, will need oral coaguation on discharge. PVD (peripheral vascular disease) 06/05: S/P angioplasty no further intervention on this problem. S/P angiography and angioplasty LLE. No further intervention at this point per surgery team. Diabetic infection of right foot; chronic DM uncontrolled 06/05: Still on IV Ancef post dialysis. IV ancef 2gram post dialysis Diabetes is uncontrolled A1C 10.1 sliding scale and accu checks with hypoglycemia protocol, Lantus 20 units daily HS. Pending dialysis placement. Patient will be switched to Vancomycin and Gentamycin upon discharge; vanco will be given on dialysis schedule days as well as gentamycin as both are neprhotoxic and renally excreted Encephalopathy; resolving Seems to be improving neurology onboard; appreciate recs Laculose 20 gm daily. CAD (coronary artery disease) Patient went for Cath with Dr. Ledesma please see his note, she will need PCI which can be done after her leg surgery with Dr. Ledesma. Aspirin, Plavix, and Crestor 10mg. Systolic CHF; acute on chronic also 2/2 to noncompliance on Beta kam will need to follow up with Dr. Ledesma as far medical management. per report from cath, she has a LV EF of 25% patient is on sudden cardiac protocol here with monitor Anemia; chronic Assessment & Plan: Procrit 1000 units and also PO iron. HTN (hypertension); chronic uncontrolled Assessment & Plan: Coreg 3.125gm bid, Hydralazine 25mg q4 prn, and also 50mg bid, Depression;chronic Prozac 20mg daily Patient is not suicidal however very internally preoccupied Prophylactic measure 05/05: Changed to heparin drip due to upper extremity DVT. Pepcid 20mg bid, carafate, heparin 5000 units q8h, Tylenol for pain. Pending dialysis placement. Dispo: will need placement to group home care facility Patient will need to have wounds on lower extremities changed every other day with xeroform, ABD, and sterile gauze around it; keep legs elevated Labs on dialysis days c/w Vanc 1g/Dialysis days and Gentamicin after dialysis is finished (three times a week) 100mg for total of 14 days for both. will need to continue with dialysis schedule T//Sat will need to continue with oral anticoagulation until DVT Elquis 10mg BID for 7 days (started 06/11) and then switch to 5mg PO BID after that All management as per Dr. Denis
[2017-06-11] MEDS: ceFAZolin IV 1 gm in Dextrose 1 GM/50 ML BAG IVPB SCH (09:27)
[2017-06-11] MEDS: Multivitamin Vitamin B Complex (Nephro-Vite) Tab PO SCH (09:35)
--- NOTE | 2017-06-11 09:41 | CP.PCM.PN ---
Subjective - Date & Time of Evaluation Date of Evaluation: 06/11/17 Time of Evaluation: 08:20 - Subjective Subjective: Vascular surgery Progress noted. Dr. Romero Pt seen and examined at bedside. No acute events overnight. Does report some pain at the left arm AVF site. No F/C. No new complaints. Objective - Vital Signs/Intake and Output Vital Signs (last 24 hours): Temp Pulse Resp BP Pulse Ox 98.0 F 69 18 137/80 98 06/11/17 08:30 06/11/17 08:30 06/11/17 08:30 06/11/17 08:30 06/11/17 08:30 Intake and Output: 06/11/17 06/11/17 06:59 18:59 Intake Total 300 Balance 300 - Medications Medications: Current Medications Acetaminophen (Tylenol 325mg Tab) 650 mg PO Q6 PRN PRN Reason: Pain, moderate (4-7) Apixaban (Eliquis) 10 mg PO BID [facility] Stop: 06/18/17 18:00 Aspirin (Aspirin Chewable) 81 mg PO DAILY [facility] Last Admin: 06/11/17 09:34 Dose: 81 mg Calcium Acetate (Phoslo) 667 mg PO TIDAC [facility] Last Admin: 06/11/17 08:26 Dose: 667 mg Carvedilol (Coreg) 3.125 mg PO BID [facility] Last Admin: 06/11/17 09:34 Dose: 3.125 mg Clopidogrel Bisulfate (Plavix) 75 mg PO DAILY [facility] Last Admin: 06/10/17 10:00 Dose: Not Given Dextrose (Dextrose 50% Inj) 0 ml IV STAT PRN; Protocol PRN Reason: Hypoglycemia Protocol Dextrose (Glutose 15) 0 gm PO ONCE PRN; Protocol PRN Reason: Hypoglycemia Protocol Epoetin Etienne (Procrit) 10,000 unit IV TTS [facility] Last Admin: 06/08/17 10:17 Dose: 10,000 unit Epoetin Etienne (Procrit) 6,000 unit IV TTS [facility] Last Admin: 06/08/17 10:17 Dose: 6,000 unit Ergocalciferol (Drisdol 50,000 Intl Units Cap) 1 cap PO Q7D [facility] Last Admin: 06/04/17 13:40 Dose: 1 cap Famotidine (Pepcid) 20 mg PO DAILY [facility] Last Admin: 06/11/17 09:34 Dose: 20 mg Ferrous Gluconate (Fergon) 324 mg PO TID [facility] Last Admin: 06/10/17 17:46 Dose: 324 mg Fluoxetine HCl (Prozac) 20 mg PO DAILY [facility] Last Admin: 06/10/17 10:08 Dose: Not Given Hydralazine HCl (Apresoline) 25 mg PO Q4 PRN PRN Reason: Other Last Admin: 06/10/17 01:00 Dose: 25 mg Hydromorphone HCl (Dilaudid) 0.5 mg IVP Q3 PRN PRN Reason: Pain, severe (8-10) Last Admin: 06/11/17 03:04 Dose: 0.5 mg Cefazolin Sodium/Dextrose (Ancef Iv 1 Gm Duplex) 1 gm in 50 mls @ 100 mls/hr IVPB TTS [facility] Last Admin: 06/11/17 09:27 Dose: 100 mls/hr Insulin Aspart (Novolog) 0 unit SC ACHS DONALD PRN Reason: Protocol Last Admin: 06/11/17 07:35 Dose: Not Given Lactulose (Enulose) 20 gm PO HS [facility] Last Admin: 06/10/17 21:22 Dose: 20 gm Losartan Potassium (Cozaar) 100 mg PO QPM [facility] Last Admin: 06/10/17 17:45 Dose: 100 mg Rosuvastatin Calcium (Crestor) 10 mg PO HS [facility] Last Admin: 06/10/17 21:22 Dose: 10 mg Sucralfate (Carafate Tab) 1 gm PO BID [facility] Last Admin: 06/11/17 09:34 Dose: 1 gm Vitamin B Complex/Vit C/Folic Acid (Nephro-Naren) 1 tab PO DAILY [facility] Last Admin: 06/11/17 09:35 Dose: 1 tab - Labs Labs: 06/10/17 06:25 06/10/17 06:25 PT 12.7 SECONDS (9.7-12.2) H 06/10/17 06:25 INR 1.1 06/10/17 06:25 APTT 32 SECONDS (21-34) D 06/10/17 06:25 - Constitutional Appears: Well, No Acute Distress - Head Exam Head Exam: ATRAUMATIC, NORMAL INSPECTION, NORMOCEPHALIC - Eye Exam Eye Exam: EOMI - ENT Exam ENT Exam: Mucous Membranes Moist - Respiratory Exam Respiratory Exam: NORMAL BREATHING PATTERN. absent: Accessory Muscle Use, Wheezes, Respiratory Distress - Cardiovascular Exam Cardiovascular Exam: absent: JVD - GI/Abdominal Exam GI & Abdominal Exam: Soft. absent: Guarding, Rigid, Tenderness - Extremities Exam Additional comments: left upper extremity bandage in place. Dressing clean, dry and intact. No poikilothermia noted. Assessment and Plan - Assessment and Plan (Free Text) Assessment: 67yo F with left heel gangrene and ESRD. Right Jugular vein DVT, on eliquis. S/ p aortofemoral angio with L popliteal and L posterior tibial arthrectomy with balloon angioplasy 06/03. S/p permacath placement 05/23. [id number] Left AV Fistula creation 06/10. POD 1 - May continue to use permacath - Continue with dressing changes prn - Patient to follow up in [place] [facility] in 10 days - on eliquis for Right Jugular Vein DVT Further recs as per Dr. Heather Sigala PGY1 surgery pager: [phone]
[2017-06-11] MEDS: Ergocalciferol 50,000 Intl Units Cap PO SCH (10:34)
--- NOTE | 2017-06-11 15:49 | CP.PCM.PN ---
Subjective - Date & Time of Evaluation Date of Evaluation: 06/11/17 Time of Evaluation: 15:48 - Subjective Subjective: Follow up Nephrology Consultation: Assessment: stable Acute Kidney Injury likely contrast induced nephropathy: now on HD since ? severe allergic reaction to polysulphone dialyzer Non-healing ulcer on heel with celluliits Diabetic chronic Kidney Disease (E11.22) Hypertensive Chronic Kidney Disease (I12.9) Chronic Kidney Disease (N18.4) Stage 4 with 500 mg proteinuria (R80.9) possibly due to DM and or HTN Anemia (D64.9), Hyperphosphatemia (E83.39), HTN (I12.9) systolic CHF, Morbid obesity, PVD, depression, CAD Plan plan for HD today with non-polysulphone Glover Exeltra dialyzer. she tolerating HD well with this dialyzer. CM made aware for need of this dialyzer for outpt HD check labs with HD as much possible. no evidence of significant renal reovery yet. continue to monitor for renal recovery and I/O closely. Hypertension control with meds as ordered. continue with coreg, added losartan .now BP stable Increased epogen 65650 unit with HD and continue with phoslo continue with vit D and iron supplementation ID, cardiology and vascular surgery following Dose meds/antibiotics for reduced GFR <10. Avoid fleets enema/magnesium based laxatives. Avoid nephrotoxins/NSAIDs Glycemic control Further work up/management as per primary team Thanks for allowing me to participate in care of your patient. Will follow patient with you. Please call if any Qs. Dr Juan Torres Office: [phone] HPI: Pt is a 67 y/o F with hx of diabetes Mellitus hypertension, CHF, chronic anemia, hyperphos, DVT on coumadin, drpression, obesity, dementia, CVA, CKD ? stage and a skilled nursing resident at [place] [facility] presented with complaints of non healing ulcer Rt heel. [employer] service used for creole interpretation. ROS: She Denies chest pain, palpitation, shortness of breath. has urinary complaints as decreased urine output. Physical Examination: General Appearance: Comfortable, in no acute respiratory distress, co-operative . obese Vitals reviewed and noted as below Lungs: Normal respiratory rate/effort. Breath sounds bilateral equal and clear anteriorly Heart: Normal rate. s1s2 normal. No rub or gallop. Extremities: 1+ edema. No varicose veins. has chronic venous stasis changes. both feets in dressings. Neurological: Patient is alert, awake and not oriented to person, place or time. ? has dementia. No focal deficit. Strength bilateral appropriate and equal Skin: Warm and dry. Normal turgor. No rash. Palpitation: Normal elasticity for age Abdomen: Abdomen is soft. Bowel sounds +. There is no abdominal tenderness, no guarding/rigidity no organomegaly. she is obese MSK: no joint tenderness or swelling. Digits and nails normal, no deformity : kidney or bladder not palpable Access: permacath Rt IJ Labs/imaging/EKG reviewed. Past medical history, past surgical history, family history, social history, allergy reviewed and noted as below Family hx: no hx of CKD. Rest non-contributory Objective - Vital Signs/Intake and Output Vital Signs (last 24 hours): Temp Pulse Resp BP Pulse Ox 97.4 F L 70 18 141/79 99 06/11/17 14:45 06/11/17 14:45 06/11/17 14:45 06/11/17 14:45 06/11/17 14:45 Intake and Output: 06/11/17 06/11/17 06:59 18:59 Intake Total 300 150 Balance 300 150 - Medications Medications: Current Medications Acetaminophen (Tylenol 325mg Tab) 650 mg PO Q6 PRN PRN Reason: Pain, moderate (4-7) Apixaban (Eliquis) 10 mg PO BID [facility] Stop: 06/18/17 18:00 Aspirin (Aspirin Chewable) 81 mg PO DAILY [facility] Last Admin: 06/11/17 09:34 Dose: 81 mg Calcium Acetate (Phoslo) 667 mg PO TIDAC [facility] Last Admin: 06/11/17 12:00 Dose: 667 mg Carvedilol (Coreg) 3.125 mg PO BID [facility] Last Admin: 06/11/17 09:34 Dose: 3.125 mg Clopidogrel Bisulfate (Plavix) 75 mg PO DAILY [facility] Last Admin: 06/11/17 10:34 Dose: 75 mg Dextrose (Dextrose 50% Inj) 0 ml IV STAT PRN; Protocol PRN Reason: Hypoglycemia Protocol Dextrose (Glutose 15) 0 gm PO ONCE PRN; Protocol PRN Reason: Hypoglycemia Protocol Epoetin Etienne (Procrit) 10,000 unit IV TTS [facility] Last Admin: 06/08/17 10:17 Dose: 10,000 unit Epoetin Etienne (Procrit) 6,000 unit IV TTS [facility] Last Admin: 06/08/17 10:17 Dose: 6,000 unit Ergocalciferol (Drisdol 50,000 Intl Units Cap) 1 cap PO Q7D [facility] Last Admin: 06/11/17 10:34 Dose: 1 cap Famotidine (Pepcid) 20 mg PO DAILY [facility] Last Admin: 06/11/17 09:34 Dose: 20 mg Ferrous Gluconate (Fergon) 324 mg PO TID [facility] Last Admin: 06/11/17 13:08 Dose: 324 mg Fluoxetine HCl (Prozac) 20 mg PO DAILY [facility] Last Admin: 06/11/17 09:40 Dose: 20 mg Hydralazine HCl (Apresoline) 25 mg PO Q4 PRN PRN Reason: Other Last Admin: 06/10/17 01:00 Dose: 25 mg Hydromorphone HCl (Dilaudid) 0.5 mg IVP Q3 PRN PRN Reason: Pain, severe (8-10) Last Admin: 06/11/17 03:04 Dose: 0.5 mg Cefazolin Sodium/Dextrose (Ancef Iv 1 Gm Duplex) 1 gm in 50 mls @ 100 mls/hr IVPB [facility] Last Admin: 06/11/17 09:27 Dose: 100 mls/hr Insulin Aspart (Novolog) 0 unit SC ACHS [facility] PRN Reason: Protocol Last Admin: 06/11/17 12:16 Dose: 2 unit Lactulose (Enulose) 20 gm PO HS [facility] Last Admin: 06/10/17 21:22 Dose: 20 gm Losartan Potassium (Cozaar) 100 mg PO QPM [facility] Last Admin: 06/10/17 17:45 Dose: 100 mg Rosuvastatin Calcium (Crestor) 10 mg PO HS [facility] Last Admin: 06/10/17 21:22 Dose: 10 mg Sucralfate (Carafate Tab) 1 gm PO BID [facility] Last Admin: 06/11/17 09:34 Dose: 1 gm Vitamin B Complex/Vit C/Folic Acid (Nephro-Naren) 1 tab PO DAILY [facility] Last Admin: 06/11/17 09:35 Dose: 1 tab - Labs Labs: 06/10/17 06:25 06/10/17 06:25 PT 12.7 SECONDS (9.7-12.2) H 06/10/17 06:25 INR 1.1 06/10/17 06:25 APTT 32 SECONDS (21-34) D 06/10/17 06:25
[2017-06-11] MEDS: Epoetin Alfa 10,000 unit/ml Dialysis IV SCH (17:43)
[2017-06-11] MEDS: Epoetin Alfa Dialysis 3000 UNIT/ML Inj IV SCH (17:44)
[2017-06-12] MEDS: (Novolog) Insulin Aspart, Recombinant 100 u/ml 10 ml vial SC SCH ×4 (07:42→21:51)
--- NOTE | 2017-06-12 08:59 | CP.PCM.PN ---
Subjective - Date & Time of Evaluation Date of Evaluation: 06/12/17 Time of Evaluation: 08:57 - Subjective Subjective: Medicine Progress Note Patient seen and examined. Patient is awake, alert and pleasant this morning. Denies pain in legs but complains of pain in left arm at site of AVF. The patient denies chest pain and leg pain. Objective - Vital Signs/Intake and Output Vital Signs (last 24 hours): Temp Pulse Resp BP Pulse Ox 98.8 F 89 20 120/75 97 06/12/17 08:03 06/12/17 08:03 06/12/17 08:03 06/12/17 08:03 06/12/17 08:03 Intake and Output: 06/12/17 06/12/17 06:59 18:59 Intake Total 400 Balance 400 - Medications Medications: Current Medications Acetaminophen (Tylenol 325mg Tab) 650 mg PO Q6 PRN PRN Reason: Pain, moderate (4-7) Apixaban (Eliquis) 2.5 mg PO BID [facility] Stop: 06/18/17 19:31 Last Admin: 06/11/17 19:27 Dose: 2.5 mg Aspirin (Aspirin Chewable) 81 mg PO DAILY [facility] Last Admin: 06/11/17 09:34 Dose: 81 mg Calcium Acetate (Phoslo) 667 mg PO TIDAC [facility] Last Admin: 06/12/17 07:57 Dose: 667 mg Carvedilol (Coreg) 3.125 mg PO BID [facility] Last Admin: 06/11/17 18:51 Dose: 3.125 mg Clopidogrel Bisulfate (Plavix) 75 mg PO DAILY [facility] Last Admin: 06/11/17 10:34 Dose: 75 mg Dextrose (Dextrose 50% Inj) 0 ml IV STAT PRN; Protocol PRN Reason: Hypoglycemia Protocol Dextrose (Glutose 15) 0 gm PO ONCE PRN; Protocol PRN Reason: Hypoglycemia Protocol Epoetin Etienne (Procrit) 10,000 unit IV TTS [facility] Last Admin: 06/11/17 17:43 Dose: 10,000 unit Epoetin Etienne (Procrit) 6,000 unit IV TTS [facility] Last Admin: 06/11/17 17:44 Dose: 6,000 unit Ergocalciferol (Drisdol 50,000 Intl Units Cap) 1 cap PO Q7D [facility] Last Admin: 06/11/17 10:34 Dose: 1 cap Famotidine (Pepcid) 20 mg PO DAILY [facility] Last Admin: 06/11/17 09:34 Dose: 20 mg Ferrous Gluconate (Fergon) 324 mg PO TID [facility] Last Admin: 06/11/17 18:49 Dose: 324 mg Fluoxetine HCl (Prozac) 20 mg PO DAILY [facility] Last Admin: 06/11/17 09:40 Dose: 20 mg Hydralazine HCl (Apresoline) 25 mg PO Q4 PRN PRN Reason: Other Last Admin: 06/10/17 01:00 Dose: 25 mg Hydromorphone HCl (Dilaudid) 0.5 mg IVP Q3 PRN PRN Reason: Pain, severe (8-10) Last Admin: 06/11/17 03:04 Dose: 0.5 mg Cefazolin Sodium/Dextrose (Ancef Iv 1 Gm Duplex) 1 gm in 50 mls @ 100 mls/hr IVPB TTS [facility] Last Admin: 06/11/17 09:27 Dose: 100 mls/hr Insulin Aspart (Novolog) 0 unit SC ACHS [facility] PRN Reason: Protocol Last Admin: 06/12/17 07:42 Dose: Not Given Lactulose (Enulose) 20 gm PO HS [facility] Last Admin: 06/11/17 21:20 Dose: 20 gm Losartan Potassium (Cozaar) 100 mg PO QPM [facility] Last Admin: 06/11/17 18:51 Dose: 100 mg Rosuvastatin Calcium (Crestor) 10 mg PO HS [facility] Last Admin: 06/11/17 21:18 Dose: 10 mg Sucralfate (Carafate Tab) 1 gm PO BID [facility] Last Admin: 06/11/17 18:49 Dose: 1 gm Vitamin B Complex/Vit C/Folic Acid (Nephro-Naren) 1 tab PO DAILY [facility] Last Admin: 06/11/17 09:35 Dose: 1 tab - Labs Labs: 06/10/17 06:25 06/10/17 06:25 PT 12.7 SECONDS (9.7-12.2) H 06/10/17 06:25 INR 1.1 06/10/17 06:25 APTT 32 SECONDS (21-34) D 06/10/17 06:25 - Constitutional Appears: Non-toxic, No Acute Distress - Head Exam Head Exam: ATRAUMATIC, NORMOCEPHALIC - Eye Exam Eye Exam: EOMI, Normal appearance, PERRL - ENT Exam ENT Exam: Mucous Membranes Moist - Respiratory Exam Respiratory Exam: Clear to Ausculation Bilateral, NORMAL BREATHING PATTERN - Cardiovascular Exam Cardiovascular Exam: REGULAR RHYTHM, +S1, +S2 - GI/Abdominal Exam GI & Abdominal Exam: Soft, Normal Bowel Sounds. absent: Distended, Firm, Guarding - Extremities Exam Extremities Exam: Pedal Edema. absent: Normal Inspection, Tenderness Additional comments: chronic venous stasis skin changes, dry, dressing around lower legs clean Left arm fistula covered in bandage, blood noted - Neurological Exam Neurological Exam: Alert, Awake - Psychiatric Exam Psychiatric exam: Normal Affect, Normal Mood - Skin Skin Exam: Dry, Normal Color, Warm Assessment and Plan - Assessment and Plan (Free Text) Assessment: Acute on chronic renal failure CKD stage 4 with HD initiated on 05/23/17 HD on //Sat POD #2 s/p left AV fistula placement Patient has a permacath in for dialysis Nephrology is onboard- Dr Torres, help appreciated Pending dialysis placement. Patient will be switched to Vancomycin and Gentamycin upon discharge. Avoid nephrotoxic agents. Right Upper Extremity DVT Continue 10mg PO Eliquis for 7 days (started on 06/11); then switch to 5mg PO BID afterwards (start on 06/19) 06/05: Started on Heparin drip, will need oral anticoagulation on discharge. Non-healing heel ulcers Continue IV ancef 2gm post dialysis Wound care daily ID Dr Nunez consulted- help appreciated Patient will be switched to Vancomycin and Gentamycin upon discharge; vanco will be given on dialysis schedule days as well as gentamycin as both are neprhotoxic and renally excreted Diabetes Mellitus HgA1C 10.1, uncontrolled at home sliding scale and accu checks with hypoglycemia protocol Crestor 10mg PO HS Consistent carb diet Encephalopathy Resolved, AAOx3 neurology onboard; appreciate recs Laculose 20 gm daily. PVD (peripheral vascular disease) S/P angiography and angioplasty LLE. No further intervention on this problem per surgery team. CAD (coronary artery disease) Monitor on telemetry Patient had cardiac cath procedure with Dr. Ledesma on 05/28 she will need PCI which can be done after her leg surgery with Dr. Ledesma. Aspirin 81mg PO daily Plavix 75mg PO daily Crestor 10mg PO HS Systolic CHF; acute on chronic also 2/2 to noncompliance Will need to follow up with Dr. Ledesma as far medical management. Per report from cath, she has a LV EF of 25% Patient is on sudden cardiac protocol here with monitor Coreg 3.125mg PO BID Losartan 100mg PO daily Anemia, chronic Hgb currently stable, likely secondary to CKD Assessment & Plan: Procrit 1000 units and also PO iron. HTN (hypertension) Currently well controlled and within normal limits Coreg 3.125gm PO bid Losartan 100mg PO daily Hydralazine 25mg PO q4 prn elevated SBP Depression;chronic Prozac 20mg daily Patient is not suicidal however very internally preoccupied Vitamin D Deficiency Continue weekly Ergocalciferol 49856b Prophylactic measure Pepcid 20mg bid Eliquis and ASA SCDs contraindicated Tylenol for pain. Pending dialysis placement. * Dispo: [facility] * Patient will need to have wounds on lower extremities changed every other day with xeroform, ABD, and sterile gauze around it; keep legs elevated * Labs on dialysis days * c/w Vanc 1g/Dialysis days and Gentamicin after dialysis is finished (three times a week) 100mg for total of 14 days for both. * will need to continue with dialysis schedule T//Sat * will need to continue with oral anticoagulation until DVT Elquis 10mg BID for 7 days (started 06/11) and then switch to 5mg PO BID after that All management as per Dr. Denis
[2017-06-12] MEDS: Multivitamin Vitamin B Complex (Nephro-Vite) Tab PO SCH (09:02)
--- NOTE | 2017-06-12 11:05 | CP.PCM.PN ---
Subjective - Date & Time of Evaluation Date of Evaluation: 06/12/17 Time of Evaluation: 11:04 - Subjective Subjective: Follow up Nephrology Consultation: Assessment: stable Acute Kidney Injury likely contrast induced nephropathy: now on HD since ? severe allergic reaction to polysulphone dialyzer Non-healing ulcer on heel with celluliits Diabetic chronic Kidney Disease (E11.22) Hypertensive Chronic Kidney Disease (I12.9) Chronic Kidney Disease (N18.4) Stage 4 with 500 mg proteinuria (R80.9) possibly due to DM and or HTN Anemia (D64.9), Hyperphosphatemia (E83.39), HTN (I12.9) systolic CHF, Morbid obesity, PVD, depression, CAD Plan plan for HD tomorrow with non-polysulphone Glover Exeltra dialyzer. she tolerating HD well with this dialyzer. CM made aware for need of this dialyzer for outpt HD check labs with HD as much possible. no evidence of significant renal reovery yet. continue to monitor for renal recovery and I/O closely. Hypertension control with meds as ordered. continue with coreg, added losartan .now BP stable Increased epogen 31407 unit with HD and continue with phoslo continue with vit D and iron supplementation ID, cardiology and vascular surgery following Dose meds/antibiotics for reduced GFR <10. Avoid fleets enema/magnesium based laxatives. Avoid nephrotoxins/NSAIDs Glycemic control Further work up/management as per primary team Thanks for allowing me to participate in care of your patient. Will follow patient with you. Please call if any Qs. Dr Juan Torres Office: [phone] HPI: Pt is a 67 y/o F with hx of diabetes Mellitus hypertension, CHF, chronic anemia, hyperphos, DVT on coumadin, drpression, obesity, dementia, CVA, CKD ? stage and a skilled nursing resident at [facility] presented with complaints of non healing ulcer Rt heel. no new complaints. feels good. denies SOB Physical Examination: General Appearance: Comfortable, in no acute respiratory distress, co-operative . obese Vitals reviewed and noted as below Lungs: Normal respiratory rate/effort. Breath sounds bilateral equal and clear anteriorly Heart: Normal rate. s1s2 normal. No rub or gallop. Extremities: 1+ edema. No varicose veins. has chronic venous stasis changes. both feets in dressings. Neurological: Patient is alert, awake and not oriented to person, place or time. ? has dementia. No focal deficit. Strength bilateral appropriate and equal Skin: Warm and dry. Normal turgor. No rash. Palpitation: Normal elasticity for age Abdomen: Abdomen is soft. Bowel sounds +. There is no abdominal tenderness, no guarding/rigidity no organomegaly. she is obese MSK: no joint tenderness or swelling. Digits and nails normal, no deformity : kidney or bladder not palpable Access: permacath Rt IJ, left AVF (maturing) Labs/imaging/EKG reviewed. Past medical history, past surgical history, family history, social history, allergy reviewed and noted as below Family hx: no hx of CKD. Rest non-contributory Objective - Vital Signs/Intake and Output Vital Signs (last 24 hours): Temp Pulse Resp BP Pulse Ox 98.8 F 89 20 120/75 97 06/12/17 08:03 06/12/17 08:03 06/12/17 08:03 06/12/17 08:03 06/12/17 08:03 Intake and Output: 06/12/17 06/12/17 06:59 18:59 Intake Total 400 Balance 400 - Medications Medications: Current Medications Acetaminophen (Tylenol 325mg Tab) 650 mg PO Q6 PRN PRN Reason: Pain, moderate (4-7) Apixaban (Eliquis) 2.5 mg PO BID [facility] Stop: 06/18/17 19:31 Last Admin: 06/12/17 09:01 Dose: 2.5 mg Aspirin (Aspirin Chewable) 81 mg PO DAILY [facility] Last Admin: 06/12/17 09:01 Dose: 81 mg Calcium Acetate (Phoslo) 667 mg PO TIDAC [facility] Last Admin: 06/12/17 07:57 Dose: 667 mg Carvedilol (Coreg) 3.125 mg PO BID [facility] Last Admin: 06/12/17 09:02 Dose: 3.125 mg Clopidogrel Bisulfate (Plavix) 75 mg PO DAILY [facility] Last Admin: 06/12/17 09:02 Dose: 75 mg Dextrose (Dextrose 50% Inj) 0 ml IV STAT PRN; Protocol PRN Reason: Hypoglycemia Protocol Dextrose (Glutose 15) 0 gm PO ONCE PRN; Protocol PRN Reason: Hypoglycemia Protocol Epoetin Etienne (Procrit) 10,000 unit IV TTS [facility] Last Admin: 06/11/17 17:43 Dose: 10,000 unit Epoetin Etienne (Procrit) 6,000 unit IV TTS [facility] Last Admin: 06/11/17 17:44 Dose: 6,000 unit Ergocalciferol (Drisdol 50,000 Intl Units Cap) 1 cap PO Q7D [facility] Last Admin: 06/11/17 10:34 Dose: 1 cap Famotidine (Pepcid) 20 mg PO DAILY [facility] Last Admin: 06/12/17 09:02 Dose: 20 mg Ferrous Gluconate (Fergon) 324 mg PO TID [facility] Last Admin: 06/12/17 09:01 Dose: 324 mg Fluoxetine HCl (Prozac) 20 mg PO DAILY [facility] Last Admin: 06/12/17 09:01 Dose: 20 mg Hydralazine HCl (Apresoline) 25 mg PO Q4 PRN PRN Reason: Other Last Admin: 06/10/17 01:00 Dose: 25 mg Hydromorphone HCl (Dilaudid) 0.5 mg IVP Q3 PRN PRN Reason: Pain, severe (8-10) Last Admin: 06/11/17 03:04 Dose: 0.5 mg Cefazolin Sodium/Dextrose (Ancef Iv 1 Gm Duplex) 1 gm in 50 mls @ 100 mls/hr IVPB [facility] Last Admin: 06/11/17 09:27 Dose: 100 mls/hr Insulin Aspart (Novolog) 0 unit SC ACHS [facility] PRN Reason: Protocol Last Admin: 06/12/17 07:42 Dose: Not Given Lactulose (Enulose) 20 gm PO HS [facility] Last Admin: 06/11/17 21:20 Dose: 20 gm Losartan Potassium (Cozaar) 100 mg PO QPM [facility] Last Admin: 06/11/17 18:51 Dose: 100 mg Rosuvastatin Calcium (Crestor) 10 mg PO HS [facility] Last Admin: 06/11/17 21:18 Dose: 10 mg Sucralfate (Carafate Tab) 1 gm PO BID [facility] Last Admin: 06/12/17 09:01 Dose: 1 gm Vitamin B Complex/Vit C/Folic Acid (Nephro-Naren) 1 tab PO DAILY [facility] Last Admin: 06/12/17 09:02 Dose: 1 tab - Labs Labs: 06/10/17 06:25 06/10/17 06:25 PT 12.7 SECONDS (9.7-12.2) H 06/10/17 06:25 INR 1.1 06/10/17 06:25 APTT 32 SECONDS (21-34) D 06/10/17 06:25
--- NOTE | 2017-06-12 13:39 | CP.PCM.PN ---
Subjective - Date & Time of Evaluation Date of Evaluation: 06/12/17 Time of Evaluation: 13:35 - Subjective Subjective: Ms. Taveras was seen and examined at the bedside. She is alert and oriented. She denies any pain, headache, dizziness, lightheadedness, numbness, nausea, or vomiting. She is up in a chair.She is able to consume the majority of her lunch tray. There was no untoward events overnight. Objective - Vital Signs/Intake and Output Vital Signs (last 24 hours): Temp Pulse Resp BP Pulse Ox 98.8 F 89 20 120/75 97 06/12/17 08:03 06/12/17 08:03 06/12/17 08:03 06/12/17 08:03 06/12/17 08:03 Intake and Output: 06/12/17 06/12/17 06:59 18:59 Intake Total 400 Balance 400 - Medications Medications: Current Medications Acetaminophen (Tylenol 325mg Tab) 650 mg PO Q6 PRN PRN Reason: Pain, moderate (4-7) Apixaban (Eliquis) 2.5 mg PO BID [facility] Stop: 06/18/17 19:31 Last Admin: 06/12/17 09:01 Dose: 2.5 mg Aspirin (Aspirin Chewable) 81 mg PO DAILY [facility] Last Admin: 06/12/17 09:01 Dose: 81 mg Calcium Acetate (Phoslo) 667 mg PO TIDAC [facility] Last Admin: 06/12/17 11:42 Dose: 667 mg Carvedilol (Coreg) 3.125 mg PO BID [facility] Last Admin: 06/12/17 09:02 Dose: 3.125 mg Clopidogrel Bisulfate (Plavix) 75 mg PO DAILY [facility] Last Admin: 06/12/17 09:02 Dose: 75 mg Dextrose (Dextrose 50% Inj) 0 ml IV STAT PRN; Protocol PRN Reason: Hypoglycemia Protocol Dextrose (Glutose 15) 0 gm PO ONCE PRN; Protocol PRN Reason: Hypoglycemia Protocol Epoetin Etienne (Procrit) 10,000 unit IV TTS [facility] Last Admin: 06/11/17 17:43 Dose: 10,000 unit Epoetin Etienne (Procrit) 6,000 unit IV TTS [facility] Last Admin: 06/11/17 17:44 Dose: 6,000 unit Ergocalciferol (Drisdol 50,000 Intl Units Cap) 1 cap PO Q7D [facility] Last Admin: 06/11/17 10:34 Dose: 1 cap Famotidine (Pepcid) 20 mg PO DAILY [facility] Last Admin: 06/12/17 09:02 Dose: 20 mg Ferrous Gluconate (Fergon) 324 mg PO TID [facility] Last Admin: 06/12/17 09:01 Dose: 324 mg Fluoxetine HCl (Prozac) 20 mg PO DAILY [facility] Last Admin: 06/12/17 09:01 Dose: 20 mg Hydralazine HCl (Apresoline) 25 mg PO Q4 PRN PRN Reason: Other Last Admin: 06/10/17 01:00 Dose: 25 mg Hydromorphone HCl (Dilaudid) 0.5 mg IVP Q3 PRN PRN Reason: Pain, severe (8-10) Last Admin: 06/11/17 03:04 Dose: 0.5 mg Cefazolin Sodium/Dextrose (Ancef Iv 1 Gm Duplex) 1 gm in 50 mls @ 100 mls/hr IVPB TTS [facility] Last Admin: 06/11/17 09:27 Dose: 100 mls/hr Insulin Aspart (Novolog) 0 unit SC ACHS [facility] PRN Reason: Protocol Last Admin: 06/12/17 11:53 Dose: 3 unit Lactulose (Enulose) 20 gm PO HS [facility] Last Admin: 06/11/17 21:20 Dose: 20 gm Losartan Potassium (Cozaar) 100 mg PO QPM [facility] Last Admin: 06/11/17 18:51 Dose: 100 mg Rosuvastatin Calcium (Crestor) 10 mg PO HS [facility] Last Admin: 06/11/17 21:18 Dose: 10 mg Sucralfate (Carafate Tab) 1 gm PO BID [facility] Last Admin: 06/12/17 09:01 Dose: 1 gm Vitamin B Complex/Vit C/Folic Acid (Nephro-Naren) 1 tab PO DAILY [facility] Last Admin: 06/12/17 09:02 Dose: 1 tab - Labs Labs: 06/10/17 06:25 06/10/17 06:25 PT 12.7 SECONDS (9.7-12.2) H 06/10/17 06:25 INR 1.1 06/10/17 06:25 APTT 32 SECONDS (21-34) D 06/10/17 06:25 - Constitutional Appears: No Acute Distress - Head Exam Head Exam: ATRAUMATIC - Neurological Exam Neurological Exam: Alert, Awake Neuro motor strength exam: Left Upper Extremity: 5, Right Upper Extremity: 5, Left Lower Extremity: 3, Right Lower Extremity: 3 Additional comments: Neurological unchanged from previous examination. Assessment and Plan (1) Encephalopathy acute Assessment & Plan: Case discussed with Dr. Devine, continue all current medical, physical, and occupational therapies. There is no new recommendation from neurology. Status: Acute
--- NOTE | 2017-06-13 00:25 | CP.PCM.PN ---
Subjective - Date & Time of Evaluation Date of Evaluation: 06/12/17 Time of Evaluation: 11:05 - Subjective Subjective: Patient seen and evaluated Comfortable Physical examination - Constitutional Appears: Non-toxic, No Acute Distress - Head Exam Head Exam: NORMAL INSPECTION - Eye Exam Eye Exam: EOMI - ENT Exam ENT Exam: Mucous Membranes Moist - Respiratory Exam Respiratory Exam: Clear to Ausculation Bilateral, NORMAL BREATHING PATTERN. absent: Rales, Rhonchi, Wheezes - Cardiovascular Exam Cardiovascular Exam: REGULAR RHYTHM, +S1, +S2. absent: Gallop, Rubs, Murmur - GI/Abdominal Exam GI & Abdominal Exam: Soft, Normal Bowel Sounds. absent: Tenderness - Extremities Exam Extremities Exam: Pedal Edema Additional comments: pitting edema and venous stasis changes to mid calf b/l negative Shiloh's Warm toes b/l Right heel wrapped in clean bandage odorous feet - Neurological Exam Neurological Exam: Alert, Awake, Oriented x3 - Psychiatric Exam Psychiatric exam: Normal Affect, Normal Mood - Skin Skin Exam: Normal Color, Warm Objective - Vital Signs/Intake and Output Vital Signs (last 24 hours): Temp Pulse Resp BP Pulse Ox 98.1 F 90 20 142/82 95 06/12/17 15:10 06/12/17 16:10 06/12/17 15:10 06/12/17 15:10 06/12/17 15:10 Intake and Output: 06/12/17 06/13/17 18:59 06:59 Intake Total 120 Balance 120 - Medications Medications: Current Medications Apixaban (Eliquis) 2.5 mg PO BID [facility] Stop: 06/18/17 19:31 Last Admin: 06/12/17 17:39 Dose: 2.5 mg Aspirin (Aspirin Chewable) 81 mg PO DAILY [facility] Last Admin: 06/12/17 09:01 Dose: 81 mg Calcium Acetate (Phoslo) 667 mg PO TIDAC [facility] Last Admin: 06/12/17 17:38 Dose: 667 mg Carvedilol (Coreg) 3.125 mg PO BID [facility] Last Admin: 06/12/17 17:38 Dose: 3.125 mg Clopidogrel Bisulfate (Plavix) 75 mg PO DAILY [facility] Last Admin: 06/12/17 09:02 Dose: 75 mg Dextrose (Dextrose 50% Inj) 0 ml IV STAT PRN; Protocol PRN Reason: Hypoglycemia Protocol Dextrose (Glutose 15) 0 gm PO ONCE PRN; Protocol PRN Reason: Hypoglycemia Protocol Epoetin Etienne (Procrit) 10,000 unit IV TTS [facility] Last Admin: 06/11/17 17:43 Dose: 10,000 unit Epoetin Etienne (Procrit) 6,000 unit IV TTS [facility] Last Admin: 06/11/17 17:44 Dose: 6,000 unit Ergocalciferol (Drisdol 50,000 Intl Units Cap) 1 cap PO Q7D [facility] Last Admin: 06/11/17 10:34 Dose: 1 cap Famotidine (Pepcid) 20 mg PO DAILY [facility] Last Admin: 06/12/17 09:02 Dose: 20 mg Ferrous Gluconate (Fergon) 324 mg PO TID [facility] Last Admin: 06/12/17 17:39 Dose: 324 mg Fluoxetine HCl (Prozac) 20 mg PO DAILY [facility] Last Admin: 06/12/17 09:01 Dose: 20 mg Hydralazine HCl (Apresoline) 25 mg PO Q4 PRN PRN Reason: Other Last Admin: 06/10/17 01:00 Dose: 25 mg Hydromorphone HCl (Dilaudid) 0.5 mg IVP Q3 PRN PRN Reason: Pain, severe (8-10) Last Admin: 06/11/17 03:04 Dose: 0.5 mg Cefazolin Sodium/Dextrose (Ancef Iv 1 Gm Duplex) 1 gm in 50 mls @ 100 mls/hr IVPB TTS [facility] Last Admin: 06/11/17 09:27 Dose: 100 mls/hr Insulin Aspart (Novolog) 0 unit SC ACHS [facility] PRN Reason: Protocol Last Admin: 06/12/17 21:51 Dose: Not Given Losartan Potassium (Cozaar) 100 mg PO QPM [facility] Last Admin: 06/12/17 17:38 Dose: 100 mg Vitamin B Complex/Vit C/Folic Acid (Nephro-Naren) 1 tab PO DAILY [facility] Last Admin: 06/12/17 09:02 Dose: 1 tab - Labs Labs: 06/10/17 06:25 06/10/17 06:25 PT 12.7 SECONDS (9.7-12.2) H 06/10/17 06:25 INR 1.1 06/10/17 06:25 APTT 32 SECONDS (21-34) D 06/10/17 06:25 Assessment and Plan - Assessment and Plan (Free Text) Assessment: (1) PVD (peripheral vascular disease) Assessment & Plan: Dr. Romero on case Status: Acute (2) Diabetic infection of right foot Assessment & Plan: IV ancef 2gram post dialysis. Status: Acute (3) Acute on chronic renal failure Assessment & Plan: Patient has a permacath in for dialysis, nephrology is onboard. Continue with dialysis, will need to find out if patient needs AV fistula. Status: Acute (4) Encephalopathy acute Assessment & Plan: Seems to be improving, MRI/MRA today, neurology onboard. Laculose 20 gm daily. Status: Acute (5) CAD (coronary artery disease) Assessment & Plan: Aspirin, plavix, and Cretor 10mg. Status: Acute (6) Systolic CHF Assessment & Plan: on Beta kam, will need to follow up with Dr. Ledesma as far medical management. per report from cath, she has a LV EF of 25%. Status: Chronic (7) Anemia Assessment & Plan: Procrit 1000 units and also PO iron. Status: Chronic (8) Diabetes Assessment & Plan: sliding scale and accu checks with hypoglycemia protocol, Lantus 20 units daily HS. Status: Chronic (9) HTN (hypertension) Assessment & Plan: Coreg 3.125gm bid, hydralazine 25mg q4 prn, and also 50mg bid, Status: Acute (10) Depression Assessment & Plan: prozac 20mg daily Status: Chronic (11) Prophylactic measure Assessment & Plan: pepcid 20mg bid, carafacte, heparin 5000 units q8h, tylenol for pain. Status: Acute
--- NOTE | 2017-06-13 07:50 | CP.PCM.PN ---
Subjective - Date & Time of Evaluation Date of Evaluation: 06/13/17 Time of Evaluation: 09:09 - Subjective Subjective: Medicine Progress Note Patient seen and examined. Patient has HD today. No acute events overnight. Patient states that she feels well and has no acute complaints. Denies fever, chest pain, shortness of breath, and leg pain. Objective - Vital Signs/Intake and Output Vital Signs (last 24 hours): Temp Pulse Resp BP Pulse Ox 98.1 F 89 20 165/83 H 96 06/13/17 04:05 06/13/17 05:14 06/13/17 04:05 06/13/17 04:05 06/13/17 04:05 Intake and Output: 06/13/17 06/13/17 06:59 18:59 Intake Total 100 Balance 100 - Medications Medications: Current Medications Apixaban (Eliquis) 2.5 mg PO BID [facility] Stop: 06/18/17 19:31 Last Admin: 06/12/17 17:39 Dose: 2.5 mg Aspirin (Aspirin Chewable) 81 mg PO DAILY [facility] Last Admin: 06/12/17 09:01 Dose: 81 mg Calcium Acetate (Phoslo) 667 mg PO TIDAC [facility] Last Admin: 06/12/17 17:38 Dose: 667 mg Carvedilol (Coreg) 3.125 mg PO BID [facility] Last Admin: 06/12/17 17:38 Dose: 3.125 mg Clopidogrel Bisulfate (Plavix) 75 mg PO DAILY [facility] Last Admin: 06/12/17 09:02 Dose: 75 mg Dextrose (Dextrose 50% Inj) 0 ml IV STAT PRN; Protocol PRN Reason: Hypoglycemia Protocol Dextrose (Glutose 15) 0 gm PO ONCE PRN; Protocol PRN Reason: Hypoglycemia Protocol Epoetin Etienne (Procrit) 10,000 unit IV TTS [facility] Last Admin: 06/11/17 17:43 Dose: 10,000 unit Epoetin Etienne (Procrit) 6,000 unit IV TTS [facility] Last Admin: 06/11/17 17:44 Dose: 6,000 unit Ergocalciferol (Drisdol 50,000 Intl Units Cap) 1 cap PO Q7D [facility] Last Admin: 06/11/17 10:34 Dose: 1 cap Famotidine (Pepcid) 20 mg PO DAILY [facility] Last Admin: 06/12/17 09:02 Dose: 20 mg Ferrous Gluconate (Fergon) 324 mg PO TID [facility] Last Admin: 06/12/17 17:39 Dose: 324 mg Fluoxetine HCl (Prozac) 20 mg PO DAILY [facility] Last Admin: 06/12/17 09:01 Dose: 20 mg Hydralazine HCl (Apresoline) 25 mg PO Q4 PRN PRN Reason: Other Last Admin: 06/10/17 01:00 Dose: 25 mg Hydromorphone HCl (Dilaudid) 0.5 mg IVP Q3 PRN PRN Reason: Pain, severe (8-10) Last Admin: 06/11/17 03:04 Dose: 0.5 mg Cefazolin Sodium/Dextrose (Ancef Iv 1 Gm Duplex) 1 gm in 50 mls @ 100 mls/hr IVPB TTS [facility] Last Admin: 06/11/17 09:27 Dose: 100 mls/hr Insulin Aspart (Novolog) 0 unit SC ACHS [facility] PRN Reason: Protocol Last Admin: 06/12/17 21:51 Dose: Not Given Losartan Potassium (Cozaar) 100 mg PO QPM [facility] Last Admin: 06/12/17 17:38 Dose: 100 mg Vitamin B Complex/Vit C/Folic Acid (Nephro-Naren) 1 tab PO DAILY [facility] Last Admin: 06/12/17 09:02 Dose: 1 tab - Labs Labs: 06/10/17 06:25 06/10/17 06:25 PT 12.7 SECONDS (9.7-12.2) H 06/10/17 06:25 INR 1.1 06/10/17 06:25 APTT 32 SECONDS (21-34) D 06/10/17 06:25 - Constitutional Appears: Non-toxic, No Acute Distress - Head Exam Head Exam: ATRAUMATIC, NORMOCEPHALIC - Eye Exam Eye Exam: EOMI, Normal appearance, PERRL - ENT Exam ENT Exam: Mucous Membranes Moist - Respiratory Exam Respiratory Exam: Clear to Ausculation Bilateral, NORMAL BREATHING PATTERN - Cardiovascular Exam Cardiovascular Exam: REGULAR RHYTHM, +S1, +S2 - GI/Abdominal Exam GI & Abdominal Exam: Soft, Normal Bowel Sounds. absent: Distended, Firm, Guarding - Extremities Exam Extremities Exam: Pedal Edema. absent: Normal Inspection, Tenderness Additional comments: chronic venous stasis skin changes, dry, dressing around lower legs clean Left arm fistula covered in bandage - Neurological Exam Neurological Exam: Alert, Awake - Psychiatric Exam Psychiatric exam: Normal Affect, Normal Mood - Skin Skin Exam: Dry, Normal Color, Warm Assessment and Plan - Assessment and Plan (Free Text) Assessment: Acute on chronic renal failure CKD stage 4 with HD initiated on 05/23/17 HD on T/Th/Sat POD #3 s/p left AV fistula placement. Patient should follow up with Dr Romero 's office within 1 week. Patient has a permacath in for dialysis Nephrology is onboard- Dr Torres, help appreciated Pending dialysis placement. Patient will be switched to Vancomycin and Gentamycin upon discharge. Avoid nephrotoxic agents. Right Upper Extremity DVT Continue 10mg PO Eliquis for 7 days (started on 06/11); then switch to 5mg PO BID afterwards (start on 06/19) 06/05: Started on Heparin drip, will need oral anticoagulation on discharge. Non-healing heel ulcers Continue IV ancef 2gm post dialysis Wound care daily ID Dr Nunez consulted- help appreciated Patient will be switched to Vancomycin and Gentamycin upon discharge; vanco will be given on dialysis schedule days as well as gentamycin as both are neprhotoxic and renally excreted Diabetes Mellitus HgA1C 10.1, uncontrolled at home sliding scale and accu checks with hypoglycemia protocol Crestor 10mg PO HS Consistent carb diet Encephalopathy Resolved, AAOx3 neurology onboard; appreciate recs Laculose 20 gm daily. PVD (peripheral vascular disease) S/P angiography and angioplasty LLE. No further intervention on this problem per surgery team. CAD (coronary artery disease) Monitor on telemetry Patient had cardiac cath procedure with Dr. Ledesma on 05/28 she will need PCI which can be done after her leg surgery with Dr. Ledesma. Aspirin 81mg PO daily Plavix 75mg PO daily Crestor 10mg PO HS Systolic CHF; acute on chronic also 2/2 to noncompliance Will need to follow up with Dr. Ledesma as far medical management. Per report from cath, she has a LV EF of 25% Patient is on sudden cardiac protocol here with monitor- LifeVest evaluation was done yesterday Coreg 3.125mg PO BID Losartan 100mg PO daily Anemia, chronic Hgb currently stable, likely secondary to CKD Assessment & Plan: Procrit 1000 units and also PO iron. HTN (hypertension) Currently well controlled and within normal limits Coreg 3.125gm PO bid Losartan 100mg PO daily Hydralazine 25mg PO q4 prn elevated SBP Depression;chronic Prozac 20mg daily Patient is not suicidal however very internally preoccupied Vitamin D Deficiency Continue weekly Ergocalciferol [id number] Prophylactic measure Pepcid 20mg bid Eliquis and ASA SCDs contraindicated Tylenol for pain. Pending dialysis placement. * Dispo: will need placement to [facility] * Patient will need to have wounds on lower extremities changed every other day with xeroform, ABD, and sterile gauze around it; keep legs elevated * Labs on dialysis days * c/w Vanc 1g/Dialysis days and Gentamicin after dialysis is finished (three times a week) 100mg for total of 14 doses for both. * will need to continue with dialysis schedule T//Sat * will need to continue with oral anticoagulation until DVT Elquis 10mg BID for 7 days (started 06/11) and then switch to 5mg PO BID after that All management as per Dr. Denis
[2017-06-13] MEDS: (Novolog) Insulin Aspart, Recombinant 100 u/ml 10 ml vial SC SCH ×2 (07:56→12:36)
[2017-06-13] MEDS: Epoetin Alfa Dialysis 3000 UNIT/ML Inj IV SCH (11:45)
[2017-06-13] MEDS: Epoetin Alfa 10,000 unit/ml Dialysis IV SCH (11:45)
[2017-06-13] MEDS: ceFAZolin IV 1 gm in Dextrose 1 GM/50 ML BAG IVPB SCH (12:38)
--- NOTE | 2017-06-13 14:50 | CP.PCM.PN ---
Subjective - Date & Time of Evaluation Date of Evaluation: 06/13/17 Time of Evaluation: 14:47 - Subjective Subjective: Ms. Taveras was seen and examined at the bedside. She is alert and oriented. She claims of feeling tired post dialysis. She is on external portable life vest. She denies any headache, dizziness, lightheadedness, blurred visio, nausea , or vomiting. There was no untoward events overnight. Objective - Vital Signs/Intake and Output Vital Signs (last 24 hours): Temp Pulse Resp BP Pulse Ox 97.4 F L 70 18 155/77 H 100 06/13/17 11:55 06/13/17 11:55 06/13/17 11:55 06/13/17 11:55 06/13/17 11:55 Intake and Output: 06/13/17 06/13/17 06:59 18:59 Intake Total 100 Balance 100 - Medications Medications: Current Medications Apixaban (Eliquis) 2.5 mg PO BID [facility] Stop: 06/18/17 19:31 Last Admin: 06/13/17 12:30 Dose: 2.5 mg Aspirin (Aspirin Chewable) 81 mg PO DAILY [facility] Last Admin: 06/13/17 12:31 Dose: 81 mg Calcium Acetate (Phoslo) 667 mg PO TIDAC [facility] Last Admin: 06/13/17 12:30 Dose: 667 mg Carvedilol (Coreg) 3.125 mg PO BID [facility] Last Admin: 06/13/17 12:30 Dose: 3.125 mg Dextrose (Dextrose 50% Inj) 0 ml IV STAT PRN; Protocol PRN Reason: Hypoglycemia Protocol Dextrose (Glutose 15) 0 gm PO ONCE PRN; Protocol PRN Reason: Hypoglycemia Protocol Epoetin Etienne (Procrit) 10,000 unit IV TTS [facility] Last Admin: 06/13/17 11:45 Dose: 10,000 unit Epoetin Etienne (Procrit) 6,000 unit IV TTS [facility] Last Admin: 06/13/17 11:45 Dose: 6,000 unit Ergocalciferol (Drisdol 50,000 Intl Units Cap) 1 cap PO Q7D [facility] Last Admin: 06/11/17 10:34 Dose: 1 cap Famotidine (Pepcid) 20 mg PO DAILY [facility] Last Admin: 06/13/17 12:31 Dose: 20 mg Ferrous Gluconate (Fergon) 324 mg PO TID [facility] Last Admin: 06/13/17 14:25 Dose: 324 mg Heparin Sodium (Porcine) (Heparin) 3,700 units IVP TTS [facility] Stop: 06/18/17 10:01 Last Admin: 06/13/17 11:42 Dose: 3,700 units Hydralazine HCl (Apresoline) 25 mg PO Q4 PRN PRN Reason: Other Last Admin: 06/10/17 01:00 Dose: 25 mg Hydromorphone HCl (Dilaudid) 0.5 mg IVP Q3 PRN PRN Reason: Pain, severe (8-10) Last Admin: 06/11/17 03:04 Dose: 0.5 mg Cefazolin Sodium/Dextrose (Ancef Iv 1 Gm Duplex) 1 gm in 50 mls @ 100 mls/hr IVPB TTS [facility] Last Admin: 06/13/17 12:38 Dose: 100 mls/hr Insulin Aspart (Novolog) 0 unit SC ACHS [facility] PRN Reason: Protocol Last Admin: 06/13/17 12:36 Dose: Not Given Losartan Potassium (Cozaar) 100 mg PO QPM [facility] Last Admin: 06/12/17 17:38 Dose: 100 mg - Labs Labs: 06/10/17 06:25 06/10/17 06:25 PT 12.7 SECONDS (9.7-12.2) H 06/10/17 06:25 INR 1.1 06/10/17 06:25 APTT 32 SECONDS (21-34) D 06/10/17 06:25 - Constitutional Appears: No Acute Distress - Head Exam Head Exam: ATRAUMATIC - Neurological Exam Neurological Exam: Alert, Awake Neuro motor strength exam: Left Upper Extremity: 5, Right Upper Extremity: 5, Left Lower Extremity: 3, Right Lower Extremity: 3 Additional comments: Neurological unchanged from previous examination. Assessment and Plan (1) Encephalopathy acute Assessment & Plan: Case discussed with Dr. Devine, continue all current medical, physical, and occupational therapies. There is no new recommendation from neurology. Status: Acute
--- NOTE | 2017-06-13 15:01 | CP.PCM.PN ---
Subjective - Date & Time of Evaluation Date of Evaluation: 06/13/17 Time of Evaluation: 14:58 - Subjective Subjective: Follow up Nephrology Consultation: Assessment: stable Acute Kidney Injury likely contrast induced nephropathy: now on HD since ? severe allergic reaction to polysulphone dialyzer Non-healing ulcer on heel with celluliits Diabetic chronic Kidney Disease (E11.22) Hypertensive Chronic Kidney Disease (I12.9) Chronic Kidney Disease (N18.4) Stage 4 with 500 mg proteinuria (R80.9) possibly due to DM and or HTN Anemia (D64.9), Hyperphosphatemia (E83.39), HTN (I12.9) systolic CHF, Morbid obesity, PVD, depression, CAD Plan HD today with non-polysulphone [place] Exeltra dialyzer. she tolerating HD well with this dialyzer. check labs with HD as much possible. no evidence of significant renal recovery yet. continue to monitor for renal recovery and I/O closely. Hypertension control with meds as ordered. continue with coreg, added losartan. now BP stable continue with epogen 28236 unit with HD and continue with phoslo continue with vit D and iron supplementation ID, cardiology and vascular surgery following Dose meds/antibiotics for reduced GFR <10. Avoid fleets enema/magnesium based laxatives. Avoid nephrotoxins/NSAIDs Glycemic control Further work up/management as per primary team pt planned for d/c to [facility]. stable from renal perspective. Thanks for allowing me to participate in care of your patient. Will follow patient with you. Please call if any Qs. d/w team Dr Juan Torres Office: [phone] HPI: Pt is a 67 y/o F with hx of diabetes Mellitus hypertension, CHF, chronic anemia, hyperphos, DVT on coumadin, drpression, obesity, dementia, CVA, CKD ? 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 no new complaints. feels good. denies SOB/CP. 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 obese Vitals reviewed and noted as below Lungs: Normal respiratory rate/effort. Breath sounds bilateral equal and clear anteriorly Heart: Normal rate. s1s2 normal. No rub or gallop. Extremities: 1+ edema. No varicose veins. has chronic venous stasis changes. both feets in dressings. Neurological: Patient is alert, awake and not oriented to person, place or time. ? has dementia. No focal deficit. Strength bilateral appropriate and equal Skin: Warm and dry. Normal turgor. No rash. Palpitation: Normal elasticity for age Abdomen: Abdomen is soft. Bowel sounds +. There is no abdominal tenderness, no guarding/rigidity no organomegaly. she is obese MSK: no joint tenderness or swelling. Digits and nails normal, no deformity : kidney or bladder not palpable Access: permacath Rt IJ, left AVF (maturing) Labs/imaging/EKG reviewed. Past medical history, past surgical history, family history, social history, allergy reviewed and noted as below Family hx: no hx of CKD. Rest non-contributory Objective - Vital Signs/Intake and Output Vital Signs (last 24 hours): Temp Pulse Resp BP Pulse Ox 97.4 F L 70 18 155/77 H 100 06/13/17 11:55 06/13/17 11:55 06/13/17 11:55 06/13/17 11:55 06/13/17 11:55 Intake and Output: 06/13/17 06/13/17 06:59 18:59 Intake Total 100 Balance 100 - Medications Medications: Current Medications Apixaban (Eliquis) 2.5 mg PO BID [facility] Stop: 06/18/17 19:31 Last Admin: 06/13/17 12:30 Dose: 2.5 mg Aspirin (Aspirin Chewable) 81 mg PO DAILY [facility] Last Admin: 06/13/17 12:31 Dose: 81 mg Calcium Acetate (Phoslo) 667 mg PO TIDAC [facility] Last Admin: 06/13/17 12:30 Dose: 667 mg Carvedilol (Coreg) 3.125 mg PO BID [facility] Last Admin: 06/13/17 12:30 Dose: 3.125 mg Dextrose (Dextrose 50% Inj) 0 ml IV STAT PRN; Protocol PRN Reason: Hypoglycemia Protocol Dextrose (Glutose 15) 0 gm PO ONCE PRN; Protocol PRN Reason: Hypoglycemia Protocol Epoetin Etienne (Procrit) 10,000 unit IV TTS [facility] Last Admin: 06/13/17 11:45 Dose: 10,000 unit Epoetin Etienne (Procrit) 6,000 unit IV TTS [facility] Last Admin: 06/13/17 11:45 Dose: 6,000 unit Ergocalciferol (Drisdol 50,000 Intl Units Cap) 1 cap PO Q7D [facility] Last Admin: 06/11/17 10:34 Dose: 1 cap Famotidine (Pepcid) 20 mg PO DAILY [facility] Last Admin: 06/13/17 12:31 Dose: 20 mg Ferrous Gluconate (Fergon) 324 mg PO TID [facility] Last Admin: 06/13/17 14:25 Dose: 324 mg Heparin Sodium (Porcine) (Heparin) 3,700 units IVP TTS [facility] Stop: 06/18/17 10:01 Last Admin: 06/13/17 11:42 Dose: 3,700 units Hydralazine HCl (Apresoline) 25 mg PO Q4 PRN PRN Reason: Other Last Admin: 06/10/17 01:00 Dose: 25 mg Hydromorphone HCl (Dilaudid) 0.5 mg IVP Q3 PRN PRN Reason: Pain, severe (8-10) Last Admin: 06/11/17 03:04 Dose: 0.5 mg Cefazolin Sodium/Dextrose (Ancef Iv 1 Gm Duplex) 1 gm in 50 mls @ 100 mls/hr IVPB TTS [facility] Last Admin: 06/13/17 12:38 Dose: 100 mls/hr Insulin Aspart (Novolog) 0 unit SC ACHS [facility] PRN Reason: Protocol Last Admin: 06/13/17 12:36 Dose: Not Given Losartan Potassium (Cozaar) 100 mg PO QPM [facility] Last Admin: 06/12/17 17:38 Dose: 100 mg - Labs Labs: 06/10/17 06:25 06/10/17 06:25 PT 12.7 SECONDS (9.7-12.2) H 06/10/17 06:25 INR 1.1 06/10/17 06:25 APTT 32 SECONDS (21-34) D 06/10/17 06:25
[2017-06-13 16:37] VITALS: BP 154/81; PULSE 66; RESP 19; TEMP 98; O2SAT 97
--- NOTE | 2017-06-15 15:39 | CP.PCM.PN ---
Subjective - Date & Time of Evaluation Date of Evaluation: 06/03/17 Time of Evaluation: 07:10 - Subjective Subjective: Patient seen and evaluated denies chest pain and dyspnea Physical examination - Constitutional Appears: Non-toxic, No Acute Distress - Head Exam Head Exam: NORMAL INSPECTION - Eye Exam Eye Exam: EOMI - ENT Exam ENT Exam: Mucous Membranes Moist - Respiratory Exam Respiratory Exam: Clear to Ausculation Bilateral, NORMAL BREATHING PATTERN. absent: Rales, Rhonchi, Wheezes - Cardiovascular Exam Cardiovascular Exam: REGULAR RHYTHM, +S1, +S2. absent: Gallop, Rubs, Murmur - GI/Abdominal Exam GI & Abdominal Exam: Soft, Normal Bowel Sounds. absent: Tenderness - Extremities Exam Extremities Exam: Pedal Edema Additional comments: pitting edema and venous stasis changes to mid calf b/l negative Shiloh's Warm toes b/l Right heel wrapped in clean bandage odorous feet - Neurological Exam Neurological Exam: Alert, Awake, Oriented x3 - Psychiatric Exam Psychiatric exam: Normal Affect, Normal Mood - Skin Skin Exam: Normal Color, Warm Objective - Vital Signs/Intake and Output Vital Signs (last 24 hours): Temp Pulse Resp BP Pulse Ox 98.0 F 66 19 154/81 H 97 06/13/17 16:35 06/13/17 16:35 06/13/17 16:35 06/13/17 16:35 06/13/17 16:35 - Labs Labs: 06/10/17 06:25 06/10/17 06:25 PT 12.7 SECONDS (9.7-12.2) H 06/10/17 06:25 INR 1.1 06/10/17 06:25 APTT 32 SECONDS (21-34) D 06/10/17 06:25 Assessment and Plan - Assessment and Plan (Free Text) Assessment: (1) PVD (peripheral vascular disease) Assessment & Plan: Dr. Romero on case Status: Acute (2) Diabetic infection of right foot Assessment & Plan: IV ancef 2gram post dialysis. Status: Acute (3) Acute on chronic renal failure Assessment & Plan: Patient has a permacath in for dialysis, nephrology is onboard. Continue with dialysis, will need to find out if patient needs AV fistula. Status: Acute (4) Encephalopathy acute Assessment & Plan: Seems to be improving, MRI/MRA today, neurology onboard. Laculose 20 gm daily. Status: Acute (5) CAD (coronary artery disease) Assessment & Plan: Aspirin, plavix, and Cretor 10mg. Status: Acute (6) Systolic CHF Assessment & Plan: on Beta kam, will need to follow up with Dr. Ledesma as far medical management. per report from cath, she has a LV EF of 25%. Status: Chronic (7) Anemia Assessment & Plan: Procrit 1000 units and also PO iron. Status: Chronic (8) Diabetes Assessment & Plan: sliding scale and accu checks with hypoglycemia protocol, Lantus 20 units daily HS. Status: Chronic (9) HTN (hypertension) Assessment & Plan: Coreg 3.125gm bid, hydralazine 25mg q4 prn, and also 50mg bid, Status: Acute (10) Depression Assessment & Plan: prozac 20mg daily Status: Chronic (11) Prophylactic measure Assessment & Plan: pepcid 20mg bid, carafacte, heparin 5000 units q8h, tylenol for pain. Status: Acute
--- NOTE | 2017-06-15 15:40 | CP.PCM.PN ---
Subjective - Date & Time of Evaluation Date of Evaluation: 06/05/17 Time of Evaluation: 07:25 - Subjective Subjective: Patient seen and evaluated Not in distress Denies chest pain Physical examination - Constitutional Appears: Non-toxic, No Acute Distress - Head Exam Head Exam: NORMAL INSPECTION - Eye Exam Eye Exam: EOMI - ENT Exam ENT Exam: Mucous Membranes Moist - Respiratory Exam Respiratory Exam: Clear to Ausculation Bilateral, NORMAL BREATHING PATTERN. absent: Rales, Rhonchi, Wheezes - Cardiovascular Exam Cardiovascular Exam: REGULAR RHYTHM, +S1, +S2. absent: Gallop, Rubs, Murmur - GI/Abdominal Exam GI & Abdominal Exam: Soft, Normal Bowel Sounds. absent: Tenderness - Extremities Exam Extremities Exam: Pedal Edema Additional comments: pitting edema and venous stasis changes to mid calf b/l negative Shiloh's Warm toes b/l Right heel wrapped in clean bandage odorous feet - Neurological Exam Neurological Exam: Alert, Awake, Oriented x3 - Psychiatric Exam Psychiatric exam: Normal Affect, Normal Mood - Skin Skin Exam: Normal Color, Warm Objective - Vital Signs/Intake and Output Vital Signs (last 24 hours): Temp Pulse Resp BP Pulse Ox 98.0 F 66 19 154/81 H 97 06/13/17 16:35 06/13/17 16:35 06/13/17 16:35 06/13/17 16:35 06/13/17 16:35 - Labs Labs: 06/10/17 06:25 06/10/17 06:25 PT 12.7 SECONDS (9.7-12.2) H 06/10/17 06:25 INR 1.1 06/10/17 06:25 APTT 32 SECONDS (21-34) D 06/10/17 06:25 Assessment and Plan - Assessment and Plan (Free Text) Assessment: (1) PVD (peripheral vascular disease) Assessment & Plan: Dr. Romero on case Status: Acute (2) Diabetic infection of right foot Assessment & Plan: IV ancef 2gram post dialysis. Status: Acute (3) Acute on chronic renal failure Assessment & Plan: Patient has a permacath in for dialysis, nephrology is onboard. Continue with dialysis, will need to find out if patient needs AV fistula. Status: Acute (4) Encephalopathy acute Assessment & Plan: Seems to be improving, MRI/MRA today, neurology onboard. Laculose 20 gm daily. Status: Acute (5) CAD (coronary artery disease) Assessment & Plan: Aspirin, plavix, and Cretor 10mg. Status: Acute (6) Systolic CHF Assessment & Plan: on Beta kam, will need to follow up with Dr. Ledesma as far medical management. per report from cath, she has a LV EF of 25%. Status: Chronic (7) Anemia Assessment & Plan: Procrit 1000 units and also PO iron. Status: Chronic (8) Diabetes Assessment & Plan: sliding scale and accu checks with hypoglycemia protocol, Lantus 20 units daily HS. Status: Chronic (9) HTN (hypertension) Assessment & Plan: Coreg 3.125gm bid, hydralazine 25mg q4 prn, and also 50mg bid, Status: Acute (10) Depression Assessment & Plan: prozac 20mg daily Status: Chronic (11) Prophylactic measure Assessment & Plan: pepcid 20mg bid, carafacte, heparin 5000 units q8h, tylenol for pain. Status: Acute
--- NOTE | 2017-06-15 15:42 | CP.PCM.PN ---
Subjective - Date & Time of Evaluation Date of Evaluation: 06/07/17 Time of Evaluation: 08:35 - Subjective Subjective: Patient seen and evaluated comfortable No cardiac avents Physical examination - Constitutional Appears: Non-toxic, No Acute Distress - Head Exam Head Exam: NORMAL INSPECTION - Eye Exam Eye Exam: EOMI - ENT Exam ENT Exam: Mucous Membranes Moist - Respiratory Exam Respiratory Exam: Clear to Ausculation Bilateral, NORMAL BREATHING PATTERN. absent: Rales, Rhonchi, Wheezes - Cardiovascular Exam Cardiovascular Exam: REGULAR RHYTHM, +S1, +S2. absent: Gallop, Rubs, Murmur - GI/Abdominal Exam GI & Abdominal Exam: Soft, Normal Bowel Sounds. absent: Tenderness - Extremities Exam Extremities Exam: Pedal Edema Additional comments: pitting edema and venous stasis changes to mid calf b/l negative Shiloh's Warm toes b/l Right heel wrapped in clean bandage odorous feet - Neurological Exam Neurological Exam: Alert, Awake, Oriented x3 - Psychiatric Exam Psychiatric exam: Normal Affect, Normal Mood - Skin Skin Exam: Normal Color, Warm Objective - Vital Signs/Intake and Output Vital Signs (last 24 hours): Temp Pulse Resp BP Pulse Ox 98.0 F 66 19 154/81 H 97 06/13/17 16:35 06/13/17 16:35 06/13/17 16:35 06/13/17 16:35 06/13/17 16:35 - Labs Labs: 06/10/17 06:25 06/10/17 06:25 PT 12.7 SECONDS (9.7-12.2) H 06/10/17 06:25 INR 1.1 06/10/17 06:25 APTT 32 SECONDS (21-34) D 06/10/17 06:25 Assessment and Plan - Assessment and Plan (Free Text) Assessment: (1) PVD (peripheral vascular disease) Assessment & Plan: Dr. Romero on case Status: Acute (2) Diabetic infection of right foot Assessment & Plan: IV ancef 2gram post dialysis. Status: Acute (3) Acute on chronic renal failure Assessment & Plan: Patient has a permacath in for dialysis, nephrology is onboard. Continue with dialysis, will need to find out if patient needs AV fistula. Status: Acute (4) Encephalopathy acute Assessment & Plan: Seems to be improving, MRI/MRA today, neurology onboard. Laculose 20 gm daily. Status: Acute (5) CAD (coronary artery disease) Assessment & Plan: Aspirin, plavix, and Cretor 10mg. Status: Acute (6) Systolic CHF Assessment & Plan: on Beta kam, will need to follow up with Dr. Ledesma as far medical management. per report from cath, she has a LV EF of 25%. Status: Chronic (7) Anemia Assessment & Plan: Procrit 1000 units and also PO iron. Status: Chronic (8) Diabetes Assessment & Plan: sliding scale and accu checks with hypoglycemia protocol, Lantus 20 units daily HS. Status: Chronic (9) HTN (hypertension) Assessment & Plan: Coreg 3.125gm bid, hydralazine 25mg q4 prn, and also 50mg bid, Status: Acute (10) Depression Assessment & Plan: prozac 20mg daily Status: Chronic (11) Prophylactic measure Assessment & Plan: pepcid 20mg bid, carafacte, heparin 5000 units q8h, tylenol for pain. Status: Acute
--- NOTE | 2017-06-15 15:43 | CP.PCM.PN ---
Subjective - Date & Time of Evaluation Date of Evaluation: 06/08/17 Time of Evaluation: 07:40 - Subjective Subjective: Patient seen and evaluated No chest pain or dyspnea Physical examination - Constitutional Appears: Non-toxic, No Acute Distress - Head Exam Head Exam: NORMAL INSPECTION - Eye Exam Eye Exam: EOMI - ENT Exam ENT Exam: Mucous Membranes Moist - Respiratory Exam Respiratory Exam: Clear to Ausculation Bilateral, NORMAL BREATHING PATTERN. absent: Rales, Rhonchi, Wheezes - Cardiovascular Exam Cardiovascular Exam: REGULAR RHYTHM, +S1, +S2. absent: Gallop, Rubs, Murmur - GI/Abdominal Exam GI & Abdominal Exam: Soft, Normal Bowel Sounds. absent: Tenderness - Extremities Exam Extremities Exam: Pedal Edema Additional comments: pitting edema and venous stasis changes to mid calf b/l negative Shiloh's Warm toes b/l Right heel wrapped in clean bandage odorous feet - Neurological Exam Neurological Exam: Alert, Awake, Oriented x3 - Psychiatric Exam Psychiatric exam: Normal Affect, Normal Mood - Skin Skin Exam: Normal Color, Warm Objective - Vital Signs/Intake and Output Vital Signs (last 24 hours): Temp Pulse Resp BP Pulse Ox 98.0 F 66 19 154/81 H 97 06/13/17 16:35 06/13/17 16:35 06/13/17 16:35 06/13/17 16:35 06/13/17 16:35 - Labs Labs: 06/10/17 06:25 06/10/17 06:25 PT 12.7 SECONDS (9.7-12.2) H 06/10/17 06:25 INR 1.1 06/10/17 06:25 APTT 32 SECONDS (21-34) D 06/10/17 06:25 Assessment and Plan - Assessment and Plan (Free Text) Assessment: (1) PVD (peripheral vascular disease) Assessment & Plan: Dr. Romero on case Status: Acute (2) Diabetic infection of right foot Assessment & Plan: IV ancef 2gram post dialysis. Status: Acute (3) Acute on chronic renal failure Assessment & Plan: Patient has a permacath in for dialysis, nephrology is onboard. Continue with dialysis, will need to find out if patient needs AV fistula. Status: Acute (4) Encephalopathy acute Assessment & Plan: Seems to be improving, MRI/MRA today, neurology onboard. Laculose 20 gm daily. Status: Acute (5) CAD (coronary artery disease) Assessment & Plan: Aspirin, plavix, and Cretor 10mg. Status: Acute (6) Systolic CHF Assessment & Plan: on Beta kam, will need to follow up with Dr. Ledesma as far medical management. per report from cath, she has a LV EF of 25%. Status: Chronic (7) Anemia Assessment & Plan: Procrit 1000 units and also PO iron. Status: Chronic (8) Diabetes Assessment & Plan: sliding scale and accu checks with hypoglycemia protocol, Lantus 20 units daily HS. Status: Chronic (9) HTN (hypertension) Assessment & Plan: Coreg 3.125gm bid, hydralazine 25mg q4 prn, and also 50mg bid, Status: Acute (10) Depression Assessment & Plan: prozac 20mg daily Status: Chronic (11) Prophylactic measure Assessment & Plan: pepcid 20mg bid, carafacte, heparin 5000 units q8h, tylenol for pain. Status: Acute
== END 2017-06-13 16:56 | DRG 270 ==
LOC: SUPCPDRO 06:45 → C.ER 06:45 → C.9E 08:33 → C.3T 14:03 → C.6T 05-23 22:33 → C.9I 05-25 06:52 → C.6T 06-03 23:20
PROVIDERS: ADMIT Internal Medicine Pulmonary Disease; ATTEND Internal Medicine Pulmonary Disease
PROC: 06HY33Z Insertion of Infusion Device into Lower Vein, Percutaneous Approach (ICD-10-PCS; 2017-05-17)
PROC: B41DZZZ Fluoroscopy of Aorta and Bilateral Lower Extremity Arteries (ICD-10-PCS; 2017-05-18)
PROC: B5181ZA Fluoroscopy of Superior Vena Cava using Low Osmolar Contrast, Guidance (ICD-10-PCS; 2017-05-23)
PROC: 5A1D70Z Performance of Urinary Filtration, Intermittent, Less than 6 Hours Per Day (ICD-10-PCS; 2017-05-23)
PROC: 02HV33Z Insertion of Infusion Device into Superior Vena Cava, Percutaneous Approach (ICD-10-PCS; principal; 2017-05-23 18:30)
PROC: 4A023N7 Measurement of Cardiac Sampling and Pressure, Left Heart, Percutaneous Approach (ICD-10-PCS; 2017-05-28)
PROC: B2111ZZ Fluoroscopy of Multiple Coronary Arteries using Low Osmolar Contrast (ICD-10-PCS; 2017-05-28)
PROC: B2151ZZ Fluoroscopy of Left Heart using Low Osmolar Contrast (ICD-10-PCS; 2017-05-28)
PROC: 04CN3ZZ Extirpation of Matter from Left Popliteal Artery, Percutaneous Approach (ICD-10-PCS; 2017-06-03)
PROC: 047N3D1 Dilation of Left Popliteal Artery with Intraluminal Device, using Drug-Coated Balloon, Percutaneous Approach (ICD-10-PCS; 2017-06-03)
PROC: 04CS3ZZ Extirpation of Matter from Left Posterior Tibial Artery, Percutaneous Approach (ICD-10-PCS; 2017-06-03)
PROC: 047S3DZ Dilation of Left Posterior Tibial Artery with Intraluminal Device, Percutaneous Approach (ICD-10-PCS; 2017-06-03)
PROC: 03180ZD Bypass Left Brachial Artery to Upper Arm Vein, Open Approach (ICD-10-PCS; 2017-06-10)
DX: E11.52 Type 2 diabetes mellitus with diabetic peripheral angiopathy with gangrene (principal); G93.40 Encephalopathy, unspecified; I13.2 Hypertensive heart and chronic kidney disease with heart failure and with stage 5 chronic kidney disease, or end stage renal disease; N17.9 Acute kidney failure, unspecified; I82.621 Acute embolism and thrombosis of deep veins of right upper extremity; E66.01 Morbid (severe) obesity due to excess calories; I27.20 Pulmonary hypertension, unspecified; I50.23 Acute on chronic systolic (congestive) heart failure; N18.6 End stage renal disease; L97.429 Non-pressure chronic ulcer of left heel and midfoot with unspecified severity; L97.419 Non-pressure chronic ulcer of right heel and midfoot with unspecified severity; I42.0 Dilated cardiomyopathy; E11.22 Type 2 diabetes mellitus with diabetic chronic kidney disease; E11.621 Type 2 diabetes mellitus with foot ulcer; D63.1 Anemia in chronic kidney disease; D50.9 Iron deficiency anemia, unspecified; E55.9 Vitamin D deficiency, unspecified; E78.5 Hyperlipidemia, unspecified; E86.0 Dehydration; E87.5 Hyperkalemia; Z68.36 Body mass index [BMI] 36.0-36.9, adult; F03.90 Unspecified dementia, unspecified severity, without behavioral disturbance, psychotic disturbance, mood disturbance, and anxiety; F32.9 Major depressive disorder, single episode, unspecified; I25.5 Ischemic cardiomyopathy; I25.10 Atherosclerotic heart disease of native coronary artery without angina pectoris; J44.9 Chronic obstructive pulmonary disease, unspecified; N14.1 Nephropathy induced by other drugs, medicaments and biological substances; T50.8X5A Adverse effect of diagnostic agents, initial encounter; Z79.4 Long term (current) use of insulin; Z86.73 Personal history of transient ischemic attack (TIA), and cerebral infarction without residual deficits; Z91.19 Patient's noncompliance with other medical treatment and regimen; Z99.2 Dependence on renal dialysis; I25.2 Old myocardial infarction

== ENCOUNTER 2017-09-05 07:26 | Day surgery (SDC) | payer MEDICARE, MEDICAID ==
[2017-09-05] MEDS ORDERED: HEPARIN-NS 5,000 UNITS/500 ML 10,000 UNIT/1,000 ML BAG IV ONE (08:30)
[2017-09-05] MEDS ORDERED: Iohexol 240 200 ML ONE (08:31)
[2017-09-05 08:58] LABS: CALCIUM 8.9 mg/dl (8.6-10.4)
[2017-09-05] MEDS ORDERED: ceFAZolin 1 gm in NS 2 GM/200 ML BAG IVPB ONE (10:07)
[2017-09-05] MEDS ORDERED: Propofol 10 mg/ml Inj (20 ML) ONE (11:13)
[2017-09-05] MEDS ORDERED: Sodium Chloride 0.9% 500 ML IV ONE (11:20)
[2017-09-05] MEDS ORDERED: Sodium Chloride 0.9% 1,000 ML IV SCH (13:30)
--- NOTE | 2017-09-05 14:10 | PCM.SURG1 ---
Surgeon's Initial Post Op Note - Surgeon's Notes Surgeon: Dr. Romero Electrostatic Painter: Zakiya PGY1; Betty MS3 Type of Anesthesia: General LMA Anesthesia Administered By: Dr. Arevalo Pre-Operative Diagnosis: Renal Failure; Left Brachiobasilic AVF Operative Findings: See Operative report. Post-Operative Diagnosis: Renal Failure Operation Performed: Attempted superficialization of Left AVF. Creation of Left Brachiobasilic AV Graft with GORE-CLAUDIA Specimen/Specimens Removed: none Estimated Blood Loss: EBL {In ML}: 50 Blood Products Given: N/A Drains Used: No Drains Post-Op Condition: Fair Date of Surgery/Procedure: 09/05/17 Time of Surgery/Procedure: 14:14
[2017-09-05 16:12] VITALS: O2SAT 95
[2017-09-05 16:39] VITALS: BP 139/75; PULSE 71; RESP 15; TEMP 97.1
--- NOTE | 2017-09-06 01:18 | OP ---
PROCEDURE DATE: PREOPERATIVE DIAGNOSES: Renal failure, immature fistula, left arm. POSTOPERATIVE DIAGNOSIS: Renal failure, immature fistula, left arm. PROCEDURE: Revision of arteriovenous fistula with creation of arteriovenous shunt left upper arm using a bovine graft. SURGEON: Devon Romero Jr., MD CROWNING HAMMER OPERATOR: Dr. Shanelle Sigala. ANESTHESIOLOGIST: Dr. Pompa. DESCRIPTION OF PROCEDURE: The patient is an elderly woman with renal insufficiency, who had fistula created in her arm which is , required mobilization. After we began to mobilize this, it was apparent that there was not adequate flow through this portion of the arterial and basilic vein. The forearm portion of the vein had not arterialized very well and because of this, we then changed our plans and placed a shunt in the upper arm using a bovine shunt and ansotomizing it to the basilic vein above this and towards the axilla, but not yet in the axilla and then ansotomizing to the arterialis portion of the cephalic vein at the elbow. This was done using loupe magnification and heparin anticoagulation. At the end of the procedure, there was excellent flow to the fistula. There was still excellent flow to the graft, initially the . So the operation carried out was revisionary, the fistula creation of AV shunt using bovine graft. The arterial anastomosis was based off the distal portion of the arterialized cephalic vein and the distal portion is into the basilic vein. Wounds were closed with Monocryl and nylon sutures. Skin closure was applied. Blood loss of the procedure was 100 mL. Operation carried out, revision of the AV fistula of the left arm with creation of AV shunt. Devon Romero Jr., MD
== END 2017-09-05 17:00 | disposition home or self-care (01) ==
LOC: C.SDS 07:26
PROVIDERS: ATTEND Surgery Vascular Surgery
DX: T82.590A Other mechanical complication of surgically created arteriovenous fistula, initial encounter (principal); Y83.2 Surgical operation with anastomosis, bypass or graft as the cause of abnormal reaction of the patient, or of later complication, without mention of misadventure at the time of the procedure; N18.6 End stage renal disease; E11.22 Type 2 diabetes mellitus with diabetic chronic kidney disease; I13.2 Hypertensive heart and chronic kidney disease with heart failure and with stage 5 chronic kidney disease, or end stage renal disease; I50.9 Heart failure, unspecified; Z99.2 Dependence on renal dialysis; E11.51 Type 2 diabetes mellitus with diabetic peripheral angiopathy without gangrene; F03.90 Unspecified dementia, unspecified severity, without behavioral disturbance, psychotic disturbance, mood disturbance, and anxiety; Z79.82 Long term (current) use of aspirin; Z79.4 Long term (current) use of insulin; Z79.899 Other long term (current) drug therapy
CPT/HCPCS: 36415; 36832; 80048; J0690; J1644; J2704; J3010; J7040

== ENCOUNTER 2018-05-11 18:59 | Inpatient (IN) | payer MEDICARE, MEDICAID ==
[2018-05-11 19:00] VITALS: BMI 30.4
[2018-05-11] MEDS ORDERED: Vancomycin 1 GM 1 GM/250 ML BAG IV STA (19:38)
[2018-05-11] MEDS ORDERED: Cefepime 1 GM in Sodium Chloride 0.9% 50 ML IVPB STA (19:38)
[2018-05-11] MEDS ORDERED: Vancomycin 1 GM 1 GM/250 ML BAG IVPB ONE (19:57)
[2018-05-11 20:00] LABS: VENOUS BLOOD GAS BASE EXCESS 3.7 mmol/L (0.0-2.0); VENOUS BLOOD GAS PCO2 54 mmHg (40-60); VENOUS BLOOD GAS PO2 25 mm/Hg (30-55); VENOUS BLOOD PH 7.36 (7.32-7.43)
[2018-05-11 20:08] LABS: BASO # 0.1 K/uL (0.0-0.2); BASO % 0.5 % (0.0-2.0); EOS # 0.2 K/uL (0.0-0.7); EOS % 1.5 % (0.0-4.0); HEMOGLOBIN 11.4 g/dL (11.0-16.0); LYMPH # 1.4 K/uL (1.0-4.3); LYMPH % 10.7 % (20.0-40.0); MEAN CELL VOLUME 100.1 fL (81.0-99.0); MEAN CORPUSCULAR HEMOGLOBIN 33.4 pg (27.0-31.0); MEAN CORPUSCULAR HGB CONC 33.4 g/dL (33.0-37.0); MEAN PLATELET VOLUME 8.2 fL (7.2-11.7); MONO # 1.5 K/uL (0.0-0.8); NEUT # 9.7 K/uL (1.8-7.0); NEUT % 75.3 % (50.0-75.0); NRBC % 0.2 % (0.0-2.0); RBC 3.41 Mil/uL (3.80-5.20); RED CELL DISTRIBUTION WIDTH 13.9 % (11.5-14.5); WHITE BLOOD COUNT 12.8 K/uL (4.8-10.8)
[2018-05-11 20:13] LABS: ALB/GLOB RATIO 0.9 (1.0-2.1); ALBUMIN 4.1 g/dL (3.5-5.0)
[2018-05-11] MEDS ORDERED: Sodium Chloride 0.9% 1,000 ML ONE (20:24)
[2018-05-11] MEDS ORDERED: Sodium Chloride 0.9% 250 ML IV ONE (20:24)
--- NOTE | 2018-05-11 20:30 | C.PDOC ---
History Of Present Illness 68 year old female with PMHx of Diabetes and ESRD brought to the ED by her son for evaluation of right big toe injury. Son states he does not know when patient injured her foot (patient is unsure of this herself). 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 Today, the son states he noticed the skin of her right big toe appeared black, the nail was hanging off and there was a foul smell coming from the wound. Patient and son deny fever/chills, other injuries. Time Seen by Provider: 05/11/18 19:10 Chief Complaint (Nursing): Lower Extremity Problem/Injury History Per: Patient, Family (son ) History/Exam Limitations: no limitations Onset/Duration Of Symptoms: Unknown Current Symptoms Are (Timing): Still Present Severity: Moderate Additional History Per: Patient, Family Past Medical History Reviewed: Historical Data, Nursing Documentation, Vital Signs Vital Signs: Last Vital Signs Temp 98.7 F 05/11/18 19:19 Pulse 88 05/11/18 19:19 Resp 16 05/11/18 19:19 BP 151/78 H 05/11/18 19:19 Pulse Ox 100 05/11/18 19:19 - Medical History PMH: CHF ("CHRONIC"), Dementia, Diabetes, HTN, Hypercholesterolemia, End Stage Renal Disease, Chronic Kidney Disease Surgical History: No Surg Hx - [facility] Procedures (05/13/17) ANGIOPLASTY OF OTHER NON-CORONARY VESSEL(S) (09/15/14) ATHERECTOMY OF OTHER NON-CORONARY VESSEL(S) (01/14/14) BYPASS LEFT BRACHIAL ARTERY TO UPPER ARM VEIN, OPEN APPROACH (05/13/17) CONTRAST ARTERIOGRAM-LEG (09/15/14) DILATE L POPL ART W INTRALUM DEV, DRUG BLLN, PERC (05/13/17) DILATION OF L POST TIB ART WITH INTRALUM DEV, PERC APPROACH (05/13/17) EXTIRPATION OF MATTER FROM L POPL ART, PERC APPROACH (05/13/17) EXTIRPATION OF MATTER FROM L POST TIB ART, PERC APPROACH (05/13/17) FLUOROSCOPY OF AORTA AND BILATERAL LOWER EXTREMITY ARTERIES (05/13/17) FLUOROSCOPY OF LEFT HEART USING LOW OSMOLAR CONTRAST (05/13/17) FLUOROSCOPY OF MULT COR ART USING L OSM CONTRAST (05/13/17) FLUOROSCOPY OF SUP VENA CAVA USING L OSM CONTRAST, GUIDANCE (05/13/17) INSEJ [id number] PERIPHERAL NON-CORONARY VES STENT(S) (02/10/14) INSEJ OF DRUG-ELUTING STENT(S) OF OTH PERIPHERAL VESSEL(S) (09/15/14) INSERTION OF INFUSION DEV INTO SUP VENA CAVA, PERC APPROACH (05/13/17) INSERTION OF INFUSION DEVICE INTO LOWER VEIN, PERC APPROACH (05/13/17) INSERTION OF ONE VASCULAR STENT (09/15/14) LOC EXC LES METATAR/TAR (03/20/14) MEASURE OF CARDIAC SAMPL & PRESSURE, L HEART, PERC APPROACH (05/13/17) PACKED CELL TRANSFUSION (01/14/14) PROCEDURE ON SINGLE VESSEL (09/15/14) RADICAL EXCIS SKIN LES (01/11/99) VENOUS CATHETERIZATION NEC (03/03/14) Family History: States: No Known Family Hx - Social History Hx Tobacco Use: No Hx Alcohol Use: No Hx Substance Use: No - Immunization History Hx Tetanus Toxoid Vaccination: No (unknown) Hx Influenza Vaccination: No (unknown) Hx Pneumococcal Vaccination: (unknown) Review Of Systems Constitutional: Negative for: Fever, Chills Cardiovascular: Negative for: Chest Pain, Palpitations Respiratory: Negative for: Shortness of Breath Skin: Positive for: Other (right big toe: black skin, nailbed hanging off, and foul smell ). Negative for: Rash Physical Exam - Physical Exam Appears: Well, Non-toxic, No Acute Distress Skin: Normal Color, Warm, Dry Eye(s): bilateral: Normal Inspection Oral Mucosa: Moist Neck: Supple Chest: Symmetrical, No Deformity, No Tenderness, Other (life vest in place ) Cardiovascular: Rhythm Regular, No Murmur Respiratory: Normal Breath Sounds, No Rales, No Rhonchi, No Wheezing Gastrointestinal/Abdominal: Normal Exam, Bowel Sounds, Soft, No Tenderness, No Guarding, No Rebound Extremity: Normal ROM, No Calf Tenderness, No Swelling (calf ), Other (left foot 5th digit is amputated. right big toe: necrotic wound with foul-smelling discharge ) Pulses: Left Dorsalis Pedis: Normal, Right Dorsalis Pedis: Normal Neurological/Psych: Oriented x3, No Normal Sensation (decreased sensation B/L feet) ED Course And Treatment - Laboratory Results Result Diagrams: 05/17/18 08:03 05/17/18 08:03 ECG: Interpreted By Me, Viewed By Me ECG Rhythm: Sinus Rhythm ECG Interpretation: No Acute Changes Interpretation Of ECG: Normal Sinus Rhythm at rate 81bpm. Left axis deviation. Right bundle branch block. No acute ST/T wave changes. Rate From EC O2 Sat by Pulse Oximetry: 100 (on RA) Pulse Ox Interpretation: Normal Progress Note: Bloodwork, CXR, EKG, Right foot great toe XRay ordered and reviewed. Patient given IV NS bolus, IV Vancomycin and IV Cefepime. Nail of right large toe hanging off necrotic skin, removed by me. Patient tolerated well. Used doppler, (+) faint pedal pulse heard right foot. - Physician Consult Information Physician Contacted: Maite Denis Outcome Of Conversation: Discussed patient with PMD, agrees with admission to his service with Dr. Romero for vascular surgery. Surgery resident notified of consult. Disposition - Disposition Disposition: HOSPITALIZED Disposition Time: 20:31 Condition: STABLE - Clinical Impression Clinical Impression: Gangrene of toe of right foot, ESRD on hemodialysis, Leukocytosis - Scribe Statement The provider has reviewed the documentation as recorded by the Scribe (Mariaelena Swanson) Provider Attestation: All medical record entries made by the Scribe were at my direction and personally dictated by me. I have reviewed the chart and agree that the record accurately reflects my personal performance of the history, physical exam, medical decision making, and the department course for this patient. I have also personally directed, reviewed, and agree with the discharge instructions and disposition. Decision To Admit - Pt Status Changed To: Hospital Disposition Of: Inpatient - Admit Certification Admit to Inpatient:: After my assessment, the patient will require hospitalization for at least two midnights. This is because of the severity of symptoms shown, intensity of services needed, and/or the medical risk in this patient being treated as an outpatient. - InPatient: Physician Admission Certification: I certify that this patient requires 2 or more midnights of care for the following reason:: see notes - . Bed Request Type: Regular Admitting Physician: Maite Denis Patient Diagnosis: Gangrene of toe of right foot, Leukocytosis, ESRD on hemodialysis
[2018-05-11 21:05] LABS: VENOUS BLOOD GAS BASE EXCESS 2.8 mmol/L (0.0-2.0); VENOUS BLOOD GAS PCO2 47 mmHg (40-60); VENOUS BLOOD GAS PO2 24 mm/Hg (30-55); VENOUS BLOOD PH 7.39 (7.32-7.43)
--- NOTE | 2018-05-11 22:04 | CP.PCM.CON ---
History of Present Illness - History of Present Illness History of Present Illness: Vascular Surgery Consult: Dr. Romero Pt is a 68F well known to the vascular service with significant PVD/PAD along with DM, ESRD on HD (TThSat), CAD, HTN, CHF, chronic anemia, obesity & depression who presents to [facility] ER with complaints of "black big toe" on the R foot. Pt was brought in by her son who states that he noticed her toe discoloration this morning with the nail hanging off. Pt doesn't recall hurting her foot and denies any trauma to the toe. Pt's son also noted foul smelling yellow discharge from the toe. Pt states she is able to move her toes and denies pain. Her only compliant is that her foot feels cold. Denies fevers/chills, nausea/vomiting, chest pain or SOB. PMHx: as listed above PSHx: L arm AVF, permacath insertion, aortofemoral angio, cardiac cath SocialHx: denies smoking, EtOH/drugs NKDA Review of Systems - Review of Systems All systems: reviewed and no additional remarkable complaints except (as per HPI) Past Patient History - Infectious Disease Hx of Infectious Diseases: None - Past Medical History & Family History Past Medical History?: Yes - Past Social History Smoking Status: Never Smoked - CARDIAC Hx Congestive Heart Failure: Yes ("CHRONIC") Hx Hypercholesterolemia: Yes Hx Hypertension: Yes - NEUROLOGICAL Hx Dementia: Yes - RENAL Hx Chronic Kidney Disease: Yes - ENDOCRINE/METABOLIC Hx Endocrine Disorders: Yes Hx Diabetes Mellitus Type 2: Yes - INTEGUMENTARY Hx Dermatological Problems: Yes Other/Comment: HX:pt. w/ diabetic ulcer-left heel - MUSCULOSKELETAL/RHEUMATOLOGICAL Hx Musculoskeletal Disorders: Yes Hx Falls: Yes Hx Osteomyelitis: Yes Hx Unsteady Gait: Yes - GENITOURINARY/GYNECOLOGICAL Hx Genitourinary Disorders: Yes Hx Incontinence: Yes - PSYCHIATRIC Hx Substance Use: No - SURGICAL HISTORY Hx Surgeries: Yes Hx Amputation: Yes (Toe) Hx Angiogram: Yes Hx Angioplasty: Yes (02/10/14) Hx Arteriovenous Shunt: Yes (LEFT ARM) Hx Vascular Access Device: Yes (RIGHT CHEST PERMACATH) - ANESTHESIA Hx Anesthesia: Yes Hx Anesthesia Reactions: No Hx Malignant Hyperthermia: No Meds Allergies/Adverse Reactions: Allergies Allergy/AdvReac Type Severity Reaction Status Date / Time No Known Allergies Allergy Verified 03/20/14 15:10 Physical Exam - Constitutional Appears: No Acute Distress - Head Exam Head Exam: ATRAUMATIC, NORMOCEPHALIC - Eye Exam Eye Exam: Normal appearance - ENT Exam ENT Exam: Mucous Membranes Moist - Respiratory Exam Respiratory Exam: NORMAL BREATHING PATTERN - Cardiovascular Exam Cardiovascular Exam: RRR - GI/Abdominal Exam GI & Abdominal Exam: Soft - Extremities Exam Additional comments: R big toe with blue discoloration, foul smelling discharge noted, no tenderness to palpation. R foot/toes warm, sensation/motor intact in all toes. no palpable pulses or doppler signals in the DP/PT - Neurological Exam Neurological exam: Alert - Skin Skin Exam: Warm Results - Vital Signs Recent Vital Signs: Last Vital Signs Temp 98.7 F 05/11/18 19:19 Pulse 88 05/11/18 19:19 Resp 16 05/11/18 19:19 BP 151/78 H 05/11/18 19:19 Pulse Ox 100 05/11/18 20:46 - Labs Result Diagrams: 05/11/18 19:56 05/11/18 20:57 Labs: Laboratory Results - last 24 hr 05/11/18 05/11/18 05/11/18 07:50 08:55 19:20 WBC RBC Hgb Hct MCV MCH MCHC RDW Plt Count MPV Neut % (Auto) Lymph % (Auto) [place] % (Auto) Eos % (Auto) Baso % (Auto) Neut # (Auto) Lymph # (Auto) [place] # (Auto) Eos # (Auto) Baso # (Auto) ESR pO2 25 L 24 L VBG pH 7.36 7.39 VBG pCO2 54 47 VBG HCO3 26.3 25.6 VBG Total CO2 32.2 H 29.9 H VBG O2 Sat (Calc) 43.4 44.7 VBG Base Excess 3.7 H 2.8 H VBG Potassium 5.3 H 4.3 Sodium 140.0 140.0 Chloride 104.0 106.0 Glucose 177 H 152 H Lactate 3.6 H 3.3 H Potassium Carbon Dioxide Anion Gap BUN Creatinine Est GFR ( Amer) Est GFR (Non-Af Amer) POC Glucose (mg/dL) 211 H Random Glucose Calcium Total Bilirubin AST ALT Alkaline Phosphatase Total Creatine Kinase Total Protein Albumin Globulin Albumin/Globulin Ratio Venous Blood Potassium 5.3 H 4.3 05/11/18 05/11/18 05/11/18 19:56 19:56 20:57 WBC 12.8 H D RBC 3.41 L Hgb 11.4 D Hct 34.1 MCV 100.1 H D MCH 33.4 H MCHC 33.4 RDW 13.9 Plt Count 334 MPV 8.2 Neut % (Auto) 75.3 H Lymph % (Auto) 10.7 L [place] % (Auto) 12.0 H Eos % (Auto) 1.5 Baso % (Auto) 0.5 Neut # (Auto) 9.7 H Lymph # (Auto) 1.4 [place] # (Auto) 1.5 H Eos # (Auto) 0.2 Baso # (Auto) 0.1 ESR 120 H pO2 VBG pH VBG pCO2 VBG HCO3 VBG Total CO2 VBG O2 Sat (Calc) VBG Base Excess VBG Potassium Sodium 135 Chloride 94 L Glucose Lactate Potassium 6.1 H 4.5 Carbon Dioxide 28 Anion Gap 19 BUN 47 H Creatinine 6.0 H Est GFR ( Amer) 8 Est GFR (Non-Af Amer) 7 POC Glucose (mg/dL) Random Glucose 196 H Calcium 9.0 Total Bilirubin 0.6 AST 27 ALT 29 Alkaline Phosphatase 176 H D Total Creatine Kinase 77 Total Protein 8.7 H Albumin 4.1 Globulin 4.5 H Albumin/Globulin Ratio 0.9 L Venous Blood Potassium Assessment & Plan - Assessment and Plan (Free Text) Assessment: 68F with gangrenous R big toe 2/2 PAD/PVD Plan: - IV ABX - CT abdomen with ileofemoral runoff - TEREAS/PVRs - further recs per Dr. Heather Chinchilla
[2018-05-11 22:54] LABS: VENOUS BLOOD GAS BASE EXCESS 3.9 mmol/L (0.0-2.0); VENOUS BLOOD GAS PCO2 51 mmHg (40-60); VENOUS BLOOD GAS PO2 19 mm/Hg (30-55); VENOUS BLOOD PH 7.38 (7.32-7.43)
[2018-05-12 06:48] LABS: BASO % 0.4 % (0.0-2.0); EOS # 0.2 K/uL (0.0-0.7); EOS % 1.8 % (0.0-4.0); HEMOGLOBIN 9.9 g/dL (11.0-16.0); LYMPH # 1.5 K/uL (1.0-4.3); LYMPH % 14.5 % (20.0-40.0); MEAN CELL VOLUME 99.8 fL (81.0-99.0); MEAN CORPUSCULAR HEMOGLOBIN 33.8 pg (27.0-31.0); MEAN CORPUSCULAR HGB CONC 33.9 g/dL (33.0-37.0); MEAN PLATELET VOLUME 8.1 fL (7.2-11.7); MONO # 1.3 K/uL (0.0-0.8); MONO % 12.5 % (0.0-10.0); NEUT # 7.4 K/uL (1.8-7.0); NEUT % 70.8 % (50.0-75.0); RBC 2.91 Mil/uL (3.80-5.20); RED CELL DISTRIBUTION WIDTH 13.7 % (11.5-14.5); WHITE BLOOD COUNT 10.4 K/uL (4.8-10.8)
[2018-05-12 07:00] LABS: CALCIUM 8.6 mg/dl (8.6-10.4)
--- NOTE | 2018-05-12 09:32 | RAD ---
Date of service: 05/11/2018 HISTORY: RIGHT GREAT TOE NECROSIS COMPARISON: 06/08/2017 FINDINGS: LUNGS: The lungs are well inflated and clear. PLEURA: No pleural effusions or pneumothorax. CARDIOVASCULAR: The heart is normal in size. No aortic atherosclerotic calcification present. OSSEOUS STRUCTURES: Within normal limits for the patient's age. VISUALIZED UPPER ABDOMEN: Normal. OTHER FINDINGS: There are battery and leads overlying the chest. IMPRESSION: No active pulmonary disease.
--- NOTE | 2018-05-12 11:24 | CP.PCM.PN ---
Subjective - Date & Time of Evaluation Date of Evaluation: 05/12/18 Time of Evaluation: 11:20 - Subjective Subjective: Progress note. Attending: Dr. Denis. This is a 68 yo female with past medical hx of significant PVD/PAD along with DM, ESRD on HD (Saturday, , Saturday), CAD, HTN, CHF, chronic anemia, obesity & depression who presents to [facility] ER with complaint of gangrenous toe. Patient was brought in by her son who states that he noticed her toe discoloration this morning with the nail hanging off. Patient doesn't recall hu rting her foot and denies any trauma to the toe or foot. Pt's son also noted foul smelling yellow discharge from the toe. Pt states she is able to move her toes and denies pain. Her only complaint is that her foot feels cold. Denies fevers/chills, nausea/vomiting, chest pain or SOB. PMH: CAD, peripheral vascular disease, DM, HTN, anemia PSH: L arm AVF, permacath insertion, aortofemoral angio, cardiac cath Social : denies smoking, drinking, drug use. Allergies: NKDA FH: Denies Objective - Vital Signs/Intake and Output Vital Signs (last 24 hours): Temp Pulse Resp BP Pulse Ox 99.6 F 78 20 136/64 96 05/12/18 08:25 05/12/18 08:25 05/12/18 08:25 05/12/18 08:25 05/12/18 08:25 Intake and Output: 05/12/18 05/12/18 06:59 18:59 Intake Total 240 Balance 240 - Medications Medications: Current Medications Cefepime HCl 1 gm/ Dextrose 50 mls @ 100 mls/hr IVPB Q12H DONALD; Protocol Last Admin: 05/12/18 08:33 Dose: 100 mls/hr Vancomycin HCl 1 gm/ Sodium (Chloride) 250 mls @ 166.7 mls/hr IVPB Q24H DONALD; Protocol Last Admin: 05/12/18 08:38 Dose: 166.7 mls/hr - Labs Labs: 05/12/18 06:39 05/12/18 06:39 - Constitutional Appears: Non-toxic, No Acute Distress - Head Exam Head Exam: ATRAUMATIC, NORMAL INSPECTION, NORMOCEPHALIC - Eye Exam Eye Exam: EOMI - Respiratory Exam Respiratory Exam: NORMAL BREATHING PATTERN. absent: Respiratory Distress - Cardiovascular Exam Cardiovascular Exam: +S1, +S2 - GI/Abdominal Exam GI & Abdominal Exam: Soft, Normal Bowel Sounds. absent: Tenderness - Extremities Exam Extremities Exam: absent: Full ROM, Normal Inspection - Neurological Exam Neurological Exam: Alert, Awake, Oriented x3 - Psychiatric Exam Psychiatric exam: Normal Affect, Normal Mood - Skin Skin Exam: Dry, Intact, Normal Color, Warm Assessment and Plan - Assessment and Plan (Free Text) Assessment: This is a 68 yo female with 1. Gangrene of toe -vascular sx consult. Dr. Romero. recs appreciated. -ID consult. Dr. Nunez. recs appreciated. -on IV cefepime. -CT angio with runoff pending -ABIs pending 2. Hx of PVD -ABIs pending -vascular surgery consult. Dr. Romero. recs appreciated. 3. hx of CKD -nephrology consult. Dr. Torres. recs appreciated -nephro uday -sevelamer -losartan daily 3. Hx of diabetes -HGB a1c 6.7 -ISS -hypoglycemia protocol 4. Hx of CAD -continue coreg BID -cardio consult. Dr. Ledesma. recs apprecated. 5. Hx of CHF -cardio consult. recs appreciated. Dr. Ledesma. -continue coreg BID. 6. Anemia -likely secondary to CKD -procrit 4000 IV TTS -transfusions as needed 7. hx of hypertension -continue losartan daily 7. GI/DVT -heart healthy diet discussed with Dr. Denis.
--- NOTE | 2018-05-12 11:47 | CP.PCM.CON ---
History of Present Illness - History of Present Illness History of Present Illness: 68F with significant PVD/PAD along with DM, ESRD on HD (TThSat), CAD, HTN, CHF, chronic anemia, obesity & depression who presents to [facility] ER with complaints of "black big toe" on the R foot. Pt's son also noted foul smelling yellow discharge from the toe. Pt states she is able to move her toes and denies pain. ID consulted for this PMHx: as listed above PSHx: L arm AVF, permacath insertion, aortofemoral angio, cardiac cath SocialHx: denies smoking, EtOH/drugs NKDA Review of Systems - Review of Systems All systems: reviewed and no additional remarkable complaints except Past Patient History - Infectious Disease Hx of Infectious Diseases: None - Past Medical History & Family History Past Medical History?: Yes - Past Social History Smoking Status: Never Smoked - CARDIAC Hx Cardiac Disorders: Yes Hx Congestive Heart Failure: Yes ("CHRONIC") Hx Hypercholesterolemia: Yes Hx Hypertension: Yes Other/Comment: With LifeVest - PULMONARY Hx Respiratory Disorders: No - NEUROLOGICAL Hx Neurological Disorder: Yes Hx Dementia: Yes - HEENT Hx HEENT Problems: No - RENAL Hx Chronic Kidney Disease: Yes Hx Dialysis: Yes Type of Dialysis Access: left arm AVS, T-Th-S Date of Last Dialysis Treatment: 05/10/18 - ENDOCRINE/METABOLIC Hx Endocrine Disorders: Yes Hx Diabetes Mellitus Type 2: Yes - HEMATOLOGICAL/ONCOLOGICAL Hx Blood Disorders: No - INTEGUMENTARY Hx Dermatological Problems: Yes Other/Comment: HX:pt. w/ diabetic ulcer-left heel, right big toe necrosis - MUSCULOSKELETAL/RHEUMATOLOGICAL Hx Musculoskeletal Disorders: Yes Hx Falls: Yes Hx Osteomyelitis: Yes - GASTROINTESTINAL Hx Gastrointestinal Disorders: No - GENITOURINARY/GYNECOLOGICAL Hx Genitourinary Disorders: Yes Hx Incontinence: Yes - PSYCHIATRIC Hx Psychophysiologic Disorder: No Hx Substance Use: No - SURGICAL HISTORY Hx Surgeries: Yes Hx Amputation: Yes (bilateral 5th toe) Hx Angiogram: Yes Hx Angioplasty: Yes (02/10/14) Hx Arteriovenous Shunt: Yes (LEFT ARM) - ANESTHESIA Hx Anesthesia: Yes Hx Anesthesia Reactions: No Hx Malignant Hyperthermia: No Meds Allergies/Adverse Reactions: Allergies Allergy/AdvReac Type Severity Reaction Status Date / Time No Known Allergies Allergy Verified 03/20/14 15:10 - Medications Medications: Current Medications Carvedilol (Coreg) 3.125 mg PO BID [facility] Dextrose (Dextrose 50% Inj) 0 ml IV STAT PRN; Protocol PRN Reason: Hypoglycemia Protocol Dextrose (Glutose 15) 0 gm PO ONCE PRN; Protocol PRN Reason: Hypoglycemia Protocol Glucagon (Glucagen Diagnostic Kit) 0 mg IM STAT PRN; Protocol PRN Reason: Hypoglycemia Protocol Cefepime HCl 1 gm/ Dextrose 50 mls @ 100 mls/hr IVPB Q12H DONALD; Protocol Last Admin: 05/12/18 08:33 Dose: 100 mls/hr Dextrose (Dextrose 5% In Water 1000 Ml) 1,000 mls @ 0 mls/hr IV .Q0M PRN; Protocol PRN Reason: Hypoglycemia Protocol Vancomycin HCl 1 gm/ Sodium (Chloride) 250 mls @ 166.7 mls/hr IVPB MWF [facility]; Protocol Insulin Human Regular (Novolin R) 0 unit SC ACHS [facility]; Protocol Sevelamer Carbonate (Renvela) 800 mg PO TID [facility] Physical Exam - Constitutional Appears: No Acute Distress, Chronically Ill - Head Exam Head Exam: ATRAUMATIC - Eye Exam Eye Exam: absent: Scleral icterus - ENT Exam ENT Exam: Mucous Membranes Dry, Normal External Ear Exam - Neck Exam Neck exam: Negative for: Lymphadenopathy - Respiratory Exam Respiratory Exam: Decreased Breath Sounds, Rhonchi - Cardiovascular Exam Cardiovascular Exam: REGULAR RHYTHM, +S1, +S2 - GI/Abdominal Exam GI & Abdominal Exam: Diminished Bowel Sounds, Soft. absent: Tenderness - Rectal Exam Rectal Exam: Deferred - Exam Exam: NORMAL INSPECTION - Extremities Exam Extremities exam: Positive for: pedal edema Additional comments: gangrene right great toe - Back Exam Back exam: absent: CVA tenderness (L), CVA tenderness (R), paraspinal tenderness - Neurological Exam Neurological exam: Alert, CN II-XII Intact, Reflexes Normal - Psychiatric Exam Psychiatric exam: Depressed - Skin Skin Exam: Dry Results - Vital Signs Recent Vital Signs: Last Vital Signs Temp 99.6 F 05/12/18 08:25 Pulse 78 05/12/18 08:25 Resp 20 05/12/18 08:25 BP 136/64 05/12/18 08:25 Pulse Ox 96 05/12/18 08:25 - Labs Result Diagrams: 05/12/18 06:39 05/12/18 06:39 Labs: Laboratory Results - last 24 hr 05/11/18 05/11/18 05/11/18 07:50 08:55 10:45 WBC RBC Hgb Hct MCV MCH MCHC RDW Plt Count MPV Neut % (Auto) Lymph % (Auto) [place] % (Auto) Eos % (Auto) Baso % (Auto) Neut # (Auto) Lymph # (Auto) [place] # (Auto) Eos # (Auto) Baso # (Auto) ESR pO2 25 L 24 L 19 L VBG pH 7.36 7.39 7.38 VBG pCO2 54 47 51 VBG HCO3 26.3 25.6 26.1 VBG Total CO2 32.2 H 29.9 H 31.8 H VBG O2 Sat (Calc) 43.4 44.7 32.4 L VBG Base Excess 3.7 H 2.8 H 3.9 H VBG Potassium 5.3 H 4.3 4.6 Sodium 140.0 140.0 137.0 Chloride 104.0 106.0 102.0 Glucose 177 H 152 H 144 H Lactate 3.6 H 3.3 H 2.2 H Potassium Carbon Dioxide Anion Gap BUN Creatinine Est GFR ( Amer) Est GFR (Non-Af Amer) POC Glucose (mg/dL) Random Glucose Calcium Total Bilirubin AST ALT Alkaline Phosphatase Total Creatine Kinase Total Protein Albumin Globulin Albumin/Globulin Ratio Venous Blood Potassium 5.3 H 4.3 4.6 05/11/18 05/11/18 05/11/18 19:20 19:56 19:56 WBC 12.8 H D RBC 3.41 L Hgb 11.4 D Hct 34.1 MCV 100.1 H D MCH 33.4 H MCHC 33.4 RDW 13.9 Plt Count 334 MPV 8.2 Neut % (Auto) 75.3 H Lymph % (Auto) 10.7 L [place] % (Auto) 12.0 H Eos % (Auto) 1.5 Baso % (Auto) 0.5 Neut # (Auto) 9.7 H Lymph # (Auto) 1.4 [place] # (Auto) 1.5 H Eos # (Auto) 0.2 Baso # (Auto) 0.1 ESR 120 H pO2 VBG pH VBG pCO2 VBG HCO3 VBG Total CO2 VBG O2 Sat (Calc) VBG Base Excess VBG Potassium Sodium 135 Chloride 94 L Glucose Lactate Potassium 6.1 H Carbon Dioxide 28 Anion Gap 19 BUN 47 H Creatinine 6.0 H Est GFR ( Amer) 8 Est GFR (Non-Af Amer) 7 POC Glucose (mg/dL) 211 H Random Glucose 196 H Calcium 9.0 Total Bilirubin 0.6 AST 27 ALT 29 Alkaline Phosphatase 176 H D Total Creatine Kinase 77 Total Protein 8.7 H Albumin 4.1 Globulin 4.5 H Albumin/Globulin Ratio 0.9 L Venous Blood Potassium 05/11/18 05/11/18 05/12/18 20:57 22:34 06:39 WBC 10.4 RBC 2.91 L Hgb 9.9 L Hct 29.1 L MCV 99.8 H MCH 33.8 H MCHC 33.9 RDW 13.7 Plt Count 273 MPV 8.1 Neut % (Auto) 70.8 Lymph % (Auto) 14.5 L [place] % (Auto) 12.5 H Eos % (Auto) 1.8 Baso % (Auto) 0.4 Neut # (Auto) 7.4 H Lymph # (Auto) 1.5 [place] # (Auto) 1.3 H Eos # (Auto) 0.2 Baso # (Auto) 0.0 ESR pO2 VBG pH VBG pCO2 VBG HCO3 VBG Total CO2 VBG O2 Sat (Calc) VBG Base Excess VBG Potassium Sodium Chloride Glucose Lactate Potassium 4.5 Carbon Dioxide Anion Gap BUN Creatinine Est GFR ( Amer) Est GFR (Non-Af Amer) POC Glucose (mg/dL) 150 H Random Glucose Calcium Total Bilirubin AST ALT Alkaline Phosphatase Total Creatine Kinase Total Protein Albumin Globulin Albumin/Globulin Ratio Venous Blood Potassium 05/12/18 05/12/18 05/12/18 06:39 06:42 11:15 WBC RBC Hgb Hct MCV MCH MCHC RDW Plt Count MPV Neut % (Auto) Lymph % (Auto) [place] % (Auto) Eos % (Auto) Baso % (Auto) Neut # (Auto) Lymph # (Auto) [place] # (Auto) Eos # (Auto) Baso # (Auto) ESR pO2 VBG pH VBG pCO2 VBG HCO3 VBG Total CO2 VBG O2 Sat (Calc) VBG Base Excess VBG Potassium Sodium 136 Chloride 97 L Glucose Lactate Potassium 4.8 Carbon Dioxide 30 Anion Gap 14 BUN 49 H Creatinine 6.4 H Est GFR ( Amer) 8 Est GFR (Non-Af Amer) 6 POC Glucose (mg/dL) 219 H 299 H Random Glucose 218 H Calcium 8.6 Total Bilirubin AST ALT Alkaline Phosphatase Total Creatine Kinase Total Protein Albumin Globulin Albumin/Globulin Ratio Venous Blood Potassium Assessment & Plan (1) Diabetic foot infection Status: Acute (2) Diabetic infection of right foot Status: Acute - Assessment and Plan (Free Text) Assessment: vascular on board for gangrene rightt foot IV rx ordered may need BKA
[2018-05-12] MEDS ORDERED: Dextrose 50% SYRINGE Inj (50 ml) IV PRN (11:55)
[2018-05-12] MEDS ORDERED: Glucagon Recombinant 1 mg Inj IM PRN (11:56)
--- NOTE | 2018-05-12 12:11 | CP.PCM.PN ---
Subjective - Date & Time of Evaluation Date of Evaluation: 05/12/18 Time of Evaluation: 08:10 - Subjective Subjective: Patient examined at bedside. No acute events overnight. Patient reports right foot feels cool. Denies pain in lower extremities. Denies chest pain, SOB, nausea, diarrhea. Objective - Vital Signs/Intake and Output Vital Signs (last 24 hours): Temp Pulse Resp BP Pulse Ox 99.6 F 78 20 136/64 96 05/12/18 08:25 05/12/18 08:25 05/12/18 08:25 05/12/18 08:25 05/12/18 08:25 Intake and Output: 05/12/18 05/12/18 06:59 18:59 Intake Total 240 Balance 240 - Medications Medications: Current Medications Carvedilol (Coreg) 3.125 mg PO BID [facility] Dextrose (Dextrose 50% Inj) 0 ml IV STAT PRN; Protocol PRN Reason: Hypoglycemia Protocol Dextrose (Glutose 15) 0 gm PO ONCE PRN; Protocol PRN Reason: Hypoglycemia Protocol Epoetin Etienne (Procrit) 4,000 unit IV TTS [facility] Glucagon (Glucagen Diagnostic Kit) 0 mg IM STAT PRN; Protocol PRN Reason: Hypoglycemia Protocol Cefepime HCl 1 gm/ Dextrose 50 mls @ 100 mls/hr IVPB Q12H [facility]; Protocol Last Admin: 05/12/18 08:33 Dose: 100 mls/hr Dextrose (Dextrose 5% In Water 1000 Ml) 1,000 mls @ 0 mls/hr IV .Q0M PRN; Protocol PRN Reason: Hypoglycemia Protocol Sodium Chloride (Sodium Chloride 0.9% Addvantage) 250 mls @ 166.7 mls/hr IV MWF [facility]; Protocol Insulin Human Regular (Novolin R) 0 unit SC ACHS [facility]; Protocol Losartan Potassium (Cozaar) 100 mg PO QPM [facility] Sevelamer Carbonate (Renvela) 800 mg PO T[facility]CC [facility] Vitamin B Complex/Vit C/Folic Acid (Nephro-Naren) 1 tab PO 0800 [facility] - Labs Labs: 05/12/18 06:39 05/12/18 06:39 - Constitutional Appears: Non-toxic, No Acute Distress - Head Exam Head Exam: ATRAUMATIC, NORMAL INSPECTION, NORMOCEPHALIC - Eye Exam Eye Exam: EOMI, Normal appearance - ENT Exam ENT Exam: Mucous Membranes Moist, Normal Exam - Respiratory Exam Respiratory Exam: NORMAL BREATHING PATTERN. absent: Respiratory Distress - Cardiovascular Exam Cardiovascular Exam: REGULAR RHYTHM - GI/Abdominal Exam GI & Abdominal Exam: Soft, Normal Bowel Sounds - Extremities Exam Extremities Exam: absent: Calf Tenderness, Pedal Edema Additional comments: right LE wrapped, clean/dry/intact - Neurological Exam Neurological Exam: Alert, Awake - Psychiatric Exam Psychiatric exam: Normal Affect, Normal Mood - Skin Skin Exam: Dry, Warm Assessment and Plan - Assessment and Plan (Free Text) Assessment: 68 year old female admitted with gangrenous great right toe 2/2 vascular disease Plan: -IV antibiotics -f/u CT abdomen with ileofemoral runoff -f/u TERESA/PVRs -medical management per primary Will discuss with Dr. Heather Bautista, PGY-1
[2018-05-12] MEDS: (Novolin R) Insulin Human Regular 100 units/ml vial SC SCH ×3 (12:30→21:14)
[2018-05-12] MEDS ORDERED: Iodixanol 320 mg/ml 150 ml Bottle IV ONE (12:59)
--- NOTE | 2018-05-12 14:28 | RAD ---
PROCEDURE: Radiographs of the right great toe. TECHNIQUE:: AP radiograph of the right foot, with oblique and lateral view of the right great toe. COMPARISON: Right foot radiographs performed 05/11/18 FINDINGS: Two views. BONES: Osseous demineralization. Degenerative changes. That is post amputation of the 5th digit at the level of the distal 5th metatarsal. JOINTS: No dislocation. SOFT TISSUES: Soft tissue swelling. Soft tissue laceration/ulceration at the distal 1st phalanx. No evidence of radiopaque foreign body. Vascular calcifications. OTHER FINDINGS: None. IMPRESSION: Soft tissue swelling. Soft tissue laceration/ulceration of the distal 1st phalanx without evidence of associated osseous destruction. Please note MRI without and with IV contrast most sensitive for detection of acute osteomyelitis.
--- NOTE | 2018-05-12 15:58 | CP.PCM.CON ---
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 Will plan for dialysis tomorrow. Continue with Nephrovite 1 tab/day. pt had severe allergic reaction to polysulphone dialyzers (cardiac arrest) in past, hence uses only [place] Exeltra. PRBC as needed for anemia. on [place] with dialysis as last Hb 9.9 Continue with phos binders, last phos level: check Continue with calcitriol. BP control with meds as ordered. Patient on RAAS kam as losartan Glycemic control, Dialysis consistent diet Further work up/management as per primary team Dose meds/antibiotics (if needed) for ESRD status. Avoid fleets enema/magnesium based laxatives. Thanks for allowing me to participate in care of your patient. Will follow patient with you. Please call if any Qs Dr Juan Torres Office: [phone] Chief Complaint;RT toe wound HPI: Pt is a 68 F with hx of ESRD on hemodialysis (TTS) via AVF @ [facility], last dialysis Sat, chronic anemia, hyperphosphatemia, secondary hyperparathyroidism, Diabetes Mellitus, hypertension, CHF, PVD, obesity presented with complaints of Rt foot great toe infection and wound. pt is being seen by vascular as well Renal consult requested for ESRD management. pt denies any other complaints at this time ROS: Cardiovascular: No chest pain. Pulmonary: No shortness of breath Gastrointestinal: denies abdominal pain No nausea. No vomiting. Genitourinary: No pain while urinating. Denies blood in urine. All other negative except as mentioned in HPI Physical Examination: General Appearance: Comfortable, in no acute respiratory distress, co-operative . Vitals reviewed and noted as below Head; Atraumatic, normocephalic ENT: no ulcers no thrush. Tongue is midline. Oropharynx: no rash or ulcers. EYES: Pupils are equal, round and reactive to light accommodation. Eye muscles and extraocular movement intact. Sclera is anicteric. Neck; supple no lymphadenopathy, no thyromegaly or bruit Lungs: Normal respiratory rate/effort. Breath sounds bilateral equal and clear Heart: Normal rate. s1s2 normal. No rub or gallop. Extremities: pedal edema +. No varicose veins. Rt foot in dressing Neurological: Patient is alert, awake and oriented to person, place and time. No focal deficit. Strength bilateral appropriate and equal Skin: Warm and dry. Normal turgor. No rash. Palpitation: Normal elasticity for age Abdomen: Abdomen is soft. Bowel sounds +. There is no abdominal tenderness, no guarding/rigidity or organomegaly Psych: normal insight and normal affect/mood MSK: no joint tenderness or swelling. Digits and nails normal, no deformity : kidney or bladder not palpable Access: AVF Labs/imaging reviewed. Past medical history, past surgical history, family history, social history, allergy reviewed and noted as below Family Hx: no hx of CKD. Non contributory Past Patient History - Infectious Disease Hx of Infectious Diseases: None - Past Medical History & Family History Past Medical History?: Yes - Past Social History Smoking Status: Never Smoked - CARDIAC Hx Cardiac Disorders: Yes Hx Congestive Heart Failure: Yes ("CHRONIC") Hx Hypercholesterolemia: Yes Hx Hypertension: Yes Other/Comment: With LifeVest - PULMONARY Hx Respiratory Disorders: No - NEUROLOGICAL Hx Neurological Disorder: Yes Hx Dementia: Yes - HEENT Hx HEENT Problems: No - RENAL Hx Chronic Kidney Disease: Yes Hx Dialysis: Yes Type of Dialysis Access: left arm AVS, T-Th-S Date of Last Dialysis Treatment: 05/10/18 - ENDOCRINE/METABOLIC Hx Endocrine Disorders: Yes Hx Diabetes Mellitus Type 2: Yes - HEMATOLOGICAL/ONCOLOGICAL Hx Blood Disorders: No - INTEGUMENTARY Hx Dermatological Problems: Yes Other/Comment: HX:pt. w/ diabetic ulcer-left heel, right big toe necrosis - MUSCULOSKELETAL/RHEUMATOLOGICAL Hx Musculoskeletal Disorders: Yes Hx Falls: Yes Hx Osteomyelitis: Yes - GASTROINTESTINAL Hx Gastrointestinal Disorders: No - GENITOURINARY/GYNECOLOGICAL Hx Genitourinary Disorders: Yes Hx Incontinence: Yes - PSYCHIATRIC Hx Psychophysiologic Disorder: No Hx Substance Use: No - SURGICAL HISTORY Hx Surgeries: Yes Hx Amputation: Yes (bilateral 5th toe) Hx Angiogram: Yes Hx Angioplasty: Yes (02/10/14) Hx Arteriovenous Shunt: Yes (LEFT ARM) - ANESTHESIA Hx Anesthesia: Yes Hx Anesthesia Reactions: No Hx Malignant Hyperthermia: No Meds Allergies/Adverse Reactions: Allergies Allergy/AdvReac Type Severity Reaction Status Date / Time No Known Allergies Allergy Verified 03/20/14 15:10 - Medications Medications: Current Medications Carvedilol (Coreg) 3.125 mg PO BID [facility] Dextrose (Dextrose 50% Inj) 0 ml IV STAT PRN; Protocol PRN Reason: Hypoglycemia Protocol Dextrose (Glutose 15) 0 gm PO ONCE PRN; Protocol PRN Reason: Hypoglycemia Protocol Epoetin Etienne (Procrit) 4,000 unit IV TTS [facility] Glucagon (Glucagen Diagnostic Kit) 0 mg IM STAT PRN; Protocol PRN Reason: Hypoglycemia Protocol Cefepime HCl 1 gm/ Dextrose 50 mls @ 100 mls/hr IVPB Q12H [facility]; Protocol Last Admin: 05/12/18 08:33 Dose: 100 mls/hr Dextrose (Dextrose 5% In Water 1000 Ml) 1,000 mls @ 0 mls/hr IV .Q0M PRN; Protocol PRN Reason: Hypoglycemia Protocol Sodium Chloride (Sodium Chloride 0.9% Addvantage) 250 mls @ 166.7 mls/hr IV MWF [facility]; Protocol Insulin Human Regular (Novolin R) 0 unit SC ACHS [facility]; Protocol Last Admin: 05/12/18 12:30 Dose: 3 units Losartan Potassium (Cozaar) 100 mg PO QPM [facility] Sevelamer Carbonate (Renvela) 800 mg PO TIDCC [facility] Last Admin: 05/12/18 12:32 Dose: 800 mg Vitamin B Complex/Vit C/Folic Acid (Nephro-Naren) 1 tab PO 0800 [facility] Results - Vital Signs Recent Vital Signs: Last Vital Signs Temp 99.6 F 05/12/18 08:25 Pulse 78 05/12/18 08:25 Resp 20 05/12/18 08:25 BP 136/64 05/12/18 08:25 Pulse Ox 96 05/12/18 08:25 - Labs Result Diagrams: 05/12/18 06:39 05/12/18 06:39 Labs: Laboratory Results - last 24 hr 05/11/18 05/11/18 05/11/18 07:50 08:55 10:45 WBC RBC Hgb Hct MCV MCH MCHC RDW Plt Count MPV Neut % (Auto) Lymph % (Auto) [place] % (Auto) Eos % (Auto) Baso % (Auto) Neut # (Auto) Lymph # (Auto) [place] # (Auto) Eos # (Auto) Baso # (Auto) ESR pO2 25 L 24 L 19 L VBG pH 7.36 7.39 7.38 VBG pCO2 54 47 51 VBG HCO3 26.3 25.6 26.1 VBG Total CO2 32.2 H 29.9 H 31.8 H VBG O2 Sat (Calc) 43.4 44.7 32.4 L VBG Base Excess 3.7 H 2.8 H 3.9 H VBG Potassium 5.3 H 4.3 4.6 Sodium 140.0 140.0 137.0 Chloride 104.0 106.0 102.0 Glucose 177 H 152 H 144 H Lactate 3.6 H 3.3 H 2.2 H Potassium Carbon Dioxide Anion Gap BUN Creatinine Est GFR ( Amer) Est GFR (Non-Af Amer) POC Glucose (mg/dL) Random Glucose Hemoglobin A1c Calcium Phosphorus Total Bilirubin AST ALT Alkaline Phosphatase Total Creatine Kinase Total Protein Albumin Globulin Albumin/Globulin Ratio Venous Blood Potassium 5.3 H 4.3 4.6 05/11/18 05/11/18 05/11/18 19:20 19:56 19:56 WBC 12.8 H D RBC 3.41 L Hgb 11.4 D Hct 34.1 MCV 100.1 H D MCH 33.4 H MCHC 33.4 RDW 13.9 Plt Count 334 MPV 8.2 Neut % (Auto) 75.3 H Lymph % (Auto) 10.7 L [place] % (Auto) 12.0 H Eos % (Auto) 1.5 Baso % (Auto) 0.5 Neut # (Auto) 9.7 H Lymph # (Auto) 1.4 [place] # (Auto) 1.5 H Eos # (Auto) 0.2 Baso # (Auto) 0.1 ESR 120 H pO2 VBG pH VBG pCO2 VBG HCO3 VBG Total CO2 VBG O2 Sat (Calc) VBG Base Excess VBG Potassium Sodium 135 Chloride 94 L Glucose Lactate Potassium 6.1 H Carbon Dioxide 28 Anion Gap 19 BUN 47 H Creatinine 6.0 H Est GFR ( Amer) 8 Est GFR (Non-Af Amer) 7 POC Glucose (mg/dL) 211 H Random Glucose 196 H Hemoglobin A1c Calcium 9.0 Phosphorus Total Bilirubin 0.6 AST 27 ALT 29 Alkaline Phosphatase 176 H D Total Creatine Kinase 77 Total Protein 8.7 H Albumin 4.1 Globulin 4.5 H Albumin/Globulin Ratio 0.9 L Venous Blood Potassium 05/11/18 05/11/18 05/12/18 20:57 22:34 06:39 WBC 10.4 RBC 2.91 L Hgb 9.9 L Hct 29.1 L MCV 99.8 H MCH 33.8 H MCHC 33.9 RDW 13.7 Plt Count 273 MPV 8.1 Neut % (Auto) 70.8 Lymph % (Auto) 14.5 L [place] % (Auto) 12.5 H Eos % (Auto) 1.8 Baso % (Auto) 0.4 Neut # (Auto) 7.4 H Lymph # (Auto) 1.5 [place] # (Auto) 1.3 H Eos # (Auto) 0.2 Baso # (Auto) 0.0 ESR pO2 VBG pH VBG pCO2 VBG HCO3 VBG Total CO2 VBG O2 Sat (Calc) VBG Base Excess VBG Potassium Sodium Chloride Glucose Lactate Potassium 4.5 Carbon Dioxide Anion Gap BUN Creatinine Est GFR ( Amer) Est GFR (Non-Af Amer) POC Glucose (mg/dL) 150 H Random Glucose Hemoglobin A1c Calcium Phosphorus Total Bilirubin AST ALT Alkaline Phosphatase Total Creatine Kinase Total Protein Albumin Globulin Albumin/Globulin Ratio Venous Blood Potassium 05/12/18 05/12/18 05/12/18 06:39 06:42 11:15 WBC RBC Hgb Hct MCV MCH MCHC RDW Plt Count MPV Neut % (Auto) Lymph % (Auto) [place] % (Auto) Eos % (Auto) Baso % (Auto) Neut # (Auto) Lymph # (Auto) [place] # (Auto) Eos # (Auto) Baso # (Auto) ESR pO2 VBG pH VBG pCO2 VBG HCO3 VBG Total CO2 VBG O2 Sat (Calc) VBG Base Excess VBG Potassium Sodium 136 Chloride 97 L Glucose Lactate Potassium 4.8 Carbon Dioxide 30 Anion Gap 14 BUN 49 H Creatinine 6.4 H Est GFR ( Amer) 8 Est GFR (Non-Af Amer) 6 POC Glucose (mg/dL) 219 H 299 H Random Glucose 218 H Hemoglobin A1c Calcium 8.6 Phosphorus 3.0 Total Bilirubin AST ALT Alkaline Phosphatase Total Creatine Kinase Total Protein Albumin Globulin Albumin/Globulin Ratio Venous Blood Potassium 05/12/18 13:30 WBC RBC Hgb Hct MCV MCH MCHC RDW Plt Count MPV Neut % (Auto) Lymph % (Auto) [place] % (Auto) Eos % (Auto) Baso % (Auto) Neut # (Auto) Lymph # (Auto) [place] # (Auto) Eos # (Auto) Baso # (Auto) ESR pO2 VBG pH VBG pCO2 VBG HCO3 VBG Total CO2 VBG O2 Sat (Calc) VBG Base Excess VBG Potassium Sodium Chloride Glucose Lactate Potassium Carbon Dioxide Anion Gap BUN Creatinine Est GFR ( Amer) Est GFR (Non-Af Amer) POC Glucose (mg/dL) Random Glucose Hemoglobin A1c 6.7 H D Calcium Phosphorus Total Bilirubin AST ALT Alkaline Phosphatase Total Creatine Kinase Total Protein Albumin Globulin Albumin/Globulin Ratio Venous Blood Potassium
--- NOTE | 2018-05-12 21:40 | CARD ---
APPROVED REPORT Date of service: 05/11/2018 EKG Measurement Heart [id number] <Conclusion> Normal sinus rhythm Right bundle branch block Left anterior fascicular block Bifascicular block Abnormal ECG
--- NOTE | 2018-05-12 23:06 | CP.PCM.CON ---
Past Patient History - Infectious Disease Hx of Infectious Diseases: None - Past Medical History & Family History Past Medical History?: Yes - Past Social History Smoking Status: Never Smoked - CARDIAC Hx Cardiac Disorders: Yes Hx Congestive Heart Failure: Yes ("CHRONIC") Hx Hypercholesterolemia: Yes Hx Hypertension: Yes Other/Comment: With LifeVest - PULMONARY Hx Respiratory Disorders: No - NEUROLOGICAL Hx Neurological Disorder: Yes Hx Dementia: Yes - HEENT Hx HEENT Problems: No - RENAL Hx Chronic Kidney Disease: Yes Hx Dialysis: Yes Type of Dialysis Access: left arm AVS, T-Th-S Date of Last Dialysis Treatment: 05/10/18 - ENDOCRINE/METABOLIC Hx Endocrine Disorders: Yes Hx Diabetes Mellitus Type 2: Yes - HEMATOLOGICAL/ONCOLOGICAL Hx Blood Disorders: No - INTEGUMENTARY Hx Dermatological Problems: Yes Other/Comment: HX:pt. w/ diabetic ulcer-left heel, right big toe necrosis - MUSCULOSKELETAL/RHEUMATOLOGICAL Hx Musculoskeletal Disorders: Yes Hx Falls: Yes Hx Osteomyelitis: Yes - GASTROINTESTINAL Hx Gastrointestinal Disorders: No - GENITOURINARY/GYNECOLOGICAL Hx Genitourinary Disorders: Yes Hx Incontinence: Yes - PSYCHIATRIC Hx Psychophysiologic Disorder: No Hx Substance Use: No - SURGICAL HISTORY Hx Surgeries: Yes Hx Amputation: Yes (bilateral 5th toe) Hx Angiogram: Yes Hx Angioplasty: Yes (02/10/14) Hx Arteriovenous Shunt: Yes (LEFT ARM) - ANESTHESIA Hx Anesthesia: Yes Hx Anesthesia Reactions: No Hx Malignant Hyperthermia: No Meds Allergies/Adverse Reactions: Allergies Allergy/AdvReac Type Severity Reaction Status Date / Time No Known Allergies Allergy Verified 03/20/14 15:10 - Medications Medications: Current Medications Carvedilol (Coreg) 3.125 mg PO BID [facility] Last Admin: 05/12/18 17:42 Dose: 3.125 mg Dextrose (Dextrose 50% Inj) 0 ml IV STAT PRN; Protocol PRN Reason: Hypoglycemia Protocol Dextrose (Glutose 15) 0 gm PO ONCE PRN; Protocol PRN Reason: Hypoglycemia Protocol Epoetin Etienne (Procrit) 4,000 unit IV TTS [facility] Glucagon (Glucagen Diagnostic Kit) 0 mg IM STAT PRN; Protocol PRN Reason: Hypoglycemia Protocol Cefepime HCl 1 gm/ Dextrose 50 mls @ 100 mls/hr IVPB Q12H [facility]; Protocol Last Admin: 05/12/18 21:32 Dose: 100 mls/hr Dextrose (Dextrose 5% In Water 1000 Ml) 1,000 mls @ 0 mls/hr IV .Q0M PRN; Protocol PRN Reason: Hypoglycemia Protocol Sodium Chloride (Sodium Chloride 0.9% Addvantage) 250 mls @ 166.7 mls/hr IV MWF [facility]; Protocol Insulin Human Regular (Novolin R) 0 unit SC ACHS [facility]; Protocol Last Admin: 05/12/18 21:14 Dose: Not Given Losartan Potassium (Cozaar) 100 mg PO QPM [facility] Last Admin: 05/12/18 17:42 Dose: 100 mg Sevelamer Carbonate (Renvela) 800 mg PO TIDCC [facility] Last Admin: 05/12/18 17:42 Dose: 800 mg Vitamin B Complex/Vit C/Folic Acid (Nephro-Naren) 1 tab PO 0800 [facility] Results - Vital Signs Recent Vital Signs: Last Vital Signs Temp 98.7 F 05/12/18 15:00 Pulse 77 05/12/18 15:00 Resp 20 05/12/18 15:00 BP 124/72 05/12/18 15:00 Pulse Ox 97 05/12/18 15:00 - Labs Result Diagrams: 05/12/18 06:39 05/12/18 06:39 Labs: Laboratory Results - last 24 hr 05/11/18 05/12/18 05/12/18 22:34 06:39 06:39 WBC 10.4 RBC 2.91 L Hgb 9.9 L Hct 29.1 L MCV 99.8 H MCH 33.8 H MCHC 33.9 RDW 13.7 Plt Count 273 MPV 8.1 Neut % (Auto) 70.8 Lymph % (Auto) 14.5 L [place] % (Auto) 12.5 H Eos % (Auto) 1.8 Baso % (Auto) 0.4 Neut # (Auto) 7.4 H Lymph # (Auto) 1.5 [place] # (Auto) 1.3 H Eos # (Auto) 0.2 Baso # (Auto) 0.0 Sodium 136 Potassium 4.8 Chloride 97 L Carbon Dioxide 30 Anion Gap 14 BUN 49 H Creatinine 6.4 H Est GFR ( Amer) 8 Est GFR (Non-Af Amer) 6 POC Glucose (mg/dL) 150 H Random Glucose 218 H Hemoglobin A1c Calcium 8.6 Phosphorus 3.0 05/12/18 05/12/18 05/12/18 06:42 11:15 13:30 WBC RBC Hgb Hct MCV MCH MCHC RDW Plt Count MPV Neut % (Auto) Lymph % (Auto) [place] % (Auto) Eos % (Auto) Baso % (Auto) Neut # (Auto) Lymph # (Auto) [place] # (Auto) Eos # (Auto) Baso # (Auto) Sodium Potassium Chloride Carbon Dioxide Anion Gap BUN Creatinine Est GFR ( Amer) Est GFR (Non-Af Amer) POC Glucose (mg/dL) 219 H 299 H Random Glucose Hemoglobin A1c 6.7 H D Calcium Phosphorus 05/12/18 05/12/18 16:43 20:44 WBC RBC Hgb Hct MCV MCH MCHC RDW Plt Count MPV Neut % (Auto) Lymph % (Auto) [place] % (Auto) Eos % (Auto) Baso % (Auto) Neut # (Auto) Lymph # (Auto) [place] # (Auto) Eos # (Auto) Baso # (Auto) Sodium Potassium Chloride Carbon Dioxide Anion Gap BUN Creatinine Est GFR ( Amer) Est GFR (Non-Af Amer) POC Glucose (mg/dL) 231 H 145 H Random Glucose Hemoglobin A1c Calcium Phosphorus
[2018-05-13] MEDS: (Novolin R) Insulin Human Regular 100 units/ml vial SC SCH ×4 (07:49→22:01)
[2018-05-13 07:58] LABS: BASO % 0.4 % (0.0-2.0); EOS # 0.2 K/uL (0.0-0.7); EOS % 2.4 % (0.0-4.0); HEMOGLOBIN 9.5 g/dL (11.0-16.0); LYMPH # 1.3 K/uL (1.0-4.3); LYMPH % 12.2 % (20.0-40.0); MEAN CELL VOLUME 99.1 fL (81.0-99.0); MEAN CORPUSCULAR HEMOGLOBIN 33.6 pg (27.0-31.0); MEAN CORPUSCULAR HGB CONC 33.9 g/dL (33.0-37.0); MEAN PLATELET VOLUME 7.9 fL (7.2-11.7); MONO # 1.3 K/uL (0.0-0.8); MONO % 12.2 % (0.0-10.0); NEUT # 7.7 K/uL (1.8-7.0); NEUT % 72.8 % (50.0-75.0); RBC 2.83 Mil/uL (3.80-5.20); RED CELL DISTRIBUTION WIDTH 13.7 % (11.5-14.5); WHITE BLOOD COUNT 10.5 K/uL (4.8-10.8)
[2018-05-13 08:02] LABS: INR 1.2; PROTHROMBIN TIME 12.6 SECONDS (9.7-12.2)
[2018-05-13] MEDS: Multivitamin Vitamin B Complex (Nephro-Vite) Tab PO SCH (08:07)
[2018-05-13 08:30] LABS: ALB/GLOB RATIO 0.8 (1.0-2.1); ALBUMIN 3.1 g/dL (3.5-5.0); CALCIUM 8.8 mg/dl (8.6-10.4)
--- NOTE | 2018-05-13 11:10 | CP.PCM.PN ---
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 Continue with Nephrovite 1 tab/day. pt had severe allergic reaction to polysulphone dialyzers (cardiac arrest) in past, hence uses only [place] Exeltra. PRBC as needed for anemia. on [place] with dialysis as last Hb 9.5 Continue with phos binders, last phos level: 3 Continue with calcitriol. BP control with meds as ordered. Patient on RAAS kam as losartan Glycemic control, Dialysis consistent diet Further work up/management as per primary team Dose meds/antibiotics (if needed) for ESRD status. Avoid fleets enema/magnesium based laxatives. Thanks for allowing me to participate in care of your patient. Will follow patient with you. Please call if any Qs. had d/w team Dr Juan Torres Office: [phone] Chief Complaint;RT toe wound HPI: Pt is a 68 F with hx of ESRD on hemodialysis (TTS) via AVF @ [facility], last dialysis Sat, chronic anemia, hyperphosphatemia, secondary hyperparathyroidism, Diabetes Mellitus, hypertension, CHF, PVD, obesity presented with complaints of Rt foot great toe infection and wound. pt is being seen by vascular as well Renal consult requested for ESRD management. pt denies any other complaints at this time ROS: Cardiovascular: No chest pain. Pulmonary: No shortness of breath Gastrointestinal: denies abdominal pain No nausea. No vomiting. Genitourinary: No pain while urinating. Denies blood in urine. All other negative except as mentioned in HPI Physical Examination: seen during HD General Appearance: Comfortable, in no acute respiratory distress, co-operative . Vitals reviewed and noted as below Head; Atraumatic, normocephalic ENT: no ulcers no thrush. Tongue is midline. Oropharynx: no rash or ulcers. EYES: Pupils are equal, round and reactive to light accommodation. Eye muscles and extraocular movement intact. Sclera is anicteric. Neck; supple no lymphadenopathy, no thyromegaly or bruit Lungs: Normal respiratory rate/effort. Breath sounds bilateral equal and clear Heart: Normal rate. s1s2 normal. No rub or gallop. Extremities: pedal edema +. No varicose veins. Rt foot in dressing Neurological: Patient is alert, awake and oriented to person, place and time. No focal deficit. Strength bilateral appropriate and equal Skin: Warm and dry. Normal turgor. No rash. Palpitation: Normal elasticity for age Abdomen: Abdomen is soft. Bowel sounds +. There is no abdominal tenderness, no guarding/rigidity or organomegaly Psych: normal insight and normal affect/mood MSK: no joint tenderness or swelling. Digits and nails normal, no deformity : kidney or bladder not palpable Access: AVF Labs/imaging reviewed. Past medical history, past surgical history, family history, social history, allergy reviewed and noted as below Family Hx: no hx of CKD. Non contributory Objective - Vital Signs/Intake and Output Vital Signs (last 24 hours): Temp Pulse Resp BP Pulse Ox 97.7 F 64 16 137/66 97 05/13/18 10:55 05/13/18 10:55 05/13/18 10:55 05/13/18 10:55 05/13/18 07:00 Intake and Output: 05/13/18 05/13/18 06:59 18:59 Intake Total 400 Output Total 0 Balance 400 - Medications Medications: Current Medications Carvedilol (Coreg) 3.125 mg PO BID [facility] Last Admin: 05/13/18 10:20 Dose: Not Given Dextrose (Dextrose 50% Inj) 0 ml IV STAT PRN; Protocol PRN Reason: Hypoglycemia Protocol Dextrose (Glutose 15) 0 gm PO ONCE PRN; Protocol PRN Reason: Hypoglycemia Protocol Epoetin Etienne (Procrit) 4,000 unit IV TTS [facility] Glucagon (Glucagen Diagnostic Kit) 0 mg IM STAT PRN; Protocol PRN Reason: Hypoglycemia Protocol Cefepime HCl 1 gm/ Dextrose 50 mls @ 100 mls/hr IVPB Q12H [facility]; Protocol Last Admin: 05/13/18 08:07 Dose: 100 mls/hr Dextrose (Dextrose 5% In Water 1000 Ml) 1,000 mls @ 0 mls/hr IV .Q0M PRN; Protocol PRN Reason: Hypoglycemia Protocol Sodium Chloride (Sodium Chloride 0.9% Addvantage) 250 mls @ 166.7 mls/hr IV MWF [facility]; Protocol Insulin Human Regular (Novolin R) 0 unit SC ACHS [facility]; Protocol Last Admin: 05/13/18 07:49 Dose: Not Given Losartan Potassium (Cozaar) 100 mg PO QPM [facility] Last Admin: 05/12/18 17:42 Dose: 100 mg Sevelamer Carbonate (Renvela) 800 mg PO TIDCC [facility] Last Admin: 05/13/18 08:07 Dose: 800 mg Vitamin B Complex/Vit C/Folic Acid (Nephro-Naren) 1 tab PO 0800 [facility] Last Admin: 05/13/18 08:07 Dose: 1 tab - Labs Labs: 05/13/18 07:46 05/13/18 07:46 PT 12.6 SECONDS (9.7-12.2) H 05/13/18 07:46 INR 1.2 05/13/18 07:46 APTT 34 SECONDS (21-34) 05/13/18 07:46
[2018-05-13] MEDS: EPOETIN ALFA 4,000 UNIT/ML ML Dialysis IV SCH (12:20)
--- NOTE | 2018-05-13 12:33 | CP.PCM.PN ---
Subjective - Date & Time of Evaluation Date of Evaluation: 05/13/18 Time of Evaluation: 09:00 - Subjective Subjective: seen by consultants iv rx renewed Objective - Vital Signs/Intake and Output Vital Signs (last 24 hours): Temp Pulse Resp BP Pulse Ox 97.7 F 64 16 135/75 96 05/13/18 10:55 05/13/18 10:55 05/13/18 10:55 05/13/18 11:45 05/13/18 10:30 Intake and Output: 05/13/18 05/13/18 06:59 18:59 Intake Total 400 Output Total 0 Balance 400 - Medications Medications: Current Medications Carvedilol (Coreg) 3.125 mg PO BID [facility] Last Admin: 05/13/18 10:20 Dose: Not Given Dextrose (Dextrose 50% Inj) 0 ml IV STAT PRN; Protocol PRN Reason: Hypoglycemia Protocol Dextrose (Glutose 15) 0 gm PO ONCE PRN; Protocol PRN Reason: Hypoglycemia Protocol Epoetin Etienne (Procrit) 4,000 unit IV TTS [facility] Last Admin: 05/13/18 12:20 Dose: 4,000 unit Glucagon (Glucagen Diagnostic Kit) 0 mg IM STAT PRN; Protocol PRN Reason: Hypoglycemia Protocol Cefepime HCl 1 gm/ Dextrose 50 mls @ 100 mls/hr IVPB Q12H [facility]; Protocol Last Admin: 05/13/18 08:07 Dose: 100 mls/hr Dextrose (Dextrose 5% In Water 1000 Ml) 1,000 mls @ 0 mls/hr IV .Q0M PRN; Protocol PRN Reason: Hypoglycemia Protocol Sodium Chloride (Sodium Chloride 0.9% Addvantage) 250 mls @ 166.7 mls/hr IV MWF [facility]; Protocol Insulin Human Regular (Novolin R) 0 unit SC ACHS [facility]; Protocol Last Admin: 05/13/18 07:49 Dose: Not Given Losartan Potassium (Cozaar) 100 mg PO QPM [facility] Last Admin: 05/12/18 17:42 Dose: 100 mg Sevelamer Carbonate (Renvela) 800 mg PO TIDCC [facility] Last Admin: 05/13/18 08:07 Dose: 800 mg Vitamin B Complex/Vit C/Folic Acid (Nephro-Naren) 1 tab PO 0800 [facility] Last Admin: 05/13/18 08:07 Dose: 1 tab - Labs Labs: 05/13/18 07:46 05/13/18 07:46 PT 12.6 SECONDS (9.7-12.2) H 05/13/18 07:46 INR 1.2 05/13/18 07:46 APTT 34 SECONDS (21-34) 05/13/18 07:46 - Constitutional Appears: Chronically Ill - Head Exam Head Exam: NORMOCEPHALIC - Eye Exam Eye Exam: absent: Scleral icterus - ENT Exam ENT Exam: Mucous Membranes Dry - Neck Exam Neck Exam: absent: Lymphadenopathy - Respiratory Exam Respiratory Exam: Decreased Breath Sounds - Cardiovascular Exam Cardiovascular Exam: REGULAR RHYTHM - GI/Abdominal Exam GI & Abdominal Exam: Distended - Rectal Exam Rectal Exam: Deferred - Exam Exam: NORMAL INSPECTION Assessment and Plan (1) Diabetic foot infection Status: Acute (2) Diabetic infection of right foot Status: Acute
[2018-05-13] MEDS ORDERED: Vancomycin 1 gm/NS 200 ml 1 GM/200 ML BAG IVPB ONE (13:00)
--- NOTE | 2018-05-13 13:06 | CP.PCM.PN ---
Subjective - Date & Time of Evaluation Date of Evaluation: 05/13/18 Time of Evaluation: 13:00 - Subjective Subjective: Progress note. Attending: Dr. Denis Pt seen and examined at bedside. No acute distress. No events overnight. Getting dialysis today. No fevers, chills, vomiting, diarrhea. Objective - Vital Signs/Intake and Output Vital Signs (last 24 hours): Temp Pulse Resp BP Pulse Ox 97.7 F 64 16 135/75 96 05/13/18 10:55 05/13/18 10:55 05/13/18 10:55 05/13/18 11:45 05/13/18 10:30 Intake and Output: 05/13/18 05/13/18 06:59 18:59 Intake Total 400 Output Total 0 Balance 400 - Medications Medications: Current Medications Carvedilol (Coreg) 3.125 mg PO BID [facility] Last Admin: 05/13/18 10:20 Dose: Not Given Dextrose (Dextrose 50% Inj) 0 ml IV STAT PRN; Protocol PRN Reason: Hypoglycemia Protocol Dextrose (Glutose 15) 0 gm PO ONCE PRN; Protocol PRN Reason: Hypoglycemia Protocol Epoetin Etienne (Procrit) 4,000 unit IV TTS [facility] Last Admin: 05/13/18 12:20 Dose: 4,000 unit Glucagon (Glucagen Diagnostic Kit) 0 mg IM STAT PRN; Protocol PRN Reason: Hypoglycemia Protocol Cefepime HCl 1 gm/ Dextrose 50 mls @ 100 mls/hr IVPB Q12H [facility]; Protocol Last Admin: 05/13/18 08:07 Dose: 100 mls/hr Dextrose (Dextrose 5% In Water 1000 Ml) 1,000 mls @ 0 mls/hr IV .Q0M PRN; Protocol PRN Reason: Hypoglycemia Protocol Sodium Chloride (Sodium Chloride 0.9% Addvantage) 250 mls @ 166.7 mls/hr IV MWF [facility]; Protocol Vancomycin/Sodium Chloride (Vancomycin 1 Gm/Ns 200 Ml) 1 gm in 200 mls @ 133.333 mls/hr IVPB ONCE ONE; Protocol Stop: 05/13/18 14:29 Metronidazole 250 mg/ (Miscellaneous) 50 mls @ 100 mls/hr IVPB Q8H [facility]; Protocol Insulin Human Regular (Novolin R) 0 unit SC ACHS [facility]; Protocol Last Admin: 11/06/18 07:49 Dose: Not Given Losartan Potassium (Cozaar) 100 mg PO QPM [facility] Last Admin: 05/12/18 17:42 Dose: 100 mg Sevelamer Carbonate (Renvela) 800 mg PO TIDCC [facility] Last Admin: 05/13/18 08:07 Dose: 800 mg Vitamin B Complex/Vit C/Folic Acid (Nephro-Uday) 1 tab PO 0800 [facility] Last Admin: 05/13/18 08:07 Dose: 1 tab - Labs Labs: 05/13/18 07:46 05/13/18 07:46 PT 12.6 SECONDS (9.7-12.2) H 05/13/18 07:46 INR 1.2 05/13/18 07:46 APTT 34 SECONDS (21-34) 05/13/18 07:46 - Constitutional Appears: Non-toxic, Chronically Ill - Head Exam Head Exam: ATRAUMATIC, NORMAL INSPECTION, NORMOCEPHALIC - Eye Exam Eye Exam: EOMI - ENT Exam ENT Exam: Mucous Membranes Moist - Neck Exam Neck Exam: Full ROM, Normal Inspection - Respiratory Exam Respiratory Exam: absent: Respiratory Distress - Cardiovascular Exam Cardiovascular Exam: +S1, +S2 - GI/Abdominal Exam GI & Abdominal Exam: Soft, Normal Bowel Sounds. absent: Tenderness - Extremities Exam Extremities Exam: absent: Full ROM, Normal Inspection Additional comments: dressing clean dry intact - Back Exam Back Exam: NORMAL INSPECTION - Neurological Exam Neurological Exam: Alert, Awake, Oriented x3 - Psychiatric Exam Psychiatric exam: Normal Affect, Normal Mood - Skin Skin Exam: Dry, Intact, Normal Color, Warm Assessment and Plan - Assessment and Plan (Free Text) Assessment: This is a 68 yo female with 1. Gangrene of toe -vascular sx consult. Dr. Romero. recs appreciated. -ID consult. Dr. Nunez. recs appreciated. -on IV cefepime. -adding flagyl -CT angio with runoff pending report -ABIs pending report -podiatry consult. Dr. Dior. recs appreciated. 2. Hx of PVD -ABIs pending -vascular surgery consult. Dr. Romero. recs appreciated. 3. hx of CKD -nephrology consult. Dr. Torres. recs appreciated -nephro uday -sevelamer -losartan daily -getting dialysis today 3. Hx of diabetes -HGB a1c 6.7 -ISS -hypoglycemia protocol 4. Hx of CAD -continue coreg BID -cardio consult. Dr. Ledesma. recs apprecated. 5. Hx of CHF -cardio consult. recs appreciated. Dr. Ledesma. -continue coreg BID. 6. Anemia -likely secondary to CKD -procrit 4000 IV TTS -transfusions as needed 7. hx of hypertension -continue losartan daily 7. GI/DVT -heart healthy diet discussed with Dr. Denis.
--- NOTE | 2018-05-13 13:10 | CP.PCM.PN ---
Subjective - Date & Time of Evaluation Date of Evaluation: 05/13/18 Time of Evaluation: 06:25 - Subjective Subjective: surgery progress note for Dr. Romero Patient examined at bedside. No acute events overnight. Patient denies complaint at this time including chest pain, SOB, nausea, diarrhea, LE pain. Objective - Vital Signs/Intake and Output Vital Signs (last 24 hours): Temp Pulse Resp BP Pulse Ox 97.7 F 64 16 135/75 96 05/13/18 10:55 05/13/18 10:55 05/13/18 10:55 05/13/18 11:45 05/13/18 10:30 Intake and Output: 05/13/18 05/13/18 06:59 18:59 Intake Total 400 Output Total 0 Balance 400 - Medications Medications: Current Medications Carvedilol (Coreg) 3.125 mg PO BID [facility] Last Admin: 05/13/18 10:20 Dose: Not Given Dextrose (Dextrose 50% Inj) 0 ml IV STAT PRN; Protocol PRN Reason: Hypoglycemia Protocol Dextrose (Glutose 15) 0 gm PO ONCE PRN; Protocol PRN Reason: Hypoglycemia Protocol Epoetin Etienne (Procrit) 4,000 unit IV TTS [facility] Last Admin: 05/13/18 12:20 Dose: 4,000 unit Glucagon (Glucagen Diagnostic Kit) 0 mg IM STAT PRN; Protocol PRN Reason: Hypoglycemia Protocol Cefepime HCl 1 gm/ Dextrose 50 mls @ 100 mls/hr IVPB Q12H [facility]; Protocol Last Admin: 05/13/18 08:07 Dose: 100 mls/hr Dextrose (Dextrose 5% In Water 1000 Ml) 1,000 mls @ 0 mls/hr IV .Q0M PRN; Protocol PRN Reason: Hypoglycemia Protocol Sodium Chloride (Sodium Chloride 0.9% Addvantage) 250 mls @ 166.7 mls/hr IV MWF [facility]; Protocol Vancomycin/Sodium Chloride (Vancomycin 1 Gm/Ns 200 Ml) 1 gm in 200 mls @ 133.333 mls/hr IVPB ONCE ONE; Protocol Stop: 05/13/18 14:29 Metronidazole 250 mg/ (Miscellaneous) 50 mls @ 100 mls/hr IVPB Q8H [facility]; Protocol Insulin Human Regular (Novolin R) 0 unit SC ACHS [facility]; Protocol Last Admin: 05/13/18 07:49 Dose: Not Given Losartan Potassium (Cozaar) 100 mg PO QPM [facility] Last Admin: 05/12/18 17:42 Dose: 100 mg Sevelamer Carbonate (Renvela) 800 mg PO TIDCC [facility] Last Admin: 05/13/18 08:07 Dose: 800 mg Vitamin B Complex/Vit C/Folic Acid (Nephro-Naren) 1 tab PO 0800 [facility] Last Admin: 05/13/18 08:07 Dose: 1 tab - Labs Labs: 05/13/18 07:46 05/13/18 07:46 PT 12.6 SECONDS (9.7-12.2) H 05/13/18 07:46 INR 1.2 05/13/18 07:46 APTT 34 SECONDS (21-34) 05/13/18 07:46 - Constitutional Appears: Non-toxic, No Acute Distress - Head Exam Head Exam: ATRAUMATIC, NORMAL INSPECTION, NORMOCEPHALIC - Eye Exam Eye Exam: EOMI, Normal appearance - ENT Exam ENT Exam: Mucous Membranes Moist, Normal Exam - Respiratory Exam Respiratory Exam: NORMAL BREATHING PATTERN. absent: Respiratory Distress - Cardiovascular Exam Cardiovascular Exam: REGULAR RHYTHM. absent: Tachycardia - GI/Abdominal Exam GI & Abdominal Exam: Soft. absent: Tenderness - Extremities Exam Extremities Exam: Pedal Edema Additional comments: right LE wrapped, clean/dry/intact - Neurological Exam Neurological Exam: Alert, Awake - Psychiatric Exam Psychiatric exam: Normal Affect, Normal Mood - Skin Skin Exam: Dry, Warm Assessment and Plan - Assessment and Plan (Free Text) Assessment: 68 year old female admitted with gangrenous great right toe 2/2 vascular disease Plan: -IV antibiotics -f/u report of CT abdomen with ileo-femoral runoff -f/u TERESA/PVRs -PT, encourage ambulation -medical management per primary Will discuss with Dr. Heather Bautista, PGY-1
[2018-05-13] MEDS: metroNIDAZOLE IV 500 mg/100 ml 250 MG in Premixed IV 1 EA IVPB SCH ×3 (14:28→22:14)
[2018-05-14] MEDS: metroNIDAZOLE IV 500 mg/100 ml 250 MG in Premixed IV 1 EA IVPB SCH ×3 (05:43→21:54)
[2018-05-14 07:28] LABS: BASO # 0.1 K/uL (0.0-0.2); BASO % 0.7 % (0.0-2.0); EOS # 0.2 K/uL (0.0-0.7); EOS % 1.8 % (0.0-4.0); HEMOGLOBIN 9.5 g/dL (11.0-16.0); LYMPH # 1.2 K/uL (1.0-4.3); LYMPH % 12.2 % (20.0-40.0); MEAN CELL VOLUME 100.3 fL (81.0-99.0); MEAN CORPUSCULAR HEMOGLOBIN 33.3 pg (27.0-31.0); MEAN CORPUSCULAR HGB CONC 33.2 g/dL (33.0-37.0); MEAN PLATELET VOLUME 7.9 fL (7.2-11.7); NEUT # 7.2 K/uL (1.8-7.0); NEUT % 75.3 % (50.0-75.0); NRBC % 0.1 % (0.0-2.0); RBC 2.84 Mil/uL (3.80-5.20); RED CELL DISTRIBUTION WIDTH 13.9 % (11.5-14.5); WHITE BLOOD COUNT 9.6 K/uL (4.8-10.8)
[2018-05-14 08:09] LABS: ALB/GLOB RATIO 0.9 (1.0-2.1); ALBUMIN 3.1 g/dL (3.5-5.0); CALCIUM 8.4 mg/dl (8.6-10.4)
[2018-05-14] MEDS: Multivitamin Vitamin B Complex (Nephro-Vite) Tab PO SCH (08:52)
[2018-05-14] MEDS: (Novolin R) Insulin Human Regular 100 units/ml vial SC SCH ×4 (08:52→21:48)
[2018-05-14] MEDS ORDERED: Sodium Chloride 0.9% 250 ML IV SCH (09:00)
--- NOTE | 2018-05-14 13:15 | CP.PCM.PN ---
Subjective - Date & Time of Evaluation Date of Evaluation: 05/14/18 Time of Evaluation: 13:14 - Subjective Subjective: patient is conscious and alert not in acute distress. No nausea no vomiting no chest pain reported. Vital signs stable. Objective - Vital Signs/Intake and Output Vital Signs (last 24 hours): Temp Pulse Resp BP Pulse Ox 97.6 F 70 20 152/78 H 96 05/14/18 08:00 05/14/18 08:00 05/14/18 08:00 05/14/18 08:00 05/14/18 08:00 - Medications Medications: Current Medications Carvedilol (Coreg) 3.125 mg PO BID [facility] Last Admin: 05/14/18 09:09 Dose: 3.125 mg Dextrose (Dextrose 50% Inj) 0 ml IV STAT PRN; Protocol PRN Reason: Hypoglycemia Protocol Dextrose (Glutose 15) 0 gm PO ONCE PRN; Protocol PRN Reason: Hypoglycemia Protocol Epoetin Etienne (Procrit) 4,000 unit IV TTS [facility] Last Admin: 05/13/18 12:20 Dose: 4,000 unit Glucagon (Glucagen Diagnostic Kit) 0 mg IM STAT PRN; Protocol PRN Reason: Hypoglycemia Protocol Dextrose (Dextrose 5% In Water 1000 Ml) 1,000 mls @ 0 mls/hr IV .Q0M PRN; Protocol PRN Reason: Hypoglycemia Protocol Sodium Chloride (Sodium Chloride 0.9% Addvantage) 250 mls @ 166.7 mls/hr IV MWF [facility]; Protocol Metronidazole 250 mg/ (Miscellaneous) 50 mls @ 100 mls/hr IVPB Q8H [facility]; Protocol Last Admin: 05/14/18 05:43 Dose: 100 mls/hr Cefepime HCl 1 gm/ Dextrose 50 mls @ 100 mls/hr IVPB Q24H [facility]; Protocol Insulin Human Regular (Novolin R) 0 unit SC ACHS [facility]; Protocol Last Admin: 05/14/18 08:52 Dose: 1 units Losartan Potassium (Cozaar) 100 mg PO QPM [facility] Last Admin: 05/13/18 17:53 Dose: 100 mg Sevelamer Carbonate (Renvela) 800 mg PO TIDCC [facility] Last Admin: 05/14/18 08:52 Dose: 800 mg Vitamin B Complex/Vit C/Folic Acid (Nephro-Naren) 1 tab PO 0800 [facility] Last Admin: 05/14/18 08:52 Dose: 1 tab - Labs Labs: 05/14/18 07:18 05/14/18 07:18 PT 12.6 SECONDS (9.7-12.2) H 05/13/18 07:46 INR 1.2 05/13/18 07:46 APTT 34 SECONDS (21-34) 05/13/18 07:46 - Constitutional Appears: No Acute Distress - Eye Exam Eye Exam: Conjunctival injection - ENT Exam ENT Exam: Mucous Membranes Moist - Neck Exam Neck Exam: absent: Lymphadenopathy - Respiratory Exam Respiratory Exam: NORMAL BREATHING PATTERN. absent: Chest Wall Tenderness - Cardiovascular Exam Cardiovascular Exam: absent: Gallop, JVD, Rubs - GI/Abdominal Exam GI & Abdominal Exam: Soft, Normal Bowel Sounds - Extremities Exam Extremities Exam: absent: Calf Tenderness - Back Exam Back Exam: absent: CVA tenderness (L), CVA tenderness (R) - Neurological Exam Neurological Exam: Alert - Psychiatric Exam Psychiatric exam: Normal Affect - Skin Skin Exam: absent: Cyanosis Assessment and Plan - Assessment and Plan (Free Text) Assessment: Assessment: Stable Rt foot great toe necrosis/gangrene Diabetic chronic Kidney Disease (E11.22) Hypertensive Chronic Kidney Disease (I12.0) End stage renal disease (N18.6) dependence on hemodialysis (Z99.2) (TTS) via AVF Anemia (D64.9), Hyperphosphatemia (E83.39), Secondary Hyperparathyroidism (E21.1 ), HTN (I12.0) , sys CHF with moderate to severe TR, PVD Plan: HD TTS. Continue with Nephrovite 1 tab/day. pt had severe allergic reaction to polysulphone dialyzers (cardiac arrest) in past, hence uses only [place] Exeltra. PRBC as needed for anemia. on [place] with dialysis as last Hb 9.5 Continue with phos binders, last phos level: 3 Continue with calcitriol. BP control with meds as ordered. Patient on RAAS kam as losartan Glycemic control, Dialysis consistent diet Further work up/management as per primary team Dose meds/antibiotics (if needed) for ESRD status. Avoid fleets enema/magnesium based laxatives.
--- NOTE | 2018-05-14 15:23 | CP.PCM.PN ---
Subjective - Date & Time of Evaluation Date of Evaluation: 05/14/18 Time of Evaluation: 15:20 - Subjective Subjective: Progress note. Attending: Dr. Denis. Pt seen and examined at bedside. No acute distress. No events overnight. No fevers, chills, vomiting, diarrhea. Objective - Vital Signs/Intake and Output Vital Signs (last 24 hours): Temp Pulse Resp BP Pulse Ox 97.6 F 70 20 152/78 H 96 05/14/18 08:00 05/14/18 08:00 05/14/18 08:00 05/14/18 08:00 05/14/18 08:00 - Medications Medications: Current Medications Carvedilol (Coreg) 3.125 mg PO BID [facility] Last Admin: 05/14/18 09:09 Dose: 3.125 mg Dextrose (Dextrose 50% Inj) 0 ml IV STAT PRN; Protocol PRN Reason: Hypoglycemia Protocol Dextrose (Glutose 15) 0 gm PO ONCE PRN; Protocol PRN Reason: Hypoglycemia Protocol Epoetin Etienne (Procrit) 4,000 unit IV TTS [facility] Last Admin: 05/13/18 12:20 Dose: 4,000 unit Glucagon (Glucagen Diagnostic Kit) 0 mg IM STAT PRN; Protocol PRN Reason: Hypoglycemia Protocol Dextrose (Dextrose 5% In Water 1000 Ml) 1,000 mls @ 0 mls/hr IV .Q0M PRN; Protocol PRN Reason: Hypoglycemia Protocol Metronidazole 250 mg/ (Miscellaneous) 50 mls @ 100 mls/hr IVPB Q8H [facility]; Protocol Last Admin: 05/14/18 13:40 Dose: 100 mls/hr Cefepime HCl 1 gm/ Dextrose 50 mls @ 100 mls/hr IVPB Q24H [facility]; Protocol Insulin Human Regular (Novolin R) 0 unit SC ACHS [facility]; Protocol Last Admin: 05/14/18 12:37 Dose: 1 units Losartan Potassium (Cozaar) 100 mg PO QPM [facility] Last Admin: 05/13/18 17:53 Dose: 100 mg Sevelamer Carbonate (Renvela) 800 mg PO TIDCC [facility] Last Admin: 05/14/18 12:52 Dose: 800 mg Vitamin B Complex/Vit C/Folic Acid (Nephro-Uday) 1 tab PO 0800 [facility] Last Admin: 05/14/18 08:52 Dose: 1 tab - Labs Labs: 05/14/18 07:18 05/14/18 07:18 PT 12.6 SECONDS (9.7-12.2) H 05/13/18 07:46 INR 1.2 05/13/18 07:46 APTT 34 SECONDS (21-34) 05/13/18 07:46 - Constitutional Appears: Non-toxic, No Acute Distress - Head Exam Head Exam: ATRAUMATIC, NORMAL INSPECTION, NORMOCEPHALIC - Eye Exam Eye Exam: EOMI - ENT Exam ENT Exam: Mucous Membranes Moist - Neck Exam Neck Exam: Full ROM, Normal Inspection - Respiratory Exam Respiratory Exam: absent: Respiratory Distress - Cardiovascular Exam Cardiovascular Exam: +S1, +S2 - GI/Abdominal Exam GI & Abdominal Exam: Soft, Normal Bowel Sounds. absent: Tenderness - Extremities Exam Extremities Exam: absent: Full ROM, Normal Inspection - Back Exam Back Exam: NORMAL INSPECTION - Neurological Exam Neurological Exam: Alert, Awake, CN II-XII Intact - Psychiatric Exam Psychiatric exam: Flat Affect - Skin Skin Exam: Dry, Intact, Normal Color, Warm Assessment and Plan - Assessment and Plan (Free Text) Assessment: This is a 68 yo female with 1. Gangrene of toe -vascular sx consult. Dr. Romero. recs appreciated. -ID consult. Dr. Nunez. recs appreciated. -on IV cefepime changed daily -adding flagyl 250 mg q 8 -CT angio with runoff pending report -ABIs pending report -podiatry consult. Dr. Dior. recs appreciated. 2. Hx of PVD -ABIs pending -vascular surgery consult. Dr. Romero. recs appreciated. 3. hx of CKD -nephrology consult. Dr. Torres. recs appreciated -nephro uday -sevelamer -losartan daily -getting dialysis today 3. Hx of diabetes -HGB a1c 6.7 -ISS -hypoglycemia protocol 4. Hx of CAD -continue coreg BID -cardio consult. Dr. Ledesma. recs apprecated. 5. Hx of CHF -cardio consult. recs appreciated. Dr. Ledesma. -continue coreg BID. 6. Anemia -likely secondary to CKD -procrit 4000 IV TTS -transfusions as needed 7. hx of hypertension -continue losartan daily 7. GI/DVT -heart healthy diet discussed with Dr. Denis.
--- NOTE | 2018-05-14 16:20 | CP.PCM.PN ---
Subjective - Date & Time of Evaluation Date of Evaluation: 05/14/18 Time of Evaluation: 16:17 - Subjective Subjective: Vascular Surgery: Dr. Romero Pt seen and examined. No acute events overnight. Pt feeling ok and admits to some pain in R hallux. Denies other complaints at this time. Objective - Vital Signs/Intake and Output Vital Signs (last 24 hours): Temp Pulse Resp BP Pulse Ox 98.0 F 72 20 139/78 99 05/14/18 15:00 05/14/18 15:00 05/14/18 15:00 05/14/18 15:00 05/14/18 15:00 - Medications Medications: Current Medications Carvedilol (Coreg) 3.125 mg PO BID [facility] Last Admin: 05/14/18 09:09 Dose: 3.125 mg Dextrose (Dextrose 50% Inj) 0 ml IV STAT PRN; Protocol PRN Reason: Hypoglycemia Protocol Dextrose (Glutose 15) 0 gm PO ONCE PRN; Protocol PRN Reason: Hypoglycemia Protocol Epoetin Etienne (Procrit) 4,000 unit IV TTS [facility] Last Admin: 05/13/18 12:20 Dose: 4,000 unit Glucagon (Glucagen Diagnostic Kit) 0 mg IM STAT PRN; Protocol PRN Reason: Hypoglycemia Protocol Dextrose (Dextrose 5% In Water 1000 Ml) 1,000 mls @ 0 mls/hr IV .Q0M PRN; Protocol PRN Reason: Hypoglycemia Protocol Metronidazole 250 mg/ (Miscellaneous) 50 mls @ 100 mls/hr IVPB Q8H [facility]; Protocol Last Admin: 05/14/18 13:40 Dose: 100 mls/hr Cefepime HCl 1 gm/ Dextrose 50 mls @ 100 mls/hr IVPB Q24H [facility]; Protocol Insulin Human Regular (Novolin R) 0 unit SC ACHS [facility]; Protocol Last Admin: 05/14/18 12:37 Dose: 1 units Losartan Potassium (Cozaar) 100 mg PO QPM [facility] Last Admin: 05/13/18 17:53 Dose: 100 mg Sevelamer Carbonate (Renvela) 800 mg PO TIDCC [facility] Last Admin: 05/14/18 12:52 Dose: 800 mg Sodium Hypochlorite (Dakins Solution 0.125%) 1 appl TOP Q12 [facility] Vitamin B Complex/Vit C/Folic Acid (Nephro-Naren) 1 tab PO 0800 [facility] Last Admin: 05/14/18 08:52 Dose: 1 tab - Labs Labs: 05/14/18 07:18 05/14/18 07:18 PT 12.6 SECONDS (9.7-12.2) H 05/13/18 07:46 INR 1.2 05/13/18 07:46 APTT 34 SECONDS (21-34) 05/13/18 07:46 - Constitutional Appears: Well, No Acute Distress - Head Exam Head Exam: ATRAUMATIC, NORMOCEPHALIC - ENT Exam ENT Exam: Mucous Membranes Moist - Respiratory Exam Respiratory Exam: NORMAL BREATHING PATTERN - Cardiovascular Exam Cardiovascular Exam: RRR - GI/Abdominal Exam GI & Abdominal Exam: Soft. absent: Tenderness - Extremities Exam Additional comments: b/l LE warm, motor/sensory intact; R hallux gangrenous with foul smelling discharge - Neurological Exam Neurological Exam: Alert, Awake, Oriented x3 - Skin Skin Exam: Dry, Warm Assessment and Plan - Assessment and Plan (Free Text) Assessment: 68F with gangrenous R hallux & PVD Plan: - plan for angio in AM - keep NPO after midnight - d/w Dr. Heather Chinchilla
--- NOTE | 2018-05-14 20:30 | CON ---
DATE: 05/14/2018 REQUESTING PHYSICIAN: Maite Denis MD HISTORY OF PRESENT ILLNESS: This is a 68-year-old black female who has a history of dialysis and peripheral vascular disease. She is seen at bedside with a totally gangrenous right hallux of the right foot. No pulses palpated. The forefoot is ischemic, and the right lower extremity shows severe arterial disease on the right side with moderate disease on the left. In evaluating the patient surgically, I doubt that any forefoot surgery is likely to heal and in conference with Dr. Romero more likely that a BK amputation will be of more benefit to this patient. Willi Alexandre DPM
--- NOTE | 2018-05-15 | CP.PCM.PN ---
Subjective - Date & Time of Evaluation Date of Evaluation: 05/13/18 Time of Evaluation: 16:20 - Subjective Subjective: Patient examined at bedside. No acute events overnight. Patient denies complaint at this time including chest pain, SOB, nausea, diarrhea, LE pain. Physical Examination - Constitutional Appears: Non-toxic, No Acute Distress - Head Exam Head Exam: ATRAUMATIC, NORMAL INSPECTION, NORMOCEPHALIC - Eye Exam Eye Exam: EOMI, Normal appearance - ENT Exam ENT Exam: Mucous Membranes Moist, Normal Exam - Respiratory Exam Respiratory Exam: NORMAL BREATHING PATTERN. absent: Respiratory Distress - Cardiovascular Exam Cardiovascular Exam: REGULAR RHYTHM. absent: Tachycardia - GI/Abdominal Exam GI & Abdominal Exam: Soft. absent: Tenderness - Extremities Exam Extremities Exam: Pedal Edema Additional comments: right LE wrapped, clean/dry/intact - Neurological Exam Neurological Exam: Alert, Awake - Psychiatric Exam Psychiatric exam: Normal Affect, Normal Mood - Skin Skin Exam: Dry, Warm Assessment and Plan - Assessment and Plan (Free Text) Assessment: 68 year old female admitted with gangrenous great right toe 2/2 vascular disease Plan: -IV antibiotics -f/u report of CT abdomen with ileo-femoral runoff -f/u TERESA/PVRs -PT, encourage ambulation -medical management Objective - Vital Signs/Intake and Output Vital Signs (last 24 hours): Temp Pulse Resp BP Pulse Ox 98.0 F 72 20 139/78 99 05/14/18 15:00 05/14/18 15:00 05/14/18 15:00 05/14/18 15:00 05/14/18 15:00 - Medications Medications: Current Medications Carvedilol (Coreg) 3.125 mg PO BID [facility] Last Admin: 05/14/18 17:33 Dose: 3.125 mg Dextrose (Dextrose 50% Inj) 0 ml IV STAT PRN; Protocol PRN Reason: Hypoglycemia Protocol Dextrose (Glutose 15) 0 gm PO ONCE PRN; Protocol PRN Reason: Hypoglycemia Protocol Epoetin Etienne (Procrit) 4,000 unit IV TTS [facility] Last Admin: 05/13/18 12:20 Dose: 4,000 unit Glucagon (Glucagen Diagnostic Kit) 0 mg IM STAT PRN; Protocol PRN Reason: Hypoglycemia Protocol Dextrose (Dextrose 5% In Water 1000 Ml) 1,000 mls @ 0 mls/hr IV .Q0M PRN; Protocol PRN Reason: Hypoglycemia Protocol Metronidazole 250 mg/ (Miscellaneous) 50 mls @ 100 mls/hr IVPB Q8H [facility]; Protocol Last Admin: 05/14/18 21:54 Dose: 100 mls/hr Cefepime HCl 1 gm/ Dextrose 50 mls @ 100 mls/hr IVPB Q24H [facility]; Protocol Last Admin: 05/14/18 21:54 Dose: 100 mls/hr Insulin Human Regular (Novolin R) 0 unit SC ACHS [facility]; Protocol Last Admin: 05/14/18 21:48 Dose: Not Given Losartan Potassium (Cozaar) 100 mg PO QPM [facility] Last Admin: 05/14/18 17:33 Dose: 100 mg Sevelamer Carbonate (Renvela) 800 mg PO TIDCC [facility] Last Admin: 05/14/18 17:33 Dose: 800 mg Sodium Hypochlorite (Dakins Solution 0.125%) 1 appl TOP Q12 [facility] Last Admin: 05/14/18 21:57 Dose: 1 appl Vitamin B Complex/Vit C/Folic Acid (Nephro-Naren) 1 tab PO 0800 [facility] Last Admin: 05/14/18 08:52 Dose: 1 tab - Labs Labs: 05/14/18 07:18 05/14/18 07:18 PT 12.6 SECONDS (9.7-12.2) H 05/13/18 07:46 INR 1.2 05/13/18 07:46 APTT 34 SECONDS (21-34) 05/13/18 07:46
--- NOTE | 2018-05-15 00:01 | CP.PCM.PN ---
Subjective - Date & Time of Evaluation Date of Evaluation: 05/14/18 Time of Evaluation: 14:10 - Subjective Subjective: Patient examined at bedside. No acute events overnight. Patient denies complaint at this time including chest pain, SOB, nausea, diarrhea, LE pain. Physical Examination - Constitutional Appears: Non-toxic, No Acute Distress - Head Exam Head Exam: ATRAUMATIC, NORMAL INSPECTION, NORMOCEPHALIC - Eye Exam Eye Exam: EOMI, Normal appearance - ENT Exam ENT Exam: Mucous Membranes Moist, Normal Exam - Respiratory Exam Respiratory Exam: NORMAL BREATHING PATTERN. absent: Respiratory Distress - Cardiovascular Exam Cardiovascular Exam: REGULAR RHYTHM. absent: Tachycardia - GI/Abdominal Exam GI & Abdominal Exam: Soft. absent: Tenderness - Extremities Exam Extremities Exam: Pedal Edema Additional comments: right LE wrapped, clean/dry/intact - Neurological Exam Neurological Exam: Alert, Awake - Psychiatric Exam Psychiatric exam: Normal Affect, Normal Mood - Skin Skin Exam: Dry, Warm Assessment and Plan - Assessment and Plan (Free Text) Assessment: 68 year old female admitted with gangrenous great right toe 2/2 vascular disease Plan: -IV antibiotics -f/u report of CT abdomen with ileo-femoral runoff -f/u TERESA/PVRs -PT, encourage ambulation -medical management Objective - Vital Signs/Intake and Output Vital Signs (last 24 hours): Temp Pulse Resp BP Pulse Ox 98.0 F 72 20 139/78 99 05/14/18 15:00 05/14/18 15:00 05/14/18 15:00 05/14/18 15:00 05/14/18 15:00 - Medications Medications: Current Medications Carvedilol (Coreg) 3.125 mg PO BID [facility] Last Admin: 05/14/18 17:33 Dose: 3.125 mg Dextrose (Dextrose 50% Inj) 0 ml IV STAT PRN; Protocol PRN Reason: Hypoglycemia Protocol Dextrose (Glutose 15) 0 gm PO ONCE PRN; Protocol PRN Reason: Hypoglycemia Protocol Epoetin Etienne (Procrit) 4,000 unit IV TTS [facility] Last Admin: 05/13/18 12:20 Dose: 4,000 unit Glucagon (Glucagen Diagnostic Kit) 0 mg IM STAT PRN; Protocol PRN Reason: Hypoglycemia Protocol Dextrose (Dextrose 5% In Water 1000 Ml) 1,000 mls @ 0 mls/hr IV .Q0M PRN; Protocol PRN Reason: Hypoglycemia Protocol Metronidazole 250 mg/ (Miscellaneous) 50 mls @ 100 mls/hr IVPB Q8H [facility]; Protocol Last Admin: 05/14/18 21:54 Dose: 100 mls/hr Cefepime HCl 1 gm/ Dextrose 50 mls @ 100 mls/hr IVPB Q24H [facility]; Protocol Last Admin: 05/14/18 21:54 Dose: 100 mls/hr Insulin Human Regular (Novolin R) 0 unit SC ACHS [facility]; Protocol Last Admin: 05/14/18 21:48 Dose: Not Given Losartan Potassium (Cozaar) 100 mg PO QPM [facility] Last Admin: 05/14/18 17:33 Dose: 100 mg Sevelamer Carbonate (Renvela) 800 mg PO TIDCC [facility] Last Admin: 05/14/18 17:33 Dose: 800 mg Sodium Hypochlorite (Dakins Solution 0.125%) 1 appl TOP Q12 [facility] Last Admin: 05/14/18 21:57 Dose: 1 appl Vitamin B Complex/Vit C/Folic Acid (Nephro-Naren) 1 tab PO 0800 [facility] Last Admin: 05/14/18 08:52 Dose: 1 tab - Labs Labs: 05/14/18 07:18 05/14/18 07:18 PT 12.6 SECONDS (9.7-12.2) H 05/13/18 07:46 INR 1.2 05/13/18 07:46 APTT 34 SECONDS (21-34) 05/13/18 07:46
[2018-05-15] MEDS: metroNIDAZOLE IV 500 mg/100 ml 250 MG in Premixed IV 1 EA IVPB SCH ×3 (05:42→22:40)
[2018-05-15 07:13] LABS: HEMOGLOBIN 9.7 g/dL (11.0-16.0); MEAN CELL VOLUME 99.2 fL (81.0-99.0); MEAN CORPUSCULAR HGB CONC 33.2 g/dL (33.0-37.0); MEAN PLATELET VOLUME 7.9 fL (7.2-11.7); RBC 2.93 Mil/uL (3.80-5.20); RED CELL DISTRIBUTION WIDTH 13.6 % (11.5-14.5); WHITE BLOOD COUNT 9.7 K/uL (4.8-10.8)
[2018-05-15 07:26] LABS: CALCIUM 8.5 mg/dl (8.6-10.4)
--- NOTE | 2018-05-15 07:47 | CP.PCM.PN ---
Subjective - Date & Time of Evaluation Date of Evaluation: 05/15/18 Time of Evaluation: 07:47 - Subjective Subjective: PGY2- Progress note for Dr. Denis Patient was seen and examined at bedside in no acute distress. Patient has no complaints today. Patient denies chest pain, palpitations, nausea, vomiting, fevers, headache dyspnea, dysuria, constipation, and diarrhea. No acute events overnight noted. Objective - Vital Signs/Intake and Output Vital Signs (last 24 hours): Temp Pulse Resp BP Pulse Ox 97.6 F 55 L 20 149/78 95 05/15/18 07:00 05/15/18 07:00 05/15/18 07:00 05/15/18 07:00 05/15/18 07:00 - Medications Medications: Current Medications Carvedilol (Coreg) 3.125 mg PO BID [facility] Last Admin: 05/14/18 17:33 Dose: 3.125 mg Dextrose (Dextrose 50% Inj) 0 ml IV STAT PRN; Protocol PRN Reason: Hypoglycemia Protocol Dextrose (Glutose 15) 0 gm PO ONCE PRN; Protocol PRN Reason: Hypoglycemia Protocol Epoetin Etienne (Procrit) 4,000 unit IV TTS [facility] Last Admin: 05/13/18 12:20 Dose: 4,000 unit Glucagon (Glucagen Diagnostic Kit) 0 mg IM STAT PRN; Protocol PRN Reason: Hypoglycemia Protocol Dextrose (Dextrose 5% In Water 1000 Ml) 1,000 mls @ 0 mls/hr IV .Q0M PRN; Protocol PRN Reason: Hypoglycemia Protocol Metronidazole 250 mg/ (Miscellaneous) 50 mls @ 100 mls/hr IVPB Q8H [facility]; Protocol Last Admin: 05/15/18 05:42 Dose: 100 mls/hr Cefepime HCl 1 gm/ Dextrose 50 mls @ 100 mls/hr IVPB Q24H [facility]; Protocol Last Admin: 05/14/18 21:54 Dose: 100 mls/hr Insulin Human Regular (Novolin R) 0 unit SC ACHS [facility]; Protocol Last Admin: 05/14/18 21:48 Dose: Not Given Losartan Potassium (Cozaar) 100 mg PO QPM [facility] Last Admin: 05/14/18 17:33 Dose: 100 mg Sevelamer Carbonate (Renvela) 800 mg PO TIDCC [facility] Last Admin: 11/07/18 17:33 Dose: 800 mg Sodium Hypochlorite (Dakins Solution 0.125%) 1 appl TOP Q12 [facility] Last Admin: 05/14/18 21:57 Dose: 1 appl Vitamin B Complex/Vit C/Folic Acid (Nephro-Naren) 1 tab PO 0800 [facility] Last Admin: 05/14/18 08:52 Dose: 1 tab - Labs Labs: 05/15/18 06:59 05/15/18 06:59 PT 12.6 SECONDS (9.7-12.2) H 05/13/18 07:46 INR 1.2 05/13/18 07:46 APTT 34 SECONDS (21-34) 05/13/18 07:46 - Constitutional Appears: No Acute Distress - Head Exam Head Exam: NORMAL INSPECTION - Eye Exam Eye Exam: EOMI, Normal appearance - ENT Exam ENT Exam: Mucous Membranes Moist - Respiratory Exam Respiratory Exam: Clear to Ausculation Bilateral, NORMAL BREATHING PATTERN. absent: Rhonchi, Wheezes, Respiratory Distress - Cardiovascular Exam Cardiovascular Exam: REGULAR RHYTHM, +S1, +S2 - GI/Abdominal Exam GI & Abdominal Exam: Soft, Normal Bowel Sounds. absent: Distended, Firm, Gua rding, Tenderness - Extremities Exam Extremities Exam: absent: Pedal Edema, Tenderness Additional comments: RLE- dressing clean, dry, intact - Neurological Exam Neurological Exam: Alert, Awake, Oriented x3 - Psychiatric Exam Psychiatric exam: Normal Affect, Normal Mood - Skin Skin Exam: Dry, Normal Color, Warm Assessment and Plan - Assessment and Plan (Free Text) Plan: Gangrene of toe - Podiatry consult- Dr. Dior. recs appreciated. - Vascular sx consult- Dr. Romero. recs appreciated. - ID consult- Dr. Nunez. recs appreciated. - Blood cx x2: negative to date - Wound cx: + proteus mirabilis citrobacter freudii - Cefepim 1g IV Q24h - Flagyl 250mg IV Q8 h - CT angio with runoff: f/u - ABIs: f/u PVD - Vascular surgery consult- Dr. Romero. recs appreciated. - CT angio with runoff: f/u - ABIs: f/u ESRD on Dialysis - Nephrology consult- Dr. Caro; help appreciated - Continue Nephrovite, Sevelamer - Losartan 100mg QPM - Continue dialysis TTS Diabetes Mellitus - HGB a1c 6.7 - ISS - Hypoglycemia protocol - Accuchecks CAD - Continue Coreg 3.125mg PO BID - Cardio consult- Dr. Ledesma. recs appreciated. CHF - Cardio consult- Dr. Ledesma; recs appreciated. - Continue Coreg 3.125mg PO BID Anemia - Likely secondary to CKD - Procrit 4000 IV TTS - Transfusions as needed Hypertension - Continue losartan daily Prophylaxis - Heart healthy diet - PT/OT All management/orders per Dr. Denis.
[2018-05-15] MEDS: (Novolin R) Insulin Human Regular 100 units/ml vial SC SCH ×4 (09:10→21:32)
[2018-05-15] MEDS: Multivitamin Vitamin B Complex (Nephro-Vite) Tab PO SCH (09:10)
[2018-05-15] MEDS: EPOETIN ALFA 4,000 UNIT/ML ML Dialysis IV SCH (12:00)
--- NOTE | 2018-05-15 14:11 | VASCLAB ---
Date of service: 05/13/2018 STUDY DESCRIPTION: Lower Extremity Arterial Exam (PVR). HISTORY: PAD PRIORS: None. TECHNIQUE: Pulse volume recording waveforms and segmental pressures of bilateral lower extremities at multiple levels were obtained. Ankle Brachial Indices (ABIs) were calculated. Report prepared by Donnie Leroy, BOBBY, RVT RIGHT LOWER EXTREMITY: * Brachial artery: Pressure - 123 mmHg. * High thigh: PVR waveform - Reduced * Low thigh: PVR waveform: Reduced * Calf: Pressure - 66 mmHg: Ratio - 0.54 PVR waveform: Reduced * Posterior tibial Artery: Pressure - 59 mmHg: Ratio - 0.48 PVR waveform: Reduced * Dorsalis pedis Artery: Pressure - 45 mmHg: Ratio - 0.37 PVR waveform: Reduced Ankle brachial index (TERESA): 0.48 LEFT LOWER EXTREMITY: * Brachial artery: Not optimally obtained. * High thigh: PVR waveform - Reduced * Low thigh: PVR waveform: Reduced * Calf: Pressure - 220 mmHg: Ratio - NC PVR waveform: Reduced * Posterior tibial Artery: PVR waveform: Reduced * Dorsalis pedis Artery: Pressure - 220 mmHg: Ratio - NC PVR waveform: Reduced Ankle brachial index (TERESA): NC OTHER FINDINGS: None significant. IMPRESSION: Right: This exam reveals severely decreased perfusion of the right lower extremity, from at the iliac to distal small artery levels. Left: The ankle pressure index of the left lower extremity is non-diagnostic due to possible arterial wall calcifications. However, pulse volume recording waveforms are suggestive of multi-level arterial diseases from iliac to distal small arteries.
--- NOTE | 2018-05-15 15:40 | CP.PCM.PN ---
Subjective - Date & Time of Evaluation Date of Evaluation: 05/15/18 Time of Evaluation: 15:40 - Subjective Subjective: Nephrology Consultation Note: Assessment: Stable Rt foot great toe necrosis/gangrene Diabetic chronic Kidney Disease (E11.22) Hypertensive Chronic Kidney Disease (I12.0) End stage renal disease (N18.6) dependence on hemodialysis (Z99.2) (TTS) via AVF Anemia (D64.9), Hyperphosphatemia (E83.39), Secondary Hyperparathyroidism (E 21.1), HTN (I12.0) Obesity, sys CHF with moderate to severe TR, PVD Plan: Will plan for dialysis today as per TTS. Continue with Nephrovite 1 tab/day. pt had severe allergic reaction to polysulphone dialyzers (cardiac arrest) in past, hence uses only [place] Exeltra. PRBC as needed for anemia. on [place] with dialysis as last Hb 9.7 Continue with phos binders, last phos level: 3.8 Continue with calcitriol. BP control with meds as ordered. Patient on RAAS kam as losartan Glycemic control, Dialysis consistent diet Further work up/management as per primary team Dose meds/antibiotics (if needed) for ESRD status. Avoid fleets enema/magnesium based laxatives. Thanks for allowing me to participate in care of your patient. Will follow patient with you. Please call if any Qs. had d/w team Dr Juan Torres Office: [phone] Chief Complaint;RT toe wound HPI: Pt is a 68 F with hx of ESRD on hemod[facility] (TTS) [facility], last dialysis Sat, chronic anemia, hyperphosphatemia, secondary hyperparathyroidism, Diabetes Mellitus, hypertension, CHF, PVD, obesity presented with complaints of Rt foot great toe infection and wound. pt is being seen by vascular as well Renal consult requested for ESRD management. pt denies any other complaints at this time ROS: Cardiovascular: No chest pain. Pulmonary: No shortness of breath Gastrointestinal: denies abdominal pain No nausea. No vomiting. Genitourinary: No pain while urinating. Denies blood in urine. All other negative except as mentioned in HPI Physical Examination: seen during HD General Appearance: Comfortable, in no acute respiratory distress, co-operative . Vitals reviewed and noted as below Head; Atraumatic, normocephalic ENT: no ulcers no thrush. Tongue is midline. Oropharynx: no rash or ulcers. EYES: Pupils are equal, round and reactive to light accommodation. Eye muscles and extraocular movement intact. Sclera is anicteric. Neck; supple no lymphadenopathy, no thyromegaly or bruit Lungs: Normal respiratory rate/effort. Breath sounds bilateral equal and clear Heart: Normal rate. s1s2 normal. No rub or gallop. Extremities: pedal edema +. No varicose veins. Rt foot in dressing Neurological: Patient is alert, awake and oriented to person, place and time. No focal deficit. Strength bilateral appropriate and equal Skin: Warm and dry. Normal turgor. No rash. Palpitation: Normal elasticity for age Abdomen: Abdomen is soft. Bowel sounds +. There is no abdominal tenderness, no guarding/rigidity or organomegaly Psych: normal insight and normal affect/mood MSK: no joint tenderness or swelling. Digits and nails normal, no deformity : kidney or bladder not palpable Access: AVF Labs/imaging reviewed. Past medical history, past surgical history, family history, social history, allergy reviewed and noted as below Family Hx: no hx of CKD. Non contributory Objective - Vital Signs/Intake and Output Vital Signs (last 24 hours): Temp Pulse Resp BP Pulse Ox 97.5 F L 65 16 114/82 96 05/15/18 12:40 05/15/18 12:40 05/15/18 12:40 05/15/18 13:30 05/15/18 12:40 - Medications Medications: Current Medications Carvedilol (Coreg) 3.125 mg PO BID [facility] Last Admin: 05/15/18 09:09 Dose: Not Given Dextrose (Dextrose 50% Inj) 0 ml IV STAT PRN; Protocol PRN Reason: Hypoglycemia Protocol Dextrose (Glutose 15) 0 gm PO ONCE PRN; Protocol PRN Reason: Hypoglycemia Protocol Epoetin Etienne (Procrit) 4,000 unit IV TTS [facility] Last Admin: 05/15/18 12:00 Dose: 4,000 unit Glucagon (Glucagen Diagnostic Kit) 0 mg IM STAT PRN; Protocol PRN Reason: Hypoglycemia Protocol Metronidazole 250 mg/ (Miscellaneous) 50 mls @ 100 mls/hr IVPB Q8H [facility]; Protocol Last Admin: 05/15/18 13:48 Dose: 100 mls/hr Cefepime HCl 1 gm/ Dextrose 50 mls @ 100 mls/hr IVPB Q24H [facility]; Protocol Last Admin: 05/14/18 21:54 Dose: 100 mls/hr Insulin Human Regular (Novolin R) 0 unit SC ACHS [facility]; Protocol Last Admin: 05/15/18 11:51 Dose: Not Given Losartan Potassium (Cozaar) 100 mg PO QPM [facility] Last Admin: 05/14/18 17:33 Dose: 100 mg Sevelamer Carbonate (Renvela) 800 mg PO TIDCC [facility] Last Admin: 05/15/18 11:51 Dose: Not Given Sodium Hypochlorite (Dakins Solution 0.125%) 1 appl TOP Q12 [facility] Last Admin: 05/15/18 09:10 Dose: Not Given Vitamin B Complex/Vit C/Folic Acid (Nephro-Naren) 1 tab PO 0800 [facility] Last Admin: 05/15/18 09:10 Dose: Not Given - Labs Labs: 05/15/18 06:59 05/15/18 06:59 PT 12.6 SECONDS (9.7-12.2) H 05/13/18 07:46 INR 1.2 05/13/18 07:46 APTT 34 SECONDS (21-34) 05/13/18 07:46
--- NOTE | 2018-05-15 17:09 | CP.PCM.PN ---
Subjective - Date & Time of Evaluation Date of Evaluation: 05/15/18 Time of Evaluation: 07:00 - Subjective Subjective: Surgery: Dr. Romero Pt seen and examined. No acute overnight events. States she feels ok and denies complaints at this time. Denies fevers/chills, chest pain or SOB. Objective - Vital Signs/Intake and Output Vital Signs (last 24 hours): Temp Pulse Resp BP Pulse Ox 97.5 F L 75 20 139/86 97 05/15/18 15:00 05/15/18 15:00 05/15/18 15:00 05/15/18 15:00 05/15/18 15:00 - Medications Medications: Current Medications Carvedilol (Coreg) 3.125 mg PO BID [facility] Last Admin: 05/15/18 09:09 Dose: Not Given Dextrose (Dextrose 50% Inj) 0 ml IV STAT PRN; Protocol PRN Reason: Hypoglycemia Protocol Dextrose (Glutose 15) 0 gm PO ONCE PRN; Protocol PRN Reason: Hypoglycemia Protocol Epoetin Etienne (Procrit) 4,000 unit IV TTS [facility] Last Admin: 05/15/18 12:00 Dose: 4,000 unit Glucagon (Glucagen Diagnostic Kit) 0 mg IM STAT PRN; Protocol PRN Reason: Hypoglycemia Protocol Metronidazole 250 mg/ (Miscellaneous) 50 mls @ 100 mls/hr IVPB Q8H [facility]; Protocol Last Admin: 05/15/18 13:48 Dose: 100 mls/hr Cefepime HCl 1 gm/ Dextrose 50 mls @ 100 mls/hr IVPB Q24H [facility]; Protocol Last Admin: 05/14/18 21:54 Dose: 100 mls/hr Insulin Human Regular (Novolin R) 0 unit SC ACHS [facility]; Protocol Last Admin: 05/15/18 11:51 Dose: Not Given Losartan Potassium (Cozaar) 100 mg PO QPM [facility] Last Admin: 05/14/18 17:33 Dose: 100 mg Sevelamer Carbonate (Renvela) 800 mg PO TIDCC [facility] Last Admin: 05/15/18 11:51 Dose: Not Given Sodium Hypochlorite (Dakins Solution 0.125%) 1 appl TOP Q12 [facility] Last Admin: 05/15/18 09:10 Dose: Not Given Vitamin B Complex/Vit C/Folic Acid (Nephro-Naren) 1 tab PO 0800 [facility] Last Admin: 05/15/18 09:10 Dose: Not Given - Labs Labs: 05/15/18 06:59 05/15/18 06:59 PT 12.6 SECONDS (9.7-12.2) H 05/13/18 07:46 INR 1.2 05/13/18 07:46 APTT 34 SECONDS (21-34) 05/13/18 07:46 - Constitutional Appears: Well, No Acute Distress - Head Exam Head Exam: ATRAUMATIC, NORMOCEPHALIC - ENT Exam ENT Exam: Mucous Membranes Moist - Cardiovascular Exam Cardiovascular Exam: RRR - GI/Abdominal Exam GI & Abdominal Exam: Soft. absent: Tenderness - Extremities Exam Additional comments: necrotic hallux R foot with foul smelling drainage - Neurological Exam Neurological Exam: Alert, Awake, Oriented x3 - Skin Skin Exam: Warm Assessment and Plan - Assessment and Plan (Free Text) Assessment: 68F with necrotic hallux R foot and PVD Plan: - Angio tomorrow - keep NPO past midnight - d/w Dr. Heather Chinchilla
--- NOTE | 2018-05-15 19:13 | CP.PCM.PN ---
Subjective - Date & Time of Evaluation Date of Evaluation: 05/15/18 Time of Evaluation: 19:07 - Subjective Subjective: Podiatry progress note for Dr. Dior 68 y/o female patient seen and evaluated at bedside. Patient resting comfortably and denies any pain at this time. Denies fevers/chills, chest pain or SOB. Patient scheduled for angio with Dr. Romero on 05/16/18 Objective - Vital Signs/Intake and Output Vital Signs (last 24 hours): Temp Pulse Resp BP Pulse Ox 97.5 F L 68 20 143/68 97 05/15/18 15:00 05/15/18 17:27 05/15/18 15:00 05/15/18 17:27 05/15/18 15:00 Intake and Output: 05/15/18 05/16/18 18:59 06:59 Output Total 250 Balance -250 - Medications Medications: Current Medications Carvedilol (Coreg) 3.125 mg PO BID [facility] Last Admin: 05/15/18 17:26 Dose: 3.125 mg Dextrose (Dextrose 50% Inj) 0 ml IV STAT PRN; Protocol PRN Reason: Hypoglycemia Protocol Dextrose (Glutose 15) 0 gm PO ONCE PRN; Protocol PRN Reason: Hypoglycemia Protocol Epoetin Etienne (Procrit) 4,000 unit IV TTS [facility] Last Admin: 05/15/18 12:00 Dose: 4,000 unit Glucagon (Glucagen Diagnostic Kit) 0 mg IM STAT PRN; Protocol PRN Reason: Hypoglycemia Protocol Metronidazole 250 mg/ (Miscellaneous) 50 mls @ 100 mls/hr IVPB Q8H [facility]; Protocol Last Admin: 05/15/18 13:48 Dose: 100 mls/hr Cefepime HCl 1 gm/ Dextrose 50 mls @ 100 mls/hr IVPB Q24H [facility]; Protocol Last Admin: 05/14/18 21:54 Dose: 100 mls/hr Insulin Human Regular (Novolin R) 0 unit SC ACHS [facility]; Protocol Last Admin: 05/15/18 18:09 Dose: 2 units Losartan Potassium (Cozaar) 100 mg PO QPM [facility] Last Admin: 05/15/18 17:26 Dose: 100 mg Sevelamer Carbonate (Renvela) 800 mg PO TIDCC [facility] Last Admin: 05/15/18 17:26 Dose: 800 mg Sodium Hypochlorite (Dakins Solution 0.125%) 1 appl TOP Q12 [facility] Last Admin: 05/15/18 09:10 Dose: Not Given Vitamin B Complex/Vit C/Folic Acid (Nephro-Naren) 1 tab PO 0800 [facility] Last Admin: 05/15/18 09:10 Dose: Not Given - Labs Labs: 05/15/18 06:59 05/15/18 06:59 PT 12.6 SECONDS (9.7-12.2) H 05/13/18 07:46 INR 1.2 05/13/18 07:46 APTT 34 SECONDS (21-34) 05/13/18 07:46 - Constitutional Appears: Well, Non-toxic, No Acute Distress - Head Exam Head Exam: ATRAUMATIC, NORMOCEPHALIC - Extremities Exam Additional comments: VASC: DP and PT non-palpable bilaterally, CFT delayed X 10, TG cool to cool, no edema noted NEURO: diminished sensation bilaterally DERM: gangrenous changes noted to the right hallux, with positive malodor, positive probe to bone, no drainage noted, no other open lesions noted, no other clinical signs of infection noted ORTHO: patient denies pain at this time, MSK 5/5 - Neurological Exam Neurological Exam: Alert, Awake, Oriented x3 - Psychiatric Exam Psychiatric exam: Normal Affect, Normal Mood Assessment and Plan - Assessment and Plan (Free Text) Assessment: 68 y/o female seen and evaluated for Right hallucal toe gangrene Plan: Patient seen and evaluated at bedside Plan discussed with Dr. Dior Chart, labs and vitals reviewed- afebrile at this time Foot X-ray: soft tissue swelling noted, MRI recommended LE US: severely decreased perfusion noted to the RLE, arterial wall calcifications noted to the left As per podiatry recommendation, patient would most likely benefit from vascular intervention and a proximal surgery Podiatric surgical intervention not recommended at this time Wound cleased and dressed with Dakin's solution wet to dry, Q12 Podiatry will continue to follow patient while in house
[2018-05-16] MEDS: metroNIDAZOLE IV 500 mg/100 ml 250 MG in Premixed IV 1 EA IVPB SCH ×3 (06:26→21:54)
--- NOTE | 2018-05-16 07:24 | CP.PCM.PN ---
Subjective - Date & Time of Evaluation Date of Evaluation: 05/16/18 Time of Evaluation: 07:24 - Subjective Subjective: PGY2- Progress note for Dr. Denis Patient was seen and examined at bedside in no acute distress. Patient states she is feeling well and has no complaints today. Patient denies chest pain, palpitations, nausea, vomiting, fevers, headache dyspnea, dysuria, constipation, and diarrhea. Patient is NPO for angio today. Objective - Vital Signs/Intake and Output Vital Signs (last 24 hours): Temp Pulse Resp BP Pulse Ox 98.7 F 67 18 145/74 96 05/15/18 23:30 05/15/18 23:30 05/15/18 23:30 05/15/18 23:30 05/15/18 23:30 Intake and Output: 05/16/18 05/16/18 06:59 18:59 Intake Total 750 Output Total 250 Balance 500 - Medications Medications: Current Medications Carvedilol (Coreg) 3.125 mg PO BID [facility] Last Admin: 05/15/18 17:26 Dose: 3.125 mg Dextrose (Dextrose 50% Inj) 0 ml IV STAT PRN; Protocol PRN Reason: Hypoglycemia Protocol Dextrose (Glutose 15) 0 gm PO ONCE PRN; Protocol PRN Reason: Hypoglycemia Protocol Epoetin Etienne (Procrit) 4,000 unit IV TTS [facility] Last Admin: 05/15/18 12:00 Dose: 4,000 unit Glucagon (Glucagen Diagnostic Kit) 0 mg IM STAT PRN; Protocol PRN Reason: Hypoglycemia Protocol Metronidazole 250 mg/ (Miscellaneous) 50 mls @ 100 mls/hr IVPB Q8H [facility]; Protocol Last Admin: 05/16/18 06:26 Dose: 100 mls/hr Cefepime HCl 1 gm/ Dextrose 50 mls @ 100 mls/hr IVPB Q24H [facility]; Protocol Last Admin: 05/15/18 21:29 Dose: 100 mls/hr Insulin Human Regular (Novolin R) 0 unit SC ACHS [facility]; Protocol Last Admin: 05/15/18 21:32 Dose: Not Given Losartan Potassium (Cozaar) 100 mg PO QPM [facility] Last Admin: 05/15/18 17:26 Dose: 100 mg Sevelamer Carbonate (Renvela) 800 mg PO TIDCC [facility] Last Admin: 05/15/18 17:26 Dose: 800 mg Sodium Hypochlorite (Dakins Solution 0.125%) 1 appl TOP Q12 [facility] Last Admin: 05/15/18 22:48 Dose: 1 appl Vitamin B Complex/Vit C/Folic Acid (Nephro-Naren) 1 tab PO 0800 [facility] Last Admin: 05/15/18 09:10 Dose: Not Given - Labs Labs: 05/15/18 06:59 05/15/18 06:59 PT 12.6 SECONDS (9.7-12.2) H 05/13/18 07:46 INR 1.2 05/13/18 07:46 APTT 34 SECONDS (21-34) 05/13/18 07:46 - Additional Findings Additional findings: - Constitutional Appears: No Acute Distress - Head Exam Head Exam: NORMAL INSPECTION - Eye Exam Eye Exam: EOMI, Normal appearance - ENT Exam ENT Exam: Mucous Membranes Moist - Respiratory Exam Respiratory Exam: Clear to Ausculation Bilateral, NORMAL BREATHING PATTERN. absent: Rhonchi, Wheezes, Respiratory Distress - Cardiovascular Exam Cardiovascular Exam: REGULAR RHYTHM, +S1, +S2 - GI/Abdominal Exam GI & Abdominal Exam: Soft, Normal Bowel Sounds. absent: Distended, Firm, Guarding, Tenderness - Extremities Exam Extremities Exam: absent: Pedal Edema, Tenderness Additional comments: RLE- dressing clean, dry, intact - Neurological Exam Neurological Exam: Alert, Awake, Oriented x3 - Psychiatric Exam Psychiatric exam: Normal Affect, Normal Mood - Skin Skin Exam: Dry, Normal Color, Warm Assessment and Plan - Assessment and Plan (Free Text) Plan: Gangrene of toe - Podiatry consult- Dr. Dior. recs appreciated. * Podiatric surgical intervention not recommended at this time * Wound cleansed and dressed with Dakin's solution wet to dry, Q12 - Vascular sx consult- Dr. Romero. recs appreciated. - ID consult- Dr. Nunez. recs appreciated. - Foot X-ray: soft tissue swelling noted, MRI recommended - LE US: severely decreased perfusion noted to the RLE; arterial wall calcifications noted to the left - Blood cx x2: negative to date - Wound cx: + proteus mirabilis citrobacter freudii - Cefepim 1g IV Q24h - Flagyl 250mg IV Q8 h - CT angio with runoff: f/u PVD - Vascular surgery consult- Dr. Romero. recs appreciated. - LE US: severely decreased perfusion noted to the RLE; arterial wall calcifications noted to the left - CT angio with runoff: f/u ESRD on Dialysis - Nephrology consult- Dr. Caro; help appreciated - Continue Nephrovite, Sevelamer - Losartan 100mg QPM - Continue dialysis TTS Diabetes Mellitus - HGB a1c 6.7 - ISS - Hypoglycemia protocol - Accuchecks CAD - Continue Coreg 3.125mg PO BID - Cardio consult- Dr. Ledesma. recs appreciated. CHF - Cardio consult- Dr. Ledesma; recs appreciated. - Continue Coreg 3.125mg PO BID Anemia - Likely secondary to CKD - Procrit 4000 IV TTS - Transfusions as needed Hypertension - Continue Losartan 100mg QPM Prophylaxis - Heart healthy diet - PT/OT All management/orders per Dr. Denis.
--- NOTE | 2018-05-16 07:32 | CP.PCM.PN ---
Subjective - Date & Time of Evaluation Date of Evaluation: 05/15/18 Time of Evaluation: 17:20 - Subjective Subjective: Patient was seen and examined at bedside in no acute distress. Patient has no complaints today. Patient denies chest pain, palpitations, nausea, vomiting, fevers, headache dyspnea, dysuria, constipation, and diarrhea. No acute events overnight noted. Objective - Vital Signs/Intake and Output Vital Signs (last 24 hours): Temp Pulse Resp BP Pulse Ox 97.6 F 55 L 20 149/78 95 05/15/18 07:00 05/15/18 07:00 05/15/18 07:00 05/15/18 07:00 05/15/18 07:00 - Medications Medications: Current Medications Carvedilol (Coreg) 3.125 mg PO BID [facility] Last Admin: 05/14/18 17:33 Dose: 3.125 mg Dextrose (Dextrose 50% Inj) 0 ml IV STAT PRN; Protocol PRN Reason: Hypoglycemia Protocol Dextrose (Glutose 15) 0 gm PO ONCE PRN; Protocol PRN Reason: Hypoglycemia Protocol Epoetin Etienne (Procrit) 4,000 unit IV TTS [facility] Last Admin: 05/13/18 12:20 Dose: 4,000 unit Glucagon (Glucagen Diagnostic Kit) 0 mg IM STAT PRN; Protocol PRN Reason: Hypoglycemia Protocol Dextrose (Dextrose 5% In Water 1000 Ml) 1,000 mls @ 0 mls/hr IV .Q0M PRN; Protocol PRN Reason: Hypoglycemia Protocol Metronidazole 250 mg/ (Miscellaneous) 50 mls @ 100 mls/hr IVPB Q8H [facility]; Protocol Last Admin: 05/15/18 05:42 Dose: 100 mls/hr Cefepime HCl 1 gm/ Dextrose 50 mls @ 100 mls/hr IVPB Q24H [facility]; Protocol Last Admin: 05/14/18 21:54 Dose: 100 mls/hr Insulin Human Regular (Novolin R) 0 unit SC ACHS [facility]; Protocol Last Admin: 05/14/18 21:48 Dose: Not Given Losartan Potassium (Cozaar) 100 mg PO QPM [facility] Last Admin: 05/14/18 17:33 Dose: 100 mg Sevelamer Carbonate (Renvela) 800 mg PO TIDCC [facility] Last Admin: 05/14/18 17:33 Dose: 800 mg Sodium Hypochlorite (Dakins Solution 0.125%) 1 appl TOP Q12 [facility] Last Admin: 05/14/18 21:57 Dose: 1 appl Vitamin B Complex/Vit C/Folic Acid (Nephro-Naren) 1 tab PO 0800 [facility] Last Admin: 05/14/18 08:52 Dose: 1 tab - Labs Labs: 05/15/18 06:59 05/15/18 06:59 PT 12.6 SECONDS (9.7-12.2) H 05/13/18 07:46 INR 1.2 05/13/18 07:46 APTT 34 SECONDS (21-34) 05/13/18 07:46 - Constitutional Appears: No Acute Distress - Head Exam Head Exam: NORMAL INSPECTION - Eye Exam Eye Exam: EOMI, Normal appearance - ENT Exam ENT Exam: Mucous Membranes Moist - Respiratory Exam Respiratory Exam: Clear to Ausculation Bilateral, NORMAL BREATHING PATTERN. absent: Rhonchi, Wheezes, Respiratory Distress - Cardiovascular Exam Cardiovascular Exam: REGULAR RHYTHM, +S1, +S2 - GI/Abdominal Exam GI & Abdominal Exam: Soft, Normal Bowel Sounds. absent: Distended, Firm, Guarding, Tenderness - Extremities Exam Extremities Exam: absent: Pedal Edema, Tenderness Additional comments: RLE- dressing clean, dry, intact - Neurological Exam Neurological Exam: Alert, Awake, Oriented x3 - Psychiatric Exam Psychiatric exam: Normal Affect, Normal Mood - Skin Skin Exam: Dry, Normal Color, Warm Assessment and Plan - Assessment and Plan (Free Text) Plan: Gangrene of toe - Podiatry consult- Dr. Dior. recs appreciated. - Vascular sx consult- Dr. Romero. recs appreciated. - ID consult- Dr. Nunez. recs appreciated. - Blood cx x2: negative to date - Wound cx: + proteus mirabilis citrobacter freudii - Cefepim 1g IV Q24h - Flagyl 250mg IV Q8 h - CT angio with runoff: f/u - ABIs: f/u PVD - Vascular surgery consult- Dr. Romero. recs appreciated. - CT angio with runoff: f/u - ABIs: f/u ESRD on Dialysis - Nephrology consult- Dr. Caro; help appreciated - Continue Nephrovite, Sevelamer - Losartan 100mg QPM - Continue dialysis TTS Diabetes Mellitus - HGB a1c 6.7 - ISS - Hypoglycemia protocol - Accuchecks CAD - Continue Coreg 3.125mg PO BID CHF. - Continue Coreg 3.125mg PO BID Anemia - Likely secondary to CKD - Procrit 4000 IV TTS - Transfusions as needed Hypertension - Continue losartan daily Prophylaxis - Heart healthy diet - PT/OT Objective - Vital Signs/Intake and Output Vital Signs (last 24 hours): Temp Pulse Resp BP Pulse Ox 98.7 F 67 18 145/74 96 05/15/18 23:30 05/15/18 23:30 05/15/18 23:30 05/15/18 23:30 05/15/18 23:30 Intake and Output: 05/16/18 05/16/18 06:59 18:59 Intake Total 750 Output Total 250 Balance 500 - Medications Medications: Current Medications Carvedilol (Coreg) 3.125 mg PO BID [facility] Last Admin: 05/15/18 17:26 Dose: 3.125 mg Dextrose (Dextrose 50% Inj) 0 ml IV STAT PRN; Protocol PRN Reason: Hypoglycemia Protocol Dextrose (Glutose 15) 0 gm PO ONCE PRN; Protocol PRN Reason: Hypoglycemia Protocol Epoetin Etienne (Procrit) 4,000 unit IV TTS [facility] Last Admin: 05/15/18 12:00 Dose: 4,000 unit Glucagon (Glucagen Diagnostic Kit) 0 mg IM STAT PRN; Protocol PRN Reason: Hypoglycemia Protocol Metronidazole 250 mg/ (Miscellaneous) 50 mls @ 100 mls/hr IVPB Q8H [facility]; Protocol Last Admin: 05/16/18 06:26 Dose: 100 mls/hr Cefepime HCl 1 gm/ Dextrose 50 mls @ 100 mls/hr IVPB Q24H [facility]; Protocol Last Admin: 05/15/18 21:29 Dose: 100 mls/hr Insulin Human Regular (Novolin R) 0 unit SC ACHS [facility]; Protocol Last Admin: 05/15/18 21:32 Dose: Not Given Losartan Potassium (Cozaar) 100 mg PO QPM [facility] Last Admin: 05/15/18 17:26 Dose: 100 mg Sevelamer Carbonate (Renvela) 800 mg PO TIDCC [facility] Last Admin: 05/15/18 17:26 Dose: 800 mg Sodium Hypochlorite (Dakins Solution 0.125%) 1 appl TOP Q12 [facility] Last Admin: 05/15/18 22:48 Dose: 1 appl Vitamin B Complex/Vit C/Folic Acid (Nephro-Naren) 1 tab PO 0800 [facility] Last Admin: 05/15/18 09:10 Dose: Not Given - Labs Labs: 05/15/18 06:59 05/15/18 06:59 PT 12.6 SECONDS (9.7-12.2) H 05/13/18 07:46 INR 1.2 05/13/18 07:46 APTT 34 SECONDS (21-34) 05/13/18 07:46
[2018-05-16] MEDS: (Novolin R) Insulin Human Regular 100 units/ml vial SC SCH ×4 (07:41→21:54)
[2018-05-16] MEDS: Multivitamin Vitamin B Complex (Nephro-Vite) Tab PO SCH (10:24)
--- NOTE | 2018-05-16 12:03 | CT ---
Date of service: 05/12/2018 PROCEDURE: CT Angiography Abdomen, Pelvis and Lower Extremity with Contrast HISTORY: R toe gangrene COMPARISON: None. TECHNIQUE: Technique: CT angiography of the abdomen, pelvis and bilateral lower extremities performed in the arterial phase of enhancement. Coronal and sagittal reformats, and well as rotating MIP images of the vessels generated at the workstation. Intravenous contrast dose: 100 mL Visipaque 320 Radiation dose: Total exam DLP = 3268.06 mGy-cm. This CT exam was performed using one or more of the following dose reduction techniques: Automated exposure control, adjustment of the mA and/or kV according to patient size, and/or use of iterative reconstruction technique. FINDINGS: CT ANGIOGRAPHY: ABDOMINAL AORTA:: No abdominal aortic aneurysm. Scattered calcifications along the wall of the abdominal aorta and its main branches. MAJOR AORTIC BRANCHES: Celiac [place]: Unremarkable. Superior mesenteric artery: Unremarkable. Inferior mesenteric artery: Unremarkable. Renal arteries: Unremarkable. PELVIC ARTERIES: The right common iliac, external and internal iliac arteries demonstrate patency with diffuse multifocal areas of calcifications. The left common iliac, external and internal iliac arteries demonstrate patency with diffuse multifocal areas of calcifications. RIGHT LOWER EXTREMITY ARTERIES: Right Common Femoral: Patent with [id number] narrowing with calcified and noncalcified plaque. Right Superficial Femoral: Patent with multifocal areas of moderate to severe narrowing particularly in the middle and distal segments with calcified and noncalcified plaque. Right Profunda Femoris: Patent. Right Popliteal:Patent with multifocal areas of moderate to severe narrowing due to calcified and noncalcified plaque. Right Anterior Tibial: Demonstrates minimal patency in the proximal segment however an arterial collateral reconstitutes the artery distally which continues to the level of the distal calf. Right Tibioperoneal Trunk: Demonstrates minimal patency with multifocal areas of severe narrowing. Right Posterior Tibial: Artery is occluded in the proximal segment however demonstrates diminutive flow in the distal calf after being reconstituted for short segment. Right Peroneal: Occluded proximally however reconstituted in the mid to distal calf. Right dorsalis pedis : Patent. LEFT LOWER EXTREMITY ARTERIES: Left Common Femoral: Patent with mild to moderate narrowing with calcified and noncalcified plaque. Left Superficial Femoral: Multifocal areas of moderate to severe narrowing due to calcified and noncalcified plaque in the mid segment. Stent noted in the distal segment which appears patent. Left Profunda Femoris: Patent. Left Popliteal: Patent with multifocal areas of moderate to severe narrowing due to calcified and noncalcified plaque. Left Anterior Tibial: Occluded/minimal flow. Left Tibioperoneal Trunk: Patent. Left Posterior Tibial: Patent. Left Peroneal: Occluded/minimal flow. Left Dorsalis pedis: Patent, likely reconstituted from collateral vessels. NON-ANGIOGRAPHIC ASPECT OF THE EXAM: LOWER THORAX: 4 millimeter nodule along the horizontal fissure (image 9, series 2. Atelectatic changes in the lung bases. The heart is mildly enlarged. No significant pericardial effusion. Short borderline enlargement of the pulmonary artery measuring up to 2.9 centimeters. LIVER: Limited visualization of the peripheral aspect of the right hepatic lobe due to extensive streak artifacts. Sub centimeter hypodensity seen in the segment 6 of the right hepatic lobe, indeterminate. GALLBLADDER AND BILE DUCTS: Sludge/calculi seen in the dependent aspect of the gallbladder. No intra or extrahepatic biliary ductal dilatation. PANCREAS: Unremarkable. No gross lesion or ductal dilatation. SPLEEN: Unremarkable. ADRENALS: Nodular thickening of the left adrenal gland with the largest nodule measuring approximately 7 millimeters. KIDNEYS AND URETERS: Both kidneys enhance symmetrically. Mild bilateral perinephric stranding, nonspecific. No hydronephrosis or hydroureter. There is a hypodense structure measuring approximately 2.3 centimeters in the lower pole of the right kidney with internal attenuation of approximately 11.3 Hounsfield units. This could likely represent a cyst. Follow-up should be obtained with ultrasound. STOMACH AND BOWEL: Limited evaluation of the stomach and bowel due to no oral contrast. Small hiatal hernia. The stomach appears minimally distended. Possible small duodenal diverticulum in 2nd portion of the duodenum. No bowel obstruction. Colon is mildly distended limiting evaluation further. APPENDIX: Normal appendix. PERITONEUM: Unremarkable. No free fluid. No free air. LYMPH NODES: Minimally prominent lymph nodes in the inguinal region right greater than left. BLADDER: Minimally distended limiting evaluation. REPRODUCTIVE: Please note that evaluation of gynecologic organs is not optimal on CT imaging. BONES: Osteopenia. Degenerative changes involving the spine. Mild degenerative changes involving the hips and knees bilaterally. OTHER FINDINGS: Ventral hernia with loops of small bowel within it. No evidence of bowel obstruction. Calcifications in the posterior soft tissues seen bilaterally. IMPRESSION: Right lower extremity: 1. Right common femoral artery demonstrates patency with mild to moderate narrowing with calcified and noncalcified plaque. The superficial femoral artery demonstrates multifocal areas of moderate to severe narrowing to clearly in the middle and distal segments. P opliteal artery is patent with multifocal areas of moderate to severe narrowing. 2. Below-knee arteries demonstrate minimal patency. The right anterior tibial artery reconstitutes in the mid segment of the calf and continues to the level of the ankle. The right tibioperoneal trunk/posterior tibial artery and the peroneal arteries demonstrate occlusion/diminutive flow. Left lower extremity: 3. Left common femoral artery demonstrates patency with [id number] narrowing. The left superficial femoral artery demonstrates multifocal areas of moderate to severe narrowing. Distal superficial artery stents demonstrates patency. InStent stenosis cannot be entirely excluded. Left popliteal artery demonstrates patency with multifocal areas of moderate to severe narrowing. 4. Left tibioperoneal trunk the posterior tibial artery appears patent. Occluded/minimal flow within the anterior tibial and peroneal arteries. Non angiographic evaluation: 5. Small hiatal hernia. No bowel obstruction. Please note that the bowel is suboptimally evaluated. 6. Ventral hernia with loops of small bowel within it. 7. Presumed cyst in the lower pole of the right kidney. Follow-up with ultrasound recommended. 8. Nodular thickening of the left adrenal gland the largest nodule measuring 7 millimeters. Follow-up should be obtained as per clinical indications. 9. Indeterminate sub centimeter hypodensity in the liver segment 6. Follow-up can be obtained. 10. 4 millimeter nodule along the heart chondral fissure of the right middle lobe. Follow-up chest CT in 6 months recommended.
[2018-05-16] MEDS ORDERED: Iodixanol 320 MG/ML 200 ML BOTTLE IV ONE (12:09)
[2018-05-16] MEDS ORDERED: Iodixanol 320 MG/ML 100 ML BOTTLE IV ONE ×2 (12:12→12:38)
[2018-05-16 12:21] LABS: CALCIUM 8.5 mg/dl (8.6-10.4)
[2018-05-16] MEDS ORDERED: Midazolam 2 MG/2 ML VIAL ONE (12:22)
[2018-05-16] MEDS ORDERED: ePHEDrine 50 mg/ml Inj ONE (12:23)
[2018-05-16] MEDS ORDERED: Phenylephrine 10 mg/ml Inj ONE (12:23)
--- NOTE | 2018-05-16 12:24 | CP.PCM.PN ---
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 Continue with Nephrovite 1 tab/day. pt had severe allergic reaction to polysulphone dialyzers (cardiac arrest) in past, hence uses only [place] Exeltra. PRBC as needed for anemia. on [place] with dialysis as last Hb 9.7 Continue with phos binders, last phos level: 3.8 BP control with meds as ordered. Patient on RAAS kam as losartan Glycemic control, Dialysis consistent diet Further work up/management as per primary team Dose meds/antibiotics (if needed) for ESRD status. Avoid fleets enema/magnesium based laxatives. Thanks for allowing me to participate in care of your patient. Will follow patient with you. Please call if any Qs. had d/w team Dr Juan Torres Office: [phone] Chief Complaint;RT toe wound HPI: Pt is a 68 F with hx of ESRD on hemodialysis (TTS) via AVF @ [facility], last dialysis Sat, chronic anemia, hyperphosphatemia, secondary hyperparathyroidism, Diabetes Mellitus, hypertension, CHF, PVD, obesity prese nted with complaints of Rt foot great toe infection and wound. pt is being seen by vascular as well Renal consult requested for ESRD management. pt denies any other complaints at this time ROS: Cardiovascular: No chest pain. Pulmonary: No shortness of breath Gastrointestinal: denies abdominal pain No nausea. No vomiting. Genitourinary: No pain while urinating. Denies blood in urine. All other negative except as mentioned in HPI Physical Examination: General Appearance: Comfortable, in no acute respiratory distress, co-operative . Vitals reviewed and noted as below Head; Atraumatic, normocephalic ENT: no ulcers no thrush. Tongue is midline. Oropharynx: no rash or ulcers. EYES: Pupils are equal, round and reactive to light accommodation. Eye muscles and extraocular movement intact. Sclera is anicteric. Neck; supple no lymphadenopathy, no thyromegaly or bruit Lungs: Normal respiratory rate/effort. Breath sounds bilateral equal and clear Heart: Normal rate. s1s2 normal. No rub or gallop. Extremities: pedal edema +. No varicose veins. Rt foot in dressing Neurological: Patient is alert, awake and oriented to person, place and time. No focal deficit. Strength bilateral appropriate and equal Skin: Warm and dry. Normal turgor. No rash. Palpitation: Normal elasticity for age Abdomen: Abdomen is soft. Bowel sounds +. There is no abdominal tenderness, no guarding/rigidity or organomegaly Psych: normal insight and normal affect/mood MSK: no joint tenderness or swelling. Digits and nails normal, no deformity : kidney or bladder not palpable Access: AVF Labs/imaging reviewed. Past medical history, past surgical history, family history, social history, allergy reviewed and noted as below Family Hx: no hx of CKD. Non contributory Objective - Vital Signs/Intake and Output Vital Signs (last 24 hours): Temp Pulse Resp BP Pulse Ox 97.5 F L 68 20 152/68 H 98 05/16/18 07:33 05/16/18 10:25 05/16/18 07:33 05/16/18 10:25 05/16/18 07:33 Intake and Output: 05/16/18 05/16/18 06:59 18:59 Intake Total 750 Output Total 250 Balance 500 - Medications Medications: Current Medications Carvedilol (Coreg) 3.125 mg PO BID [facility] Last Admin: 05/16/18 10:25 Dose: 3.125 mg Dextrose (Dextrose 50% Inj) 0 ml IV STAT PRN; Protocol PRN Reason: Hypoglycemia Protocol Dextrose (Glutose 15) 0 gm PO ONCE PRN; Protocol PRN Reason: Hypoglycemia Protocol Epoetin Etienne (Procrit) 8,000 unit IV TTS [facility] Glucagon (Glucagen Diagnostic Kit) 0 mg IM STAT PRN; Protocol PRN Reason: Hypoglycemia Protocol Metronidazole 250 mg/ (Miscellaneous) 50 mls @ 100 mls/hr IVPB Q8H [facility]; Protocol Last Admin: 05/16/18 06:26 Dose: 100 mls/hr Cefepime HCl 1 gm/ Dextrose 50 mls @ 100 mls/hr IVPB Q24H [facility]; Protocol Last Admin: 05/15/18 21:29 Dose: 100 mls/hr Insulin Human Regular (Novolin R) 0 unit SC ACHS [facility]; Protocol Last Admin: 05/16/18 11:08 Dose: Not Given Losartan Potassium (Cozaar) 100 mg PO QPM [facility] Last Admin: 05/15/18 17:26 Dose: 100 mg Sevelamer Carbonate (Renvela) 800 mg PO TIDCC [facility] Last Admin: 05/16/18 11:08 Dose: Not Given Sodium Hypochlorite (Dakins Solution 0.125%) 1 appl TOP Q12 [facility] Last Admin: 05/16/18 10:25 Dose: 1 appl Vitamin B Complex/Vit C/Folic Acid (Nephro-Naren) 1 tab PO 0800 [facility] Last Admin: 05/16/18 10:24 Dose: 1 tab - Labs Labs: 05/15/18 06:59 05/16/18 12:03 PT 12.6 SECONDS (9.7-12.2) H 05/13/18 07:46 INR 1.2 05/13/18 07:46 APTT 34 SECONDS (21-34) 05/13/18 07:46
--- NOTE | 2018-05-16 13:07 | PCM.SURG1 ---
Surgeon's Initial Post Op Note - Surgeon's Notes Surgeon: henrietta Youth Teacher: 0 Type of Anesthesia: IV Sedation Anesthesia Administered By: xena Pre-Operative Diagnosis: gangrene right foot Operative Findings: severe tibial disease. open to trifurcation. distally anteior tibial/dorsalis pedis reconstitute Post-Operative Diagnosis: same Operation Performed: aortofemoral angiogram. selective catherization of right femoral artery. no intervention Specimen/Specimens Removed: 0 Estimated Blood Loss: EBL {In ML}: 5 Blood Products Given: N/A Drains Used: No Drains Post-Op Condition: Good Date of Surgery/Procedure: 05/16/18 Time of Surgery/Procedure: 13:06
--- NOTE | 2018-05-16 20:01 | CP.PCM.PN ---
Subjective - Date & Time of Evaluation Date of Evaluation: 05/16/18 Time of Evaluation: 09:00 - Subjective Subjective: IV rx renewed s/p angioplasty cont rx Objective - Vital Signs/Intake and Output Vital Signs (last 24 hours): Temp Pulse Resp BP Pulse Ox 97.4 F L 73 20 172/90 H 93 L 05/16/18 16:40 05/16/18 16:40 05/16/18 16:40 05/16/18 16:40 05/16/18 16:40 - Medications Medications: Current Medications Carvedilol (Coreg) 3.125 mg PO BID [facility] Last Admin: 05/16/18 17:10 Dose: 3.125 mg Dextrose (Dextrose 50% Inj) 0 ml IV STAT PRN; Protocol PRN Reason: Hypoglycemia Protocol Dextrose (Glutose 15) 0 gm PO ONCE PRN; Protocol PRN Reason: Hypoglycemia Protocol Epoetin Etienne (Procrit) 8,000 unit IV TTS [facility] Glucagon (Glucagen Diagnostic Kit) 0 mg IM STAT PRN; Protocol PRN Reason: Hypoglycemia Protocol Metronidazole 250 mg/ (Miscellaneous) 50 mls @ 100 mls/hr IVPB Q8H [facility]; Protocol Last Admin: 05/16/18 14:48 Dose: Not Given Cefepime HCl 1 gm/ Dextrose 50 mls @ 100 mls/hr IVPB Q24H [facility]; Protocol Last Admin: 05/15/18 21:29 Dose: 100 mls/hr Insulin Human Regular (Novolin R) 0 unit SC ACHS [facility]; Protocol Last Admin: 05/16/18 17:11 Dose: Not Given Losartan Potassium (Cozaar) 100 mg PO QPM [facility] Last Admin: 05/16/18 17:10 Dose: 100 mg Sevelamer Carbonate (Renvela) 800 mg PO TIDCC [facility] Last Admin: 05/16/18 11:08 Dose: Not Given Sodium Hypochlorite (Dakins Solution 0.125%) 1 appl TOP Q12 [facility] Last Admin: 05/16/18 10:25 Dose: 1 appl Vitamin B Complex/Vit C/Folic Acid (Nephro-Naren) 1 tab PO 0800 [facility] Last Admin: 05/16/18 10:24 Dose: 1 tab - Labs Labs: 05/15/18 06:59 05/16/18 12:03 PT 12.6 SECONDS (9.7-12.2) H 05/13/18 07:46 INR 1.2 05/13/18 07:46 APTT 34 SECONDS (21-34) 05/13/18 07:46 - Constitutional Appears: Non-toxic, Chronically Ill - Head Exam Head Exam: NORMOCEPHALIC - Eye Exam Eye Exam: PERRL - ENT Exam ENT Exam: Mucous Membranes Dry - Neck Exam Neck Exam: Full ROM - Respiratory Exam Respiratory Exam: Decreased Breath Sounds - Cardiovascular Exam Cardiovascular Exam: REGULAR RHYTHM - GI/Abdominal Exam GI & Abdominal Exam: Soft - Rectal Exam Rectal Exam: Deferred - Exam Exam: NORMAL INSPECTION - Extremities Exam Extremities Exam: Pedal Edema, Tenderness - Neurological Exam Neurological Exam: Alert - Psychiatric Exam Psychiatric exam: Depressed - Skin Skin Exam: Dry Assessment and Plan (1) Diabetic foot infection Status: Acute (2) Diabetic infection of right foot Status: Acute - Assessment and Plan (Free Text) Assessment: s/p angio iv antibiotics for gangrenous digit podiatry following
--- NOTE | 2018-05-17 05:00 | VAS ---
DATE: 05/16/2018 OPERATIVE ANGIOGRAM REPORT PREOPERATIVE DIAGNOSIS: Gangrene, right foot. POSTOPERATIVE DIAGNOSIS: Gangrene, right foot. PROCEDURE CARRIED OUT: Aortofemoral angiogram via left groin with selective catheterization of right femoral artery. No intervention. SURGEON: Devon Romero Jr., MD AROMATHERAPIST: None. ANESTHESIOLOGIST: Dr. Andre INDICATIONS: The patient is a 68-year-old woman with gangrene of the right toe. OPERATIVE FINDINGS: The aorta and renal arteries were free of significant occlusive disease. Both iliac arteries were widely patent. Common femoral artery was patent. Proximal portion of the superficial femoral artery on both legs down to the trifurcation were opened. On the left leg due to the body habitus, we did not image below the knee. On the right leg, there was occlusion of trifurcation with reconstitution of the mid calf of a segment of the anterior tibial and peroneal as well as segments of the posterior tibial reconstituted to the dorsal pedis artery. No intervention was undertaken. . The patient is a candidate for bypass. Her general condition is satisfactory. Perclose device was then deployed in the left groin. Devon Romero Jr., MD
[2018-05-17] MEDS: metroNIDAZOLE IV 500 mg/100 ml 250 MG in Premixed IV 1 EA IVPB SCH ×3 (05:39→22:15)
[2018-05-17 08:17] LABS: BASO # 0.1 K/uL (0.0-0.2); BASO % 0.6 % (0.0-2.0); EOS # 0.2 K/uL (0.0-0.7); EOS % 2.1 % (0.0-4.0); HEMOGLOBIN 9.7 g/dL (11.0-16.0); LYMPH # 1.4 K/uL (1.0-4.3); LYMPH % 15.4 % (20.0-40.0); MEAN CELL VOLUME 99.8 fL (81.0-99.0); MEAN CORPUSCULAR HEMOGLOBIN 33.6 pg (27.0-31.0); MEAN CORPUSCULAR HGB CONC 33.7 g/dL (33.0-37.0); MEAN PLATELET VOLUME 7.9 fL (7.2-11.7); MONO # 0.9 K/uL (0.0-0.8); MONO % 10.1 % (0.0-10.0); NEUT # 6.6 K/uL (1.8-7.0); NEUT % 71.8 % (50.0-75.0); RBC 2.88 Mil/uL (3.80-5.20); WHITE BLOOD COUNT 9.2 K/uL (4.8-10.8)
[2018-05-17 08:26] LABS: ALB/GLOB RATIO 0.9 (1.0-2.1); CALCIUM 8.3 mg/dl (8.6-10.4)
[2018-05-17] MEDS: (Novolin R) Insulin Human Regular 100 units/ml vial SC SCH ×4 (09:13→22:16)
[2018-05-17] MEDS: Multivitamin Vitamin B Complex (Nephro-Vite) Tab PO SCH (09:14)
--- NOTE | 2018-05-17 09:33 | CP.PCM.PN ---
Subjective - Date & Time of Evaluation Date of Evaluation: 05/17/18 Time of Evaluation: 07:00 - Subjective Subjective: VASCULAR SURGERY PROGRESS NOTE FOR DR. UGALDE Patient seen and examined at bedside. She denies leg or foot pain. Objective - Vital Signs/Intake and Output Vital Signs (last 24 hours): Temp Pulse Resp BP Pulse Ox 98.3 F 67 18 130/73 96 05/17/18 08:04 05/17/18 08:04 05/17/18 08:04 05/17/18 08:04 05/17/18 08:04 - Medications Medications: Current Medications Carvedilol (Coreg) 3.125 mg PO BID [facility] Last Admin: 05/17/18 09:28 Dose: Not Given Dextrose (Dextrose 50% Inj) 0 ml IV STAT PRN; Protocol PRN Reason: Hypoglycemia Protocol Dextrose (Glutose 15) 0 gm PO ONCE PRN; Protocol PRN Reason: Hypoglycemia Protocol Epoetin Etienne (Procrit) 8,000 unit IV TTS [facility] Glucagon (Glucagen Diagnostic Kit) 0 mg IM STAT PRN; Protocol PRN Reason: Hypoglycemia Protocol Metronidazole 250 mg/ (Miscellaneous) 50 mls @ 100 mls/hr IVPB Q8H [facility]; Protocol Last Admin: 05/17/18 05:39 Dose: 100 mls/hr Cefepime HCl 1 gm/ Dextrose 50 mls @ 100 mls/hr IVPB Q24H [facility]; Protocol Last Admin: 05/16/18 22:36 Dose: 100 mls/hr Insulin Human Regular (Novolin R) 0 unit SC ACHS [facility]; Protocol Last Admin: 05/17/18 09:13 Dose: 1 units Losartan Potassium (Cozaar) 100 mg PO QPM [facility] Last Admin: 05/16/18 17:10 Dose: 100 mg Sevelamer Carbonate (Renvela) 800 mg PO TIDCC [facility] Last Admin: 05/17/18 09:14 Dose: 800 mg Sodium Hypochlorite (Dakins Solution 0.125%) 1 appl TOP Q12 [facility] Last Admin: 05/17/18 09:28 Dose: Not Given Vitamin B Complex/Vit C/Folic Acid (Nephro-Naren) 1 tab PO 0800 [facility] Last Admin: 05/17/18 09:14 Dose: 1 tab - Labs Labs: 05/17/18 08:03 05/17/18 08:03 PT 12.6 SECONDS (9.7-12.2) H 05/13/18 07:46 INR 1.2 05/13/18 07:46 APTT 34 SECONDS (21-34) 05/13/18 07:46 - Constitutional Appears: Non-toxic, No Acute Distress - Respiratory Exam Respiratory Exam: NORMAL BREATHING PATTERN. absent: Respiratory Distress - Cardiovascular Exam Cardiovascular Exam: +S1, +S2 - Extremities Exam Additional comments: Left groin dressing clean/dry/intact Bilateral feet warm - Neurological Exam Neurological Exam: Alert, Awake - Psychiatric Exam Psychiatric exam: Normal Affect, Normal Mood Assessment and Plan - Assessment and Plan (Free Text) Assessment: 68yo F with gangrene right foot. S/p aortofemoral angiogram w/ selective catherization of right femoral artery on 05/16. No intervention was done. Pt found to have severe tibial disease. Open to trifurcation. - FU vein mapping - May need pop-DP bypass pending vein mapping results - Discussed plan with Dr. Heather Olson PGY-4
--- NOTE | 2018-05-17 09:46 | CP.PCM.PN ---
Subjective - Date & Time of Evaluation Date of Evaluation: 05/16/18 Time of Evaluation: 19:25 - Subjective Subjective: Patient seen and examined at bedside. She denies leg or foot pain. Physical examination - Constitutional Appears: Non-toxic, No Acute Distress - Respiratory Exam Respiratory Exam: NORMAL BREATHING PATTERN. absent: Respiratory Distress - Cardiovascular Exam Cardiovascular Exam: +S1, +S2 - Extremities Exam Additional comments: Left groin dressing clean/dry/intact Bilateral feet warm - Neurological Exam Neurological Exam: Alert, Awake - Psychiatric Exam Psychiatric exam: Normal Affect, Normal Mood Assessment and Plan - Assessment and Plan (Free Text) Assessment: 68yo F with gangrene right foot. As per Dr. Romero S/p aortofemoral angiogram w/ selective catherization of right femoral artery on 05/16. No intervention was done. Pt found to have severe tibial disease. Open to trifurcation. Objective - Vital Signs/Intake and Output Vital Signs (last 24 hours): Temp Pulse Resp BP Pulse Ox 98.3 F 67 18 130/73 96 05/17/18 08:04 05/17/18 08:04 05/17/18 08:04 05/17/18 08:04 05/17/18 08:04 - Medications Medications: Current Medications Carvedilol (Coreg) 3.125 mg PO BID [facility] Last Admin: 05/17/18 09:28 Dose: Not Given Dextrose (Dextrose 50% Inj) 0 ml IV STAT PRN; Protocol PRN Reason: Hypoglycemia Protocol Dextrose (Glutose 15) 0 gm PO ONCE PRN; Protocol PRN Reason: Hypoglycemia Protocol Epoetin Etienne (Procrit) 8,000 unit IV TTS [facility] Glucagon (Glucagen Diagnostic Kit) 0 mg IM STAT PRN; Protocol PRN Reason: Hypoglycemia Protocol Metronidazole 250 mg/ (Miscellaneous) 50 mls @ 100 mls/hr IVPB Q8H [facility]; Protocol Last Admin: 05/17/18 05:39 Dose: 100 mls/hr Cefepime HCl 1 gm/ Dextrose 50 mls @ 100 mls/hr IVPB Q24H [facility]; Protocol Last Admin: 05/16/18 22:36 Dose: 100 mls/hr Insulin Human Regular (Novolin R) 0 unit SC ACHS [facility]; Protocol Last Admin: 05/17/18 09:13 Dose: 1 units Losartan Potassium (Cozaar) 100 mg PO QPM [facility] Last Admin: 05/16/18 17:10 Dose: 100 mg Sevelamer Carbonate (Renvela) 800 mg PO TIDCC [facility] Last Admin: 05/17/18 09:14 Dose: 800 mg Sodium Hypochlorite (Dakins Solution 0.125%) 1 appl TOP Q12 [facility] Last Admin: 05/17/18 09:28 Dose: Not Given Vitamin B Complex/Vit C/Folic Acid (Nephro-Naren) 1 tab PO 0800 [facility] Last Admin: 05/17/18 09:14 Dose: 1 tab - Labs Labs: 05/17/18 08:03 05/17/18 08:03 PT 12.6 SECONDS (9.7-12.2) H 05/13/18 07:46 INR 1.2 05/13/18 07:46 APTT 34 SECONDS (21-34) 05/13/18 07:46
[2018-05-17] MEDS: EPOETIN ALFA 4,000 UNIT/ML ML Dialysis IV SCH (13:36)
--- NOTE | 2018-05-17 14:28 | CP.PCM.PN ---
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 Continue with Nephrovite 1 tab/day. pt had severe allergic reaction to polysulphone dialyzers (cardiac arrest) in past, hence uses only Glover Exeltra. PRBC as needed for anemia. on [place] with dialysis as last Hb 9.7 Continue with phos binders, last phos level: 3.8 BP control with meds as ordered. Patient on RAAS kam as losartan Glycemic control, Dialysis consistent diet Further work up/management as per primary team Dose meds/antibiotics (if needed) for ESRD status. Avoid fleets enema/magnesium based laxatives. Thanks for allowing me to participate in care of your patient. Will follow patient with you. Please call if any Qs. had d/w team Dr Juan Torres Office: [phone] Chief Complaint;RT toe wound HPI: Pt is a 68 F with hx of ESRD on hemodialysis (TTS) via AVF @ [facility], last dialysis Sat, chronic anemia, hyperphosphatemia, secondary hyperparathyroidism, Diabetes Mellitus, hypertension, CHF, PVD, obesity presente d with complaints of Rt foot great toe infection and wound. pt is being seen by vascular as well Renal consult requested for ESRD management. pt denies any other complaints at this time ROS: Cardiovascular: No chest pain. Pulmonary: No shortness of breath Gastrointestinal: denies abdominal pain No nausea. No vomiting. Genitourinary: No pain while urinating. Denies blood in urine. All other negative except as mentioned in HPI Physical Examination: seen on HD General Appearance: Comfortable, in no acute respiratory distress, co-operative . Vitals reviewed and noted as below Head; Atraumatic, normocephalic ENT: no ulcers no thrush. Tongue is midline. Oropharynx: no rash or ulcers. EYES: Pupils are equal, round and reactive to light accommodation. Eye muscles and extraocular movement intact. Sclera is anicteric. Neck; supple no lymphadenopathy, no thyromegaly or bruit Lungs: Normal respiratory rate/effort. Breath sounds bilateral equal and clear Heart: Normal rate. s1s2 normal. No rub or gallop. Extremities: pedal edema +. No varicose veins. Rt foot in dressing Neurological: Patient is alert, awake and oriented to person, place and time. No focal deficit. Strength bilateral appropriate and equal Skin: Warm and dry. Normal turgor. No rash. Palpitation: Normal elasticity for age Abdomen: Abdomen is soft. Bowel sounds +. There is no abdominal tenderness, no guarding/rigidity or organomegaly Psych: normal insight and normal affect/mood MSK: no joint tenderness or swelling. Digits and nails normal, no deformity : kidney or bladder not palpable Access: AVF Labs/imaging reviewed. Past medical history, past surgical history, family history, social history, allergy reviewed and noted as below Family Hx: no hx of CKD. Non contributory Objective - Vital Signs/Intake and Output Vital Signs (last 24 hours): Temp Pulse Resp BP Pulse Ox 97.7 F 66 20 116/71 97 05/17/18 13:35 05/17/18 13:35 05/17/18 13:35 05/17/18 13:35 05/17/18 13:35 - Medications Medications: Current Medications Carvedilol (Coreg) 3.125 mg PO BID [facility] Last Admin: 05/17/18 09:28 Dose: Not Given Dextrose (Dextrose 50% Inj) 0 ml IV STAT PRN; Protocol PRN Reason: Hypoglycemia Protocol Dextrose (Glutose 15) 0 gm PO ONCE PRN; Protocol PRN Reason: Hypoglycemia Protocol Epoetin Etienne (Procrit) 8,000 unit IV TTS [facility] Last Admin: 05/17/18 13:36 Dose: 8,000 unit Glucagon (Glucagen Diagnostic Kit) 0 mg IM STAT PRN; Protocol PRN Reason: Hypoglycemia Protocol Metronidazole 250 mg/ (Miscellaneous) 50 mls @ 100 mls/hr IVPB Q8H [facility]; Protocol Last Admin: 05/17/18 05:39 Dose: 100 mls/hr Cefepime HCl 1 gm/ Dextrose 50 mls @ 100 mls/hr IVPB Q24H [facility]; Protocol Last Admin: 05/16/18 22:36 Dose: 100 mls/hr Insulin Human Regular (Novolin R) 0 unit SC ACHS [facility]; Protocol Last Admin: 05/17/18 13:09 Dose: Not Given Losartan Potassium (Cozaar) 100 mg PO QPM [facility] Last Admin: 05/16/18 17:10 Dose: 100 mg Sevelamer Carbonate (Renvela) 800 mg PO TIDCC [facility] Last Admin: 05/17/18 13:09 Dose: Not Given Sodium Hypochlorite (Dakins Solution 0.125%) 1 appl TOP Q12 [facility] Last Admin: 05/17/18 09:28 Dose: Not Given Vitamin B Complex/Vit C/Folic Acid (Nephro-Naren) 1 tab PO 0800 [facility] Last Admin: 05/17/18 09:14 Dose: 1 tab - Labs Labs: 05/17/18 08:03 05/17/18 08:03 PT 12.6 SECONDS (9.7-12.2) H 05/13/18 07:46 INR 1.2 05/13/18 07:46 APTT 34 SECONDS (21-34) 05/13/18 07:46
[2018-05-18] MEDS: metroNIDAZOLE IV 500 mg/100 ml 250 MG in Premixed IV 1 EA IVPB SCH ×3 (05:52→21:59)
[2018-05-18] MEDS: (Novolin R) Insulin Human Regular 100 units/ml vial SC SCH ×4 (08:10→22:00)
[2018-05-18] MEDS: Multivitamin Vitamin B Complex (Nephro-Vite) Tab PO SCH (08:10)
--- NOTE | 2018-05-18 10:15 | CP.PCM.PN ---
Subjective - Date & Time of Evaluation Date of Evaluation: 05/18/18 Time of Evaluation: 10:11 - Subjective Subjective: Podiatry progress note: Dr. Dior 68F seen and evaluated at bedside for R hallux dry gangrene. Patient resting comfortably and denies any pain at this time. Patient s/p aortofemoral angiogram, no intervention completed, with Dr. Romero on 05/16/18. She denies N/V/F/SOB/CP. Objective - Vital Signs/Intake and Output Vital Signs (last 24 hours): Temp Pulse Resp BP Pulse Ox 98.2 F 72 20 133/67 95 05/18/18 07:00 05/18/18 10:03 05/18/18 07:00 05/18/18 10:03 05/18/18 07:00 Intake and Output: 05/18/18 05/18/18 06:59 18:59 Output Total 300 Balance -300 - Medications Medications: Current Medications Carvedilol (Coreg) 3.125 mg PO BID [facility] Last Admin: 05/18/18 10:03 Dose: 3.125 mg Dextrose (Dextrose 50% Inj) 0 ml IV STAT PRN; Protocol PRN Reason: Hypoglycemia Protocol Dextrose (Glutose 15) 0 gm PO ONCE PRN; Protocol PRN Reason: Hypoglycemia Protocol Epoetin Etienne (Procrit) 8,000 unit IV TTS [facility] Last Admin: 05/17/18 13:36 Dose: 8,000 unit Glucagon (Glucagen Diagnostic Kit) 0 mg IM STAT PRN; Protocol PRN Reason: Hypoglycemia Protocol Heparin Sodium (Porcine) (Heparin) 2,000 units IVP [facility] Metronidazole 250 mg/ (Miscellaneous) 50 mls @ 100 mls/hr IVPB Q8H [facility]; Protocol Last Admin: 05/18/18 05:52 Dose: 100 mls/hr Insulin Human Regular (Novolin R) 0 unit SC ACHS [facility]; Protocol Last Admin: 05/18/18 08:10 Dose: 1 units Losartan Potassium (Cozaar) 100 mg PO QPM [facility] Last Admin: 05/17/18 18:15 Dose: 100 mg Sevelamer Carbonate (Renvela) 800 mg PO TIDCC [facility] Last Admin: 05/18/18 08:10 Dose: 800 mg Sodium Hypochlorite (Dakins Solution 0.125%) 1 appl TOP Q12 [facility] Last Admin: 05/17/18 22:16 Dose: 1 appl Vitamin B Complex/Vit C/Folic Acid (Nephro-Naren) 1 tab PO 0800 [facility] Last Admin: 05/18/18 08:10 Dose: 1 tab - Labs Labs: 05/17/18 08:03 05/17/18 08:03 PT 12.6 SECONDS (9.7-12.2) H 05/13/18 07:46 INR 1.2 05/13/18 07:46 APTT 34 SECONDS (21-34) 05/13/18 07:46 - Constitutional Appears: Non-toxic, No Acute Distress - Head Exam Head Exam: ATRAUMATIC - Extremities Exam Additional comments: LE focused exam: VASC: DP and PT non-palpable bilaterally, CFT delayed X 10, TG cool to cool, no edema noted NEURO: diminished sensation bilaterally DERM: gangrenous changes noted to the right hallux, no malodor appreciated, positive probe to bone, no drainage noted, no other open lesions noted, no clinical signs of infection noted ORTHO: patient denies pain at this time, MSK 5/5 - Neurological Exam Neurological Exam: Alert, Awake, Oriented x3 - Psychiatric Exam Psychiatric exam: Normal Affect, Normal Mood Assessment and Plan - Assessment and Plan (Free Text) Assessment: 68F seen and evaluated at bedside for R hallux dry gangrene. Plan: Patient seen and evaluated at bedside Plan discussed with Dr. Ovi MORAES, WBC 9.2 Foot X-ray: soft tissue swelling noted, MRI recommended Wound culture (05/12); Proteus, Citrobacter LE US: severely decreased perfusion noted to the RLE, arterial wall calcifications noted to the left As per podiatric surgery team recommendation, patient would most likely benefit from vascular intervention and a proximal surgery Podiatric surgical intervention not recommended at this time, will re-evaluated after vein mapping/vascular surgery reccs Per [facility] surgery: S/p aortofemoral angiogram w/ selective catherization of right femoral artery on 05/16. No intervention was done. Pt found to have severe tibial disease. Open to trifurcation. FU vein mapping. May need pop-DP bypass pending vein mapping results Wound cleased and dressed with Dakin's solution wet to dry, Q12 Will continue to follow patient while in house
--- NOTE | 2018-05-18 12:29 | CP.PCM.PN ---
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 Continue with Nephrovite 1 tab/day. pt had severe allergic reaction to polysulphone dialyzers (cardiac arrest) in past, hence uses only [place] Exeltra. PRBC as needed for anemia. on [place] with dialysis as last Hb 9.7 Continue with phos binders, last phos level: 3.8 BP control with meds as ordered. Patient on RAAS kam as losartan Glycemic control, Dialysis consistent diet Further work up/management as per primary team Dose meds/antibiotics (if needed) for ESRD status. Avoid fleets enema/magnesium based laxatives. Thanks for allowing me to participate in care of your patient. Will follow patient with you. Please call if any Qs. had d/w team Dr Juan Torres Office: [phone] Chief Complaint;RT toe wound HPI: Pt is a 68 F with hx of ESRD on hemodialysis (TTS) via AVF @ [facility], last dialysis Sat, chronic anemia, hyperphosphatemia, secondary hyperparathyroidism, Diabetes Mellitus, hypertension, CHF, PVD, obesity presented with complaints of Rt foot great toe infection and wound. pt is being seen by vascular as well Renal consult requested for ESRD management. pt denies any other complaints at this time ROS: Cardiovascular: No chest pain. Pulmonary: No shortness of breath Gastrointestinal: denies abdominal pain No nausea. No vomiting. Genitourinary: No pain while urinating. Denies blood in urine. All other negative except as mentioned in HPI Physical Examination: General Appearance: Comfortable, in no acute respiratory distress, co-operative . Vitals reviewed and noted as below Head; Atraumatic, normocephalic ENT: no ulcers no thrush. Tongue is midline. Oropharynx: no rash or ulcers. EYES: Pupils are equal, round and reactive to light accommodation. Eye muscles and extraocular movement intact. Sclera is anicteric. Neck; supple no lymphadenopathy, no thyromegaly or bruit Lungs: Normal respiratory rate/effort. Breath sounds bilateral equal and clear Heart: Normal rate. s1s2 normal. No rub or gallop. Extremities: pedal edema +. No varicose veins. Rt foot in dressing Neurological: Patient is alert, awake and oriented to person, place and time. No focal deficit. Strength bilateral appropriate and equal Skin: Warm and dry. Normal turgor. No rash. Palpitation: Normal elasticity for age Abdomen: Abdomen is soft. Bowel sounds +. There is no abdominal tenderness, no guarding/rigidity or organomegaly Psych: normal insight and normal affect/mood MSK: no joint tenderness or swelling. Digits and nails normal, no deformity : kidney or bladder not palpable Access: AVF Labs/imaging reviewed. Past medical history, past surgical history, family history, social history, allergy reviewed and noted as below Family Hx: no hx of CKD. Non contributory Objective - Vital Signs/Intake and Output Vital Signs (last 24 hours): Temp Pulse Resp BP Pulse Ox 98.2 F 72 20 133/67 95 05/18/18 07:00 05/18/18 10:03 05/18/18 07:00 05/18/18 10:03 05/18/18 07:00 Intake and Output: 05/18/18 05/18/18 06:59 18:59 Output Total 300 Balance -300 - Medications Medications: Current Medications Carvedilol (Coreg) 3.125 mg PO BID [facility] Last Admin: 05/18/18 10:03 Dose: 3.125 mg Dextrose (Dextrose 50% Inj) 0 ml IV STAT PRN; Protocol PRN Reason: Hypoglycemia Protocol Dextrose (Glutose 15) 0 gm PO ONCE PRN; Protocol PRN Reason: Hypoglycemia Protocol Epoetin Etienne (Procrit) 8,000 unit IV TTS [facility] Last Admin: 05/17/18 13:36 Dose: 8,000 unit Glucagon (Glucagen Diagnostic Kit) 0 mg IM STAT PRN; Protocol PRN Reason: Hypoglycemia Protocol Heparin Sodium (Porcine) (Heparin) 2,000 units IVP TTS [facility] Metronidazole 250 mg/ (Miscellaneous) 50 mls @ 100 mls/hr IVPB Q8H [facility]; Protocol Last Admin: 05/18/18 05:52 Dose: 100 mls/hr Insulin Human Regular (Novolin R) 0 unit SC ACHS [facility]; Protocol Last Admin: 05/18/18 08:10 Dose: 1 units Losartan Potassium (Cozaar) 100 mg PO QPM [facility] Last Admin: 05/17/18 18:15 Dose: 100 mg Sevelamer Carbonate (Renvela) 800 mg PO TIDCC [facility] Last Admin: 05/18/18 12:08 Dose: 800 mg Sodium Hypochlorite (Dakins Solution 0.125%) 1 appl TOP Q12 [facility] Last Admin: 05/17/18 22:16 Dose: 1 appl Vitamin B Complex/Vit C/Folic Acid (Nephro-Naren) 1 tab PO 0800 [facility] Last Admin: 05/18/18 08:10 Dose: 1 tab - Labs Labs: 05/17/18 08:03 05/17/18 08:03 PT 12.6 SECONDS (9.7-12.2) H 05/13/18 07:46 INR 1.2 05/13/18 07:46 APTT 34 SECONDS (21-34) 05/13/18 07:46
--- NOTE | 2018-05-18 17:46 | CP.PCM.PN ---
Subjective - Date & Time of Evaluation Date of Evaluation: 05/18/18 Time of Evaluation: 07:00 - Subjective Subjective: afeb alert c/o pain right foot nad Objective - Vital Signs/Intake and Output Vital Signs (last 24 hours): Temp Pulse Resp BP Pulse Ox 98.0 F 105 H 20 160/84 H 100 05/18/18 15:34 05/18/18 15:34 05/18/18 07:00 05/18/18 15:34 05/18/18 15:34 Intake and Output: 05/18/18 05/18/18 06:59 18:59 Output Total 300 Balance -300 - Medications Medications: Current Medications Carvedilol (Coreg) 3.125 mg PO BID [facility] Last Admin: 05/18/18 10:03 Dose: 3.125 mg Dextrose (Dextrose 50% Inj) 0 ml IV STAT PRN; Protocol PRN Reason: Hypoglycemia Protocol Dextrose (Glutose 15) 0 gm PO ONCE PRN; Protocol PRN Reason: Hypoglycemia Protocol Epoetin Etienne (Procrit) 8,000 unit IV TTS [facility] Last Admin: 05/17/18 13:36 Dose: 8,000 unit Glucagon (Glucagen Diagnostic Kit) 0 mg IM STAT PRN; Protocol PRN Reason: Hypoglycemia Protocol Heparin Sodium (Porcine) (Heparin) 2,000 units IVP TTS [facility] Metronidazole 250 mg/ (Miscellaneous) 50 mls @ 100 mls/hr IVPB Q8H [facility]; Protocol Last Admin: 05/18/18 14:20 Dose: 100 mls/hr Insulin Human Regular (Novolin R) 0 unit SC ACHS [facility]; Protocol Last Admin: 05/18/18 13:05 Dose: 3 units Losartan Potassium (Cozaar) 100 mg PO QPM [facility] Last Admin: 05/17/18 18:15 Dose: 100 mg Sevelamer Carbonate (Renvela) 800 mg PO TIDCC [facility] Last Admin: 05/18/18 12:08 Dose: 800 mg Sodium Hypochlorite (Dakins Solution 0.125%) 1 appl TOP Q12 [facility] Last Admin: 05/18/18 15:37 Dose: Not Given Vitamin B Complex/Vit C/Folic Acid (Nephro-Naren) 1 tab PO 0800 [facility] Last Admin: 05/18/18 08:10 Dose: 1 tab - Labs Labs: 05/17/18 08:03 05/17/18 08:03 PT 12.6 SECONDS (9.7-12.2) H 05/13/18 07:46 INR 1.2 05/13/18 07:46 APTT 34 SECONDS (21-34) 05/13/18 07:46 - Constitutional Appears: Non-toxic, Chronically Ill - Head Exam Head Exam: NORMOCEPHALIC - Eye Exam Eye Exam: absent: Scleral icterus - ENT Exam ENT Exam: Mucous Membranes Dry - Neck Exam Neck Exam: absent: Lymphadenopathy - Respiratory Exam Respiratory Exam: Decreased Breath Sounds - Cardiovascular Exam Cardiovascular Exam: REGULAR RHYTHM - GI/Abdominal Exam GI & Abdominal Exam: Distended Assessment and Plan (1) Diabetic foot infection Status: Acute (2) Diabetic infection of right foot Status: Acute
--- NOTE | 2018-05-18 18:25 | VASCLAB ---
Date of service: 05/16/2018 PROCEDURE: Lower Extremity Vein Mapping. HISTORY: PAD, Vein mapping,Pre op bypass. PRIORS: None. TECHNIQUE: Bilateral common femoral, femoral, popliteal and posterior tibial, peroneal and great saphenous veins were evaluated. Flow was assessed with color Doppler, compressibility, assessment of phasic flow and augmentation response. Report prepared by ERNIE Young FINDINGS: RIGHT: 1. Common Femoral Vein: Compressibility - Fully compressible: Thrombus - None : Flow - Phasic: Augmentation -Normal: Reflux - None. 2. Femoral Vein:Compressibility - Fully compressible: Thrombus - None 3. Popliteal Vein: Compressibility - Fully compressible: Thrombus - None 4. Posterior Tibial Vein: Compressibility - Fully compressible: Thrombus - None 5. Peroneal Vein:Compressibility - Fully compressible: Thrombus - None 6. Greater Saphenous Vein: Compressibility - Fully compressible: Thrombus - None 6.1. Thigh - Proximal Diameter: 0.60cm. Mid Diameter: 0.50cm. Distal Diameter: 0.53cm. 6.2. Calf - Proximal Diameter: 0.48cm. Mid Diameter:0.36cm. Distal Diameter: 0.42cm LEFT: 1. Common Femoral Vein: Could not be assessed optimally. 2. Femoral Vein:Compressibility - Fully compressible: Thrombus - None 3. Popliteal Vein: Compressibility - Fully compressible: Thrombus - None 4. Posterior Tibial Vein: Compressibility - Fully compressible: Thrombus - None 5. Peroneal Vein:Compressibility-Could not be assessed optimally. 6. Greater Saphenous Vein: Compressibility - Fully compressible: Thrombus - None 6.1. Thigh - Proximal Diameter: 0.62cm. Mid Diameter: 0.48cm. Distal Diameter: 0.48cm. 6.2. Calf - Proximal Diameter: 0.29cm. Mid Diameter:0.34cm. Distal Diameter: 0.32cm OTHER FINDINGS: No evidence of venous thrombosis bilaterally, as visualized. IMPRESSION: Refer to the above listed measurements for vein size.
--- NOTE | 2018-05-18 21:58 | CP.PCM.PN ---
Subjective - Date & Time of Evaluation Date of Evaluation: 05/18/18 Time of Evaluation: 18:20 - Subjective Subjective: Patient seen and examined at bedside. She denies leg or foot pain. Physical examination - Constitutional Appears: Non-toxic, No Acute Distress - Respiratory Exam Respiratory Exam: NORMAL BREATHING PATTERN. absent: Respiratory Distress - Cardiovascular Exam Cardiovascular Exam: +S1, +S2 - Extremities Exam Additional comments: Left groin dressing clean/dry/intact Bilateral feet warm - Neurological Exam Neurological Exam: Alert, Awake - Psychiatric Exam Psychiatric exam: Normal Affect, Normal Mood Assessment and Plan - Assessment and Plan (Free Text) Assessment: 68yo F with gangrene right foot. As per Dr. Romero S/p aortofemoral angiogram w/ selective catherization of right femoral artery on 05/16. No intervention was done. Pt found to have severe tibial disease. Open to trifurcation. Dr. Romero planning to do Vascular bypass Needs cardiac risk assessment Stress and ECHO in am Objective - Vital Signs/Intake and Output Vital Signs (last 24 hours): Temp Pulse Resp BP Pulse Ox 98.0 F 105 H 20 160/84 H 100 05/18/18 15:34 05/18/18 15:34 05/18/18 07:00 05/18/18 15:34 05/18/18 15:34 - Medications Medications: Current Medications Carvedilol (Coreg) 3.125 mg PO BID [facility] Last Admin: 05/18/18 17:55 Dose: 3.125 mg Dextrose (Dextrose 50% Inj) 0 ml IV STAT PRN; Protocol PRN Reason: Hypoglycemia Protocol Dextrose (Glutose 15) 0 gm PO ONCE PRN; Protocol PRN Reason: Hypoglycemia Protocol Epoetin Etienne (Procrit) 8,000 unit IV TTS [facility] Last Admin: 05/17/18 13:36 Dose: 8,000 unit Glucagon (Glucagen Diagnostic Kit) 0 mg IM STAT PRN; Protocol PRN Reason: Hypoglycemia Protocol Heparin Sodium (Porcine) (Heparin) 2,000 units IVP TTS [facility] Metronidazole 250 mg/ (Miscellaneous) 50 mls @ 100 mls/hr IVPB Q8H [facility]; Protocol Last Admin: 05/18/18 14:20 Dose: 100 mls/hr Insulin Human Regular (Novolin R) 0 unit SC ACHS [facility]; Protocol Last Admin: 11/11/18 17:55 Dose: 3 units Losartan Potassium (Cozaar) 100 mg PO QPM [facility] Last Admin: 05/18/18 17:55 Dose: 100 mg Sevelamer Carbonate (Renvela) 800 mg PO TIDCC [facility] Last Admin: 05/18/18 17:55 Dose: 800 mg Sodium Hypochlorite (Dakins Solution 0.125%) 1 appl TOP Q12 [facility] Last Admin: 05/18/18 15:37 Dose: Not Given Vitamin B Complex/Vit C/Folic Acid (Nephro-Naren) 1 tab PO 0800 [facility] Last Admin: 05/18/18 08:10 Dose: 1 tab - Labs Labs: 05/17/18 08:03 05/17/18 08:03 PT 12.6 SECONDS (9.7-12.2) H 05/13/18 07:46 INR 1.2 05/13/18 07:46 APTT 34 SECONDS (21-34) 05/13/18 07:46
--- NOTE | 2018-05-18 22:10 | CP.PCM.PN ---
Subjective - Date & Time of Evaluation Date of Evaluation: 05/17/18 Time of Evaluation: 19:20 - Subjective Subjective: Patient seen and examined at bedside. She denies leg or foot pain. Physical examination - Constitutional Appears: Non-toxic, No Acute Distress - Respiratory Exam Respiratory Exam: NORMAL BREATHING PATTERN. absent: Respiratory Distress - Cardiovascular Exam Cardiovascular Exam: +S1, +S2 - Extremities Exam Additional comments: Left groin dressing clean/dry/intact Bilateral feet warm - Neurological Exam Neurological Exam: Alert, Awake - Psychiatric Exam Psychiatric exam: Normal Affect, Normal Mood Assessment and Plan - Assessment and Plan (Free Text) Assessment: 68yo F with gangrene right foot. As per Dr. Romero S/p aortofemoral angiogram w/ selective catherization of right femoral artery on 05/16. No intervention was done. Pt found to have severe tibial disease. Open to trifurcation. Objective - Vital Signs/Intake and Output Vital Signs (last 24 hours): Temp Pulse Resp BP Pulse Ox 98.0 F 105 H 20 160/84 H 100 05/18/18 15:34 05/18/18 15:34 05/18/18 07:00 05/18/18 15:34 05/18/18 15:34 - Medications Medications: Current Medications Carvedilol (Coreg) 3.125 mg PO BID [facility] Last Admin: 05/18/18 17:55 Dose: 3.125 mg Dextrose (Dextrose 50% Inj) 0 ml IV STAT PRN; Protocol PRN Reason: Hypoglycemia Protocol Dextrose (Glutose 15) 0 gm PO ONCE PRN; Protocol PRN Reason: Hypoglycemia Protocol Epoetin Etienne (Procrit) 8,000 unit IV TTS [facility] Last Admin: 05/17/18 13:36 Dose: 8,000 unit Glucagon (Glucagen Diagnostic Kit) 0 mg IM STAT PRN; Protocol PRN Reason: Hypoglycemia Protocol Heparin Sodium (Porcine) (Heparin) 2,000 units IVP TTS [facility] Metronidazole 250 mg/ (Miscellaneous) 50 mls @ 100 mls/hr IVPB Q8H [facility]; Protocol Last Admin: 05/18/18 21:59 Dose: 100 mls/hr Insulin Human Regular (Novolin R) 0 unit SC ACHS [facility]; Protocol Last Admin: 05/18/18 22:00 Dose: Not Given Losartan Potassium (Cozaar) 100 mg PO QPM [facility] Last Admin: 05/18/18 17:55 Dose: 100 mg Sevelamer Carbonate (Renvela) 800 mg PO TIDCC [facility] Last Admin: 05/18/18 17:55 Dose: 800 mg Sodium Hypochlorite (Dakins Solution 0.125%) 1 appl TOP Q12 [facility] Last Admin: 05/18/18 22:00 Dose: 1 appl Vitamin B Complex/Vit C/Folic Acid (Nephro-Naren) 1 tab PO 0800 [facility] Last Admin: 05/18/18 08:10 Dose: 1 tab - Labs Labs: 05/17/18 08:03 05/17/18 08:03 PT 12.6 SECONDS (9.7-12.2) H 05/13/18 07:46 INR 1.2 05/13/18 07:46 APTT 34 SECONDS (21-34) 05/13/18 07:46
[2018-05-19] MEDS: metroNIDAZOLE IV 500 mg/100 ml 250 MG in Premixed IV 1 EA IVPB SCH ×3 (05:32→22:02)
[2018-05-19] MEDS: (Novolin R) Insulin Human Regular 100 units/ml vial SC SCH ×4 (07:41→22:03)
--- NOTE | 2018-05-19 08:10 | CP.PCM.PN ---
Subjective - Date & Time of Evaluation Date of Evaluation: 05/19/18 Time of Evaluation: 08:10 - Subjective Subjective: PGY2- Progress note for Dr. Denis Patient was seen and examined at bedside in no acute distress. Patient states she is feeling well and has no complaints today. Patient is s/p stress test today. Patient denies chest pain, palpitations, nausea, vomiting, fevers, headache dyspnea, dysuria, constipation, and diarrhea. Objective - Vital Signs/Intake and Output Vital Signs (last 24 hours): Temp Pulse Resp BP Pulse Ox 98.3 F 72 20 150/79 96 05/19/18 07:00 05/19/18 07:00 05/19/18 07:00 05/19/18 07:00 05/19/18 07:00 - Medications Medications: Current Medications Carvedilol (Coreg) 3.125 mg PO BID [facility] Last Admin: 05/18/18 17:55 Dose: 3.125 mg Dextrose (Dextrose 50% Inj) 0 ml IV STAT PRN; Protocol PRN Reason: Hypoglycemia Protocol Dextrose (Glutose 15) 0 gm PO ONCE PRN; Protocol PRN Reason: Hypoglycemia Protocol Epoetin Etienne (Procrit) 8,000 unit IV TTS [facility] Last Admin: 05/17/18 13:36 Dose: 8,000 unit Glucagon (Glucagen Diagnostic Kit) 0 mg IM STAT PRN; Protocol PRN Reason: Hypoglycemia Protocol Heparin Sodium (Porcine) (Heparin) 2,000 units IVP TTS [facility] Metronidazole 250 mg/ (Miscellaneous) 50 mls @ 100 mls/hr IVPB Q8H [facility]; Protocol Last Admin: 05/19/18 05:32 Dose: 100 mls/hr Insulin Human Regular (Novolin R) 0 unit SC ACHS [facility]; Protocol Last Admin: 05/19/18 07:41 Dose: Not Given Losartan Potassium (Cozaar) 100 mg PO QPM [facility] Last Admin: 05/18/18 17:55 Dose: 100 mg Sevelamer Carbonate (Renvela) 800 mg PO TIDCC [facility] Last Admin: 05/18/18 17:55 Dose: 800 mg Sodium Hypochlorite (Dakins Solution 0.125%) 1 appl TOP Q12 [facility] Last Admin: 05/18/18 22:00 Dose: 1 appl Vitamin B Complex/Vit C/Folic Acid (Nephro-Naren) 1 tab PO 0800 [facility] Last Admin: 05/18/18 08:10 Dose: 1 tab - Labs Labs: 05/17/18 08:03 05/17/18 08:03 PT 12.6 SECONDS (9.7-12.2) H 05/13/18 07:46 INR 1.2 05/13/18 07:46 APTT 34 SECONDS (21-34) 05/13/18 07:46 - Additional Findings Additional findings: - Constitutional Appears: No Acute Distress - Head Exam Head Exam: NORMAL INSPECTION - Eye Exam Eye Exam: EOMI, Normal appearance - ENT Exam ENT Exam: Mucous Membranes Moist - Respiratory Exam Respiratory Exam: Clear to Ausculation Bilateral, NORMAL BREATHING PATTERN. absent: Rhonchi, Wheezes, Respiratory Distress - Cardiovascular Exam Cardiovascular Exam: REGULAR RHYTHM, +S1, +S2 - GI/Abdominal Exam GI & Abdominal Exam: Soft, Normal Bowel Sounds. absent: Distended, Firm, Guarding, Tenderness - Extremities Exam Extremities Exam: absent: Pedal Edema, Tenderness Additional comments: RLE- dressing clean, dry, intact - Neurological Exam Neurological Exam: Alert, Awake, Oriented x3 - Psychiatric Exam Psychiatric exam: Normal Affect, Normal Mood - Skin Skin Exam: Dry, Normal Color, Warm Assessment and Plan - Assessment and Plan (Free Text) Plan: Gangrene of toe - Podiatry consult- Dr. Dior. recs appreciated. * Podiatric surgical intervention not recommended at this time * Wound cleansed and dressed with Dakin's solution wet to dry, Q12 - Vascular sx consult- Dr. Romero. recs appreciated. * s/p aortofemoral angiogram w/ selective catherization of right femoral artery on 05/16. No intervention was done. Pt found to have severe tibial disease. Open to trifurcation. * Patient may need pop-DP bypass pending vein mapping results - Cardiology consulted for cardiac clearance- Dr. Ledesma; help appreciated * Stress test and echo scheduled for 05/19/18. Follow up - ID consult- Dr. Nunez. recs appreciated. - Foot X-ray: soft tissue swelling noted, MRI recommended - LE US: severely decreased perfusion noted to the RLE; arterial wall calcifications noted to the left - Blood cx x2: negative to date - Wound cx: + proteus mirabilis citrobacter freudii - Flagyl 250mg IV Q8 h PVD - Vascular surgery consult- Dr. Romero. recs appreciated. - LE US: severely decreased perfusion noted to the RLE; arterial wall calcifications noted to the left - s/p aortofemoral angiogram w/ selective catherization of right femoral artery on 05/16. No intervention was done. Pt found to have severe tibial disease. Open to trifurcation. ESRD on Dialysis - Nephrology consult- Dr. Caro; help appreciated - Continue Nephrovite, Sevelamer - Losartan 100mg QPM - Continue dialysis TTS Diabetes Mellitus - HGB a1c 6.7 - ISS - Hypoglycemia protocol - Accuchecks CAD - Continue Coreg 3.125mg PO BID - Cardio consult- Dr. Ledesma. recs appreciated. CHF - Cardio consult- Dr. Ledesma; recs appreciated. - Continue Coreg 3.125mg PO BID Anemia - Likely secondary to CKD - Procrit 8000 IV TTS - Transfusions as needed Hypertension - Continue Losartan 100mg QPM Prophylaxis - Heart healthy diet - PT/OT All management/orders per Dr. Denis.
[2018-05-19] MEDS ORDERED: Caffeine Citrated **INJ** 20 MG/ML IV ONE (08:46)
[2018-05-19] MEDS: Multivitamin Vitamin B Complex (Nephro-Vite) Tab PO SCH (09:00)
--- NOTE | 2018-05-19 15:16 | CP.PCM.PN ---
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 Continue with Nephrovite 1 tab/day. pt had severe allergic reaction to polysulphone dialyzers (cardiac arrest) in past, hence uses only [place] Exeltra. PRBC as needed for anemia. on [place] with dialysis as last Hb 9.7 Continue with phos binders, last phos level: 3.8 BP control with meds as ordered. Patient on RAAS kam as losartan Glycemic control, Dialysis consistent diet Further work up/management as per primary team Dose meds/antibiotics (if needed) for ESRD status. Avoid fleets enema/magnesium based laxatives. Thanks for allowing me to participate in care of your patient. Will follow patient with you. Please call if any Qs. had d/w team Dr Juan Torres Office: [phone] Chief Complaint;RT toe wound HPI: Pt is a 68 F with hx of ESRD on hemodialysis (TTS) via AVF @ [facility], last dialysis Sat, chronic anemia, hyperphosphatemia, secondary hyperparathyroidism, Diabetes Mellitus, hypertension, CHF, PVD, obesity presented with complaints of Rt foot great toe infection and wound. pt is being seen by vascular as well Renal consult requested for ESRD management. pt denies any other complaints at this time ROS: Cardiovascular: No chest pain. Pulmonary: No shortness of breath Gastrointestinal: denies abdominal pain No nausea. No vomiting. Genitourinary: No pain while urinating. Denies blood in urine. All other negative except as mentioned in HPI undergoing cardiac work up for pre-op, planned for lower extremity bypass surgery Physical Examination: General Appearance: Comfortable, in no acute respiratory distress, co-operative . Vitals reviewed and noted as below Head; Atraumatic, normocephalic ENT: no ulcers no thrush. Tongue is midline. Oropharynx: no rash or ulcers. EYES: Pupils are equal, round and reactive to light accommodation. Eye muscles and extraocular movement intact. Sclera is anicteric. Neck; supple no lymphadenopathy, no thyromegaly or bruit Lungs: Normal respiratory rate/effort. Breath sounds bilateral equal and clear Heart: Normal rate. s1s2 normal. No rub or gallop. Extremities: pedal edema +. No varicose veins. Rt foot in dressing Neurological: Patient is alert, awake and oriented to person, place and time. No focal deficit. Strength bilateral appropriate and equal Skin: Warm and dry. Normal turgor. No rash. Palpitation: Normal elasticity for age Abdomen: Abdomen is soft. Bowel sounds +. There is no abdominal tenderness, no guarding/rigidity or organomegaly Psych: normal insight and normal affect/mood MSK: no joint tenderness or swelling. Digits and nails normal, no deformity : kidney or bladder not palpable Access: AVF Labs/imaging reviewed. Past medical history, past surgical history, family history, social history, allergy reviewed and noted as below Family Hx: no hx of CKD. Non contributory Objective - Vital Signs/Intake and Output Vital Signs (last 24 hours): Temp Pulse Resp BP Pulse Ox 98.3 F 72 20 150/79 100 05/19/18 07:00 05/19/18 07:00 05/19/18 07:00 05/19/18 07:00 05/19/18 08:37 - Medications Medications: Current Medications Carvedilol (Coreg) 3.125 mg PO BID [facility] Last Admin: 05/19/18 10:05 Dose: Not Given Dextrose (Dextrose 50% Inj) 0 ml IV STAT PRN; Protocol PRN Reason: Hypoglycemia Protocol Dextrose (Glutose 15) 0 gm PO ONCE PRN; Protocol PRN Reason: Hypoglycemia Protocol Epoetin Etienne (Procrit) 8,000 unit IV TTS [facility] Last Admin: 05/17/18 13:36 Dose: 8,000 unit Glucagon (Glucagen Diagnostic Kit) 0 mg IM STAT PRN; Protocol PRN Reason: Hypoglycemia Protocol Heparin Sodium (Porcine) (Heparin) 2,000 units IVP TTS [facility] Metronidazole 250 mg/ (Miscellaneous) 50 mls @ 100 mls/hr IVPB Q8H [facility]; Protocol Last Admin: 05/19/18 13:52 Dose: 100 mls/hr Insulin Human Regular (Novolin R) 0 unit SC ACHS [facility]; Protocol Last Admin: 05/19/18 12:00 Dose: Not Given Losartan Potassium (Cozaar) 100 mg PO QPM [facility] Last Admin: 05/18/18 17:55 Dose: 100 mg Sevelamer Carbonate (Renvela) 800 mg PO TIDCC [facility] Last Admin: 05/19/18 12:00 Dose: Not Given Sodium Hypochlorite (Dakins Solution 0.125%) 1 appl TOP Q12 [facility] Last Admin: 05/19/18 10:05 Dose: Not Given Vitamin B Complex/Vit C/Folic Acid (Nephro-Naren) 1 tab PO 0800 [facility] Last Admin: 05/19/18 09:00 Dose: Not Given - Labs Labs: 05/17/18 08:03 05/17/18 08:03 PT 12.6 SECONDS (9.7-12.2) H 05/13/18 07:46 INR 1.2 05/13/18 07:46 APTT 34 SECONDS (21-34) 05/13/18 07:46
--- NOTE | 2018-05-19 17:41 | CP.PCM.PN ---
Subjective - Date & Time of Evaluation Date of Evaluation: 05/19/18 Time of Evaluation: 17:39 - Subjective Subjective: progress note for Dr. Romero Will plan for bypass vs amputation once patient is medically optimized and cardiac risk assessed. Objective - Vital Signs/Intake and Output Vital Signs (last 24 hours): Temp Pulse Resp BP Pulse Ox 97.9 F 72 20 137/64 97 05/19/18 15:39 05/19/18 15:39 05/19/18 15:39 05/19/18 15:39 05/19/18 15:39 - Medications Medications: Current Medications Carvedilol (Coreg) 3.125 mg PO BID [facility] Last Admin: 05/19/18 17:24 Dose: 3.125 mg Dextrose (Dextrose 50% Inj) 0 ml IV STAT PRN; Protocol PRN Reason: Hypoglycemia Protocol Dextrose (Glutose 15) 0 gm PO ONCE PRN; Protocol PRN Reason: Hypoglycemia Protocol Epoetin Etienne (Procrit) 8,000 unit IV TTS [facility] Last Admin: 05/17/18 13:36 Dose: 8,000 unit Glucagon (Glucagen Diagnostic Kit) 0 mg IM STAT PRN; Protocol PRN Reason: Hypoglycemia Protocol Heparin Sodium (Porcine) (Heparin) 2,000 units IVP TTS [facility] Metronidazole 250 mg/ (Miscellaneous) 50 mls @ 100 mls/hr IVPB Q8H [facility]; Protocol Last Admin: 05/19/18 13:52 Dose: 100 mls/hr Insulin Human Regular (Novolin R) 0 unit SC ACHS [facility]; Protocol Last Admin: 05/19/18 17:24 Dose: 3 units Losartan Potassium (Cozaar) 100 mg PO QPM [facility] Last Admin: 05/19/18 17:24 Dose: 100 mg Sevelamer Carbonate (Renvela) 800 mg PO TIDCC [facility] Last Admin: 05/19/18 17:24 Dose: 800 mg Sodium Hypochlorite (Dakins Solution 0.125%) 1 appl TOP Q12 [facility] Last Admin: 05/19/18 10:05 Dose: Not Given Vitamin B Complex/Vit C/Folic Acid (Nephro-Naren) 1 tab PO 0800 [facility] Last Admin: 05/19/18 09:00 Dose: Not Given - Labs Labs: 05/17/18 08:03 05/17/18 08:03 PT 12.6 SECONDS (9.7-12.2) H 05/13/18 07:46 INR 1.2 05/13/18 07:46 APTT 34 SECONDS (21-34) 05/13/18 07:46
--- NOTE | 2018-05-19 18:50 | CP.PCM.PN ---
Subjective - Date & Time of Evaluation Date of Evaluation: 05/19/18 Time of Evaluation: 18:47 - Subjective Subjective: Podiatry Progress Note for Dr. Dior 68F seen at bedside for gangrenous right hallux. Patient is AAO x 3 and NAD, resting comfortably in bed. Denies any acute overnight events. States that pain is well controlled. Denies any new pedal complaints at this time. Denies any recent N/V/F/C/CP/SOB/D Objective - Vital Signs/Intake and Output Vital Signs (last 24 hours): Temp Pulse Resp BP Pulse Ox 97.9 F 72 20 137/64 97 05/19/18 15:39 05/19/18 15:39 05/19/18 15:39 05/19/18 15:39 05/19/18 15:39 - Medications Medications: Current Medications Carvedilol (Coreg) 3.125 mg PO BID [facility] Last Admin: 05/19/18 17:24 Dose: 3.125 mg Dextrose (Dextrose 50% Inj) 0 ml IV STAT PRN; Protocol PRN Reason: Hypoglycemia Protocol Dextrose (Glutose 15) 0 gm PO ONCE PRN; Protocol PRN Reason: Hypoglycemia Protocol Epoetin Etienne (Procrit) 8,000 unit IV TTS [facility] Last Admin: 05/17/18 13:36 Dose: 8,000 unit Glucagon (Glucagen Diagnostic Kit) 0 mg IM STAT PRN; Protocol PRN Reason: Hypoglycemia Protocol Heparin Sodium (Porcine) (Heparin) 2,000 units IVP TTS [facility] Metronidazole 250 mg/ (Miscellaneous) 50 mls @ 100 mls/hr IVPB Q8H [facility]; Protocol Last Admin: 05/19/18 13:52 Dose: 100 mls/hr Insulin Human Regular (Novolin R) 0 unit SC ACHS [facility]; Protocol Last Admin: 05/19/18 17:24 Dose: 3 units Losartan Potassium (Cozaar) 100 mg PO QPM [facility] Last Admin: 05/19/18 17:24 Dose: 100 mg Sevelamer Carbonate (Renvela) 800 mg PO TIDCC [facility] Last Admin: 05/19/18 17:24 Dose: 800 mg Sodium Hypochlorite (Dakins Solution 0.125%) 1 appl TOP Q12 [facility] Last Admin: 05/19/18 10:05 Dose: Not Given Vitamin B Complex/Vit C/Folic Acid (Nephro-Naren) 1 tab PO 0800 [facility] Last Admin: 05/19/18 09:00 Dose: Not Given - Labs Labs: 05/17/18 08:03 05/17/18 08:03 PT 12.6 SECONDS (9.7-12.2) H 05/13/18 07:46 INR 1.2 05/13/18 07:46 APTT 34 SECONDS (21-34) 05/13/18 07:46 - Constitutional Appears: Well, Non-toxic, No Acute Distress - Extremities Exam Additional comments: RLE focused exam: VASC: DP and PT non-palpable, CFT > 3 seconds to all digits, TG cool to cool, no edema noted NEURO: Epicritic and protective sensation diminished b/l DERM: gangrenous changes noted to the right hallux, no malodor appreciated, positive probe to bone, no drainage noted, no other open lesions noted, no clinical signs of infection noted ORTHO: patient denies pain at this time, MSK 5/5 - Neurological Exam Neurological Exam: Alert, Awake, Oriented x3 - Psychiatric Exam Psychiatric exam: Normal Affect, Normal Mood Assessment and Plan - Assessment and Plan (Free Text) Assessment: 68F seen at bedside for gangrenous right hallux Plan: Patient seen and evaluated Plan discussed with Dr. Dior Afebrile Continue abx per ID Foot X-ray: soft tissue swelling noted, MRI recommended Wound culture (05/12); Proteus, Citrobacter LE US: severely decreased perfusion noted to the RLE, arterial wall calcifications noted to the left As per podiatric surgery team recommendation, patient would most likely benefit from vascular intervention and a proximal surgery Wound dressed with MARY Pillai Following vascular intervention, patient will be brought for amputation of hallux, date TBD Podiatry will continue to follow while patient in house
[2018-05-20] MEDS: metroNIDAZOLE IV 500 mg/100 ml 250 MG in Premixed IV 1 EA IVPB SCH ×3 (05:30→21:42)
--- NOTE | 2018-05-20 05:33 | CARD ---
APPROVED REPORT Date of service: 05/19/2018 Protocol: LEXISCAN Test Type: LEXISCAN STRESS Test Indications: PRE OP Target HR: 153 bpm Resting ECG: NSR W/ NS ST T CHANGES W/ POOR R-WAVE PROGRESSION V1-V6 Resting Heart Rate: 68 bpm Resting Blood Pressure: 132/80mmHg submaximum (85%): 130 bpm TEST SUMMARY [id number]:02..1.068/.0. PREINFSNHYPERV.01:[id number]/80.0. INFUSIONDOSE 100:[id number]/80.0. [id number]:[id number]/80.0. PROCEDURE Pharmacologic stress testing was performed using 0.4mg per 5ml of regadenoson given intravenously over 7-10 seconds. POST EXERCISE Reason for Termination: Protocol Completed Target HR: No Max HR: 68 bpm 55% of Maximum Predicted HR: 153 bpm Exercise duration: 00:30 min:sec, 0 Stage Exercise capacity: 1.0METs Max Blood Pressure: 132/80mmHg Blood Pressure response to exercise: normal resting BP - appropriate response Heart Rate response to exercise: appropriate Chest Pain: No, none Angina index: 0 Arrhythmia: No, none ST Change: No, none Deviation: 0 mm INTERPRETATION Stress EKG Conclusion: NEGATIVE LEXISCAN STRESS TEST NORMAL BP RESPONSE TO LEXISCAN NUCLEAR STUDIES TO BE READ SEPARATELY EXAM: Myocardial Perfusion STRESS/REST Imaging Protocol The imaging protocol used to acquire images was Stress Tc-99m/rest Tc-99m 1 day Rest Spect myocardial perfusion imaging was performed in supine position 45 minutes following the injection of 29,0 mCi of Tc-99 Myoview. Gated Stress Spect was performed 45 minutes after intravenous 9.5 mCi Tc-99 Myoview injection. The images were gated to evaluate regional wall motion and calculate ventricular ejection fraction.Images were reconstructed using backfilter projection method in short horizontal and verticle long axis. Spect slices were generated. RESTING DATA PSL109.41vkKT1.80L/min1/3 Pk. Filling Rate1.27EDV/sec LV Time to Pk. Filling Rate70.80msec ESV62.00mlMyocardial Deff490.00gLV Time to Pk. Ejection Qolr520.01msec Pk. Fill Rate1.77EDV/secAv. Heart Rate85.00bpm EF52.00%Pk. Emptying Rate3.92ESV/sec STRESS DATA EDV99.36xoCB9.90L/min ESV35.00mlMyocardial Igah830.00g Pk. Fill Rate2.59EDV/sec EF65.00%Pk. Emptying Rate3.06ESV/sec 1/3 Pk. Filling Rate1.76EDV/secRegional WT score at stress:1.00 LV Time to Pk. Filling Rate:121.37msecRegional WM score at stress:0.00 LV Time to Pk. Ejection Rate:247.11msecSummed WT score at stress:20.00 Av. Heart Rate77.00bpmSummed WM score at stress:11.00 LV Perf. Quant 17 Seg. SSS34.00 17 Seg. SRS22.00 17 Seg. SDS15.00 Stress Defect Extent (% LAD)40.00Rest Defect Extent (% LAD)5.60Rev. Defect Extent (% LAD)38.10 Stress Defect Extent (% LCX)100.00Rest Defect Extent (% LCX)100.00Rev. Defect Extent (% LCX)88.80 Stress Defect Extent (% RCA)24.40Rest Defect Extent (% RCA)11.10Rev. Defect Extent (% RCA)21.10 Stress Defect Extent (% LB)53.00Rest Defect Extent (% LB)33.30Rev. Defect Extent (% LB)47.40 Other Information Quality:Limited IMPRESSION Abnormal Myocardial Perfusion exercise stress study Left Ventricle LV Function:Left ventricle systolic function is normal. The Ejection Fraction is >55%. Conclusion 1. Large anterolateral wall defect. Stress induced perfusion defect in the antreror wall. Recommend cardiac cath
--- NOTE | 2018-05-20 06:11 | CP.PCM.PN ---
Subjective - Date & Time of Evaluation Date of Evaluation: 05/19/18 Time of Evaluation: 20:30 - Subjective Subjective: Patient with abnomrla stress test For Cath tomorrow afternoon. NPO after 12 noon after a Light lunch Objective - Vital Signs/Intake and Output Vital Signs (last 24 hours): Temp Pulse Resp BP Pulse Ox 98.4 F 74 20 134/74 96 05/20/18 00:00 05/20/18 00:00 05/20/18 00:00 05/20/18 00:00 05/20/18 00:00 - Medications Medications: Current Medications Carvedilol (Coreg) 3.125 mg PO BID [facility] Last Admin: 05/19/18 17:24 Dose: 3.125 mg Dextrose (Dextrose 50% Inj) 0 ml IV STAT PRN; Protocol PRN Reason: Hypoglycemia Protocol Dextrose (Glutose 15) 0 gm PO ONCE PRN; Protocol PRN Reason: Hypoglycemia Protocol Epoetin Etienne (Procrit) 8,000 unit IV TTS [facility] Last Admin: 05/17/18 13:36 Dose: 8,000 unit Glucagon (Glucagen Diagnostic Kit) 0 mg IM STAT PRN; Protocol PRN Reason: Hypoglycemia Protocol Heparin Sodium (Porcine) (Heparin) 2,000 units IVP TTS [facility] Metronidazole 250 mg/ (Miscellaneous) 50 mls @ 100 mls/hr IVPB Q8H [facility]; Protocol Last Admin: 05/20/18 05:30 Dose: 100 mls/hr Insulin Human Regular (Novolin R) 0 unit SC ACHS DONAL[facility]; Protocol Last Admin: 05/19/18 22:03 Dose: Not Given Losartan Potassium (Cozaar) 100 mg PO QPM [facility] Last Admin: 05/19/18 17:24 Dose: 100 mg Sevelamer Carbonate (Renvela) 800 mg PO TIDCC [facility] Last Admin: 05/19/18 17:24 Dose: 800 mg Sodium Hypochlorite (Dakins Solution 0.125%) 1 appl TOP Q12 [facility] Last Admin: 05/19/18 21:20 Dose: Not Given Vitamin B Complex/Vit C/Folic Acid (Nephro-Naren) 1 tab PO 0800 [facility] Last Admin: 05/19/18 09:00 Dose: Not Given - Labs Labs: 05/17/18 08:03 05/17/18 08:03 PT 12.6 SECONDS (9.7-12.2) H 05/13/18 07:46 INR 1.2 05/13/18 07:46 APTT 34 SECONDS (21-34) 05/13/18 07:46
[2018-05-20] MEDS: Multivitamin Vitamin B Complex (Nephro-Vite) Tab PO SCH (08:00)
[2018-05-20] MEDS: (Novolin R) Insulin Human Regular 100 units/ml vial SC SCH ×4 (08:10→22:04)
--- NOTE | 2018-05-20 10:45 | CP.PCM.PN ---
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 Continue with Nephrovite 1 tab/day. pt had severe allergic reaction to polysulphone dialyzers (cardiac arrest) in past, hence uses only [place] Exeltra. PRBC as needed for anemia. on [place] with dialysis as last Hb 9.7 Continue with phos binders, last phos level: 3.8 BP control with meds as ordered. Patient on RAAS kam as losartan Glycemic control, Dialysis consistent diet Further work up/management as per primary team Dose meds/antibiotics (if needed) for ESRD status. Avoid fleets enema/magnesium based laxatives. cardiac work up ongoing as pt planned for lower extremity bypass vascular surgery Thanks for allowing me to participate in care of your patient. Will follow patient with you. Please call if any Qs. had d/w team Dr Juan Torres Office: [phone] Chief Complaint;RT toe wound HPI: Pt is a 68 F with hx of ESRD on hemodialysis (TTS) via AVF @ [facility], last dialysis Sat, chronic anemia, hyperphosphatemia, secondary hype rparathyroidism, Diabetes Mellitus, hypertension, CHF, PVD, obesity presented with complaints of Rt foot great toe infection and wound. pt is being seen by vascular as well Renal consult requested for ESRD management. pt denies any other complaints at this time ROS: Cardiovascular: No chest pain. Pulmonary: No shortness of breath Gastrointestinal: denies abdominal pain No nausea. No vomiting. Genitourinary: No pain while urinating. Denies blood in urine. All other negative except as mentioned in HPI undergoing cardiac work up for pre-op, planned for lower extremity bypass surgery for cardiac cath as abnormal stress test Physical Examination: General Appearance: Comfortable, in no acute respiratory distress, co-operative . Vitals reviewed and noted as below Head; Atraumatic, normocephalic ENT: no ulcers no thrush. Tongue is midline. Oropharynx: no rash or ulcers. EYES: Pupils are equal, round and reactive to light accommodation. Eye muscles and extraocular movement intact. Sclera is anicteric. Neck; supple no lymphadenopathy, no thyromegaly or bruit Lungs: Normal respiratory rate/effort. Breath sounds bilateral equal and clear Heart: Normal rate. s1s2 normal. No rub or gallop. Extremities: pedal edema +. No varicose veins. Rt foot in dressing Neurological: Patient is alert, awake and oriented to person, place and time. No focal deficit. Strength bilateral appropriate and equal Skin: Warm and dry. Normal turgor. No rash. Palpitation: Normal elasticity for age Abdomen: Abdomen is soft. Bowel sounds +. There is no abdominal tenderness, no guarding/rigidity or organomegaly Psych: normal insight and normal affect/mood MSK: no joint tenderness or swelling. Digits and nails normal, no deformity : kidney or bladder not palpable Access: AVF Labs/imaging reviewed. Past medical history, past surgical history, family history, social history, allergy reviewed and noted as below Family Hx: no hx of CKD. Non contributory Objective - Vital Signs/Intake and Output Vital Signs (last 24 hours): Temp Pulse Resp BP Pulse Ox 98.2 F 64 20 147/81 100 05/20/18 07:00 05/20/18 10:05 05/20/18 07:00 05/20/18 10:05 05/20/18 07:00 - Medications Medications: Current Medications Carvedilol (Coreg) 3.125 mg PO BID [facility] Last Admin: 05/20/18 10:06 Dose: 3.125 mg Dextrose (Dextrose 50% Inj) 0 ml IV STAT PRN; Protocol PRN Reason: Hypoglycemia Protocol Dextrose (Glutose 15) 0 gm PO ONCE PRN; Protocol PRN Reason: Hypoglycemia Protocol Epoetin Etienne (Procrit) 8,000 unit IV TTS [facility] Last Admin: 05/17/18 13:36 Dose: 8,000 unit Glucagon (Glucagen Diagnostic Kit) 0 mg IM STAT PRN; Protocol PRN Reason: Hypoglycemia Protocol Heparin Sodium (Porcine) (Heparin) 2,000 units IVP TTS [facility] Metronidazole 250 mg/ (Miscellaneous) 50 mls @ 100 mls/hr IVPB Q8H [facility]; Protocol Last Admin: 05/20/18 05:30 Dose: 100 mls/hr Insulin Human Regular (Novolin R) 0 unit SC ACHS DONALD; Protocol Last Admin: 05/20/18 08:10 Dose: Not Given Losartan Potassium (Cozaar) 100 mg PO QPM [facility] Last Admin: 05/19/18 17:24 Dose: 100 mg Sevelamer Carbonate (Renvela) 800 mg PO TIDCC [facility] Last Admin: 05/20/18 08:00 Dose: 800 mg Sodium Hypochlorite (Dakins Solution 0.125%) 1 appl TOP Q12 [facility] Last Admin: 05/20/18 10:06 Dose: 1 appl Vitamin B Complex/Vit C/Folic Acid (Nephro-Naren) 1 tab PO 0800 [facility] Last Admin: 05/20/18 08:00 Dose: 1 tab - Labs Labs: 05/17/18 08:03 05/17/18 08:03 PT 12.6 SECONDS (9.7-12.2) H 05/13/18 07:46 INR 1.2 05/13/18 07:46 APTT 34 SECONDS (21-34) 05/13/18 07:46
[2018-05-20 11:34] LABS: HEMOGLOBIN 9.8 g/dL (11.0-16.0); MEAN CELL VOLUME 99.9 fL (81.0-99.0); MEAN CORPUSCULAR HEMOGLOBIN 33.2 pg (27.0-31.0); MEAN CORPUSCULAR HGB CONC 33.3 g/dL (33.0-37.0); MEAN PLATELET VOLUME 7.8 fL (7.2-11.7); RBC 2.94 Mil/uL (3.80-5.20); RED CELL DISTRIBUTION WIDTH 14.3 % (11.5-14.5); WHITE BLOOD COUNT 9.8 K/uL (4.8-10.8)
[2018-05-20 11:40] LABS: INR 1.2; PROTHROMBIN TIME 13.2 SECONDS (9.7-12.2)
[2018-05-20 11:58] LABS: CALCIUM 8.3 mg/dl (8.6-10.4)
--- NOTE | 2018-05-20 14:11 | CP.PCM.PN ---
Subjective - Date & Time of Evaluation Date of Evaluation: 05/20/18 Time of Evaluation: 14:10 - Subjective Subjective: Progress note. Attending: Dr. Denis. Pt seen and examined at bedside. No acute distress. Going for cath and dialysis today. No fevers, chills, vomiting, diarrhea. Objective - Vital Signs/Intake and Output Vital Signs (last 24 hours): Temp Pulse Resp BP Pulse Ox 98.2 F 64 20 147/81 100 05/20/18 07:00 05/20/18 10:05 05/20/18 07:00 05/20/18 10:05 05/20/18 07:00 - Medications Medications: Current Medications Carvedilol (Coreg) 3.125 mg PO BID [facility] Last Admin: 05/20/18 10:06 Dose: 3.125 mg Dextrose (Dextrose 50% Inj) 0 ml IV STAT PRN; Protocol PRN Reason: Hypoglycemia Protocol Dextrose (Glutose 15) 0 gm PO ONCE PRN; Protocol PRN Reason: Hypoglycemia Protocol Epoetin Etienne (Procrit) 8,000 unit IV TTS [facility] Last Admin: 05/17/18 13:36 Dose: 8,000 unit Glucagon (Glucagen Diagnostic Kit) 0 mg IM STAT PRN; Protocol PRN Reason: Hypoglycemia Protocol Heparin Sodium (Porcine) (Heparin) 2,000 units IVP TTS [facility] Metronidazole 250 mg/ (Miscellaneous) 50 mls @ 100 mls/hr IVPB Q8H [facility]AL[facility]; Protocol Last Admin: 05/20/18 13:46 Dose: 100 mls/hr Insulin Human Regular (Novolin R) 0 unit SC ACHS [facility]; Protocol Last Admin: 05/20/18 11:53 Dose: Not Given Losartan Potassium (Cozaar) 100 mg PO QPM [facility] Last Admin: 05/19/18 17:24 Dose: 100 mg Sevelamer Carbonate (Renvela) 800 mg PO TIDCC [facility] Last Admin: 05/20/18 11:56 Dose: 800 mg Sodium Hypochlorite (Dakins Solution 0.125%) 1 appl TOP Q12 [facility] Last Admin: 05/20/18 10:06 Dose: 1 appl Vitamin B Complex/Vit C/Folic Acid (Nephro-Naren) 1 tab PO 0800 [facility] Last Admin: 05/20/18 08:00 Dose: 1 tab - Labs Labs: 05/20/18 11:24 05/20/18 11:24 PT 13.2 SECONDS (9.7-12.2) H 05/20/18 11:24 INR 1.2 05/20/18 11:24 APTT 34 SECONDS (21-34) 05/13/18 07:46 - Constitutional Appears: Non-toxic, No Acute Distress, Chronically Ill - Head Exam Head Exam: ATRAUMATIC, NORMAL INSPECTION, NORMOCEPHALIC - Eye Exam Eye Exam: EOMI - ENT Exam ENT Exam: Mucous Membranes Moist - Neck Exam Neck Exam: Full ROM, Normal Inspection - Respiratory Exam Respiratory Exam: absent: Respiratory Distress - Cardiovascular Exam Cardiovascular Exam: +S1, +S2 - GI/Abdominal Exam GI & Abdominal Exam: Soft, Normal Bowel Sounds. absent: Tenderness - Extremities Exam Extremities Exam: absent: Full ROM, Normal Inspection - Back Exam Back Exam: NORMAL INSPECTION - Neurological Exam Neurological Exam: Alert, Awake, Oriented x3 - Psychiatric Exam Psychiatric exam: Normal Affect, Normal Mood - Skin Skin Exam: Dry, Intact, Normal Color, Warm Assessment and Plan - Assessment and Plan (Free Text) Assessment: Gangrene of toe - Podiatry consult- Dr. Dior. recs appreciated. * Podiatric surgical intervention not recommended at this time * Wound cleansed and dressed with Dakin's solution wet to dry, Q12 - Vascular sx consult- Dr. Romero. recs appreciated. * s/p aortofemoral angiogram w/ selective catherization of right femoral artery on 05/16. No intervention was done. Pt found to have severe tibial disease. Open to trifurcation. * Patient may need pop-DP bypass pending vein mapping results - Cardiology consulted for cardiac clearance- Dr. Ledesma; help appreciated * Stress test and echo scheduled for 05/19/18. Follow up * pt scheduled for cath today, will follow up results. - ID consult- Dr. Nunez. recs appreciated. - Foot X-ray: soft tissue swelling noted, MRI recommended - LE US: severely decreased perfusion noted to the RLE; arterial wall calcifications noted to the left - Blood cx x2: negative to date - Wound cx: + proteus mirabilis citrobacter freudii - Flagyl 250mg IV Q8 h PVD - Vascular surgery consult- Dr. Romero. recs appreciated. - LE US: severely decreased perfusion noted to the RLE; arterial wall calcifications noted to the left - s/p aortofemoral angiogram w/ selective catherization of right femoral artery on 05/16. No intervention was done. Pt found to have severe tibial disease. Open to trifurcation. ESRD on Dialysis - Nephrology consult- Dr. Caro; help appreciated - Continue Nephrovite, Sevelamer - Losartan 100mg QPM - Continue dialysis TTS Diabetes Mellitus - HGB a1c 6.7 - ISS - Hypoglycemia protocol - Accuchecks CAD - Continue Coreg 3.125mg PO BID - Cardio consult- Dr. Ledesma. recs appreciated. CHF - Cardio consult- Dr. Ledesma; recs appreciated. - Continue Coreg 3.125mg PO BID Anemia - Likely secondary to CKD - Procrit 8000 IV TTS - Transfusions as needed Hypertension - Continue Losartan 100mg QPM Prophylaxis - Heart healthy diet - PT/OT All management/orders per Dr. Denis.
[2018-05-20] MEDS ORDERED: Lidocaine 2% MPF (5 ml) Inj ONE ×2 (17:55→17:59)
[2018-05-20] MEDS ORDERED: Midazolam 2 MG/2 ML VIAL ONE (18:13)
[2018-05-20] MEDS ORDERED: ceFAZolin 1 gm FROZEN Premix 1 GM/50 ML ML IVPB ONE (18:31)
--- NOTE | 2018-05-20 18:43 | CP.PCM.PN ---
Subjective - Date & Time of Evaluation Date of Evaluation: 05/20/18 Time of Evaluation: 18:38 - Subjective Subjective: Patient s/p cardiac cath 1. L Main: Patent 2. LAD: Mid 50% stenosis 3. L Cx/OM: OM1 100% occluded ([employer]ICE [employer]ER), Distal L Cx 60% 4. RCA: Proximal 50% 5. LV: EF 30% Patient is moderate cardiac risk for Vascular bypass under general anaesthesia Avoid Fluid overload If benefit outweighs the risk please proceed with the surgery Thank you Objective - Vital Signs/Intake and Output Vital Signs (last 24 hours): Temp Pulse Resp BP Pulse Ox 98.2 F 63 20 163/78 H 100 05/20/18 15:00 05/20/18 16:15 05/20/18 15:00 05/20/18 15:00 05/20/18 15:00 - Medications Medications: Current Medications Carvedilol (Coreg) 3.125 mg PO BID [facility] Last Admin: 05/20/18 17:21 Dose: Not Given Dextrose (Dextrose 50% Inj) 0 ml IV STAT PRN; Protocol PRN Reason: Hypoglycemia Protocol Dextrose (Glutose 15) 0 gm PO ONCE PRN; Protocol PRN Reason: Hypoglycemia Protocol Epoetin Etienne (Procrit) 8,000 unit IV TTS [facility] Last Admin: 05/17/18 13:36 Dose: 8,000 unit Glucagon (Glucagen Diagnostic Kit) 0 mg IM STAT PRN; Protocol PRN Reason: Hypoglycemia Protocol Heparin Sodium (Porcine) (Heparin) 2,000 units IVP TTS [facility] Metronidazole 250 mg/ (Miscellaneous) 50 mls @ 100 mls/hr IVPB Q8H [facility]; Protocol Last Admin: 05/20/18 13:46 Dose: 100 mls/hr Insulin Human Regular (Novolin R) 0 unit SC ACHS DONAL[facility]; Protocol Last Admin: 05/20/18 16:39 Dose: Not Given Losartan Potassium (Cozaar) 100 mg PO QPM [facility] Last Admin: 05/20/18 17:21 Dose: Not Given Sevelamer Carbonate (Renvela) 800 mg PO TIDCC [facility] Last Admin: 05/20/18 17:21 Dose: Not Given Sodium Hypochlorite (Dakins Solution 0.125%) 1 appl TOP Q12 [facility] Last Admin: 05/20/18 10:06 Dose: 1 appl Vitamin B Complex/Vit C/Folic Acid (Nephro-Naren) 1 tab PO 0800 [facility] Last Admin: 05/20/18 08:00 Dose: 1 tab - Labs Labs: 05/20/18 11:24 05/20/18 11:24 PT 13.2 SECONDS (9.7-12.2) H 05/20/18 11:24 INR 1.2 05/20/18 11:24 APTT 34 SECONDS (21-34) 05/13/18 07:46
--- NOTE | 2018-05-20 18:52 | CARD ---
APPROVED REPORT Date of service: 05/20/2018 EXAM: Two-dimensional and M-mode echocardiogram with Doppler and color Doppler. INDICATION Congestive Heart Failure RISK FACTORS Hypertension Hyperlipidemia Diabetes 2D DIMENSIONS IVSd1.3 (0.7-1.1cm)Aortic Root (2D)2.9 (2.0-3.7cm) LVDd4.8 (3.9-5.9cm)PWd1.1 (0.7-1.1cm) LA Zslhxb24 (18-58mL)LVDs3.1 (2.5-4.0cm) IVC0.00 cm M-Mode DIMENSIONS RVDd2.93 (2.1-3.2cm)Left Atrium (MM)4.18 (2.5-4.0cm) IVSd1.09 (0.7-1.1cm)Aortic Root3.05 (2.2-3.7cm) LVDd5.04 (4.0-5.6cm)Aortic Cusp Exc.1.48 (1.5-2.0cm) PWd1.09 (0.7-1.1cm)LVDs3.12 (2.0-3.8cm) TAPSE20.69 cm Mitral Valve MV E Logvevfh38.9cm/sMV A Ksfpsima93.7cm/sE/A ratio0.8 TDI Lateral E' Peak V6.35cm/sMedial E' Peak V3.90cm/sE/Lateral E'12.7 E/Medial E'20.7 Tricuspid Valve TR Peak Csmkqapw032cq/sTR Peak Gr.73tnPgCCKJ48tcCo LEFT VENTRICLE The left ventricle is normal size. There is normal left ventricular wall thickness. The systolic function is borderline impaired. Bi-plane Ejection Fraction is - 50%. In some views there is a questionable lateral wall hypokinesis Transmitral Doppler flow pattern is Grade I-abnormal relaxation pattern. Elevated left atrial pressure RIGHT VENTRICLE The right ventricle is normal size. The right ventricular systolic function is normal. ATRIA The left atrium is borderline dilated with inter-atrial septum deviated to the right suggesting elevated left atrial pressure. The right atrium size is normal. AORTIC VALVE The aortic valve is normal in structure. No aortic regurgitation is present. There is no aortic valvular stenosis. MITRAL VALVE The mitral valve is normal in structure. Mitral annular calcification is mild. Mild mitral regurgitation. TRICUSPID VALVE The tricuspid valve is normal in structure. There is mild tricuspid regurgitation. Right ventricular systolic pressure is estimated at less than 30 mmHg. PULMONIC VALVE The pulmonary valve is normal in structure. GREAT VESSELS The aortic root is normal in size. The IVC is normal in size and collapses >50% with inspiration. PERICARDIAL EFFUSION There is a trace to small posterior pericardial effusion. <Conclusion> The left ventricle is normal size. In some views there is a questionable lateral wall hypokinesis The systolic function is borderline impaired. Bi-plane Ejection Fraction is - 50%. Grade I-abnormal relaxation pattern. Elevated left atrial pressure The right ventricular systolic function is normal. The left atrium is borderline dilated with inter-atrial septum deviated to the right suggesting elevated left atrial pressure. There is mild mitral and tricuspid regurgitation. Right ventricular systolic pressure is estimated at less than 30 mmHg. There is a trace to small posterior pericardial effusion.
[2018-05-21] MEDS: metroNIDAZOLE IV 500 mg/100 ml 250 MG in Premixed IV 1 EA IVPB SCH (05:55)
[2018-05-21] MEDS: (Novolin R) Insulin Human Regular 100 units/ml vial SC SCH ×4 (08:03→21:28)
[2018-05-21] MEDS: Multivitamin Vitamin B Complex (Nephro-Vite) Tab PO SCH (08:53)
[2018-05-21] MEDS: EPOETIN ALFA 4,000 UNIT/ML ML Dialysis IV SCH (10:56)
--- NOTE | 2018-05-21 11:27 | CP.PCM.PN ---
Subjective - Date & Time of Evaluation Date of Evaluation: 05/21/18 Time of Evaluation: 11:25 - Subjective Subjective: Progress note. Attending: Dr. Denis. Pt seen and examined at bedside. No acute distress. No fevers, chills, vomiting, diarrhea. No complaints. Objective - Vital Signs/Intake and Output Vital Signs (last 24 hours): Temp Pulse Resp BP Pulse Ox 98 F 75 20 162/85 H 100 05/21/18 07:56 05/21/18 07:56 05/21/18 07:56 05/21/18 07:56 05/21/18 07:56 Intake and Output: 05/21/18 05/21/18 06:59 18:59 Intake Total 300 Balance 300 - Medications Medications: Current Medications Carvedilol (Coreg) 3.125 mg PO BID [facility] Last Admin: 05/21/18 09:47 Dose: Not Given Dextrose (Dextrose 50% Inj) 0 ml IV STAT PRN; Protocol PRN Reason: Hypoglycemia Protocol Dextrose (Glutose 15) 0 gm PO ONCE PRN; Protocol PRN Reason: Hypoglycemia Protocol Epoetin Etienne (Procrit) 8,000 unit IV TTS [facility] Last Admin: 05/21/18 10:56 Dose: 8,000 unit Glucagon (Glucagen Diagnostic Kit) 0 mg IM STAT PRN; Protocol PRN Reason: Hypoglycemia Protocol Heparin Sodium (Porcine) (Heparin) 2,000 units IVP TTS [facility] Last Admin: 05/21/18 10:52 Dose: 2,000 units Metronidazole 250 mg/ (Miscellaneous) 50 mls @ 100 mls/hr IVPB Q8H [facility]; Protocol Last Admin: 05/21/18 05:55 Dose: 100 mls/hr Insulin Human Regular (Novolin R) 0 unit SC ACHS [facility]; Protocol Last Admin: 05/21/18 08:03 Dose: Not Given Losartan Potassium (Cozaar) 100 mg PO QPM [facility] Last Admin: 05/20/18 17:21 Dose: Not Given Sevelamer Carbonate (Renvela) 800 mg PO TIDCC [facility] Last Admin: 05/21/18 08:53 Dose: 800 mg Sodium Hypochlorite (Dakins Solution 0.125%) 1 appl TOP Q12 [facility] Last Admin: 05/21/18 09:48 Dose: Not Given Vitamin B Complex/Vit C/Folic Acid (Nephro-Naren) 1 tab PO 0800 [facility] Last Admin: 05/21/18 08:53 Dose: 1 tab - Labs Labs: 05/20/18 11:24 05/20/18 11:24 PT 13.2 SECONDS (9.7-12.2) H 05/20/18 11:24 INR 1.2 05/20/18 11:24 APTT 34 SECONDS (21-34) 05/13/18 07:46 - Constitutional Appears: Non-toxic, No Acute Distress, Chronically Ill - Head Exam Head Exam: ATRAUMATIC, NORMAL INSPECTION, NORMOCEPHALIC - Eye Exam Eye Exam: EOMI - ENT Exam ENT Exam: Mucous Membranes Moist - Neck Exam Neck Exam: Full ROM, Normal Inspection - Respiratory Exam Respiratory Exam: NORMAL BREATHING PATTERN. absent: Respiratory Distress - Cardiovascular Exam Cardiovascular Exam: +S1, +S2 - GI/Abdominal Exam GI & Abdominal Exam: Soft, Normal Bowel Sounds. absent: Tenderness - Extremities Exam Extremities Exam: absent: Full ROM, Normal Inspection - Neurological Exam Neurological Exam: Alert, Awake - Psychiatric Exam Psychiatric exam: Flat Affect - Skin Skin Exam: Dry, Intact, Normal Color, Warm Assessment and Plan - Assessment and Plan (Free Text) Assessment: Gangrene of toe - Podiatry consult- Dr. Dior. recs appreciated. * Podiatric surgical intervention not recommended at this time * Wound cleansed and dressed with Dakin's solution wet to dry, Q12 - Vascular sx consult- Dr. Romero. recs appreciated. * s/p aortofemoral angiogram w/ selective catherization of right femoral artery on 05/16. No intervention was done. Pt found to have severe tibial disease. Open to trifurcation. * Patient may need pop-DP bypass pending vein mapping results - Cardiology consulted for cardiac clearance- Dr. Ledesma; help appreciated * cath shows left main patent, LAD with 50 percent stenosis, left circumflex om 1 100 percent, occluded distal left circumflex 60 percent, ef of 30 percent, pt is moderate cardiac risk to proceed - ID consult- Dr. Nunez. recs appreciated. - Foot X-ray: soft tissue swelling noted, MRI recommended - LE US: severely decreased perfusion noted to the RLE; arterial wall calcifications noted to the left - Blood cx x2: negative to date - Wound cx: + proteus mirabilis citrobacter freudii - Flagyl 250mg IV Q8 h PVD - Vascular surgery consult- Dr. Romero. recs appreciated. - LE US: severely decreased perfusion noted to the RLE; arterial wall calcifications noted to the left - s/p aortofemoral angiogram w/ selective catherization of right femoral artery on 05/16. No intervention was done. Pt found to have severe tibial disease. Open to trifurcation. ESRD on Dialysis - Nephrology consult- Dr. Caro; help appreciated - Continue Nephrovite, Sevelamer - Losartan 100mg QPM - Continue dialysis TTS Diabetes Mellitus - HGB a1c 6.7 - ISS - Hypoglycemia protocol - Accuchecks CAD - Continue Coreg 3.125mg PO BID - Cardio consult- Dr. Ledesma. recs appreciated. CHF - Cardio consult- Dr. Ledesma; recs appreciated. - Continue Coreg 3.125mg PO BID Anemia - Likely secondary to CKD - Procrit 8000 IV TTS - Transfusions as needed Hypertension - Continue Losartan 100mg QPM Prophylaxis - Heart healthy diet - PT/OT All management/orders per Dr. Denis.
--- NOTE | 2018-05-21 14:21 | CP.PCM.PN ---
Subjective - Date & Time of Evaluation Date of Evaluation: 05/21/18 Time of Evaluation: 10:00 - Subjective Subjective: Vascular Surgery: Dr. Romero Pt seen and examined. No acute overnight events. Pt is s/p cardiac cath yesterday. Denies any complaints at this time. Tolerating diet, ambulating. Objective - Vital Signs/Intake and Output Vital Signs (last 24 hours): Temp Pulse Resp BP Pulse Ox 97.6 F 75 18 172/90 H 98 05/21/18 10:30 05/21/18 10:45 05/21/18 10:30 05/21/18 12:04 05/21/18 10:30 Intake and Output: 05/21/18 05/21/18 06:59 18:59 Intake Total 300 Balance 300 - Medications Medications: Current Medications Carvedilol (Coreg) 3.125 mg PO BID [facility] Last Admin: 05/21/18 09:47 Dose: Not Given Dextrose (Dextrose 50% Inj) 0 ml IV STAT PRN; Protocol PRN Reason: Hypoglycemia Protocol Dextrose (Glutose 15) 0 gm PO ONCE PRN; Protocol PRN Reason: Hypoglycemia Protocol Epoetin Etienne (Procrit) 8,000 unit IV TTS [facility] Last Admin: 05/21/18 10:56 Dose: 8,000 unit Glucagon (Glucagen Diagnostic Kit) 0 mg IM STAT PRN; Protocol PRN Reason: Hypoglycemia Protocol Heparin Sodium (Porcine) (Heparin) 2,000 units IVP TTS [facility] Last Admin: 05/21/18 10:52 Dose: 2,000 units Metronidazole 250 mg/ (Miscellaneous) 50 mls @ 100 mls/hr IVPB Q8H [facility]; Protocol Last Admin: 05/21/18 05:55 Dose: 100 mls/hr Insulin Human Regular (Novolin R) 0 unit SC ACHS [facility]; Protocol Last Admin: 05/21/18 11:30 Dose: Not Given Losartan Potassium (Cozaar) 100 mg PO QPM [facility] Last Admin: 05/20/18 17:21 Dose: Not Given Sevelamer Carbonate (Renvela) 800 mg PO TIDCC [facility] Last Admin: 05/21/18 12:52 Dose: Not Given Sodium Hypochlorite (Dakins Solution 0.125%) 1 appl TOP Q12 [facility] Last Admin: 05/21/18 09:48 Dose: Not Given Vitamin B Complex/Vit C/Folic Acid (Nephro-Naren) 1 tab PO 0800 [facility] Last Admin: 05/21/18 08:53 Dose: 1 tab - Labs Labs: 05/20/18 11:24 05/20/18 11:24 PT 13.2 SECONDS (9.7-12.2) H 05/20/18 11:24 INR 1.2 05/20/18 11:24 APTT 34 SECONDS (21-34) 05/13/18 07:46 - Constitutional Appears: Well, No Acute Distress - Head Exam Head Exam: ATRAUMATIC, NORMOCEPHALIC - ENT Exam ENT Exam: Mucous Membranes Moist - Respiratory Exam Respiratory Exam: NORMAL BREATHING PATTERN - Cardiovascular Exam Cardiovascular Exam: RRR - GI/Abdominal Exam GI & Abdominal Exam: Soft - Extremities Exam Additional comments: R hallux with gangrene - Neurological Exam Neurological Exam: Alert, Awake, Oriented x3 - Skin Skin Exam: Dry, Warm Assessment and Plan - Assessment and Plan (Free Text) Assessment: 68F with PAD and gangrenous R hallux Plan: - plan for popliteal-DP bypass on Mon - medically optimize for OR - evaluated by cardio and deemed moderate risk for surgery - d/w Dr. Heather Chinchilla
[2018-05-21 14:23] LABS: BASO % 0.4 % (0.0-2.0); EOS # 0.2 K/uL (0.0-0.7); EOS % 2.4 % (0.0-4.0); HEMOGLOBIN 10.5 g/dL (11.0-16.0); LYMPH # 1.2 K/uL (1.0-4.3); LYMPH % 13.4 % (20.0-40.0); MEAN CELL VOLUME 98.7 fL (81.0-99.0); MEAN CORPUSCULAR HEMOGLOBIN 33.3 pg (27.0-31.0); MEAN CORPUSCULAR HGB CONC 33.7 g/dL (33.0-37.0); MEAN PLATELET VOLUME 7.7 fL (7.2-11.7); MONO # 0.9 K/uL (0.0-0.8); MONO % 9.9 % (0.0-10.0); NEUT # 6.5 K/uL (1.8-7.0); NEUT % 73.9 % (50.0-75.0); NRBC % 0.1 % (0.0-2.0); RBC 3.14 Mil/uL (3.80-5.20); WHITE BLOOD COUNT 8.9 K/uL (4.8-10.8)
--- NOTE | 2018-05-21 16:12 | CP.PCM.PN ---
Subjective - Date & Time of Evaluation Date of Evaluation: 05/21/18 Time of Evaluation: 16:11 - Subjective Subjective: Nephrology Consultation Note: Assessment: Stable Rt foot great toe necrosis/gangrene with PVD Diabetic chronic Kidney Disease (E11.22) Hypertensive Chronic Kidney Disease (I12.0) End stage renal disease (N18.6) dependence on hemodialysis (Z99.2) (TTS) via AVF Anemia (D64.9), Hyperphosphatemia (E83.39), Secondary Hyperparathyroidism (E21.1), HTN (I12.0) Obesity, sys CHF with moderate to severe TR Plan: couldn't get HD yesterday hence getting today Will plan for dialysis as per TTS. Continue with Nephrovite 1 tab/day. pt had severe allergic reaction to polysulphone dialyzers (cardiac arrest) in past, hence uses only [place] Exeltra. PRBC as needed for anemia. on [place] with dialysis as last Hb 9.7 Continue with phos binders, last phos level: 3.8 BP control with meds as ordered. Patient on RAAS kam as losartan Glycemic control, Dialysis consistent diet Further work up/management as per primary team Dose meds/antibiotics (if needed) for ESRD status. Avoid fleets enema/magnesium based laxatives. cardiac work up ongoing as pt planned for lower extremity bypass vascular surgery Thanks for allowing me to participate in care of your patient. Will follow patient with you. Please call if any Qs. had d/w team Dr Juan Torres Office: [phone] Chief Complaint;RT toe wound HPI: Pt is a 68 F with hx of ESRD on hemodialysis (TTS) via AVF @ [facility], last dialysis Sat, chronic anemia, hyperphosphatemia, secondary hyperparathyroidism, Diabetes Mellitus, hypertension, CHF, PVD, obesity presented with complaints of Rt foot great toe infection and wound. pt is being seen by vascular as well Renal consult requested for ESRD management. pt denies any other complaints at this time ROS: Cardiovascular: No chest pain. Pulmonary: No shortness of breath Gastrointestinal: denies abdominal pain No nausea. No vomiting. Genitourinary: No pain while urinating. Denies blood in urine. All other negative except as mentioned in HPI undergoing cardiac work up for pre-op, planned for lower extremity bypass surgery for cardiac cath as abnormal stress test Physical Examination: seen during HD General Appearance: Comfortable, in no acute respiratory distress, co-operative . Vitals reviewed and noted as below Head; Atraumatic, normocephalic ENT: no ulcers no thrush. Tongue is midline. Oropharynx: no rash or ulcers. EYES: Pupils are equal, round and reactive to light accommodation. Eye muscles and extraocular movement intact. Sclera is anicteric. Neck; supple no lymphadenopathy, no thyromegaly or bruit Lungs: Normal respiratory rate/effort. Breath sounds bilateral equal and clear Heart: Normal rate. s1s2 normal. No rub or gallop. Extremities: pedal edema +. No varicose veins. Rt foot in dressing Neurological: Patient is alert, awake and oriented to person, place and time. No focal deficit. Strength bilateral appropriate and equal Skin: Warm and dry. Normal turgor. No rash. Palpitation: Normal elasticity for age Abdomen: Abdomen is soft. Bowel sounds +. There is no abdominal tenderness, no guarding/rigidity or organomegaly Psych: normal insight and normal affect/mood MSK: no joint tenderness or swelling. Digits and nails normal, no deformity : kidney or bladder not palpable Access: AVF Labs/imaging reviewed. Past medical history, past surgical history, family history, social history, allergy reviewed and noted as below Family Hx: no hx of CKD. Non contributory Objective - Vital Signs/Intake and Output Vital Signs (last 24 hours): Temp Pulse Resp BP Pulse Ox 98.1 F 80 20 155/82 H 95 05/21/18 15:00 05/21/18 15:00 05/21/18 15:00 05/21/18 15:00 05/21/18 15:00 Intake and Output: 05/21/18 05/21/18 06:59 18:59 Intake Total 300 Balance 300 - Medications Medications: Current Medications Carvedilol (Coreg) 3.125 mg PO BID [facility] Last Admin: 05/21/18 09:47 Dose: Not Given Dextrose (Dextrose 50% Inj) 0 ml IV STAT PRN; Protocol PRN Reason: Hypoglycemia Protocol Dextrose (Glutose 15) 0 gm PO ONCE PRN; Protocol PRN Reason: Hypoglycemia Protocol Epoetin Etienne (Procrit) 8,000 unit IV TTS [facility] Last Admin: 05/21/18 10:56 Dose: 8,000 unit Glucagon (Glucagen Diagnostic Kit) 0 mg IM STAT PRN; Protocol PRN Reason: Hypoglycemia Protocol Heparin Sodium (Porcine) (Heparin) 2,000 units IVP TTS [facility] Last Admin: 05/21/18 10:52 Dose: 2,000 units Insulin Human Regular (Novolin R) 0 unit SC ACHS [facility]; Protocol Last Admin: 05/21/18 11:30 Dose: Not Given Losartan Potassium (Cozaar) 100 mg PO QPM [facility] Last Admin: 05/20/18 17:21 Dose: Not Given Metronidazole (Flagyl) 500 mg PO Q8 [facility]; Protocol Sevelamer Carbonate (Renvela) 800 mg PO TIDCC [facility] Last Admin: 05/21/18 12:52 Dose: Not Given Sodium Hypochlorite (Dakins Solution 0.125%) 1 appl TOP Q12 [facility] Last Admin: 05/21/18 09:48 Dose: Not Given Vitamin B Complex/Vit C/Folic Acid (Nephro-Naren) 1 tab PO 0800 [facility] Last Admin: 05/21/18 08:53 Dose: 1 tab - Labs Labs: 05/21/18 14:16 05/20/18 11:24 PT 13.2 SECONDS (9.7-12.2) H 05/20/18 11:24 INR 1.2 05/20/18 11:24 APTT 34 SECONDS (21-34) 05/13/18 07:46
[2018-05-21 20:26] LABS: ALB/GLOB RATIO 0.9 (1.0-2.1); CALCIUM 7.9 mg/dl (8.6-10.4)
[2018-05-22 07:48] LABS: BASO % 0.5 % (0.0-2.0); EOS # 0.2 K/uL (0.0-0.7); EOS % 1.9 % (0.0-4.0); HEMOGLOBIN 9.8 g/dL (11.0-16.0); LYMPH # 1.4 K/uL (1.0-4.3); LYMPH % 16.4 % (20.0-40.0); MEAN CELL VOLUME 99.7 fL (81.0-99.0); MEAN CORPUSCULAR HEMOGLOBIN 33.8 pg (27.0-31.0); MEAN CORPUSCULAR HGB CONC 33.9 g/dL (33.0-37.0); MEAN PLATELET VOLUME 7.5 fL (7.2-11.7); MONO % 11.7 % (0.0-10.0); NEUT # 5.9 K/uL (1.8-7.0); NEUT % 69.5 % (50.0-75.0); RBC 2.91 Mil/uL (3.80-5.20); RED CELL DISTRIBUTION WIDTH 14.3 % (11.5-14.5); WHITE BLOOD COUNT 8.5 K/uL (4.8-10.8)
[2018-05-22 08:08] LABS: ALB/GLOB RATIO 0.9 (1.0-2.1); ALBUMIN 3.3 g/dL (3.5-5.0); CALCIUM 8.6 mg/dl (8.6-10.4)
[2018-05-22] MEDS: (Novolin R) Insulin Human Regular 100 units/ml vial SC SCH ×4 (08:30→21:44)
[2018-05-22] MEDS: Multivitamin Vitamin B Complex (Nephro-Vite) Tab PO SCH (09:00)
--- NOTE | 2018-05-22 09:45 | CP.PCM.PN ---
Subjective - Date & Time of Evaluation Date of Evaluation: 05/22/18 Time of Evaluation: 09:46 - Subjective Subjective: PGY3 Note for Dr. Denis This patient was seen and examined at bedside this AM; she had no overnight events and no acute complaints this am; denies all symptoms. Objective - Vital Signs/Intake and Output Vital Signs (last 24 hours): Temp Pulse Resp BP Pulse Ox 98.1 F 83 20 167/89 H 92 L 05/22/18 07:50 05/22/18 08:30 05/22/18 07:50 05/22/18 07:50 05/22/18 07:50 Intake and Output: 05/22/18 05/22/18 06:59 18:59 Intake Total 300 Balance 300 - Medications Medications: Current Medications Carvedilol (Coreg) 3.125 mg PO BID [facility] Last Admin: 05/21/18 17:28 Dose: 3.125 mg Dextrose (Dextrose 50% Inj) 0 ml IV STAT PRN; Protocol PRN Reason: Hypoglycemia Protocol Dextrose (Glutose 15) 0 gm PO ONCE PRN; Protocol PRN Reason: Hypoglycemia Protocol Epoetin Etienne (Procrit) 8,000 unit IV TTS [facility] Last Admin: 05/21/18 10:56 Dose: 8,000 unit Glucagon (Glucagen Diagnostic Kit) 0 mg IM STAT PRN; Protocol PRN Reason: Hypoglycemia Protocol Heparin Sodium (Porcine) (Heparin) 2,000 units IVP TTS [facility] Last Admin: 05/21/18 10:52 Dose: 2,000 units Insulin Human Regular (Novolin R) 0 unit SC ACHS [facility]; Protocol Last Admin: 05/22/18 08:30 Dose: Not Given Losartan Potassium (Cozaar) 100 mg PO QPM [facility] Last Admin: 05/21/18 17:28 Dose: 100 mg Metronidazole (Flagyl) 500 mg PO Q8 [facility]; Protocol Last Admin: 05/22/18 05:52 Dose: 500 mg Sevelamer Carbonate (Renvela) 800 mg PO TIDCC [facility] Last Admin: 05/22/18 09:00 Dose: 800 mg Sodium Hypochlorite (Dakins Solution 0.125%) 1 appl TOP Q12 [facility] Last Admin: 05/21/18 21:16 Dose: 1 appl Vitamin B Complex/Vit C/Folic Acid (Nephro-Naren) 1 tab PO 0800 [facility] Last Admin: 05/22/18 09:00 Dose: 1 tab - Labs Labs: 05/22/18 07:34 05/22/18 07:34 PT 13.2 SECONDS (9.7-12.2) H 05/20/18 11:24 INR 1.2 05/20/18 11:24 APTT 34 SECONDS (21-34) 05/13/18 07:46 - Constitutional Appears: Non-toxic - Head Exam Head Exam: ATRAUMATIC - Eye Exam Eye Exam: EOMI - ENT Exam ENT Exam: Mucous Membranes Moist - Neck Exam Neck Exam: Full ROM - Respiratory Exam Respiratory Exam: Clear to Ausculation Bilateral, NORMAL BREATHING PATTERN. absent: Rales, Rhonchi, Wheezes - Cardiovascular Exam Cardiovascular Exam: REGULAR RHYTHM - GI/Abdominal Exam GI & Abdominal Exam: Soft, Normal Bowel Sounds. absent: Tenderness - Extremities Exam Additional comments: gangrenous right great toe; diminished pulses, warm - Neurological Exam Neurological Exam: Alert, Awake, Oriented x3 - Psychiatric Exam Psychiatric exam: Normal Affect - Skin Skin Exam: Warm Assessment and Plan - Assessment and Plan (Free Text) Assessment: Gangrene of toe - Podiatry consult- Dr. Dior. recs appreciated. * Podiatric surgical intervention not recommended at this time * Wound cleansed and dressed with Dakin's solution wet to dry, Q12 - Vascular sx consult- Dr. Romero. recs appreciated. * s/p aortofemoral angiogram w/ selective catherization of right femoral artery on 05/16. No intervention was done. Pt found to have severe tibial disease. Open to trifurcation. * Patient may need pop-DP bypass pending vein mapping results - Cardiology consulted for cardiac clearance- Dr. Ledesma; help appreciated * cath shows left main patent, LAD with 50 percent stenosis, left circumflex om 1 100 percent, occluded distal left circumflex 60 percent, ef of 30 percent, pt is moderate cardiac risk to proceed - ID consult- Dr. Nunez. recs appreciated. - Foot X-ray: soft tissue swelling noted, MRI recommended - LE US: severely decreased perfusion noted to the RLE; arterial wall calcifications noted to the left - Blood cx x2: negative to date - Wound cx: + proteus mirabilis citrobacter freudii - Flagyl 250mg IV Q8 h patient is tentatively for OR on Saturday 05/26 with moderate risk Called outpatient office for dr. Romero to make sure pre-auth was done for o utpatient surgery to be covered by patients insurance 05/22/18 with no answer; will call again tomorrow 05/23/18; patient can go home after we make sure prior auth is completed as patient is currently medically optimized patient can go home on PO flagyl as per ID; will have TLC in groin taken out; will take out tomorrow -needs to have OR time planned; son will be able to bring her back in for surgery; no food after midnight saturday evening PVD - Vascular surgery consult- Dr. Romero. recs appreciated. - LE US: severely decreased perfusion noted to the RLE; arterial wall calcifications noted to the left - s/p aortofemoral angiogram w/ selective catherization of right femoral artery on 05/16. No intervention was done. Pt found to have severe tibial disease. Open to trifurcation. ESRD on Dialysis - Nephrology consult- Dr. Caro; help appreciated - Continue Nephrovite, Sevelamer - Losartan 100mg QPM - Continue dialysis TTS Diabetes Mellitus - HGB a1c 6.7 - ISS - Hypoglycemia protocol - Accuchecks CAD - Continue Coreg 3.125mg PO BID - Cardio consult- Dr. Ledesma. recs appreciated. CHF;chronic not in acute exacerbation - Cardio consult- Dr. Ledesma; recs appreciated. - Continue Coreg 3.125mg PO BID Anemia - Likely secondary to CKD - Procrit 8000 IV TTS - Transfusions as needed Hypertension - Continue Losartan 100mg QPM Prophylaxis - Heart healthy diet - PT/OT All management/orders per Dr. Denis The patient is stable for d/c as per Dr. Denis As per case management; TLC can be d/c and patient can go home on PO antibiotics will make sure patient has prior auth for outpatient surgery; patient currently has spot in OR Patient is stable for d/c to continue all current medicines at home and come back Saturday for bypass by Dr. Romero if can line up prior auth for same day surgery on Saturday05/26/18; otherwise will keep patient in house until Saturday Fuad Talley PGY3 Heart Failure Core Measure - Heart Failure Ejection Fraction: 40 % or Greater Left Ventricular Function to be assessed after discharge: Yes WILMA Inhibitor Prescribed: No Contraindication/Reason for not providing: patient is AA Beta-Bjorn Prescribed: Metoprolol Succinate Angiotensin II Receptor Bjorn Prescribed: Yes AnticoagulationTherapy for Atrial Fibrillation/Atrialflutter: No Contraindication/Reason for not providing: not indicated Aldosterone Antagonist Prescribed: No Contraindication/Reason for not providing: not indicated Hydralazine Nitrate Prescribed: No Contraindication/Reason for not providing: not indicated Implantable Cardioverter Defibrillator Therapy: No Contraindication/Reason for not providing: has external for the time being Cardiac Resynchronization Therapy Prescribed: No Contraindication/Reason for not providing: not indicated - Follow up Will be discharged to: Home Follow Up Date (must be within 7 days from discharge): 05/29/18
--- NOTE | 2018-05-22 11:14 | CP.PCM.PN ---
Subjective - Date & Time of Evaluation Date of Evaluation: 05/22/18 Time of Evaluation: 11:13 - Subjective Subjective: Nephrology Consultation Note: Assessment: Stable Rt foot great toe necrosis/gangrene with PVD Diabetic chronic Kidney Disease (E11.22) Hypertensive Chronic Kidney Disease (I12.0) End stage renal disease (N18.6) dependence on hemodialysis (Z99.2) (TTS) via AVF Anemia (D64.9), Hyperphosphatemia (E83.39), Secondary Hyperparathyroidism (E21.1), HTN (I12.0) Obesity, sys CHF with moderate to severe TR Plan: Will plan for dialysis as per TTS. Continue with Nephrovite 1 tab/day. pt had severe allergic reaction to polysulphone dialyzers (cardiac arrest) in past, hence uses only Glover Exeltra. PRBC as needed for anemia. on [place] with dialysis as last Hb 9.7 Continue with phos binders, last phos level: 3.8 BP control with meds as ordered. Patient on RAAS kam as losartan Glycemic control, Dialysis consistent diet Further work up/management as per primary team Dose meds/antibiotics (if needed) for ESRD status. Avoid fleets enema/magnesium based laxatives. cardiac work up ongoing as pt planned for lower extremity bypass vascular surgery Thanks for allowing me to participate in care of your patient. Will follow patient with you. Please call if any Qs. had d/w team Dr Juan Torres Office: [phone] Chief Complaint;RT toe wound HPI: Pt is a 68 F with hx of ESRD on hemodialysis (TTS) via [facility]F @ [facility], last dialysis Sat, chronic anemia, hyperphosphatemia, secondary hype rparathyroidism, Diabetes Mellitus, hypertension, CHF, PVD, obesity presented with complaints of Rt foot great toe infection and wound. pt is being seen by vascular as well Renal consult requested for ESRD management. pt denies any other complaints at this time ROS: Cardiovascular: No chest pain. Pulmonary: No shortness of breath Gastrointestinal: denies abdominal pain No nausea. No vomiting. Genitourinary: No pain while urinating. Denies blood in urine. All other negative except as mentioned in HPI undergoing cardiac work up for pre-op, planned for lower extremity bypass surgery had cardiac cath as abnormal stress test Physical Examination: General Appearance: Comfortable, in no acute respiratory distress, co-operative . Vitals reviewed and noted as below Head; Atraumatic, normocephalic ENT: no ulcers no thrush. Tongue is midline. Oropharynx: no rash or ulcers. EYES: Pupils are equal, round and reactive to light accommodation. Eye muscles and extraocular movement intact. Sclera is anicteric. Neck; supple no lymphadenopathy, no thyromegaly or bruit Lungs: Normal respiratory rate/effort. Breath sounds bilateral equal and clear Heart: Normal rate. s1s2 normal. No rub or gallop. Extremities: pedal edema +. No varicose veins. Rt foot in dressing Neurological: Patient is alert, awake and oriented to person, place and time. No focal deficit. Strength bilateral appropriate and equal Skin: Warm and dry. Normal turgor. No rash. Palpitation: Normal elasticity for age Abdomen: Abdomen is soft. Bowel sounds +. There is no abdominal tenderness, no guarding/rigidity or organomegaly Psych: normal insight and normal affect/mood MSK: no joint tenderness or swelling. Digits and nails normal, no deformity : kidney or bladder not palpable Access: AVF Labs/imaging reviewed. Past medical history, past surgical history, family history, social history, allergy reviewed and noted as below Family Hx: no hx of CKD. Non contributory Objective - Vital Signs/Intake and Output Vital Signs (last 24 hours): Temp Pulse Resp BP Pulse Ox 98.1 F 83 20 128/64 92 L 05/22/18 07:50 05/22/18 10:21 05/22/18 07:50 05/22/18 10:21 05/22/18 07:50 Intake and Output: 05/22/18 05/22/18 06:59 18:59 Intake Total 300 Balance 300 - Medications Medications: Current Medications Carvedilol (Coreg) 3.125 mg PO BID [facility] Last Admin: 05/22/18 10:22 Dose: 3.125 mg Dextrose (Dextrose 50% Inj) 0 ml IV STAT PRN; Protocol PRN Reason: Hypoglycemia Protocol Dextrose (Glutose 15) 0 gm PO ONCE PRN; Protocol PRN Reason: Hypoglycemia Protocol Epoetin Etienne (Procrit) 8,000 unit IV TTS [facility] Last Admin: 05/21/18 10:56 Dose: 8,000 unit Glucagon (Glucagen Diagnostic Kit) 0 mg IM STAT PRN; Protocol PRN Reason: Hypoglycemia Protocol Heparin Sodium (Porcine) (Heparin) 2,000 units IVP TTS [facility] Last Admin: 05/21/18 10:52 Dose: 2,000 units Insulin Human Regular (Novolin R) 0 unit SC ACHS [facility]; Protocol Last Admin: 05/22/18 08:30 Dose: Not Given Losartan Potassium (Cozaar) 100 mg PO QPM [facility] Last Admin: 05/21/18 17:28 Dose: 100 mg Metronidazole (Flagyl) 500 mg PO Q8 [facility]; Protocol Last Admin: 05/22/18 05:52 Dose: 500 mg Sevelamer Carbonate (Renvela) 800 mg PO TIDCC [facility] Last Admin: 05/22/18 09:00 Dose: 800 mg Sodium Hypochlorite (Dakins Solution 0.125%) 1 appl TOP Q12 [facility] Last Admin: 05/22/18 10:23 Dose: Not Given Vitamin B Complex/Vit C/Folic Acid (Nephro-Naren) 1 tab PO 0800 [facility] Last Admin: 05/22/18 09:00 Dose: 1 tab - Labs Labs: 05/22/18 07:34 05/22/18 07:34 PT 13.2 SECONDS (9.7-12.2) H 05/20/18 11:24 INR 1.2 05/20/18 11:24 APTT 34 SECONDS (21-34) 05/13/18 07:46
--- NOTE | 2018-05-22 13:11 | CP.PCM.PN ---
Subjective - Date & Time of Evaluation Date of Evaluation: 05/22/18 Time of Evaluation: 13:08 - Subjective Subjective: Podiatry Progress Note for Dr. Dior 68F seen at bedside for gangrenous right hallux. Patient is AAO x 3 and NAD, resting comfortably in bed. Denies any acute overnight events. States that she has no pain to her toe. Denies any new pedal complaints at this time. Denies any recent N/V/F/C/CP/SOB/D Objective - Vital Signs/Intake and Output Vital Signs (last 24 hours): Temp Pulse Resp BP Pulse Ox 98.1 F 83 20 128/64 92 L 05/22/18 07:50 05/22/18 10:21 05/22/18 07:50 05/22/18 10:21 05/22/18 07:50 Intake and Output: 05/22/18 05/22/18 06:59 18:59 Intake Total 300 Balance 300 - Medications Medications: Current Medications Carvedilol (Coreg) 3.125 mg PO BID [facility] Last Admin: 05/22/18 10:22 Dose: 3.125 mg Dextrose (Dextrose 50% Inj) 0 ml IV STAT PRN; Protocol PRN Reason: Hypoglycemia Protocol Dextrose (Glutose 15) 0 gm PO ONCE PRN; Protocol PRN Reason: Hypoglycemia Protocol Epoetin Etienne (Procrit) 8,000 unit IV TTS [facility] Last Admin: 05/21/18 10:56 Dose: 8,000 unit Glucagon (Glucagen Diagnostic Kit) 0 mg IM STAT PRN; Protocol PRN Reason: Hypoglycemia Protocol Heparin Sodium (Porcine) (Heparin) 2,000 units IVP TTS [facility] Last Admin: 05/21/18 10:52 Dose: 2,000 units Insulin Human Regular (Novolin R) 0 unit SC ACHS [facility]; Protocol Last Admin: 05/22/18 08:30 Dose: Not Given Losartan Potassium (Cozaar) 100 mg PO QPM [facility] Last Admin: 05/21/18 17:28 Dose: 100 mg Metronidazole (Flagyl) 500 mg PO Q8 [facility]; Protocol Last Admin: 05/22/18 05:52 Dose: 500 mg Sevelamer Carbonate (Renvela) 800 mg PO TIDCC [facility] Last Admin: 05/22/18 09:00 Dose: 800 mg Sodium Hypochlorite (Dakins Solution 0.125%) 1 appl TOP Q12 [facility] Last Admin: 05/22/18 10:23 Dose: Not Given Vitamin B Complex/Vit C/Folic Acid (Nephro-Naren) 1 tab PO 0800 [facility] Last Admin: 05/22/18 09:00 Dose: 1 tab - Labs Labs: 05/22/18 07:34 05/22/18 07:34 PT 13.2 SECONDS (9.7-12.2) H 05/20/18 11:24 INR 1.2 05/20/18 11:24 APTT 34 SECONDS (21-34) 05/13/18 07:46 - Constitutional Appears: Well, Non-toxic, No Acute Distress - Extremities Exam Additional comments: RLE focused exam: VASC: DP and PT non-palpable, CFT > 3 seconds to all digits, TG cool to cool, no edema noted NEURO: Epicritic and protective sensation diminished b/l DERM: gangrenous changes noted to the right hallux noted to be stable at this time, no malodor appreciated, positive probe to bone, no drainage noted, no other open lesions noted, no clinical signs of infection noted ORTHO: patient denies pain at this time, MSK 5/5 - Neurological Exam Neurological Exam: Alert, Awake, Oriented x3 - Psychiatric Exam Psychiatric exam: Normal Affect, Normal Mood Assessment and Plan - Assessment and Plan (Free Text) Assessment: 68F seen at bedside for gangrenous right hallux Plan: Patient seen and evaluated Plan discussed with Dr. Dior Afebrile, absent leukocytosis Continue abx per ID Patient tentatively scheduled for Pop/DP bypass on 05/26 Pending results of bypass, amputation of gangrenous hallux will be scheduled thereafter with Dr. Dior Toe dressed today with Daikins wet to dry Podiatry will continue to follow while patient in house
--- NOTE | 2018-05-22 16:32 | CP.PCM.PN ---
Subjective - Date & Time of Evaluation Date of Evaluation: 05/22/18 Time of Evaluation: 07:00 - Subjective Subjective: IV rx in progress s/p bypass for amp hallux Objective - Vital Signs/Intake and Output Vital Signs (last 24 hours): Temp Pulse Resp BP Pulse Ox 98.1 F 77 20 128/64 92 L 05/22/18 07:50 05/22/18 15:44 05/22/18 07:50 05/22/18 10:21 05/22/18 07:50 Intake and Output: 05/22/18 05/22/18 06:59 18:59 Intake Total 300 Balance 300 - Medications Medications: Current Medications Carvedilol (Coreg) 3.125 mg PO BID [facility] Last Admin: 05/22/18 10:22 Dose: 3.125 mg Dextrose (Dextrose 50% Inj) 0 ml IV STAT PRN; Protocol PRN Reason: Hypoglycemia Protocol Dextrose (Glutose 15) 0 gm PO ONCE PRN; Protocol PRN Reason: Hypoglycemia Protocol Epoetin Etienne (Procrit) 8,000 unit IV TTS [facility] Last Admin: 05/21/18 10:56 Dose: 8,000 unit Glucagon (Glucagen Diagnostic Kit) 0 mg IM STAT PRN; Protocol PRN Reason: Hypoglycemia Protocol Heparin Sodium (Porcine) (Heparin) 2,000 units IVP TTS [facility] Last Admin: 05/22/18 14:44 Dose: 2,000 units Cefepime HCl 1 gm/ Dextrose 50 mls @ 100 mls/hr IVPB Q24H [facility]; Protocol Insulin Human Regular (Novolin R) 0 unit SC ACHS [facility]; Protocol Last Admin: 05/22/18 13:10 Dose: 2 units Losartan Potassium (Cozaar) 100 mg PO QPM [facility] Last Admin: 05/21/18 17:28 Dose: 100 mg Metronidazole (Flagyl) 500 mg PO Q8 [facility]; Protocol Last Admin: 05/22/18 13:57 Dose: Not Given Sevelamer Carbonate (Renvela) 800 mg PO TIDCC [facility] Last Admin: 05/22/18 13:00 Dose: 800 mg Sodium Hypochlorite (Dakins Solution 0.125%) 1 appl TOP Q12 [facility] Last Admin: 05/22/18 10:23 Dose: Not Given Vitamin B Complex/Vit C/Folic Acid (Nephro-Naren) 1 tab PO 0800 [facility] Last Admin: 05/22/18 09:00 Dose: 1 tab - Labs Labs: 05/22/18 07:34 05/22/18 07:34 PT 13.2 SECONDS (9.7-12.2) H 05/20/18 11:24 INR 1.2 05/20/18 11:24 APTT 34 SECONDS (21-34) 05/13/18 07:46 - Constitutional Appears: Non-toxic, Chronically Ill - Head Exam Head Exam: NORMOCEPHALIC - Eye Exam Eye Exam: absent: Scleral icterus - ENT Exam ENT Exam: Mucous Membranes Dry - Neck Exam Neck Exam: absent: Lymphadenopathy - Respiratory Exam Respiratory Exam: Decreased Breath Sounds - Cardiovascular Exam Cardiovascular Exam: REGULAR RHYTHM - GI/Abdominal Exam GI & Abdominal Exam: Distended - Rectal Exam Rectal Exam: Deferred Assessment and Plan (1) Diabetic foot infection Status: Acute (2) Diabetic infection of right foot Status: Acute
[2018-05-22] MEDS: EPOETIN ALFA 4,000 UNIT/ML ML Dialysis IV SCH (17:39)
--- NOTE | 2018-05-23 07:50 | CP.PCM.PN ---
Subjective - Date & Time of Evaluation Date of Evaluation: 05/23/18 Time of Evaluation: 07:50 - Subjective Subjective: PGY2 Progress note for Dr. Denis Patient was seen and examined at bedside. Patient has no complaints and feels well. She is NPO today for fistulogram. The patient denies chest pain, palpitations, dyspnea, cough, nausea, vomiting, fevers, headaches, muscle aches, dysuria, and diarrhea. Objective - Vital Signs/Intake and Output Vital Signs (last 24 hours): Temp Pulse Resp BP Pulse Ox 98.4 F 84 20 120/71 94 L 05/23/18 00:00 05/23/18 00:16 05/23/18 00:00 05/23/18 00:00 05/23/18 00:00 Intake and Output: 05/23/18 05/23/18 06:59 18:59 Intake Total 550 Balance 550 - Medications Medications: Current Medications Carvedilol (Coreg) 3.125 mg PO BID [facility] Last Admin: 05/22/18 18:19 Dose: 3.125 mg Dextrose (Dextrose 50% Inj) 0 ml IV STAT PRN; Protocol PRN Reason: Hypoglycemia Protocol Dextrose (Glutose 15) 0 gm PO ONCE PRN; Protocol PRN Reason: Hypoglycemia Protocol Epoetin Etienne (Procrit) 8,000 unit IV TTS [facility] Last Admin: 05/22/18 17:39 Dose: 8,000 unit Glucagon (Glucagen Diagnostic Kit) 0 mg IM STAT PRN; Protocol PRN Reason: Hypoglycemia Protocol Heparin Sodium (Porcine) (Heparin) 2,000 units IVP TTS [facility] Last Admin: 05/22/18 14:44 Dose: 2,000 units Cefepime HCl 1 gm/ Dextrose 50 mls @ 100 mls/hr IVPB Q24H [facility]; Protocol Last Admin: 05/22/18 19:08 Dose: 100 mls/hr Insulin Human Regular (Novolin R) 0 unit SC ACHS [facility]; Protocol Last Admin: 05/22/18 21:44 Dose: Not Given Losartan Potassium (Cozaar) 100 mg PO QPM [facility] Last Admin: 05/22/18 17:04 Dose: 100 mg Metronidazole (Flagyl) 500 mg PO Q8 [facility]; Protocol Last Admin: 05/23/18 05:20 Dose: 500 mg Sevelamer Carbonate (Renvela) 800 mg PO TIDCC [facility] Last Admin: 05/22/18 18:19 Dose: 800 mg Sodium Hypochlorite (Dakins Solution 0.125%) 1 appl TOP Q12 [facility] Last Admin: 05/22/18 21:15 Dose: 1 appl Vitamin B Complex/Vit C/Folic Acid (Nephro-Naren) 1 tab PO 0800 [facility] Last Admin: 05/22/18 09:00 Dose: 1 tab - Labs Labs: 05/22/18 07:34 05/22/18 07:34 PT 13.2 SECONDS (9.7-12.2) H 05/20/18 11:24 INR 1.2 05/20/18 11:24 APTT 34 SECONDS (21-34) 05/13/18 07:46 - Additional Findings Additional findings: - Constitutional Appears: No Acute Distress - Head Exam Head Exam: NORMAL INSPECTION - Eye Exam Eye Exam: EOMI, Normal appearance - ENT Exam ENT Exam: Mucous Membranes Moist - Respiratory Exam Respiratory Exam: Clear to Ausculation Bilateral, NORMAL BREATHING PATTERN. absent: Rhonchi, Wheezes, Respiratory Distress - Cardiovascular Exam Cardiovascular Exam: REGULAR RHYTHM, +S1, +S2 - GI/Abdominal Exam GI & Abdominal Exam: Soft, Normal Bowel Sounds. absent: Distended, Firm, Guarding, Tenderness - Extremities Exam Extremities Exam: absent: Pedal Edema, Tenderness Additional comments: RLE- dressing clean, dry, intact; diminished pulses - Neurological Exam Neurological Exam: Alert, Awake, Oriented x3 - Psychiatric Exam Psychiatric exam: Normal Affect, Normal Mood - Skin Skin Exam: Dry, Normal Color, Warm Assessment and Plan - Assessment and Plan (Free Text) Plan: Gangrene of toe - Podiatry consult- Dr. Dior. recs appreciated. * Podiatric surgical intervention not recommended at this time * Wound cleansed and dressed with Dakin's solution wet to dry, Q12 - Vascular sx consult- Dr. Romero. recs appreciated. * s/p aortofemoral angiogram w/ selective catherization of right femoral artery on 05/16. No intervention was done. Pt found to have severe tibial disease. Open to trifurcation. * Patient may need pop-DP bypass pending vein mapping results - Cardiology consulted for cardiac clearance- Dr. Ledesma; help appreciated * cath shows left main patent, LAD with 50 percent stenosis, left circumflex om 1 100 percent, occluded distal left circumflex 60 percent, ef of 30 percent, pt is moderate cardiac risk to proceed - ID consult- Dr. Nunez. recs appreciated. - Foot X-ray: soft tissue swelling noted, MRI recommended - LE US: severely decreased perfusion noted to the RLE; arterial wall calcifications noted to the left - Blood cx x2: negative to date - Wound cx: + proteus mirabilis citrobacter freudii - Flagyl 250mg IV Q8 h *patient is tentatively scheduled for OR on Saturday 05/26 with moderate risk PVD - Vascular surgery consult- Dr. Romero. recs appreciated. - LE US: severely decreased perfusion noted to the RLE; arterial wall calcifications noted to the left - s/p aortofemoral angiogram w/ selective catherization of right femoral artery on 05/16. No intervention was done. Pt found to have severe tibial disease. Open to trifurcation. ESRD on Dialysis - Nephrology consult- Dr. Caro; help appreciated - Continue Nephrovite, Sevelamer - Losartan 100mg QPM - Continue dialysis TTS Diabetes Mellitus - HGB a1c 6.7 - ISS - Hypoglycemia protocol - Accuchecks CAD - Continue Coreg 3.125mg PO BID - Cardio consult- Dr. Ledesma. recs appreciated. CHF;chronic not in acute exacerbation - Cardio consult- Dr. Ledesma; recs appreciated. - Continue Coreg 3.125mg PO BID Anemia - Likely secondary to CKD - Procrit 8000 IV TTS - Transfusions as needed Hypertension - Continue Losartan 100mg QPM Prophylaxis - Heart healthy diet - PT/OT Dispo: Patient is scheduled for fistulogram on Saturday05/23/18. Patient is also schedule for bypass surgery with Dr. Romero on 05/26/18.
[2018-05-23] MEDS: (Novolin R) Insulin Human Regular 100 units/ml vial SC SCH ×4 (07:53→22:11)
[2018-05-23] MEDS: Multivitamin Vitamin B Complex (Nephro-Vite) Tab PO SCH (09:00)
[2018-05-23 12:27] LABS: BASO # 0.1 K/uL (0.0-0.2); BASO % 1.2 % (0.0-2.0); EOS # 0.2 K/uL (0.0-0.7); EOS % 2.3 % (0.0-4.0); HEMOGLOBIN 9.8 g/dL (11.0-16.0); LYMPH # 1.3 K/uL (1.0-4.3); LYMPH % 13.9 % (20.0-40.0); MEAN CELL VOLUME 100.4 fL (81.0-99.0); MEAN CORPUSCULAR HEMOGLOBIN 33.1 pg (27.0-31.0); MEAN PLATELET VOLUME 7.5 fL (7.2-11.7); NEUT # 6.7 K/uL (1.8-7.0); NEUT % 71.6 % (50.0-75.0); NRBC % 0.1 % (0.0-2.0); RBC 2.97 Mil/uL (3.80-5.20); RED CELL DISTRIBUTION WIDTH 14.9 % (11.5-14.5); WHITE BLOOD COUNT 9.4 K/uL (4.8-10.8)
[2018-05-23 14:14] LABS: ALB/GLOB RATIO 0.8 (1.0-2.1); CALCIUM 8.4 mg/dl (8.6-10.4)
[2018-05-23] MEDS ORDERED: Midazolam 2 MG/2 ML VIAL ONE (14:18)
[2018-05-23] MEDS ORDERED: Iodixanol 320 MG/ML 100 ML BOTTLE IV ONE (14:21)
--- NOTE | 2018-05-23 15:24 | CP.PCM.PN ---
Subjective - Date & Time of Evaluation Date of Evaluation: 05/23/18 Time of Evaluation: 15:23 - Subjective Subjective: Nephrology Consultation Note: Assessment: Stable Rt foot great toe necrosis/gangrene with PVD s/p angioplasty for AVF stenosis 05/23/18 Diabetic chronic Kidney Disease (E11.22) Hypertensive Chronic Kidney Disease (I12.0) End stage renal disease (N18.6) dependence on hemodialysis (Z99.2) (TTS) via AVF Anemia (D64.9), Hyperphosphatemia (E83.39), Secondary Hyperparathyroidism (E21.1), HTN (I12.0) Obesity, sys CHF with moderate to severe TR Plan: Will plan for dialysis as per TTS. Continue with Nephrovite 1 tab/day. pt had s evere allergic reaction to polysulphone dialyzers (cardiac arrest) in past, hence uses only [place] Exeltra. PRBC as needed for anemia. on [place] with dialysis as last Hb 9.7 Continue with phos binders, last phos level: 3.8 BP control with meds as ordered. Patient on RAAS kam as losartan Glycemic control, Dialysis consistent diet Further work up/management as per primary team Dose meds/antibiotics (if needed) for ESRD status. Avoid fleets enema/magnesium based laxatives. pt planned for lower extremity bypass vascular surgery Thanks for allowing me to participate in care of your patient. Will follow patient with you. Please call if any Qs. had d/w team Dr Juan Torres Office: [phone] Chief Complaint;RT toe wound HPI: Pt is a 68 F with hx of ESRD on hemodialysis (TTS) via AVF @ [facility], last dialysis Sat, chronic anemia, hyperphosphatemia, secondary hyperparathyroidism, Diabetes Mellitus, hypertension, CHF, PVD, obesity presented with complaints of Rt foot great toe infection and wound. pt is being seen by vascular as well Renal consult requested for ESRD management. pt denies any other complaints at this time ROS: s/p angioplasty for AVF stenosis 05/23/18 no new complaints underwent cardiac work up for pre-op, planned for lower extremity bypass surgery had cardiac cath as abnormal stress test Physical Examination: General Appearance: Comfortable, in no acute respiratory distress, co-operative . Vitals reviewed and noted as below Head; Atraumatic, normocephalic ENT: no ulcers no thrush. Tongue is midline. Oropharynx: no rash or ulcers. EYES: Pupils are equal, round and reactive to light accommodation. Eye muscles and extraocular movement intact. Sclera is anicteric. Neck; supple no lymphadenopathy, no thyromegaly or bruit Lungs: Normal respiratory rate/effort. Breath sounds bilateral equal and clear Heart: Normal rate. s1s2 normal. No rub or gallop. Extremities: pedal edema +. No varicose veins. Rt foot in dressing Neurological: Patient is alert, awake and oriented to person, place and time. No focal deficit. Strength bilateral appropriate and equal Skin: Warm and dry. Normal turgor. No rash. Palpitation: Normal elasticity for age Abdomen: Abdomen is soft. Bowel sounds +. There is no abdominal tenderness, no guarding/rigidity or organomegaly Psych: normal insight and normal affect/mood MSK: no joint tenderness or swelling. Digits and nails normal, no deformity : kidney or bladder not palpable Access: AVF Labs/imaging reviewed. Past medical history, past surgical history, family history, social history, allergy reviewed and noted as below Family Hx: no hx of CKD. Non contributory Objective - Vital Signs/Intake and Output Vital Signs (last 24 hours): Temp Pulse Resp BP Pulse Ox 97.7 F 73 20 124/75 97 05/23/18 07:00 05/23/18 10:33 05/23/18 07:00 05/23/18 10:33 05/23/18 07:00 Intake and Output: 05/23/18 05/23/18 06:59 18:59 Intake Total 550 Balance 550 - Medications Medications: Current Medications Carvedilol (Coreg) 3.125 mg PO BID [facility] Last Admin: 05/23/18 10:34 Dose: 3.125 mg Dextrose (Dextrose 50% Inj) 0 ml IV STAT PRN; Protocol PRN Reason: Hypoglycemia Protocol Dextrose (Glutose 15) 0 gm PO ONCE PRN; Protocol PRN Reason: Hypoglycemia Protocol Epoetin Etienne (Procrit) 8,000 unit IV TTS [facility] Last Admin: 05/22/18 17:39 Dose: 8,000 unit Glucagon (Glucagen Diagnostic Kit) 0 mg IM STAT PRN; Protocol PRN Reason: Hypoglycemia Protocol Heparin Sodium (Porcine) (Heparin) 2,000 units IVP TTS [facility] Last Admin: 05/22/18 14:44 Dose: 2,000 units Cefepime HCl 1 gm/ Dextrose 50 mls @ 100 mls/hr IVPB Q24H [facility]; Protocol Last Admin: 05/22/18 19:08 Dose: 100 mls/hr Insulin Human Regular (Novolin R) 0 unit SC ACHS [facility]; Protocol Last Admin: 05/23/18 12:24 Dose: Not Given Losartan Potassium (Cozaar) 100 mg PO QPM [facility] Last Admin: 05/22/18 17:04 Dose: 100 mg Metronidazole (Flagyl) 500 mg PO Q8 [facility]; Protocol Last Admin: 05/23/18 13:20 Dose: 500 mg Sevelamer Carbonate (Renvela) 800 mg PO TIDCC [facility] Last Admin: 05/23/18 13:00 Dose: 800 mg Sodium Hypochlorite (Dakins Solution 0.125%) 1 appl TOP Q12 [facility] Last Admin: 05/23/18 10:35 Dose: 1 appl Vitamin B Complex/Vit C/Folic Acid (Nephro-Naren) 1 tab PO 0800 [facility] Last Admin: 05/23/18 09:00 Dose: 1 tab - Labs Labs: 05/23/18 12:23 05/23/18 13:39 PT 13.2 SECONDS (9.7-12.2) H 05/20/18 11:24 INR 1.2 05/20/18 11:24 APTT 34 SECONDS (21-34) 05/13/18 07:46
--- NOTE | 2018-05-23 15:24 | PCM.SURG1 ---
Surgeon's Initial Post Op Note - Surgeon's Notes Surgeon: henrietta Diversional Therapist: 0 Type of Anesthesia: IV Sedation Anesthesia Administered By: gina Pre-Operative Diagnosis: malfunctioning shunt left arm Operative Findings: mid shunt stenosis 70% ( worst image). successful dilatation to 6mm Post-Operative Diagnosis: same Operation Performed: fistulagram left arm. balloon angioplasty 6mm balloon Specimen/Specimens Removed: 0 Estimated Blood Loss: EBL {In ML}: 5 Blood Products Given: N/A Drains Used: No Drains Post-Op Condition: Good Date of Surgery/Procedure: 05/23/18 Time of Surgery/Procedure: 15:24
[2018-05-24] MEDS: (Novolin R) Insulin Human Regular 100 units/ml vial SC SCH ×4 (08:06→22:15)
[2018-05-24] MEDS: Multivitamin Vitamin B Complex (Nephro-Vite) Tab PO SCH (08:37)
--- NOTE | 2018-05-24 09:36 | CP.PCM.PN ---
Subjective - Date & Time of Evaluation Date of Evaluation: 05/24/18 Time of Evaluation: 09:35 - Subjective Subjective: Podiatry Progress Note for Dr. Dior 68F seen at bedside for gangrenous right hallux. Seen resting comfortably. Denies any acute overnight events. States that she has no pain to her toe. Denies any new pedal complaints at this time. Denies any recent N/V/F/C/CP/SOB/D Objective - Vital Signs/Intake and Output Vital Signs (last 24 hours): Temp Pulse Resp BP Pulse Ox 98.2 F 63 20 131/69 100 05/24/18 07:00 05/24/18 07:01 05/24/18 07:00 05/24/18 07:00 05/24/18 07:00 Intake and Output: 05/24/18 05/24/18 06:59 18:59 Intake Total 400 Balance 400 - Medications Medications: Current Medications Carvedilol (Coreg) 3.125 mg PO BID [facility] Last Admin: 05/24/18 09:14 Dose: Not Given Dextrose (Dextrose 50% Inj) 0 ml IV STAT PRN; Protocol PRN Reason: Hypoglycemia Protocol Dextrose (Glutose 15) 0 gm PO ONCE PRN; Protocol PRN Reason: Hypoglycemia Protocol Epoetin Etienne (Procrit) 8,000 unit IV TTS [facility] Last Admin: 05/22/18 17:39 Dose: 8,000 unit Glucagon (Glucagen Diagnostic Kit) 0 mg IM STAT PRN; Protocol PRN Reason: Hypoglycemia Protocol Heparin Sodium (Porcine) (Heparin) 2,000 units IVP TTS [facility] Last Admin: 05/22/18 14:44 Dose: 2,000 units Cefepime HCl 1 gm/ Dextrose 50 mls @ 100 mls/hr IVPB Q24H [facility]; Protocol Last Admin: 05/23/18 18:26 Dose: 100 mls/hr Insulin Human Regular (Novolin R) 0 unit SC ACHS [facility]; Protocol Last Admin: 05/24/18 08:06 Dose: Not Given Losartan Potassium (Cozaar) 100 mg PO QPM [facility] Last Admin: 05/23/18 17:09 Dose: 100 mg Metronidazole (Flagyl) 500 mg PO Q8 [facility]; Protocol Last Admin: 05/24/18 05:56 Dose: 500 mg Sevelamer Carbonate (Renvela) 800 mg PO TIDCC [facility] Last Admin: 05/24/18 08:36 Dose: 800 mg Sodium Hypochlorite (Dakins Solution 0.125%) 1 appl TOP Q12 [facility] Last Admin: 05/24/18 09:16 Dose: 1 appl Vitamin B Complex/Vit C/Folic Acid (Nephro-Naren) 1 tab PO 0800 [facility] Last Admin: 05/24/18 08:37 Dose: 1 tab - Labs Labs: 05/23/18 12:23 05/23/18 13:39 PT 13.2 SECONDS (9.7-12.2) H 05/20/18 11:24 INR 1.2 05/20/18 11:24 APTT 34 SECONDS (21-34) 05/13/18 07:46 - Constitutional Appears: Well, Non-toxic, No Acute Distress - Head Exam Head Exam: ATRAUMATIC, NORMOCEPHALIC - Extremities Exam Additional comments: RLE focused exam: VASC: DP and PT non-palpable, CFT > 3 seconds to all digits, TG cool to cool, no edema noted NEURO: Epicritic and protective sensation diminished b/l DERM: gangrenous changes noted to the right hallux noted to be stable at this time, no malodor appreciated, positive probe to bone, no drainage noted, no other open lesions noted, no clinical signs of infection noted ORTHO: patient denies pain at this time, MSK 5/5 - Neurological Exam Neurological Exam: Alert, Awake, Oriented x3 - Psychiatric Exam Psychiatric exam: Normal Affect, Normal Mood Assessment and Plan - Assessment and Plan (Free Text) Assessment: 68F seen at bedside for gangrenous right hallux Plan: Patient seen and evaluated Plan discussed with Dr. Dior Afebrile, absent leukocytosis Continue abx per ID Patient tentatively scheduled for Pop/DP bypass on 05/26 Pending results of bypass, amputation of gangrenous hallux will be scheduled thereafter with Dr. Dior Toe dressed today with Daikins wet to dry Podiatry will continue to follow while patient in house
--- NOTE | 2018-05-24 09:58 | CP.PCM.PN ---
Subjective - Date & Time of Evaluation Date of Evaluation: 05/24/18 Time of Evaluation: 07:10 - Subjective Subjective: Surgery progress note for Dr. Romero Pt seen and examined this AM. No adverse event. Pt underwent fistulogram with balloon angioplasty of the left arm AVF yesterday with no complications. Pt denies any pain, SOB, chest pain, numbness or tingling of the right hand, or any other issues Objective - Vital Signs/Intake and Output Vital Signs (last 24 hours): Temp Pulse Resp BP Pulse Ox 98.2 F 63 20 131/69 100 05/24/18 07:00 05/24/18 07:01 05/24/18 07:00 05/24/18 07:00 05/24/18 07:00 Intake and Output: 05/24/18 05/24/18 06:59 18:59 Intake Total 400 Balance 400 - Medications Medications: Current Medications Carvedilol (Coreg) 3.125 mg PO BID [facility] Last Admin: 05/24/18 09:14 Dose: Not Given Dextrose (Dextrose 50% Inj) 0 ml IV STAT PRN; Protocol PRN Reason: Hypoglycemia Protocol Dextrose (Glutose 15) 0 gm PO ONCE PRN; Protocol PRN Reason: Hypoglycemia Protocol Epoetin Etienne (Procrit) 8,000 unit IV TTS [facility] Last Admin: 05/22/18 17:39 Dose: 8,000 unit Glucagon (Glucagen Diagnostic Kit) 0 mg IM STAT PRN; Protocol PRN Reason: Hypoglycemia Protocol Heparin Sodium (Porcine) (Heparin) 2,000 units IVP TTS [facility] Last Admin: 05/22/18 14:44 Dose: 2,000 units Cefepime HCl 1 gm/ Dextrose 50 mls @ 100 mls/hr IVPB Q24H [facility]; Protocol Last Admin: 05/23/18 18:26 Dose: 100 mls/hr Insulin Human Regular (Novolin R) 0 unit SC ACHS [facility]; Protocol Last Admin: 05/24/18 08:06 Dose: Not Given Losartan Potassium (Cozaar) 100 mg PO QPM [facility] Last Admin: 05/23/18 17:09 Dose: 100 mg Metronidazole (Flagyl) 500 mg PO Q8 [facility]; Protocol Last Admin: 05/24/18 05:56 Dose: 500 mg Sevelamer Carbonate (Renvela) 800 mg PO TIDCC [facility] Last Admin: 05/24/18 08:36 Dose: 800 mg Sodium Hypochlorite (Dakins Solution 0.125%) 1 appl TOP Q12 [facility] Last Admin: 05/24/18 09:16 Dose: 1 appl Vitamin B Complex/Vit C/Folic Acid (Nephro-Naren) 1 tab PO 0800 [facility] Last Admin: 05/24/18 08:37 Dose: 1 tab - Labs Labs: 05/23/18 12:23 05/23/18 13:39 PT 13.2 SECONDS (9.7-12.2) H 05/20/18 11:24 INR 1.2 05/20/18 11:24 APTT 34 SECONDS (21-34) 05/13/18 07:46 - Constitutional Appears: Well, Non-toxic, No Acute Distress - Head Exam Head Exam: ATRAUMATIC, NORMOCEPHALIC - Eye Exam Eye Exam: Normal appearance. absent: Conjunctival injection, Scleral icterus - ENT Exam ENT Exam: Mucous Membranes Moist, Normal Oropharynx - Respiratory Exam Respiratory Exam: NORMAL BREATHING PATTERN. absent: Accessory Muscle Use, Respiratory Distress - Cardiovascular Exam Cardiovascular Exam: RRR - GI/Abdominal Exam GI & Abdominal Exam: Soft. absent: Distended, Tenderness - Extremities Exam Extremities Exam: absent: Calf Tenderness, Pedal Edema Additional comments: left AVF with palable strong thrill, hand normal color and warm to the touch, gross sensation and motor function intact - Neurological Exam Neurological Exam: Alert, Awake, Oriented x3 - Psychiatric Exam Psychiatric exam: Normal Affect, Normal Mood - Skin Skin Exam: Dry, Normal Color, Warm Assessment and Plan - Assessment and Plan (Free Text) Assessment: 68F with ESRD and PVD POD#1 s/p fistulogram with balloon angioplasty Plan: May use AVF for dialysis Plan for OR on Saturday for popliteal-DP bypass on the right Continue current medical management Continue to trend CBC and Chemistry Discussed with Dr. Heather Castro, PGY2
--- NOTE | 2018-05-24 13:24 | CP.PCM.PN ---
Subjective - Date & Time of Evaluation Date of Evaluation: 05/23/18 Time of Evaluation: 17:20 - Subjective Subjective: Patient was seen and examined personally by me Patient denies chest pain and dyspnea Objective - Vital Signs/Intake and Output Vital Signs (last 24 hours): Temp Pulse Resp BP Pulse Ox 98.4 F 84 20 120/71 94 L 05/23/18 00:00 05/23/18 00:16 05/23/18 00:00 05/23/18 00:00 05/23/18 00:00 Intake and Output: 05/23/18 05/23/18 06:59 18:59 Intake Total 550 Balance 550 - Medications Medications: Current Medications Carvedilol (Coreg) 3.125 mg PO BID [facility] Last Admin: 05/22/18 18:19 Dose: 3.125 mg Dextrose (Dextrose 50% Inj) 0 ml IV STAT PRN; Protocol PRN Reason: Hypoglycemia Protocol Dextrose (Glutose 15) 0 gm PO ONCE PRN; Protocol PRN Reason: Hypoglycemia Protocol Epoetin Etienne (Procrit) 8,000 unit IV TTS [facility] Last Admin: 05/22/18 17:39 Dose: 8,000 unit Glucagon (Glucagen Diagnostic Kit) 0 mg IM STAT PRN; Protocol PRN Reason: Hypoglycemia Protocol Heparin Sodium (Porcine) (Heparin) 2,000 units IVP TTS [facility] Last Admin: 05/22/18 14:44 Dose: 2,000 units Cefepime HCl 1 gm/ Dextrose 50 mls @ 100 mls/hr IVPB Q24H [facility]; Protocol Last Admin: 05/22/18 19:08 Dose: 100 mls/hr Insulin Human Regular (Novolin R) 0 unit SC ACHS [facility]; Protocol Last Admin: 05/22/18 21:44 Dose: Not Given Losartan Potassium (Cozaar) 100 mg PO QPM [facility] Last Admin: 05/22/18 17:04 Dose: 100 mg Metronidazole (Flagyl) 500 mg PO Q8 [facility]; Protocol Last Admin: 05/23/18 05:20 Dose: 500 mg Sevelamer Carbonate (Renvela) 800 mg PO TIDCC [facility] Last Admin: 05/22/18 18:19 Dose: 800 mg Sodium Hypochlorite (Dakins Solution 0.125%) 1 appl TOP Q12 [facility] Last Admin: 05/22/18 21:15 Dose: 1 appl Vitamin B Complex/Vit C/Folic Acid (Nephro-Naren) 1 tab PO 0800 [facility] Last Admin: 05/22/18 09:00 Dose: 1 tab - Labs Labs: 05/22/18 07:34 05/22/18 07:34 PT 13.2 SECONDS (9.7-12.2) H 05/20/18 11:24 INR 1.2 05/20/18 11:24 APTT 34 SECONDS (21-34) 05/13/18 07:46 - Additional Findings Additional findings: - Constitutional Appears: No Acute Distress - Head Exam Head Exam: NORMAL INSPECTION - Eye Exam Eye Exam: EOMI, Normal appearance - ENT Exam ENT Exam: Mucous Membranes Moist - Respiratory Exam Respiratory Exam: Clear to Ausculation Bilateral, NORMAL BREATHING PATTERN. absent: Rhonchi, Wheezes, Respiratory Distress - Cardiovascular Exam Cardiovascular Exam: REGULAR RHYTHM, +S1, +S2 - GI/Abdominal Exam GI & Abdominal Exam: Soft, Normal Bowel Sounds. absent: Distended, Firm, Guarding, Tenderness - Extremities Exam Extremities Exam: absent: Pedal Edema, Tenderness Additional comments: RLE- dressing clean, dry, intact; diminished pulses - Neurological Exam Neurological Exam: Alert, Awake, Oriented x3 - Psychiatric Exam Psychiatric exam: Normal Affect, Normal Mood - Skin Skin Exam: Dry, Normal Color, Warm Assessment and Plan - Assessment and Plan (Free Text) Plan: Gangrene of toe - Podiatry consult- Dr. Dior. recs appreciated. * Podiatric surgical intervention not recommended at this time * Wound cleansed and dressed with Dakin's solution wet to dry, Q12 - Vascular sx consult- Dr. Romero. recs appreciated. * s/p aortofemoral angiogram w/ selective catherization of right femoral artery on 05/16. No intervention was done. Pt found to have severe tibial disease. Open to trifurcation. * Patient may need pop-DP bypass pending vein mapping results - Cardiology consulted for cardiac clearance- Dr. Ledesma; help appreciated * cath shows left main patent, LAD with 50 percent stenosis, left circumflex om 1 100 percent, occluded distal left circumflex 60 percent, ef of 30 percent, pt is moderate cardiac risk to proceed - ID consult- Dr. Nunez. recs appreciated. - Foot X-ray: soft tissue swelling noted, MRI recommended - LE US: severely decreased perfusion noted to the RLE; arterial wall calcifications noted to the left - Blood cx x2: negative to date - Wound cx: + proteus mirabilis citrobacter freudii - Flagyl 250mg IV Q8 h *patient is tentatively scheduled for OR on Saturday 05/26 with moderate risk PVD - Vascular surgery consult- Dr. Romero. recs appreciated. - LE US: severely decreased perfusion noted to the RLE; arterial wall calcifications noted to the left - s/p aortofemoral angiogram w/ selective catherization of right femoral artery on 05/16. No intervention was done. Pt found to have severe tibial disease. Open to trifurcation. ESRD on Dialysis - Nephrology consult- Dr. Caro; help appreciated - Continue Nephrovite, Sevelamer - Losartan 100mg QPM - Continue dialysis TTS Diabetes Mellitus - HGB a1c 6.7 - ISS - Hypoglycemia protocol - Accuchecks CAD - Continue Coreg 3.125mg PO BID CHF;chronic not in acute exacerbation - Cardio consult- Dr. Ledesma; recs appreciated. - Continue Coreg 3.125mg PO BID Anemia - Likely secondary to CKD - Procrit 8000 IV TTS - Transfusions as needed Hypertension - Continue Losartan 100mg QPM Prophylaxis - Heart healthy diet - PT/OT Patient s/p cardiac cath 1. L Main: Patent 2. LAD: Mid 50% stenosis 3. 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 RCA: Proximal 50% 5. LV: EF 30% Patient is moderate cardiac risk for LE Vascular bypass under general anaesthe johanna Avoid Fluid overload If benefit outweighs the risk please proceed with the surgery Thank you Objective - Vital Signs/Intake and Output Vital Signs (last 24 hours): Temp Pulse Resp BP Pulse Ox 98.2 F 63 20 131/69 100 05/24/18 07:00 05/24/18 07:01 05/24/18 07:00 05/24/18 07:00 05/24/18 07:00 Intake and Output: 05/24/18 05/24/18 06:59 18:59 Intake Total 400 Balance 400 - Medications Medications: Current Medications Carvedilol (Coreg) 3.125 mg PO BID [facility] Last Admin: 05/24/18 09:14 Dose: Not Given Dextrose (Dextrose 50% Inj) 0 ml IV STAT PRN; Protocol PRN Reason: Hypoglycemia Protocol Dextrose (Glutose 15) 0 gm PO ONCE PRN; Protocol PRN Reason: Hypoglycemia Protocol Epoetin Etienne (Procrit) 8,000 unit IV TTS [facility] Last Admin: 05/22/18 17:39 Dose: 8,000 unit Glucagon (Glucagen Diagnostic Kit) 0 mg IM STAT PRN; Protocol PRN Reason: Hypoglycemia Protocol Heparin Sodium (Porcine) (Heparin) 2,000 units IVP TTS [facility] Last Admin: 05/22/18 14:44 Dose: 2,000 units Cefepime HCl 1 gm/ Dextrose 50 mls @ 100 mls/hr IVPB Q24H [facility]; Protocol Last Admin: 05/23/18 18:26 Dose: 100 mls/hr Insulin Human Regular (Novolin R) 0 unit SC ACHS [facility]; Protocol Last Admin: 05/24/18 08:06 Dose: Not Given Losartan Potassium (Cozaar) 100 mg PO QPM [facility] Last Admin: 05/23/18 17:09 Dose: 100 mg Metronidazole (Flagyl) 500 mg PO Q8 [facility]; Protocol Last Admin: 05/24/18 05:56 Dose: 500 mg Sevelamer Carbonate (Renvela) 800 mg PO TIDCC [facility] Last Admin: 05/24/18 12:54 Dose: Not Given Sodium Hypochlorite (Dakins Solution 0.125%) 1 appl TOP Q12 [facility] Last Admin: 05/24/18 09:16 Dose: 1 appl Vitamin B Complex/Vit C/Folic Acid (Nephro-Naren) 1 tab PO 0800 [facility] Last Admin: 05/24/18 08:37 Dose: 1 tab - Labs Labs: 05/23/18 12:23 05/23/18 13:39 PT 13.2 SECONDS (9.7-12.2) H 05/20/18 11:24 INR 1.2 05/20/18 11:24 APTT 34 SECONDS (21-34) 05/13/18 07:46
--- NOTE | 2018-05-24 13:29 | VAS ---
DATE: 05/23/2018 PROCEDURE: Fistulogram. PREOPERATIVE DIAGNOSIS: Spectrographic stenosis. POSTOPERATIVE DIAGNOSIS: Spectrographic stenosis. PROCEDURE CARRIED OUT: Fistulogram left arm and balloon angioplasty of mid graft stenosis of approximately 60%. SURGEON: Devon Romero Jr., MD. AUTOMATIC BLOCKER: None. ANESTHESIOLOGIST: Ms. Arcos. ANESTHESIA: Local sedation. INDICATION: The patient is a 68-year-old woman who has renal insufficiency, presently dialyzed via AV graft in the left upper arm. Last time, she had persistent high venous pressures. OPERATIVE FINDINGS: 1. Sensor veins were widely patent. 2. Arterial anastomosis is widely patent without any evidence of significant stenosis. The mid graft area had approximately 60 to 70% stenosis seen on the worst views. Many of the views appeared as if there is minimal disease, but the worst view showed the worse problem. We were initially unable to cross this with a standard Bentson wire and as a result used Glidewire to do so. After this had been done, we then deployed a 6-mm balloon here with excellent cosmetic results. After this was done, we took the subsequent image informing widely patent site and the catheter was withdrawn. Initially, we had punctured with the micropuncture device and inserted a short ____ catheter. Heparin was not given separately. The patient tolerated the procedure well. OPERATION CARRIED OUT: Fistulogram, left arm and balloon angioplasty of end graft stenosis. Devon Romero Jr., MD
[2018-05-24] MEDS: EPOETIN ALFA 4,000 UNIT/ML ML Dialysis IV SCH (13:46)
--- NOTE | 2018-05-24 15:09 | CP.PCM.PN ---
Subjective - Date & Time of Evaluation Date of Evaluation: 05/24/18 Time of Evaluation: 12:30 - Subjective Subjective: Nephrology Consultation Note: Assessment: Stable Rt foot great toe necrosis/gangrene with PVD s/p angioplasty for AVF stenosis 05/23/18 Diabetic chronic Kidney Disease (E11.22) Hypertensive Chronic Kidney Disease (I12.0) End stage renal disease (N18.6) dependence on hemodialysis (Z99.2) (TTS) via AVF Anemia (D64.9), Hyperphosphatemia (E83.39), Secondary Hyperparathyroidism (E21.1), HTN (I12.0) Obesity, sys CHF with moderate to severe TR Plan: seen on HD continue TTS Continue with Nephrovite 1 tab/day. pt had severe allergic reaction to polysulphone dialyzers (cardiac arrest) in past, hence uses only [place] Exeltra. PRBC as needed for anemia. on [place] with dialysis Continue with phos binders BP control with meds as ordered. Patient on RAAS kam as losartan Glycemic control, Dialysis consistent diet S: seen on HD tolerating tx Physical Examination: General Appearance: Comfortable, in no acute respiratory distress, co-operative . Vitals reviewed and noted as below Head; Atraumatic, normocephalic ENT: no ulcers no thrush. Tongue is midline. Oropharynx: no rash or ulcers. EYES: Pupils are equal, round and reactive to light accommodation. Eye muscles and extraocular movement intact. Sclera is anicteric. Neck; supple no lymphadenopathy, no thyromegaly or bruit Lungs: Normal respiratory rate/effort. Breath sounds bilateral equal and clear Heart: Normal rate. s1s2 normal. No rub or gallop. Extremities: pedal edema +. No varicose veins. Rt foot in dressing Neurological: Patient is alert, awake and oriented to person, place and time. No focal deficit. Strength bilateral appropriate and equal Skin: Warm and dry. Normal turgor. No rash. Palpitation: Normal elasticity for age Abdomen: Abdomen is soft. Bowel sounds +. There is no abdominal tenderness, no guarding/rigidity or organomegaly Psych: normal insight and normal affect/mood MSK: no joint tenderness or swelling. Digits and nails normal, no deformity : kidney or bladder not palpable Access: AVF Labs/imaging reviewed. Past medical history, past surgical history, family history, social history, allergy reviewed and noted as below Family Hx: no hx of CKD. Non contributory Objective - Vital Signs/Intake and Output Vital Signs (last 24 hours): Temp Pulse Resp BP Pulse Ox 98.7 F 72 19 121/65 97 05/24/18 14:20 05/24/18 14:20 05/24/18 14:20 05/24/18 14:20 05/24/18 14:20 Intake and Output: 05/24/18 05/24/18 06:59 18:59 Intake Total 400 Balance 400 - Medications Medications: Current Medications Carvedilol (Coreg) 3.125 mg PO BID [facility] Last Admin: 05/24/18 09:14 Dose: Not Given Dextrose (Dextrose 50% Inj) 0 ml IV STAT PRN; Protocol PRN Reason: Hypoglycemia Protocol Dextrose (Glutose 15) 0 gm PO ONCE PRN; Protocol PRN Reason: Hypoglycemia Protocol Epoetin Etienne (Procrit) 8,000 unit IV TTS [facility] Last Admin: 05/24/18 13:46 Dose: 8,000 unit Glucagon (Glucagen Diagnostic Kit) 0 mg IM STAT PRN; Protocol PRN Reason: Hypoglycemia Protocol Heparin Sodium (Porcine) (Heparin) 2,000 units IVP TTS [facility] Last Admin: 05/24/18 13:44 Dose: 2,000 units Cefepime HCl 1 gm/ Dextrose 50 mls @ 100 mls/hr IVPB Q24H [facility]; Protocol Last Admin: 05/23/18 18:26 Dose: 100 mls/hr Insulin Human Regular (Novolin R) 0 unit SC ACHS [facility]; Protocol Last Admin: 05/24/18 14:37 Dose: 1 units Losartan Potassium (Cozaar) 100 mg PO QPM [facility] Last Admin: 05/23/18 17:09 Dose: 100 mg Metronidazole (Flagyl) 500 mg PO Q8 [facility]; Protocol Last Admin: 05/24/18 14:37 Dose: 500 mg Sevelamer Carbonate (Renvela) 800 mg PO TIDCC [facility] Last Admin: 05/24/18 12:54 Dose: Not Given Sodium Hypochlorite (Dakins Solution 0.125%) 1 appl TOP Q12 [facility] Last Admin: 05/24/18 09:16 Dose: 1 appl Vitamin B Complex/Vit C/Folic Acid (Nephro-Naren) 1 tab PO 0800 [facility] Last Admin: 05/24/18 08:37 Dose: 1 tab - Labs Labs: 05/23/18 12:23 05/23/18 13:39 PT 13.2 SECONDS (9.7-12.2) H 05/20/18 11:24 INR 1.2 05/20/18 11:24 APTT 34 SECONDS (21-34) 05/13/18 07:46
[2018-05-25] MEDS: (Novolin R) Insulin Human Regular 100 units/ml vial SC SCH ×4 (08:30→21:47)
[2018-05-25] MEDS: Multivitamin Vitamin B Complex (Nephro-Vite) Tab PO SCH (08:54)
[2018-05-25 17:59] LABS: ALB/GLOB RATIO 0.9 (1.0-2.1); ALBUMIN 3.3 g/dL (3.5-5.0); CALCIUM 8.2 mg/dl (8.6-10.4)
--- NOTE | 2018-05-25 22:05 | CP.PCM.PN ---
Subjective - Date & Time of Evaluation Date of Evaluation: 05/25/18 Time of Evaluation: 08:30 - Subjective Subjective: Patient without cardiac events No chest pain and dyspnea Physical Examination - Additional Findings Additional findings: - Constitutional Appears: No Acute Distress - Head Exam Head Exam: NORMAL INSPECTION - Eye Exam Eye Exam: EOMI, Normal appearance - ENT Exam ENT Exam: Mucous Membranes Moist - Respiratory Exam Respiratory Exam: Clear to Ausculation Bilateral, NORMAL BREATHING PATTERN. absent: Rhonchi, Wheezes, Respiratory Distress - Cardiovascular Exam Cardiovascular Exam: REGULAR RHYTHM, +S1, +S2 - GI/Abdominal Exam GI & Abdominal Exam: Soft, Normal Bowel Sounds. absent: Distended, Firm, Guarding, Tenderness - Extremities Exam Extremities Exam: absent: Pedal Edema, Tenderness Additional comments: RLE- dressing clean, dry, intact; diminished pulses - Neurological Exam Neurological Exam: Alert, Awake, Oriented x3 - Psychiatric Exam Psychiatric exam: Normal Affect, Normal Mood - Skin Skin Exam: Dry, Normal Color, Warm Assessment and Plan - Assessment and Plan (Free Text) Plan: Gangrene of toe - Podiatry consult- Dr. Dior. recs appreciated. * Podiatric surgical intervention not recommended at this time * Wound cleansed and dressed with Dakin's solution wet to dry, Q12 - Vascular sx consult- Dr. Romero. recs appreciated. * s/p aortofemoral angiogram w/ selective catherization of right femoral artery on 05/16. No intervention was done. Pt found to have severe tibial disease. Open to trifurcation. * Patient may need pop-DP bypass pending vein mapping results - ID consult- Dr. Nunez. recs appreciated. - Foot X-ray: soft tissue swelling noted, MRI recommended - LE US: severely decreased perfusion noted to the RLE; arterial wall calcifications noted to the left - Blood cx x2: negative to date - Wound cx: + proteus mirabilis citrobacter freudii - Flagyl 250mg IV Q8 h *patient is tentatively scheduled for OR on Saturday 05/26 with moderate risk PVD - Vascular surgery consult- Dr. Romero. recs appreciated. - LE US: severely decreased perfusion noted to the RLE; arterial wall calcifications noted to the left - s/p aortofemoral angiogram w/ selective catherization of right femoral artery on 05/16. No intervention was done. Pt found to have severe tibial disease. Open to trifurcation. ESRD on Dialysis - Nephrology consult- Dr. Caro; help appreciated - Continue Nephrovite, Sevelamer - Losartan 100mg QPM - Continue dialysis TTS Diabetes Mellitus - HGB a1c 6.7 - ISS - Hypoglycemia protocol - Accuchecks CAD - Continue Coreg 3.125mg PO BID CHF;chronic not in acute exacerbation - Continue Coreg 3.125mg PO BID Anemia - Likely secondary to CKD - Procrit 8000 IV TTS - Transfusions as needed Hypertension - Continue Losartan 100mg QPM Prophylaxis - Heart healthy diet - PT/OT Patient s/p cardiac cath 1. L Main: Patent 2. LAD: Mid 50% stenosis 3. 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 RCA: Proximal 50% 5. LV: EF 55% Patient is moderate cardiac risk for LE Vascular bypass under general anaesthesia Avoid Fluid overload If benefit outweighs the risk please proceed with the surgery Thank you Objective - Vital Signs/Intake and Output Vital Signs (last 24 hours): Temp Pulse Resp BP Pulse Ox 98.6 F 82 20 137/73 98 05/25/18 15:00 05/25/18 15:52 05/25/18 15:00 05/25/18 15:00 05/25/18 15:00 - Medications Medications: Current Medications Carvedilol (Coreg) 3.125 mg PO BID [facility] Last Admin: 05/25/18 17:11 Dose: 3.125 mg Dextrose (Dextrose 50% Inj) 0 ml IV STAT PRN; Protocol PRN Reason: Hypoglycemia Protocol Dextrose (Glutose 15) 0 gm PO ONCE PRN; Protocol PRN Reason: Hypoglycemia Protocol Epoetin Etienne (Procrit) 8,000 unit IV TTS [facility] Last Admin: 05/24/18 13:46 Dose: 8,000 unit Glucagon (Glucagen Diagnostic Kit) 0 mg IM STAT PRN; Protocol PRN Reason: Hypoglycemia Protocol Heparin Sodium (Porcine) (Heparin) 2,000 units IVP TTS [facility] Last Admin: 05/24/18 13:44 Dose: 2,000 units Cefepime HCl 1 gm/ Dextrose 50 mls @ 100 mls/hr IVPB Q24H [facility]; Protocol Last Admin: 05/25/18 17:11 Dose: 100 mls/hr Insulin Human Regular (Novolin R) 0 unit SC ACHS [facility]; Protocol Last Admin: 05/25/18 21:47 Dose: Not Given Losartan Potassium (Cozaar) 100 mg PO QPM [facility] Last Admin: 05/25/18 17:10 Dose: 100 mg Metronidazole (Flagyl) 500 mg PO Q8 [facility]; Protocol Last Admin: 05/25/18 21:33 Dose: 500 mg Sevelamer Carbonate (Renvela) 800 mg PO TIDCC [facility] Last Admin: 05/25/18 17:10 Dose: 800 mg Sodium Hypochlorite (Dakins Solution 0.125%) 1 appl TOP Q12 [facility] Last Admin: 05/25/18 21:33 Dose: 1 appl Vitamin B Complex/Vit C/Folic Acid (Nephro-Naren) 1 tab PO 0800 [facility] Last Admin: 05/25/18 08:54 Dose: 1 tab - Labs Labs: 05/23/18 12:23 05/25/18 17:47 PT 13.2 SECONDS (9.7-12.2) H 05/20/18 11:24 INR 1.2 05/20/18 11:24 APTT 34 SECONDS (21-34) 05/13/18 07:46
--- NOTE | 2018-05-25 22:05 | CP.PCM.PN ---
Subjective - Date & Time of Evaluation Date of Evaluation: 05/24/18 Time of Evaluation: 08:15 - Subjective Subjective: Patient without cardiac events No chest pain and dyspnea Physical Examination - Additional Findings Additional findings: - Constitutional Appears: No Acute Distress - Head Exam Head Exam: NORMAL INSPECTION - Eye Exam Eye Exam: EOMI, Normal appearance - ENT Exam ENT Exam: Mucous Membranes Moist - Respiratory Exam Respiratory Exam: Clear to Ausculation Bilateral, NORMAL BREATHING PATTERN. absent: Rhonchi, Wheezes, Respiratory Distress - Cardiovascular Exam Cardiovascular Exam: REGULAR RHYTHM, +S1, +S2 - GI/Abdominal Exam GI & Abdominal Exam: Soft, Normal Bowel Sounds. absent: Distended, Firm, Guarding, Tenderness - Extremities Exam Extremities Exam: absent: Pedal Edema, Tenderness Additional comments: RLE- dressing clean, dry, intact; diminished pulses - Neurological Exam Neurological Exam: Alert, Awake, Oriented x3 - Psychiatric Exam Psychiatric exam: Normal Affect, Normal Mood - Skin Skin Exam: Dry, Normal Color, Warm Assessment and Plan - Assessment and Plan (Free Text) Plan: Gangrene of toe - Podiatry consult- Dr. Dior. recs appreciated. * Podiatric surgical intervention not recommended at this time * Wound cleansed and dressed with Dakin's solution wet to dry, Q12 - Vascular sx consult- Dr. Romero. recs appreciated. * s/p aortofemoral angiogram w/ selective catherization of right femoral artery on 05/16. No intervention was done. Pt found to have severe tibial disease. Open to trifurcation. * Patient may need pop-DP bypass pending vein mapping results - ID consult- Dr. Nunez. recs appreciated. - Foot X-ray: soft tissue swelling noted, MRI recommended - LE US: severely decreased perfusion noted to the RLE; arterial wall calcifications noted to the left - Blood cx x2: negative to date - Wound cx: + proteus mirabilis citrobacter freudii - Flagyl 250mg IV Q8 h *patient is tentatively scheduled for OR on Saturday 05/26 with moderate risk PVD - Vascular surgery consult- Dr. Romero. recs appreciated. - LE US: severely decreased perfusion noted to the RLE; arterial wall calcifications noted to the left - s/p aortofemoral angiogram w/ selective catherization of right femoral artery on 05/16. No intervention was done. Pt found to have severe tibial disease. Open to trifurcation. ESRD on Dialysis - Nephrology consult- Dr. Caro; help appreciated - Continue Nephrovite, Sevelamer - Losartan 100mg QPM - Continue dialysis TTS Diabetes Mellitus - HGB a1c 6.7 - ISS - Hypoglycemia protocol - Accuchecks CAD - Continue Coreg 3.125mg PO BID CHF;chronic not in acute exacerbation - Continue Coreg 3.125mg PO BID Anemia - Likely secondary to CKD - Procrit 8000 IV TTS - Transfusions as needed Hypertension - Continue Losartan 100mg QPM Prophylaxis - Heart healthy diet - PT/OT Patient s/p cardiac cath 1. L Main: Patent 2. LAD: Mid 50% stenosis 3. 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 RCA: Proximal 50% 5. LV: EF 55% Patient is moderate cardiac risk for LE Vascular bypass under general anaesthesia Avoid Fluid overload If benefit outweighs the risk please proceed with the surgery Thank you Objective - Vital Signs/Intake and Output Vital Signs (last 24 hours): Temp Pulse Resp BP Pulse Ox 98.6 F 82 20 137/73 98 05/25/18 15:00 05/25/18 15:52 05/25/18 15:00 05/25/18 15:00 05/25/18 15:00 - Medications Medications: Current Medications Carvedilol (Coreg) 3.125 mg PO BID [facility] Last Admin: 05/25/18 17:11 Dose: 3.125 mg Dextrose (Dextrose 50% Inj) 0 ml IV STAT PRN; Protocol PRN Reason: Hypoglycemia Protocol Dextrose (Glutose 15) 0 gm PO ONCE PRN; Protocol PRN Reason: Hypoglycemia Protocol Epoetin Etienne (Procrit) 8,000 unit IV TTS [facility] Last Admin: 05/24/18 13:46 Dose: 8,000 unit Glucagon (Glucagen Diagnostic Kit) 0 mg IM STAT PRN; Protocol PRN Reason: Hypoglycemia Protocol Heparin Sodium (Porcine) (Heparin) 2,000 units IVP TTS [facility] Last Admin: 05/24/18 13:44 Dose: 2,000 units Cefepime HCl 1 gm/ Dextrose 50 mls @ 100 mls/hr IVPB Q24H [facility]; Protocol Last Admin: 05/25/18 17:11 Dose: 100 mls/hr Insulin Human Regular (Novolin R) 0 unit SC ACHS [facility]; Protocol Last Admin: 05/25/18 21:47 Dose: Not Given Losartan Potassium (Cozaar) 100 mg PO QPM [facility] Last Admin: 05/25/18 17:10 Dose: 100 mg Metronidazole (Flagyl) 500 mg PO Q8 [facility]; Protocol Last Admin: 05/25/18 21:33 Dose: 500 mg Sevelamer Carbonate (Renvela) 800 mg PO TIDCC [facility] Last Admin: 05/25/18 17:10 Dose: 800 mg Sodium Hypochlorite (Dakins Solution 0.125%) 1 appl TOP Q12 [facility] Last Admin: 05/25/18 21:33 Dose: 1 appl Vitamin B Complex/Vit C/Folic Acid (Nephro-Naren) 1 tab PO 0800 [facility] Last Admin: 05/25/18 08:54 Dose: 1 tab - Labs Labs: 05/23/18 12:23 05/25/18 17:47 PT 13.2 SECONDS (9.7-12.2) H 05/20/18 11:24 INR 1.2 05/20/18 11:24 APTT 34 SECONDS (21-34) 05/13/18 07:46
--- NOTE | 2018-05-26 00:40 | CARDCATH ---
PROCEDURE DATE: 05/20/2018 PROCEDURES: 1. Left heart catheterization. 2. Coronary angiogram. CLINICAL INDICATIONS: 1. Dyspnea. 2. Abnormal stress test. 3. Coronary artery disease. 4. Hypertension. 5. Hyperlipidemia. 6. PAD. 7. Preop cardiac risk assessment. REFERRING PHYSICIAN: Maite Denis MD PERFORMING PHYSICIAN: Arnulfo Ledesma MD DESCRIPTION OF PROCEDURE: After informed consent, the patient was prepped and draped in the usual sterile fashion. Lidocaine 2% was given in the right groin for local anesthesia. Using micropuncture technique, 6-Kenyan sheath was introduced into right common femoral artery. A JR4 6-Kenyan diagnostic catheter was crossed into left ventricle across the aortic valve. LV end-diastolic pressure measured. Contrast injected, and LV angiogram was done. The catheter was pulled back across the aortic valve. Gradient across the aortic valve was measured. The same catheter was engaged into the right coronary artery. Contrast injected, and right coronary angiogram was done. Then, the catheter was exchanged to JL4 6-Kenyan diagnostic catheter. The catheter was engaged into the left main coronary artery. Contrast injected, and left coronary angiogram was done. The patient tolerated the procedures well. Post procedure, Mynx closure device was deployed in the right groin with excellent hemostasis. Radiological supervision and radiological interpretation of the coronary imaging was done. FINDINGS: 1. Left main coronary artery is patent. 2. Mid LAD has 60% eccentric stenosis. Proximal and distal LAD is patent. Diagonal branches are patent. 3. Left circumflex has a distal 50% stenosis. OM2 which is 100% occluded. This is a chronic total occlusion. There are [id number]-timl collaterals. 4. Right coronary artery is dominant. Proximal right coronary artery has 50% concentric narrowing. Mid right coronary artery has a 60% concentric narrowing. PDA and PLV branches are patent. 5. LV ejection fraction is approximately 55%. Mild global hypokinesis. EDP is 18. No gradient across the aortic valve. IMPRESSION AND PLAN: 1. Coronary artery disease as described above. Medical management for now. 2. Mildly decreased left ventricular ejection fraction. Approximately 50-55% ejection fraction. 3. I recommend medical management. Arnulfo Ledesma MD [facility] # [id number]
[2018-05-26 07:06] LABS: BASO # 0.1 K/uL (0.0-0.2); BASO % 1.3 % (0.0-2.0); EOS # 0.3 K/uL (0.0-0.7); EOS % 3.6 % (0.0-4.0); HEMOGLOBIN 9.6 g/dL (11.0-16.0); LYMPH # 1.5 K/uL (1.0-4.3); MEAN CELL VOLUME 100.2 fL (81.0-99.0); MEAN CORPUSCULAR HEMOGLOBIN 32.7 pg (27.0-31.0); MEAN CORPUSCULAR HGB CONC 32.7 g/dL (33.0-37.0); MEAN PLATELET VOLUME 7.6 fL (7.2-11.7); MONO # 0.9 K/uL (0.0-0.8); MONO % 12.1 % (0.0-10.0); NEUT # 4.7 K/uL (1.8-7.0); RBC 2.93 Mil/uL (3.80-5.20); RED CELL DISTRIBUTION WIDTH 14.8 % (11.5-14.5); WHITE BLOOD COUNT 7.5 K/uL (4.8-10.8)
[2018-05-26] MEDS: (Novolin R) Insulin Human Regular 100 units/ml vial SC SCH ×4 (07:20→22:00)
[2018-05-26] MEDS ORDERED: Propofol 10 mg/ml Inj (20 ML) ONE (07:30)
[2018-05-26] MEDS ORDERED: Midazolam 2 MG/2 ML VIAL ONE (07:30)
[2018-05-26] MEDS ORDERED: Rocuronium 10 mg/ml (10 ml) ONE (07:44)
[2018-05-26] MEDS ORDERED: Etomidate 20 mg/10ml Inj IV ONE (07:44)
[2018-05-26] MEDS ORDERED: Iodixanol 320 MG/ML 200 ML BOTTLE IV ONE (07:49)
[2018-05-26] MEDS ORDERED: ceFAZolin IV 1 gm in Dextrose 0 GM/0 ML BAG IVPB ONE (07:49)
[2018-05-26] MEDS ORDERED: HEPARIN-NS 5,000 UNITS/500 ML 5,000 UNIT/500 ML BAG IV ONE ×2 (07:49→11:30)
[2018-05-26 07:58] LABS: ALT/SGPT < 6 U/L (9-52)
[2018-05-26 08:00] LABS: ALB/GLOB RATIO 0.8 (1.0-2.1); ALBUMIN 3.1 g/dL (3.5-5.0); AST/SGOT 35 U/L (14-36); BLOOD UREA NITROGEN 53 mg/dL (7-17); CALCIUM 8.6 mg/dl (8.6-10.4); GFR NON-AFRICAN AMERICAN 6
[2018-05-26] MEDS: Multivitamin Vitamin B Complex (Nephro-Vite) Tab PO SCH (08:31)
--- NOTE | 2018-05-26 12:51 | CP.PCM.PN ---
Subjective - Date & Time of Evaluation Date of Evaluation: 05/26/18 Time of Evaluation: 12:51 - Subjective Subjective: PGY3 Note for Dr. Denis Patient seen and examined this Am before surgery; patient is anxious for surgery but has no complaints; denies fevers/chills, TRAVIS, CP, SOb, abdominal pain, N/V/D, dysuria/freq/urg or lower extremity swelling. Objective - Vital Signs/Intake and Output Vital Signs (last 24 hours): Temp Pulse Resp BP Pulse Ox 98.6 F 71 20 144/73 95 05/26/18 00:00 05/26/18 07:20 05/26/18 00:00 05/26/18 00:00 05/26/18 00:00 Intake and Output: 05/26/18 05/26/18 06:59 18:59 Intake Total 500 0 Balance 500 0 - Medications Medications: Current Medications Carvedilol (Coreg) 3.125 mg PO BID [facility] Last Admin: 05/26/18 09:34 Dose: Not Given Dextrose (Dextrose 50% Inj) 0 ml IV STAT PRN; Protocol PRN Reason: Hypoglycemia Protocol Dextrose (Glutose 15) 0 gm PO ONCE PRN; Protocol PRN Reason: Hypoglycemia Protocol Epoetin Etienne (Procrit) 8,000 unit IV TTS [facility] Last Admin: 05/24/18 13:46 Dose: 8,000 unit Glucagon (Glucagen Diagnostic Kit) 0 mg IM STAT PRN; Protocol PRN Reason: Hypoglycemia Protocol Heparin Sodium (Porcine) (Heparin) 2,000 units IVP TTS [facility] Last Admin: 05/24/18 13:44 Dose: 2,000 units Cefepime HCl 1 gm/ Dextrose 50 mls @ 100 mls/hr IVPB Q24H [facility]; Protocol Last Admin: 05/25/18 17:11 Dose: 100 mls/hr Insulin Human Regular (Novolin R) 0 unit SC ACHS [facility]; Protocol Last Admin: 05/26/18 07:20 Dose: Not Given Losartan Potassium (Cozaar) 100 mg PO QPM [facility] Last Admin: 05/25/18 17:10 Dose: 100 mg Metronidazole (Flagyl) 500 mg PO Q8 [facility]; Protocol Last Admin: 05/26/18 05:12 Dose: 500 mg Sevelamer Carbonate (Renvela) 800 mg PO TIDCC [facility] Last Admin: 05/26/18 08:31 Dose: Not Given Sodium Hypochlorite (Dakins Solution 0.125%) 1 appl TOP Q12 [facility] Last Admin: 05/25/18 21:33 Dose: 1 appl Vitamin B Complex/Vit C/Folic Acid (Nephro-Naren) 1 tab PO 0800 [facility] Last Admin: 05/26/18 08:31 Dose: Not Given - Labs Labs: 05/26/18 06:57 05/26/18 06:57 PT 13.2 SECONDS (9.7-12.2) H 05/20/18 11:24 INR 1.2 05/20/18 11:24 APTT 34 SECONDS (21-34) 05/13/18 07:46 Assessment and Plan - Assessment and Plan (Free Text) Assessment: Appears: No Acute Distress - Head Exam Head Exam: NORMAL INSPECTION - Eye Exam Eye Exam: EOMI, Normal appearance - ENT Exam ENT Exam: Mucous Membranes Moist - Respiratory Exam Respiratory Exam: Clear to Ausculation Bilateral, NORMAL BREATHING PATTERN. absent: Rhonchi, Wheezes, Respiratory Distress - Cardiovascular Exam Cardiovascular Exam: REGULAR RHYTHM, +S1, +S2 - GI/Abdominal Exam GI & Abdominal Exam: Soft, Normal Bowel Sounds. absent: Distended, Firm, Guarding, Tenderness - Extremities Exam Extremities Exam: absent: Pedal Edema, Tenderness Additional comments: RLE- dressing clean, dry, intact; diminished pulses - Neurological Exam Neurological Exam: Alert, Awake, Oriented x3 - Psychiatric Exam Psychiatric exam: Normal Affect, Normal Mood - Skin Skin Exam: Dry, Normal Color, Warm Assessment and Plan - Assessment and Plan (Free Text) Plan: Gangrene of toe - Podiatry consult- Dr. Dior. recs appreciated. * Podiatric surgical intervention not recommended at this time * Wound cleansed and dressed with Dakin's solution wet to dry, Q12 - Vascular sx consult- Dr. Romero. recs appreciated. * s/p aortofemoral angiogram w/ selective catherization of right femoral artery on 05/16. No intervention was done. Pt found to have severe tibial disease. Open to trifurcation. * Patient may need pop-DP bypass pending vein mapping results - Cardiology consulted for cardiac clearance- Dr. Ledesma; help appreciated * cath shows left main patent, LAD with 50 percent stenosis, left circumflex om 1 100 percent, occluded distal left circumflex 60 percent, ef of 30 percent, pt is moderate cardiac risk to proceed - ID consult- Dr. Nunez. recs appreciated. - Foot X-ray: soft tissue swelling noted, MRI recommended - LE US: severely decreased perfusion noted to the RLE; arterial wall calcifications noted to the left - Blood cx x2: negative to date - Wound cx: + proteus mirabilis citrobacter freudii - Flagyl 250mg IV Q8 h Patient to OR 05/26; will f/u post bypass surgery as well PVD - Vascular surgery consult- Dr. Romero. recs appreciated. - LE US: severely decreased perfusion noted to the RLE; arterial wall calcificat ions noted to the left - s/p aortofemoral angiogram w/ selective catherization of right femoral artery on 05/16. No intervention was done. Pt found to have severe tibial disease. Open to trifurcation. ESRD on Dialysis - Nephrology consult- Dr. Caro; help appreciated - Continue Nephrovite, Sevelamer - Losartan 100mg QPM - Continue dialysis TTS - had fistulogram with balloon dilation on Thursday 05/[address] Romero; fistula functioning properly now Diabetes Mellitus - HGB a1c 6.7 - ISS - Hypoglycemia protocol - Accuchecks CAD - Continue Coreg 3.125mg PO BID - Cardio consult- Dr. Ledesma. recs appreciated. CHF;chronic not in acute exacerbation - Cardio consult- Dr. Ledesma; recs appreciated. - Continue Coreg 3.125mg PO BID Anemia - Likely secondary to CKD - Procrit 8000 IV TTS - Transfusions as needed Hypertension - Continue Losartan 100mg QPM Prophylaxis - Heart healthy diet - PT/OT Dispo: As per Surgical Team; patient otherwise medically optimized
[2018-05-26] MEDS ORDERED: Neostigmine Methylsulfate 3mg/3ml Syringe IV ONE (12:59)
[2018-05-26] MEDS ORDERED: HYDROmorphone 0.5 mg/0.5 ml ISec IVP PRN ×2 (14:11→14:27)
--- NOTE | 2018-05-26 14:25 | PCM.SURG1 ---
Surgeon's Initial Post Op Note - Surgeon's Notes Surgeon: Dr. Romero Automobile Mechanic Assistant: Marietta Castro, PGY2; Ladi OMS3 Type of Anesthesia: General Endo Anesthesia Administered By: Dr. Pollack Pre-Operative Diagnosis: PAD, chronic right great toe necrosis Operative Findings: large patent right saphenous vein, patent but calcified right DP, dopplerable and palpable flow through bypass at end of case Post-Operative Diagnosis: same Operation Performed: right popliteal to dorsalis pedis artery bypass with reverse right saphenous vein graft Specimen/Specimens Removed: none Estimated Blood Loss: EBL {In ML}: 300 Blood Products Given: N/A Drains Used: No Drains Post-Op Condition: Fair Date of Surgery/Procedure: 05/26/18 Time of Surgery/Procedure: 08:00
[2018-05-26] MEDS ORDERED: Oxycodone/Acetaminophen 5/325 mg Tab PO PRN (14:27)
--- NOTE | 2018-05-26 14:39 | RAD ---
Date of service: 05/26/2018 PROCEDURE: Intraoperative Fluoroscopy. HISTORY: PERIPHERAL VASCULAR DISEASE RIGHT LEG FINDINGS: Fluoroscopic assistance was provided for intraoperative vascular procedure. Please refer to the operative report from [facility]. Total fluoroscopic time (continuous mode) utilized during the procedure 34.2 seconds. Dose report: DLP 0.10816 (mGy/m2)
--- NOTE | 2018-05-26 16:11 | CP.PCM.PN ---
Subjective - Date & Time of Evaluation Date of Evaluation: 05/26/18 Time of Evaluation: 16:09 - Subjective Subjective: Nephrology Consultation Note: Assessment: Stable Rt foot great toe necrosis/gangrene with PVD s/p popliteal artery bypass s/p angioplasty for AVF stenosis 05/23/18 Diabetic chronic Kidney Disease (E11.22) Hypertensive Chronic Kidney Disease (I12.0) End stage renal disease (N18.6) dependence on hemodialysis (Z99.2) (TTS) via AVF Anemia (D64.9), Hyperphosphatemia (E83.39), Secondary Hyperparathyroidism (E21.1), HTN (I12.0) Obesity, sys CHF with moderate to severe TR Plan: Will plan for dialysis as per TTS. Continue with Nephrovite 1 tab/day. pt had severe allergic reaction to polysulphone dialyzers (cardiac arrest) in past, hence uses only [place] Exeltra. PRBC as needed for anemia. on [place] with dialysis as last Hb 9.7 Continue with phos binders, last phos level: 3.8 BP control with meds as ordered. Patient on RAAS kam as losartan Glycemic control, Dialysis consistent diet Further work up/management as per primary team Dose meds/antibiotics (if needed) for ESRD status. Avoid fleets enema/magnesium based laxatives. pt planned for lower extremity bypass vascular surgery Thanks for allowing me to participate in care of your patient. Will follow patient with you. Please call if any Qs. had d/w team Dr Juan Torres Office: [phone] Chief Complaint;RT toe wound HPI: Pt is a 68 F with hx of ESRD on hemodialysis (TTS) via AVF @ [facility], last dialysis Sat, chronic anemia, hyperphosphatemia, secondary hyperparathyroidism, Diabetes Mellitus, hypertension, CHF, PVD, obesity presented with complaints of Rt foot great toe infection and wound. pt is being seen by vascular as well Renal consult requested for ESRD management. pt denies any other complaints at this time ROS: s/p angioplasty for AVF stenosis 05/23/18 s/p RT lower extremity bypass surgery Physical Examination: General Appearance: Comfortable, in no acute respiratory distress, co-operative . Vitals reviewed and noted as below Head; Atraumatic, normocephalic ENT: no ulcers no thrush. Tongue is midline. Oropharynx: no rash or ulcers. EYES: Pupils are equal, round and reactive to light accommodation. Eye muscles and extraocular movement intact. Sclera is anicteric. Neck; supple no lymphadenopathy, no thyromegaly or bruit Lungs: Normal respiratory rate/effort. Breath sounds bilateral equal and clear Heart: Normal rate. s1s2 normal. No rub or gallop. Extremities: pedal edema +. No varicose veins. Rt foot in dressing Neurological: Patient is sleeping after the procedure. Skin: Warm and dry. Normal turgor. No rash. Palpitation: Normal elasticity for age Abdomen: Abdomen is soft. Bowel sounds +. There is no abdominal tenderness, no guarding/rigidity or organomegaly Psych: normal insight and normal affect/mood MSK: no joint tenderness or swelling. Digits and nails normal, no deformity : kidney or bladder not palpable Access: AVF Labs/imaging reviewed. Past medical history, past surgical history, family history, social history, allergy reviewed and noted as below Family Hx: no hx of CKD. Non contributory Objective - Vital Signs/Intake and Output Vital Signs (last 24 hours): Temp Pulse Resp BP Pulse Ox 97.8 F 61 12 102/44 L 99 05/26/18 15:10 05/26/18 15:10 05/26/18 15:10 05/26/18 15:10 05/26/18 15:10 Intake and Output: 05/26/18 05/26/18 06:59 18:59 Intake Total 500 425 Output Total 220 Balance 500 205 - Medications Medications: Current Medications Apixaban (Eliquis) 2.5 mg PO BID [facility] Aspirin (Ecotrin) 81 mg PO DAILY [facility] Carvedilol (Coreg) 3.125 mg PO BID [facility] Last Admin: 05/26/18 09:34 Dose: Not Given Dextrose (Dextrose 50% Inj) 0 ml IV STAT PRN; Protocol PRN Reason: Hypoglycemia Protocol Dextrose (Glutose 15) 0 gm PO ONCE PRN; Protocol PRN Reason: Hypoglycemia Protocol Epoetin Etienne (Procrit) 8,000 unit IV TTS [facility] Last Admin: 05/24/18 13:46 Dose: 8,000 unit Glucagon (Glucagen Diagnostic Kit) 0 mg IM STAT PRN; Protocol PRN Reason: Hypoglycemia Protocol Heparin Sodium (Porcine) (Heparin) 2,000 units IVP TTS [facility] Last Admin: 05/24/18 13:44 Dose: 2,000 units Hydromorphone HCl (Dilaudid) 0.25 mg IVP Q10M PRN PRN Reason: Pain, moderate (4-7) Stop: 05/26/18 16:11 Hydromorphone HCl (Dilaudid) 0.5 mg IVP Q4H PRN PRN Reason: Pain, severe (8-10) Cefepime HCl 1 gm/ Dextrose 50 mls @ 100 mls/hr IVPB Q24H [facility]; Protocol Last Admin: 05/25/18 17:11 Dose: 100 mls/hr Insulin Human Regular (Novolin R) 0 unit SC ACHS [facility]; Protocol Last Admin: 05/26/18 15:53 Dose: Not Given Losartan Potassium (Cozaar) 100 mg PO QPM [facility] Last Admin: 05/25/18 17:10 Dose: 100 mg Metoclopramide HCl (Reglan) 10 mg IVP ONCE PRN PRN Reason: Nausea/Vomiting Stop: 05/26/18 16:11 Metronidazole (Flagyl) 500 mg PO Q8 [facility]; Protocol Last Admin: 05/26/18 05:12 Dose: 500 mg Oxycodone/Acetaminophen (Percocet 5/325 Mg Tab) 1 tab PO Q4H PRN PRN Reason: Pain, moderate (4-7) Stop: 05/29/18 14:28 Sevelamer Carbonate (Renvela) 800 mg PO TIDCC [facility] Last Admin: 05/26/18 15:54 Dose: Not Given Sodium Hypochlorite (Dakins Solution 0.125%) 1 appl TOP Q12 [facility] Last Admin: 05/26/18 15:53 Dose: Not Given Vitamin B Complex/Vit C/Folic Acid (Nephro-Naren) 1 tab PO 0800 [facility] Last Admin: 05/26/18 08:31 Dose: Not Given - Labs Labs: 05/26/18 06:57 05/26/18 06:57 PT 13.2 SECONDS (9.7-12.2) H 05/20/18 11:24 INR 1.2 05/20/18 11:24 APTT 34 SECONDS (21-34) 05/13/18 07:46
--- NOTE | 2018-05-26 17:13 | CP.PCM.CON ---
<Javier Schwab - Last Filed: 05/26/18 18:59> History of Present Illness - History of Present Illness History of Present Illness: PGY-1 ICU consult note for Dr. Beth Patient is a 68 year old female with PMHx of significant PVD/PAD, DM, ESRD on HD (TThSat), CAD, HTN, CHF, chronic anemia, obesity, and depression presenting with chronic right hallux necrosis. Patient was brought in by her son who states that he noticed her toe discoloration. She denies hurting her foot and denies any trauma to the toe. Patient's son also noted foul smelling yellow discharge from the toe. Patient is POD #0 for a right popliteal to dorsalis pedis artery bypass with reverse right saphenous vein graft. Patient denies fevers, chills, headache, shortness of breath, chest pain, abdominal pain, nausea, vomiting, diarrhea, or urinary symptoms. PMHx: PVD/PAD, DM, ESRD on HD (TThSat), CAD, HTN, CHF, chronic anemia, obesity, and depression PSHx: Right 5th metatarsal amputation and angioplasty in 2013, L arm AVF, permacath insertion, aortofemoral angio, cardiac cath Social Hx: no tobacco, no ETOH, no drugs Allergies: polysulphone dialyzer Past Patient History - Infectious Disease Hx of Infectious Diseases: None - Past Medical History & Family History Past Medical History?: Yes - Past Social History Smoking Status: Never Smoked - CARDIAC Hx Congestive Heart Failure: Yes ("CHRONIC") Hx Hypercholesterolemia: Yes Hx Hypertension: Yes - PULMONARY Hx Respiratory Disorders: No - NEUROLOGICAL Hx Dementia: Yes - HEENT Hx HEENT Problems: No - RENAL Hx Chronic Kidney Disease: Yes - ENDOCRINE/METABOLIC Hx Diabetes Mellitus Type 2: Yes - HEMATOLOGICAL/ONCOLOGICAL Hx Blood Disorders: No - INTEGUMENTARY Hx Dermatological Problems: Yes Other/Comment: HX:pt. w/ diabetic ulcer-left heel, right big toe necrosis - MUSCULOSKELETAL/RHEUMATOLOGICAL Hx Musculoskeletal Disorders: Yes Hx Falls: Yes Hx Osteomyelitis: Yes - GASTROINTESTINAL Hx Gastrointestinal Disorders: No - GENITOURINARY/GYNECOLOGICAL Hx Genitourinary Disorders: Yes Hx Incontinence: Yes - PSYCHIATRIC Hx Substance Use: No - SURGICAL HISTORY Hx Surgeries: Yes Hx Amputation: Yes (bilateral 5th toe) Hx Angiogram: Yes Hx Angioplasty: Yes (02/10/14) Hx Arteriovenous Shunt: Yes (LEFT ARM) - ANESTHESIA Hx Anesthesia: Yes Hx Anesthesia Reactions: No Hx Malignant Hyperthermia: No Meds Home Medications: Home Medication List Medication Instructions Recorded Confirmed Type RX: Carvedilol [Coreg] 6.25 mg PO BID 15 Days #30 tab 05/22/18 Rx RX: Metronidazole 500 mg PO TID #42 tablet 05/22/18 Rx Allergies/Adverse Reactions: Allergies Allergy/AdvReac Type Severity Reaction Status Date / Time polysulphone dialyzer AdvReac ANAPHYLAXIS Uncoded 05/15/18 09:34 - Medications Medications: Current Medications Apixaban (Eliquis) 2.5 mg PO BID [facility] Aspirin (Ecotrin) 81 mg PO DAILY [facility] Carvedilol (Coreg) 3.125 mg PO BID [facility] Last Admin: 05/26/18 09:34 Dose: Not Given Dextrose (Dextrose 50% Inj) 0 ml IV STAT PRN; Protocol PRN Reason: Hypoglycemia Protocol Dextrose (Glutose 15) 0 gm PO ONCE PRN; Protocol PRN Reason: Hypoglycemia Protocol Epoetin Etienne (Procrit) 8,000 unit IV TTS [facility] Last Admin: 05/24/18 13:46 Dose: 8,000 unit Glucagon (Glucagen Diagnostic Kit) 0 mg IM STAT PRN; Protocol PRN Reason: Hypoglycemia Protocol Heparin Sodium (Porcine) (Heparin) 2,000 units IVP TTS [facility] Last Admin: 05/24/18 13:44 Dose: 2,000 units Hydromorphone HCl (Dilaudid) 0.5 mg IVP Q4H PRN PRN Reason: Pain, severe (8-10) Cefepime HCl 1 gm/ Dextrose 50 mls @ 100 mls/hr IVPB Q24H [facility]; Protocol Last Admin: 05/25/18 17:11 Dose: 100 mls/hr Insulin Human Regular (Novolin R) 0 unit SC ACHS [facility]; Protocol Last Admin: 05/26/18 15:53 Dose: Not Given Losartan Potassium (Cozaar) 100 mg PO QPM [facility] Last Admin: 05/25/18 17:10 Dose: 100 mg Metronidazole (Flagyl) 500 mg PO Q8 [facility]; Protocol Last Admin: 05/26/18 05:12 Dose: 500 mg Oxycodone/Acetaminophen (Percocet 5/325 Mg Tab) 1 tab PO Q4H PRN PRN Reason: Pain, moderate (4-7) Stop: 05/29/18 14:28 Sevelamer Carbonate (Renvela) 800 mg PO TIDCC [facility] Last Admin: 05/26/18 15:54 Dose: Not Given Sodium Hypochlorite (Dakins Solution 0.125%) 1 appl TOP Q12 [facility] Last Admin: 05/26/18 15:53 Dose: Not Given Vitamin B Complex/Vit C/Folic Acid (Nephro-Naren) 1 tab PO 0800 [facility] Last Admin: 05/26/18 08:31 Dose: Not Given Results - Vital Signs Recent Vital Signs: Last Vital Signs Temp 97.8 F 05/26/18 15:10 Pulse 61 05/26/18 15:10 Resp 12 05/26/18 15:10 BP 102/44 L 05/26/18 15:10 Pulse Ox 99 05/26/18 15:10 - Labs Result Diagrams: 05/26/18 06:57 05/26/18 06:57 Labs: Laboratory Results - last 24 hr 05/25/18 05/25/18 05/25/18 17:22 17:47 21:24 WBC RBC Hgb Hct MCV MCH MCHC RDW Plt Count MPV Neut % (Auto) Lymph % (Auto) [place] % (Auto) Eos % (Auto) Baso % (Auto) Neut # (Auto) Lymph # (Auto) [place] # (Auto) Eos # (Auto) Baso # (Auto) Sodium 131 L Potassium 4.1 Chloride 94 L Carbon Dioxide 24 Anion Gap 17 BUN 40 H Creatinine 5.8 H Est GFR ( Amer) 9 Est GFR (Non-Af Amer) 7 POC Glucose (mg/dL) 252 H Random Glucose 161 H Calcium 8.2 L Total Bilirubin 0.4 AST 19 ALT 14 Alkaline Phosphatase 120 Total Protein 7.1 Albumin 3.3 L Globulin 3.8 Albumin/Globulin Ratio 0.9 L Blood Type O POSITIVE Antibody Screen Negative 05/26/18 05/26/18 05/26/18 06:46 06:57 06:57 WBC 7.5 RBC 2.93 L Hgb 9.6 L Hct 29.4 L MCV 100.2 H MCH 32.7 H MCHC 32.7 L RDW 14.8 H Plt Count 313 MPV 7.6 Neut % (Auto) 63.0 Lymph % (Auto) 20.0 [place] % (Auto) 12.1 H Eos % (Auto) 3.6 Baso % (Auto) 1.3 Neut # (Auto) 4.7 Lymph # (Auto) 1.5 [place] # (Auto) 0.9 H Eos # (Auto) 0.3 Baso # (Auto) 0.1 Sodium 133 Potassium 4.5 Chloride 93 L Carbon Dioxide 22 Anion Gap 22 H BUN 53 H Creatinine 6.9 H Est GFR ( Amer) 7 Est GFR (Non-Af Amer) 6 POC Glucose (mg/dL) 128 H Random Glucose 140 H Calcium 8.6 Total Bilirubin 0.6 AST 35 ALT < 6 L D Alkaline Phosphatase 99 Total Protein 6.9 Albumin 3.1 L Globulin 3.8 Albumin/Globulin Ratio 0.8 L Blood Type Antibody Screen 05/26/18 05/26/18 09:41 12:54 WBC RBC Hgb Hct MCV MCH MCHC RDW Plt Count MPV Neut % (Auto) Lymph % (Auto) [place] % (Auto) Eos % (Auto) Baso % (Auto) Neut # (Auto) Lymph # (Auto) [place] # (Auto) Eos # (Auto) Baso # (Auto) Sodium Potassium Chloride Carbon Dioxide Anion Gap BUN Creatinine Est GFR ( Amer) Est GFR (Non-Af Amer) POC Glucose (mg/dL) 143 H 152 H Random Glucose Calcium Total Bilirubin AST ALT Alkaline Phosphatase Total Protein Albumin Globulin Albumin/Globulin Ratio Blood Type Antibody Screen Assessment & Plan - Assessment and Plan (Free Text) Assessment: Patient is a 68 year old female presenting with chronic right hallux necrosis and PVD who is admitted to ICU for observation post-op. Patient is POD #0 for a right popliteal to dorsalis pedis artery bypass with reverse right saphenous vein graft. Plan: Neuro: - Patient is AAO x 3 Pulm: - No acute issues Cardiovascular: - Cardiology consulted for cardiac clearance- Dr. Ledesma - cath shows left main patent, LAD with 50 percent stenosis, left circumflex om1 100 percent, occluded distal left circumflex 60 percent, ef of 30 percent, pt is moderate cardiac risk to proceed - Coreg 3.125mg PO BID - Vascular surgery consulted, Dr. Romero - s/p right popliteal to dorsalis pedis artery bypass with reverse right saphenous vein graft on 05/26 - s/p aortofemoral angiogram w/ selective catherization of right femoral artery on 05/16 - Foot X-ray: soft tissue swelling noted, MRI recommended - LE US: severely decreased perfusion noted to the RLE; arterial wall calcifications noted to the left - Eliquis 2.5mg PO BID Heme: - Likely secondary to CKD - Hb/Hct: 9.6/29.4 - stable - Procrit 8000 IV TTS - Transfusions as needed Renal: - Nephrology consulted, Dr. Caro - Nephrovite, Sevelamer - Losartan 100mg QPM - Continue dialysis T,,S - Had fistulogram with balloon dilation on 05/[address] Romero- fistula functioning properly now Endo: - ISS - Hypoglycemia protocol - Accuchecks ACHS GI: - No acute issues ID: - ID consulted, Dr. Nunez - Wound cx: proteus mirabilis citrobacter freudii - Cefepime 1g IV Q24H (Started on 05/22) - Flagyl 500mg IV Q8H (Started on 05/21) - Blood cx x2: negative to date Prophylaxis: - Eliquis 2.5mg PO BID - Heparin 2000 units IVP TTS - Code status: Full code Case discussed with Dr. Kirit Schwab, PGY-1 <Emily Beth - Last Filed: 05/27/18 12:10> Meds - Medications Medications: Current Medications Apixaban (Eliquis) 2.5 mg PO BID [facility] Last Admin: 05/26/18 17:42 Dose: 2.5 mg Aspirin (Ecotrin) 81 mg PO DAILY [facility] Carvedilol (Coreg) 3.125 mg PO BID [facility] Last Admin: 05/26/18 17:42 Dose: 3.125 mg Dextrose (Dextrose 50% Inj) 0 ml IV STAT PRN; Protocol PRN Reason: Hypoglycemia Protocol Dextrose (Glutose 15) 0 gm PO ONCE PRN; Protocol PRN Reason: Hypoglycemia Protocol Epoetin Etienne (Procrit) 8,000 unit IV TTS [facility] Last Admin: 05/27/18 10:22 Dose: 8,000 unit Glucagon (Glucagen Diagnostic Kit) 0 mg IM STAT PRN; Protocol PRN Reason: Hypoglycemia Protocol Heparin Sodium (Porcine) (Heparin) 2,000 units IVP TTS [facility] Last Admin: 05/27/18 10:20 Dose: 2,000 units Hydromorphone HCl (Dilaudid) 0.5 mg IVP Q4H PRN PRN Reason: Pain, severe (8-10) Cefepime HCl 1 gm/ Dextrose 50 mls @ 100 mls/hr IVPB Q24H [facility]; Protocol Last Admin: 05/26/18 17:54 Dose: 100 mls/hr Insulin Human Regular (Novolin R) 0 unit SC ACHS [facility]; Protocol Last Admin: 05/27/18 07:46 Dose: 1 units Losartan Potassium (Cozaar) 100 mg PO QPM [facility] Last Admin: 05/26/18 17:42 Dose: 100 mg Oxycodone/Acetaminophen (Percocet 5/325 Mg Tab) 1 tab PO Q4H PRN PRN Reason: Pain, moderate (4-7) Stop: 05/29/18 14:28 Sevelamer Carbonate (Renvela) 800 mg PO TIDCC [facility] Last Admin: 05/27/18 07:55 Dose: 800 mg Sodium Hypochlorite (Dakins Solution 0.125%) 1 appl TOP Q12 [facility] Last Admin: 05/26/18 22:04 Dose: 1 appl Vitamin B Complex/Vit C/Folic Acid (Nephro-Naren) 1 tab PO 0800 [facility] Last Admin: 05/27/18 07:52 Dose: 1 tab Results - Vital Signs Recent Vital Signs: Last Vital Signs Temp 99.4 F 05/27/18 09:45 Pulse 85 05/27/18 09:45 Resp 17 05/27/18 09:45 BP 137/53 L 05/27/18 11:15 Pulse Ox 100 05/27/18 09:45 - Labs Result Diagrams: 05/27/18 06:32 05/27/18 06:30 Labs: Laboratory Results - last 24 hr 05/26/18 05/26/18 05/26/18 12:54 17:44 21:20 WBC RBC Hgb Hct MCV MCH MCHC RDW Plt Count MPV Neut % (Auto) Lymph % (Auto) [place] % (Auto) Eos % (Auto) Baso % (Auto) Neut # (Auto) Lymph # (Auto) [place] # (Auto) Eos # (Auto) Baso # (Auto) Neutrophils % (Manual) Lymphocytes % (Manual) Monocytes % (Manual) Platelet Estimate Polychromasia Hypochromasia (manual) Macrocytosis (manual) Sodium Potassium Chloride Carbon Dioxide Anion Gap BUN Creatinine Est GFR ( Amer) Est GFR (Non-Af Amer) POC Glucose (mg/dL) 152 H 218 H 247 H Random Glucose Calcium Phosphorus Magnesium Total Bilirubin AST ALT Alkaline Phosphatase Total Protein Albumin Globulin Albumin/Globulin Ratio 05/27/18 05/27/18 05/27/18 06:30 06:32 07:14 WBC 11.9 H D RBC 2.66 L Hgb 8.8 L Hct 26.6 L MCV 100.3 H MCH 33.0 H MCHC 32.9 L RDW 14.9 H Plt Count 303 MPV 7.9 Neut % (Auto) 81.5 H Lymph % (Auto) 8.4 L [place] % (Auto) 8.1 Eos % (Auto) 1.6 Baso % (Auto) 0.4 Neut # (Auto) 9.7 H Lymph # (Auto) 1.0 [place] # (Auto) 1.0 H Eos # (Auto) 0.2 Baso # (Auto) 0.0 Neutrophils % (Manual) 89 H Lymphocytes % (Manual) 5 L Monocytes % (Manual) 6 Platelet Estimate Normal Polychromasia Slight Hypochromasia (manual) Slight Macrocytosis (manual) Slight Sodium 131 L Potassium 5.6 H Chloride 95 L Carbon Dioxide 23 Anion Gap 18 BUN 61 H Creatinine 7.8 H* Est GFR ( Amer) 6 Est GFR (Non-Af Amer) 5 POC Glucose (mg/dL) 197 H Random Glucose 186 H Calcium 8.0 L Phosphorus 5.7 H Magnesium 1.9 Total Bilirubin 0.4 AST 23 ALT 19 Alkaline Phosphatase 103 Total Protein 6.0 L Albumin 2.9 L Globulin 3.2 Albumin/Globulin Ratio 0.9 L 05/27/18 11:43 WBC RBC Hgb Hct MCV MCH MCHC RDW Plt Count MPV Neut % (Auto) Lymph % (Auto) [place] % (Auto) Eos % (Auto) Baso % (Auto) Neut # (Auto) Lymph # (Auto) [place] # (Auto) Eos # (Auto) Baso # (Auto) Neutrophils % (Manual) Lymphocytes % (Manual) Monocytes % (Manual) Platelet Estimate Polychromasia Hypochromasia (manual) Macrocytosis (manual) Sodium Potassium Chloride Carbon Dioxide Anion Gap BUN Creatinine Est GFR ( Amer) Est GFR (Non-Af Amer) POC Glucose (mg/dL) 207 H Random Glucose Calcium Phosphorus Magnesium Total Bilirubin AST ALT Alkaline Phosphatase Total Protein Albumin Globulin Albumin/Globulin Ratio Attending/Attestation - Attestation I have personally seen and examined this patient.: Yes I have fully participated in the care of the patient.: Yes I have reviewed all pertinent clinical information: Yes Notes (Text): 05/27/18 12:09 68-year-old female with severe peripheral vascular disease, admitted postopera tively following popliteal tibial bypass. Stable clinically. Gross ICU management
--- NOTE | 2018-05-26 23:35 | OP ---
PROCEDURE DATE: 05/26/2018 PREOPERATIVE DIAGNOSIS: Gangrene of the right great toe. POSTOPERATIVE DIAGNOSIS: Gangrene of the right great toe. PROCEDURE CARRIED OUT: Right popliteal to dorsalis pedis bypass using reverse saphenous vein with intraoperative arteriogram. SURGEON: Devon Romero Jr., MD. SERVICE CENTER MANAGER: Marietta Castro DO. ANESTHESIOLOGIST: Francis Pollack MD. INDICATION: The patient is an elderly woman on dialysis with gangrene of the foot. OPERATIVE FINDINGS: When the completion of arteriogram was less than perfect, but from what we could see, there was brisk flow into the remnant of the dorsalis pedis and retrograde into the proximal portion of the anterior tibial. At the end of the procedure, we had very good biphasic signals throughout the graft. DESCRIPTION OF PROCEDURE: The patient was given general anesthesia and intravenous antibiotics. Venodyne boots were not applied. An incision was made over the dorsalis pedis and had been localized with ultrasound and Doppler. The vessel was heavily calcified. We then dissected out the vein from the groin down to the knee. After this had been prepared, we then dissected out the popliteal artery below the knee. We then created a subcutaneous tunnel. We then did the distal anastomosis first using loop magnification, heparin anticoagulation, and tourniquet control. After this had been completed, we brought it through the tunnel. We created an anastomosis to the popliteal artery, again with tourniquet control, anticoagulation, and loop magnification. After this had been done, we then controlled for any hemostasis. We approximated the wound edges with Monocryl and nylon sutures and skin clips, and terminated the procedure. Blood loss was 300 mL. Operation carried out was right popliteal to dorsalis pedis bypass with reverse saphenous vein with intraoperative arteriogram. Devon Romero Jr., MD
[2018-05-27 06:43] LABS: BASO % 0.4 % (0.0-2.0); EOS # 0.2 K/uL (0.0-0.7); EOS % 1.6 % (0.0-4.0); HEMOGLOBIN 8.8 g/dL (11.0-16.0); LYMPH % 8.4 % (20.0-40.0); MEAN CELL VOLUME 100.3 fL (81.0-99.0); MEAN CORPUSCULAR HGB CONC 32.9 g/dL (33.0-37.0); MEAN PLATELET VOLUME 7.9 fL (7.2-11.7); MONO % 8.1 % (0.0-10.0); NEUT # 9.7 K/uL (1.8-7.0); NEUT % 81.5 % (50.0-75.0); PLATELET COUNT 303 K/uL (130-400); RBC 2.66 Mil/uL (3.80-5.20); RED CELL DISTRIBUTION WIDTH 14.9 % (11.5-14.5); WHITE BLOOD COUNT 11.9 K/uL (4.8-10.8)
[2018-05-27 06:59] LABS: ALB/GLOB RATIO 0.9 (1.0-2.1); ALBUMIN 2.9 g/dL (3.5-5.0)
--- NOTE | 2018-05-27 07:44 | CP.PCM.PN ---
Objective - Vital Signs/Intake and Output Vital Signs (last 24 hours): Temp Pulse Resp BP Pulse Ox 98.6 F 93 H 15 124/47 L 100 05/27/18 04:00 05/27/18 07:34 05/27/18 07:34 05/27/18 07:34 05/27/18 06:22 Intake and Output: 05/27/18 05/27/18 06:59 18:59 Intake Total 0 Output Total 160 Balance -160 - Medications Medications: Current Medications Apixaban (Eliquis) 2.5 mg PO BID [facility] Last Admin: 05/26/18 17:42 Dose: 2.5 mg Aspirin (Ecotrin) 81 mg PO DAILY [facility] Carvedilol (Coreg) 3.125 mg PO BID [facility] Last Admin: 05/26/18 17:42 Dose: 3.125 mg Dextrose (Dextrose 50% Inj) 0 ml IV STAT PRN; Protocol PRN Reason: Hypoglycemia Protocol Dextrose (Glutose 15) 0 gm PO ONCE PRN; Protocol PRN Reason: Hypoglycemia Protocol Epoetin Etienne (Procrit) 8,000 unit IV TTS [facility] Last Admin: 05/24/18 13:46 Dose: 8,000 unit Glucagon (Glucagen Diagnostic Kit) 0 mg IM STAT PRN; Protocol PRN Reason: Hypoglycemia Protocol Heparin Sodium (Porcine) (Heparin) 2,000 units IVP TTS [facility] Last Admin: 05/24/18 13:44 Dose: 2,000 units Hydromorphone HCl (Dilaudid) 0.5 mg IVP Q4H PRN PRN Reason: Pain, severe (8-10) Cefepime HCl 1 gm/ Dextrose 50 mls @ 100 mls/hr IVPB Q24H [facility]; Protocol Last Admin: 05/26/18 17:54 Dose: 100 mls/hr Insulin Human Regular (Novolin R) 0 unit SC ACHS [facility]; Protocol Last Admin: 05/26/18 22:00 Dose: Not Given Losartan Potassium (Cozaar) 100 mg PO QPM [facility] Last Admin: 05/26/18 17:42 Dose: 100 mg Oxycodone/Acetaminophen (Percocet 5/325 Mg Tab) 1 tab PO Q4H PRN PRN Reason: Pain, moderate (4-7) Stop: 05/29/18 14:28 Sevelamer Carbonate (Renvela) 800 mg PO TIDCC [facility] Last Admin: 05/26/18 17:42 Dose: 800 mg Sodium Hypochlorite (Dakins Solution 0.125%) 1 appl TOP Q12 [facility] Last Admin: 05/26/18 22:04 Dose: 1 appl Vitamin B Complex/Vit C/Folic Acid (Nephro-Naren) 1 tab PO 0800 [facility] Last Admin: 05/26/18 08:31 Dose: Not Given - Labs Labs: 05/27/18 06:32 05/27/18 06:30 PT 13.2 SECONDS (9.7-12.2) H 05/20/18 11:24 INR 1.2 05/20/18 11:24 APTT 34 SECONDS (21-34) 05/13/18 07:46
[2018-05-27] MEDS: (Novolin R) Insulin Human Regular 100 units/ml vial SC SCH ×4 (07:46→22:03)
[2018-05-27] MEDS: Multivitamin Vitamin B Complex (Nephro-Vite) Tab PO SCH (07:52)
--- NOTE | 2018-05-27 08:38 | CP.CCUPN ---
CCU Subjective - Physician Review Subjective (Free Text): 05/27/18 10:43 Patient clinically improved. Medically stable for transfer to med/surg. Critical Care Time Spent (in minutes): 35 CCU Objective - Vital Signs / Intake & Output Vital Signs (Last 4 hours): Vital Signs Pulse Resp BP Pulse Ox 05/27/18 07:34 93 H 15 124/47 L 05/27/18 06:22 87 15 114/32 L 100 05/27/18 06:00 82 18 100 05/27/18 05:22 77 14 122/29 L 100 05/27/18 05:00 79 14 100 Intake and Output (Last 8hrs): Intake & Output 05/26/18 05/27/18 05/27/18 22:59 06:59 14:59 Intake Total 300 0 200 Output Total 20 160 50 Balance 280 -160 150 Intake: Intake, IV Amount 50 0 Right Arm Midline 50 0 Oral 250 200 Output: Urine 20 160 50 Urethral (Mortensen) 130 50 Urine, Voided 30 - Physical Exam Head: Positive for: Normocephalic Pupils: Positive for: PERRL Extroacular Muscles: Positive for: EOMI Conjunctiva: Positive for: Normal Mouth: Positive for: Moist Mucous Membranes Neck: Positive for: Normal Range of Motion Respiratory/Chest: Positive for: Clear to Auscultation, Good Air Exchange. Negative for: Respiratory Distress, Accessory Muscle Use, Wheezes, Rales, Rhonchi Cardiovascular: Positive for: Regular Rate and Rhythm, Normal S1, S2 Abdomen: Positive for: Normal Bowel Sounds. Negative for: Tenderness, Distention, Peritoneal Signs, Rebound, Guarding Upper Extremity: Positive for: Normal Inspection, Normal ROM, NORMAL PULSES, Neurovascularly Intact, Capillary Refill < 2s. Negative for: Cyanosis, Edema, Tenderness Lower Extremity: Positive for: NORMAL PULSES, Neurovascularly Intact, Other (RLE- dressing clean, dry, intact) Psychiatric: Positive for: Alert, Oriented x 3 - Medications Active Medications: Active Medications Generic Name Dose Route Start Last Admin Trade Name Freq PRN Reason Stop Dose Admin Apixaban 2.5 mg 05/26/18 18:00 05/26/18 17:42 Eliquis PO 2.5 mg BID DONALD Administration Aspirin 81 mg 05/27/18 10:00 Ecotrin PO DAILY DONALD Carvedilol 3.125 mg 05/12/18 18:00 11/19/18 17:42 Coreg PO 3.125 mg BID DONALD Administration Dextrose 0 ml 05/12/18 11:55 Dextrose 50% Inj IV STAT PRN Hypoglycemia Protocol Protocol Dextrose 0 gm 05/12/18 11:56 Glutose 15 PO ONCE PRN Hypoglycemia Protocol Protocol Epoetin Etienne 8,000 unit 05/17/18 10:00 05/24/18 13:46 Procrit IV 8,000 unit TTS DONALD Administration Glucagon 0 mg 05/12/18 11:56 Glucagen Diagnostic Kit IM STAT PRN Hypoglycemia Protocol Protocol Heparin Sodium (Porcine) 2,000 units 05/20/18 10:00 05/24/18 13:44 Heparin IVP 2,000 units TTS DONALD Administration Hydromorphone HCl 0.5 mg 05/26/18 14:27 Dilaudid IVP Q4H PRN Pain, severe (8-10) Cefepime HCl 1 gm/ Dextrose 50 mls @ 100 mls/hr 05/22/18 17:00 05/26/18 17:54 IVPB 100 mls/hr Q24H DONALD Administration Protocol Insulin Human Regular 0 unit 05/12/18 11:30 05/27/18 07:46 Novolin R SC 1 units ACHS DONALD Administration Protocol Losartan Potassium 100 mg 05/12/18 18:00 05/26/18 17:42 Cozaar PO 100 mg QPM DONALD Administration Oxycodone/Acetaminophen 1 tab 05/26/18 14:27 Percocet 5/325 Mg Tab PO 05/29/18 14:28 Q4H PRN Pain, moderate (4-7) Sevelamer Carbonate 800 mg 05/12/18 12:00 05/27/18 07:55 Renvela PO 800 mg TIDCC DONALD Administration Sodium Hypochlorite 1 appl 05/14/18 22:00 05/26/18 22:04 Dakins Solution 0.125% TOP 1 appl Q12 DONALD Administration Vitamin B Complex/Vit C/Folic Acid 1 tab 05/13/18 08:00 05/27/18 07:52 Nephro-Naren PO 1 tab 0800 DONALD Administration - Patient Studies Lab Studies: Lab Studies 05/27/18 05/27/18 05/27/18 Range/Units 07:14 06:32 06:30 WBC 11.9 H D (4.8-10.8) K/uL RBC 2.66 L (3.80-5.20) Mil/uL Hgb 8.8 L (11.0-16.0) g/dL Hct 26.6 L (34.0-47.0) % MCV 100.3 H (81.0-99.0) fL MCH 33.0 H (27.0-31.0) pg MCHC 32.9 L (33.0-37.0) g/dL RDW 14.9 H (11.5-14.5) % Plt Count 303 (130-400) K/uL MPV 7.9 (7.2-11.7) fL Neut % (Auto) 81.5 H (50.0-75.0) % Lymph % (Auto) 8.4 L (20.0-40.0) % [place] % (Auto) 8.1 (0.0-10.0) % Eos % (Auto) 1.6 (0.0-4.0) % Baso % (Auto) 0.4 (0.0-2.0) % Neut # (Auto) 9.7 H (1.8-7.0) K/uL Lymph # (Auto) 1.0 (1.0-4.3) K/uL [place] # (Auto) 1.0 H (0.0-0.8) K/uL Eos # (Auto) 0.2 (0.0-0.7) K/uL Baso # (Auto) 0.0 (0.0-0.2) K/uL Sodium 131 L (132-148) mmol/L Potassium 5.6 H (3.6-5.2) mmol/L Chloride 95 L (98-107) mmol/L Carbon Dioxide 23 (22-30) mmol/L Anion Gap 18 (10-20) BUN 61 H (7-17) mg/dL Creatinine 7.8 H* (0.7-1.2) mg/dL Est GFR ( Amer) 6 Est GFR (Non-Af Amer) 5 POC Glucose (mg/dL) 197 H (65-110) mg/dL Random Glucose 186 H (65-105) mg/dL Calcium 8.0 L (8.6-10.4) mg/dl Phosphorus 5.7 H (2.5-4.5) mg/dL Magnesium 1.9 (1.6-2.3) mg/dL Total Bilirubin 0.4 (0.2-1.3) mg/dL AST 23 (14-36) U/L ALT 19 (9-52) U/L Alkaline Phosphatase 103 (38-126) U/L Total Protein 6.0 L (6.3-8.3) g/dL Albumin 2.9 L (3.5-5.0) g/dL Globulin 3.2 (2.2-3.9) gm/dL Albumin/Globulin Ratio 0.9 L (1.0-2.1) 05/26/18 05/26/18 05/26/18 Range/Units 21:20 17:44 12:54 WBC (4.8-10.8) K/uL RBC (3.80-5.20) Mil/uL Hgb (11.0-16.0) g/dL Hct (34.0-47.0) % MCV (81.0-99.0) fL MCH (27.0-31.0) pg MCHC (33.0-37.0) g/dL RDW (11.5-14.5) % Plt Count (130-400) K/uL MPV (7.2-11.7) fL Neut % (Auto) (50.0-75.0) % Lymph % (Auto) (20.0-40.0) % [place] % (Auto) (0.0-10.0) % Eos % (Auto) (0.0-4.0) % Baso % (Auto) (0.0-2.0) % Neut # (Auto) (1.8-7.0) K/uL Lymph # (Auto) (1.0-4.3) K/uL [place] # (Auto) (0.0-0.8) K/uL Eos # (Auto) (0.0-0.7) K/uL Baso # (Auto) (0.0-0.2) K/uL Sodium (132-148) mmol/L Potassium (3.6-5.2) mmol/L Chloride (98-107) mmol/L Carbon Dioxide (22-30) mmol/L Anion Gap (10-20) BUN (7-17) mg/dL Creatinine (0.7-1.2) mg/dL Est GFR ( Amer) Est GFR (Non-Af Amer) POC Glucose (mg/dL) 247 H 218 H 152 H (65-110) mg/dL Random Glucose (65-105) mg/dL Calcium (8.6-10.4) mg/dl Phosphorus (2.5-4.5) mg/dL Magnesium (1.6-2.3) mg/dL Total Bilirubin (0.2-1.3) mg/dL AST (14-36) U/L ALT (9-52) U/L Alkaline Phosphatase (38-126) U/L Total Protein (6.3-8.3) g/dL Albumin (3.5-5.0) g/dL Globulin (2.2-3.9) gm/dL Albumin/Globulin Ratio (1.0-2.1) 05/26/18 Range/Units 09:41 WBC (4.8-10.8) K/uL RBC (3.80-5.20) Mil/uL Hgb (11.0-16.0) g/dL Hct (34.0-47.0) % MCV (81.0-99.0) fL MCH (27.0-31.0) pg MCHC (33.0-37.0) g/dL RDW (11.5-14.5) % Plt Count (130-400) K/uL MPV (7.2-11.7) fL Neut % (Auto) (50.0-75.0) % Lymph % (Auto) (20.0-40.0) % [place] % (Auto) (0.0-10.0) % Eos % (Auto) (0.0-4.0) % Baso % (Auto) (0.0-2.0) % Neut # (Auto) (1.8-7.0) K/uL Lymph # (Auto) (1.0-4.3) K/uL [place] # (Auto) (0.0-0.8) K/uL Eos # (Auto) (0.0-0.7) K/uL Baso # (Auto) (0.0-0.2) K/uL Sodium (132-148) mmol/L Potassium (3.6-5.2) mmol/L Chloride (98-107) mmol/L Carbon Dioxide (22-30) mmol/L Anion Gap (10-20) BUN (7-17) mg/dL Creatinine (0.7-1.2) mg/dL Est GFR ( Amer) Est GFR (Non-Af Amer) POC Glucose (mg/dL) 143 H (65-110) mg/dL Random Glucose (65-105) mg/dL Calcium (8.6-10.4) mg/dl Phosphorus (2.5-4.5) mg/dL Magnesium (1.6-2.3) mg/dL Total Bilirubin (0.2-1.3) mg/dL AST (14-36) U/L ALT (9-52) U/L Alkaline Phosphatase (38-126) U/L Total Protein (6.3-8.3) g/dL Albumin (3.5-5.0) g/dL Globulin (2.2-3.9) gm/dL Albumin/Globulin Ratio (1.0-2.1) Laboratory Results - last 24 hr 05/26/18 05/26/18 05/26/18 09:41 12:54 17:44 WBC RBC Hgb Hct MCV MCH MCHC RDW Plt Count MPV Neut % (Auto) Lymph % (Auto) [place] % (Auto) Eos % (Auto) Baso % (Auto) Neut # (Auto) Lymph # (Auto) [place] # (Auto) Eos # (Auto) Baso # (Auto) Sodium Potassium Chloride Carbon Dioxide Anion Gap BUN Creatinine Est GFR ( Amer) Est GFR (Non-Af Amer) POC Glucose (mg/dL) 143 H 152 H 218 H Random Glucose Calcium Phosphorus Magnesium Total Bilirubin AST ALT Alkaline Phosphatase Total Protein Albumin Globulin Albumin/Globulin Ratio 05/26/18 05/27/18 05/27/18 21:20 06:30 06:32 WBC 11.9 H D RBC 2.66 L Hgb 8.8 L Hct 26.6 L MCV 100.3 H MCH 33.0 H MCHC 32.9 L RDW 14.9 H Plt Count 303 MPV 7.9 Neut % (Auto) 81.5 H Lymph % (Auto) 8.4 L [place] % (Auto) 8.1 Eos % (Auto) 1.6 Baso % (Auto) 0.4 Neut # (Auto) 9.7 H Lymph # (Auto) 1.0 [place] # (Auto) 1.0 H Eos # (Auto) 0.2 Baso # (Auto) 0.0 Sodium 131 L Potassium 5.6 H Chloride 95 L Carbon Dioxide 23 Anion Gap 18 BUN 61 H Creatinine 7.8 H* Est GFR ( Amer) 6 Est GFR (Non-Af Amer) 5 POC Glucose (mg/dL) 247 H Random Glucose 186 H Calcium 8.0 L Phosphorus 5.7 H Magnesium 1.9 Total Bilirubin 0.4 AST 23 ALT 19 Alkaline Phosphatase 103 Total Protein 6.0 L Albumin 2.9 L Globulin 3.2 Albumin/Globulin Ratio 0.9 L 05/27/18 07:14 WBC RBC Hgb Hct MCV MCH MCHC RDW Plt Count MPV Neut % (Auto) Lymph % (Auto) [place] % (Auto) Eos % (Auto) Baso % (Auto) Neut # (Auto) Lymph # (Auto) [place] # (Auto) Eos # (Auto) Baso # (Auto) Sodium Potassium Chloride Carbon Dioxide Anion Gap BUN Creatinine Est GFR ( Amer) Est GFR (Non-Af Amer) POC Glucose (mg/dL) 197 H Random Glucose Calcium Phosphorus Magnesium Total Bilirubin AST ALT Alkaline Phosphatase Total Protein Albumin Globulin Albumin/Globulin Ratio Fingerstick Blood Sugar Results: 197 Critical Care Progress Note - Nutrition Nutrition: Nutrition Category Date Time Status Renal Diet [DIET] Diets 05/26/18 Dinner Active
--- NOTE | 2018-05-27 08:47 | PN ---
DATE: 05/25/2018 SUBJECTIVE: The patient is getting supportive care, for tomorrow. Maite Denis MD
[2018-05-27 08:56] LABS: LYMPHOCYTE 5 % (20-40); MONOCYTE 6 % (0-10); NEUTROPHIL 89 % (50-75); TOTAL CELLS COUNTED 100
[2018-05-27 08:57] LABS: PLATELET ESTIMATE NORMAL (NORMAL)
[2018-05-27 08:58] LABS: HYPOCHROMIC SLIGHT; POLYCHROMIC SLIGHT
[2018-05-27] MEDS: EPOETIN ALFA 4,000 UNIT/ML ML Dialysis IV SCH (10:22)
--- NOTE | 2018-05-27 12:16 | CP.PCM.PN ---
Subjective - Date & Time of Evaluation Date of Evaluation: 05/27/18 Time of Evaluation: 12:15 - Subjective Subjective: Nephrology Consultation Note: Assessment: Stable Rt foot great toe necrosis/gangrene with PVD s/p popliteal artery bypass s/p angioplasty for AVF stenosis 05/23/18 Diabetic chronic Kidney Disease (E11.22) Hypertensive Chronic Kidney Disease (I12.0) End stage renal disease (N18.6) dependence on hemodialysis (Z99.2) (TTS) via AVF Anemia (D64.9), Hyperphosphatemia (E83.39), Secondary Hyperparathyroidism (E21.1), HTN (I12.0) Obesity, sys CHF with moderate to severe TR Plan: Will plan for dialysis as per TTS. Continue with Nephrovite 1 tab/day. pt had severe allergic reaction to polysulphone dialyzers (cardiac arrest) in past, hence uses only [place] Exeltra. PRBC as needed for anemia. on [place] with dialysis as last Hb 9.7 Continue with phos binders, last phos level: 3.8 BP control with meds as ordered. Patient on RAAS kam as losartan. hold BP meds today as BP low side Glycemic control, Dialysis consistent diet Further work up/management as per primary team Dose meds/antibiotics (if needed) for ESRD status. Avoid fleets enema/magnesium based laxatives. pt planned for lower extremity bypass vascular surgery Thanks for allowing me to participate in care of your patient. Will follow patient with you. Please call if any Qs. had d/w team Dr Juan Torres Office: [phone] Chief Complaint;RT toe wound HPI: Pt is a 68 F with hx of ESRD on hemodialysis (TTS) via AVF @ [facility], last dialysis Sat, chronic anemia, hyperphosphatemia, secondary hyperparathyroidism, Diabetes Mellitus, hypertension, CHF, PVD, obesity presented with complaints of Rt foot great toe infection and wound. pt is being seen by vascular as well Renal consult requested for ESRD management. pt denies any other complaints at this time ROS: s/p angioplasty for AVF stenosis 05/23/18 s/p RT lower extremity bypass surgery feels okay, no CP/SOB Physical Examination: seen during HD General Appearance: Comfortable, in no acute respiratory distress, co-operative . Vitals reviewed and noted as below Head; Atraumatic, normocephalic ENT: no ulcers no thrush. Tongue is midline. Oropharynx: no rash or ulcers. EYES: Pupils are equal, round and reactive to light accommodation. Eye muscles and extraocular movement intact. Sclera is anicteric. Neck; supple no lymphadenopathy, no thyromegaly or bruit Lungs: Normal respiratory rate/effort. Breath sounds bilateral equal and clear Heart: Normal rate. s1s2 normal. No rub or gallop. Extremities: pedal edema +. No varicose veins. Rt foot in dressing Neurological: Patient is sleeping after the procedure. Skin: Warm and dry. Normal turgor. No rash. Palpitation: Normal elasticity for age Abdomen: Abdomen is soft. Bowel sounds +. There is no abdominal tenderness, no guarding/rigidity or organomegaly Psych: normal insight and normal affect/mood MSK: no joint tenderness or swelling. Digits and nails normal, no deformity : kidney or bladder not palpable Access: AVF Labs/imaging reviewed. Past medical history, past surgical history, family history, social history, allergy reviewed and noted as below Family Hx: no hx of CKD. Non contributory Objective - Vital Signs/Intake and Output Vital Signs (last 24 hours): Temp Pulse Resp BP Pulse Ox 99.4 F 85 17 137/53 L 100 05/27/18 09:45 05/27/18 09:45 05/27/18 09:45 05/27/18 11:15 05/27/18 09:45 Intake and Output: 05/27/18 05/27/18 06:59 18:59 Intake Total 0 200 Output Total 160 50 Balance -160 150 - Medications Medications: Current Medications Apixaban (Eliquis) 2.5 mg PO BID [facility] Last Admin: 05/26/18 17:42 Dose: 2.5 mg Aspirin (Ecotrin) 81 mg PO DAILY [facility] Carvedilol (Coreg) 3.125 mg PO BID [facility] Last Admin: 05/26/18 17:42 Dose: 3.125 mg Dextrose (Dextrose 50% Inj) 0 ml IV STAT PRN; Protocol PRN Reason: Hypoglycemia Protocol Dextrose (Glutose 15) 0 gm PO ONCE PRN; Protocol PRN Reason: Hypoglycemia Protocol Epoetin Etienne (Procrit) 8,000 unit IV TTS [facility] Last Admin: 05/27/18 10:22 Dose: 8,000 unit Glucagon (Glucagen Diagnostic Kit) 0 mg IM STAT PRN; Protocol PRN Reason: Hypoglycemia Protocol Heparin Sodium (Porcine) (Heparin) 2,000 units IVP TTS [facility] Last Admin: 05/27/18 10:20 Dose: 2,000 units Hydromorphone HCl (Dilaudid) 0.5 mg IVP Q4H PRN PRN Reason: Pain, severe (8-10) Cefepime HCl 1 gm/ Dextrose 50 mls @ 100 mls/hr IVPB Q24H DONALD; Protocol Last Admin: 05/26/18 17:54 Dose: 100 mls/hr Insulin Human Regular (Novolin R) 0 unit SC ACHS [facility]; Protocol Last Admin: 05/27/18 07:46 Dose: 1 units Losartan Potassium (Cozaar) 100 mg PO QPM [facility] Last Admin: 05/26/18 17:42 Dose: 100 mg Oxycodone/Acetaminophen (Percocet 5/325 Mg Tab) 1 tab PO Q4H PRN PRN Reason: Pain, moderate (4-7) Stop: 05/29/18 14:28 Sevelamer Carbonate (Renvela) 800 mg PO TIDCC [facility] Last Admin: 05/27/18 07:55 Dose: 800 mg Sodium Hypochlorite (Dakins Solution 0.125%) 1 appl TOP Q12 [facility] Last Admin: 05/26/18 22:04 Dose: 1 appl Vitamin B Complex/Vit C/Folic Acid (Nephro-Naren) 1 tab PO 0800 [facility] Last Admin: 05/27/18 07:52 Dose: 1 tab - Labs Labs: 05/27/18 06:32 05/27/18 06:30 PT 13.2 SECONDS (9.7-12.2) H 05/20/18 11:24 INR 1.2 05/20/18 11:24 APTT 34 SECONDS (21-34) 05/13/18 07:46
--- NOTE | 2018-05-27 16:13 | CP.PCM.PN ---
Subjective - Date & Time of Evaluation Date of Evaluation: 05/27/18 Time of Evaluation: 16:10 - Subjective Subjective: Podiatry Progress Note for Dr. Dior 68F seen at bedside for gangrenous right hallux. Patient is AAO x 3 and NAD, receiving dialysis at time of visit. Denies any acute overnight events or new pedal complaints. States that bypass procedure went well yesterday. States that pain is well controlled to gangrenous toe. Denies any recent N/V/F/C/CP/SOB/D Objective - Vital Signs/Intake and Output Vital Signs (last 24 hours): Temp Pulse Resp BP Pulse Ox 97.8 F 90 20 137/78 100 05/27/18 14:59 05/27/18 14:59 05/27/18 14:59 05/27/18 14:59 05/27/18 14:59 Intake and Output: 05/27/18 05/27/18 06:59 18:59 Intake Total 0 600 Output Total 160 75 Balance -160 525 - Medications Medications: Current Medications Apixaban (Eliquis) 2.5 mg PO BID [facility] Last Admin: 05/27/18 13:27 Dose: 2.5 mg Aspirin (Ecotrin) 81 mg PO DAILY [facility] Last Admin: 05/27/18 13:32 Dose: 81 mg Carvedilol (Coreg) 3.125 mg PO BID [facility] Last Admin: 05/27/18 13:32 Dose: 3.125 mg Dextrose (Dextrose 50% Inj) 0 ml IV STAT PRN; Protocol PRN Reason: Hypoglycemia Protocol Dextrose (Glutose 15) 0 gm PO ONCE PRN; Protocol PRN Reason: Hypoglycemia Protocol Epoetin Etienne (Procrit) 8,000 unit IV TTS [facility] Last Admin: 05/27/18 10:22 Dose: 8,000 unit Glucagon (Glucagen Diagnostic Kit) 0 mg IM STAT PRN; Protocol PRN Reason: Hypoglycemia Protocol Heparin Sodium (Porcine) (Heparin) 2,000 units IVP TTS [facility] Last Admin: 05/27/18 10:20 Dose: 2,000 units Hydromorphone HCl (Dilaudid) 0.5 mg IVP Q4H PRN PRN Reason: Pain, severe (8-10) Cefepime HCl 1 gm/ Dextrose 50 mls @ 100 mls/hr IVPB Q24H [facility]; Protocol Last Admin: 05/26/18 17:54 Dose: 100 mls/hr Insulin Human Regular (Novolin R) 0 unit SC ACHS DONALD; Protocol Last Admin: 05/27/18 13:26 Dose: 2 units Losartan Potassium (Cozaar) 100 mg PO QPM [facility] Oxycodone/Acetaminophen (Percocet 5/325 Mg Tab) 1 tab PO Q4H PRN PRN Reason: Pain, moderate (4-7) Stop: 05/29/18 14:28 Sevelamer Carbonate (Renvela) 800 mg PO TIDCC [facility] Last Admin: 05/27/18 13:28 Dose: 800 mg Sodium Hypochlorite (Dakins Solution 0.125%) 1 appl TOP Q12 [facility] Last Admin: 05/27/18 13:35 Dose: 1 appl Vitamin B Complex/Vit C/Folic Acid (Nephro-Naren) 1 tab PO 0800 [facility] Last Admin: 05/27/18 07:52 Dose: 1 tab - Labs Labs: 05/27/18 06:32 05/27/18 06:30 PT 13.2 SECONDS (9.7-12.2) H 05/20/18 11:24 INR 1.2 05/20/18 11:24 APTT 34 SECONDS (21-34) 05/13/18 07:46 - Constitutional Appears: Well, Non-toxic, No Acute Distress - Extremities Exam Additional comments: Dressings noted to be C/D/I to right foot Dressings left intact All exposed lesser toes noted to be warm to touch with CFT < 3 seconds - Neurological Exam Neurological Exam: Alert, Awake, Oriented x3 - Psychiatric Exam Psychiatric exam: Normal Affect, Normal Mood Assessment and Plan - Assessment and Plan (Free Text) Assessment: 68F seen at bedside for gangrenous right hallux Plan: Patient seen and evaluated with Dr. Dior WBC 11.9, Afebrile Anticoagulants held Wound cx toe: Proteus Mirabili, Citrobacter Freundii Continue abx per ID Patient tentatively scheduled for right hallux/partial right first ray amputation tomorrow with Dr. Dior if OR can find morning time slot Patient to remain NPO after midnight except meds Dressings left intact Podiatry will continue to follow while patient in house
--- NOTE | 2018-05-27 16:38 | CP.PCM.PN ---
Subjective - Date & Time of Evaluation Date of Evaluation: 05/27/18 Time of Evaluation: 07:00 - Subjective Subjective: Surgery progress note for Dr. Romero Pt seen and examined this AM. No adverse events overnight. patient denies any pain, fevers, chills or any other symptoms Objective - Vital Signs/Intake and Output Vital Signs (last 24 hours): Temp Pulse Resp BP Pulse Ox 97.8 F 90 20 137/78 100 05/27/18 14:59 05/27/18 14:59 05/27/18 14:59 05/27/18 14:59 05/27/18 14:59 Intake and Output: 05/27/18 05/27/18 06:59 18:59 Intake Total 0 600 Output Total 160 75 Balance -160 525 - Medications Medications: Current Medications Apixaban (Eliquis) 2.5 mg PO BID [facility] Last Admin: 05/27/18 13:27 Dose: 2.5 mg Aspirin (Ecotrin) 81 mg PO DAILY [facility] Last Admin: 05/27/18 13:32 Dose: 81 mg Carvedilol (Coreg) 3.125 mg PO BID [facility] Last Admin: 05/27/18 13:32 Dose: 3.125 mg Dextrose (Dextrose 50% Inj) 0 ml IV STAT PRN; Protocol PRN Reason: Hypoglycemia Protocol Dextrose (Glutose 15) 0 gm PO ONCE PRN; Protocol PRN Reason: Hypoglycemia Protocol Epoetin Etienne (Procrit) 8,000 unit IV TTS [facility] Last Admin: 05/27/18 10:22 Dose: 8,000 unit Glucagon (Glucagen Diagnostic Kit) 0 mg IM STAT PRN; Protocol PRN Reason: Hypoglycemia Protocol Heparin Sodium (Porcine) (Heparin) 2,000 units IVP TTS [facility] Last Admin: 05/27/18 10:20 Dose: 2,000 units Hydromorphone HCl (Dilaudid) 0.5 mg IVP Q4H PRN PRN Reason: Pain, severe (8-10) Cefepime HCl 1 gm/ Dextrose 50 mls @ 100 mls/hr IVPB Q24H [facility]; Protocol Last Admin: 05/26/18 17:54 Dose: 100 mls/hr Insulin Human Regular (Novolin R) 0 unit SC ACHS [facility]; Protocol Last Admin: 05/27/18 13:26 Dose: 2 units Losartan Potassium (Cozaar) 100 mg PO QPM [facility] Oxycodone/Acetaminophen (Percocet 5/325 Mg Tab) 1 tab PO Q4H PRN PRN Reason: Pain, moderate (4-7) Stop: 05/29/18 14:28 Sevelamer Carbonate (Renvela) 800 mg PO TIDCC [facility] Last Admin: 05/27/18 13:28 Dose: 800 mg Sodium Hypochlorite (Dakins Solution 0.125%) 1 appl TOP Q12 [facility] Last Admin: 05/27/18 13:35 Dose: 1 appl Vitamin B Complex/Vit C/Folic Acid (Nephro-Naren) 1 tab PO 0800 [facility] Last Admin: 05/27/18 07:52 Dose: 1 tab - Labs Labs: 05/27/18 06:32 05/27/18 06:30 PT 13.2 SECONDS (9.7-12.2) H 05/20/18 11:24 INR 1.2 05/20/18 11:24 APTT 34 SECONDS (21-34) 05/13/18 07:46 - Constitutional Appears: Well, Non-toxic, No Acute Distress - Head Exam Head Exam: ATRAUMATIC, NORMOCEPHALIC - Eye Exam Eye Exam: Normal appearance. absent: Conjunctival injection, Scleral icterus - ENT Exam ENT Exam: Mucous Membranes Moist, Normal Oropharynx - Respiratory Exam Respiratory Exam: NORMAL BREATHING PATTERN. absent: Accessory Muscle Use, Re spiratory Distress - Cardiovascular Exam Cardiovascular Exam: RRR - GI/Abdominal Exam GI & Abdominal Exam: Soft. absent: Distended - Extremities Exam Additional comments: right lower extremity with dressing clean, dry, and minimally saturated with serosanguinous fluid, strong palpable pulse over the graft at the dorsal foot. Right foot warm, normal color, with no neuromotor deficiencies - Neurological Exam Neurological Exam: Alert, Awake, Oriented x3 - Psychiatric Exam Psychiatric exam: Normal Affect, Normal Mood - Skin Skin Exam: Dry, Normal Color, Warm Assessment and Plan - Assessment and Plan (Free Text) Assessment: 68F POD#1 s/p right popliteal arter-dorsalis pedis artery bypass with reverse saphenous vein, POD#4 s/p fistulogram with balloon angioplasty left AVF Plan: Pt may walk today, needs PT/OT PRN pain medication Continue to monitor vascular status of the right leg OR tomorrow for amputation of left toe by podiatry--no conflict from vascular surgery standpoint Recommend resuming aspirin and eliquis as soon as possible after podiatry's procedure Discussed with Dr. Romero, who agrees with above Marietta Castro, PGY2
--- NOTE | 2018-05-27 20:57 | CP.PCM.PN ---
Subjective - Date & Time of Evaluation Date of Evaluation: 05/27/18 Time of Evaluation: 20:57 - Subjective Subjective: Patient without cardiac events No chest pain and dyspnea Physical Examination - Additional Findings Additional findings: - Constitutional Appears: No Acute Distress - Head Exam Head Exam: NORMAL INSPECTION - Eye Exam Eye Exam: EOMI, Normal appearance - ENT Exam ENT Exam: Mucous Membranes Moist - Respiratory Exam Respiratory Exam: Clear to Ausculation Bilateral, NORMAL BREATHING PATTERN. absent: Rhonchi, Wheezes, Respiratory Distress - Cardiovascular Exam Cardiovascular Exam: REGULAR RHYTHM, +S1, +S2 - GI/Abdominal Exam GI & Abdominal Exam: Soft, Normal Bowel Sounds. absent: Distended, Firm, Guarding, Tenderness - Extremities Exam Extremities Exam: absent: Pedal Edema, Tenderness Additional comments: RLE- dressing clean, dry, intact; diminished pulses - Neurological Exam Neurological Exam: Alert, Awake, Oriented x3 - Psychiatric Exam Psychiatric exam: Normal Affect, Normal Mood - Skin Skin Exam: Dry, Normal Color, Warm Assessment and Plan - Assessment and Plan (Free Text) Plan: Gangrene of toe - Podiatry consult- Dr. Dior. recs appreciated. * Podiatric surgical intervention not recommended at this time * Wound cleansed and dressed with Dakin's solution wet to dry, Q12 - Vascular sx consult- Dr. Romero. recs appreciated. * s/p aortofemoral angiogram w/ selective catherization of right femoral artery on 05/16. No intervention was done. Pt found to have severe tibial disease. Open to trifurcation. * Patient may need pop-DP bypass pending vein mapping results - ID consult- Dr. Nunez. recs appreciated. - Foot X-ray: soft tissue swelling noted, MRI recommended - LE US: severely decreased perfusion noted to the RLE; arterial wall calcifications noted to the left - Blood cx x2: negative to date - Wound cx: + proteus mirabilis citrobacter freudii - Flagyl 250mg IV Q8 h *patient is tentatively scheduled for OR on Saturday 05/26 with moderate risk PVD - Vascular surgery consult- Dr. Romero. recs appreciated. - LE US: severely decreased perfusion noted to the RLE; arterial wall calcifications noted to the left - s/p aortofemoral angiogram w/ selective catherization of right femoral artery on 05/16. No intervention was done. Pt found to have severe tibial disease. Open to trifurcation. ESRD on Dialysis - Nephrology consult- Dr. Caro; help appreciated - Continue Nephrovite, Sevelamer - Losartan 100mg QPM - Continue dialysis TTS Diabetes Mellitus - HGB a1c 6.7 - ISS - Hypoglycemia protocol - Accuchecks CAD - Continue Coreg 3.125mg PO BID CHF;chronic not in acute exacerbation - Continue Coreg 3.125mg PO BID Anemia - Likely secondary to CKD - Procrit 8000 IV TTS - Transfusions as needed Hypertension - Continue Losartan 100mg QPM Prophylaxis - Heart healthy diet - PT/OT Patient s/p cardiac cath 1. L Main: Patent 2. LAD: Mid 50% stenosis 3. 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 RCA: Proximal 50% 5. LV: EF 55% Objective - Vital Signs/Intake and Output Vital Signs (last 24 hours): Temp Pulse Resp BP Pulse Ox 97.8 F 90 20 137/78 100 05/27/18 14:59 05/27/18 14:59 05/27/18 14:59 05/27/18 14:59 05/27/18 14:59 Intake and Output: 05/27/18 05/28/18 18:59 06:59 Intake Total 600 Output Total 75 Balance 525 - Medications Medications: Current Medications Apixaban (Eliquis) 2.5 mg PO BID [facility] Last Admin: 05/27/18 13:27 Dose: 2.5 mg Aspirin (Ecotrin) 81 mg PO DAILY [facility] Last Admin: 05/27/18 13:32 Dose: 81 mg Carvedilol (Coreg) 3.125 mg PO BID [facility] Last Admin: 05/27/18 17:31 Dose: 3.125 mg Dextrose (Dextrose 50% Inj) 0 ml IV STAT PRN; Protocol PRN Reason: Hypoglycemia Protocol Dextrose (Glutose 15) 0 gm PO ONCE PRN; Protocol PRN Reason: Hypoglycemia Protocol Epoetin Etienne (Procrit) 8,000 unit IV TTS [facility] Last Admin: 05/27/18 10:22 Dose: 8,000 unit Glucagon (Glucagen Diagnostic Kit) 0 mg IM STAT PRN; Protocol PRN Reason: Hypoglycemia Protocol Heparin Sodium (Porcine) (Heparin) 2,000 units IVP TTS [facility] Last Admin: 05/27/18 10:20 Dose: 2,000 units Hydromorphone HCl (Dilaudid) 0.5 mg IVP Q4H PRN PRN Reason: Pain, severe (8-10) Cefepime HCl 1 gm/ Dextrose 50 mls @ 100 mls/hr IVPB Q24H [facility]; Protocol Last Admin: 05/27/18 19:39 Dose: 100 mls/hr Insulin Human Regular (Novolin R) 0 unit SC ACHS [facility]; Protocol Last Admin: 05/27/18 17:31 Dose: 3 units Losartan Potassium (Cozaar) 100 mg PO QPM [facility] Oxycodone/Acetaminophen (Percocet 5/325 Mg Tab) 1 tab PO Q4H PRN PRN Reason: Pain, moderate (4-7) Stop: 05/29/18 14:28 Sevelamer Carbonate (Renvela) 800 mg PO TIDCC [facility] Last Admin: 05/27/18 17:31 Dose: 800 mg Sodium Hypochlorite (Dakins Solution 0.125%) 1 appl TOP Q12 [facility] Last Admin: 05/27/18 13:35 Dose: 1 appl Vitamin B Complex/Vit C/Folic Acid (Nephro-Naren) 1 tab PO 0800 [facility] Last Admin: 05/27/18 07:52 Dose: 1 tab - Labs Labs: 05/27/18 06:32 05/27/18 06:30 PT 13.2 SECONDS (9.7-12.2) H 05/20/18 11:24 INR 1.2 05/20/18 11:24 APTT 34 SECONDS (21-34) 05/13/18 07:46
[2018-05-28 06:46] LABS: ALB/GLOB RATIO 0.9 (1.0-2.1); ALBUMIN 2.8 g/dL (3.5-5.0); CALCIUM 8.1 mg/dl (8.6-10.4)
[2018-05-28] MEDS: Multivitamin Vitamin B Complex (Nephro-Vite) Tab PO SCH (07:22)
[2018-05-28 07:32] LABS: INR 1.5; PROTHROMBIN TIME 16.2 SECONDS (9.7-12.2)
[2018-05-28] MEDS: (Novolin R) Insulin Human Regular 100 units/ml vial SC SCH ×4 (07:35→21:27)
--- NOTE | 2018-05-28 09:41 | CP.PCM.PN ---
Subjective - Date & Time of Evaluation Date of Evaluation: 05/28/18 Time of Evaluation: 09:00 - Subjective Subjective: Progress Note for Dr. Denis's Service: Patient seen and examined at bedside in the AM. No acute events overnight. Patient has no complaints at this time. Objective - Vital Signs/Intake and Output Vital Signs (last 24 hours): Temp Pulse Resp BP Pulse Ox 98.3 F 80 20 120/63 96 05/28/18 08:32 05/28/18 08:32 05/28/18 08:32 05/28/18 08:32 05/28/18 08:32 Intake and Output: 05/28/18 05/28/18 06:59 18:59 Intake Total 350 Balance 350 - Medications Medications: Current Medications Apixaban (Eliquis) 2.5 mg PO BID [facility] Last Admin: 05/27/18 13:27 Dose: 2.5 mg Aspirin (Ecotrin) 81 mg PO DAILY [facility] Last Admin: 05/27/18 13:32 Dose: 81 mg Carvedilol (Coreg) 3.125 mg PO BID [facility] Last Admin: 05/28/18 09:15 Dose: 3.125 mg Dextrose (Dextrose 50% Inj) 0 ml IV STAT PRN; Protocol PRN Reason: Hypoglycemia Protocol Dextrose (Glutose 15) 0 gm PO ONCE PRN; Protocol PRN Reason: Hypoglycemia Protocol Epoetin Etienne (Procrit) 8,000 unit IV TTS [facility] Last Admin: 05/27/18 10:22 Dose: 8,000 unit Glucagon (Glucagen Diagnostic Kit) 0 mg IM STAT PRN; Protocol PRN Reason: Hypoglycemia Protocol Heparin Sodium (Porcine) (Heparin) 2,000 units IVP TTS [facility] Last Admin: 05/27/18 10:20 Dose: 2,000 units Hydromorphone HCl (Dilaudid) 0.5 mg IVP Q4H PRN PRN Reason: Pain, severe (8-10) Cefepime HCl 1 gm/ Dextrose 50 mls @ 100 mls/hr IVPB Q24H [facility]; Protocol Last Admin: 05/27/18 19:39 Dose: 100 mls/hr Insulin Human Regular (Novolin R) 0 unit SC ACHS [facility]; Protocol Last Admin: 05/28/18 07:35 Dose: Not Given Losartan Potassium (Cozaar) 100 mg PO QPM [facility] Oxycodone/Acetaminophen (Percocet 5/325 Mg Tab) 1 tab PO Q4H PRN PRN Reason: Pain, moderate (4-7) Stop: 05/29/18 14:28 Sevelamer Carbonate (Renvela) 800 mg PO TIDCC [facility] Last Admin: 05/28/18 07:21 Dose: Not Given Sodium Hypochlorite (Dakins Solution 0.125%) 1 appl TOP Q12 [facility] Last Admin: 05/28/18 09:07 Dose: Not Given Vitamin B Complex/Vit C/Folic Acid (Nephro-Naren) 1 tab PO 0800 [facility] Last Admin: 05/28/18 07:22 Dose: Not Given - Labs Labs: 05/27/18 06:32 05/28/18 06:17 PT 16.2 SECONDS (9.7-12.2) H 05/28/18 07:12 INR 1.5 05/28/18 07:12 APTT 34 SECONDS (21-34) 05/28/18 07:12 - Constitutional Appears: No Acute Distress - Head Exam Head Exam: ATRAUMATIC, NORMAL INSPECTION - Eye Exam Eye Exam: EOMI, Normal appearance - ENT Exam ENT Exam: Mucous Membranes Moist - Respiratory Exam Respiratory Exam: Clear to Ausculation Bilateral, NORMAL BREATHING PATTERN - Cardiovascular Exam Cardiovascular Exam: REGULAR RHYTHM - GI/Abdominal Exam GI & Abdominal Exam: Soft, Normal Bowel Sounds. absent: Tenderness - Extremities Exam Additional comments: RLE - dressing - clean/dry/intact - Neurological Exam Neurological Exam: Awake - Skin Skin Exam: Normal Color Assessment and Plan - Assessment and Plan (Free Text) Assessment: Gangrene of toe - Podiatry consult- Dr. Dior. recs appreciated. * Podiatric surgical intervention not recommended at this time * Wound cleansed and dressed with Dakin's solution wet to dry, Q12 * Hallux Amputation 05/28/18 - Vascular sx consult- Dr. Romero. recs appreciated. * s/p 05/23/18 aortofemoral angiogram w/ selective catherization of right femoral artery on 05/16. No intervention was done. Pt found to have severe tibial disease. Open to trifurcation. * Patient may need pop-DP bypass pending vein mapping results - Cardiology consulted for cardiac clearance- Dr. Ledesma; help appreciated * cath shows left main patent, LAD with 50 percent stenosis, left circumflex om 1 100 percent, occluded distal left circumflex 60 percent, ef of 30 percent, pt is moderate cardiac risk to proceed - ID consult- Dr. Nunez. recs appreciated. - Foot X-ray: soft tissue swelling noted, MRI recommended - LE US: severely decreased perfusion noted to the RLE; arterial wall calcifications noted to the left - Blood cx x2: negative to date - Wound cx: + proteus mirabilis citrobacter freudii - Cefepime 1gm q24h PVD - Vascular surgery consult- Dr. Romero. recs appreciated. - s/p 05/26/18: right popliteal to dorsalis pedis artery bypass with reverse right saphenous vein graft - LE US: severely decreased perfusion noted to the RLE; arterial wall calcifications noted to the left - s/p aortofemoral angiogram w/ selective catherization of right femoral artery on 05/16. No intervention was done. Pt found to have severe tibial disease. Open to trifurcation. - Eliquis 2.5mg po bid ESRD on Dialysis - Nephrology consult- Dr. Caro; help appreciated - Continue Nephrovite, Sevelamer - Losartan 100mg QPM - Continue dialysis TTS - had fistulogram with balloon dilation on Thursday 05/[address] Romero; fistula functioning properly now Diabetes Mellitus - HGB a1c 6.7 - ISS - Hypoglycemia protocol - Accuchecks CAD - Continue Coreg 3.125mg PO BID - Cardio consult- Dr. Ledesma. recs appreciated. CHF;chronic not in acute exacerbation - Cardio consult- Dr. Ledesma; recs appreciated. - Continue Coreg 3.125mg PO BID Anemia - Likely secondary to CKD - Procrit 8000 IV TTS - Transfusions as needed Hypertension - Continue Losartan 100mg QPM Prophylaxis - Eliquis 2.5mg po bid - Heart healthy diet - PT/OT Case discussed with Dr. Cira Zamora PGY-2
--- NOTE | 2018-05-28 10:24 | CP.PCM.PN ---
Subjective - Date & Time of Evaluation Date of Evaluation: 05/28/18 Time of Evaluation: 08:00 - Subjective Subjective: Vascular Surgery: Dr. Romero Pt seen and examined. No acute overnight events. Pt states she feels well this AM and denies pain. She is tolerating diet, denies nausea/vomiting, fevers/chills. Objective - Vital Signs/Intake and Output Vital Signs (last 24 hours): Temp Pulse Resp BP Pulse Ox 98.3 F 80 20 120/63 96 05/28/18 08:32 05/28/18 08:32 05/28/18 08:32 05/28/18 08:32 05/28/18 08:32 Intake and Output: 05/28/18 05/28/18 06:59 18:59 Intake Total 350 Balance 350 - Medications Medications: Current Medications Apixaban (Eliquis) 2.5 mg PO BID [facility] Last Admin: 05/27/18 13:27 Dose: 2.5 mg Aspirin (Ecotrin) 81 mg PO DAILY [facility] Last Admin: 05/27/18 13:32 Dose: 81 mg Carvedilol (Coreg) 3.125 mg PO BID [facility] Last Admin: 05/28/18 09:15 Dose: 3.125 mg Dextrose (Dextrose 50% Inj) 0 ml IV STAT PRN; Protocol PRN Reason: Hypoglycemia Protocol Dextrose (Glutose 15) 0 gm PO ONCE PRN; Protocol PRN Reason: Hypoglycemia Protocol Epoetin Etienne (Procrit) 8,000 unit IV TTS [facility] Last Admin: 05/27/18 10:22 Dose: 8,000 unit Glucagon (Glucagen Diagnostic Kit) 0 mg IM STAT PRN; Protocol PRN Reason: Hypoglycemia Protocol Heparin Sodium (Porcine) (Heparin) 2,000 units IVP TTS [facility] Last Admin: 05/27/18 10:20 Dose: 2,000 units Hydromorphone HCl (Dilaudid) 0.5 mg IVP Q4H PRN PRN Reason: Pain, severe (8-10) Cefepime HCl 1 gm/ Dextrose 50 mls @ 100 mls/hr IVPB Q24H [facility]; Protocol Last Admin: 05/27/18 19:39 Dose: 100 mls/hr Insulin Human Regular (Novolin R) 0 unit SC ACHS [facility]; Protocol Last Admin: 05/28/18 07:35 Dose: Not Given Losartan Potassium (Cozaar) 100 mg PO QPM [facility] Oxycodone/Acetaminophen (Percocet 5/325 Mg Tab) 1 tab PO Q4H PRN PRN Reason: Pain, moderate (4-7) Stop: 05/29/18 14:28 Sevelamer Carbonate (Renvela) 800 mg PO TIDCC [facility] Last Admin: 05/28/18 07:21 Dose: Not Given Sodium Hypochlorite (Dakins Solution 0.125%) 1 appl TOP Q12 [facility] Last Admin: 05/28/18 09:07 Dose: Not Given Vitamin B Complex/Vit C/Folic Acid (Nephro-Naren) 1 tab PO 0800 [facility] Last Admin: 05/28/18 07:22 Dose: Not Given - Labs Labs: 05/27/18 06:32 05/28/18 06:17 PT 16.2 SECONDS (9.7-12.2) H 05/28/18 07:12 INR 1.5 05/28/18 07:12 APTT 34 SECONDS (21-34) 05/28/18 07:12 - Constitutional Appears: Well, No Acute Distress - Head Exam Head Exam: ATRAUMATIC, NORMOCEPHALIC - Eye Exam Eye Exam: Normal appearance - ENT Exam ENT Exam: Mucous Membranes Moist - Respiratory Exam Respiratory Exam: NORMAL BREATHING PATTERN - Cardiovascular Exam Cardiovascular Exam: RRR - GI/Abdominal Exam GI & Abdominal Exam: Soft - Extremities Exam Additional comments: RLE warm with palpable pulse in the graft - Neurological Exam Neurological Exam: Alert, Awake, Oriented x3 - Skin Skin Exam: Dry, Warm Assessment and Plan - Assessment and Plan (Free Text) Assessment: 68F s/p RLE Pop-DP bypass; POD#2 Plan: - pt going for hallux amputation with podiatry today - cont ABX - cont vascular checks - d/w Dr. Heather Chinchilla
[2018-05-28 11:14] LABS: HEMOGLOBIN 8.1 g/dL (11.0-16.0); MEAN CELL VOLUME 101.5 fL (81.0-99.0); MEAN CORPUSCULAR HGB CONC 32.5 g/dL (33.0-37.0); RBC 2.45 Mil/uL (3.80-5.20); RED CELL DISTRIBUTION WIDTH 15.4 % (11.5-14.5); WHITE BLOOD COUNT 10.1 K/uL (4.8-10.8)
--- NOTE | 2018-05-28 11:20 | CP.PCM.PN ---
Subjective - Date & Time of Evaluation Date of Evaluation: 05/28/18 Time of Evaluation: 11:17 - Subjective Subjective: patient M bed appears to be comfortable Vital signs stable Objective - Vital Signs/Intake and Output Vital Signs (last 24 hours): Temp Pulse Resp BP Pulse Ox 98.3 F 80 20 120/63 96 05/28/18 08:32 05/28/18 08:32 05/28/18 08:32 05/28/18 08:32 05/28/18 08:32 Intake and Output: 05/28/18 05/28/18 06:59 18:59 Intake Total 350 Balance 350 - Medications Medications: Current Medications Apixaban (Eliquis) 2.5 mg PO BID [facility] Last Admin: 05/27/18 13:27 Dose: 2.5 mg Aspirin (Ecotrin) 81 mg PO DAILY [facility] Last Admin: 05/27/18 13:32 Dose: 81 mg Carvedilol (Coreg) 3.125 mg PO BID [facility] Last Admin: 05/28/18 09:15 Dose: 3.125 mg Dextrose (Dextrose 50% Inj) 0 ml IV STAT PRN; Protocol PRN Reason: Hypoglycemia Protocol Dextrose (Glutose 15) 0 gm PO ONCE PRN; Protocol PRN Reason: Hypoglycemia Protocol Epoetin Etienne (Procrit) 8,000 unit IV TTS [facility] Last Admin: 05/27/18 10:22 Dose: 8,000 unit Glucagon (Glucagen Diagnostic Kit) 0 mg IM STAT PRN; Protocol PRN Reason: Hypoglycemia Protocol Heparin Sodium (Porcine) (Heparin) 2,000 units IVP TTS [facility] Last Admin: 05/27/18 10:20 Dose: 2,000 units Hydromorphone HCl (Dilaudid) 0.5 mg IVP Q4H PRN PRN Reason: Pain, severe (8-10) Cefepime HCl 1 gm/ Dextrose 50 mls @ 100 mls/hr IVPB Q24H [facility]; Protocol Last Admin: 05/27/18 19:39 Dose: 100 mls/hr Insulin Human Regular (Novolin R) 0 unit SC ACHS [facility]; Protocol Last Admin: 05/28/18 07:35 Dose: Not Given Losartan Potassium (Cozaar) 100 mg PO QPM [facility] Oxycodone/Acetaminophen (Percocet 5/325 Mg Tab) 1 tab PO Q4H PRN PRN Reason: Pain, moderate (4-7) Stop: 05/29/18 14:28 Sevelamer Carbonate (Renvela) 800 mg PO TIDCC [facility] Last Admin: 05/28/18 07:21 Dose: Not Given Sodium Hypochlorite (Dakins Solution 0.125%) 1 appl TOP Q12 [facility] Last Admin: 05/28/18 09:07 Dose: Not Given Vitamin B Complex/Vit C/Folic Acid (Nephro-Naren) 1 tab PO 0800 [facility] Last Admin: 05/28/18 07:22 Dose: Not Given - Labs Labs: 05/27/18 06:32 05/28/18 06:17 PT 16.2 SECONDS (9.7-12.2) H 05/28/18 07:12 INR 1.5 05/28/18 07:12 APTT 34 SECONDS (21-34) 05/28/18 07:12 - Constitutional Appears: No Acute Distress - Eye Exam Eye Exam: Conjunctival injection - ENT Exam ENT Exam: Mucous Membranes Moist - Neck Exam Neck Exam: absent: Lymphadenopathy - Cardiovascular Exam Cardiovascular Exam: absent: Gallop, JVD, Rubs - GI/Abdominal Exam GI & Abdominal Exam: Soft, Normal Bowel Sounds - Extremities Exam Extremities Exam: absent: Calf Tenderness - Back Exam Back Exam: absent: CVA tenderness (L), CVA tenderness (R) - Neurological Exam Neurological Exam: Alert - Skin Skin Exam: absent: Cyanosis Assessment and Plan (1) ESRD on hemodialysis Assessment & Plan: Rt foot great toe necrosis/gangrene with PVD s/p popliteal artery bypass s/p angioplasty for AVF stenosis 05/23/18 Diabetic chronic Kidney Disease (E11.22) Hypertensive Chronic Kidney Disease (I12.0) End stage renal disease (N18.6) dependence on hemodialysis (Z99.2) (TTS) via AVF Anemia (D64.9), Hyperphosphatemia (E83.39), Secondary Hyperparathyroidism (E21.1), HTN (I12.0) Obesity, sys CHF with moderate to severe TR Plan: Will plan for dialysis as per TTS. Continue with Nephrovite 1 tab/day. pt had severe allergic reaction to polysulphone dialyzers (cardiac arrest) in past, hence uses only [place] Exeltra. PRBC as needed for anemia. on [place] with dialysis Continue with phos binders, BP control with meds as ordered. Glycemic control, Dialysis consistent diet Further work up/management as per primary team Status: Acute
[2018-05-28] MEDS ORDERED: Lidocaine Hydrochloride 10 ML INJ ONE (15:35)
[2018-05-28] MEDS ORDERED: Bupivacaine 0.25% 20 ML INJ IJ ONE (15:35)
[2018-05-28] MEDS ORDERED: Midazolam 2 MG/2 ML VIAL ONE (15:38)
[2018-05-28] MEDS ORDERED: Propofol 10 mg/ml Inj (20 ML) ONE (15:38)
[2018-05-28] MEDS ORDERED: Oxycodone/Acetaminophen 5/325 mg Tab PO PRN ×2 (16:49)
[2018-05-28] MEDS ORDERED: HYDROmorphone 0.5 mg/0.5 ml ISec IVP PRN (16:54)
--- NOTE | 2018-05-28 16:54 | PCM.SURG1 ---
Surgeon's Initial Post Op Note - Surgeon's Notes Surgeon: dr. Carlton Client Service Manager: Peggy Argueta, PGY1 Adriana Hawley MS4 Type of Anesthesia: IV Sedation, Local Anesthesia Administered By: Dr. Andre Pre-Operative Diagnosis: Right hallux gangrene Operative Findings: see dictation. materials: 1/4th inch vicky drain, chromic gut, 3-0 nylon. injectibles: 17 cc of 1:1 mixture of 1% lidocaine plain and .5% marcaine plain Post-Operative Diagnosis: same Operation Performed: right hallux amputation with removal of all nonviable bone and tissue Specimen/Specimens Removed: right hallux, distal to the MPJ sent to pathology Estimated Blood Loss: EBL {In ML}: 5 Blood Products Given: N/A Drains Used: No Drains Post-Op Condition: Good Date of Surgery/Procedure: 05/28/18 Time of Surgery/Procedure: 16:55
--- NOTE | 2018-05-28 19:25 | CP.PCM.PN ---
Subjective - Date & Time of Evaluation Date of Evaluation: 05/28/18 Time of Evaluation: 07:00 - Subjective Subjective: Patient without cardiac events No chest pain and dyspnea Physical Examination - Additional Findings Additional findings: - Constitutional Appears: No Acute Distress - Head Exam Head Exam: NORMAL INSPECTION - Eye Exam Eye Exam: EOMI, Normal appearance - ENT Exam ENT Exam: Mucous Membranes Moist - Respiratory Exam Respiratory Exam: Clear to Ausculation Bilateral, NORMAL BREATHING PATTERN. absent: Rhonchi, Wheezes, Respiratory Distress - Cardiovascular Exam Cardiovascular Exam: REGULAR RHYTHM, +S1, +S2 - GI/Abdominal Exam GI & Abdominal Exam: Soft, Normal Bowel Sounds. absent: Distended, Firm, Guarding, Tenderness - Extremities Exam Extremities Exam: absent: Pedal Edema, Tenderness Additional comments: RLE- dressing clean, dry, intact; diminished pulses - Neurological Exam Neurological Exam: Alert, Awake, Oriented x3 - Psychiatric Exam Psychiatric exam: Normal Affect, Normal Mood - Skin Skin Exam: Dry, Normal Color, Warm Assessment and Plan - Assessment and Plan (Free Text) Plan: Gangrene of toe - Podiatry consult- Dr. Dior. recs appreciated. * Podiatric surgical intervention not recommended at this time * Wound cleansed and dressed with Dakin's solution wet to dry, Q12 - Vascular sx consult- Dr. Romero. recs appreciated. * s/p aortofemoral angiogram w/ selective catherization of right femoral artery on 05/16. No intervention was done. Pt found to have severe tibial disease. Open to trifurcation. * Patient may need pop-DP bypass pending vein mapping results - ID consult- Dr. Nunez. recs appreciated. - Foot X-ray: soft tissue swelling noted, MRI recommended - LE US: severely decreased perfusion noted to the RLE; arterial wall calcifications noted to the left - Blood cx x2: negative to date - Wound cx: + proteus mirabilis citrobacter freudii - Flagyl 250mg IV Q8 h *patient is tentatively scheduled for OR on Saturday 05/26 with moderate risk PVD - Vascular surgery consult- Dr. Romero. recs appreciated. - LE US: severely decreased perfusion noted to the RLE; arterial wall calcifications noted to the left - s/p aortofemoral angiogram w/ selective catherization of right femoral artery on 05/16. No intervention was done. Pt found to have severe tibial disease. Open to trifurcation. ESRD on Dialysis - Nephrology consult- Dr. Caro; help appreciated - Continue Nephrovite, Sevelamer - Losartan 100mg QPM - Continue dialysis TTS Diabetes Mellitus - HGB a1c 6.7 - ISS - Hypoglycemia protocol - [place] CAD - Continue Coreg 3.125mg PO BID CHF;chronic not in acute exacerbation - Continue Coreg 3.125mg PO BID Anemia - Likely secondary to CKD - Procrit 8000 IV TTS - Transfusions as needed Hypertension - Continue Losartan 100mg QPM Prophylaxis - Heart healthy diet - PT/OT Patient s/p cardiac cath 1. L Main: Patent 2. LAD: Mid 50% stenosis 3. 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 RCA: Proximal 50% 5. LV: EF 55% Objective - Vital Signs/Intake and Output Vital Signs (last 24 hours): Temp Pulse Resp BP Pulse Ox 98.1 F 83 19 144/52 L 98 05/28/18 17:15 05/28/18 17:15 05/28/18 17:15 05/28/18 17:15 05/28/18 17:15 Intake and Output: 05/28/18 05/29/18 18:59 06:59 Intake Total 77 Balance 77 - Medications Medications: Current Medications Acetaminophen (Tylenol 325mg Tab) 650 mg PO Q6 PRN PRN Reason: Pain, Mild (1-3) Apixaban (Eliquis) 2.5 mg PO BID [facility] Last Admin: 05/28/18 18:37 Dose: 2.5 mg Aspirin (Ecotrin) 81 mg PO DAILY [facility] Last Admin: 05/27/18 13:32 Dose: 81 mg Carvedilol (Coreg) 3.125 mg PO BID [facility] Last Admin: 05/28/18 18:37 Dose: 3.125 mg Dextrose (Dextrose 50% Inj) 0 ml IV STAT PRN; Protocol PRN Reason: Hypoglycemia Protocol Dextrose (Glutose 15) 0 gm PO ONCE PRN; Protocol PRN Reason: Hypoglycemia Protocol Epoetin Etienne (Procrit) 8,000 unit IV TTS [facility] Last Admin: 05/27/18 10:22 Dose: 8,000 unit Glucagon (Glucagen Diagnostic Kit) 0 mg IM STAT PRN; Protocol PRN Reason: Hypoglycemia Protocol Heparin Sodium (Porcine) (Heparin) 2,000 units IVP TTS [facility] Last Admin: 05/27/18 10:20 Dose: 2,000 units Hydromorphone HCl (Dilaudid) 0.5 mg IVP Q4H PRN PRN Reason: Pain, severe (8-10) Cefepime HCl 1 gm/ Dextrose 50 mls @ 100 mls/hr IVPB Q24H [facility]; Protocol Last Admin: 05/28/18 18:41 Dose: 100 mls/hr Insulin Human Regular (Novolin R) 0 unit SC ACHS [facility]; Protocol Last Admin: 05/28/18 16:09 Dose: Not Given Losartan Potassium (Cozaar) 100 mg PO QPM [facility] Last Admin: 05/28/18 18:40 Dose: 100 mg Oxycodone/Acetaminophen (Percocet 5/325 Mg Tab) 1 tab PO Q4H PRN PRN Reason: Pain, moderate (4-7) Stop: 05/29/18 14:28 Oxycodone/Acetaminophen (Percocet 5/325 Mg Tab) 1 tab PO Q4H PRN PRN Reason: Pain, moderate (4-7) Stop: 05/31/18 16:50 Oxycodone/Acetaminophen (Percocet 5/325 Mg Tab) 2 tab PO Q4H PRN PRN Reason: Pain, severe (8-10) Stop: 05/31/18 16:50 Sevelamer Carbonate (Renvela) 800 mg PO TIDCC [facility] Last Admin: 05/28/18 18:36 Dose: 800 mg Sodium Hypochlorite (Dakins Solution 0.125%) 1 appl TOP Q12 [facility] Last Admin: 05/28/18 09:07 Dose: Not Given Vitamin B Complex/Vit C/Folic Acid (Nephro-Naren) 1 tab PO 0800 [facility] Last Admin: 05/28/18 07:22 Dose: Not Given - Labs Labs: 05/28/18 10:58 05/28/18 06:17 PT 16.2 SECONDS (9.7-12.2) H 05/28/18 07:12 INR 1.5 05/28/18 07:12 APTT 34 SECONDS (21-34) 05/28/18 07:12
--- NOTE | 2018-05-28 19:35 | CP.PCM.PN ---
Subjective - Date & Time of Evaluation Date of Evaluation: 05/28/18 Time of Evaluation: 07:00 - Subjective Subjective: s/p right hallux amputation with removal of all nonviable bone and tissue Objective - Vital Signs/Intake and Output Vital Signs (last 24 hours): Temp Pulse Resp BP Pulse Ox 98.1 F 83 19 144/52 L 98 05/28/18 17:15 05/28/18 17:15 05/28/18 17:15 05/28/18 17:15 05/28/18 17:15 Intake and Output: 05/28/18 05/29/18 18:59 06:59 Intake Total 77 Balance 77 - Medications Medications: Current Medications Acetaminophen (Tylenol 325mg Tab) 650 mg PO Q6 PRN PRN Reason: Pain, Mild (1-3) Apixaban (Eliquis) 2.5 mg PO BID [facility] Last Admin: 05/28/18 18:37 Dose: 2.5 mg Aspirin (Ecotrin) 81 mg PO DAILY [facility] Last Admin: 05/27/18 13:32 Dose: 81 mg Carvedilol (Coreg) 3.125 mg PO BID [facility] Last Admin: 05/28/18 18:37 Dose: 3.125 mg Dextrose (Dextrose 50% Inj) 0 ml IV STAT PRN; Protocol PRN Reason: Hypoglycemia Protocol Dextrose (Glutose 15) 0 gm PO ONCE PRN; Protocol PRN Reason: Hypoglycemia Protocol Epoetin Etienne (Procrit) 8,000 unit IV TTS [facility] Last Admin: 05/27/18 10:22 Dose: 8,000 unit Glucagon (Glucagen Diagnostic Kit) 0 mg IM STAT PRN; Protocol PRN Reason: Hypoglycemia Protocol Heparin Sodium (Porcine) (Heparin) 2,000 units IVP TTS [facility] Last Admin: 05/27/18 10:20 Dose: 2,000 units Hydromorphone HCl (Dilaudid) 0.5 mg IVP Q4H PRN PRN Reason: Pain, severe (8-10) Cefepime HCl 1 gm/ Dextrose 50 mls @ 100 mls/hr IVPB Q24H [facility]; Protocol Last Admin: 05/28/18 18:41 Dose: 100 mls/hr Insulin Human Regular (Novolin R) 0 unit SC ACHS [facility]; Protocol Last Admin: 05/28/18 16:09 Dose: Not Given Losartan Potassium (Cozaar) 100 mg PO QPM [facility] Last Admin: 05/28/18 18:40 Dose: 100 mg Oxycodone/Acetaminophen (Percocet 5/325 Mg Tab) 1 tab PO Q4H PRN PRN Reason: Pain, moderate (4-7) Stop: 05/29/18 14:28 Oxycodone/Acetaminophen (Percocet 5/325 Mg Tab) 1 tab PO Q4H PRN PRN Reason: Pain, moderate (4-7) Stop: 05/31/18 16:50 Oxycodone/Acetaminophen (Percocet 5/325 Mg Tab) 2 tab PO Q4H PRN PRN Reason: Pain, severe (8-10) Stop: 05/31/18 16:50 Sevelamer Carbonate (Renvela) 800 mg PO TIDCC [facility] Last Admin: 05/28/18 18:36 Dose: 800 mg Sodium Hypochlorite (Dakins Solution 0.125%) 1 appl TOP Q12 [facility] Last Admin: 05/28/18 09:07 Dose: Not Given Vitamin B Complex/Vit C/Folic Acid (Nephro-Naren) 1 tab PO 0800 [facility] Last Admin: 05/28/18 07:22 Dose: Not Given - Labs Labs: 05/28/18 10:58 05/28/18 06:17 PT 16.2 SECONDS (9.7-12.2) H 05/28/18 07:12 INR 1.5 05/28/18 07:12 APTT 34 SECONDS (21-34) 05/28/18 07:12 Assessment and Plan (1) Diabetic foot infection Status: Acute (2) Diabetic infection of right foot Status: Acute
[2018-05-29] MEDS: (Novolin R) Insulin Human Regular 100 units/ml vial SC SCH ×4 (07:47→21:58)
[2018-05-29] MEDS: Multivitamin Vitamin B Complex (Nephro-Vite) Tab PO SCH (07:58)
--- NOTE | 2018-05-29 09:04 | CP.PCM.PN ---
Subjective - Date & Time of Evaluation Date of Evaluation: 05/29/18 Time of Evaluation: 09:00 - Subjective Subjective: Vascular Surgery: Dr. Romero Pt seen and examined. No acute overnight events. States she feels well and pain is well controlled. Pt is tolerating diet and wants to ambulate. Denies fevers/chills. Objective - Vital Signs/Intake and Output Vital Signs (last 24 hours): Temp Pulse Resp BP Pulse Ox 98.7 F 74 20 123/64 96 05/29/18 08:37 05/29/18 08:37 05/29/18 08:37 05/29/18 08:37 05/29/18 08:37 Intake and Output: 05/29/18 05/29/18 06:59 18:59 Intake Total 250 Balance 250 - Medications Medications: Current Medications Acetaminophen (Tylenol 325mg Tab) 650 mg PO Q6 PRN PRN Reason: Pain, Mild (1-3) Apixaban (Eliquis) 2.5 mg PO BID [facility] Last Admin: 05/28/18 18:37 Dose: 2.5 mg Aspirin (Ecotrin) 81 mg PO DAILY [facility] Last Admin: 05/27/18 13:32 Dose: 81 mg Carvedilol (Coreg) 3.125 mg PO BID [facility] Last Admin: 05/28/18 18:37 Dose: 3.125 mg Dextrose (Dextrose 50% Inj) 0 ml IV STAT PRN; Protocol PRN Reason: Hypoglycemia Protocol Dextrose (Glutose 15) 0 gm PO ONCE PRN; Protocol PRN Reason: Hypoglycemia Protocol Epoetin Etienne (Procrit) 8,000 unit IV TTS [facility] Last Admin: 05/27/18 10:22 Dose: 8,000 unit Glucagon (Glucagen Diagnostic Kit) 0 mg IM STAT PRN; Protocol PRN Reason: Hypoglycemia Protocol Heparin Sodium (Porcine) (Heparin) 2,000 units IVP TTS [facility] Last Admin: 05/27/18 10:20 Dose: 2,000 units Hydromorphone HCl (Dilaudid) 0.5 mg IVP Q4H PRN PRN Reason: Pain, severe (8-10) Cefepime HCl 1 gm/ Dextrose 50 mls @ 100 mls/hr IVPB Q24H [facility]; Protocol Last Admin: 05/28/18 18:41 Dose: 100 mls/hr Insulin Human Regular (Novolin R) 0 unit SC ACHS [facility]; Protocol Last Admin: 05/29/18 07:47 Dose: Not Given Losartan Potassium (Cozaar) 100 mg PO QPM [facility] Last Admin: 05/28/18 18:40 Dose: 100 mg Oxycodone/Acetaminophen (Percocet 5/325 Mg Tab) 1 tab PO Q4H PRN PRN Reason: Pain, moderate (4-7) Stop: 05/29/18 14:28 Oxycodone/Acetaminophen (Percocet 5/325 Mg Tab) 1 tab PO Q4H PRN PRN Reason: Pain, moderate (4-7) Stop: 05/31/18 16:50 Oxycodone/Acetaminophen (Percocet 5/325 Mg Tab) 2 tab PO Q4H PRN PRN Reason: Pain, severe (8-10) Stop: 05/31/18 16:50 Sevelamer Carbonate (Renvela) 800 mg PO TIDCC [facility] Last Admin: 05/29/18 07:58 Dose: 800 mg Sodium Hypochlorite (Dakins Solution 0.125%) 1 appl TOP Q12 [facility] Last Admin: 05/28/18 21:16 Dose: Not Given Vitamin B Complex/Vit C/Folic Acid (Nephro-Naren) 1 tab PO 0800 [facility] Last Admin: 05/29/18 07:58 Dose: 1 tab - Labs Labs: 05/28/18 10:58 05/28/18 06:17 PT 16.2 SECONDS (9.7-12.2) H 05/28/18 07:12 INR 1.5 05/28/18 07:12 APTT 34 SECONDS (21-34) 05/28/18 07:12 - Constitutional Appears: Well, No Acute Distress - Head Exam Head Exam: ATRAUMATIC, NORMOCEPHALIC - ENT Exam ENT Exam: Mucous Membranes Moist - Respiratory Exam Respiratory Exam: NORMAL BREATHING PATTERN - Cardiovascular Exam Cardiovascular Exam: RRR - GI/Abdominal Exam GI & Abdominal Exam: Soft - Extremities Exam Additional comments: 2+ pulse in RLE graft, b/l LE warm - Neurological Exam Neurological Exam: Alert, Awake, Oriented x3 - Skin Skin Exam: Dry, Warm Assessment and Plan - Assessment and Plan (Free Text) Assessment: 68F s/p Pop-DP bypass graft; POD#3 Plan: - pt ok to ambulate from vascular surgery standpoint - recommend PT - restart AC today; ASA & Eliquis if ok with Podiatry - d/w Dr. Heather Chinchilla
[2018-05-29] MEDS: EPOETIN ALFA 4,000 UNIT/ML ML Dialysis IV SCH ×2 (10:06→16:36)
--- NOTE | 2018-05-29 10:38 | RAD ---
Date of service: 05/28/2018 PROCEDURE: Right Foot Radiographs. HISTORY: s/p right hallux amputation COMPARISON: Comparison is made to the previous study dated 05/11/2018 FINDINGS: BONES: The patient is status post amputation of the 1st toe. Otherwise no significant interval change in the osseous structures since the prior exam. JOINTS: Arthritic degenerative changes. SOFT TISSUES: Postsurgical changes and surgical drainage noted in the distal right foot. OTHER FINDINGS: None. IMPRESSION: Status post amputation of the 1st toe.
[2018-05-29 10:50] LABS: BASO % 0.4 % (0.0-2.0); EOS # 0.2 K/uL (0.0-0.7); EOS % 2.4 % (0.0-4.0); HEMOGLOBIN 7.3 g/dL (11.0-16.0); LYMPH % 9.5 % (20.0-40.0); MEAN CELL VOLUME 101.4 fL (81.0-99.0); MEAN CORPUSCULAR HEMOGLOBIN 32.6 pg (27.0-31.0); MEAN CORPUSCULAR HGB CONC 32.1 g/dL (33.0-37.0); MEAN PLATELET VOLUME 7.9 fL (7.2-11.7); MONO % 9.7 % (0.0-10.0); PLATELET COUNT 255 K/uL (130-400); RBC 2.24 Mil/uL (3.80-5.20); RED CELL DISTRIBUTION WIDTH 15.4 % (11.5-14.5); WHITE BLOOD COUNT 10.3 K/uL (4.8-10.8)
[2018-05-29 10:55] LABS: ALB/GLOB RATIO 0.8 (1.0-2.1); ALBUMIN 2.7 g/dL (3.5-5.0); CALCIUM 7.8 mg/dl (8.6-10.4)
[2018-05-29 11:35] LABS: ANISOCYTOSIS SLIGHT; EOSINOPHIL 2 % (0-4); HYPOCHROMIC SLIGHT; LYMPHOCYTE 9 % (20-40); MONOCYTE 9 % (0-10); NEUTROPHIL 80 % (50-75); PLATELET ESTIMATE NORMAL (NORMAL); POLYCHROMIC SLIGHT; TOTAL CELLS COUNTED 100
[2018-05-29 11:36] LABS: TOXIC GRANULATION PRESENT
--- NOTE | 2018-05-29 17:07 | CP.PCM.PN ---
Subjective - Date & Time of Evaluation Date of Evaluation: 05/29/18 Time of Evaluation: 17:00 - Subjective Subjective: Podiatry Progress Note for Dr. Dior 68F seen at bedside for 1 day s/p right hallux amputation with primary closure. Patient is AAO x 3 and NAD. Denies any acute overnight events or new pedal complaints. Denies any pain to the toe, denies any acute overnight events. Denies any recent N/V/F/C/CP/SOB/D Objective - Vital Signs/Intake and Output Vital Signs (last 24 hours): Temp Pulse Resp BP Pulse Ox 98.8 F 84 20 121/57 L 97 05/29/18 16:29 05/29/18 16:29 05/29/18 16:29 05/29/18 16:29 05/29/18 16:29 Intake and Output: 05/29/18 05/29/18 06:59 18:59 Intake Total 250 Balance 250 - Medications Medications: Current Medications Acetaminophen (Tylenol 325mg Tab) 650 mg PO Q6 PRN PRN Reason: Pain, Mild (1-3) Apixaban (Eliquis) 2.5 mg PO BID [facility] Last Admin: 05/29/18 09:22 Dose: 2.5 mg Aspirin (Ecotrin) 81 mg PO DAILY [facility] Last Admin: 05/27/18 13:32 Dose: 81 mg Carvedilol (Coreg) 3.125 mg PO BID [facility] Last Admin: 05/29/18 09:22 Dose: 3.125 mg Dextrose (Dextrose 50% Inj) 0 ml IV STAT PRN; Protocol PRN Reason: Hypoglycemia Protocol Dextrose (Glutose 15) 0 gm PO ONCE PRN; Protocol PRN Reason: Hypoglycemia Protocol Epoetin Etienne (Procrit) 8,000 unit IV TTS [facility] Last Admin: 05/29/18 16:36 Dose: Not Given Glucagon (Glucagen Diagnostic Kit) 0 mg IM STAT PRN; Protocol PRN Reason: Hypoglycemia Protocol Heparin Sodium (Porcine) (Heparin) 2,000 units IVP TTS [facility] Last Admin: 05/29/18 10:05 Dose: 2,000 units Hydromorphone HCl (Dilaudid) 0.5 mg IVP Q4H PRN PRN Reason: Pain, severe (8-10) Cefepime HCl 1 gm/ Dextrose 50 mls @ 100 mls/hr IVPB Q24H [facility]; Protocol Last Admin: 05/28/18 18:41 Dose: 100 mls/hr Insulin Human Regular (Novolin R) 0 unit SC ACHS [facility]; Protocol Last Admin: 05/29/18 12:00 Dose: Not Given Losartan Potassium (Cozaar) 100 mg PO QPM [facility] Last Admin: 05/28/18 18:40 Dose: 100 mg Oxycodone/Acetaminophen (Percocet 5/325 Mg Tab) 1 tab PO Q4H PRN PRN Reason: Pain, moderate (4-7) Stop: 05/31/18 16:50 Oxycodone/Acetaminophen (Percocet 5/325 Mg Tab) 2 tab PO Q4H PRN PRN Reason: Pain, severe (8-10) Stop: 05/31/18 16:50 Sevelamer Carbonate (Renvela) 800 mg PO TIDCC [facility] Last Admin: 05/29/18 12:00 Dose: Not Given Sodium Hypochlorite (Dakins Solution 0.125%) 1 appl TOP Q12 [facility] Last Admin: 05/29/18 09:23 Dose: Not Given Vitamin B Complex/Vit C/Folic Acid (Nephro-Naren) 1 tab PO 0800 [facility] Last Admin: 05/29/18 07:58 Dose: 1 tab - Labs Labs: 05/29/18 10:34 05/29/18 10:34 PT 16.2 SECONDS (9.7-12.2) H 05/28/18 07:12 INR 1.5 05/28/18 07:12 APTT 34 SECONDS (21-34) 05/28/18 07:12 - Constitutional Appears: Well, Non-toxic - Head Exam Head Exam: ATRAUMATIC - Extremities Exam Additional comments: vascular: pulses nonpalpable, cFT <3 secs x 3, TG warm to warm from leg to toes, minimal edema noted around the amputation site at the first MPJ, no erythema noted derm: surgical site noted at the distal 1st met, sutures intact, no wound dehiscence, no malodor, no drainage noted upon expression, vicky drain intact at submet 1, no clinical signs of infection. neuro: protective sensation diminished ortho: no pain on palpation to the surgical site. - Neurological Exam Neurological Exam: Alert, Awake, Oriented x3 - Psychiatric Exam Psychiatric exam: Normal Affect Assessment and Plan - Assessment and Plan (Free Text) Assessment: 68F seen at bedside s/p 1 day right hallux amputation Plan: Patient seen and evaluated with Dr. Dior Wound cx toe: Proteus Mirabili, Citrobacter Freundii Continue abx per ID Vicky drain will be removedf tomorrow, Saturday Foot dressed with betadine soaked gauze and DSD Podiatry will continue to follow while patient in house
[2018-05-30] MEDS: (Novolin R) Insulin Human Regular 100 units/ml vial SC SCH ×3 (08:20→17:18)
[2018-05-30 08:24] LABS: BASO # 0.1 K/uL (0.0-0.2); EOS # 0.3 K/uL (0.0-0.7); LYMPH # 1.3 K/uL (1.0-4.3); LYMPH % 15.3 % (20.0-40.0); MEAN CELL VOLUME 101.8 fL (81.0-99.0); MEAN CORPUSCULAR HEMOGLOBIN 32.7 pg (27.0-31.0); MEAN CORPUSCULAR HGB CONC 32.1 g/dL (33.0-37.0); MEAN PLATELET VOLUME 7.7 fL (7.2-11.7); MONO % 12.1 % (0.0-10.0); NEUT # 5.8 K/uL (1.8-7.0); NEUT % 67.6 % (50.0-75.0); NRBC % 0.1 % (0.0-2.0); RBC 2.43 Mil/uL (3.80-5.20); RED CELL DISTRIBUTION WIDTH 15.3 % (11.5-14.5); WHITE BLOOD COUNT 8.5 K/uL (4.8-10.8)
[2018-05-30] MEDS: Multivitamin Vitamin B Complex (Nephro-Vite) Tab PO SCH (08:45)
[2018-05-30 08:47] LABS: ALB/GLOB RATIO 0.9 (1.0-2.1); ALBUMIN 3.1 g/dL (3.5-5.0); CALCIUM 8.3 mg/dl (8.6-10.4)
--- NOTE | 2018-05-30 09:06 | CP.PCM.PN ---
Subjective - Date & Time of Evaluation Date of Evaluation: 05/30/18 Time of Evaluation: 06:30 - Subjective Subjective: Vascular surgery progress note for Dr. Romero Pt seen and examined at bedside this AM. No adverse events overnight. patient denies any pain. Patient states that she walked a little yesterday Objective - Vital Signs/Intake and Output Vital Signs (last 24 hours): Temp Pulse Resp BP Pulse Ox 98.7 F 73 18 126/70 98 05/30/18 01:00 05/30/18 01:00 05/30/18 01:00 05/30/18 01:00 05/30/18 01:00 - Medications Medications: Current Medications Acetaminophen (Tylenol 325mg Tab) 650 mg PO Q6 PRN PRN Reason: Pain, Mild (1-3) Apixaban (Eliquis) 2.5 mg PO BID [facility] Last Admin: 05/29/18 18:26 Dose: 2.5 mg Aspirin (Ecotrin) 81 mg PO DAILY [facility] Last Admin: 05/27/18 13:32 Dose: 81 mg Carvedilol (Coreg) 3.125 mg PO BID [facility] Last Admin: 05/29/18 18:26 Dose: 3.125 mg Dextrose (Dextrose 50% Inj) 0 ml IV STAT PRN; Protocol PRN Reason: Hypoglycemia Protocol Dextrose (Glutose 15) 0 gm PO ONCE PRN; Protocol PRN Reason: Hypoglycemia Protocol Epoetin Etienne (Procrit) 12,000 unit IV TTS [facility] Folic Acid (Folic Acid) 1 mg PO DAILY [facility] Glucagon (Glucagen Diagnostic Kit) 0 mg IM STAT PRN; Protocol PRN Reason: Hypoglycemia Protocol Heparin Sodium (Porcine) (Heparin) 2,000 units IVP TTS [facility] Last Admin: 05/29/18 10:05 Dose: 2,000 units Hydromorphone HCl (Dilaudid) 0.5 mg IVP Q4H PRN PRN Reason: Pain, severe (8-10) Cefepime HCl 1 gm/ Dextrose 50 mls @ 100 mls/hr IVPB Q24H [facility]; Protocol Last Admin: 05/29/18 17:00 Dose: 100 mls/hr Insulin Human Regular (Novolin R) 0 unit SC ACHS [facility]; Protocol Last Admin: 05/30/18 08:20 Dose: 1 units Losartan Potassium (Cozaar) 100 mg PO QPM [facility] Last Admin: 05/29/18 18:26 Dose: 100 mg Oxycodone/Acetaminophen (Percocet 5/325 Mg Tab) 1 tab PO Q4H PRN PRN Reason: Pain, moderate (4-7) Stop: 05/31/18 16:50 Oxycodone/Acetaminophen (Percocet 5/325 Mg Tab) 2 tab PO Q4H PRN PRN Reason: Pain, severe (8-10) Stop: 05/31/18 16:50 Sevelamer Carbonate (Renvela) 800 mg PO TIDCC [facility] Last Admin: 05/30/18 08:45 Dose: 800 mg Thiamine HCl (Vitamin B1 Tab) 100 mg PO BID [facility] Vitamin B Complex/Vit C/Folic Acid (Nephro-Naren) 1 tab PO 0800 [facility] Last Admin: 05/30/18 08:45 Dose: 1 tab - Labs Labs: 05/30/18 08:17 05/30/18 08:17 PT 16.2 SECONDS (9.7-12.2) H 05/28/18 07:12 INR 1.5 05/28/18 07:12 APTT 34 SECONDS (21-34) 05/28/18 07:12 - Constitutional Appears: Well, Non-toxic, No Acute Distress - Head Exam Head Exam: ATRAUMATIC, NORMOCEPHALIC - Eye Exam Eye Exam: Normal appearance. absent: Conjunctival injection, Scleral icterus - ENT Exam ENT Exam: Mucous Membranes Moist, Normal Oropharynx - Respiratory Exam Respiratory Exam: NORMAL BREATHING PATTERN. absent: Accessory Muscle Use, Respiratory Distress - Cardiovascular Exam Cardiovascular Exam: RRR - GI/Abdominal Exam GI & Abdominal Exam: Soft. absent: Distended, Tenderness - Extremities Exam Additional comments: right leg bypass graft with good pulse, foot in bandage from podiatry but is warm, normal color - Neurological Exam Neurological Exam: Alert, Awake, Oriented x3 - Psychiatric Exam Psychiatric exam: Flat Affect, Normal Mood - Skin Skin Exam: Dry, Normal Color, Warm Assessment and Plan - Assessment and Plan (Free Text) Assessment: 68F with PVD POD#4 s/p popliteal DP bypass graft with reverse saphenous vein harvest Plan: Continue current medical management Continue local foot care from podiatry team Patient has no activity limitations and should walk as tolerated--will follow up PT recs today Once patient walks she is clear for D/C from a vascular surgery standpoint to follow up with Dr. Romero in his clinic in 2 weeks after D/C Patient should be on mcfp ASA and eliquis or plavix Please contact surgery team for any further questions or concerns Discussed with Dr. Heather Castro, PGY2
--- NOTE | 2018-05-30 09:26 | CP.PCM.PN ---
Subjective - Date & Time of Evaluation Date of Evaluation: 05/30/18 Time of Evaluation: 09:25 - Subjective Subjective: PGY3 Note for Dr. Denis This patient was seen and examined at bedside this AM; admits to the complaint of urinary retention stating she has not urinated since yesterday but has gone number 2; patient is ESRD and receives hemodialysis; patient does not have urge to pee but is concerned that she needs to pee. Objective - Vital Signs/Intake and Output Vital Signs (last 24 hours): Temp Pulse Resp BP Pulse Ox 98.4 F 74 20 145/72 95 05/30/18 07:00 05/30/18 07:00 05/30/18 07:00 05/30/18 07:00 05/30/18 07:00 - Medications Medications: Current Medications Acetaminophen (Tylenol 325mg Tab) 650 mg PO Q6 PRN PRN Reason: Pain, Mild (1-3) Apixaban (Eliquis) 2.5 mg PO BID [facility] Last Admin: 05/29/18 18:26 Dose: 2.5 mg Aspirin (Ecotrin) 81 mg PO DAILY [facility] Last Admin: 05/27/18 13:32 Dose: 81 mg Carvedilol (Coreg) 3.125 mg PO BID [facility] Last Admin: 05/29/18 18:26 Dose: 3.125 mg Dextrose (Dextrose 50% Inj) 0 ml IV STAT PRN; Protocol PRN Reason: Hypoglycemia Protocol Dextrose (Glutose 15) 0 gm PO ONCE PRN; Protocol PRN Reason: Hypoglycemia Protocol Epoetin Etienne (Procrit) 12,000 unit IV TTS [facility] Folic Acid (Folic Acid) 1 mg PO DAILY [facility] Glucagon (Glucagen Diagnostic Kit) 0 mg IM STAT PRN; Protocol PRN Reason: Hypoglycemia Protocol Heparin Sodium (Porcine) (Heparin) 2,000 units IVP TTS [facility] Last Admin: 05/29/18 10:05 Dose: 2,000 units Hydromorphone HCl (Dilaudid) 0.5 mg IVP Q4H PRN PRN Reason: Pain, severe (8-10) Cefepime HCl 1 gm/ Dextrose 50 mls @ 100 mls/hr IVPB Q24H [facility]; Protocol Last Admin: 05/29/18 17:00 Dose: 100 mls/hr Insulin Human Regular (Novolin R) 0 unit SC ACHS [facility]; Protocol Last Admin: 05/30/18 08:20 Dose: 1 units Losartan Potassium (Cozaar) 100 mg PO QPM [facility] Last Admin: 05/29/18 18:26 Dose: 100 mg Oxycodone/Acetaminophen (Percocet 5/325 Mg Tab) 1 tab PO Q4H PRN PRN Reason: Pain, moderate (4-7) Stop: 05/31/18 16:50 Oxycodone/Acetaminophen (Percocet 5/325 Mg Tab) 2 tab PO Q4H PRN PRN Reason: Pain, severe (8-10) Stop: 05/31/18 16:50 Sevelamer Carbonate (Renvela) 800 mg PO TIDCC [facility] Last Admin: 05/30/18 08:45 Dose: 800 mg Thiamine HCl (Vitamin B1 Tab) 100 mg PO BID [facility] Vitamin B Complex/Vit C/Folic Acid (Nephro-Naren) 1 tab PO 0800 [facility] Last Admin: 05/30/18 08:45 Dose: 1 tab - Labs Labs: 05/30/18 08:17 05/30/18 08:17 PT 16.2 SECONDS (9.7-12.2) H 05/28/18 07:12 INR 1.5 05/28/18 07:12 APTT 34 SECONDS (21-34) 05/28/18 07:12 - Constitutional Appears: Non-toxic - Head Exam Head Exam: ATRAUMATIC - Eye Exam Eye Exam: EOMI - Neck Exam Neck Exam: Full ROM - Cardiovascular Exam Cardiovascular Exam: REGULAR RHYTHM - GI/Abdominal Exam GI & Abdominal Exam: Soft - Back Exam Back Exam: absent: CVA tenderness (L), CVA tenderness (R) - Neurological Exam Neurological Exam: Awake - Psychiatric Exam Psychiatric exam: Normal Affect - Skin Skin Exam: Warm Assessment and Plan - Assessment and Plan (Free Text) Assessment: 68yo F admitted for lower extremity arterial bypass complicated by gangrene of toe Gangrene of toe - Podiatry consult- Dr. Dior. recs appreciated. * Podiatric surgical intervention not recommended at this time * Wound cleansed and dressed with Dakin's solution wet to dry, Q12 * Hallux Amputation 05/28/18 - Vascular sx consult- Dr. Romero. recs appreciated. * s/p 05/23/18 aortofemoral angiogram w/ selective catherization of right femoral artery on 05/16. No intervention was done. Pt found to have severe tibial disease. Open to trifurcation. * Patient may need pop-DP bypass pending vein mapping results - Cardiology consulted for cardiac clearance- Dr. Ledesma; help appreciated * cath shows left main patent, LAD with 50 percent stenosis, left circumflex om 1 100 percent, occluded distal left circumflex 60 percent, ef of 30 percent, pt is moderate cardiac risk to proceed - ID consult- Dr. Nunez. recs appreciated. - Foot X-ray: soft tissue swelling noted, MRI recommended - LE US: severely decreased perfusion noted to the RLE; arterial wall calcifications noted to the left - Blood cx x2: negative to date - Wound cx: + proteus mirabilis citrobacter freudii - Cefepime 1gm q24h PVD - Vascular surgery consult- Dr. Romero. recs appreciated. - s/p 05/26/18: right popliteal to dorsalis pedis artery bypass with reverse right saphenous vein graft - LE US: severely decreased perfusion noted to the RLE; arterial wall calcifications noted to the left - s/p aortofemoral angiogram w/ selective catherization of right femoral artery on 05/16. No intervention was done. Pt found to have severe tibial disease. Open to trifurcation. - Eliquis 2.5mg po bid ESRD on Dialysis - Nephrology consult- Dr. Caro; help appreciated - Continue Nephrovite, Sevelamer - Losartan 100mg QPM - Continue dialysis TTS - had fistulogram with balloon dilation on Thursday 05/[address] Romero; fistula functioning properly now Diabetes Mellitus - HGB a1c 6.7 - ISS - Hypoglycemia protocol - Accuchecks CAD - Continue Coreg 3.125mg PO BID - Cardio consult- Dr. Ledesma. recs appreciated. CHF;chronic not in acute exacerbation - Cardio consult- Dr. Ledesma; recs appreciated. - Continue Coreg 3.125mg PO BID Anemia - Likely secondary to CKD - Procrit 8000 IV TTS - Transfusions as needed Hypertension - Continue Losartan 100mg QPM Prophylaxis - Eliquis 2.5mg po bid - Heart healthy diet - PT/OT Dispo: PT is recommending [facility]; will speak to case and family Case discussed with Dr. Denis
--- NOTE | 2018-05-30 10:16 | CP.PCM.PN ---
<Doris Casey - Last Filed: 05/30/18 10:14> Subjective - Date & Time of Evaluation Date of Evaluation: 05/30/18 Time of Evaluation: 10:00 - Subjective Subjective: Cardiology Follow Up Note Patient was seen and examined at bedside. Patient reports she feels well today. Denied any chest pain, shortness of breath, or palpitations. Objective - Vital Signs/Intake and Output Vital Signs (last 24 hours): Temp Pulse Resp BP Pulse Ox 98.4 F 74 20 145/72 95 05/30/18 07:00 05/30/18 07:00 05/30/18 07:00 05/30/18 07:00 05/30/18 07:00 - Medications Medications: Current Medications Acetaminophen (Tylenol 325mg Tab) 650 mg PO Q6 PRN PRN Reason: Pain, Mild (1-3) Apixaban (Eliquis) 2.5 mg PO BID [facility] Last Admin: 05/30/18 09:43 Dose: 2.5 mg Aspirin (Ecotrin) 81 mg PO DAILY [facility] Last Admin: 05/27/18 13:32 Dose: 81 mg Carvedilol (Coreg) 3.125 mg PO BID [facility] Last Admin: 05/30/18 09:43 Dose: 3.125 mg Dextrose (Dextrose 50% Inj) 0 ml IV STAT PRN; Protocol PRN Reason: Hypoglycemia Protocol Dextrose (Glutose 15) 0 gm PO ONCE PRN; Protocol PRN Reason: Hypoglycemia Protocol Epoetin Etienne (Procrit) 12,000 unit IV TTS [facility] Folic Acid (Folic Acid) 1 mg PO DAILY [facility] Last Admin: 05/30/18 09:43 Dose: 1 mg Glucagon (Glucagen Diagnostic Kit) 0 mg IM STAT PRN; Protocol PRN Reason: Hypoglycemia Protocol Heparin Sodium (Porcine) (Heparin) 2,000 units IVP TTS [facility] Last Admin: 05/29/18 10:05 Dose: 2,000 units Hydromorphone HCl (Dilaudid) 0.5 mg IVP Q4H PRN PRN Reason: Pain, severe (8-10) Cefepime HCl 1 gm/ Dextrose 50 mls @ 100 mls/hr IVPB Q24H [facility]; Protocol Last Admin: 05/29/18 17:00 Dose: 100 mls/hr Insulin Human Regular (Novolin R) 0 unit SC ACHS [facility]; Protocol Last Admin: 05/30/18 08:20 Dose: 1 units Losartan Potassium (Cozaar) 100 mg PO QPM [facility] Last Admin: 05/29/18 18:26 Dose: 100 mg Oxycodone/Acetaminophen (Percocet 5/325 Mg Tab) 1 tab PO Q4H PRN PRN Reason: Pain, moderate (4-7) Stop: 05/31/18 16:50 Oxycodone/Acetaminophen (Percocet 5/325 Mg Tab) 2 tab PO Q4H PRN PRN Reason: Pain, severe (8-10) Stop: 05/31/18 16:50 Sevelamer Carbonate (Renvela) 800 mg PO TIDCC [facility] Last Admin: 05/30/18 08:45 Dose: 800 mg Thiamine HCl (Vitamin B1 Tab) 100 mg PO BID [facility] Last Admin: 05/30/18 09:43 Dose: 100 mg Vitamin B Complex/Vit C/Folic Acid (Nephro-Naren) 1 tab PO 0800 [facility] Last Admin: 05/30/18 08:45 Dose: 1 tab - Labs Labs: 05/30/18 08:17 05/30/18 08:17 PT 16.2 SECONDS (9.7-12.2) H 05/28/18 07:12 INR 1.5 05/28/18 07:12 APTT 34 SECONDS (21-34) 05/28/18 07:12 - Constitutional Appears: No Acute Distress - Head Exam Head Exam: NORMAL INSPECTION, NORMOCEPHALIC - Eye Exam Eye Exam: Normal appearance, PERRL Pupil Exam: NORMAL ACCOMODATION - ENT Exam ENT Exam: Mucous Membranes Moist - Respiratory Exam Respiratory Exam: Clear to Ausculation Bilateral, NORMAL BREATHING PATTERN. absent: Decreased Breath Sounds - Cardiovascular Exam Cardiovascular Exam: +S1, +S2 - GI/Abdominal Exam GI & Abdominal Exam: Soft, Normal Bowel Sounds. absent: Distended, Tenderness - Extremities Exam Extremities Exam: absent: Pedal Edema, Tenderness Additional comments: right LE wrapped in dressing - Neurological Exam Neurological Exam: Alert, Awake, Oriented x3 - Psychiatric Exam Psychiatric exam: Normal Affect, Normal Mood - Skin Skin Exam: Dry, Intact, Normal Color, Warm Assessment and Plan - Assessment and Plan (Free Text) Plan: Moderate CAD Imaging: - Lexiscan: abnormal - S/P Cath: 1. L Main: Patent. 2. LAD: Mid 50% stenosis. 3. L Cx/OM: OM1 100% occluded ([employer]), Distal L Cx 60%. 4. RCA: Proximal 50%. 5. LV: EF 55% Management: - Medical management, may need outpatient PCI. - Continue with ASA, Eliquis, Coreg, Cozaar, and statin therapy. Case discussed with Doris Acosta DO, PGY2 <Arnulfo Ledesma - Last Filed: 05/30/18 20:42> Objective - Vital Signs/Intake and Output Vital Signs (last 24 hours): Temp Pulse Resp BP Pulse Ox 98.5 F 73 20 127/66 93 L 05/30/18 16:33 05/30/18 16:33 05/30/18 16:33 05/30/18 16:33 05/30/18 16:33 Intake and Output: 05/30/18 05/31/18 18:59 06:59 Intake Total 300 Balance 300 - Medications Medications: Current Medications Acetaminophen (Tylenol 325mg Tab) 650 mg PO Q6 PRN PRN Reason: Pain, Mild (1-3) Apixaban (Eliquis) 2.5 mg PO BID [facility] Last Admin: 05/30/18 18:45 Dose: 2.5 mg Aspirin (Ecotrin) 81 mg PO DAILY [facility] Last Admin: 05/27/18 13:32 Dose: 81 mg Carvedilol (Coreg) 3.125 mg PO BID [facility] Last Admin: 05/30/18 18:45 Dose: 3.125 mg Dextrose (Dextrose 50% Inj) 0 ml IV STAT PRN; Protocol PRN Reason: Hypoglycemia Protocol Dextrose (Glutose 15) 0 gm PO ONCE PRN; Protocol PRN Reason: Hypoglycemia Protocol Epoetin Etienne (Procrit) 12,000 unit IV TTS [facility] Folic Acid (Folic Acid) 1 mg PO DAILY [facility] Last Admin: 05/30/18 09:43 Dose: 1 mg Glucagon (Glucagen Diagnostic Kit) 0 mg IM STAT PRN; Protocol PRN Reason: Hypoglycemia Protocol Heparin Sodium (Porcine) (Heparin) 2,000 units IVP TTS [facility] Last Admin: 05/29/18 10:05 Dose: 2,000 units Cefepime HCl 1 gm/ Dextrose 50 mls @ 100 mls/hr IVPB Q24H [facility]; Protocol Last Admin: 05/30/18 16:01 Dose: 100 mls/hr Insulin Human Regular (Novolin R) 0 unit SC ACHS [facility]; Protocol Last Admin: 05/30/18 17:18 Dose: 1 units Losartan Potassium (Cozaar) 100 mg PO QPM [facility] Last Admin: 05/30/18 18:45 Dose: 100 mg Oxycodone/Acetaminophen (Percocet 5/325 Mg Tab) 1 tab PO Q4H PRN PRN Reason: Pain, moderate (4-7) Stop: 05/31/18 16:50 Oxycodone/Acetaminophen (Percocet 5/325 Mg Tab) 2 tab PO Q4H PRN PRN Reason: Pain, severe (8-10) Stop: 05/31/18 16:50 Rosuvastatin Calcium (Crestor) 10 mg PO HS [facility] Sevelamer Carbonate (Renvela) 800 mg PO TIDCC [facility] Last Admin: 05/30/18 16:01 Dose: 800 mg Thiamine HCl (Vitamin B1 Tab) 100 mg PO BID [facility] Last Admin: 05/30/18 18:45 Dose: 100 mg Vitamin B Complex/Vit C/Folic Acid (Nephro-Naren) 1 tab PO 0800 [facility] Last Admin: 05/30/18 08:45 Dose: 1 tab - Labs Labs: 05/30/18 11:18 05/30/18 11:18 PT 16.2 SECONDS (9.7-12.2) H 05/28/18 07:12 INR 1.5 05/28/18 07:12 APTT 34 SECONDS (21-34) 05/28/18 07:12 Assessment and Plan - Assessment and Plan (Free Text) Plan: Patient seen and evaluated personally by me. Plan of care d/w the resident and as documented
--- NOTE | 2018-05-30 10:33 | CP.PCM.PN ---
Subjective - Date & Time of Evaluation Date of Evaluation: 05/30/18 Time of Evaluation: 10:31 - Subjective Subjective: Podiatry Progress Note for Dr. Dior 68F seen at bedside for 2 day s/p right hallux amputation with primary closure. Patient is AAO x 3 and NAD. Denies any acute overnight events or new pedal complaints. Denies any pain to the toe, denies any acute overnight events. Denies any recent N/V/F/C/CP/SOB/D Objective - Vital Signs/Intake and Output Vital Signs (last 24 hours): Temp Pulse Resp BP Pulse Ox 98.4 F 74 20 145/72 95 05/30/18 07:00 05/30/18 07:00 05/30/18 07:00 05/30/18 07:00 05/30/18 07:00 - Medications Medications: Current Medications Acetaminophen (Tylenol 325mg Tab) 650 mg PO Q6 PRN PRN Reason: Pain, Mild (1-3) Apixaban (Eliquis) 2.5 mg PO BID [facility] Last Admin: 05/30/18 09:43 Dose: 2.5 mg Aspirin (Ecotrin) 81 mg PO DAILY [facility] Last Admin: 05/27/18 13:32 Dose: 81 mg Carvedilol (Coreg) 3.125 mg PO BID [facility] Last Admin: 05/30/18 09:43 Dose: 3.125 mg Dextrose (Dextrose 50% Inj) 0 ml IV STAT PRN; Protocol PRN Reason: Hypoglycemia Protocol Dextrose (Glutose 15) 0 gm PO ONCE PRN; Protocol PRN Reason: Hypoglycemia Protocol Epoetin Etienne (Procrit) 12,000 unit IV TTS [facility] Folic Acid (Folic Acid) 1 mg PO DAILY [facility] Last Admin: 05/30/18 09:43 Dose: 1 mg Glucagon (Glucagen Diagnostic Kit) 0 mg IM STAT PRN; Protocol PRN Reason: Hypoglycemia Protocol Heparin Sodium (Porcine) (Heparin) 2,000 units IVP TTS [facility] Last Admin: 05/29/18 10:05 Dose: 2,000 units Hydromorphone HCl (Dilaudid) 0.5 mg IVP Q4H PRN PRN Reason: Pain, severe (8-10) Cefepime HCl 1 gm/ Dextrose 50 mls @ 100 mls/hr IVPB Q24H [facility]; Protocol Last Admin: 05/29/18 17:00 Dose: 100 mls/hr Insulin Human Regular (Novolin R) 0 unit SC ACHS [facility]; Protocol Last Admin: 05/30/18 08:20 Dose: 1 units Losartan Potassium (Cozaar) 100 mg PO QPM [facility] Last Admin: 05/29/18 18:26 Dose: 100 mg Oxycodone/Acetaminophen (Percocet 5/325 Mg Tab) 1 tab PO Q4H PRN PRN Reason: Pain, moderate (4-7) Stop: 05/31/18 16:50 Oxycodone/Acetaminophen (Percocet 5/325 Mg Tab) 2 tab PO Q4H PRN PRN Reason: Pain, severe (8-10) Stop: 05/31/18 16:50 Rosuvastatin Calcium (Crestor) 10 mg PO HS [facility] Sevelamer Carbonate (Renvela) 800 mg PO TIDCC [facility] Last Admin: 05/30/18 08:45 Dose: 800 mg Thiamine HCl (Vitamin B1 Tab) 100 mg PO BID [facility] Last Admin: 05/30/18 09:43 Dose: 100 mg Vitamin B Complex/Vit C/Folic Acid (Nephro-Naren) 1 tab PO 0800 [facility] Last Admin: 05/30/18 08:45 Dose: 1 tab - Labs Labs: 05/30/18 08:17 05/30/18 08:17 PT 16.2 SECONDS (9.7-12.2) H 05/28/18 07:12 INR 1.5 05/28/18 07:12 APTT 34 SECONDS (21-34) 05/28/18 07:12 - Constitutional Appears: Well, Non-toxic - Head Exam Head Exam: ATRAUMATIC - Extremities Exam Additional comments: vascular: pulses nonpalpable, cFT <3 secs x 3, TG warm to warm from leg to toes, minimal edema noted around the amputation site at the first MPJ, no erythema noted derm: surgical site noted at the distal 1st met, sutures intact, no wound dehiscence, no malodor, no drainage noted upon expression, vicky drain intact at submet 1, no clinical signs of infection. neuro: protective sensation diminished ortho: no pain on palpation to the surgical site. - Neurological Exam Neurological Exam: Alert, Normal Gait - Psychiatric Exam Psychiatric exam: Normal Affect - Skin Skin Exam: Normal Color Assessment and Plan - Assessment and Plan (Free Text) Assessment: 68F seen at bedside s/p 2 day right hallux amputation Plan: Patient seen and evaluated with Dr. Dior Wound cx toe: Proteus Mirabili, Citrobacter Freundii Continue abx per ID [place] drain will be removed bone pathology pending Foot dressed with betadine soaked gauze and DSD Patient stable for discharge from podiatry point of view; patient will follow up with Dr Dior in his office within a week of discharge, Keep dressing dry, clean and intact. Podiatry will continue to follow while patient in house
[2018-05-30 11:40] LABS: BASO # 0.1 K/uL (0.0-0.2); BASO % 0.8 % (0.0-2.0); EOS # 0.4 K/uL (0.0-0.7); EOS % 4.8 % (0.0-4.0); HEMOGLOBIN 7.8 g/dL (11.0-16.0); LYMPH % 12.6 % (20.0-40.0); MEAN CELL VOLUME 100.8 fL (81.0-99.0); MEAN CORPUSCULAR HGB CONC 32.8 g/dL (33.0-37.0); MONO # 0.9 K/uL (0.0-0.8); MONO % 10.8 % (0.0-10.0); NEUT # 5.8 K/uL (1.8-7.0); RBC 2.35 Mil/uL (3.80-5.20); RED CELL DISTRIBUTION WIDTH 15.3 % (11.5-14.5); WHITE BLOOD COUNT 8.1 K/uL (4.8-10.8)
[2018-05-30 11:56] LABS: ALB/GLOB RATIO 0.9 (1.0-2.1); ALBUMIN 2.9 g/dL (3.5-5.0); CALCIUM 8.1 mg/dl (8.6-10.4)
--- NOTE | 2018-05-30 13:25 | CP.PCM.PN ---
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 Continue with Nephrovite 1 tab/day. pt had severe allergic reaction to polysulphone dialyzers (cardiac arrest) in past, hence uses only [place] Exeltra. PRBC as needed for anemia. on [place] with dialysis as last Hb 8 Continue with phos binders, last phos level:4.2 BP control with meds as ordered. Patient on RAAS kam as losartan. Glycemic control, Dialysis consistent diet Further work up/management as per primary team Dose meds/antibiotics (if needed) for ESRD status. Avoid fleets enema/magnesium based laxatives. Thanks for allowing me to participate in care of your patient. Will follow patient with you. Please call if any Qs. had d/w team Dr Juan Torres Office: [phone] Chief Complaint;RT toe wound HPI: Pt is a 68 F with hx of ESRD on hemodialysis (TTS) via AVF @ [facility], last dialysis Sat, chronic anemia, hyperphosphatemia, secondary hyperparathyroidism, Diabetes Mellitus, hypertension, CHF, PVD, obesity presented with complaints of Rt foot great toe infection and wound. pt is being seen by vascular as well Renal consult requested for ESRD management. pt denies any other complaints at this time ROS: s/p angioplasty for AVF stenosis 05/23/18 s/p RT lower extremity bypass surgery feels okay, no CP/SOB Physical Examination: General Appearance: Comfortable, in no acute respiratory distress, co-operative . Vitals reviewed and noted as below Head; Atraumatic, normocephalic ENT: no ulcers no thrush. Tongue is midline. Oropharynx: no rash or ulcers. EYES: Pupils are equal, round and reactive to light accommodation. Eye muscles and extraocular movement intact. Sclera is anicteric. Neck; supple no lymphadenopathy, no thyromegaly or bruit Lungs: Normal respiratory rate/effort. Breath sounds bilateral equal and clear Heart: Normal rate. s1s2 normal. No rub or gallop. Extremities: no edema. No varicose veins. Rt foot in dressing Neurological: Patient is alert awake follow commands Skin: Warm and dry. Normal turgor. No rash. Palpitation: Normal elasticity for age Abdomen: Abdomen is soft. Bowel sounds +. There is no abdominal tenderness, no guarding/rigidity or organomegaly Psych: normal insight and normal affect/mood MSK: no joint tenderness or swelling. Digits and nails normal, no deformity : kidney or bladder not palpable Access: AVF Labs/imaging reviewed. Past medical history, past surgical history, family history, social history, allergy reviewed and noted as below Family Hx: no hx of CKD. Non contributory Objective - Vital Signs/Intake and Output Vital Signs (last 24 hours): Temp Pulse Resp BP Pulse Ox 98.4 F 74 20 145/72 95 05/30/18 07:00 05/30/18 07:00 05/30/18 07:00 05/30/18 07:00 05/30/18 07:00 - Medications Medications: Current Medications Acetaminophen (Tylenol 325mg Tab) 650 mg PO Q6 PRN PRN Reason: Pain, Mild (1-3) Apixaban (Eliquis) 2.5 mg PO BID [facility] Last Admin: 05/30/18 09:43 Dose: 2.5 mg Aspirin (Ecotrin) 81 mg PO DAILY [facility] Last Admin: 05/27/18 13:32 Dose: 81 mg Carvedilol (Coreg) 3.125 mg PO BID [facility] Last Admin: 05/30/18 09:43 Dose: 3.125 mg Dextrose (Dextrose 50% Inj) 0 ml IV STAT PRN; Protocol PRN Reason: Hypoglycemia Protocol Dextrose (Glutose 15) 0 gm PO ONCE PRN; Protocol PRN Reason: Hypoglycemia Protocol Epoetin Etienne (Procrit) 12,000 unit IV TTS [facility] Folic Acid (Folic Acid) 1 mg PO DAILY [facility] Last Admin: 11/23/18 09:43 Dose: 1 mg Glucagon (Glucagen Diagnostic Kit) 0 mg IM STAT PRN; Protocol PRN Reason: Hypoglycemia Protocol Heparin Sodium (Porcine) (Heparin) 2,000 units IVP TTS [facility] Last Admin: 05/29/18 10:05 Dose: 2,000 units Hydromorphone HCl (Dilaudid) 0.5 mg IVP Q4H PRN PRN Reason: Pain, severe (8-10) Cefepime HCl 1 gm/ Dextrose 50 mls @ 100 mls/hr IVPB Q24H [facility]; Protocol Last Admin: 05/29/18 17:00 Dose: 100 mls/hr Insulin Human Regular (Novolin R) 0 unit SC ACHS [facility]; Protocol Last Admin: 05/30/18 11:36 Dose: 4 units Losartan Potassium (Cozaar) 100 mg PO QPM [facility] Last Admin: 05/29/18 18:26 Dose: 100 mg Oxycodone/Acetaminophen (Percocet 5/325 Mg Tab) 1 tab PO Q4H PRN PRN Reason: Pain, moderate (4-7) Stop: 05/31/18 16:50 Oxycodone/Acetaminophen (Percocet 5/325 Mg Tab) 2 tab PO Q4H PRN PRN Reason: Pain, severe (8-10) Stop: 05/31/18 16:50 Rosuvastatin Calcium (Crestor) 10 mg PO HS [facility] Sevelamer Carbonate (Renvela) 800 mg PO TIDCC [facility] Last Admin: 05/30/18 11:36 Dose: 800 mg Thiamine HCl (Vitamin B1 Tab) 100 mg PO BID [facility] Last Admin: 05/30/18 09:43 Dose: 100 mg Vitamin B Complex/Vit C/Folic Acid (Nephro-Naren) 1 tab PO 0800 [facility] Last Admin: 05/30/18 08:45 Dose: 1 tab - Labs Labs: 05/30/18 11:18 05/30/18 11:18 PT 16.2 SECONDS (9.7-12.2) H 05/28/18 07:12 INR 1.5 05/28/18 07:12 APTT 34 SECONDS (21-34) 05/28/18 07:12
[2018-05-31] MEDS: (Novolin R) Insulin Human Regular 100 units/ml vial SC SCH ×4 (07:30→21:35)
[2018-05-31] MEDS: Multivitamin Vitamin B Complex (Nephro-Vite) Tab PO SCH (08:00)
[2018-05-31] MEDS ORDERED: EPOETIN ALFA 4,000 UNIT/ML ML Dialysis IV SCH (10:00)
[2018-05-31 14:20] LABS: BASO # 0.1 K/uL (0.0-0.2); BASO % 0.9 % (0.0-2.0); EOS # 0.4 K/uL (0.0-0.7); EOS % 5.6 % (0.0-4.0); HEMOGLOBIN 7.7 g/dL (11.0-16.0); LYMPH % 13.8 % (20.0-40.0); MEAN CELL VOLUME 100.9 fL (81.0-99.0); MEAN CORPUSCULAR HEMOGLOBIN 33.1 pg (27.0-31.0); MEAN CORPUSCULAR HGB CONC 32.8 g/dL (33.0-37.0); MEAN PLATELET VOLUME 8.1 fL (7.2-11.7); MONO # 0.9 K/uL (0.0-0.8); MONO % 11.8 % (0.0-10.0); NEUT % 67.9 % (50.0-75.0); NRBC % 0.1 % (0.0-2.0); RBC 2.31 Mil/uL (3.80-5.20); RED CELL DISTRIBUTION WIDTH 15.3 % (11.5-14.5); WHITE BLOOD COUNT 7.4 K/uL (4.8-10.8)
[2018-05-31 14:40] LABS: ALBUMIN 2.9 g/dL (3.5-5.0); CALCIUM 7.6 mg/dl (8.6-10.4)
--- NOTE | 2018-05-31 16:35 | CP.PCM.PN ---
Subjective - Date & Time of Evaluation Date of Evaluation: 05/31/18 Time of Evaluation: 16:32 - Subjective Subjective: renal follow up note Nephrology Consultation Note: Assessment: Stable Rt foot great toe necrosis/gangrene with PVD s/p popliteal artery bypass s/p angioplasty for AVF stenosis 05/23/18 Diabetic chronic Kidney Disease (E11.22) Hypertensive Chronic Kidney Disease (I12.0) End stage renal disease (N18.6) dependence on hemodialysis (Z99.2) (TTS) via AVF Anemia (D64.9), Hyperphosphatemia (E83.39), Secondary Hyperparathyroidism (E 21.1), HTN (I12.0) Obesity, sys CHF with moderate to severe TR Plan: dialysis TTS continue per schedule Continue with Nephrovite 1 tab/day. pt had severe allergic reaction to polysulphone dialyzers (cardiac arrest) in past, hence uses only [place] Exeltra. PRBC as needed for anemia. on [place] with hd volume status stable Continue with phos binders, last phos level:4.2 BP control with meds as ordered. Objective - Vital Signs/Intake and Output Vital Signs (last 24 hours): Temp Pulse Resp BP Pulse Ox 98.7 F 78 18 159/85 H 97 05/31/18 14:00 05/31/18 14:00 05/31/18 14:00 05/31/18 15:20 05/31/18 07:41 Intake and Output: 05/31/18 05/31/18 06:59 18:59 Intake Total 250 Balance 250 - Medications Medications: Current Medications Acetaminophen (Tylenol 325mg Tab) 650 mg PO Q6 PRN PRN Reason: Pain, Mild (1-3) Apixaban (Eliquis) 2.5 mg PO BID [facility] Last Admin: 05/31/18 09:15 Dose: 2.5 mg Aspirin (Ecotrin) 81 mg PO DAILY [facility] Last Admin: 05/27/18 13:32 Dose: 81 mg Carvedilol (Coreg) 3.125 mg PO BID [facility] Last Admin: 05/31/18 09:15 Dose: 3.125 mg Dextrose (Dextrose 50% Inj) 0 ml IV STAT PRN; Protocol PRN Reason: Hypoglycemia Protocol Dextrose (Glutose 15) 0 gm PO ONCE PRN; Protocol PRN Reason: Hypoglycemia Protocol Epoetin Etienne (Procrit) 12,000 unit IV TTS [facility] Folic Acid (Folic Acid) 1 mg PO DAILY [facility] Last Admin: 05/31/18 09:15 Dose: 1 mg Glucagon (Glucagen Diagnostic Kit) 0 mg IM STAT PRN; Protocol PRN Reason: Hypoglycemia Protocol Heparin Sodium (Porcine) (Heparin) 2,000 units IVP TTS [facility] Last Admin: 05/31/18 14:40 Dose: 2,000 units Cefepime HCl 1 gm/ Dextrose 50 mls @ 100 mls/hr IVPB Q24H [facility]; Protocol Last Admin: 05/30/18 16:01 Dose: 100 mls/hr Insulin Human Regular (Novolin R) 0 unit SC ACHS [facility]; Protocol Last Admin: 05/31/18 11:48 Dose: 3 units Losartan Potassium (Cozaar) 100 mg PO QPM [facility] Last Admin: 05/30/18 18:45 Dose: 100 mg Oxycodone/Acetaminophen (Percocet 5/325 Mg Tab) 1 tab PO Q4H PRN PRN Reason: Pain, moderate (4-7) Stop: 05/31/18 16:50 Oxycodone/Acetaminophen (Percocet 5/325 Mg Tab) 2 tab PO Q4H PRN PRN Reason: Pain, severe (8-10) Stop: 05/31/18 16:50 Rosuvastatin Calcium (Crestor) 10 mg PO HS [facility] Sevelamer Carbonate (Renvela) 800 mg PO TIDCC [facility] Last Admin: 05/31/18 11:49 Dose: 800 mg Thiamine HCl (Vitamin B1 Tab) 100 mg PO BID [facility] Last Admin: 05/31/18 09:15 Dose: 100 mg Vitamin B Complex/Vit C/Folic Acid (Nephro-Naren) 1 tab PO 0800 [facility] Last Admin: 05/31/18 08:00 Dose: 1 tab - Labs Labs: 05/31/18 14:13 05/31/18 14:13 PT 16.2 SECONDS (9.7-12.2) H 05/28/18 07:12 INR 1.5 05/28/18 07:12 APTT 34 SECONDS (21-34) 05/28/18 07:12
[2018-05-31] MEDS ORDERED: Epoetin Alfa Dialysis 20000 UNIT/ML Inj IV SCH (16:49)
--- NOTE | 2018-05-31 21:53 | CP.PCM.PN ---
Subjective - Date & Time of Evaluation Date of Evaluation: 05/31/18 Time of Evaluation: 12:05 - Subjective Subjective: Patient was seen and examined No cardiac events Objective - Constitutional Appears: No Acute Distress - Head Exam Head Exam: NORMAL INSPECTION, NORMOCEPHALIC - Eye Exam Eye Exam: Normal appearance, PERRL Pupil Exam: NORMAL ACCOMODATION - ENT Exam ENT Exam: Mucous Membranes Moist - Respiratory Exam Respiratory Exam: Clear to Ausculation Bilateral, NORMAL BREATHING PATTERN. absent: Decreased Breath Sounds - Cardiovascular Exam Cardiovascular Exam: +S1, +S2 - GI/Abdominal Exam GI & Abdominal Exam: Soft, Normal Bowel Sounds. absent: Distended, Tenderness - Extremities Exam Extremities Exam: absent: Pedal Edema, Tenderness Additional comments: right LE wrapped in dressing - Neurological Exam Neurological Exam: Alert, Awake, Oriented x3 - Psychiatric Exam Psychiatric exam: Normal Affect, Normal Mood - Skin Skin Exam: Dry, Intact, Normal Color, Warm Assessment and Plan - Assessment and Plan (Free Text) Plan: Moderate CAD Imaging: - Lexiscan: abnormal - S/P Cath: 1. L Main: Patent. 2. LAD: Mid 50% stenosis. 3. L Cx/OM: OM1 100% occluded ([employer]), Distal L Cx 60%. 4. RCA: Proximal 50%. 5. LV: EF 55% Management: - Medical management, may need outpatient PCI. - Continue with ASA, Eliquis, Coreg, Cozaar, and statin therapy. Objective - Vital Signs/Intake and Output Vital Signs (last 24 hours): Temp Pulse Resp BP Pulse Ox 97.8 F 70 16 174/89 H 97 05/31/18 17:35 05/31/18 17:35 05/31/18 17:35 05/31/18 17:35 05/31/18 17:35 - Medications Medications: Current Medications Acetaminophen (Tylenol 325mg Tab) 650 mg PO Q6 PRN PRN Reason: Pain, Mild (1-3) Apixaban (Eliquis) 2.5 mg PO BID [facility] Last Admin: 05/31/18 17:41 Dose: 2.5 mg Aspirin (Ecotrin) 81 mg PO DAILY [facility] Last Admin: 05/27/18 13:32 Dose: 81 mg Carvedilol (Coreg) 3.125 mg PO BID [facility] Last Admin: 05/31/18 17:04 Dose: 3.125 mg Dextrose (Dextrose 50% Inj) 0 ml IV STAT PRN; Protocol PRN Reason: Hypoglycemia Protocol Dextrose (Glutose 15) 0 gm PO ONCE PRN; Protocol PRN Reason: Hypoglycemia Protocol Epoetin Etienne (Procrit) 15,000 unit IV TTS [facility] Last Admin: 05/31/18 17:12 Dose: 15,000 unit Folic Acid (Folic Acid) 1 mg PO DAILY [facility] Last Admin: 05/31/18 09:15 Dose: 1 mg Glucagon (Glucagen Diagnostic Kit) 0 mg IM STAT PRN; Protocol PRN Reason: Hypoglycemia Protocol Heparin Sodium (Porcine) (Heparin) 2,000 units IVP TTS [facility] Last Admin: 05/31/18 14:40 Dose: 2,000 units Cefepime HCl 1 gm/ Dextrose 50 mls @ 100 mls/hr IVPB Q24H [facility]; Protocol Last Admin: 05/31/18 17:42 Dose: 100 mls/hr Insulin Human Regular (Novolin R) 0 unit SC ACHS [facility]; Protocol Last Admin: 05/31/18 21:35 Dose: Not Given Losartan Potassium (Cozaar) 100 mg PO QPM [facility] Last Admin: 05/31/18 17:41 Dose: 100 mg Rosuvastatin Calcium (Crestor) 10 mg PO HS [facility] Last Admin: 05/31/18 21:36 Dose: 10 mg Sevelamer Carbonate (Renvela) 800 mg PO TIDCC [facility] Last Admin: 05/31/18 17:43 Dose: 800 mg Thiamine HCl (Vitamin B1 Tab) 100 mg PO BID [facility] Last Admin: 05/31/18 17:44 Dose: 100 mg Vitamin B Complex/Vit C/Folic Acid (Nephro-Naren) 1 tab PO 0800 [facility] Last Admin: 05/31/18 08:00 Dose: 1 tab - Labs Labs: 05/31/18 14:13 05/31/18 14:13 PT 16.2 SECONDS (9.7-12.2) H 05/28/18 07:12 INR 1.5 05/28/18 07:12 APTT 34 SECONDS (21-34) 05/28/18 07:12
[2018-05-31 23:38] VITALS: RESP 20
[2018-06-01] MEDS: (Novolin R) Insulin Human Regular 100 units/ml vial SC SCH ×4 (07:41→22:01)
[2018-06-01 07:54] LABS: BASO # 0.1 K/uL (0.0-0.2); BASO % 0.9 % (0.0-2.0); EOS # 0.6 K/uL (0.0-0.7); EOS % 4.7 % (0.0-4.0); HEMOGLOBIN 8.1 g/dL (11.0-16.0); LYMPH # 1.9 K/uL (1.0-4.3); LYMPH % 14.1 % (20.0-40.0); MEAN CELL VOLUME 100.8 fL (81.0-99.0); MEAN CORPUSCULAR HEMOGLOBIN 32.6 pg (27.0-31.0); MEAN CORPUSCULAR HGB CONC 32.3 g/dL (33.0-37.0); MEAN PLATELET VOLUME 8.6 fL (7.2-11.7); MONO # 1.7 K/uL (0.0-0.8); MONO % 12.7 % (0.0-10.0); NEUT # 8.9 K/uL (1.8-7.0); NEUT % 67.6 % (50.0-75.0); NRBC % 0.1 % (0.0-2.0); RBC 2.5 Mil/uL (3.80-5.20); RED CELL DISTRIBUTION WIDTH 15.4 % (11.5-14.5)
[2018-06-01] MEDS: Multivitamin Vitamin B Complex (Nephro-Vite) Tab PO SCH (08:01)
[2018-06-01 08:06] LABS: ALB/GLOB RATIO 0.8 (1.0-2.1); ALBUMIN 2.9 g/dL (3.5-5.0); CALCIUM 8.4 mg/dl (8.6-10.4)
[2018-06-01 08:23] LABS: WHITE BLOOD COUNT 13.1 K/uL (4.8-10.8)
--- NOTE | 2018-06-01 10:31 | CP.PCM.PN ---
Subjective - Date & Time of Evaluation Date of Evaluation: 06/01/18 Time of Evaluation: 10:29 - Subjective Subjective: Podiatry Progress Note for Dr. Dior 68F seen at bedside for 4 day s/p right hallux amputation with primary closure. Patient is AAO x 3 and NAD. Denies any acute overnight events or new pedal complaints. Denies any pain to the toe, denies any acute overnight events. Denies any recent N/V/F/C/CP/SOB/D Objective - Vital Signs/Intake and Output Vital Signs (last 24 hours): Temp Pulse Resp BP Pulse Ox 98.6 F 69 20 102/61 96 06/01/18 07:52 06/01/18 07:52 06/01/18 07:52 06/01/18 07:52 06/01/18 07:52 - Medications Medications: Current Medications Acetaminophen (Tylenol 325mg Tab) 650 mg PO Q6 PRN PRN Reason: Pain, Mild (1-3) Apixaban (Eliquis) 2.5 mg PO BID [facility] Last Admin: 06/01/18 09:22 Dose: 2.5 mg Aspirin (Ecotrin) 81 mg PO DAILY [facility] Last Admin: 05/27/18 13:32 Dose: 81 mg Carvedilol (Coreg) 3.125 mg PO BID [facility] Last Admin: 06/01/18 09:22 Dose: 3.125 mg Dextrose (Dextrose 50% Inj) 0 ml IV STAT PRN; Protocol PRN Reason: Hypoglycemia Protocol Dextrose (Glutose 15) 0 gm PO ONCE PRN; Protocol PRN Reason: Hypoglycemia Protocol Epoetin Etienne (Procrit) 15,000 unit IV TTS [facility] Last Admin: 05/31/18 17:12 Dose: 15,000 unit Folic Acid (Folic Acid) 1 mg PO DAILY [facility] Last Admin: 06/01/18 09:22 Dose: 1 mg Glucagon (Glucagen Diagnostic Kit) 0 mg IM STAT PRN; Protocol PRN Reason: Hypoglycemia Protocol Heparin Sodium (Porcine) (Heparin) 2,000 units IVP TTS [facility] Last Admin: 05/31/18 14:40 Dose: 2,000 units Cefepime HCl 1 gm/ Dextrose 50 mls @ 100 mls/hr IVPB Q24H [facility]; Protocol Last Admin: 05/31/18 17:42 Dose: 100 mls/hr Insulin Human Regular (Novolin R) 0 unit SC ACHS [facility]; Protocol Last Admin: 06/01/18 07:41 Dose: Not Given Losartan Potassium (Cozaar) 100 mg PO QPM [facility] Last Admin: 05/31/18 17:41 Dose: 100 mg Rosuvastatin Calcium (Crestor) 10 mg PO HS [facility] Last Admin: 05/31/18 21:36 Dose: 10 mg Sevelamer Carbonate (Renvela) 800 mg PO TIDCC [facility] Last Admin: 06/01/18 08:01 Dose: 800 mg Thiamine HCl (Vitamin B1 Tab) 100 mg PO BID [facility] Last Admin: 06/01/18 09:22 Dose: 100 mg Vitamin B Complex/Vit C/Folic Acid (Nephro-Naren) 1 tab PO 0800 [facility] Last Admin: 06/01/18 08:01 Dose: 1 tab - Labs Labs: 06/01/18 07:25 06/01/18 07:25 PT 16.2 SECONDS (9.7-12.2) H 05/28/18 07:12 INR 1.5 05/28/18 07:12 APTT 34 SECONDS (21-34) 05/28/18 07:12 - Constitutional Appears: Well, Non-toxic - Head Exam Head Exam: ATRAUMATIC - Extremities Exam Additional comments: vascular: pulses nonpalpable, cFT <3 secs x 3, TG warm to warm from leg to toes, minimal edema noted around the amputation site at the first MPJ, no erythema noted derm: surgical site noted at the distal 1st met, sutures intact, no wound d ehiscence, no malodor, no drainage noted upon expression, vicky drain intact at submet 1, no clinical signs of infection. neuro: protective sensation diminished ortho: no pain on palpation to the surgical site. - Neurological Exam Neurological Exam: Alert, Awake, Oriented x3 - Psychiatric Exam Psychiatric exam: Normal Affect Assessment and Plan - Assessment and Plan (Free Text) Assessment: 68F seen at bedside s/p 4 day right hallux amputation Plan: Patient seen and evaluated with Dr. Dior Wound cx toe: Proteus Mirabili, Citrobacter Freundii Continue abx per ID bone pathology pending Foot dressed with betadine soaked gauze and DSD Patient stable for discharge from podiatry point of view; patient will follow up with Dr Dior in his office within a week of discharge, Keep dressing dry, clean and intact. Podiatry will continue to follow while patient in house
--- NOTE | 2018-06-01 18:52 | CP.PCM.PN ---
Subjective - Date & Time of Evaluation Date of Evaluation: 06/01/18 Time of Evaluation: 10:30 - Subjective Subjective: Patient was seen and examined No cardiac events Denies chest pain and dyspnea Objective - Constitutional Appears: No Acute Distress - Head Exam Head Exam: NORMAL INSPECTION, NORMOCEPHALIC - Eye Exam Eye Exam: Normal appearance, PERRL Pupil Exam: NORMAL ACCOMODATION - ENT Exam ENT Exam: Mucous Membranes Moist - Respiratory Exam Respiratory Exam: Clear to Ausculation Bilateral, NORMAL BREATHING PATTERN. absent: Decreased Breath Sounds - Cardiovascular Exam Cardiovascular Exam: +S1, +S2 - GI/Abdominal Exam GI & Abdominal Exam: Soft, Normal Bowel Sounds. absent: Distended, Tenderness - Extremities Exam Extremities Exam: absent: Pedal Edema, Tenderness Additional comments: right LE wrapped in dressing - Neurological Exam Neurological Exam: Alert, Awake, Oriented x3 - Psychiatric Exam Psychiatric exam: Normal Affect, Normal Mood - Skin Skin Exam: Dry, Intact, Normal Color, Warm Assessment and Plan - Assessment and Plan (Free Text) Plan: Moderate CAD Imaging: - Lexiscan: abnormal - S/P Cath: 1. L Main: Patent. 2. LAD: Mid 50% stenosis. 3. L Cx/OM: OM1 100% occluded ([employer]), Distal L Cx 60%. 4. RCA: Proximal 50%. 5. LV: EF 55% Management: - Medical management, may need outpatient PCI. - Continue with ASA, Eliquis, Coreg, Cozaar, and statin therapy. Objective - Vital Signs/Intake and Output Vital Signs (last 24 hours): Temp Pulse Resp BP Pulse Ox 99.1 F 73 20 145/71 97 06/01/18 15:00 06/01/18 15:00 06/01/18 15:00 06/01/18 15:00 06/01/18 15:00 - Medications Medications: Current Medications Acetaminophen (Tylenol 325mg Tab) 650 mg PO Q6 PRN PRN Reason: Pain, Mild (1-3) Apixaban (Eliquis) 2.5 mg PO BID [facility] Last Admin: 06/01/18 17:45 Dose: 2.5 mg Aspirin (Ecotrin) 81 mg PO DAILY [facility] Last Admin: 05/27/18 13:32 Dose: 81 mg Carvedilol (Coreg) 3.125 mg PO BID [facility] Last Admin: 06/01/18 17:46 Dose: 3.125 mg Dextrose (Dextrose 50% Inj) 0 ml IV STAT PRN; Protocol PRN Reason: Hypoglycemia Protocol Dextrose (Glutose 15) 0 gm PO ONCE PRN; Protocol PRN Reason: Hypoglycemia Protocol Epoetin Etienne (Procrit) 15,000 unit IV TTS [facility] Last Admin: 05/31/18 17:12 Dose: 15,000 unit Folic Acid (Folic Acid) 1 mg PO DAILY [facility] Last Admin: 06/01/18 09:22 Dose: 1 mg Glucagon (Glucagen Diagnostic Kit) 0 mg IM STAT PRN; Protocol PRN Reason: Hypoglycemia Protocol Heparin Sodium (Porcine) (Heparin) 2,000 units IVP TTS [facility] Last Admin: 05/31/18 14:40 Dose: 2,000 units Cefepime HCl 1 gm/ Dextrose 50 mls @ 100 mls/hr IVPB Q24H [facility]; Protocol Last Admin: 06/01/18 17:00 Dose: 100 mls/hr Insulin Human Regular (Novolin R) 0 unit SC ACHS [facility]; Protocol Last Admin: 06/01/18 16:00 Dose: 2 units Losartan Potassium (Cozaar) 100 mg PO QPM [facility] Last Admin: 06/01/18 17:45 Dose: 100 mg Rosuvastatin Calcium (Crestor) 10 mg PO HS [facility] Last Admin: 05/31/18 21:36 Dose: 10 mg Sevelamer Carbonate (Renvela) 800 mg PO TIDCC [facility] Last Admin: 06/01/18 17:46 Dose: 800 mg Thiamine HCl (Vitamin B1 Tab) 100 mg PO BID [facility] Last Admin: 06/01/18 17:45 Dose: 100 mg Vitamin B Complex/Vit C/Folic Acid (Nephro-Naren) 1 tab PO 0800 [facility] Last Admin: 06/01/18 08:01 Dose: 1 tab - Labs Labs: 06/01/18 07:25 06/01/18 07:25 PT 16.2 SECONDS (9.7-12.2) H 05/28/18 07:12 INR 1.5 05/28/18 07:12 APTT 34 SECONDS (21-34) 05/28/18 07:12
[2018-06-02] MEDS: Multivitamin Vitamin B Complex (Nephro-Vite) Tab PO SCH (08:31)
[2018-06-02] MEDS: (Novolin R) Insulin Human Regular 100 units/ml vial SC SCH ×3 (08:33→17:18)
[2018-06-02 08:37] LABS: BASO % 0.6 % (0.0-2.0); EOS # 0.5 K/uL (0.0-0.7); EOS % 6.3 % (0.0-4.0); HEMOGLOBIN 7.9 g/dL (11.0-16.0); LYMPH # 1.3 K/uL (1.0-4.3); LYMPH % 16.5 % (20.0-40.0); MEAN CELL VOLUME 100.3 fL (81.0-99.0); MEAN CORPUSCULAR HEMOGLOBIN 33.2 pg (27.0-31.0); MEAN CORPUSCULAR HGB CONC 33.1 g/dL (33.0-37.0); MEAN PLATELET VOLUME 7.7 fL (7.2-11.7); MONO % 12.8 % (0.0-10.0); NEUT % 63.8 % (50.0-75.0); RBC 2.39 Mil/uL (3.80-5.20); RED CELL DISTRIBUTION WIDTH 15.6 % (11.5-14.5); WHITE BLOOD COUNT 7.8 K/uL (4.8-10.8)
[2018-06-02 08:39] LABS: ALB/GLOB RATIO 0.9 (1.0-2.1); CALCIUM 8.5 mg/dl (8.6-10.4)
--- NOTE | 2018-06-02 08:45 | OP ---
PROCEDURE DATE: 05/28/2018 SURGEON: Willi Alexandre DPM [employer] OPERATOR: Peggy Argueta, PGY-1 ANESTHESIOLOGIST: Dr. Pompa. PREOPERATIVE DIAGNOSIS: Right hallux gangrene. POSTOPERATIVE DIAGNOSIS: Right hallux gangrene. PROCEDURE: Right hallux amputation. ANESTHESIA: IV sedation with local anesthesia, 20 mL of 1:1 mixture of 1% lidocaine and 0.25% Marcaine plain. INDICATIONS: This patient is a 68-year-old female with the above diagnosis. The patient has exhausted all conservative treatment at this time and now requires surgical intervention. The patient signed the consent after careful explanation of risk, benefits, complications, and alternatives for surgical procedures. No guarantees were given nor implied. N.p.o. status was confirmed prior to taking the patient to the OR. PREPARATION: The patient was brought into the operating room and placed on the operating room table in a supine position. Time-out was performed for identification of the correct patient and procedure. After induction of IV sedation, the patient received a total of 20 mL of 1:1 mixture of 1% lidocaine and 0.25% Marcaine plain in a local block type fashion. The right foot was then prepped and draped in normal sterile manner and procedure began. No tourniquet was used during the procedure. DESCRIPTION OF PROCEDURE: Attention was drawn to the dorsal aspect of the right first digit where a fishmouth incision was made circumferentially at the level of the PIPJ using a #15 blade. The incision was then extended down to the subcutaneous layer down to the level of the bone. Using a bone clamp to stabilize the toe, the first digit was then disarticulated from the foot at the level of the MPJ. The digit was passed from the operative field and sent to pathology. Using a first #15 blade, nonviable tissue was then excised from the site. Next the surgical site was copiously washed with sterile saline. Purdy drain was placed . At this time 3-0 chromic gut was used to reapproximate the skin and 3-0 Nylon was used to reapproximate the skin edges. The wound was then dressed with Xeroform, 4x4, Kerlix, and light Coban dressing. POSTOPERATIVE CONDITION: The patient tolerated the local anesthesia and procedure well and was escorted to the recovery room with neurovascular status intact to the right foot and vital signs stable. The patient is to remain weightbearing as tolerated. The patient will remain in-house. The Podiatry will continue to follow. The patient will continue to refuse IV antibiotics while inpatient at the hospital. Peggy Argueta Willi Alexandre DPM
--- NOTE | 2018-06-02 11:29 | CP.PCM.PN ---
Subjective - Date & Time of Evaluation Date of Evaluation: 06/02/18 Time of Evaluation: 11:30 - Subjective Subjective: PGY3 Note for Dr. Denis The patient was seen and examined at bedside this AM; the patient has no complaints and denies all symptoms. Objective - Vital Signs/Intake and Output Vital Signs (last 24 hours): Temp Pulse Resp BP Pulse Ox 98.9 F 72 20 125/66 99 06/01/18 23:34 06/02/18 10:21 06/02/18 10:21 06/02/18 10:21 06/02/18 10:21 Intake and Output: 06/02/18 06/02/18 06:59 18:59 Intake Total 350 Balance 350 - Medications Medications: Current Medications Acetaminophen (Tylenol 325mg Tab) 650 mg PO Q6 PRN PRN Reason: Pain, Mild (1-3) Apixaban (Eliquis) 2.5 mg PO BID [facility] Last Admin: 06/02/18 10:21 Dose: 2.5 mg Aspirin (Ecotrin) 81 mg PO DAILY [facility] Last Admin: 05/27/18 13:32 Dose: 81 mg Carvedilol (Coreg) 3.125 mg PO BID [facility] Last Admin: 06/02/18 10:21 Dose: 3.125 mg Dextrose (Dextrose 50% Inj) 0 ml IV STAT PRN; Protocol PRN Reason: Hypoglycemia Protocol Dextrose (Glutose 15) 0 gm PO ONCE PRN; Protocol PRN Reason: Hypoglycemia Protocol Epoetin Etienne (Procrit) 15,000 unit IV TTS [facility] Last Admin: 05/31/18 17:12 Dose: 15,000 unit Folic Acid (Folic Acid) 1 mg PO DAILY [facility] Last Admin: 06/02/18 10:21 Dose: 1 mg Glucagon (Glucagen Diagnostic Kit) 0 mg IM STAT PRN; Protocol PRN Reason: Hypoglycemia Protocol Heparin Sodium (Porcine) (Heparin) 2,000 units IVP TTS [facility] Last Admin: 05/31/18 14:40 Dose: 2,000 units Cefepime HCl 1 gm/ Dextrose 50 mls @ 100 mls/hr IVPB Q24H [facility]; Protocol Last Admin: 06/01/18 17:00 Dose: 100 mls/hr Insulin Human Regular (Novolin R) 0 unit SC ACHS [facility]; Protocol Last Admin: 06/02/18 08:33 Dose: 1 units Losartan Potassium (Cozaar) 100 mg PO QPM [facility] Last Admin: 06/01/18 17:45 Dose: 100 mg Rosuvastatin Calcium (Crestor) 10 mg PO HS [facility] Last Admin: 06/01/18 22:01 Dose: 10 mg Sevelamer Carbonate (Renvela) 800 mg PO TIDCC [facility] Last Admin: 06/02/18 08:31 Dose: 800 mg Thiamine HCl (Vitamin B1 Tab) 100 mg PO BID [facility] Last Admin: 06/02/18 10:21 Dose: 100 mg Vitamin B Complex/Vit C/Folic Acid (Nephro-Naren) 1 tab PO 0800 [facility] Last Admin: 06/02/18 08:31 Dose: 1 tab - Labs Labs: 06/02/18 08:16 06/02/18 08:16 PT 16.2 SECONDS (9.7-12.2) H 05/28/18 07:12 INR 1.5 05/28/18 07:12 APTT 34 SECONDS (21-34) 05/28/18 07:12 Assessment and Plan - Assessment and Plan (Free Text) Assessment: Appears: Non-toxic - Head Exam Head Exam: ATRAUMATIC - Eye Exam Eye Exam: EOMI - Neck Exam Neck Exam: Full ROM - Cardiovascular Exam Cardiovascular Exam: REGULAR RHYTHM - GI/Abdominal Exam GI & Abdominal Exam: Soft - Back Exam Back Exam: absent: CVA tenderness (L), CVA tenderness (R) - Neurological Exam Neurological Exam: Awake - Psychiatric Exam Psychiatric exam: Normal Affect - Skin Skin Exam: Warm Assessment and Plan - Assessment and Plan (Free Text) Assessment: 68yo F admitted for lower extremity arterial bypass complicated by gangrene of toe Gangrene of toe - Podiatry consult- Dr. Dior. recs appreciated. * Podiatric surgical intervention not recommended at this time * Wound cleansed and dressed with Dakin's solution wet to dry, Q12 * Hallux Amputation 05/28/18 - Vascular sx consult- Dr. Romero. recs appreciated. * s/p 05/23/18 aortofemoral angiogram w/ selective catherization of right femoral artery on 05/16. No intervention was done. Pt found to have severe tibial disease. Open to trifurcation. * Patient may need pop-DP bypass pending vein mapping results - Cardiology consulted for cardiac clearance- Dr. Ledesma; help appreciated * cath shows left main patent, LAD with 50 percent stenosis, left circumflex om 1 100 percent, occluded distal left circumflex 60 percent, ef of 30 percent, pt is moderate cardiac risk to proceed - ID consult- Dr. Nunez. recs appreciated. - Foot X-ray: soft tissue swelling noted, MRI recommended - LE US: severely decreased perfusion noted to the RLE; arterial wall calc ifications noted to the left - Blood cx x2: negative to date - Wound cx: + proteus mirabilis citrobacter freudii - Cefepime 1gm q24h PVD - Vascular surgery consult- Dr. Romero. recs appreciated. - s/p 05/26/18: right popliteal to dorsalis pedis artery bypass with reverse right saphenous vein graft - LE US: severely decreased perfusion noted to the RLE; arterial wall calcifications noted to the left - s/p aortofemoral angiogram w/ selective catherization of right femoral artery on 05/16. No intervention was done. Pt found to have severe tibial disease. Open to trifurcation. - Eliquis 2.5mg po bid ESRD on Dialysis - Nephrology consult- Dr. Caro; help appreciated - Continue Nephrovite, Sevelamer - Losartan 100mg QPM - Continue dialysis TTS - had fistulogram with balloon dilation on Thursday 05/[address] Romero; fistula functioning properly now Diabetes Mellitus - HGB a1c 6.7 - ISS - Hypoglycemia protocol - Accuchecks CAD - Continue Coreg 3.125mg PO BID - Cardio consult- Dr. Ledesma. recs appreciated. CHF;chronic not in acute exacerbation - Cardio consult- Dr. Ledesma; recs appreciated. - Continue Coreg 3.125mg PO BID Anemia - Likely secondary to CKD - Procrit 8000 IV TTS - Transfusions as needed Hypertension - Continue Losartan 100mg QPM Prophylaxis - Eliquis 2.5mg po bid - Heart healthy diet - PT/OT Dispo: The patient is stable for D/c to [facility] as per Dr. Denis -The patient should continue with the following medicines and treatments 1) c/w Eliquis 2.5mg BID 2) Coreg 3.125mg BID-->titrate dose up to 25mg BID 3) Insulin sliding scale to control diabetes 4) ESRD-->//Sat schedule 5) Phoslo and nephrovite daily 6) Cefepime for a total of 14 days from discharge; to end 06/16/18 7)C/w losartan 100mg daily 8)HLD-->c/w Rosuvastatin 10mg at night THe patient is stable for d/c as per Dr. Denis Case discussed with Dr. Denis
--- NOTE | 2018-06-02 12:00 | CP.PCM.PN ---
Subjective - Date & Time of Evaluation Date of Evaluation: 06/02/18 Time of Evaluation: 12:00 - Subjective Subjective: Nephrology Consultation Note: Assessment: Stable Rt foot great toe necrosis/gangrene with PVD s/p popliteal artery bypass and toe amputation s/p angioplasty for AVF stenosis 05/23/18 Diabetic chronic Kidney Disease (E11.22) Hypertensive Chronic Kidney Disease (I12.0) End stage renal disease (N18.6) dependence on hemodialysis (Z99.2) (TTS) via AVF Anemia (D64.9), Hyperphosphatemia (E83.39), Secondary Hyperparathyroidism (E21 .1), HTN (I12.0) Obesity, sys CHF with moderate to severe TR Plan: Will plan for dialysis as per TTS. Continue with Nephrovite 1 tab/day. pt had severe allergic reaction to polysulphone dialyzers (cardiac arrest) in past, hence uses only [place] Exeltra. PRBC as needed for anemia. on [place] with dialysis as last Hb 8 Continue with phos binders, last phos level:4.2 BP control with meds as ordered. Patient on RAAS kam as losartan. Glycemic control, Dialysis consistent diet Further work up/management as per primary team Dose meds/antibiotics (if needed) for ESRD status. Avoid fleets enema/magnesium based laxatives. Thanks for allowing me to participate in care of your patient. Will follow estrella melchor with you. Please call if any Qs. had d/w team Dr Juan Torres Office: [phone] Chief Complaint;RT toe wound HPI: Pt is a 68 F with hx of ESRD on hemodialysis (TTS) via AVF @ [facility], last dialysis Sat, chronic anemia, hyperphosphatemia, secondary hyperparathyroidism, Diabetes Mellitus, hypertension, CHF, PVD, obesity presented with complaints of Rt foot great toe infection and wound. pt is being seen by vascular as well Renal consult requested for ESRD management. pt denies any other complaints at this time ROS: s/p angioplasty for AVF stenosis 05/23/18 s/p RT lower extremity bypass surgery feels okay, no CP/SOB Physical Examination: General Appearance: Comfortable, in no acute respiratory distress, co-operative . Vitals reviewed and noted as below Head; Atraumatic, normocephalic ENT: no ulcers no thrush. Tongue is midline. Oropharynx: no rash or ulcers. EYES: Pupils are equal, round and reactive to light accommodation. Eye muscles and extraocular movement intact. Sclera is anicteric. Neck; supple no lymphadenopathy, no thyromegaly or bruit Lungs: Normal respiratory rate/effort. Breath sounds bilateral equal and clear Heart: Normal rate. s1s2 normal. No rub or gallop. Extremities: no edema. No varicose veins. Rt foot in dressing Neurological: Patient is alert awake follow commands Skin: Warm and dry. Normal turgor. No rash. Palpitation: Normal elasticity for age Abdomen: Abdomen is soft. Bowel sounds +. There is no abdominal tenderness, no guarding/rigidity or organomegaly Psych: normal insight and normal affect/mood MSK: no joint tenderness or swelling. Digits and nails normal, no deformity : kidney or bladder not palpable Access: AVF Labs/imaging reviewed. Past medical history, past surgical history, family history, social history, allergy reviewed and noted as below Family Hx: no hx of CKD. Non contributory Objective - Vital Signs/Intake and Output Vital Signs (last 24 hours): Temp Pulse Resp BP Pulse Ox 98.9 F 72 20 125/66 99 06/01/18 23:34 06/02/18 10:21 06/02/18 10:21 06/02/18 10:21 06/02/18 10:21 Intake and Output: 06/02/18 06/02/18 06:59 18:59 Intake Total 350 Balance 350 - Medications Medications: Current Medications Acetaminophen (Tylenol 325mg Tab) 650 mg PO Q6 PRN PRN Reason: Pain, Mild (1-3) Apixaban (Eliquis) 2.5 mg PO BID [facility] Last Admin: 06/02/18 10:21 Dose: 2.5 mg Aspirin (Ecotrin) 81 mg PO DAILY [facility] Last Admin: 05/27/18 13:32 Dose: 81 mg Carvedilol (Coreg) 3.125 mg PO BID [facility] Last Admin: 06/02/18 10:21 Dose: 3.125 mg Dextrose (Dextrose 50% Inj) 0 ml IV STAT PRN; Protocol PRN Reason: Hypoglycemia Protocol Dextrose (Glutose 15) 0 gm PO ONCE PRN; Protocol PRN Reason: Hypoglycemia Protocol Epoetin Etienne (Procrit) 15,000 unit IV TTS [facility] Last Admin: 05/31/18 17:12 Dose: 15,000 unit Folic Acid (Folic Acid) 1 mg PO DAILY [facility] Last Admin: 06/02/18 10:21 Dose: 1 mg Glucagon (Glucagen Diagnostic Kit) 0 mg IM STAT PRN; Protocol PRN Reason: Hypoglycemia Protocol Heparin Sodium (Porcine) (Heparin) 2,000 units IVP TTS [facility] Last Admin: 05/31/18 14:40 Dose: 2,000 units Cefepime HCl 1 gm/ Dextrose 50 mls @ 100 mls/hr IVPB Q24H [facility]; Protocol Last Admin: 06/01/18 17:00 Dose: 100 mls/hr Insulin Human Regular (Novolin R) 0 unit SC ACHS [facility]; Protocol Last Admin: 06/02/18 11:53 Dose: 4 units Losartan Potassium (Cozaar) 100 mg PO QPM [facility] Last Admin: 06/01/18 17:45 Dose: 100 mg Rosuvastatin Calcium (Crestor) 10 mg PO HS [facility] Last Admin: 06/01/18 22:01 Dose: 10 mg Sevelamer Carbonate (Renvela) 800 mg PO TIDCC [facility] Last Admin: 06/02/18 11:53 Dose: 800 mg Thiamine HCl (Vitamin B1 Tab) 100 mg PO BID [facility] Last Admin: 06/02/18 10:21 Dose: 100 mg Vitamin B Complex/Vit C/Folic Acid (Nephro-Naren) 1 tab PO 0800 [facility] Last Admin: 06/02/18 08:31 Dose: 1 tab - Labs Labs: 06/02/18 08:16 06/02/18 08:16 PT 16.2 SECONDS (9.7-12.2) H 05/28/18 07:12 INR 1.5 05/28/18 07:12 APTT 34 SECONDS (21-34) 05/28/18 07:12
--- NOTE | 2018-06-02 12:11 | CP.PCM.PN ---
<Doris Casey - Last Filed: 06/02/18 12:09> Subjective - Date & Time of Evaluation Date of Evaluation: 06/02/18 Time of Evaluation: 10:00 - Subjective Subjective: Cardiology Follow Up Note Patient was seen and examined at bedside. Patient denied any chest pain, shortness of breath, or palpitations. Objective - Vital Signs/Intake and Output Vital Signs (last 24 hours): Temp Pulse Resp BP Pulse Ox 98.9 F 72 20 125/66 99 06/01/18 23:34 06/02/18 10:21 06/02/18 10:21 06/02/18 10:21 06/02/18 10:21 Intake and Output: 06/02/18 06/02/18 06:59 18:59 Intake Total 350 Balance 350 - Medications Medications: Current Medications Acetaminophen (Tylenol 325mg Tab) 650 mg PO Q6 PRN PRN Reason: Pain, Mild (1-3) Apixaban (Eliquis) 2.5 mg PO BID [facility] Last Admin: 06/02/18 10:21 Dose: 2.5 mg Aspirin (Ecotrin) 81 mg PO DAILY [facility] Last Admin: 05/27/18 13:32 Dose: 81 mg Carvedilol (Coreg) 3.125 mg PO BID [facility] Last Admin: 06/02/18 10:21 Dose: 3.125 mg Dextrose (Dextrose 50% Inj) 0 ml IV STAT PRN; Protocol PRN Reason: Hypoglycemia Protocol Dextrose (Glutose 15) 0 gm PO ONCE PRN; Protocol PRN Reason: Hypoglycemia Protocol Epoetin Etienne (Procrit) 15,000 unit IV TTS [facility] Last Admin: 05/31/18 17:12 Dose: 15,000 unit Folic Acid (Folic Acid) 1 mg PO DAILY [facility] Last Admin: 06/02/18 10:21 Dose: 1 mg Glucagon (Glucagen Diagnostic Kit) 0 mg IM STAT PRN; Protocol PRN Reason: Hypoglycemia Protocol Heparin Sodium (Porcine) (Heparin) 2,000 units IVP TTS [facility] Last Admin: 05/31/18 14:40 Dose: 2,000 units Cefepime HCl 1 gm/ Dextrose 50 mls @ 100 mls/hr IVPB Q24H [facility]; Protocol Last Admin: 06/01/18 17:00 Dose: 100 mls/hr Insulin Human Regular (Novolin R) 0 unit SC ACHS [facility]; Protocol Last Admin: 06/02/18 11:53 Dose: 4 units Losartan Potassium (Cozaar) 100 mg PO QPM [facility] Last Admin: 06/01/18 17:45 Dose: 100 mg Rosuvastatin Calcium (Crestor) 10 mg PO HS [facility] Last Admin: 06/01/18 22:01 Dose: 10 mg Sevelamer Carbonate (Renvela) 800 mg PO TIDCC [facility] Last Admin: 06/02/18 11:53 Dose: 800 mg Thiamine HCl (Vitamin B1 Tab) 100 mg PO BID [facility] Last Admin: 06/02/18 10:21 Dose: 100 mg Vitamin B Complex/Vit C/Folic Acid (Nephro-Naren) 1 tab PO 0800 [facility] Last Admin: 06/02/18 08:31 Dose: 1 tab - Labs Labs: 06/02/18 08:16 06/02/18 08:16 PT 16.2 SECONDS (9.7-12.2) H 05/28/18 07:12 INR 1.5 05/28/18 07:12 APTT 34 SECONDS (21-34) 05/28/18 07:12 - Additional Findings Additional findings: - Constitutional Appears: No Acute Distress - Head Exam Head Exam: NORMAL INSPECTION, NORMOCEPHALIC - Eye Exam Eye Exam: Normal appearance, PERRL Pupil Exam: NORMAL ACCOMODATION - ENT Exam ENT Exam: Mucous Membranes Moist - Respiratory Exam Respiratory Exam: Clear to Ausculation Bilateral, NORMAL BREATHING PATTERN. absent: Decreased Breath Sounds - Cardiovascular Exam Cardiovascular Exam: +S1, +S2 - GI/Abdominal Exam GI & Abdominal Exam: Soft, Normal Bowel Sounds. absent: Distended, Tenderness - Extremities Exam Extremities Exam: absent: Pedal Edema, Tenderness Additional comments: right LE wrapped in dressing - Neurological Exam Neurological Exam: Alert, Awake, Oriented x3 - Psychiatric Exam Psychiatric exam: Normal Affect, Normal Mood - Skin Skin Exam: Dry, Intact, Normal Color, Warm Assessment and Plan - Assessment and Plan (Free Text) Plan: Moderate CAD Imaging: - Lexiscan: abnormal - S/P Cath: 1. L Main: Patent. 2. LAD: Mid 50% stenosis. 3. L Cx/OM: OM1 100% occluded (MATHEMATICS ACADEMIC CHAIR), Distal L Cx 60%. 4. RCA: Proximal 50%. 5. LV: EF 55% Management: - Medical management, may need outpatient PCI. - Continue with medical management: ASA, Eliquis, Coreg, Cozaar, and statin therapy. Case discussed with Dr. Ledesma, Doris Casey DO, PGY2 <Arnulfo Ledesma - Last Filed: 06/02/18 23:42> Objective - Vital Signs/Intake and Output Vital Signs (last 24 hours): Temp Pulse Resp BP Pulse Ox 97.8 F 76 20 159/72 H 95 06/02/18 15:50 06/02/18 15:50 06/02/18 15:50 06/02/18 15:50 06/02/18 15:50 Intake and Output: 06/02/18 06/03/18 18:59 06:59 Intake Total 500 Balance 500 - Labs Labs: 06/02/18 08:16 06/02/18 08:16 PT 16.2 SECONDS (9.7-12.2) H 05/28/18 07:12 INR 1.5 05/28/18 07:12 APTT 34 SECONDS (21-34) 05/28/18 07:12 Assessment and Plan - Assessment and Plan (Free Text) Plan: Patient seen and evaluated personally by ks Plan of care d/w the hospital medical assistant and as documented
[2018-06-02 15:50] VITALS: BP 159/72; PULSE 76; TEMP 97.8; O2SAT 95
--- NOTE | 2018-06-02 16:28 | CP.PCM.PN ---
Subjective - Date & Time of Evaluation Date of Evaluation: 06/02/18 Time of Evaluation: 10:20 - Subjective Subjective: Podiatry Progress Note: Dr. Dior 68 year old female seen and evaluated at bedside 5 days s/p right hallux amputation with primary closure. Patient is AAOx3 and NAD. Denies any acute overnight events or new pedal complaints. Denies any pain to the toe, denies any acute overnight events. Reports that she recently had the vascular procedure performed. Denies any recent N/V/F/C/CP/SOB/D Objective - Vital Signs/Intake and Output Vital Signs (last 24 hours): Temp Pulse Resp BP Pulse Ox 97.8 F 76 20 159/72 H 95 06/02/18 15:50 06/02/18 15:50 06/02/18 15:50 06/02/18 15:50 06/02/18 15:50 Intake and Output: 06/02/18 06/02/18 06:59 18:59 Intake Total 350 500 Balance 350 500 - Medications Medications: Current Medications Acetaminophen (Tylenol 325mg Tab) 650 mg PO Q6 PRN PRN Reason: Pain, Mild (1-3) Apixaban (Eliquis) 2.5 mg PO BID [facility] Last Admin: 06/02/18 10:21 Dose: 2.5 mg Aspirin (Ecotrin) 81 mg PO DAILY [facility] Last Admin: 05/27/18 13:32 Dose: 81 mg Carvedilol (Coreg) 3.125 mg PO BID [facility] Last Admin: 06/02/18 10:21 Dose: 3.125 mg Dextrose (Dextrose 50% Inj) 0 ml IV STAT PRN; Protocol PRN Reason: Hypoglycemia Protocol Dextrose (Glutose 15) 0 gm PO ONCE PRN; Protocol PRN Reason: Hypoglycemia Protocol Epoetin Etienne (Procrit) 15,000 unit IV TTS [facility] Last Admin: 05/31/18 17:12 Dose: 15,000 unit Folic Acid (Folic Acid) 1 mg PO DAILY [facility] Last Admin: 06/02/18 10:21 Dose: 1 mg Glucagon (Glucagen Diagnostic Kit) 0 mg IM STAT PRN; Protocol PRN Reason: Hypoglycemia Protocol Heparin Sodium (Porcine) (Heparin) 2,000 units IVP TTS [facility] Last Admin: 05/31/18 14:40 Dose: 2,000 units Cefepime HCl 1 gm/ Dextrose 50 mls @ 100 mls/hr IVPB Q24H [facility]; Protocol Last Admin: 06/01/18 17:00 Dose: 100 mls/hr Insulin Human Regular (Novolin R) 0 unit SC ACHS [facility]; Protocol Last Admin: 06/02/18 11:53 Dose: 4 units Losartan Potassium (Cozaar) 100 mg PO QPM [facility] Last Admin: 06/01/18 17:45 Dose: 100 mg Rosuvastatin Calcium (Crestor) 10 mg PO HS [facility] Last Admin: 06/01/18 22:01 Dose: 10 mg Sevelamer Carbonate (Renvela) 800 mg PO TIDCC [facility] Last Admin: 06/02/18 11:53 Dose: 800 mg Thiamine HCl (Vitamin B1 Tab) 100 mg PO BID [facility] Last Admin: 06/02/18 10:21 Dose: 100 mg Vitamin B Complex/Vit C/Folic Acid (Nephro-Naren) 1 tab PO 0800 [facility] Last Admin: 06/02/18 08:31 Dose: 1 tab - Labs Labs: 06/02/18 08:16 06/02/18 08:16 PT 16.2 SECONDS (9.7-12.2) H 05/28/18 07:12 INR 1.5 05/28/18 07:12 APTT 34 SECONDS (21-34) 05/28/18 07:12 - Constitutional Appears: Well, Non-toxic, No Acute Distress - Extremities Exam Additional comments: VASC: pulses faintly palpable at PT, CFT <3 secs x 3, Temp gradient: warm to warm from leg to toes, minimal edema noted around the amputation site at the first MPJ, no erythema noted DERM: surgical site noted at the distal 1st met, sutures intact, no wound dehiscence, no malodor, no drainage noted upon expression, no clinical signs of infection. NEURO: protective sensation diminished ORTHO: no pain on palpation to the surgical site. - Neurological Exam Neurological Exam: Alert, Awake, Oriented x3 - Psychiatric Exam Psychiatric exam: Normal Affect, Normal Mood Assessment and Plan - Assessment and Plan (Free Text) Assessment: 68 year old female evaluated 5 days s/p right hallux amputation Plan: Patient seen and evaluated Discussed plan with Dr. Dior Wound cx toe: Proteus Mirabili, Citrobacter Freundii Continue abx per ID Foot dressed with betadine soaked gauze and DSD Bone pathology pending Allow WBAT to the RLE using surgical shoe Patient stable for discharge from podiatry point of view; patient will follow up with Dr Dior in his office within a week of discharge, Keep dressing dry, clean and intact. Podiatry will continue to follow while patient in house
--- NOTE | 2018-06-02 18:25 | PN ---
DATE: 06/02/2018 SUBJECTIVE: This is a 68-year-old black female, who had undergone right hallux amputation on Saturday. I see her today this afternoon. PHYSICAL EXAMINATION: GENERAL: Alert, orientated. Upon removal of the dressing on the right foot, we see that the surgical site is coapting nicely with no signs of dehiscence, drainage, or cellulitis. ASSESSMENT AND PLAN: At this time, I suggested to her son she be discharged to a sub-acute facility, because I think premature ambulation or pressure on the surgical site could be detrimental to the prior surgery. The patient's son agrees and I will be following up with the patient at [facility]. Willi Alexandre DPM
== END 2018-06-02 18:06 | DRG 252 ==
LOC: C.ER 18:59 → C.9E 20:31 → C.5S 23:10 → C.9S 05-26 12:22 → C.9I 05-26 17:09 → C.3T 05-27 14:52
PROVIDERS: ADMIT Internal Medicine Pulmonary Disease; ATTEND Internal Medicine Pulmonary Disease
PROC: 5A1D70Z Performance of Urinary Filtration, Intermittent, Less than 6 Hours Per Day (ICD-10-PCS; 2018-05-13)
PROC: 5A1D70Z Performance of Urinary Filtration, Intermittent, Less than 6 Hours Per Day (ICD-10-PCS; 2018-05-15)
PROC: B40D1ZZ Plain Radiography of Aorta and Bilateral Lower Extremity Arteries using Low Osmolar Contrast (ICD-10-PCS; 2018-05-16)
PROC: 5A1D70Z Performance of Urinary Filtration, Intermittent, Less than 6 Hours Per Day (ICD-10-PCS; 2018-05-17)
PROC: 4A023N7 Measurement of Cardiac Sampling and Pressure, Left Heart, Percutaneous Approach (ICD-10-PCS; 2018-05-20)
PROC: B2111ZZ Fluoroscopy of Multiple Coronary Arteries using Low Osmolar Contrast (ICD-10-PCS; 2018-05-20)
PROC: B2151ZZ Fluoroscopy of Left Heart using Low Osmolar Contrast (ICD-10-PCS; 2018-05-20)
PROC: 5A1D70Z Performance of Urinary Filtration, Intermittent, Less than 6 Hours Per Day (ICD-10-PCS; 2018-05-21)
PROC: 5A1D70Z Performance of Urinary Filtration, Intermittent, Less than 6 Hours Per Day (ICD-10-PCS; 2018-05-22)
PROC: 03773ZZ Dilation of Right Brachial Artery, Percutaneous Approach (ICD-10-PCS; 2018-05-23)
PROC: B50W1ZZ Plain Radiography of Dialysis Shunt/Fistula using Low Osmolar Contrast (ICD-10-PCS; 2018-05-23)
PROC: 5A1D70Z Performance of Urinary Filtration, Intermittent, Less than 6 Hours Per Day (ICD-10-PCS; 2018-05-23)
PROC: 5A1D70Z Performance of Urinary Filtration, Intermittent, Less than 6 Hours Per Day (ICD-10-PCS; 2018-05-24)
PROC: 041 Lower Arteries, Bypass (ICD-10-PCS; 2018-05-26)
PROC: 5A1D70Z Performance of Urinary Filtration, Intermittent, Less than 6 Hours Per Day (ICD-10-PCS; 2018-05-27)
PROC: 0JBQ0ZZ Excision of Right Foot Subcutaneous Tissue and Fascia, Open Approach (ICD-10-PCS; 2018-05-28)
PROC: 0QBN0ZZ Excision of Right Metatarsal, Open Approach (ICD-10-PCS; 2018-05-28)
PROC: 0Y6P0Z0 Detachment at Right 1st Toe, Complete, Open Approach (ICD-10-PCS; principal; 2018-05-28 13:00)
PROC: 5A1D70Z Performance of Urinary Filtration, Intermittent, Less than 6 Hours Per Day (ICD-10-PCS; 2018-05-29)
PROC: 5A1D70Z Performance of Urinary Filtration, Intermittent, Less than 6 Hours Per Day (ICD-10-PCS; 2018-05-31)
DX: E11.52 Type 2 diabetes mellitus with diabetic peripheral angiopathy with gangrene (principal); N18.6 End stage renal disease; M86.171 Other acute osteomyelitis, right ankle and foot; I13.2 Hypertensive heart and chronic kidney disease with heart failure and with stage 5 chronic kidney disease, or end stage renal disease; I50.22 Chronic systolic (congestive) heart failure; N25.81 Secondary hyperparathyroidism of renal origin; T82.858A Stenosis of other vascular prosthetic devices, implants and grafts, initial encounter; E11.628 Type 2 diabetes mellitus with other skin complications; E11.22 Type 2 diabetes mellitus with diabetic chronic kidney disease; E11.69 Type 2 diabetes mellitus with other specified complication; E83.39 Other disorders of phosphorus metabolism; I25.10 Atherosclerotic heart disease of native coronary artery without angina pectoris; L08.9 Local infection of the skin and subcutaneous tissue, unspecified; D63.1 Anemia in chronic kidney disease; D72.829 Elevated white blood cell count, unspecified; F03.90 Unspecified dementia, unspecified severity, without behavioral disturbance, psychotic disturbance, mood disturbance, and anxiety; F32.9 Major depressive disorder, single episode, unspecified; E78.5 Hyperlipidemia, unspecified; E78.00 Pure hypercholesterolemia, unspecified; E66.9 Obesity, unspecified; Y83.2 Surgical operation with anastomosis, bypass or graft as the cause of abnormal reaction of the patient, or of later complication, without mention of misadventure at the time of the procedure; Z89.422 Acquired absence of other left toe(s); Z99.2 Dependence on renal dialysis; Z68.32 Body mass index [BMI] 32.0-32.9, adult; Z79.899 Other long term (current) drug therapy

== ENCOUNTER 2018-10-08 12:22 | Emergency (ER) | payer MEDICARE, MEDICAID ==
[2018-10-08 12:23] VITALS: BMI 30.4
[2018-10-08 13:16] VITALS: TEMP 97.7; O2SAT 98
--- NOTE | 2018-10-08 15:17 | C.PDOC ---
History Of Present Illness 68 y/o female is brought in by her son from the [facility] for black discoloration of her right 2nd toe. Patient has history of right first toe amputation and peripheral vascular disease, prior evaluated by Dr. Romero. She denies pain or foul smelly odor. Time Seen by Provider: 10/08/18 13:43 Chief Complaint (Nursing): Lower Extremity Problem/Injury History Per: Patient History/Exam Limitations: no limitations Onset/Duration Of Symptoms: Days Current Symptoms Are (Timing): Still Present Past Medical History Reviewed: Historical Data, Nursing Documentation, Vital Signs Vital Signs: Last Vital Signs Temp 97.7 F 10/08/18 13:11 Pulse 87 10/08/18 13:11 Resp 18 10/08/18 13:11 BP 97/64 L 10/08/18 13:11 Pulse Ox 98 10/08/18 13:11 - Medical History PMH: CHF ("CHRONIC"), Dementia, Diabetes, HTN, Hypercholesterolemia, End Stage Renal Disease, Chronic Kidney Disease - [facility] Procedures (05/11/18) ANGIOPLASTY OF OTHER NON-CORONARY VESSEL(S) (09/15/14) ATHERECTOMY OF OTHER NON-CORONARY VESSEL(S) (01/14/14) BYPASS LEFT BRACHIAL ARTERY TO UPPER ARM VEIN, OPEN APPROACH (05/13/17) BYPASS R POPL ART TO FOOT ART W AUTOL VN, PERC ENDO (05/11/18) CONTRAST ARTERIOGRAM-LEG (09/15/14) DETACHMENT AT RIGHT 1ST TOE, COMPLETE, OPEN APPROACH (05/11/18) DILATE L POPL ART W INTRALUM DEV, DRUG BLLN, PERC (05/13/17) DILATION OF L POST TIB ART WITH INTRALUM DEV, PERC APPROACH (05/13/17) DILATION OF RIGHT BRACHIAL ARTERY, PERCUTANEOUS APPROACH (05/11/18) EXCISION OF R FOOT SUBCU/FASCIA, OPEN APPROACH (05/11/18) EXCISION OF RIGHT METATARSAL, OPEN APPROACH (05/11/18) EXTIRPATION OF MATTER FROM L POPL ART, PERC APPROACH (05/13/17) EXTIRPATION OF MATTER FROM L POST TIB ART, PERC APPROACH (05/13/17) FLUOROSCOPY OF AORTA AND BILATERAL LOWER EXTREMITY ARTERIES (05/13/17) FLUOROSCOPY OF LEFT HEART USING LOW OSMOLAR CONTRAST (05/11/18) FLUOROSCOPY OF MULT COR ART USING L OSM CONTRAST (05/11/18) FLUOROSCOPY OF SUP VENA CAVA USING L OSM CONTRAST, GUIDANCE (05/13/17) INSEJ [id number] PERIPHERAL NON-CORONARY VES STENT(S) (02/10/14) INSEJ OF DRUG-ELUTING STENT(S) OF OTH PERIPHERAL VESSEL(S) (09/15/14) INSERTION OF INFUSION DEV INTO SUP VENA CAVA, PERC APPROACH (05/13/17) INSERTION OF INFUSION DEVICE INTO LOWER VEIN, PERC APPROACH (05/13/17) INSERTION OF ONE VASCULAR STENT (09/15/14) LOC EXC LES METATAR/TAR (03/20/14) MEASURE OF CARDIAC SAMPL & PRESSURE, L HEART, PERC APPROACH (05/11/18) PACKED CELL TRANSFUSION (01/14/14) PLAIN RADIOGRAPHY OF AORTA, BI LE ART USING L OSM CONTRAST (05/11/18) PLAIN RADIOGRAPHY OF DIALYSIS SHUNT USING L OSM CONTRAST (05/11/18) PROCEDURE ON SINGLE VESSEL (09/15/14) RADICAL EXCIS SKIN LES (01/11/99) VENOUS CATHETERIZATION NEC (03/03/14) Family History: States: No Known Family Hx - Social History Hx Tobacco Use: No Hx Alcohol Use: No Hx Substance Use: No - Immunization History Hx Tetanus Toxoid Vaccination: No (unknown) Hx Influenza Vaccination: No (unknown) Hx Pneumococcal Vaccination: (unknown) Review Of Systems Except As Marked, All Systems Reviewed And Found Negative. Constitutional: Negative for: Fever, Chills Musculoskeletal: Positive for: Other (Discoloration of right 2nd toe). Negative for: Foot Pain Physical Exam - Physical Exam Appears: Non-toxic, No Acute Distress, Other (elderly black female) Skin: Warm, Dry Head: Atraumatic, Normacephalic Eye(s): bilateral: Normal Inspection Oral Mucosa: Moist Neck: Supple Cardiovascular: Rhythm Regular, No Murmur Respiratory: Normal Breath Sounds, No Rales, No Rhonchi, No Wheezing Extremity: Other (Right foot s/p great toe amputation; R 2nd toe last 2cm is black, dry, no foul smell; vascular scar on right lower leg, no pulses but skin is warm and dry) Extremity: Bilateral: Normal ROM Neurological/Psych: Oriented x3, Normal Speech ED Course And Treatment O2 Sat by Pulse Oximetry: 98 (RA) Pulse Ox Interpretation: Normal Medical Decision Making Medical Decision Making: dry gangrene R 2nd toe stable @ [place] defer revascularization to Dr. Romero PRIOR to Podiatry interventions/amputation of R 2nd toe no acute issues ok for d/c home. Disposition Doctor Will See Patient In The: Office Counseled Patient/Family Regarding: Studies Performed, Diagnosis - Disposition Referrals: Maite Denis MD [Staff Provider] - Devon Romero Jr., MD [Staff Provider] - Venkat Watt DPM [Staff Provider] - Disposition: HOME/ ROUTINE Disposition Time: 15:17 Condition: GOOD Additional Instructions: DRY gangrene of the R 2nd toe is a stable condition which may be re-evaluated by Dr. Romero Call his office to make an outpatient appt. IF the toe becomes foul smelling or wet then return to the ED for further evaluation Instructions: Gangrene (DC) Forms: [employer] (Gambian) - Clinical Impression Clinical Impression: Dry gangrene - Scribe Statement The provider has reviewed the documentation as recorded by the Walter Estrada Provider Attestation: All medical record entries made by the Walter were at my direction and personally dictated by me. I have reviewed the chart and agree that the record accurately reflects my personal performance of the history, physical exam, medical decision making, and the department course for this patient. I have also personally directed, reviewed, and agree with the discharge instructions and disposition.
[2018-10-08 16:24] VITALS: BP 100/63; PULSE 65; RESP 16
== END 2018-10-08 15:57 | disposition home or self-care (01) ==
LOC: C.ER 12:22
DX: I96 Gangrene, not elsewhere classified (principal); E78.00 Pure hypercholesterolemia, unspecified; I12.0 Hypertensive chronic kidney disease with stage 5 chronic kidney disease or end stage renal disease; N18.6 End stage renal disease; I50.9 Heart failure, unspecified